=== PATIENT | female | born 1965 | race Caucasian/White ===

== ENCOUNTER → 2016-12-04 | Outpatient (CLI) | payer BC ==
[~2016-12-04] MED LIST: CALCTAB5 PO; CONJ1TAB; METH500T37 PO; MONT1TAB3 PO; OMEP40CA PO; PROC1TAB5 PO; SERT-234 PO; TOPI100T20 PO; TOPI25TA99 PO; [UNRECOGNIZED DRUG - OTHER] INH; midrin
== END | disposition home or self-care (01) ==
LOC: C.PAPS 16:36
PROVIDERS: ATTEND Obstetrics & Gynecology
DX: Z01.419 Encounter for gynecological examination (general) (routine) without abnormal findings (principal); N95.9 Unspecified menopausal and perimenopausal disorder

== ENCOUNTER → 2017-02-06 | Outpatient (CLI) | payer BC | END | disposition home or self-care (01) | LOC: C.MAMM 15:35 | DX: M81.0 Age-related osteoporosis without current pathological fracture (principal) ==

== ENCOUNTER → 2017-08-08 | Outpatient (CLI) | payer OTHER ==
--- NOTE | 2017-08-08 15:10 | MAMMOGRAPHY REPORT ---
BILATERAL DIGITAL SCREENING MAMMOGRAM TOMOSYNTHESIS WITH CAD: 08/08/2017 CLINICAL HISTORY: Routine screening. Patient has no complaints. TECHNIQUE: Breast tomosynthesis in addition to standard 2D mammography was performed. Current study was also evaluated with a Computer Aided Detection (CAD) system. COMPARISON: Comparison is made to exams dated: 08/04/2016 mammogram, 01/18/2016 mammogram, 07/13/2015 mammogram, 07/06/2015 mammogram, 07/03/2014 mammogram, and 05/28/2012 mammogram - [facility]. BREAST COMPOSITION: The tissue of both breasts is heterogeneously dense, which may obscure small mas ses. FINDINGS: No suspicious masses, calcifications, or areas of architectural distortion are noted in ei ther breast. There has been no significant interval change compared to prior exams. Scattered bilater al benign-appearing calcifications are again noted. IMPRESSION: ACR BI-RADS CATEGORY 2: BENIGN There is no mammographic evidence of malignancy. A 1 year screening mammogram is recommended. The pa tient will receive written notification of the results. Approximately 10% of breast cancers are not detected with mammography. A negative mammographic report should not delay biopsy if a clinically suggestive mass is present. Alesha Marie M.D. /:08/08/2017 08:31:29 Latex Thread Machine Operator: Bettye MALAGON)(M), [facility] letter sent: Normal 1/2 BI-RADS Code: ACR BI-RADS Category 2: Benign
== END | disposition home or self-care (01) ==
LOC: C.MAMM 08:05
PROVIDERS: ATTEND Obstetrics & Gynecology
DX: Z12.31 Encounter for screening mammogram for malignant neoplasm of breast (principal)

== ENCOUNTER 2020-05-20 16:03 | Inpatient (IN) ==
[2020-05-20] MEDS ORDERED: LIDO/EPINEPHRINE/SOD BICARB 20 ML VIAL ONE (16:18)
[2020-05-20] MEDS ORDERED: MoRPHine SULFATE 2 MG/ML CARP ONE (17:18)
--- NOTE | 2020-05-20 17:31 | XRay Report ---
SINGLE VIEW CHEST CLINICAL HISTORY: Status post chest tube placement. FINDINGS: An AP, portable, supine chest radiograph is compared to study dated 05/20/2020 and correlat ed with chest CT dated 07/23/2018. A left internal jugular central venous infusion port is unchanged in position. A chest tube has been placed at the left lung base. The left-sided pneumothorax has signif icantly decreased in size. A small residual left apical pneumothorax is seen with approximately 1.5 c m of pleural separation. There is elevation of the left hemidiaphragm with atelectasis at the left parish ng base in a small left pleural effusion. The right lung appears clear. The trachea is midline. No ri ght-sided pneumothorax is seen. The bony thorax is grossly intact. IMPRESSION: A left-sided chest tube has been placed as above. The left pneumothorax has significantly decreased in size. ACT 112: Negative or not required by law. Electronically signed by: Jonathan Leo M.D. 05/20/2020 5:30 PM
--- NOTE | 2020-05-20 17:34 | Operative Report ---
PG Post Operative Report Pre & Post Diagnosis Large left pneumothorax s/p port placement I identified the patient and participated in the time-out.: Yes Procedure Insertion of left chest tube, 20 Fr Surgeon Ilan Vee, Framing Specialist None Estimated Blood Loss 5 Findings Consistent with Post-Op Diagnosis [place] of air upon entrance to thoracic cavity Specimens None Drains 20Fr Chest tube Anesthesia Type Local Complications none Indications 55 yo female with large left pneumothorax s/p mediport placement Description of Procedure Patient was placed in the supine position with her left arm abducted over her head. The left chest was prepped and draped in the usual sterile fashion. A timeout was called, procedure was verified as left chest tube placement. Surgical and nursing teams agreed and the procedure was begun. Using the infra- mammary fold as a landmark, the skin was anesthetized between the 4th and 5th rib space as well as the periosteum of the rib itself. An incision was made using an #11 blade scalpel and the subcutaneous tissue was spread using a Elena clamp. Then the thoracic cavity was entered blunty using a Elena clamp going just over the 5th rib. A gush of air was noted. Finger sweep was performed and no adhesions were noted. A 20Fr chest tube was then placed aimed toward the apex. The 12cm line was at the skin level. The chest tube was then sutured into place using 2-0 silk suture and attached to the Pleuravac with wall suct ion. Vaseline gauze occlusive dressing was applied. The patient tolerated the procedure well and post-procedure X-ray was ordered. I attest to the content of the Intraoperative Record and any orders documented therein. Any exceptions are noted below.
--- NOTE | 2020-05-20 17:39 | History & Physical Report ---
Date of Service May 20, 2020 Assessment & Plan (1) Pneumothorax: Admission and Anticipated Discharge Date Admission Date: This is a 55y F with a PMH of ovarian ca who is s/p mediport placement on 05/17/20 who presented to the [facility] on 05/20/20 with complaints of shortness of breath. She was asked to come in and obtain a CXR which revealed a moderate to large L pneumothorax. Patient was evaluated in the ED and a 20F chest tube was placed by Dr. Vee. Patient tolerated the procedure well. We will plan to admit the patient, keep chest tube to -20 continuous suction, and repeat CXR tomorrow morning. Will place patient on supplemental nasal cannula and continuous pulse ox. Plan will be to keep CT to suction for at least 48 hours. History of Present Illness Primary Care Provider: Jose Prado Jr, DO This is a 55y F with a PMH of ovarian ca who is s/p mediport placement on 05/17/20 who presented to the [facility] on 05/20/20 with complaints of shortness of breath. Patient reports she started to experience some shortness of breath and pain into her L chest starting sunday night after her mediport placement. She stated she eventually could not get comfortable in certain positions and could not lie on her L side. She was able to go to her chemo appointment this week without any issues noted with the port. Today, she called into the office due to progressive symptoms and she was asked to come in to obtain a CXR. CXR subsequently revealed a moderate to large left sided pneumothorax. Results were noted and she was asked to come into the ED for further evaluation. Allergies Allergy/AdvReac Type Severity Reaction Status Date / Time doxycycline Allergy Mild RASH Verified 05/17/20 05:47 Penicillins AdvReac Mild Nausea, Verified 05/17/20 05:47 diarrhea Home Medications Home Medications Medication Instructions Recorded Confirmed Type pantoprazole 40 mg granules 40 mg PO QAM 07/28/19 05/17/20 History delayed-release for susp in packet montelukast 10 mg tablet 10 mg PO QPM tab 11/05/19 05/17/20 History sertraline 100 mg tablet 200 mg PO QPM tab 11/05/19 05/17/20 History dapsone 25 mg PO BID 04/13/20 05/17/20 History famotidine 20 mg PO QAM 04/13/20 05/17/20 History cholecalciferol (vitamin D3) 50 50 mcg PO QAM 05/11/20 05/17/20 History mcg (2,000 unit) capsule fexofenadine 180 mg tablet 180 mg PO HS 05/11/20 05/17/20 History fluticasone propionate 50 1 spray INTRANASAL BID 05/11/20 05/17/20 History mcg/actuation nasal spray,suspension topiramate 100 mg tablet 100 mg PO QPM 05/11/20 05/17/20 History Ajovy Autoinjector 225 mg SUBCUT UD 05/12/20 05/17/20 History Qvar RediHaler 1 inh INHALATION QAM 05/12/20 05/17/20 History Ubrelvy 50 mg PO UD PRN 05/12/20 05/17/20 History prochlorperazine maleate 5 mg PO BID PRN 05/12/20 05/17/20 History [Compazine] Past Med/Surg History Medical History Anxiety and depression Asthma "MILD" Environmental allergies GERD (gastroesophageal reflux disease) History of anorexia nervosa History of ileus S/P HYSTERECTOMY 6 WEEKS AGO Itching REASON FOR DAPSONE Low iron HX IRON INFUSION Migraine Ovarian cancer PRESENT DX Surgical History H/O total hysterectomy + REMOVAL OVARIAN CYSTECTOMY History of esophagogastroduodenoscopy (EGD) History of knee surgery patella repair left Nausea and vomiting after administration of anesthetic agent [place] teeth removed Family History Grandmother (Maternal) Breast cancer Hypertension Grandfather (Maternal) No problems noted. 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 Seatbelt Use: always Sunscreen Use: Yes Assistive Devices: Glasses Review of Systems Review of Systems: All systems reviewed & are unremarkable except as noted in HPI & below Respiratory: + dyspnea Cardiovascular: Additional Comments: L sided chest pain Physical Exam Physical Exam: awake/alert Constitutional: + thin and cooperative; no acute distress and not diaphoretic Eyes: PERRL, conjunctivae normal, anicteric sclerae Neck: trachea midline, no thyromegaly Respiratory: normal respiratory effort; no respiratory distress Cardiovascular: RRR, no murmur, no edema Gastrointestinal (Abdomen): Inspection/Auscultation: abdomen normal to inspection Percussion/Palpation: abdomen soft Musculoskeletal: no cyanosis or clubbing, extremities motor strength 5/5 Skin: no rashes, warm and dry L mediport noted, incisions c/d/i with dermabond overtop, ecchymosis noted michelle-port Psychiatric: A+Ox3, euthymic affect Results & Data Results & Data ([facility]) Vital Signs (Past 12 Hours) Vital Signs Temp Pulse Resp BP Pulse Ox 05/20/20 16:09 36.9 C 92 H 18 119/77 94 XR chest 2V PA/lateral CLINICAL HISTORY: R07.9 - Chest pain, unspecified COMPARISON STUDY: 05/17/2020 FINDINGS: There is a moderate to large left-sided pneumothorax with pleural separation of 8 cm. There is a left-sided Mediport catheter. There are left lower lobe airspace opacities, likely atelectatic.[ IMPRESSION: Moderate to large left-sided pneumothorax with pleural separation of 8 cm. ACT 112: Negative or not required by law. Electronically signed by: Keanu Bowling M.D. 05/20/2020 3:56 PM Code Status & VTE Plan VTE Prophylaxis Plan VTE Prophylaxis will be ordered: Yes Supervising Physician Co-Signing Physician Notes I personally saw and evaluated the patient with Leisa Lim PA-C and agree with the assessment and plan 55 yo female with L PTX s/p mediport placement -Chest tube placed with good re-expansion of lung -Keep to wall suction -Repeat CXR in AM -Pain control PRN -Continuous 2L O2 NC PG Care Time/CCT Total # of Minutes Spent Total Time Spent with Patient: Total time spent is greater than 50% in coordination of care (as documented) at patient's floor/unit and/or counseling patient: Coding Level of Care Code None Diagnoses Pneumothorax J93.9
[2020-05-20] MEDS ORDERED: oxyCODONE HCL IR 5 MG TAB (IMMEDIATE RELEASE) PO PRN (18:51)
[2020-05-20] MEDS ORDERED: PROCHLORPERAZINE MALEATE 5 MG TAB PO PRN (18:51)
[2020-05-20] MEDS: MoRPHine SULFATE 2 MG/ML CARP IV PRN (21:10)
[2020-05-20] MEDS: SERTRALINE HCL 100 MG TABLET PO SCH (21:14)
[2020-05-20] MEDS: MONTELUKAST SODIUM 10 MG TABLET PO SCH (21:14)
[2020-05-20] MEDS: TOPIRAMATE 100 MG TAB PO SCH (21:15)
[2020-05-20] MEDS: FEXOFENADINE HCL 180 MG TAB PO SCH (21:15)
[2020-05-20] MEDS: FLUTICASONE PROPIONATE NA SPR 16 GM BTL SCH (21:27)
[2020-05-20] MEDS: ONDANSETRON 8MG OD TAB PO PRN (21:28)
[2020-05-20] MEDS: OLANZAPINE 2.5 MG TAB PO SCH (21:28)
[2020-05-21] MEDS: MoRPHine SULFATE 2 MG/ML CARP IV PRN (03:59)
[2020-05-21] MEDS: ONDANSETRON 8MG OD TAB PO PRN ×2 (07:44→17:46)
[2020-05-21] MEDS: FAMOTIDINE 20 MG TAB PO SCH (07:45)
[2020-05-21] MEDS: FLUTICASONE PROPIONATE NA SPR 16 GM BTL SCH ×2 (07:45→20:01)
[2020-05-21] MEDS: FLUTICASONE FUROATE 100MCG 14 PUFFS/INHALER INH SCH (07:45)
--- NOTE | 2020-05-21 07:53 | XRay Report ---
XR chest 1V portable HISTORY: L pneumothorax s/p chest tube COMPARISON: Chest 05/20/2020. FINDINGS: Left-sided chest tube terminates in the left midlung zone. Decrease in size in a tiny left apical pneumothorax which demonstrates a maximal pleural gap of 4 mm. Left jugular Port-A-Cath termin ates in the distal SVC. Left basilar subsegmental atelectasis persists. Right lung is clear. No pleur al effusions. IMPRESSION: Decrease in size in a tiny left pneumothorax. Left-sided chest tube appears in good position. ACT 112: Negative or not required by law. Electronically signed by: William Jaimes M.D. 05/21/2020 7:52 AM
--- NOTE | 2020-05-21 08:19 | Surgery Progress Note ---
Date of Service May 21, 2020 Assessment & Plan (1) Pneumothorax: Patient feeling improvement in her symptoms CXR this AM revealed decrease in size in a tiny L pneumothorax; Chest tube in good position For now will continue chest tube to -20 suction, will obtain another AM CXR tomorrow and if looks well consider placing to waterseal vs clamping prior to removal Will remove oxycodone and add tylenol+ codeine if needed, not to exceed more than 3grams of acetaminophen within 24 hours Admission and Anticipated Discharge Date Admission Date: May 20, 2020 Supervising Physician Co-Signing Physician Notes I personally saw and evaluated the patient with Leisa Lim PA-C and agree with the assessment and plan 55 yo female with iatrogenic L PTX s/p mediport placement on 05/17 -PTX nearly resolved on AM CXR -Leave to suction another 24 hours -Repeat CXR in AM Subjective Patient feeling well this AM. States her breathing is improved. Her pain s/p chest tube procedure yesterday is also improving. She states she does not like how oxycodone makes her feel so she may try tylenol today for pain. Physical Exam Physical Exam: awake/alert Respiratory: normal respiratory effort; no respiratory distress Results & Data ([facility]) Vital Signs (Past 12 Hours) Vital Signs Temp Pulse Resp BP Pulse Ox 05/21/20 07:12 36.5 C 76 16 100/67 94 05/21/20 03:34 36.8 C 80 16 106/71 94 05/20/20 21:52 36.5 C 81 16 109/71 96 05/20/20 20:43 36.5 C 106 H 18 105/71 92 PG Care Time/CCT Total # of Minutes Spent Total Time Spent with Patient: Total time spent is greater than 50% in coordination of care (as documented) at patient's floor/unit and/or counseling patient: Coding Level of Care Code None Diagnoses Pneumothorax J93.9
[2020-05-21] MEDS: PANTOprazole 40 MG TAB PO SCH (09:04)
[2020-05-21] MEDS: ACETAMINOPHEN 325 MG TAB PO PRN ×3 (09:05→17:45)
--- NOTE | 2020-05-21 19:12 | Electrocardiogram Report ---
Test Reason : Blood Pressure : / mmHG Vent. Rate : 079 BPM Atrial Rate : 079 BPM P-R Int : 140 ms QRS Dur : 062 ms QT Int : 356 ms P-R-T Axes : 080 059 084 degrees QTc Int : 408 ms Normal sinus rhythm Possible Septal infarct , age undetermined Abnormal ECG When compared with ECG of 11-MAY-2020 10:56, Septal infarct is now Present Confirmed by Bull Reyes ([id number]) on 05/21/2020 7:12:16 PM Referred By: Ilan Vee Confirmed By:Bull Reyes
[2020-05-21] MEDS: SERTRALINE HCL 100 MG TABLET PO SCH (20:01)
[2020-05-21] MEDS: FEXOFENADINE HCL 180 MG TAB PO SCH (20:01)
[2020-05-21] MEDS: OLANZAPINE 2.5 MG TAB PO SCH (20:01)
[2020-05-21] MEDS: TOPIRAMATE 100 MG TAB PO SCH (20:01)
[2020-05-21] MEDS: MONTELUKAST SODIUM 10 MG TABLET PO SCH (20:01)
[2020-05-22] MEDS: ACETAMINOPHEN 325 MG TAB PO PRN ×2 (04:04→08:00)
[2020-05-22] MEDS: ONDANSETRON 8MG OD TAB PO PRN ×3 (04:04→21:10)
--- NOTE | 2020-05-22 07:56 | XRay Report ---
SINGLE VIEW CHEST CLINICAL HISTORY: Follow-up pneumothorax. FINDINGS: An AP, portable, supine chest radiograph is compared to study dated 05/21/2020 and correlat ed with chest CT dated 07/23/2018. A left internal jugular central venous infusion port is unchanged in position a chest tube is again seen projecting over the left mid chest. There is only trace residual left apical pneumothorax with approximately 4 mm of pleural separation. There is elevation of the le ft hemidiaphragm with atelectasis an trace pleural fluid seen at the left lung base. The right lung a ppears clear. The trachea is midline. No right-sided pneumothorax is seen. The bony thorax is grossly intact. Minimal subcutaneous emphysema is seen along the left chest wall. IMPRESSION: 1. A left-sided chest tube remains in place with trace residual left apical pneumothorax. 2. Trace left pleural effusion. ACT 112: Negative or not required by law. Electronically signed by: Jonathan Leo M.D. 05/22/2020 7:55 AM
--- NOTE | 2020-05-22 07:57 | Surgery Progress Note ---
Date of Service May 22, 2020 Assessment & Plan (1) Pneumothorax: -CXR today shows near resolution -no air leak on suction -will place CT on water seal and repeat CXR in am with potential to remove CT and d/c to home tomorrow as above. small apical ptx still. will place on water seal...if cxr tomorrow looks good will d/c CT and consider d/c. Admission and Anticipated Discharge Date Admission Date: May 20, 2020 Subjective pt. doing well. Pain controlled. No SOB. Physical Exam Constitutional: well developed and well nourished; no acute distress Respiratory: normal respiratory effort; no respiratory distress and no labored breathing CT in place; no air leak on suction Results & Data ([facility]) Vital Signs (Past 12 Hours) Vital Signs Temp Pulse Resp BP Pulse Ox 05/22/20 06:15 36.9 C 87 15 112/73 97 05/22/20 03:49 36.8 C 90 15 117/80 96 05/21/20 23:38 36.3 C L 73 14 107/70 98 PG Care Time/CCT Total # of Minutes Spent Total Time Spent with Patient: Total time spent is greater than 50% in coordination of care (as documented) at patient's floor/unit and/or counseling patient: Coding Level of Care Code 53028 Subseq Hosp Care Lvl 1 Diagnoses Pneumothorax J93.9
[2020-05-22] MEDS: FLUTICASONE FUROATE 100MCG 14 PUFFS/INHALER INH SCH (07:59)
[2020-05-22] MEDS: FLUTICASONE PROPIONATE NA SPR 16 GM BTL SCH ×2 (07:59→20:41)
[2020-05-22] MEDS: FAMOTIDINE 20 MG TAB PO SCH (08:00)
[2020-05-22] MEDS: PANTOprazole 40 MG TAB PO SCH (09:03)
[2020-05-22] MEDS: MoRPHine SULFATE 2 MG/ML CARP IV PRN (12:18)
[2020-05-22] MEDS: GLYCERIN ADULT 12 SUPP/BOX SUPP PR PRN (15:36)
[2020-05-22] MEDS: ACETAMINOPHEN W/CODEINE #3 1 TAB PO PRN (17:58)
[2020-05-22] MEDS: TOPIRAMATE 100 MG TAB PO SCH (20:42)
[2020-05-22] MEDS: SERTRALINE HCL 100 MG TABLET PO SCH (20:42)
[2020-05-22] MEDS: MONTELUKAST SODIUM 10 MG TABLET PO SCH (20:42)
[2020-05-22] MEDS: FEXOFENADINE HCL 180 MG TAB PO SCH (20:42)
[2020-05-22] MEDS: OLANZAPINE 2.5 MG TAB PO SCH (20:42)
[2020-05-23] MEDS: ACETAMINOPHEN 325 MG TAB PO PRN ×3 (00:27→20:40)
--- NOTE | 2020-05-23 07:42 | XRay Report ---
XR chest 1V portable HISTORY: 55 years-old Female pneumothorax follow-up study in a patient with left-sided pneumothorax COMPARISON: Chest radiograph 05/22/2020 7:05 AM TECHNIQUE: Portable AP view of the chest FINDINGS: Unchanged positioning of a left IJ Ijufum-e-Bdbs catheter. Left-sided chest tube. Small left apical p neumothorax, apical pleural separation of 12 mm, previously 4 mm. Pneumothorax component at the left lung base is also apparent. Right lung is clear. No overt pulmonary edema or airspace consolidation t ypical for pneumonia. Possible trace left pleural effusion. Bones appear normal. IMPRESSION: Unchanged positioning of the left-sided chest tube with slightly increased size of the sm all left-sided pneumothorax. ACT 112: Negative or not required by law. The above report was generated using voice recognition software. It may contain grammatical, syntax o r spelling errors. Electronically signed by: Mello Calero M.D. 05/23/2020 7:41 AM
[2020-05-23] MEDS: ONDANSETRON 8MG OD TAB PO PRN ×3 (08:11→23:44)
[2020-05-23] MEDS: FLUTICASONE FUROATE 100MCG 14 PUFFS/INHALER INH SCH (08:12)
[2020-05-23] MEDS: FAMOTIDINE 20 MG TAB PO SCH (08:12)
[2020-05-23] MEDS: FLUTICASONE PROPIONATE NA SPR 16 GM BTL SCH ×2 (08:13→20:41)
--- NOTE | 2020-05-23 08:33 | Surgery Progress Note ---
Date of Service May 23, 2020 Assessment & Plan (1) Pneumothorax: clinically doing well cxr today shows slight increase in ptx. will keep on water seal. repeat cxr tomorrow. if same or better will pull CT and d/c tomorrow. Admission and Anticipated Discharge Date Admission Date: May 20, 2020 Subjective pt feeling ok. no new complaints. no sob. Physical Exam Physical Exam: alert. nad CT in place. no air leak on pleurovac Results & Data ([facility]) Vital Signs (Past 12 Hours) Vital Signs Temp Pulse Resp BP Pulse Ox 05/23/20 07:36 37 C 96 H 16 119/83 95 05/23/20 03:06 36.9 C 85 15 109/75 96 05/23/20 00:20 36.9 C 91 H 14 102/71 95 PG Care Time/CCT Total # of Minutes Spent Total Time Spent with Patient: Total time spent is greater than 50% in coordination of care (as documented) at patient's floor/unit and/or counseling patient: Coding Level of Care Code None Diagnoses Pneumothorax J93.9
[2020-05-23] MEDS: PANTOprazole 40 MG TAB PO SCH (10:08)
[2020-05-23] MEDS: ACETAMINOPHEN W/CODEINE #3 1 TAB PO PRN ×2 (11:41→15:47)
[2020-05-23] MEDS: GLYCERIN ADULT 12 SUPP/BOX SUPP PR PRN (16:34)
[2020-05-23] MEDS: FEXOFENADINE HCL 180 MG TAB PO SCH (20:40)
[2020-05-23] MEDS: MONTELUKAST SODIUM 10 MG TABLET PO SCH (20:40)
[2020-05-23] MEDS: OLANZAPINE 2.5 MG TAB PO SCH (20:40)
[2020-05-23] MEDS: TOPIRAMATE 100 MG TAB PO SCH (20:41)
[2020-05-23] MEDS: SERTRALINE HCL 100 MG TABLET PO SCH (20:41)
--- NOTE | 2020-05-24 07:31 | XRay Report ---
SINGLE VIEW CHEST CLINICAL HISTORY: Follow-up pneumothorax. FINDINGS: An AP, portable, supine chest radiograph is compared to study dated 05/23/2020 and correlate d with chest CT dated 07/23/2018. A left internal jugular central venous infusion port is unchanged in position. A chest tube is again seen projecting over the left mid chest. A small residual left apical pneumothorax is unchanged from yesterday with approximately 12 mm of pleural separation. There is el evation of the left hemidiaphragm with atelectasis an trace pleural fluid seen at the left lung base. The right lung appears clear. The trachea is midline. No right-sided pneumothorax is seen. The bony thorax is grossly intact. Minimal subcutaneous emphysema is seen along the left chest wall. IMPRESSION: 1. A left-sided chest tube remains in place. A small residual left apical pneumothorax is unchanged f rom yesterday. 2. Trace left pleural effusion. ACT 112: Negative or not required by law. Electronically signed by: Jonathan Leo M.D. 05/24/2020 7:30 AM
[2020-05-24] MEDS: ACETAMINOPHEN 325 MG TAB PO PRN (08:47)
[2020-05-24] MEDS: FLUTICASONE FUROATE 100MCG 14 PUFFS/INHALER INH SCH (08:47)
[2020-05-24] MEDS: FLUTICASONE PROPIONATE NA SPR 16 GM BTL SCH (08:47)
[2020-05-24] MEDS: ONDANSETRON 8MG OD TAB PO PRN (08:48)
[2020-05-24] MEDS: FAMOTIDINE 20 MG TAB PO SCH (08:48)
[2020-05-24] MEDS: PANTOprazole 40 MG TAB PO SCH (08:48)
--- NOTE | 2020-05-24 09:21 | Surgery Progress Note ---
Date of Service May 24, 2020 Assessment & Plan (1) Pneumothorax: patient here with L sided ptx s/p mediport placement chest tube was initially to suction but when placed on water seal there was noted to be a small increase in ptx; it has since been to water seal >24 hours and CXR this AM reveals a small residual left apical pneumothorax that is unchanged from yesterday patient denies any new chest pain or shortness of breath likely anticipate removing chest tube later today and discharge to home as above. feeling well. xray same as yesterday. CT removed without difficulty. will d/c home today. f/u next week. Admission and Anticipated Discharge Date Admission Date: May 20, 2020 Subjective Patient denies any complaints. She denies any chest pain or shortness of breath. Looking forward to going home. Physical Exam Physical Exam: awake/alert Respiratory: normal respiratory effort; no respiratory distress L sided chest tube [facility]) Vital Signs (Past 12 Hours) Vital Signs Temp Pulse Resp BP Pulse Ox 05/24/20 07:41 36.9 C 97 H 16 124/86 99 05/23/20 23:41 37 C 87 16 142/84 H 95 SINGLE VIEW CHEST CLINICAL HISTORY: Follow-up pneumothorax. FINDINGS: An AP, portable, supine chest radiograph is compared to study dated 05/23/2020 and correlated with chest CT dated 07/23/2018. A left internal jugular central venous infusion port is unchanged in position. A chest tube is again seen projecting over the left mid chest. A small residual left apical pneumo thorax is unchanged from yesterday with approximately 12 mm of pleural separation. There is elevation of the left hemidiaphragm with atelectasis an trace pleural fluid seen at the left lung base. The right lung appears clear. The trachea is midline. No right-sided pneumothorax is seen. The bony thorax is grossly intact. Minimal subcutaneous emphysema is seen along the left chest wall. IMPRESSION: 1. A left-sided chest tube remains in place. A small residual left apical pneumothorax is unchanged from yesterday. 2. Trace left pleural effusion. ACT 112: Negative or not required by law. Electronically signed by: Jonathan Leo M.D. 05/24/2020 7:30 AM PG Care Time/CCT Total # of Minutes Spent Total Time Spent with Patient: Total time spent is greater than 50% in coordination of care (as documented) at patient's floor/unit and/or counseling patient: Coding Level of Care Code None Diagnoses Pneumothorax J93.9
--- NOTE | 2020-05-25 10:22 | Discharge Summary ---
Date of Service May 25, 2020 Admission HPI Per Admitting Provider This is a 55y F with a PMH of ovarian ca who is s/p mediport placement on 05/17/[address] [facility] on 05/20/20 with complaints of shortness of breath. Patient reports she started to experience some shortness of breath and pain into her L chest starting sunday night after her mediport placement. She stated she eventually could not get comfortable in certain positions and could not lie on her L side. She was able to go to her chemo appointment this week without any issues noted with the port. Today, she called into the office due to progressive symptoms and she was asked to come in to obtain a CXR. CXR subsequently revealed a moderate to large left sided pneumothorax. Results were noted and she was asked to come into the ED for further evaluation. Principal Diagnosis left pneumothorax Discharge Exam awake/alert Constitutional + thin and cooperative; no acute distress and not diaphoretic Eyes PERRL, conjunctivae normal, anicteric sclerae Respiratory normal respiratory effort; no respiratory distress and no labored breathing saturating well on room air Discharge Data Allergies Allergy/AdvReac Type Severity Reaction Status Date / Time doxycycline Allergy Mild RASH Verified 05/17/20 05:47 gluten AdvReac Mild Unknown Verified 05/21/20 13:32 lactose AdvReac Mild Abdominal Verified 05/21/20 13:32 Pain Penicillins AdvReac Mild Nausea, Verified 05/17/20 05:47 diarrhea Hospital Course (1) Pneumothorax on left: This is a 55y F with a PMH of ovarian ca who is s/p mediport placement on 05/17/20 who presented [address] the [facility] on 05/20/20 with complaints of shortness of breath. Workup with a CXR revealed a left sided pneumothorax. A chest tube was placed in the ER by Dr. Vee. A post placement CXR revealed lung had re- expanded. Patient was admitted and chest tube was kept to -20 suction for ~48hours. On Tuesday 05/22 AM CXR showed near resolution of ptx & decision was made to trial the chest tube to water seal as patient clinically feeling much better. CXR obtained on 05/23 showed a slightly increased size in L ptx. Plan to keep chest tube to water seal and repeat imaging again in the AM. On 05/24 CXR showed no change in small residual ptx. During patient's admission she denied any chest pain or shortness of breath with chest tube in place. On 05/24 decision was made to remove chest tube which was performed without event. She was deemed stable for discharge to home thereafter in stable condition. She was saturating well on room air and denied any dyspnea. She was asked to follow up in clinic within 1 week. Total Time Total Time Spent Total Time Spent (In Minutes): 15 Discharge Plan Discharge Items Patient Disposition: Home - Self-Care Reason For Visit: PNEUMOTHORAX Discharge Diagnosis: pneumothorax Activity: Per Instructions section Lifting: Gradually increase as tolerated Bathing Comment: may shower 48hours after chest tube removed. no soaking in tubs/pools Exercise/Sports: Gradually increase as tolerated Driving/Machine Use: Resume 1 day after discharge Non-emergency contact: Surgeon Call non-emergency contact if: you have any medication questions, your symptoms worsen, your pain is not controlled, your pain is worsening, your pain is unusual for you, you have a fever, your temperature is above 101.5, your wound has increased redness, your wound has increased drainage and your wound pain has increased Follow-up/Referrals: Ilan Vee DO [Emergency Provider] - 06/01/20 9:45 am (Please call to schedule follow up in clinic within 2 weeks) Jose Prado Jr, DO [Primary Care Provider] - 05/31/20 11:00 am (TELE HEALTH APPT WITH PCP ; PCP WILL CALL YOU ON TELEPHONE) Diet: Regular Addtl Attending Provider Instructions: Addtl Full Stack Developer Provider Instructions: Please change dressing around your chest tube site daily. Cover with vaseline 4x4 gauze, dry 4x4 gauze, and adhere with medical tape. Pending Studies at Discharge: No Stand-Alone Forms: [facility] [employer], Smoking Cessation Medications and DC Order Prescriptions: Continued cholecalciferol (vitamin D3) 50 mcg (2,000 unit) capsule 50 mcg PO QAM RF: 0 fluticasone propionate [Flonase Allergy Relief] 50 mcg/actuation spray,suspension 1 spray intranasal BID RF: 0 fexofenadine [Liana Allergy] 180 mg tablet 180 mg PO HS RF: 0 topiramate [Topamax] 100 mg tablet 100 mg PO QPM RF: 0 Protonix [address] for susp in packet 40 mg PO QAM RF: 0 sertraline 100 mg tablet 200 mg PO QPM RF: 0 montelukast 10 mg tablet 10 mg PO QPM RF: 0 prochlorperazine maleate [Compazine] 5 mg Tablet 5 mg PO BID PRN (Reason: Nausea) RF: 0 Qvar RediHaler 40 mcg/actuation Hfa Aerosol Breath Activated 1 inh INHALATION QAM RF: 0 Ubrelvy 50 mg Tablet 50 mg PO UD PRN (Reason: Migraine Headache) RF: 0 Ajovy Autoinjector 225 mg/1.5 mL Auto-Injector 225 mg SUBCUT UD RF: 0 famotidine 20 mg tablet 20 mg PO QAM RF: 0 dapsone 25 mg tablet 25 mg PO BID RF: 0 Discharge Orders: Discharge Order (Routine); Ordered 05/24/20 Ordered By: Manpreet Owen/Other Patient Handouts: DVT Post Op Prevention, Pneumothorax (Collapsed Lung) Admission Data Admit Date/Time: 05/20/20 17:26 Attending Provider: Ilan Vee Admit Provider: Ilan Vee Primary Care Provider: Jose Prado Jr Other Interventions: Discharge Summary Assessment (RN) Last Done: 05/24/20 13:57 Coding Level of Care Code D/C Day Management <30 mins Diagnoses Pneumothorax on left J93.9
== END 2020-05-24 14:40 | disposition home or self-care (01) | DRG 200 ==
LOC: ED 16:03 → 3E 17:26

== ENCOUNTER 2022-02-26 15:20 | Inpatient (IN) ==
--- NOTE | 2022-02-26 15:51 | ED Triage Note ---
Date of Service February 26, 2022 History of Present Illness This patient was briefly evaluated while in triage. An abbreviated physical exam was performed. This patient is a 57-year-old Female with past medical history of ovarian cancer on chemo who presents to the ED for evaluation of possible blockage of c olostomy. Last normal output was yesterday morning around 6am. Having diffuse abdominal cramping since last night, but focusing around the stoma today. Has not been eating today, just drinking. Reports nausea but no vomiting. Was eating normally prior to today. Had paracentesis 2 days ago. No fevers or chills. Physical Exam CONSTITUTIONAL: No acute distress. Well appearing. RESPIRATORY: Clear to auscultation bilaterally. Equal expansion bilaterally. CARDIOVASCULAR: Regular rate and rhythm with no murmurs, rubs or gallops. Normal peripheral perfusion. GASTROINTESTINAL: Diffuse abdominal distention, mildly tender throughout. Decreased bowel sounds. Ostomy site tenderness, no output in bag. NEUROLOGIC: Alert and oriented X 4 with normal affect. Initial orders for labs and / or imaging were placed and patient was placed in the waiting area until a bed is available. Please see further documentation for the full ED course.
[2022-02-26] MEDS ORDERED: ONDANSETRON INJ 2 MG/ML 2 ML VIAL IV STA ×3 (15:52→20:01)
[2022-02-26 16:32] LABS: Basophils # (auto) 0.03 K/uL (0-0.2); Basophils % (auto) 0.5 %; Eosinophils # (auto) 0.02 K/uL (0-0.50); Eosinophils % (auto) 0.4 %; Hematocrit (blood only) 39.2 % (34.1-44.9); Hemoglobin 12.8 g/dl (12.0-16.0); Immature Granulocytes # (auto) 0.02 K/uL (0.00-0.02); Immature Granulocytes % (auto) 0.4 %; Lymphocytes # (auto) 1.11 K/uL (1.2-3.4); Lymphocytes % (auto) 19.8 %; Mean Corpuscular Hemoglobin 31.6 pg (25.0-34.0); Mean Corpuscular Hgb Conc 32.7 g/dL (32.0-36.0); Mean Corpuscular Volume 96.8 fL (80.0-100.0); Mean Platelet Volume 9.9 fL (9.4-12.3); Monocytes # (auto) 0.61 K/uL (0.24-0.82); Monocytes % (auto) 10.9 %; Neutrophils # (auto) 3.82 K/uL (1.4-6.5); Platelet Count 280 K/uL (130-400); RDW Coefficient of Variation 15.3 % (11.5-14.5); RDW Standard Deviation 54.4 fL (36.4-46.3); Red Blood Count 4.05 M/uL (3.93-5.22); White Blood Count 5.61 K/ul (4.8-10.8)
[2022-02-26 17:13] LABS: Alanine Aminotransferase 13 U/L (7-52); Albumin Globulin Ratio 1.2 (0.9-2); Albumin Level 4.1 gm/dl (3.4-5.0); Alkaline Phosphatase 108 U/L (34-104); Anion Gap 9 (3-11); BUN Creatinine Ratio 12.5 (10-20); Bilirubin,Total 0.6 mg/dl (0.2-1.0); Blood Urea Nitrogen 9 mg/dl (6-23); Calcium 9.2 mg/dl (8.5-10.1); Carbon Dioxide 25 mmol/L (21-32); Chloride 98 mmol/L (98-107); Creatinine Clr Calc Pharmacy 58.3 ml/min; Est GFR (African American) 109.3 ml/min; Est GFR (Non-African American) 94.3 ml/min; Globulin 3.4 gm/dl (2.5-4.0); Glucose 99 mg/dl (70-99(Fasting)); Lipase 3 U/L (11-82); Sodium 132 mmol/L (136-145); Total Protein 7.5 gm/dl (6.0-8.3)
[2022-02-26] MEDS ORDERED: SODIUM CHLORIDE 0.9% 1000ML 1,000 ML IV ONE (17:19)
[2022-02-26] MEDS ORDERED: MoRPHine SULFATE 4 MG/ML 1 ML CARP\\VIAL IV STA (17:19)
--- NOTE | 2022-02-26 17:32 | Emergency Department Note ---
Impression & Plan Diffuse abdominal pain, Ovarian cancer, Abdominal distension, Large bowel obstruction ED Provider Note NAME: NIVIA ASKEW AGE: 57 SEX: F : 1965 ARRIVES VIA: Walk-In INFORMANT: [Patient] ED PROVIDER(S): [Jonathan Bryson MD] CHIEF COMPLAINT: Ostomy problem HISTORY OF PRESENT ILLNESS: The patient is a 57-year-old female who presents to the ED with complaints of difficulty with her ostomy output. She has had 36 hours of no output. She has had some abdominal distention and now some colicky abdominal pain that at times is severe. She feels quite bloated. There has been no fever, no cough or congestion or respiratory complaints. She is concerned about a bowel blockage. REVIEW OF SYSTEMS: See HPI for pertinent positives and negatives. A total of ten systems were reviewed and were otherwise negative. PMHx/PSHx: See Below SOCIAL HISTORY: See Below. PHYSICAL EXAM: GENERAL: Patient is in no acute distress. Thin and frail. HEENT: No acute trauma, normocephalic atraumatic, mucous membranes moist, no nasal congestion, no scleral icterus. NECK: No stridor, no adenopathy, no meningismus, trachea is midline. LUNGS: Clear to auscultation bilaterally, no wheeze, no rhonchi, breath sounds equal. HEART: Without murmurs gallops or rubs, regular rate and rhythm. ABDOMEN: Soft, mildly diffusely tender, there is some abdominal distention. Bowel sounds are hyperactive. There is an ostomy that is beneath an empty ostomy bag. The ostomy is on the left. EXTREMITIES: No cyanosis or edema, full range of motion of all the joints without pain or difficulty, no signs for acute trauma. NEUROLOGIC: Oriented x 3, no acute motor or sensory deficits, no focal weakness. SKIN: No rash, no jaundice, no diaphoresis. Pale. DIFFERENTIAL DIAGNOSIS: Appendicitis, ovarian cyst, ovarian torsion, diverticulitis, UTI, obstruction, mesenteric ischemia, aortic pathology, inflammatory bowel disease, renal colic, PUD, pancreatitis, biliary pathology, hernia, volvulus, constipation, as well as other pathologies. EMERGENCY DEPARTMENT COURSE/PROCEDURES: MEDICAL DECISION MAKING: There is no leukocytosis or concerning anemia. There is a normal platelet count. Potassium was a bit low at 3.2. Sodium somewhat low at 132. No renal failure. Lactic acid level was not elevated making bowel ischemia less likely. No concerning liver enzyme elevation. No evidence for pancreatitis. Urinalysis does not show infection. COVID test was negative. Abdominal and pelvis CT shows a large bowel obstruction thought secondary to adhesions. On exam, the patient's abdomen was distended, her colostomy bag was empty. The patient received IV saline, 1 L. She was given IV potassium, IV Zofran. She received IV morphine. I spoke to general surgery, Dr. Law. For now, acute surgical intervention is not warranted. The patient should be hospitalized for decompression via NG tube. Hopefully, things will open spontaneously. If surgery is required, the patient may need transfer back to [facility] as this is where most of her surgeries have been performed. I spoke with the patient, I talked to the case finisher. The on-call hospitalist was consulted. Past Med/Surg History Medical History Anxiety and depression Asthma LAST USED RESCUE INHALER>BEEN A WHILE Bilateral tinnitus Colostomy present Environmental allergies GERD (gastroesophageal reflux disease) Gluten intolerance History of anorexia nervosa History of ileus S/P HYSTERECTOMY Itching REASON FOR DAPSONE Low iron HX IRON INFUSION Migraine Ovarian cancer PRESENT DX>REASON FOR A-PORT (HAS RECIEVED 6 CYCLES OF CHEMO 1 YEAR AGO) Surgical History H/O abdominal surgery AT [facility] 07/20/21 TO REMOVE CANCER IN ABDOMEN/COLON RESECTION WITH COLOSTOMY & INTRAPERITONEAL CHEMO H/O total hysterectomy + REMOVAL OVARIAN CYSTECTOMY History of colonoscopy History of esophagogastroduodenoscopy (EGD) History of knee surgery LEFT PATELLA REPAIR Nausea and vomiting after administration of anesthetic agent Port-A-Cath in place (08/30/21) Insertion Access Port with Fluoroscopy(Right) - Ilan Vee DO 08/30/2021 Gar[place] teeth removed Family History Grandmother (Maternal) Breast cancer Hypertension Grandfather (Maternal) No problems noted. 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 Seatbelt Use: always Sunscreen Use: Yes Assistive Devices: Glasses Allergies Allergies Allergy/AdvReac Type Severity Reaction Status Date / Time doxycycline Allergy Intermediate RASH Verified 02/26/22 17:42 gluten AdvReac Intermediate Abdominal Verified 02/26/22 17:42 Pain lactose AdvReac Intermediate Abdominal Verified 02/26/22 17:42 Pain Penicillins AdvReac Intermediate Nausea, Verified 02/26/22 17:42 diarrhea Home Meds Home Medications Medication Instructions Recorded Confirmed pantoprazole 40 mg granules 40 mg PO QAM 07/28/19 02/26/22 delayed-release for susp in packet (Protonix) montelukast 10 mg tablet 10 mg PO QPM 11/05/19 02/26/22 sertraline 100 mg tablet 200 mg PO QPM 11/05/19 02/26/22 dapsone 25 mg tablet 25 mg PO BID 04/13/20 02/26/22 famotidine 20 mg tablet 20 mg PO QAM 04/13/20 02/26/22 cholecalciferol (vitamin D3) 50 50 mcg PO QAM 05/11/20 02/26/22 mcg (2,000 unit) capsule fexofenadine 180 mg tablet 180 mg PO HS 05/11/20 02/26/22 (Liana Allergy) fluticasone propionate 50 1 spray intranasal BID 05/11/20 02/26/22 mcg/actuation nasal spray,suspension (Flonase Allergy Relief) topiramate 100 mg tablet (Topamax) 100 mg PO QPM 05/11/20 02/26/22 beclomethasone dipropionate 40 1 inh inhalation QAM 05/12/20 02/26/22 mcg/actuation HFA breath activated aerosol (Qvar RediHaler) fremanezumab-vfrm 225 mg/1.5 mL 225 mg subcut MONTHLY 05/12/20 02/26/22 subcutaneous auto-injector (Ajovy) prochlorperazine maleate 5 mg 5 mg PO BID PRN Nausea 05/12/20 02/26/22 tablet (Compazine) acetaminophen 325 mg tablet 325 mg PO QID PRN Pain 08/13/20 02/26/22 (Tylenol) pvsidzacarqcu-krjvohtfqsngrnhmuo-ujyquioyyfslk 1 cap PO DAILY PRN MIGRAINES 02/26/22 capsule ondansetron HCl 4 mg tablet 4 mg PO Q6H PRN Nausea 08/25/21 02/26/22 oxycodone-acetaminophen 5 mg-325 1 tab PO TID PRN Pain, Mild 01/16/22 02/26/22 mg tablet Results & Data (ED) Vital Signs Vital Signs - 24 hr 02/26/22 15:43 02/26/22 17:30 02/26/22 20:00 Temperature 36.5 C Temperature Source Temporal Artery Scan Pulse Rate 90 Pulse Rate [Radial] 92 H 99 H Pulse Rhythm [Radial] Regular Respiratory Rate 14 18 16 Respiratory Effort / Characteristics Non-Labored Respiratory Depth Normal Normal Respiratory Pattern Regular Blood Pressure 140/92 Blood Pressure [Right Arm] 166/99 H 135/84 Blood Pressure Mean 108 Blood Pressure Mean [Right Arm] 121 101 Pulse Oximetry 95 97 97 Oxygen Delivery Method Room Air Room Air Room Air Sepsis Recent Fever Within 48 Hours No Sepsis New/Unexplained Change in Mental Status No Sepsis Action Taken by Nursing No Action Required 02/26/22 22:00 Temperature Temperature Source Pulse Rate Pulse Rate [Radial] 83 Pulse Rhythm [Radial] Respiratory Rate 16 Respiratory Effort / Characteristics Non-Labored Spontaneous Respiratory Depth Normal Respiratory Pattern Blood Pressure Blood Pressure [Right Arm] 146/79 H Blood Pressure Mean Blood Pressure Mean [Right Arm] 101 Pulse Oximetry 93 Oxygen Delivery Method Room Air Sepsis Recent Fever Within 48 Hours Sepsis New/Unexplained Change in Mental Status Sepsis Action Taken by Prison Medications Current Medication List: was personally reviewed by me Laboratory Data Attestation: I reviewed the patient's lab results. Result diagrams: 02/26/22 16:17 02/26/22 16:42 Lab Results 02/26/22 02/26/22 02/26/22 Range/Units 16:17 16:17 16:41 WBC 5.61 (4.8-10.8) K/ul RBC 4.05 (3.93-5.22) M/uL Hgb 12.8 (12.0-16.0) g/dl Hct 39.2 (34.1-44.9) % MCV 96.8 (80.0-100.0) fL MCH 31.6 (25.0-34.0) pg MCHC 32.7 (32.0-36.0) g/dL RDW Std Deviation 54.4 H (36.4-46.3) fL RDW Coeff of Risa 15.3 H (11.5-14.5) % Plt Count 280 (130-400) K/uL MPV 9.9 (9.4-12.3) fL Immature Gran % (Auto) 0.4 % Neut % (Auto) 68.0 % Lymph % (Auto) 19.8 % Powell % (Auto) 10.9 % Eos % (Auto) 0.4 % Baso % (Auto) 0.5 % Neut # (Auto) 3.82 (1.4-6.5) K/uL Lymph # (Auto) 1.11 L (1.2-3.4) K/uL Powell # (Auto) 0.61 (0.24-0.82) K/uL Eos # (Auto) 0.02 (0-0.50) K/uL Baso # (Auto) 0.03 (0-0.2) K/uL Immature Gran # (Auto) 0.02 (0.00-0.02) K/uL Sodium 132 L (136-145) mmol/L Potassium TNP Chloride 98 (98-107) mmol/L Carbon Dioxide 25 (21-32) mmol/L Anion Gap 9 (3-11) BUN 9 (6-23) mg/dl Creatinine 0.72 (0.6-1.2) mg/dl Est Cr Clr Drug Dosing 58.3 ml/min Est GFR ( Amer) 109.3 ml/min Est GFR (Non-Af Amer) 94.3 ml/min BUN/Creatinine Ratio 12.5 (10-20) Glucose 99 (70-99(Fasting)) mg/dl Lactate 0.9 (0.4-2.0) mmol/L Calcium 9.2 (8.5-10.1) mg/dl Total Bilirubin 0.6 (0.2-1.0) mg/dl AST TNP ALT 13 (7-52) U/L Alkaline Phosphatase 108 H (34-104) U/L Total Protein 7.5 (6.0-8.3) gm/dl Albumin 4.1 (3.4-5.0) gm/dl Globulin 3.4 (2.5-4.0) gm/dl Albumin/Globulin Ratio 1.2 (0.9-2) Lipase 3 L (11-82) U/L Urine Color Urine Appearance (Clear) Urine pH (4.5-7.5) Ur Specific [place] (1.000-1.030) Urine Protein (Negative) Urine Glucose (UA) (Negative) Urine Ketones (Negative) Urine Blood (Negative) Urine Nitrite (Negative) Urine Bilirubin (Negative) Urine Urobilinogen (Negative) Ur Leukocyte Esterase (Negative) SARS-CoV-2, RNA, NAAT (NEGATIVE) 02/26/22 02/26/22 02/26/22 Range/Units 16:42 20:47 22:23 WBC (4.8-10.8) K/ul RBC (3.93-5.22) M/uL Hgb (12.0-16.0) g/dl Hct (34.1-44.9) % MCV (80.0-100.0) fL MCH (25.0-34.0) pg MCHC (32.0-36.0) g/dL RDW Std Deviation (36.4-46.3) fL RDW Coeff of Risa (11.5-14.5) % Plt Count (130-400) K/uL MPV (9.4-12.3) fL Immature Gran % (Auto) % Neut % (Auto) % Lymph % (Auto) % Powell % (Auto) % Eos % (Auto) % Baso % (Auto) % Neut # (Auto) (1.4-6.5) K/uL Lymph # (Auto) (1.2-3.4) K/uL Powell # (Auto) (0.24-0.82) K/uL Eos # (Auto) (0-0.50) K/uL Baso # (Auto) (0-0.2) K/uL Immature Gran # (Auto) (0.00-0.02) K/uL Sodium (136-145) mmol/L Potassium 3.2 L Chloride (98-107) mmol/L Carbon Dioxide (21-32) mmol/L Anion Gap (3-11) BUN (6-23) mg/dl Creatinine (0.6-1.2) mg/dl Est Cr Clr Drug Dosing ml/min Est GFR ( Amer) ml/min Est GFR (Non-Af Amer) ml/min BUN/Creatinine Ratio (10-20) Glucose (70-99(Fasting)) mg/dl Lactate (0.4-2.0) mmol/L Calcium (8.5-10.1) mg/dl Total Bilirubin (0.2-1.0) mg/dl AST 20 ALT (7-52) U/L Alkaline Phosphatase (34-104) U/L Total Protein (6.0-8.3) gm/dl Albumin (3.4-5.0) gm/dl Globulin (2.5-4.0) gm/dl Albumin/Globulin Ratio (0.9-2) Lipase (11-82) U/L Urine Color Yellow Urine Appearance Clear (Clear) Urine pH 6.0 (4.5-7.5) Ur Specific [place] 1.008 (1.000-1.030) Urine Protein Negative (Negative) Urine Glucose (UA) Negative (Negative) Urine Ketones Negative (Negative) Urine Blood Negative (Negative) Urine Nitrite Negative (Negative) Urine Bilirubin Negative (Negative) Urine Urobilinogen Negative (Negative) Ur Leukocyte Esterase Negative (Negative) SARS-CoV-2, RNA, NAAT NEGATIVE (NEGATIVE) Administered Medications Potassium Chloride (K Thiago / Wtr) 10 meq in 100 mls @ 100 mls/hr IV Q1H CRYSTAL Stop: 02/27/22 00:59 Last Admin: 02/26/22 22:02 Dose: 100 mls/hr Documented By: AN Acetaminophen (Ofirmev) 650 mg in 65 mls @ 400 mls/hr IV Q8H CRYSTAL; Protocol Stop: 03/01/22 22:59 Last Admin: 02/26/22 23:15 Dose: 400 mls/hr Documented By: SM Morphine Sulfate (Morphine Sulfate 4 Mg/Ml 1 Ml Carp\Vial) 2 mg IV Q1H PRN PRN Reason: Mild/Mod Pain (1-6) Stop: 03/12/22 17:18 Last Admin: 02/26/22 23:14 Dose: 2 mg Documented By: LISS Discontinued Medications Hydromorphone HCl (Hydromorphone Inj 0.5 Mg/0.5 Ml Syr) 0.25 mg IV NOW STA Stop: 02/26/22 21:34 Last Admin: 02/26/22 22:02 Dose: 0.25 mg Documented By: AN Sodium Chloride (Nss 1000ml) 1,000 mls @ 999 mls/hr IV .Q1H1M ONE Stop: 02/26/22 18:19 Last Infusion: 02/26/22 19:08 Dose: 0 mls/hr Documented By: Admin: 02/26/22 18:00 Dose: 999 mls/hr Documented By: GIL Potassium Chloride (K Thiago / Wtr) 10 meq in 100 mls @ 100 mls/hr IV ONE ONE; Protocol Stop: 02/26/22 18:48 Last Infusion: 02/26/22 19:08 Dose: 0 mls/hr Documented By: Admin: 02/26/22 18:02 Dose: 100 mls/hr Documented By: GIL Morphine Sulfate (Morphine Sulfate 4 Mg/Ml 1 Ml Carp\Vial) 4 mg IV NOW STA Stop: 02/26/22 17:20 Last Admin: 02/26/22 18:00 Dose: 4 mg Documented By: GIL Morphine Sulfate (Morphine Sulfate 4 Mg/Ml 1 Ml Carp\Vial) 4 mg IV Q20M PRN PRN Reason: Pain Stop: 03/12/22 17:18 Last Admin: 02/26/22 19:55 Dose: 4 mg Documented By: Admin: 02/26/22 18:41 Dose: 4 mg Documented By: GIL Ondansetron HCl (Ondansetron Inj 2 Mg/Ml 2 Ml Vial) 4 mg IV NOW STA Stop: 02/26/22 15:53 Last Admin: 02/26/22 16:52 Dose: 4 mg Documented By: GIL Ondansetron HCl (Ondansetron Inj 2 Mg/Ml 2 Ml Vial) 4 mg IV NOW STA Stop: 02/26/22 17:20 Last Admin: 02/26/22 18:00 Dose: 4 mg Documented By: GIL Ondansetron HCl (Ondansetron Inj 2 Mg/Ml 2 Ml Vial) 4 mg IV NOW STA Stop: 02/26/22 20:02 Last Admin: 02/26/22 20:26 Dose: 4 mg Documented By: CHE Prochlorperazine (Prochlorperazine 5 Mg/Ml 2 Ml Vial) 5 mg IV ONE ONE Stop: 02/26/22 21:46 Last Admin: 02/26/22 21:41 Dose: 5 mg Documented By: AN Imaging Data Radiologist's Impression: Abdomen/Pelvis CT 02/26/22 15:[address] WITH ORAL CONTRAST CT DOSE: 255.00 mGy.cm HISTORY: Acute generalized abdominal pain with abdominal distention . History of ovarian carcinoma with omental, mesenteric pelvic metastasis. Abd dist, ?obstruction, no output from ostomy TECHNIQUE: Multiaxial CT images of the abdomen and pelvis were performed following the use of oral contrast. A dose lowering technique was utilized adhering to the principles of ALARA. COMPARISON STUDY: 06/27/2021 FINDINGS: Imaged inferior cardiac chambers are unremarkable. Trace pleural effusions. Clear lung bases. No pneumatosis or pneumoperitoneum. The study is limited without the use of IV contrast. The spleen is mildly enlarged, 14.4 cm in length. Unremarkable pancreas and visualized adrenal glands. Unremarkable gallbladder. Unremarkable liver. Mild bilateral pelvocaliectasis. Mild urinary bladder distention. No abdominal aortic aneurysm. No new or progressive lymphadenopathy identified. The previously described left iliac chain adenopathy appears to have decreased in size from prior. Hysterectomy. Omental and perito james disease is suboptimally evaluated without the use of IV contrast. Small to moderate abdominal pelvic ascites has progressed from the prior study. Cystic structure posterior to the right hepatic lobe measuring 5.5 cm is suggestive of loculated ascites. Distended contrast filled stomach. Postoperative changes of the large and small bowel from partial bowel resection. There are several contrast filled dilated loops of small bowel measuring up to approximately 4.6 cm transversely. Distended fluid and stool-filled loops of large bowel measure up to 7.8 cm. There is high-grade obstruction with focal narrowing just proximal to the left lower quadrant ostomy site on image 232. Unremarkable soft tissues. No acute fracture. IMPRESSION: 1. Partial bowel resection with left lower quadrant colostomy. There is high-gr ave large bowel obstruction just proximal to the colostomy site which may be secondary to adhesions. 2. Limited evaluation of the patient's metastatic disease without the use of IV contrast. Omental and peritoneal lesions are better visualized on the prior studies. 3. Small to moderate likely malignant abdominopelvic ascites has progressed from prior. 4. No new or progressive lymphadenopathy identified. 5. Additional findings as above. ACT 112: Negative or not required by law. The above report was generated using voice recognition software. It may contain grammatical, syntax or spelling errors. Electronically signed by: Harley Calero M.D. 02/26/2022 7:52 PM Discharge Plan Visit Data Chief Complaint: Ostomy Problem Stated Complaint: BLOCKED OSTOMY ED Provider: Jonathan Bryson Discharge Problem: Diffuse abdominal pain, Ovarian cancer, Abdominal distension, Large bowel obstr uction Patient Disposition: Admitted As Inpatient Condition: Fair Forms Stand Alone Forms: [employer] [facility] Prescriptions Prescriptions: No Action cholecalciferol (vitamin D3) 50 mcg (2,000 unit) capsule 50 mcg PO QAM fluticasone propionate [Flonase Allergy Relief] 50 mcg/actuation spray,suspension 1 spray intranasal BID Rx Instructions: administer into each nostril fexofenadine [Liana Allergy] 180 mg tablet 180 mg PO HS topiramate [Topamax] 100 mg tablet 100 mg PO QPM vikvira-skyecyvyh-aukhgcqepmom Capsule 1 cap PO DAILY PRN (Reason: MIGRAINES) Rx Instructions: MIDRIN acetaminophen [Tylenol] 325 mg tablet 325 mg PO QID PRN (Reason: Pain) Protonix [address] for susp in packet 40 mg PO QAM sertraline 100 mg tablet 200 mg PO QPM montelukast 10 mg tablet 10 mg PO QPM prochlorperazine maleate [Compazine] 5 mg Tablet 5 mg PO BID PRN (Reason: Nausea) Qvar RediHaler 40 mcg/actuation Hfa Aerosol Breath Activated 1 inh INHALATION QAM Ajovy Autoinjector 225 mg/1.5 mL Auto-Injector 225 mg SUBCUT MONTHLY Rx Instructions: RECIEVES 1 X MONTHLY famotidine 20 mg tablet 20 mg PO QAM dapsone 25 mg tablet 25 mg PO BID oxycodone-acetaminophen 5-325 mg Tablet 1 tab PO TID PRN (Reason: Pain, Mild) ondansetron HCl 4 mg Tablet 4 mg PO Q6H PRN (Reason: Nausea) Referrals Referrals: Saida Senior MD [Primary Care Provider] -
[2022-02-26 17:46] LABS: Potassium 3.2 mmol/L (3.5-5.1)
[2022-02-26] MEDS ORDERED: POTASSIUM CHLORIDE / WTR 10 MEQ/100 ML PLCT IV ONE (17:49)
[2022-02-26] MEDS: MoRPHine SULFATE 4 MG/ML 1 ML CARP\\VIAL IV PRN ×3 (18:41→23:14)
--- NOTE | 2022-02-26 19:54 | CT Scan Report ---
ABDOMEN AND PELVIS CT WITH ORAL CONTRAST CT DOSE: 255.00 mGy.cm HISTORY: Acute generalized abdominal pain with abdominal distention . History of ovarian carcinoma wi th omental, mesenteric pelvic metastasis. Abd dist, ?obstruction, no output from ostomy TECHNIQUE: Multiaxial CT images of the abdomen and pelvis were performed following the use of oral co ntrast. A dose lowering technique was utilized adhering to the principles of ALARA. COMPARISON STUDY: 06/27/2021 FINDINGS: Imaged inferior cardiac chambers are unremarkable. Trace pleural effusions. Clear lung base s. No pneumatosis or pneumoperitoneum. The study is limited without the use of IV contrast. The splee n is mildly enlarged, 14.4 cm in length. Unremarkable pancreas and visualized adrenal glands. Unremar kable gallbladder. Unremarkable liver. Mild bilateral pelvocaliectasis. Mild urinary bladder distenti on. No abdominal aortic aneurysm. No new or progressive lymphadenopathy identified. The previously de scribed left iliac chain adenopathy appears to have decreased in size from prior. Hysterectomy. Oment al and peritoneal disease is suboptimally evaluated without the use of IV contrast. Small to moderate abdominal pelvic ascites has progressed from the prior study. Cystic structure posterior to the righ t hepatic lobe measuring 5.5 cm is suggestive of loculated ascites. Distended contrast filled stomach. Postoperative changes of the large and small bowel from partial bony wel resection. There are several contrast filled dilated loops of small bowel measuring up to approxi mately 4.6 cm transversely. Distended fluid and stool-filled loops of large bowel measure up to 7.8 c m. There is high-grade obstruction with focal narrowing just proximal to the left lower quadrant osto my site on image 232. Unremarkable soft tissues. No acute fracture. IMPRESSION: 1. Partial bowel resection with left lower quadrant colostomy. There is high-grade large bowel obstru ction just proximal to the colostomy site which may be secondary to adhesions. 2. Limited evaluation of the patient's metastatic disease without the use of IV contrast. Omental and peritoneal lesions are better visualized on the prior studies. 3. Small to moderate likely malignant abdominopelvic ascites has progressed from prior. 4. No new or progressive lymphadenopathy identified. 5. Additional findings as above. ACT 112: Negative or not required by law. The above report was generated using voice recognition software. It may contain grammatical, syntax o r spelling errors. Electronically signed by: Harley Calero M.D. 02/26/2022 7:52 PM
--- NOTE | 2022-02-26 21:15 | History & Physical Report ---
Date of Service February 26, 2022 Assessment & Plan (1) Large bowel obstruction: (2) Small bowel obstruction: Plan: 57yo female with a history of ovarian cancer, colostomy placement, asthma, migraine, KRISTI, and MDD presents with a one-day history of minimal ostomy output, cramping abdominal pain, nausea, and low PO intake, suspected secondary to bowel obstruction. Low ostomy output, abdominal pain, nausea, suspected secondary to bowel obstruction CT abdomen/pelvis notable for high-grade large bowel obstruction just proximal to the colostomy site which may be secondary to adhesions Discussed with night attending who does not feel patient requires NG tube placement at this time Will place NG tube if symptoms worsen or if patient develops vomiting Continue IV fluids, pain control, antiemetics, NPO status Consider general surgery consult in AM Pain control plan: APAP 1000mg IV q8h scheduled Morphine 2mg IV q1h prn moderate pain Dilaudid 0.25mg IV q3h prn severe pain LR @ 80mL/hr (x1 bag ordered) Continue to monitor Hypokalemia Potassium 3.3 on admission, suspected secondary to poor PO intake recently K rider 10mEq IV (x1) given in ED; additional K rider 10mEq IV q1h (x3 doses) ordered Trend daily BMP, magnesium Ovarian cancer Last chemotherapy treatment on (02/23) Follow-up outpatient Asthma: continue home Qvar, home montelukast held while NPO KRISTI, MDD: home sertraline held while NPO GERD: home pantoprazole and famotidine converted to IV while NPO Migraines: home topiramate held while NPO FEN: NPO, LR @ 80mL/hr (x1 bag ordered) Code status: full code DVT ppx: SCDs Dispo: med/surg (3) Ovarian cancer: (4) Port-A-Cath in place: (5) Asthma: History of Present Illness Primary Care Provider: Saida Senior MD 57yo female with a history of ovarian cancer, colostomy placement, asthma, migraine, KRISTI, and MDD presents with a one-day history of minimal ostomy output, cramping abdominal pain, nausea, and low PO intake. Patient's last output from her stoma was about 36 hours prior. Patient has been trying to stay well- hydrated and has continued taking her scheduled percocet. Patient's abdominal pain is constant, cramping, and is centered around her stoma. Patient denies fever, chills, headache, vision changes, CP, palpitations, SOB, edema, vomiting, dysuria, hematochezia, melena, lightheadedness, dizziness, numbness, tingling, weakness, or other symptoms. Denies recent illness and recent travel. Of note, patient's last chemotherapy was last (02/23) and had a paracentesis on Sunday (02/24). Patient's ostomy was placed in June. Upon arrival, vitals were notable for slightly elevated BP. Patient was afebrile, not tachycardic or tachypneic on arrival, and spO2 was adequate on room air. Initial labs were notable for mild hyponatremia (132), mild hypokalemia (3.2), and minimally elevated alk phos (108); CBC unremarkable, no other electrolyte abnormalities, LFTs otherwise normal, lipase normal, lactate not elevated. In the ED, patient required morphine IV 12mg in total (between 17:00 and 20:00), zofran IV 12mg in total, compazine IV 5mg (x1), NSS 1L bolus (x1), and one K rider. CT abdomen/pelvis was notable for: * 1. Partial bowel resection with left lower quadrant colostomy. There is high- grade large bowel obstruction just proximal to the colostomy site which may be secondary to adhesions. * 2. Limited evaluation of the patient's metastatic disease without the use of IV contrast. Omental and peritoneal lesions are better visualized on the prior studies. * 3. Small to moderate likely malignant abdominopelvic ascites has progressed from prior. Surrogate decision-maker in case of an emergency: Tee Schultz (cell: [phone]) Allergies Allergy/AdvReac Type Severity Reaction Status Date / Time doxycycline Allergy Intermediate RASH Verified 02/26/22 17:42 gluten AdvReac Intermediate Abdominal Verified 02/26/22 17:42 Pain lactose AdvReac Intermediate Abdominal Verified 02/26/22 17:42 Pain Penicillins AdvReac Intermediate Nausea, Verified 02/26/22 17:42 diarrhea Home Medications Medication Instructions Recorded Confirmed Type pantoprazole 40 mg granules 40 mg PO QAM 07/28/19 02/26/22 History delayed-release for susp in packet (Protonix) montelukast 10 mg tablet 10 mg PO QPM 11/05/19 02/26/22 History sertraline 100 mg tablet 200 mg PO QPM 11/05/19 02/26/22 History dapsone 25 mg tablet 25 mg PO BID 04/13/20 02/26/22 History famotidine 20 mg tablet 20 mg PO QAM 04/13/20 02/26/22 History cholecalciferol (vitamin D3) 50 50 mcg PO QAM 05/11/20 02/26/22 History mcg (2,000 unit) capsule fexofenadine 180 mg tablet 180 mg PO HS 05/11/20 02/26/22 History (Liana Allergy) fluticasone propionate 50 1 spray intranasal BID 05/11/20 02/26/22 History mcg/actuation nasal spray,suspension (Flonase Allergy Relief) topiramate 100 mg tablet (Topamax) 100 mg PO QPM 05/11/20 02/26/22 History beclomethasone dipropionate 40 1 inh inhalation QAM 05/12/20 02/26/22 History mcg/actuation HFA breath activated aerosol (Qvar RediHaler) fremanezumab-vfrm 225 mg/1.5 mL 225 mg subcut MONTHLY 05/12/20 02/26/22 History subcutaneous auto-injector (Ajovy) prochlorperazine maleate 5 mg 5 mg PO BID PRN Nausea 05/12/20 02/26/22 History tablet (Compazine) acetaminophen 325 mg tablet 325 mg PO QID PRN Pain 08/13/20 02/26/22 History (Tylenol) gwhlllrmbfbuu-lrsnsrrhdinnnufqop-gvizqjxkpxyak 1 cap PO DAILY PRN MIGRAINES 08/13/20 02/26/22 History capsule ondansetron HCl 4 mg tablet 4 mg PO Q6H PRN Nausea 08/25/21 02/26/22 History oxycodone-acetaminophen 5 mg-325 1 tab PO TID PRN Pain, Mild 01/16/22 02/26/22 History mg tablet Past Med/Surg History Medical History Anxiety and depression Asthma LAST USED RESCUE INHALER>BEEN A WHILE Bilateral tinnitus Colostomy present Environmental allergies GERD (gastroesophageal reflux disease) Gluten intolerance History of anorexia nervosa History of ileus S/P HYSTERECTOMY Itching REASON FOR DAPSONE Low iron HX IRON INFUSION Migraine Ovarian cancer PRESENT DX>REASON FOR A-PORT (HAS RECIEVED 6 CYCLES OF CHEMO 1 YEAR AGO) Surgical History H/O abdominal surgery AT [facility] 07/20/21 TO REMOVE CANCER IN ABDOMEN/COLON RESECTION WITH COLOSTOMY & INTRAPERITONEAL CHEMO H/O total hysterectomy + REMOVAL OVARIAN CYSTECTOMY History of colonoscopy History of esophagogastroduodenoscopy (EGD) History of knee surgery LEFT PATELLA REPAIR Nausea and vomiting after administration of anesthetic agent Port-A-Cath in place (08/30/21) Insertion Access Port with Fluoroscopy(Right) - Ilan Vee DO 08/30/2021 [place] teeth removed Family History Grandmother (Maternal) Breast cancer Hypertension Grandfather (Maternal) No problems noted. 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 Seatbelt Use: always Sunscreen Use: Yes Assistive Devices: Glasses Physical Exam Physical Exam: Constitutional: well-appearing, no acute distress HEENT: NCAT, no conjunctival injection, no scleral icterus CV: regular rhythm, no murmur appreciated, extremities well-perfused, no LE edema Resp: CTABL, no wheezes/rales/rhonchi appreciated, no increased work of breathing GI: soft, nondistended, mild/moderate tenderness to palpation of the RUQ, LUQ, and epigastrium; RLQ and LLQ nontender; BS hypoactive MSK: no gross deformities appreciated Skin: abdominal ostomy site noted, no surrounding erythema, edema, exudate, or warmth to touch Neuro: alert, oriented, no focal neurologic deficit appreciated Results & Data Results & Data ([facility]) Vital Signs (Past 12 Hours) Vital Signs Temp Pulse Pulse Resp BP BP Pulse Ox 02/26/22 20:00 99 H 16 135/84 97 02/26/22 17:30 92 H 18 166/99 H 97 02/26/22 15:43 36.5 C 90 14 140/92 95 O2 Del Method 02/26/22 20:00 Room Air 02/26/22 17:30 Room Air 02/26/22 15:43 Room Air Supervising Physician Co-Signing Physician Notes Attending addendum: I have physically seen this patient, have supervised the medical residents activities, and agree with the H&P unless as otherwise noted. Assessment and Plan: Large bowel obstruction, high-grade- Proximal to colostomy, likely secondary to adhesions NPO Acetaminophen 1000 mg IV every 8 hour as needed for mild pain or fever Morphine sulfate 2 mg IV every hour as needed moderate pain Dilaudid 0.25 mg IV every 3 hours as needed for severe pain Lactated Ringer's 80 mils per hour Zofran 4 mg IV every 6 hours as needed Famotidine 20 mg IV every 12 hours NG tube placement only if symptoms not relieved by medication General surgery has been consulted by the ED and are aware, with preference to admit to medical service Remaining orders and notations as noted Resident Activity Tracking Resident Involvement: Resident Care Provided and Data Entry Analyst Coverage Note Care Provided: Adult Hospital Medicine (1) Ovarian cancer Laterality: unspecified laterality Qualified Code(s): C56.9 - Malignant neoplasm of unspecified ovary
[2022-02-26] MEDS ORDERED: PROCHLORPERAZINE 5 MG in SYRINGE 4 ML IV ONE (21:27)
[2022-02-26] MEDS ORDERED: HYDROmorphone INJ 0.5 MG/0.5 ML SYR IV STA (21:33)
[2022-02-26] MEDS ORDERED: PROCHLORPERAZINE 5 MG/ML 2 ML VIAL IV ONE (21:45)
[2022-02-26] MEDS: POTASSIUM CHLORIDE / WTR 10 MEQ/100 ML PLCT IV SCH ×2 (22:02→23:24)
[2022-02-26 22:41] LABS: Appearance Urine Clear (Clear); Bilirubin Urine Negative (Negative); Blood Urine Negative (Negative); Color Urine Yellow; Glucose Urine UA Negative (Negative); Ketones Urine Negative (Negative); Leukocyte Esterase Urine Negative (Negative); Nitrite Urine Negative (Negative); Protein Urine Negative (Negative); Specific Gravity Urine 1.008 (1.000-1.030); Urobilinogen Urine Negative (Negative)
[2022-02-26] MEDS ORDERED: ACETAMINOPHEN 1,000 MG/100 ML VIAL IV SCH (22:45)
[2022-02-26] MEDS: ACETAMINOPHEN 650 MG/65 ML VIAL IV SCH (23:15)
[2022-02-27] MEDS ORDERED: ACETAMINOPHEN 1,000 MG/100 ML VIAL IV SCH (00:43)
[2022-02-27] MEDS ORDERED: MELATONIN 3 MG TAB PO PRN (00:43)
[2022-02-27] MEDS ORDERED: LACTATED RINGER'S 1,000 ML IV SCH (00:43)
[2022-02-27] MEDS: POTASSIUM CHLORIDE / WTR 10 MEQ/100 ML PLCT IV SCH (01:01)
[2022-02-27] MEDS: FAMOTIDINE 20 MG in SYRINGE 3 ML IV SCH ×3 (01:06→20:06)
[2022-02-27] MEDS: PANTOprazole 40 MG in SYRINGE 0 ML IV SCH ×3 (01:06→20:06)
--- NOTE | 2022-02-27 01:42 | Billing Data ---
Date of Service February 27, 2022 Coding Level of Care Code 27417 Initial Inpt Care Lvl 3
[2022-02-27] MEDS: HYDROmorphone INJ 0.5 MG/0.5 ML SYR IV PRN ×2 (03:09→09:58)
[2022-02-27] MEDS: MoRPHine SULFATE 4 MG/ML 1 ML CARP\\VIAL IV PRN ×3 (04:59→11:52)
[2022-02-27] MEDS: ONDANSETRON INJ 2 MG/ML 2 ML VIAL IV PRN ×2 (05:00→09:58)
[2022-02-27] MEDS: ACETAMINOPHEN 650 MG/65 ML VIAL IV SCH ×3 (06:18→22:36)
[2022-02-27 06:59] LABS: Basophils # (auto) 0.03 K/uL (0-0.2); Basophils % (auto) 0.6 %; Eosinophils # (auto) 0.04 K/uL (0-0.50); Eosinophils % (auto) 0.7 %; Hematocrit (blood only) 32.7 % (34.1-44.9); Hemoglobin 10.4 g/dl (12.0-16.0); Immature Granulocytes # (auto) 0.01 K/uL (0.00-0.02); Immature Granulocytes % (auto) 0.2 %; Lymphocytes # (auto) 1.12 K/uL (1.2-3.4); Lymphocytes % (auto) 20.9 %; Mean Corpuscular Hemoglobin 31.5 pg (25.0-34.0); Mean Corpuscular Hgb Conc 31.8 g/dL (32.0-36.0); Mean Corpuscular Volume 99.1 fL (80.0-100.0); Mean Platelet Volume 9.4 fL (9.4-12.3); Monocytes # (auto) 0.63 K/uL (0.24-0.82); Monocytes % (auto) 11.7 %; Neutrophils # (auto) 3.54 K/uL (1.4-6.5); Neutrophils % (auto) 65.9 %; Platelet Count 204 K/uL (130-400); RDW Coefficient of Variation 15.1 % (11.5-14.5); RDW Standard Deviation 55.5 fL (36.4-46.3); White Blood Count 5.37 K/ul (4.8-10.8)
[2022-02-27 07:32] LABS: BUN Creatinine Ratio 12.1 (10-20); Calcium 8.3 mg/dl (8.5-10.1); Creatinine Clr Calc Pharmacy 74.6 ml/min; Est GFR (African American) 120.3 ml/min; Est GFR (Non-African American) 103.8 ml/min
--- NOTE | 2022-02-27 07:45 | Hospitalist Progress Note ---
Date of Service February 27, 2022 Assessment & Plan (1) Large bowel obstruction: Plan: Muriel is a 57 year old female with history of ovarian cancer, colostomy, asthma, migraines, KRISTI and MDD who was admitted 02/27 due to bowel obstruction proximal to her ostomy site. She is currently being managed for pain and nausea and is NPO. Large Bowel Obstruction w/ Low Ostomy Output, Abdominal Pain, and Nausea - CT Abd/Pelvis: indicated high grade Large Bowel Obstruction - NGT not required at this time - Continue LR at 100 ml/hr - Continue pain control at Acetaminophen for 1-6 pain and Morphine 2 mg for 7-10 pain - will modify PRN - Continue Zofran and Compazine PRN - Patient is NPO - General Surgery evaluated patient in AM - currently planning expectant management, no surgery at this time - Hgb 10.4/Hct 32.7 - will monitor via CBC CT Abdomen/Pelvis 02/26/22 1. Partial bowel resection with left lower quadrant colostomy. There is high- grade large bowel obstruction just proximal to the colostomy site which may be secondary to adhesions. 2. Limited evaluation of the patient's metastatic disease without the use of IV contrast. Omental and peritoneal lesions are better visualized on the prior studies. 3. Small to moderate likely malignant abdominopelvic ascites has progressed from prior. 4. No new or progressive lymphadenopathy identified. 5. Additional findings as above. 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 - Most recent Chemotherapy treatment 02/23/22 - Patient is s/p 6 cycles of Carbo/Paclitaxel (09/06-11/08) - Currently managed on Doxil/Mvazi (started 12/01/21) - planned 6 rounds - Dr. Crocker planning debulking surgery w/ intraperitoneal chemotherapy - Most recent f/u with Sravani Katz PA-C - Will notify oncology team if clinical picture necessitates (3) Hypokalemia: Plan: - K 3.3 on admission - Repleted with 40 mEq IV - K 4 on 02/27 - Will monitor K and Mg levels via BMP and Mg Levels (4) Asthma: Plan: - Continue home Qvar Redihaler in AM - Hold home Montelukast while pt. NPO (5) Migraine: Plan: - Hold home Topiramate held while NPO (6) GERD (gastroesophageal reflux disease): Plan: - Home Pantoprazole and Famotidine IV while NPO (7) Anxiety and depression: Plan: - Hold home Sertraline while NPO Plan FEN: NPO, LR @ 100mL/hr Code Status: Full DVT ppx: SCDs Dispo: Med/Surg Admission and Anticipated Discharge Date Admission Date: February 26, 2022 Supervising Physician Co-Signing Physician Notes I also saw the patient and confirmed francis portions of the history and exam. I agree with the impression and plan as noted in the resident documentation. 57 y/o female with history of ovarian CA admitted yesterday following a 24 hours history of minimal ostomy output combined with camping abdominal pain. This morning she notes less cramping and decreased abdominal pressure. She notes some flatus as well. EXAM 69/61, 75, 16, 36.9, 94% RA Pleasant. Cachectic appearing. Heart regular rateauscultated rate mid 70s, rhythm is regular. Respirations are nonlabored with clear lung sounds bilaterally Abdomen with positive bowel sounds; some tenderness around the ostomy site but no rebound or guarding DATA Hgb 10.4 Potassium 4 A/P Large bowel obstruction, high-grade Hypokalemia, resolved High Grade Intraepithelial carcinoma, left ovary Severe protein calorie malnutrition Continue conservative management; continue n.p.o. with IV fluids, increase rate to 100/h Will advise oncology with regards to the patient's admission Appreciate surgical consultation, may need NG tube should symptoms worsen Subjective Muriel is a 57 year old female with history of ovarian cancer, colostomy, asthma, migraines, KRISTI and MDD who was admitted 02/27 due to bowel obstruction proximal to her ostomy site. She is currently being managed for pain and nausea and is NPO. Patient prefers to avoid surgery if possible. Today: - Patient endorses abdominal pressure, but states that she is overall improved from admission - She denies abdominal pain, nausea, emesis and notes that her 'gas sounds' are improved - Ostomy output: None - Denies chest pain, shortness of breath, fevers, sweats, or urinary changes. - Patient denies any hematuria or blood loss. - Muriel expressed strong desire to ambulate when her arrives this afternoon Review of Systems Review of Systems: See HPI. Physical Exam Physical Exam: Gen: NAD, cachectic, interactive HEENT: NC/AT MMM Neck: Supple, No LAD Resp: Non-labored, no wheezing/rhonchi/rales, CTAB CV: RRR, normal S1/S2, no M/R/G Abd: firm, mildly-distended, no TTP, normoactive bowels, no masses, ostomy in LLQ without erythema or edema at stoma site Extr: Cap. Refill <2s, 2+ dp bilaterally, no LE edema Skin: Intact, no rashes/lesions/erythema Results & Data Results & Data ([facility]) Vital Signs (Past 12 Hours) Vital Signs Temp Pulse Pulse Resp BP BP Pulse Ox 02/27/22 07:19 36.9 C 75 16 96/61 L 94 02/27/22 00:40 36.8 C 88 17 154/88 H 98 02/27/22 00:42 18 127/89 02/26/22 22:00 83 16 146/79 H 93 02/26/22 20:00 99 H 16 135/84 97 O2 Del Method 02/27/22 07:19 Room Air 02/27/22 00:40 Room Air 02/27/22 00:42 Room Air 02/26/22 22:00 Room Air 02/26/22 20:00 Room Air Resident Activity Tracking Resident Involvement: Resident Care Provided Care Provided: Adult Hospital Medicine (1) Ovarian cancer Laterality: unspecified laterality Qualified Code(s): C56.9 - Malignant neoplasm of unspecified ovary
[2022-02-27] MEDS: FLUTICASONE FUROATE 100MCG 14 PUFFS/INHALER INH SCH (07:51)
[2022-02-27] MEDS: FLUTICASONE PROPIONATE NA SPR 16 GM BTL SCH ×2 (07:52→20:05)
[2022-02-27] MEDS: LACTATED RINGER'S 1,000 ML IV SCH ×2 (12:51→14:16)
[2022-02-27] MEDS: PROCHLORPERAZINE 5 MG in SYRINGE 4 ML IV PRN (13:22)
--- NOTE | 2022-02-27 13:55 | Surgery Consultation ---
Date of Consultation February 27, 2022 Assessment & Plan (1) Large bowel obstruction: pt is a 57 year-old female who was admitted to hospital for large bowel obstruction, IMP: large bowel obstruction, plan, no emergent surgery indication now, conservative treatment first, npo iv fluid, may need NG tube if pt develops nausea and vomiting, may need transfer to [facility] if failure conservative treatment, pt understood, she agrees with the plan, will F/U, Supervising Physician Co-Signing Physician Notes I also saw the patient and confirmed francis portions of the history and exam. I agree with the impression and plan as noted in the resident documentation. 57 y/o female with history of ovarian CA admitted yesterday following a 24 hours history of minimal ostomy output combined with camping abdominal pain EXAM 69/61, 75, 16, 36.9, 94% RA DATA Hgb 10.4 Potassium 4 A/P Large bowel obstruction, high-grade Hypokalemia, resolved High Grade Intraepithelial carcinoma, left ovary History of Present Illness Reason for Consultation: large bowel obstruction, Requesting Physician: Chilo Serrano DO Attending Physician: Chilo Serrano DO History of Present Illness History of Present Illness Primary Care Provider: Saida Senior MD CC: abdominal pain HPI: 57yo female with a history of ovarian cancer, colostomy placement, asthma, migraine, KRISTI, and MDD presents with a one-day history of minimal ostomy output, cramping abdominal pain, nausea, and low PO intake. Patient's last output from her stoma was about 36 hours prior. Patient has been trying to stay well- hydrated and has continued taking her scheduled percocet. Patient's abdominal pain is constant, cramping, and is centered around her stoma. Patient denies fever, chills, headache, vision changes, CP, palpitations, SOB, edema, vomiting, dysuria, hematochezia, melena, lightheadedness, dizziness, numbness, tingling, weakness, or other symptoms. Denies recent illness and recent travel. Of note, patient's last chemotherapy was last (02/23) and had a paracentesis on Sunday (02/24). Patient's ostomy was placed in June. Upon arrival, vitals were notable for slightly elevated BP. Patient was afebrile, not tachycardic or tachypneic on arrival, and spO2 was adequate on room air. Initial labs were notable for mild hyponatremia (132), mild hypokalemia (3.2), and minimally elevated alk phos (108); CBC unremarkable, no other electrolyte abnormalities, LFTs otherwise normal, lipase normal, lactate not elevated. In the ED, patient required morphine IV 12mg in total (between 17:00 and 20:00), zofran IV 12mg in total, compazine IV 5mg (x1), NSS 1L bolus (x1), and one K rider. CT abdomen/pelvis was notable for: * 1. Partial bowel resection with left lower quadrant colostomy. There is high- grade large bowel obstruction just proximal to the colostomy site which may be secondary to adhesions. * 2. Limited evaluation of the patient's metastatic disease without the use of IV contrast. Omental and peritoneal lesions are better visualized on the prior studies. * 3. Small to moderate likely malignant abdominopelvic ascites has progressed from prior. Surrogate decision-maker in case of an emergency: Tee Schultz (cell: [phone]) I ( Ponce Lu MD ) got a call for consult large bowel obstruction, I reviewed pt's H/P , labs, CT scan with pt, no stool in colostomy bag yet, no nausea and vomiting, Allergies Allergy/AdvReac Type Severity Reaction Status Date / Time doxycycline Allergy Intermediate RASH Verified 02/26/22 17:42 gluten AdvReac Intermediate Abdominal Verified 02/26/22 17:42 Pain lactose AdvReac Intermediate Abdominal Verified 02/26/22 17:42 Pain Penicillins AdvReac Intermediate Nausea, Verified 02/26/22 17:42 diarrhea Home Medications Medication Instructions Recorded Confirmed Type pantoprazole 40 mg granules 40 mg PO QAM 07/28/19 02/26/22 His tory delayed-release for susp in packet (Protonix) montelukast 10 mg tablet 10 mg PO QPM 11/05/19 02/26/22 Histor y sertraline 100 mg tablet 200 mg PO QPM 11/05/19 02/26/22 Histor y dapsone 25 mg tablet 25 mg PO BID 04/13/20 02/26/22 History famotidine 20 mg tablet 20 mg PO QAM 04/13/20 02/26/22 History cholecalciferol (vitamin D3) 50 50 mcg PO QAM 05/11/20 02/26/22 History mcg (2,000 unit) capsule fexofenadine 180 mg tablet 180 mg PO HS 05/11/20 02/26/22 Hist ory (Liana Allergy) fluticasone propionate 50 1 spray intranasal BID 05/11/20 02/26/22 Hi story mcg/actuation nasal spray,suspension (Flonase Allergy Relief) topiramate 100 mg tablet (Topamax) 100 mg PO QPM 05/11/2002/26 History beclomethasone dipropionate 40 1 inh inhalation QAM 05/12/20 02/26/22 History mcg/actuation HFA breath activated aerosol (Qvar RediHaler) fremanezumab-vfrm 225 mg/1.5 mL 225 mg subcut MONTHLY 05/12/20 History subcutaneous auto-injector (Ajovy) prochlorperazine maleate 5 mg 5 mg PO BID PRN Nausea 05/12/20 2 History tablet (Compazine) acetaminophen 325 mg tablet 325 mg PO QID PRN Pain 08/13/20 02/26/22 History (Tylenol) giqyuzcululsn-joojqckushixqbeojj-lufhyucbvoaid 1 cap PO DAILY PRN MIGRAINESA 08/13/20 02/26/22 History capsule ondansetron HCl 4 mg tablet 4 mg PO Q6H PRN Nausea 08/25/21 02/26/22 History oxycodone-acetaminophen 5 mg-325 1 tab PO TID PRN Pain, Mild 01/16/22 02/26/22 History mg tablet Past Med/Surg History Medical History Anxiety and depression Asthma LAST USED RESCUE INHALER>BEEN A WHILEBilateral tinnitus Colostomy present Environmental allergies GERD (gastroesophageal reflux disease) Gluten intolerance History of anorexia nervosa History of ileus S/P HYSTERECTOMYItching REASON FOR DAPSONELow iron HX IRON INFUSIONMigraine Ovarian cancer PRESENT DX>REASON FOR A-PORT (HAS RECIEVED 6 CYCLES OF CHEMO 1 YEAR AGO) Surgical History H/O abdominal surgery AT [facility] 07/20/21 TO REMOVE CANCER IN ABDOMEN/COLON RESECTION WITH COLOSTOMY & INTRAPERITONEAL CHEMOH/O total hysterectomy + REMOVAL OVARIAN CYSTECTOMYHistory of colonoscopy History of esophagogastroduodenoscopy (EGD) History of knee surgery LEFT PATELLA REPAIRNausea and vomiting after administration of anesthetic agent Port-A-Cath in place (08/30/21) Insertion Access Port with Fluoroscopy(Right) - Ilan Vee DO 08/30/2021 [place] teeth removed Family History Grandmother (Maternal) Breast cancer HypertensionGrandfather (Maternal) No problems noted. 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 Seatbelt Use: always Sunscreen Use: Yes Assistive Devices: Glasses Allergies Allergy/AdvReac Type Severity Reaction Status Date / Time doxycycline Allergy Intermediate RASH Verified 02/26/22 17:42 gluten AdvReac Intermediate Abdominal Verified 02/26/22 17:42 Pain lactose AdvReac Intermediate Abdominal Verified 02/26/22 17:42 Pain Penicillins AdvReac Intermediate Nausea, Verified 02/26/22 17:42 diarrhea Home Medications Medication Instructions Recorded Confirmed Type pantoprazole 40 mg granules 40 mg PO QAM 07/28/19 02/26/22 History delayed-release for susp in packet (Protonix) montelukast 10 mg tablet 10 mg PO QPM 11/05/19 02/26/22 History sertraline 100 mg tablet 200 mg PO QPM 11/05/19 02/26/22 History dapsone 25 mg tablet 25 mg PO BID 04/13/20 02/26/22 History famotidine 20 mg tablet 20 mg PO QAM 04/13/20 02/26/22 History cholecalciferol (vitamin D3) 50 50 mcg PO QAM 05/11/20 02/26/22 History mcg (2,000 unit) capsule fexofenadine 180 mg tablet 180 mg PO HS 05/11/20 02/26/22 History (Liana Allergy) fluticasone propionate 50 1 spray intranasal BID 05/11/20 02/26/22 History mcg/actuation nasal spray,suspension (Flonase Allergy Relief) topiramate 100 mg tablet (Topamax) 100 mg PO QPM 05/11/20 02/26/22 History beclomethasone dipropionate 40 1 inh inhalation QAM 05/12/20 02/26/22 History mcg/actuation HFA breath activated aerosol (Qvar RediHaler) fremanezumab-vfrm 225 mg/1.5 mL 225 mg subcut MONTHLY 05/12/20 02/26/22 History subcutaneous auto-injector (Ajovy) prochlorperazine maleate 5 mg 5 mg PO BID PRN Nausea 05/12/20 02/26/22 History tablet (Compazine) acetaminophen 325 mg tablet 325 mg PO QID PRN Pain 08/13/20 02/26/22 History (Tylenol) jgcmjvutwijnr-lplkijctiaplqzcvze-houakuaxuqebc 1 cap PO DAILY PRN MIGRAINES 08/13/20 02/26/22 History capsule ondansetron HCl 4 mg tablet 4 mg PO Q6H PRN Nausea 08/25/21 02/26/22 History oxycodone-acetaminophen 5 mg-325 1 tab PO TID PRN Pain, Mild 01/16/22 02/26/22 History mg tablet Patient History Medical History Anxiety and depression Asthma LAST USED RESCUE INHALER>BEEN A WHILE Bilateral tinnitus Colostomy present Environmental allergies GERD (gastroesophageal reflux disease) Gluten intolerance History of anorexia nervosa History of ileus S/P HYSTERECTOMY Itching REASON FOR DAPSONE Low iron HX IRON INFUSION Migraine Ovarian cancer PRESENT DX>REASON FOR A-PORT (HAS RECIEVED 6 CYCLES OF CHEMO 1 YEAR AGO) Surgical History H/O abdominal surgery AT [facility] 07/20/21 TO REMOVE CANCER IN ABDOMEN/COLON RESECTION WITH COLOSTOMY & INTRAPERITONEAL CHEMO H/O total hysterectomy + REMOVAL OVARIAN CYSTECTOMY History of colonoscopy History of esophagogastroduodenoscopy (EGD) History of knee surgery LEFT PATELLA REPAIR Nausea and vomiting after administration of anesthetic agent Port-A-Cath in place (08/30/21) Insertion Access Port with Fluoroscopy(Right) - Ilan Vee DO 08/30/2021 [place] teeth removed Family History Grandmother (Maternal) Breast cancer Hypertension Grandfather (Maternal) No problems noted. Father Hearing loss Mother Hearing loss Allergies Asthma Sister Allergies Asthma Other No family history of adverse response to anesthesia No family history of bleeding disorder Denies family history of Heart disease Cancer Stroke Social History Smoking Status: Never smoker Second Hand Exposure: No; Do You Dip or Chew Tobacco: No; Hx Alcohol Use: No Hx Substance Use: No Preferred Language: Maori Communication Ability: Effective Visual Impairment: Partially Limited Press Writer Required: No Beliefs That Will Affect Care: None marital status: Current Living Situation: Spouse current occupational status: employed 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 Seatbelt Use: always Sunscreen Use: Yes Assistive Devices: None Review of Systems Constitutional: as per Subjective / HPI Eyes: as per Subjective / HPI Respiratory: as per Subjective / HPI Cardiovascular: as per Subjective / HPI Gastrointestinal: bowel resection colostomy, Genitourinary: ovary cancer surgery, Neurologic: as per Subjective / HPI Psychiatric: as per Subjective / HPI Endocrine: as per Subjective / HPI Hematologic / Lymphatic: as per Subjective / HPI Physical Exam 2 Constitutional: WD/WN, vitals as above Eyes: PERRL, conjunctivae normal, anicteric sclerae Neck: trachea midline, no thyromegaly Respiratory: normal respiratory effort, lungs clear to auscultation Cardiovascular: RRR, no murmur, no edema Gastrointestinal (Abdomen): soft, no distend, no stool in colostomy Bag, BS +, middle line scar, Musculoskeletal: no cyanosis or clubbing, extremities motor strength 5/5 Neurologic: patellar DTR's 2+ bilat, sensation intact Psychiatric: A+Ox3, euthymic affect Results & Data ([facility]) Vital Signs (Past 12 Hours) Vital Signs Temp Pulse Resp BP Pulse Ox O2 Del Method 02/27/22 07:19 36.9 C 75 16 96/61 L 94 Room Air Laboratory Results Abnormal lab results 02/26/22 02/26/22 02/26/22 Range/Units 16:17 16:17 16:42 RBC (3.93-5.22) M/uL Hgb (12.0-16.0) g/dl Hct (34.1-44.9) % MCHC (32.0-36.0) g/dL RDW Std Deviation 54.4 H (36.4-46.3) fL RDW Coeff of Risa 15.3 H (11.5-14.5) % Lymph # (Auto) 1.11 L (1.2-3.4) K/uL Sodium 132 L (136-145) mmol/L Potassium 3.2 L (3.5-5.1) mmol/L Creatinine (0.6-1.2) mg/dl Glucose (70-99(Fasting)) mg/dl Calcium (8.5-10.1) mg/dl Alkaline Phosphatase 108 H (34-104) U/L Lipase 3 L (11-82) U/L 02/27/22 02/27/22 Range/Units 06:50 06:50 RBC 3.30 L (3.93-5.22) M/uL Hgb 10.4 L (12.0-16.0) g/dl Hct 32.7 L (34.1-44.9) % MCHC 31.8 L (32.0-36.0) g/dL RDW Std Deviation 55.5 H (36.4-46.3) fL RDW Coeff of Risa 15.1 H (11.5-14.5) % Lymph # (Auto) 1.12 L (1.2-3.4) K/uL Sodium (136-145) mmol/L Potassium (3.5-5.1) mmol/L Creatinine 0.58 L (0.6-1.2) mg/dl Glucose 100 H (70-99(Fasting)) mg/dl Calcium 8.3 L (8.5-10.1) mg/dl Alkaline Phosphatase (34-104) U/L Lipase (11-82) U/L Diagnostic Findings ABDOMEN AND PELVIS CT WITH ORAL CONTRAST CT DOSE: 255.00 mGy.cm HISTORY: Acute generalized abdominal pain with abdominal distention . History of ovarian carcinoma with omental, mesenteric pelvic metastasis. Abd dist, ?obstruction, no output from ostomy TECHNIQUE: Multiaxial CT images of the abdomen and pelvis were performed following the use of oral contrast. A dose lowering technique was utilized adhering to the principles of ALARA. COMPARISON STUDY: 06/27/2021 FINDINGS: Imaged inferior cardiac chambers are unremarkable. Trace pleural effusions. Clear lung bases. No pneumatosis or pneumoperitoneum. The study is limited without the use of IV contrast. The spleen is mildly enlarged, 14.4 cm in length. Unremarkable pancreas and visualized adrenal glands. Unremarkable gallbladder. Unremarkable liver. Mild bilateral pelvocaliectasis. Mild urinary bladder distention. No abdominal aortic aneurysm. No new or progressive lymphadenopathy identified. The previously described left iliac chain adenopathy appears to have decreased in size from prior. Hysterectomy. Omental and peritoneal disease is suboptimally evaluated without the use of IV contrast. Small to moderate abdominal pelvic ascites has progressed from the prior study. Cystic structure posterior to the right hepatic lobe measuring 5.5 cm is suggestive of loculated ascites. Distended contrast filled stomach. Postoperative changes of the large and small bowel from partial bowel resection. There are several contrast filled dilated loops of small bowel measuring up to approximately 4.6 cm transversely. Distended fluid and stool-filled loops of large bowel measure up to 7.8 cm. There is high-grade obstruction with focal narrowing just proximal to the left lower quadrant ostomy site on image 232. Unremarkable soft tissues. No acute fracture. IMPRESSION: 1. Partial bowel resection with left lower quadrant colostomy. There is high- grade large bowel obstruction just proximal to the colostomy site which may be secondary to adhesions. 2. Limited evaluation of the patient's metastatic disease without the use of IV contrast. Omental and peritoneal lesions are better visualized on the prior studies. 3. Small to moderate likely malignant abdominopelvic ascites has progressed from prior. 4. No new or progressive lymphadenopathy identified. 5. Additional findings as above.
[2022-02-27] MEDS ORDERED: MoRPHine SULFATE 2 MG/ML CARP IV PRN (16:00)
[2022-02-28] MEDS: LACTATED RINGER'S 1,000 ML IV SCH ×3 (00:12→21:11)
[2022-02-28] MEDS: ACETAMINOPHEN 650 MG/65 ML VIAL IV SCH ×2 (06:11→15:00)
[2022-02-28 06:47] LABS: Hematocrit (blood only) 31.2 % (34.1-44.9); Hemoglobin 10.1 g/dl (12.0-16.0); Mean Corpuscular Hgb Conc 32.4 g/dL (32.0-36.0); Mean Corpuscular Volume 98.7 fL (80.0-100.0); Mean Platelet Volume 9.9 fL (9.4-12.3); Platelet Count 193 K/uL (130-400); RDW Coefficient of Variation 14.7 % (11.5-14.5); RDW Standard Deviation 53.7 fL (36.4-46.3); Red Blood Count 3.16 M/uL (3.93-5.22); White Blood Count 3.21 K/ul (4.8-10.8)
[2022-02-28 07:08] LABS: BUN Creatinine Ratio 13.2 (10-20); Calcium 8.5 mg/dl (8.5-10.1); Creatinine Clr Calc Pharmacy 81.6 ml/min; Est GFR (African American) 123.9 ml/min; Est GFR (Non-African American) 106.9 ml/min; Magnesium 1.7 mg/dl (1.7-2.4); Potassium 3.8 mmol/L (3.5-5.1)
[2022-02-28] MEDS: FLUTICASONE PROPIONATE NA SPR 16 GM BTL SCH ×2 (08:49→20:04)
[2022-02-28] MEDS: FAMOTIDINE 20 MG in SYRINGE 3 ML IV SCH ×2 (08:49→20:04)
[2022-02-28] MEDS: FLUTICASONE FUROATE 100MCG 14 PUFFS/INHALER INH SCH (08:49)
[2022-02-28] MEDS: PANTOprazole 40 MG in SYRINGE 0 ML IV SCH ×2 (08:50→20:04)
--- NOTE | 2022-02-28 09:48 | Hospitalist Progress Note ---
Date of Service February 28, 2022 Assessment & Plan (1) Large bowel obstruction: Plan: Muriel is a 57 year old female with history of ovarian cancer, colostomy, asthma, migraines, KRISTI and MDD who was admitted 02/27 due to bowel obstruction proximal to her ostomy site. She is currently being managed for pain and nausea, doing well on clear liquid diet. Large Bowel Obstruction w/ Low Ostomy Output, Abdominal Pain, and Nausea - CT Abd/Pelvis: indicated high grade Large Bowel Obstruction just proximal to ostomy site likely 2/2 adhesions - NGT not required at this time - Decreased LR at 80 ml/hr as patient is drinking liquids. 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 - Most recent Chemotherapy treatment 02/23/22, she has another treatment scheduled next week - Patient is s/p 6 cycles of Carbo/Paclitaxel (09/06-11/08) - Currently managed on Doxil/Mvazi (started 12/01/21) - planned 6 rounds - Dr. Crocker planning debulking surgery w/ intraperitoneal chemotherapy - Most recent f/u with Sravani Katz PA-C - Will notify oncology team if clinical picture necessitates (3) Hypokalemia: Plan: - K 3.3 on admission, repleted to 4 on 02/27, currently 3.8 - Will monitor K and Mg levels via BMP and Mg Levels (4) Asthma: Plan: - Continue home Qvar Redihaler in AM - Hold home Montelukast while pt. advancing diet (5) Migraine: Plan: - Hold home Topiramate held while advancing diet (6) GERD (gastroesophageal reflux disease): Plan: - Home Pantoprazole and Famotidine IV (7) Anxiety and depression: Plan: - Hold home Sertraline while advancing diet Plan Fluids: LR @ 80 mL/hr Code Status: Full Diet: Full Liquid DVT ppx: SCDs/Ambulation Dispo: Med/Surg Admission and Anticipated Discharge Date Admission Date: February 26, 2022 Supervising Physician Co-Signing Physician Notes I also saw the patient and confirmed francis portions of the history and exam. I agree with the impression and plan as noted in the resident documentation. She continues to feel better. She notes increased gas. She has increased stool in her ostomy. She describes fasting a few larger clumps of stool, then returning to her usual liquid stool. EXAM 128/78, 85, 20, 36.8, 90% room air Pleasant. Heart regular Respirations are nonlabored wit Abdomen with positive bowel sounds; Minimal tenderness around the ostomy site but no rebound or guarding DATA Hemoglobin 10.1, platelet count 193, WBC 3.21 BUN 7, creatinine 0.53 Potassium 3.8 A/P Large bowel obstruction, high-grade Hypokalemia, resolved High Grade Intraepithelial carcinoma, left ovary Severe protein calorie malnutrition Slowly improving with conservative management Clear diet for breakfast and lunch, consider full liquids for dinner if continues to improve Subjective Muriel is a 57 year old female with history of ovarian cancer, colostomy, asthma, migraines, KRISTI and MDD who was admitted 02/27 due to bowel obstruction proximal to her ostomy site. She is currently being managed for pain and nausea and has been advanced to full liquid diet. Today 02/28/22: - Today patient states that she is feeling significantly improved, she denies any abdominal pressure. - She denies abdominal pain, nausea, emesis and notes that her 'gas sounds' are increasing - Ostomy output: Episode last evening 1700 of a hard ball followed by loose stool, continued output throughout night into today - Denies chest pain, shortness of breath, fevers, sweats, or urinary changes. - Patient denies any hematuria or blood loss. - Patient enjoyed ambulating with her yesterday afternoon and plans to continue today. Review of Systems Review of Systems: See HPI. Physical Exam Physical Exam: Gen: NAD, cachectic, interactive HEENT: NC/AT MMM Neck: Supple, No LAD Resp: Non-labored, no wheezing/rhonchi/rales, CTAB CV: RRR, normal S1/S2, no M/R/G Abd: softened, mildly-distended, no TTP, normoactive bowels, no masses, ostomy in LLQ without erythema or edema at stoma site, small amount of stool in bag Extr: Cap. Refill <2s, 2+ dp bilaterally, no LE edema Skin: Intact, no rashes/lesions/erythema Results & Data Results & Data ([facility]) Vital Signs (Past 12 Hours) Vital Signs Temp Pulse Resp BP Pulse Ox O2 Del Method 02/28/22 07:30 36.1 C L 76 16 119/79 98 02/28/22 07:28 36.5 C 87 14 117/71 99 Room Air 02/28/22 00:13 37.2 C 82 18 120/79 99 Room Air Resident Activity Tracking Resident Involvement: Resident Care Provided Care Provided: Adult Hospital Medicine (1) Ovarian cancer Laterality: unspecified laterality Qualified Code(s): C56.9 - Malignant neoplasm of unspecified ovary
--- NOTE | 2022-02-28 14:01 | Surgery Progress Note ---
Date of Service February 28, 2022 Assessment & Plan (1) Large bowel obstruction: Plan: pt is a 57 year-old female who was admitted to hospital for large bowel obstruction, IMP: large bowel obstruction, plan, no emergent surgery indication now, conservative treatment first, npo iv fluid, may need NG tube if pt develops nausea and vomiting, may need transfer to [facility] if failure conservative treatment, pt understood, she agrees with the plan, will F/U, 02/28/2022, 1:59PM Dr. Lu F/U SBO, doing better , passed BM, no abdominal pain, clear diet, will F/U, Admission and Anticipated Discharge Date Admission Date: February 26, 2022 Supervising Physician Co-Signing Physician Notes I also saw the patient and confirmed francis portions of the history and exam. I agree with the impression and plan as noted in the resident documentation. 57 y/o female with history of ovarian CA admitted yesterday following a 24 hours history of minimal ostomy output combined with camping abdominal pain. This morning she notes less cramping and decreased abdominal pressure. She notes some flatus as well. EXAM 69/61, 75, 16, 36.9, 94% RA Pleasant. Cachectic appearing. Heart regular rateauscultated rate mid 70s, rhythm is regular. Respirations are nonlabored with clear lung sounds bilaterally Abdomen with positive bowel sounds; some tenderness around the ostomy site but no rebound or guarding DATA Hgb 10.4 Potassium 4 A/P Large bowel obstruction, high-grade Hypokalemia, resolved High Grade Intraepithelial carcinoma, left ovary Severe protein calorie malnutrition Continue conservative management; continue n.p.o. with IV fluids, increase rate to 100/h Will advise oncology with regards to the patient's admission Appreciate surgical consultation, may need NG tube should symptoms worsen Subjective Muriel is a 57 year old female with history of ovarian cancer, colostomy, asthma, migraines, KRISTI and MDD who was admitted 02/27 due to bowel obstruction proximal to her ostomy site. She is currently being managed for pain and nausea and is NPO. Patient prefers to avoid surgery if possible. Today: - Patient endorses abdominal pressure, but states that she is overall improved from admission - She denies abdominal pain, nausea, emesis and notes that her 'gas sounds' are improved - Ostomy output: None - Denies chest pain, shortness of breath, fevers, sweats, or urinary changes. - Patient denies any hematuria or blood loss. - Muriel expressed strong desire to ambulate when her arrives this afternoon 02/28/2022, 1:58PM, Dr. Lu F/U SBO, doing better, passed BM, no abdominal pain, Review of Systems Constitutional: as per Subjective / HPI Eyes: as per Subjective / HPI Respiratory: as per Subjective / HPI Cardiovascular: as per Subjective / HPI Gastrointestinal: bowel resection colostomy, Genitourinary: ovary cancer surgery, Neurologic: as per Subjective / HPI Psychiatric: as per Subjective / HPI Endocrine: as per Subjective / HPI Hematologic / Lymphatic: as per Subjective / HPI Physical Exam Constitutional: WD/WN, vitals as above Eyes: PERRL, conjunctivae normal, anicteric sclerae Neck: trachea midline, no thyromegaly Respiratory: normal respiratory effort, lungs clear to auscultation Cardiovascular: RRR, no murmur, no edema Gastrointestinal (Abdomen): soft, NT, ND, BS + Musculoskeletal: no cyanosis or clubbing, extremities motor strength 5/5 Neurologic: patellar DTR's 2+ bilat, sensation intact Psychiatric: A+Ox3, euthymic affect Results & Data ([facility]) Vital Signs (Past 12 Hours) Vital Signs Temp Pulse Resp BP Pulse Ox O2 Del Method 02/28/22 07:30 36.1 C L 76 16 119/79 98 02/28/22 07:28 36.5 C 87 14 117/71 99 Room Air
[2022-02-28] MEDS: ONDANSETRON INJ 2 MG/ML 2 ML VIAL IV PRN ×2 (14:50→20:04)
[2022-02-28] MEDS ORDERED: ACETAMINOPHEN 325 MG TAB PO PRN (15:29)
[2022-02-28] MEDS: PROCHLORPERAZINE 5 MG in SYRINGE 4 ML IV PRN (21:11)
[2022-02-28] MEDS: MoRPHine SULFATE 2 MG/ML CARP IV PRN (21:15)
[2022-02-28] MEDS: SIMETHICONE 80 MG CHEW PO PRN (21:39)
[2022-02-28] MEDS ORDERED: HYDROmorphone INJ 0.5 MG/0.5 ML SYR IV STA (22:32)
[2022-03-01] MEDS: MoRPHine SULFATE 2 MG/ML CARP IV PRN (01:28)
[2022-03-01] MEDS: ONDANSETRON INJ 2 MG/ML 2 ML VIAL IV PRN ×3 (02:38→20:01)
[2022-03-01] MEDS: SIMETHICONE 80 MG CHEW PO PRN (05:07)
[2022-03-01 06:15] LABS: Hematocrit (blood only) 30.9 % (34.1-44.9); Hemoglobin 9.9 g/dl (12.0-16.0); Mean Corpuscular Hemoglobin 31.2 pg (25.0-34.0); Mean Corpuscular Volume 97.5 fL (80.0-100.0); Mean Platelet Volume 9.4 fL (9.4-12.3); Platelet Count 220 K/uL (130-400); RDW Coefficient of Variation 14.7 % (11.5-14.5); RDW Standard Deviation 53.1 fL (36.4-46.3); Red Blood Count 3.17 M/uL (3.93-5.22); White Blood Count 5.17 K/ul (4.8-10.8)
[2022-03-01 06:37] LABS: BUN Creatinine Ratio 9.6 (10-20); Calcium 8.3 mg/dl (8.5-10.1); Creatinine Clr Calc Pharmacy 83.2 ml/min; Est GFR (African American) 124.7 ml/min; Est GFR (Non-African American) 107.6 ml/min; Magnesium 1.4 mg/dl (1.7-2.4); Potassium 3.5 mmol/L (3.5-5.1)
[2022-03-01] MEDS: FLUTICASONE PROPIONATE NA SPR 16 GM BTL SCH ×2 (08:08→20:04)
[2022-03-01] MEDS: FLUTICASONE FUROATE 100MCG 14 PUFFS/INHALER INH SCH (08:08)
[2022-03-01] MEDS: PANTOprazole 40 MG in SYRINGE 0 ML IV SCH ×2 (08:09→20:00)
[2022-03-01] MEDS: LACTATED RINGER'S 1,000 ML IV SCH (08:19)
--- NOTE | 2022-03-01 08:25 | Hospitalist Progress Note ---
Date of Service March 01, 2022 Assessment & Plan (1) Large bowel obstruction: Plan: Muriel is a 57 year old female with history of ovarian cancer, colostomy, asthma, migraines, KRISTI and MDD who was admitted 02/27 due to bowel obstruction proximal to her ostomy site. She is currently being managed for pain and nausea, doing well on clear liquid diet. Large Bowel Obstruction w/ Low Ostomy Output, Abdominal Pain, and Nausea - Clinical worsening of patient's symptoms and physical exam, KUB performed showing no evidence of bowel obstruction. - Planning NPO through tomorrow AM - if symptoms worsen, will advance to NG Tube placement - Patient is receiving D5 w/ LR @ 100/hr - Continue pain control at Acetaminophen IV for 1-6 pain and Morphine 2 mg IV for 7-10 pain - will modify PRN - Continue Zofran and Compazine PRN for nausea - General Surgery following - Hgb 9.9/Hct 30.9 - will monitor via CBC KUB 03/01/22 - Gaseous distention of the stomach without evidence of bowel obstruction. 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 - Most recent Chemotherapy treatment 02/23/22, she has another treatment scheduled next week - Patient is s/p 6 cycles of Carbo/Paclitaxel (09/06-11/08) - Currently managed on Doxil/Mvazi (started 12/01/21) - planned 6 rounds - Dr. Crocker planning debulking surgery w/ intraperitoneal chemotherapy - Most recent f/u with Sravani Katz PA-C - Will notify oncology team if clinical picture necessitates (3) Hypokalemia: Plan: - K 3.3 on admission, repleted to 4 on 02/27, currently 3.5 03/01 - Mg levels 1.4 on 03/01 repleted with 3g of Magnesium Sulfate over 6 hours (1g every 2 hours) - Will monitor K and Mg levels via BMP and Mg Levels (4) Asthma: Plan: - Continue home Qvar Redihaler in AM - Hold home Montelukast while pt. NPO (5) Migraine: Plan: - Hold home Topiramate held while NPO (6) GERD (gastroesophageal reflux disease): Plan: - Home Pantoprazole and Famotidine IV (7) Anxiety and depression: Plan: - Hold home Sertraline while NPO - Started patient's home dose of Ativan 0.5 mg for anxiety symptoms Plan Fluids: D5 LR @ 100 mL/hr Code Status: Full Diet: NPO DVT ppx: SCDs/Ambulation Dispo: Med/Surg Admission and Anticipated Discharge Date Admission Date: February 26, 2022 Supervising Physician Co-Signing Physician Notes I also saw the patient and confirmed francis portions of the history and exam. I agree with the impression and plan as noted in the resident documentation. Unfortunately she feels worse this morning. Increased upper gastrointestinal gas and pressure; decreased ostomy output. EXAM 122/78, 98, 16, 37 C, 90% room air Pleasant. Heart regular Respirations are nonlabored DATA Hemoglobin 9.9 BUN 5, creatinine 0.52 Potassium 3.5 A/P Large bowel obstruction, high-grade Hypokalemia, resolved High Grade Intraepithelial carcinoma, left ovary Severe protein calorie malnutrition NPO Check KUB this morning NG tube if there is obstruction or if symptoms continue Additional per resident documentation Subjective Muriel is a 57 year old female with history of ovarian cancer, colostomy, asthma, migraines, KRISTI and MDD who was admitted 02/27 due to bowel obstruction proximal to her ostomy site. She is currently being managed for pain and nausea. Today 03/01/22: - Nursing reported worsening of sx overnight - decreased ostomy output and that patient had only been sipping fluid, nursing noted that she had only a few bites of her full liquid dinner, all other input has been clear liquids (pt. was advanced to full liquids 02/28) - Patient notes that around 3 PM yesterday she began to notice increasing abdominal pressures, gaseousness, and burping around 9 PM she noticed that her ostomy output diminished and her abdomen was becoming distended. She notes increased nausea overnight with only small outputs of hard stools since 9PM. - She denies any fevers, changes in urination, worsening back or flank pain, or emesis. - Patient notes a strong aversion to eating d/t her symptoms - Patient has continued to ambulate without difficulty Review of Systems Review of Systems: See HPI. Physical Exam Physical Exam: Gen: NAD, cachectic, uncomfortable HEENT: NC/AT, MMM Neck: Supple, No LAD Resp: Non-labored, no wheezing/rhonchi/rales, CTAB CV: RRR, normal S1/S2, no M/R/G Abd: 0800 firm, moderately distended, moderate TTP, normoactive bowels, no masses, ostomy in LLQ without erythema or edema at stoma site, no amount of stool in bag, 1600 softened, mildly distended, no TTP, normoactive bowels, no masses, ostomy in LLQ without erythema or edema at stoma site, no amount of stool in bag Extr: Cap. Refill <2s, 2+ dp bilaterally, no LE edema Skin: Intact, no rashes/lesions/erythema Results & Data Results & Data ([facility]) Vital Signs (Past 12 Hours) Vital Signs Temp Pulse Resp BP BP Pulse Ox O2 Del Method 03/01/22 06:18 37.0 C 97 H 16 140/90 98 Room Air 02/28/22 22:08 36.7 C 91 H 18 126/76 99 Room Air Resident Activity Tracking Resident Involvement: Resident Care Provided Care Provided: Adult Hospital Medicine (1) Ovarian cancer Laterality: unspecified laterality Qualified Code(s): C56.9 - Malignant neoplasm of unspecified ovary
[2022-03-01] MEDS: FAMOTIDINE 20 MG in SYRINGE 3 ML IV SCH ×2 (09:26→20:01)
[2022-03-01] MEDS ORDERED: ACETAMINOPHEN 1000 MG/100 ML IV IV PRN (09:30)
[2022-03-01] MEDS: LORazepam 0.5 MG in SYRINGE 0.25 ML IV PRN ×2 (11:09→20:03)
--- NOTE | 2022-03-01 11:16 | XRay Report ---
XR KUB/Abdomen 1 view CLINICAL HISTORY: Abdominal Distension/pain TECHNIQUE: 1 view of the abdomen was obtained. Comparison: None available at the time of this dictation. FINDINGS: Lung bases are unremarkable. The osseous structures are grossly unremarkable. Large gas bubble in the bilateral quadrant is favored to represent the stomach. A moderate amount of stool is noted within t he large bowel. IMPRESSION: Gaseous distention of the stomach without evidence of bowel obstruction. ACT 112: Negative or not required by law. Electronically signed by: Jeff Jordan M.D. 03/01/2022 11:14 AM
[2022-03-01] MEDS: D5W AND LACTATED RINGERS 1,000 ML IV SCH ×2 (11:36→20:04)
[2022-03-01] MEDS: PROCHLORPERAZINE 5 MG in SYRINGE 4 ML IV PRN (11:36)
[2022-03-01] MEDS: MAGNESIUM SULFATE / D5W 1 GM/100 ML BAG IV SCH ×3 (12:34→16:51)
--- NOTE | 2022-03-01 19:07 | Surgery Progress Note ---
Date of Service March 01, 2022 Assessment & Plan (1) Large bowel obstruction: Plan: pt is a 57 year-old female who was admitted to hospital for large bowel obstruction, IMP: large bowel obstruction, plan, no emergent surgery indication now, conservative treatment first, npo iv fluid, may need NG tube if pt develops nausea and vomiting, may need transfer to [facility] if failure conservative treatment, pt understood, she agrees with the plan, will F/U, 02/28/2022, 1:59PM Dr. Aly Clark SBO, doing better , passed BM, no abdominal pain, clear diet, will F/U, 03/01/2022 7: 08PM Dr. Aly MCKENNAO, may start clear diet tomorrow, miralax tomorrow, will F/U, Admission and Anticipated Discharge Date Admission Date: February 26, 2022 Supervising Physician Co-Signing Physician Notes I also saw the patient and confirmed francis portions of the history and exam. I agree with the impression and plan as noted in the resident documentation. Unfortunately she feels worse this morning. Increased upper gastrointestinal gas and pressure; decreased ostomy output. EXAM 122/78, 98, 16, 37 C, 90% room air Pleasant. Heart regular Respirations are nonlabored DATA Hemoglobin 9.9 BUN 5, creatinine 0.52 Potassium 3.5 A/P Large bowel obstruction, high-grade Hypokalemia, resolved High Grade Intraepithelial carcinoma, left ovary Severe protein calorie malnutrition NPO Check KUB this morning NG tube if there is obstruction or if symptoms continue Additional per resident documentation Subjective Muriel is a 57 year old female with history of ovarian cancer, colostomy, asthma, migraines, KRISTI and MDD who was admitted 02/27 due to bowel obstruction proximal to her ostomy site. She is currently being managed for pain and nausea. Today 03/01/22: - Nursing reported worsening of sx overnight - decreased ostomy output and that patient had only been sipping fluid, nursing noted that she had only a few bites of her full liquid dinner, all other input has been clear liquids (pt. was advanced to full liquids 02/28) - Patient notes that around 3 PM yesterday she began to notice increasing abdominal pressures, gaseousness, and burping around 9 PM she noticed that her ostomy output diminished and her abdomen was becoming distended. She notes increased nausea overnight with only small outputs of hard stools since 9PM. - She denies any fevers, changes in urination, worsening back or flank pain, or emesis. - Patient notes a strong aversion to eating d/t her symptoms - Patient has continued to ambulate without difficulty 03/01/2022 7: 06PM, Dr. Lu F/U SBO, pt is stable, no nausea, no vomiting,not pass gas or stool , KUB today- XR KUB/Abdomen 1 view CLINICAL HISTORY: Abdominal Distension/pain TECHNIQUE: 1 view of the abdomen was obtained. Comparison: None available at the time of this dictation. FINDINGS: Lung bases are unremarkable. The osseous structures are grossly unremarkable. Large gas bubble in the bilateral quadrant is favored to represent the stomach. A moderate amount of stool is noted within the large bowel. IMPRESSION: Gaseous distention of the stomach without evidence of bowel obstruction. Review of Systems Constitutional: as per Subjective / HPI Eyes: as per Subjective / HPI Respiratory: as per Subjective / HPI Cardiovascular: as per Subjective / HPI Gastrointestinal: bowel resection colostomy, Genitourinary: ovary cancer surgery, Neurologic: as per Subjective / HPI Psychiatric: as per Subjective / HPI Endocrine: as per Subjective / HPI Hematologic / Lymphatic: as per Subjective / HPI Physical Exam Constitutional: WD/WN, vitals as above Eyes: PERRL, conjunctivae normal, anicteric sclerae Neck: trachea midline, no thyromegaly Respiratory: normal respiratory effort, lungs clear to auscultation Cardiovascular: RRR, no murmur, no edema Gastrointestinal (Abdomen): soft, NT, ND, BS + Musculoskeletal: no cyanosis or clubbing, extremities motor strength 5/5 Neurologic: patellar DTR's 2+ bilat, sensation intact Psychiatric: A+Ox3, euthymic affect Results & Data ([facility]) Vital Signs (Past 12 Hours) Vital Signs Temp Pulse Resp BP Pulse Ox O2 Del Method 03/01/22 14:41 37 C 98 H 16 122/78 98 Room Air Laboratory Results Abnormal lab results 03/01/22 03/01/22 Range/Units 05:53 05:53 RBC 3.17 L (3.93-5.22) M/uL Hgb 9.9 L (12.0-16.0) g/dl Hct 30.9 L (34.1-44.9) % RDW Std Deviation 53.1 H (36.4-46.3) fL RDW Coeff of Risa 14.7 H (11.5-14.5) % BUN 5 L (6-23) mg/dl Creatinine 0.52 L (0.6-1.2) mg/dl BUN/Creatinine Ratio 9.6 L (10-20) Calcium 8.3 L (8.5-10.1) mg/dl Magnesium 1.4 L (1.7-2.4) mg/dl
[2022-03-02] MEDS ORDERED: HEPARIN 100 UNIT/ML 5ML FLUSH FLUSH PRN (05:24)
[2022-03-02] MEDS: D5W AND LACTATED RINGERS 1,000 ML IV SCH ×2 (05:43→14:57)
[2022-03-02 06:18] LABS: Hematocrit (blood only) 29.7 % (34.1-44.9); Hemoglobin 9.6 g/dl (12.0-16.0); Mean Corpuscular Hemoglobin 31.3 pg (25.0-34.0); Mean Corpuscular Hgb Conc 32.3 g/dL (32.0-36.0); Mean Corpuscular Volume 96.7 fL (80.0-100.0); Mean Platelet Volume 9.3 fL (9.4-12.3); Platelet Count 228 K/uL (130-400); RDW Coefficient of Variation 14.7 % (11.5-14.5); RDW Standard Deviation 52.2 fL (36.4-46.3); Red Blood Count 3.07 M/uL (3.93-5.22); White Blood Count 3.82 K/ul (4.8-10.8)
[2022-03-02 06:45] LABS: BUN Creatinine Ratio 7.7 (10-20); Calcium 7.9 mg/dl (8.5-10.1); Creatinine Clr Calc Pharmacy 83.2 ml/min; Est GFR (African American) 124.7 ml/min; Est GFR (Non-African American) 107.6 ml/min; Magnesium 1.9 mg/dl (1.7-2.4); Potassium 3.3 mmol/L (3.5-5.1)
[2022-03-02] MEDS: ONDANSETRON INJ 2 MG/ML 2 ML VIAL IV PRN ×2 (07:34→16:04)
[2022-03-02] MEDS: POTASSIUM CHLORIDE / WTR 10 MEQ/100 ML PLCT IV SCH ×4 (07:37→11:32)
--- NOTE | 2022-03-02 08:28 | Hospitalist Progress Note ---
Date of Service March 02, 2022 Assessment & Plan (1) Large bowel obstruction: Plan: Muriel is a 57 year old female with history of ovarian cancer, colostomy, asthma, migraines, KRISTI and MDD who was admitted 02/27 due to bowel obstruction proximal to her ostomy site. She is currently being managed for pain and nausea, doing well on clear liquid diet. Large Bowel Obstruction w/ Low Ostomy Output, Abdominal Pain, and Nausea - Clinical improvement of patient's symptoms and physical exam - Patient to resume clear liquid diet at 1200, will continue full liquids for 24 hours and advance as tollerated. - Patient is receiving D5 w/ LR @ 100/hr - Continue pain control at Acetaminophen IV for 1-6 pain and Morphine 2 mg IV for 7-10 - Continue Zofran and Compazine PRN for nausea - General Surgery following - Hgb 9.6/Hct 29.7 - will monitor via CBC KUB 03/01/22 - Gaseous distention of the stomach without evidence of bowel obstruction. 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 - Most recent Chemotherapy treatment 02/23/22, she has another treatment scheduled next week - Patient is s/p 6 cycles of Carbo/Paclitaxel (09/06-11/08) - Currently managed on Doxil/Mvazi (started 12/01/21) - planned 6 rounds - Dr. Crocker planning debulking surgery w/ intraperitoneal chemotherapy - Most recent f/u with Sravani Katz PA-C - Will notify oncology team if clinical picture necessitates (3) Hypokalemia: Plan: - K 3.3 at 0630 on 03/02, repleted with 10 mEq IV over 1 hr x 4, will recheck in AM - Mg levels 1.4 on 03/01 repleted with 3g of Magnesium Sulfate over 6 hours (1g every 2 hours) - Will monitor K and Mg levels via BMP and Mg Levels (4) Asthma: Plan: - Continue home Qvar Redihaler in AM - Hold home Montelukast (5) Migraine: Plan: - Hold home Topiramate (6) GERD (gastroesophageal reflux disease): Plan: - Home Pantoprazole and Famotidine IV (7) Anxiety and depression: Plan: - Hold home Sertraline - Started patient's home dose of Ativan 0.5 mg for anxiety symptoms, added Rx for 0.25 mg Ativan for mild-moderate anxiety. Plan Fluids: D5 LR @ 100 mL/hr Code Status: Full Diet: Clear Liquids, no gluten, no lactose DVT ppx: SCDs/Ambulation Dispo: Med/Surg Admission and Anticipated Discharge Date Admission Date: February 26, 2022 Supervising Physician Co-Signing Physician Notes I also saw the patient and confirmed francis portions of the history and exam. I agree with the impression and plan as noted in the resident documentation. The patient feels better this morning. She explains that late yesterday and overnight she gradually improved. She is hungry this morning. She denies the abdominal fullness that she had yesterday. She has noted some ostomy output. EXAM 137/89, 96, 16, 37 C, 90% room air Pleasant. Heart regular Respirations are nonlabored Abdomen is soft. There is no tenderness. Bowel sounds are auscultated. DATA Hemoglobin 9.6, platelet count 228 Sodium 138, calcium 3.3, BUN 4, creatinine 0.52 KUB from yesterday shows gaseous distention without evidence of bowel obstruction A/P Large bowel obstruction, high-grade Hypokalemia High Grade Intraepithelial carcinoma, left ovary Severe protein calorie malnutrition Clears, may advance to full liquid later today if still doing well Replace potassium and trend BMP Surgery consultation appreciated Additional per resident documentation Angela Llamas is a 57 year old female with history of ovarian cancer, colostomy, asthma, migraines, KRISTI and MDD who was admitted 02/27 due to bowel obstruction proximal to her ostomy site. She is currently being managed for pain and nausea. Today 03/02/22: - Patient is significantly improved, was resting comfortably this morning. - She noted a large loose bowel movement overnight with continued ostomy output this morning. - She denies any abdominal pain or pressure. She denies any upper abdomen discomfort. - She denies any fevers, changes in urination, worsening back or flank pain, or emesis. - Her appetite has returned and she states she is hungry today. - Patient has continued to ambulate without difficulty Review of Systems Review of Systems: See HPI. Physical Exam Physical Exam: Gen: NAD, cachectic, uncomfortable HEENT: NC/AT, MMM Neck: Supple, No LAD Resp: Non-labored, no wheezing/rhonchi/rales, CTAB CV: RRR, normal S1/S2, no M/R/G Abd: 0900 soft, mildly distended, no TTP, normoactive bowels, no masses, ostomy in LLQ without erythema or edema at stoma site, small amount stool in bag. Stool visualized without evidence of compacted stool or blood. Extr: Cap. Refill <2s, 2+ dp bilaterally, no LE edema Skin: Intact, no rashes/lesions/erythema Results & Data Results & Data ([facility]) Vital Signs (Past 12 Hours) Vital Signs Temp Pulse Resp BP BP Pulse Ox O2 Del Method 03/02/22 08:27 37.0 C 96 H 16 137/89 98 Room Air 03/01/22 21:41 36.9 C 88 14 145/84 H 98 Resident Activity Tracking Resident Involvement: Resident Care Provided Care Provided: Adult Hospital Medicine (1) Ovarian cancer Laterality: unspecified laterality Qualified Code(s): C56.9 - Malignant neoplasm of unspecified ovary
[2022-03-02] MEDS: FLUTICASONE FUROATE 100MCG 14 PUFFS/INHALER INH SCH (08:47)
[2022-03-02] MEDS: FLUTICASONE PROPIONATE NA SPR 16 GM BTL SCH ×2 (08:47→20:46)
[2022-03-02] MEDS: PANTOprazole 40 MG in SYRINGE 0 ML IV SCH ×2 (09:06→20:46)
[2022-03-02] MEDS: FAMOTIDINE 20 MG in SYRINGE 3 ML IV SCH ×2 (09:07→20:46)
[2022-03-02] MEDS ORDERED: LORazepam 0.25 MG in SYRINGE 0.125 ML IV PRN (09:49)
--- NOTE | 2022-03-02 12:18 | Surgery Progress Note ---
Date of Service March 02, 2022 Assessment & Plan (1) Large bowel obstruction: Plan: pt is a 57 year-old female who was admitted to hospital for large bowel obstruction, IMP: large bowel obstruction, plan, no emergent surgery indication now, conservative treatment first, npo iv fluid, may need NG tube if pt develops nausea and vomiting, may need transfer to [facility] if failure conservative treatment, pt understood, she agrees with the plan, will F/U, 02/28/2022, 1:59PM Dr. Lu F/Amina SBO, doing better , passed BM, no abdominal pain, clear diet, will F/U, 03/01/2022 7: 08PM Dr. Aly Gaming/Amina SBO, may start clear diet tomorrow, miralax tomorrow, will F/U, 03/02/2022 12:17PM Dr. Lu passed BM, Clear diet, possible D/C home tomorrow, will F/U Admission and Anticipated Discharge Date Admission Date: February 26, 2022 Supervising Physician Co-Signing Physician Notes I also saw the patient and confirmed francis portions of the history and exam. I agree with the impression and plan as noted in the resident documentation. Unfortunately she feels worse this morning. Increased upper gastrointestinal gas and pressure; decreased ostomy output. EXAM 122/78, 98, 16, 37 C, 90% room air Pleasant. Heart regular Respirations are nonlabored DATA Hemoglobin 9.9 BUN 5, creatinine 0.52 Potassium 3.5 A/P Large bowel obstruction, high-grade Hypokalemia, resolved High Grade Intraepithelial carcinoma, left ovary Severe protein calorie malnutrition NPO Check KUB this morning NG tube if there is obstruction or if symptoms continue Additional per resident documentation Subjective Muriel is a 57 year old female with history of ovarian cancer, colostomy, asthma, migraines, KRISTI and MDD who was admitted 02/27 due to bowel obstruction pr oximal to her ostomy site. She is currently being managed for pain and nausea. Today 03/01/22: - Nursing reported worsening of sx overnight - decreased ostomy output and that patient had only been sipping fluid, nursing noted that she had only a few bites of her full liquid dinner, all other input has been clear liquids (pt. was advanced to full liquids 02/28) - Patient notes that around 3 PM yesterday she began to notice increasing abdominal pressures, gaseousness, and burping around 9 PM she noticed that her ostomy output diminished and her abdomen was becoming distended. She notes increased nausea overnight with only small outputs of hard stools since 9PM. - She denies any fevers, changes in urination, worsening back or flank pain, or emesis. - Patient notes a strong aversion to eating d/t her symptoms - Patient has continued to ambulate without difficulty 03/01/2022 7: 06PM, Dr. Aly Gaming/Amina SBO, pt is stable, no nausea, no vomiting,not pass gas or stool , KUB today- XR KUB/Abdomen 1 view CLINICAL HISTORY: Abdominal Distension/pain TECHNIQUE: 1 view of the abdomen was obtained. Comparison: None available at the time of this dictation. FINDINGS: Lung bases are unremarkable. The osseous structures are grossly unremarkable. Large gas bubble in the bilateral quadrant is favored to represent the stomach. A moderate amount of stool is noted within the large bowel. IMPRESSION: Gaseous distention of the stomach without evidence of bowel obstruction. 03/02/2022 12:[address] Aly Gaming/Amina bowel obstruction, pt doing better, passed BM in colostomy bag, no abdominal pain, no fever, Review of Systems Constitutional: as per Subjective / HPI Eyes: as per Subjective / HPI Respiratory: as per Subjective / HPI Cardiovascular: as per Subjective / HPI Gastrointestinal: bowel resection colostomy, Genitourinary: ovary cancer surgery, Neurologic: as per Subjective / HPI Psychiatric: as per Subjective / HPI Endocrine: as per Subjective / HPI Hematologic / Lymphatic: as per Subjective / HPI Physical Exam Constitutional: WD/WN, vitals as above Eyes: PERRL, conjunctivae normal, anicteric sclerae Neck: trachea midline, no thyromegaly Respiratory: normal respiratory effort, lungs clear to auscultation Cardiovascular: RRR, no murmur, no edema Gastrointestinal (Abdomen): soft, NT, ND, some stool in colostomy bag Musculoskeletal: no cyanosis or clubbing, extremities motor strength 5/5 Neurologic: patellar DTR's 2+ bilat, sensation intact Psychiatric: A+Ox3, euthymic affect Results & Data ([facility]) Vital Signs (Past 12 Hours) Vital Signs Temp Pulse Resp BP Pulse Ox O2 Del Method 03/02/22 08:27 37.0 C 96 H 16 137/89 98 Room Air Laboratory Results Abnormal lab results 03/02/22 03/02/22 Range/Units 06:03 06:03 WBC 3.82 L (4.8-10.8) K/ul RBC 3.07 L (3.93-5.22) M/uL Hgb 9.6 L (12.0-16.0) g/dl Hct 29.7 L (34.1-44.9) % RDW Std Deviation 52.2 H (36.4-46.3) fL RDW Coeff of Risa 14.7 H (11.5-14.5) % MPV 9.3 L (9.4-12.3) fL Potassium 3.3 L (3.5-5.1) mmol/L BUN 4 L (6-23) mg/dl Creatinine 0.52 L (0.6-1.2) mg/dl BUN/Creatinine Ratio 7.7 L (10-20) Glucose 106 H (70-99(Fasting)) mg/dl Calcium 7.9 L (8.5-10.1) mg/dl
[2022-03-02] MEDS: SIMETHICONE 80 MG CHEW PO PRN (16:33)
[2022-03-02] MEDS: PROCHLORPERAZINE 5 MG in SYRINGE 4 ML IV PRN (18:13)
[2022-03-02] MEDS: LORazepam 0.5 MG in SYRINGE 0.25 ML IV PRN (18:13)
[2022-03-03] MEDS: D5W AND LACTATED RINGERS 1,000 ML IV SCH (00:55)
[2022-03-03] MEDS: LORazepam 0.5 MG in SYRINGE 0.25 ML IV PRN (02:49)
[2022-03-03 06:39] LABS: Hematocrit (blood only) 29.5 % (34.1-44.9); Hemoglobin 9.4 g/dl (12.0-16.0); Mean Corpuscular Hemoglobin 31.3 pg (25.0-34.0); Mean Corpuscular Hgb Conc 31.9 g/dL (32.0-36.0); Mean Corpuscular Volume 98.3 fL (80.0-100.0); Mean Platelet Volume 9.5 fL (9.4-12.3); Platelet Count 243 K/uL (130-400); RDW Coefficient of Variation 14.6 % (11.5-14.5); RDW Standard Deviation 52.5 fL (36.4-46.3); White Blood Count 4.16 K/ul (4.8-10.8)
[2022-03-03 07:33] LABS: BUN Creatinine Ratio 5.7 (10-20); Calcium 8.2 mg/dl (8.5-10.1); Creatinine Clr Calc Pharmacy 81.6 ml/min; Est GFR (African American) 123.9 ml/min; Est GFR (Non-African American) 106.9 ml/min; Magnesium 1.6 mg/dl (1.7-2.4); Potassium 3.7 mmol/L (3.5-5.1)
[2022-03-03] MEDS: ONDANSETRON INJ 2 MG/ML 2 ML VIAL IV PRN ×2 (08:22→12:26)
[2022-03-03] MEDS: PANTOprazole 40 MG in SYRINGE 0 ML IV SCH (08:23)
[2022-03-03] MEDS: FAMOTIDINE 20 MG in SYRINGE 3 ML IV SCH (08:23)
[2022-03-03] MEDS: FLUTICASONE PROPIONATE NA SPR 16 GM BTL SCH (08:23)
[2022-03-03] MEDS: FLUTICASONE FUROATE 100MCG 14 PUFFS/INHALER INH SCH (08:24)
[2022-03-03] MEDS ORDERED: MAG SULFATE 50% 1GM/2ML VIAL IV ONE (08:59)
[2022-03-03] MEDS: MAGNESIUM SULFATE / D5W 1 GM/100 ML BAG IV SCH ×4 (10:19→16:42)
[2022-03-03] MEDS: SIMETHICONE 80 MG CHEW PO PRN (11:04)
--- NOTE | 2022-03-03 12:47 | Surgery Progress Note ---
Date of Service March 03, 2022 Assessment & Plan (1) Large bowel obstruction: Plan: pt is a 57 year-old female who was admitted to hospital for large bowel obstruction, IMP: large bowel obstruction, plan, no emergent surgery indication now, conservative treatment first, npo iv fluid, may need NG tube if pt develops nausea and vomiting, may need transfer to [facility] if failure conservative treatment, pt understood, she agrees with the plan, will F/U, 02/28/2022, 1:59PM Dr. Lu F/U SBO, doing better , passed BM, no abdominal pain, clear diet, will F/U, 03/01/2022 7: 08PM Dr. Aly Gaming/Amina SBO, may start clear diet tomorrow, miralax tomorrow, will F/U, 03/02/2022 12:17PM Dr. Lu passed BM, Clear diet, possible D/C home tomorrow, will F/U 03/03/2022 12:46PM SBO resolved, soft diet, insulation engineman surgeon will cover this weekend, Thanks, Admission and Anticipated Discharge Date Admission Date: February 26, 2022 Supervising Physician Co-Signing Physician Notes I also saw the patient and confirmed francis portions of the history and exam. I agree with the impression and plan as noted in the resident documentation. The patient feels better this morning. She explains that late yesterday and overnight she gradually improved. She is hungry this morning. She denies the abdominal fullness that she had yesterday. She has noted some ostomy output. EXAM 137/89, 96, 16, 37 C, 90% room air Pleasant. Heart regular Respirations are nonlabored Abdomen is soft. There is no tenderness. Bowel sounds are auscultated. DATA Hemoglobin 9.6, platelet count 228 Sodium 138, calcium 3.3, BUN 4, creatinine 0.52 KUB from yesterday shows gaseous distention without evidence of bowel obstruction A/P Large bowel obstruction, high-grade Hypokalemia High Grade Intraepithelial carcinoma, left ovary Severe protein calorie malnutrition Clears, may advance to full liquid later today if still doing well Replace potassium and trend BMP Surgery consultation appreciated Additional per resident documentation Subjective Muriel is a 57 year old female with history of ovarian cancer, colostomy, asthma, migraines, KRISTI and MDD who was admitted 02/27 due to bowel obstruction proximal to her ostomy site. She is currently being managed for pain and nausea. Today 03/02/22: - Patient is significantly improved, was resting comfortably this morning. - She noted a large loose bowel movement overnight with continued ostomy output this morning. - She denies any abdominal pain or pressure. She denies any upper abdomen discomfort. - She denies any fevers, changes in urination, worsening back or flank pain, or emesis. - Her appetite has returned and she states she is hungry today. - Patient has continued to ambulate without difficulty 03/03/2022 12:45PM Dr. Lu F/U SBO, doing better, passed BM, no abdominal pain, Review of Systems Constitutional: as per Subjective / HPI Eyes: as per Subjective / HPI Respiratory: as per Subjective / HPI Cardiovascular: as per Subjective / HPI Gastrointestinal: bowel resection colostomy, Genitourinary: ovary cancer surgery, Neurologic: as per Subjective / HPI Psychiatric: as per Subjective / HPI Endocrine: as per Subjective / HPI Hematologic / Lymphatic: as per Subjective / HPI Physical Exam Constitutional: WD/WN, vitals as above Eyes: PERRL, conjunctivae normal, anicteric sclerae Neck: trachea midline, no thyromegaly Respiratory: normal respiratory effort, lungs clear to auscultation Cardiovascular: RRR, no murmur, no edema Gastrointestinal (Abdomen): soft, NT, ND, BS + Musculoskeletal: no cyanosis or clubbing, extremities motor strength 5/5 Neurologic: patellar DTR's 2+ bilat, sensation intact Psychiatric: A+Ox3, euthymic affect Results & Data ([facility]) Vital Signs (Past 12 Hours) Vital Signs Temp Pulse Resp BP Pulse Ox O2 Del Method 03/03/22 07:37 37.2 C 93 H 16 123/86 100 Room Air Laboratory Results Abnormal lab results 03/03/22 03/03/22 Range/Units 06:11 06:11 WBC 4.16 L (4.8-10.8) K/ul RBC 3.00 L (3.93-5.22) M/uL Hgb 9.4 L (12.0-16.0) g/dl Hct 29.5 L (34.1-44.9) % MCHC 31.9 L (32.0-36.0) g/dL RDW Std Deviation 52.5 H (36.4-46.3) fL RDW Coeff of Risa 14.6 H (11.5-14.5) % BUN 3 L (6-23) mg/dl Creatinine 0.53 L (0.6-1.2) mg/dl BUN/Creatinine Ratio 5.7 L (10-20) Glucose 103 H (70-99(Fasting)) mg/dl Calcium 8.2 L (8.5-10.1) mg/dl Magnesium 1.6 L (1.7-2.4) mg/dl
--- NOTE | 2022-03-03 17:12 | Discharge Summary ---
Date of Service March 03, 2022 Admission HPI Per Admitting Provider 57yo female with a history of ovarian cancer, colostomy placement, asthma, migraine, KRISTI, and MDD presents with a one-day history of minimal ostomy output, cramping abdominal pain, nausea, and low PO intake. Patient's last output from her stoma was about 36 hours prior. Patient has been trying to stay well- hydrated and has continued taking her scheduled percocet. Patient's abdominal pain is constant, cramping, and is centered around her stoma. Patient denies fever, chills, headache, vision changes, CP, palpitations, SOB, edema, vomiting, dysuria, hematochezia, melena, lightheadedness, dizziness, numbness, tingling, weakness, or other symptoms. Denies recent illness and recent travel. Of note, patient's last chemotherapy was last (02/23) and had a paracentesis on Sunday (02/24). Patient's ostomy was placed in June. Upon arrival, vitals were notable for slightly elevated BP. Patient was afebrile, not tachycardic or tachypneic on arrival, and spO2 was adequate on room air. Initial labs were notable for mild hyponatremia (132), mild hypokalemia (3.2), and minimally elevated alk phos (108); CBC unremarkable, no other electrolyte abnormalities, LFTs otherwise normal, lipase normal, lactate not elevated. In the ED, patient required morphine IV 12mg in total (between 17:00 and 20:00), zofran IV 12mg in total, compazine IV 5mg (x1), NSS 1L bolus (x1), and one K rider. CT abdomen/pelvis was notable for: * 1. Partial bowel resection with left lower quadrant colostomy. There is high- grade large bowel obstruction just proximal to the colostomy site which may be secondary to adhesions. * 2. Limited evaluation of the patient's metastatic disease without the use of IV contrast. Omental and peritoneal lesions are better visualized on the prior studies. * 3. Small to moderate likely malignant abdominopelvic ascites has progressed from prior. Surrogate decision-maker in case of an emergency: Tee Schultz (cell: [phone]). Admission Exam Per Admitting Provider Constitutional: well-appearing, no acute distress HEENT: NCAT, no conjunctival injection, no scleral icterus CV: regular rhythm, no murmur appreciated, extremities well-perfused, no LE edema Resp: CTABL, no wheezes/rales/rhonchi appreciated, no increased work of breathing GI: soft, nondistended, mild/moderate tenderness to palpation of the RUQ, LUQ, and epigastrium; RLQ and LLQ nontender; BS hypoactive MSK: no gross deformities appreciated Skin: abdominal ostomy site noted, no surrounding erythema, edema, exudate, or warmth to touch Neuro: alert, oriented, no focal neurologic deficit appreciated Principal Diagnosis Large bowel obstruction Discharge Exam General: Gaunt, frail-appearing, alert, interactive, woman in no acute distress. HEENT: Normocephalic, atraumatic. EOM intact. Good conjugate gaze. Nares patent. Moist mucosal membranes. Neck: Supple. No lymphadenopathy. Normal ROM. CV: Regular rate and rhythm. Normal S1 and S2. No murmurs gallops or rubs. Respiratory: Normal respiratory effort. Lungs clear to auscultation bilaterally. No crackles, rhonchi, or wheezes. Abdomen: Soft, nondistended abdomen. No bruits heard on auscultation. No tenderness to deep palpation. Ostomy bag in left lower quadrant. Surrounding skin without redness, swelling or irritation. Extremities: Capillary refill <2 sec. 2+ dp equal bilaterally. No pedal edema. Neuro: Alert and oriented x3. Skin: Clean, dry, and intact. No rashes, bruises, or erythema. Discharge Data Allergies Allergy/AdvReac Type Severity Reaction Status Date / Time doxycycline Allergy Intermediate RASH Verified 02/26/22 17:42 gluten AdvReac Intermediate Abdominal Verified 02/26/22 17:42 Pain lactose AdvReac Intermediate Abdominal Verified 02/26/22 17:42 Pain Penicillins AdvReac Intermediate Nausea, Verified 02/26/22 17:42 diarrhea Consultations 02/26/22 20:40 ED Decision to Admit Stat 02/27/22 09:35 Consult General Surgery Routine Ordered Studies 02/26/22 15:52 CT abd pelvis oral con only Stat Hospital Course (1) Large bowel obstruction: Muriel is a 57 year old female with history of ovarian cancer, colostomy, asthma, migraines, KRISTI and MDD who was admitted 02/27 due to bowel obstruction proximal to her ostomy site. She is currently being managed for pain and nausea, doing well on clear liquid diet. Large Bowel Obstruction w/ Low Ostomy Output, Abdominal Pain, and Nausea - Clinical improvement of patient's symptoms and physical exam - Patient to resume clear liquid diet at 1200, will continue full liquids for 24 hours and advance as tolerated. - Patient is receiving D5 w/ LR @ 100/hr - Continue pain control at Acetaminophen IV for 1-6 pain and Morphine 2 mg IV for 7-10 - Continue Zofran and Compazine PRN for nausea. DC to discharge - General Surgery following: Declined surgical intervention at this time. -Discharged today after successfully tolerating soft diet for lunch. Discharged with instructions to advance diet slowly at home. Holding home Percocet until symptoms resolve, outpatient PCP follow-up. KUB 03/01/22 - Gaseous distention of the stomach without evidence of bowel obstruction. 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 - Most recent Chemotherapy treatment 02/23/22, she has another treatment scheduled next week - Patient is s/p 6 cycles of Carbo/Paclitaxel (09/06-11/08) - Currently managed on Doxil/Mvazi (started 12/01/21) - planned 6 rounds - Dr. Crocker planning debulking surgery w/ intraperitoneal chemotherapy - Most recent f/u with Sravani Katz PA-C - Will notify oncology team if clinical picture necessitates (3) Hypokalemia: - K 3.3 at 0630 on 03/02, repleted with 10 mEq IV over 1 hr x 4, will recheck in AM - Repleted magnesium, potassium via IV, p.o. respectively. (4) Asthma: - Continue home Qvar Redihaler in AM - Hold home Montelukast (5) Migraine: - Hold home Topiramate (6) GERD (gastroesophageal reflux disease): - Home Pantoprazole and Famotidine IV (7) Anxiety and depression: - Hold home Sertraline. Resume on discharge - Started patient's home dose of Ativan 0.5 mg for anxiety symptoms, added Rx for 0.25 mg Ativan for mild-moderate anxiety. Plan Fluids: D5 LR @ 100 mL/hr Code Status: Full Diet: Clear Liquids, no gluten, no lactose DVT ppx: SCDs/Ambulation Dispo: Med/Surg Total Time Total Time Spent Total Time Spent (In Minutes): 15 Discharge Plan Discharge Items Patient Disposition: Home - Self-Care Reason For Visit: SBO Discharge Diagnosis: Large bowel obstruction Condition on Discharge: Fair Activity: Resume your previous activity Non-emergency contact: Primary Care Provider and Circulating Process Inspector Call non-emergency contact if: your symptoms worsen, your pain is not controlled and your pain is worsening Follow-up/Referrals: Saida Senior MD [Primary Care Provider] - Diet: Regular Addtl Attending Provider Instructions: You were admitted to the hospital for x. You were treated with x. A discharge summary will be sent to your primary care physician to ensure continuity of care. Please bring this discharge summary with you to your next office appointment so that your provider can review it at that time. Follow-up appointments: * Make a follow-up appointment with your PCP within the next week. It is very important that you follow up with them shortly after discharge from the hospital. * Keep all your follow-up appointments as already scheduled. If you cannot make an appointment, notify your provider. Medications: Your medication list has been reviewed and reconciled upon discharge to ensure accuracy and continuity of care. * We are stopping your Percocet in light of your bowel obstruction. Continue holding Percocet unless otherwise instructed by your primary care physician. Take your medications as instructed; do not skip a dose of your medicines. Make sure all of your doctors know every medicine you are taking (including aany-sow-bhspxdw medicines, vitamins, and supplements). Call your primary care provider before taking any new medicines (including jany-yev-worqmsl medicines, vitamins, and supplements), because some of these may interact with your current medications, or may make your symptoms worse. Tell your primary care provider if you cannot afford your medications. CONTACT YOUR PRIMARY CARE PROVIDER if you experience any of the following: * Abdominal pain, or vomiting worsened by eating * increased bloating or abdominal distention. * Difficulty following your treatment plan, or difficulty taking medications CALL 911 OR GO TO THE EMERGENCY DEPARTMENT if you experience any of the following: * Sudden, severe abdominal pain or nausea/vomiting * Severe chest pain, or chest pain that radiates (moves) to your jaw or arm * Sudden, severe shortness of breath or difficulty breathing Thank you for allowing us to participate in your care. Pending Studies at Discharge: No Stand-Alone Forms: [facility], Smoking Cessation Medications and DC Order Prescriptions: Continued cholecalciferol (vitamin D3) 50 mcg (2,000 unit) capsule 50 mcg PO QAM fluticasone propionate [Flonase Allergy Relief] 50 mcg/actuation spray,suspension 1 spray intranasal BID Rx Instructions: administer into each nostril fexofenadine [Liana Allergy] 180 mg tablet 180 mg PO HS topiramate [Topamax] 100 mg tablet 100 mg PO QPM pxrnvvt-doyafsvye-dpkrnpnyzysa Capsule 1 cap PO DAILY PRN (Reason: MIGRAINES) Rx Instructions: MIDRIN acetaminophen [Tylenol] 325 mg tablet 325 mg PO QID PRN (Reason: Pain) Protonix [address] tobias susp in packet 40 mg PO QAM sertraline 100 mg tablet 200 mg PO QPM montelukast 10 mg tablet 10 mg PO QPM prochlorperazine maleate [Compazine] 5 mg Tablet 5 mg PO BID PRN (Reason: Nausea) Qvar RediHaler 40 mcg/actuation Hfa Aerosol Breath Activated 1 inh INHALATION QAM Ajovy Autoinjector 225 mg/1.5 mL Auto-Injector 225 mg SUBCUT MONTHLY Rx Instructions: RECIEVES 1 X MONTHLY famotidine 20 mg tablet 20 mg PO QAM dapsone 25 mg tablet 25 mg PO BID ondansetron HCl 4 mg Tablet 4 mg PO Q6H PRN (Reason: Nausea) Discontinued oxycodone-acetaminophen 5-325 mg Tablet 1 tab PO TID PRN (Reason: Pain, Mild) Discharge Orders: Discharge Order (Routine); Ordered 03/03/22 Ordered By: Ye Owen/Other Patient Handouts: Hypokalemia Dc, Hypomagnesemia Dc Admission Data Admit Date/Time: 02/26/22 21:43 Attending Provider: Randy Sellers Admit Provider: Mac Avalos Primary Care Provider: Saida Senior Other Providers: Gelacio Chopra ; Ponce Lu Other Interventions: Discharge Summary Assessment (RN) Last Done: 03/03/22 16:47 Supervising Physician Co-Signing Physician Notes Patient seen and examined with PGY-2 Dr. Haynes. Agree with history, exam findings, assessment and plan of care as outlined. In brief, Muriel is a 57 year old female with history of ovarian cancer, colostomy, asthma, migraines, KRISTI and MDD admitted with bowel obstruction proximal to ostomy site. Today, reports abdominal pain is improving. Ostomy is functioning. Feels that she would like to try soft, bite size foods. Nausea seems to be mostly related to her "rumbling" in her stomach. Minimal nausea. No vomiting. 1. Large bowel obstruction. Improving. On day of discharge was able to tolerate soft foods. D/C IVFs. Has not needed any pain medication in the last 1- 2 days. Zofran and Compazine PRN nausea. 2. Ovarian Cancer. On chemotherapy with plans for debulking surgery with intraperitoneal chemotherapy. 3. Hypokalemia. resolved and expect this will continue to stay in an appropriate range once she is able to take PO. 4. Hypomagnesemia. Repleted with 4g Mg. 5. Anxiety and depression. Holding home sertraline. PRN Ativan 0.5mg for severe anxiety, Ativan 0.25mg for mild to moderate anxiety. Can restart home sertraline on discharge. Dispo: Discharge home today. I personally spent 35 minutes discharge planning for this patient today. Resident Activity Tracking Resident Involvement: Resident Care Provided Care Provided: [facility]
== END 2022-03-03 19:44 | disposition home or self-care (01) | DRG 388 ==
LOC: ED 15:20 → 3E 21:43 → SUATTDRO 21:43 → 3E 02-27 00:42
DX: Z88.0 Allergy status to penicillin; F41.1 Generalized anxiety disorder; F32.9 Major depressive disorder, single episode, unspecified; Z80.3 Family history of malignant neoplasm of breast; E87.1 Hypo-osmolality and hyponatremia; G43.909 Migraine, unspecified, not intractable, without status migrainosus; Z91.018 Allergy to other foods; J45.909 Unspecified asthma, uncomplicated; Z20.822 Contact with and (suspected) exposure to COVID-19; C56.2 Malignant neoplasm of left ovary; E43 Unspecified severe protein-calorie malnutrition; Z79.899 Other long term (current) drug therapy; Z93.3 Colostomy status; K21.9 Gastro-esophageal reflux disease without esophagitis; E83.42 Hypomagnesemia; Z88.1 Allergy status to other antibiotic agents; E87.6 Hypokalemia; C78.6 Secondary malignant neoplasm of retroperitoneum and peritoneum; Z68.1 Body mass index [BMI] 19.9 or less, adult; Z79.51 Long term (current) use of inhaled steroids; Z82.5 Family history of asthma and other chronic lower respiratory diseases; K90.41 Non-celiac gluten sensitivity; K56.50 Intestinal adhesions [bands], unspecified as to partial versus complete obstruction

== ENCOUNTER 2022-03-06 13:21 | Inpatient (IN) ==
[2022-03-06] MEDS ORDERED: HYDROmorphone INJ 0.5 MG/0.5 ML SYR IV STA (14:07)
[2022-03-06] MEDS ORDERED: ONDANSETRON INJ 2 MG/ML 2 ML VIAL IV STA (14:07)
[2022-03-06 14:29] LABS: Hematocrit (blood only) 37.9 % (34.1-44.9); Hemoglobin 12.4 g/dl (12.0-16.0); Mean Corpuscular Hemoglobin 31.4 pg (25.0-34.0); Mean Corpuscular Hgb Conc 32.7 g/dL (32.0-36.0); Mean Corpuscular Volume 95.9 fL (80.0-100.0); Mean Platelet Volume 9.5 fL (9.4-12.3); Platelet Count 298 K/uL (130-400); RDW Coefficient of Variation 14.4 % (11.5-14.5); RDW Standard Deviation 50.4 fL (36.4-46.3); Red Blood Count 3.95 M/uL (3.93-5.22); White Blood Count 9.38 K/ul (4.8-10.8)
--- NOTE | 2022-03-06 14:37 | Emergency Department Note ---
History of Present Illness General Chief complaint: Back Injury/Pain Stated complaint: INTENSIVE PAIN IN LOWER BACK Time Seen by Provider: 03/06/22 13:35 Source: patient Mode of arrival: ambulatory Limitations: no limitations History of Present Illness Maximum Pain Intensity: 10 This patient is a 57-year-old female with past medical history of ovarian cancer who presents to the emergency department for evaluation of back pain, headache and abdominal pressure. Patient was recently discharged after a bowel obstru ction. Since being home, she has had pressure in her upper abdomen associated with nausea. She has not been vomiting. She states that today, she woke up with severe pain in her left low back as well as a severe migraine. Patient does have some chronic back pain and states it is not unusual for her to have pain in the back, but this is worse than usual. She does report a history of migraines and missed her last Ajovy injection due to hospitalization. Pain is located above the right eye which is the typical location of her migraines. Patient does report an increase in her anxiety and depression over the weekend and feels this was because she did not have her usual medications while she was in the hospital. Patient has ovarian cancer and is followed at [facility] [employer] Specialist/onc by Dr. Villagran. She is currently getting chemotherapy, last treatment approximately 11 days ago. She does have an ostomy and has had normal output. Home Medications Medication Instructions Recorded Confirmed Type pantoprazole 40 mg granules 40 mg PO QAM 07/28/19 03/06/22 History delayed-release for susp in packet (Protonix) montelukast 10 mg tablet 10 mg PO QPM 11/05/19 03/06/22 History sertraline 100 mg tablet 200 mg PO QPM 11/05/19 03/06/22 History dapsone 25 mg tablet 25 mg PO BID 04/13/20 03/06/22 History famotidine 20 mg tablet 20 mg PO QAM 04/13/20 03/06/22 History cholecalciferol (vitamin D3) 50 50 mcg PO QAM 05/11/20 03/06/22 History mcg (2,000 unit) capsule fexofenadine 180 mg tablet 180 mg PO HS 05/11/20 03/06/22 History (Liana Allergy) fluticasone propionate 50 1 spray intranasal BID 05/11/20 03/06/22 History mcg/actuation nasal spray,suspension (Flonase Allergy Relief) topiramate 100 mg tablet (Topamax) 100 mg PO QPM 05/11/20 03/06/22 History beclomethasone dipropionate 40 1 inh inhalation QAM 05/12/20 03/06/22 History mcg/actuation HFA breath activated aerosol (Qvar RediHaler) fremanezumab-vfrm 225 mg/1.5 mL 225 mg subcut MONTHLY 05/12/20 03/06/22 History subcutaneous auto-injector (Ajovy) prochlorperazine maleate 5 mg 5 mg PO BID PRN Nausea 05/12/20 03/06/22 History tablet (Compazine) acetaminophen 325 mg tablet 325 mg PO QID PRN Pain 08/13/20 03/06/22 History (Tylenol) yeeiksfsxvxud-zfonzcewedzyoulgwn-pcezeuuogrwxm 1 cap PO DAILY PRN MIGRAINES 08/13/20 03/06/22 History capsule ondansetron HCl 4 mg tablet 4 mg PO Q6H PRN Nausea 08/25/21 03/06/22 History Muscle Relaxant Pill 1 tab PO DIRECTED PRN Muscle 03/06/22 03/06/22 History Pain oxycodone-acetaminophen 5 mg-325 1 tab PO Q4 PRN Pain 03/06/22 03/06/22 History mg tablet Allergies Allergy/AdvReac Type Severity Reaction Status Date / Time doxycycline Allergy Intermediate RASH Verified 03/06/22 17:42 gluten AdvReac Intermediate Abdominal Verified 03/06/22 17:42 Pain lactose AdvReac Intermediate Abdominal Verified 03/06/22 17:42 Pain Penicillins AdvReac Intermediate Nausea, Verified 03/06/22 17:42 diarrhea Past Med/Surg History Medical History Anxiety and depression Asthma LAST USED RESCUE INHALER>BEEN A WHILE Bilateral tinnitus Colostomy present Environmental allergies GERD (gastroesophageal reflux disease) Gluten intolerance History of anorexia nervosa History of ileus S/P HYSTERECTOMY Itching REASON FOR DAPSONE Low iron HX IRON INFUSION Migraine Ovarian cancer PRESENT DX>REASON FOR A-PORT (HAS RECIEVED 6 CYCLES OF CHEMO 1 YEAR AGO) Surgical History H/O abdominal surgery AT [facility] 07/20/21 TO REMOVE CANCER IN ABDOMEN/COLON RESECTION WITH COLOSTOMY & INTRAPERITONEAL CHEMO H/O total hysterectomy + REMOVAL OVARIAN CYSTECTOMY History of colonoscopy History of esophagogastroduodenoscopy (EGD) History of knee surgery LEFT PATELLA REPAIR Nausea and vomiting after administration of anesthetic agent Port-A-Cath in place (08/30/21) Insertion Access Port with Fluoroscopy(Right) - Ilan Vee DO 08/30/2021 [place] teeth removed Family History Grandmother (Maternal) Breast cancer Hypertension Grandfather (Maternal) No problems noted. 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 Seatbelt Use: always Sunscreen Use: Yes Assistive Devices: None Review of Systems A total of 10 systems reviewed and were otherwise negative Physical Exam Vital Signs Vital Signs - 24 hr 03/06/22 13:22 03/06/22 14:13 03/06/22 14:13 Temperature 36.4 C L Temperature Source Temporal Artery Scan Pulse Rate 108 H 91 H Pulse Rate [Finger] 90 Pulse Rhythm Regular Pulse Rhythm [Finger] Regular Pulse Strength [Finger] Normal Respiratory Rate 19 17 17 Respiratory Effort / Characteristics Non-Labored Non-Labored Respiratory Depth Normal Respiratory Pattern Regular Blood Pressure 156/90 H Blood Pressure [Left Arm] 144/83 H Blood Pressure Mean 112 Blood Pressure Mean [Left Arm] 103 Blood Pressure Position [Left Arm] Lying Pulse Oximetry 96 98 98 Oxygen Delivery Method Room Air Room Air Room Air Sepsis Recent Fever Within 48 Hours No Sepsis New/Unexplained Change in Mental Status N/A Sepsis Action Taken by Nursing No Action Required 03/06/22 18:42 Temperature Temperature Source Pulse Rate Pulse Rate [Finger] 88 Pulse Rhythm Pulse Rhythm [Finger] Regular Pulse Strength [Finger] Normal Respiratory Rate 16 Respiratory Effort / Characteristics Non-Labored Respiratory Depth Normal Respiratory Pattern Regular Blood Pressure Blood Pressure [Left Arm] 129/88 Blood Pressure Mean Blood Pressure Mean [Left Arm] 101 Blood Pressure Position [Left Arm] Lying Pulse Oximetry 97 Oxygen Delivery Method Room Air Sepsis Recent Fever Within 48 Hours Sepsis New/Unexplained Change in Mental Status Sepsis Action Taken by Nursing VITALS: Vitals are noted on the nurse's note and reviewed by myself. GENERAL: This patient is a 57-year-old female, cachectic, chronically ill- appearing. SKIN: The skin was without rashes. EARS: External auditory canals clear, tympanic membranes pearly abreu without erythema or effusion bilaterally. EYES: Pupils equal round and reactive to light and accommodation. MOUTH: Mucous membranes moist. Tonsils are not enlarged. Pharynx without erythema or exudate. NECK: Supple without nuchal rigidity. No lymphadenopathy. HEART: Regular rate and rhythm without murmurs gallops or rubs. LUNGS: Clear to auscultation bilaterally without wheezes, rales or rhonchi. ABDOMEN: Positive bowel sounds x 4. Bowel sounds slightly hyperactive. Ostomy in place in the left lower abdomen. Abdomen is nontender to palpation. MUSCULOSKELETAL: There is mild tenderness to palpation of the left lumbar region/left lumbar paraspinous muscles. NEURO: Patient was alert and oriented to person place and time. Course Administered Medications Lactated Ringer's (Lr) 1,000 mls @ 100 mls/hr IV .Q10H CRYSTAL Stop: 04/05/22 19:43 Last Admin: 03/06/22 20:34 Dose: 100 mls/hr Documented By: MICHIW Phenol (Chloraseptic 1.4% Soln 180 Ml Btl) 1 sprays MT Q4H PRN PRN Reason: throat pain Stop: 04/05/22 19:43 Last Admin: 03/06/22 20:34 Dose: 1 sprays Documented By: ASW Discontinued Medications Hydromorphone HCl (Hydromorphone Inj 0.5 Mg/0.5 Ml Syr) 0.25 mg IV NOW STA Stop: 03/06/22 14:08 Last Admin: 03/06/22 14:24 Dose: 0.5 mg Documented By: ELMER Sodium Chloride (Nss 1000ml) 1,000 mls @ 999 mls/hr IV .Q1H1M CRYSTAL Stop: 03/06/22 15:59 Last Infusion: 03/06/22 17:13 Dose: 0 mls/hr Documented By: Admin: 03/06/22 15:03 Dose: 999 mls/hr Documented By: ELMER Ioversol (Optiray 300 100ml) 89 ml IV ONCE ONE Stop: 03/06/22 15:57 Last Admin: 03/06/22 15:56 Dose: 89 ml Documented By: XIAO Ketorolac Tromethamine (Ketorolac Tromethamine 15 Mg/Ml Vial) Confirm Administered Dose 15 mg .ROUTE .STK-MED ONE Stop: 03/06/22 19:56 Last Admin: 03/06/22 20:03 Dose: 15 mg Documented By: WIL Ondansetron HCl (Ondansetron Inj 2 Mg/Ml 2 Ml Vial) 4 mg IV NOW STA Stop: 03/06/22 14:08 Last Admin: 03/06/22 14:24 Dose: 4 mg Documented By: ELMER Medical Decision Making Differential Diagnosis Differential diagnosis includes appendicitis, diverticulitis, bowel obstruction, inflammatory bowel disease, renal colic, PUD, biliary pathology, pancreatitis, mesenteric ischemia, aortic pathology, infection, genitourinary, UTI, perforated viscus, among others. Home Medications Current Medication List: was personally reviewed by me Laboratory Data Attestation: I reviewed the patient's lab results. Result diagrams: 03/06/22 14:20 03/06/22 14:20 Lab Results 03/06/22 03/06/22 03/06/22 Range/Units 14:20 14:20 15:20 WBC 9.38 (4.8-10.8) K/ul RBC 3.95 (3.93-5.22) M/uL Hgb 12.4 (12.0-16.0) g/dl Hct 37.9 (34.1-44.9) % MCV 95.9 (80.0-100.0) fL MCH 31.4 (25.0-34.0) pg MCHC 32.7 (32.0-36.0) g/dL RDW Std Deviation 50.4 H (36.4-46.3) fL RDW Coeff of Risa 14.4 (11.5-14.5) % Plt Count 298 (130-400) K/uL MPV 9.5 (9.4-12.3) fL Immature Gran % (Auto) 0.5 % Neut % (Auto) 90.6 % Lymph % (Auto) 6.1 % [place] % (Auto) 2.3 % Eos % (Auto) 0.1 % Baso % (Auto) 0.4 % Neut # (Auto) 8.49 H (1.4-6.5) K/uL Lymph # (Auto) 0.57 L (1.2-3.4) K/uL [place] # (Auto) 0.22 L (0.24-0.82) K/uL Eos # (Auto) 0.01 (0-0.50) K/uL Baso # (Auto) 0.04 (0-0.2) K/uL Immature Gran # (Auto) 0.05 H (0.00-0.02) K/uL Sodium 133 L (136-145) mmol/L Potassium 3.9 (3.5-5.1) mmol/L Chloride 100 (98-107) mmol/L Carbon Dioxide 23 (21-32) mmol/L Anion Gap 10 (3-11) BUN 5 L (6-23) mg/dl Creatinine 0.62 (0.6-1.2) mg/dl Est Cr Clr Drug Dosing 64.9 ml/min Est GFR ( Amer) 117.7 ml/min Est GFR (Non-Af Amer) 101.5 ml/min BUN/Creatinine Ratio 8.1 L (10-20) Glucose 115 H (70-99(Fasting)) mg/dl Calcium 9.3 (8.5-10.1) mg/dl Total Bilirubin 0.4 (0.2-1.0) mg/dl AST 18 (13-39) U/L ALT 13 (7-52) U/L Alkaline Phosphatase 101 (34-104) U/L Total Protein 7.1 (6.0-8.3) gm/dl Albumin 4.1 (3.4-5.0) gm/dl Globulin 3.0 (2.5-4.0) gm/dl Albumin/Globulin Ratio 1.4 (0.9-2) Lipase 13 (11-82) U/L Urine Color Yellow Urine Appearance Clear (Clear) Urine pH 7.0 (4.5-7.5) Ur Specific [place] 1.018 (1.000-1.030) Urine Protein Negative (Negative) Urine Glucose (UA) Negative (Negative) Urine Ketones 1+ H (Negative) Urine Blood Negative (Negative) Urine Nitrite Negative (Negative) Urine Bilirubin Negative (Negative) Urine Urobilinogen Negative (Negative) Ur Leukocyte Esterase 2+ H (Negative) Urine WBC (Auto) >30 H (0-5) /hpf Urine RBC (Auto) 0-4 (0-4) /hpf U Hyaline Cast (Auto) 10-30 H (0-5) /lpf U Epithel Cells (Auto) >30 H (0-5) /lpf Urine Bacteria (Auto) Negative (Negative) Ur Renal Epithelial Cell Not Reportable SARS-CoV-2, RNA, NAAT (NEGATIVE) 03/06/22 Range/Units 18:00 WBC (4.8-10.8) K/ul RBC (3.93-5.22) M/uL Hgb (12.0-16.0) g/dl Hct (34.1-44.9) % MCV (80.0-100.0) fL MCH (25.0-34.0) pg MCHC (32.0-36.0) g/dL RDW Std Deviation (36.4-46.3) fL RDW Coeff of Risa (11.5-14.5) % Plt Count (130-400) K/uL MPV (9.4-12.3) fL Immature Gran % (Auto) % Neut % (Auto) % Lymph % (Auto) % [place] % (Auto) % Eos % (Auto) % Baso % (Auto) % Neut # (Auto) (1.4-6.5) K/uL Lymph # (Auto) (1.2-3.4) K/uL [place] # (Auto) (0.24-0.82) K/uL Eos # (Auto) (0-0.50) K/uL Baso # (Auto) (0-0.2) K/uL Immature Gran # (Auto) (0.00-0.02) K/uL Sodium (136-145) mmol/L Potassium (3.5-5.1) mmol/L Chloride (98-107) mmol/L Carbon Dioxide (21-32) mmol/L Anion Gap (3-11) BUN (6-23) mg/dl Creatinine (0.6-1.2) mg/dl Est Cr Clr Drug Dosing ml/min Est GFR ( Amer) ml/min Est GFR (Non-Af Amer) ml/min BUN/Creatinine Ratio (10-20) Glucose (70-99(Fasting)) mg/dl Calcium (8.5-10.1) mg/dl Total Bilirubin (0.2-1.0) mg/dl AST (13-39) U/L ALT (7-52) U/L Alkaline Phosphatase (34-104) U/L Total Protein (6.0-8.3) gm/dl Albumin (3.4-5.0) gm/dl Globulin (2.5-4.0) gm/dl Albumin/Globulin Ratio (0.9-2) Lipase (11-82) U/L Urine Color Urine Appearance (Clear) Urine pH (4.5-7.5) Ur Specific [place] (1.000-1.030) Urine Protein (Negative) Urine Glucose (UA) (Negative) Urine Ketones (Negative) Urine Blood (Negative) Urine Nitrite (Negative) Urine Bilirubin (Negative) Urine Urobilinogen (Negative) Ur Leukocyte Esterase (Negative) Urine WBC (Auto) (0-5) /hpf Urine RBC (Auto) (0-4) /hpf U Hyaline Cast (Auto) (0-5) /lpf U Epithel Cells (Auto) (0-5) /lpf Urine Bacteria (Auto) (Negative) Ur Renal Epithelial Cell SARS-CoV-2, RNA, NAAT NEGATIVE (NEGATIVE) Imaging Data Attestation: I personally reviewed and interpreted this imaging study as follows: Radiologist's Impression: Abdomen/Pelvis CT 03/06/22 14:[address] WITH IV CONTRAST CT DOSE: 272.17 mGy.cm HISTORY: recent small bowel obstruction, generalized abdominal pain, left back pain TECHNIQUE: Multiaxial CT images of the abdomen and pelvis were performed following the use of intravenous contrast. A dose lowering technique was utilized adhering to the principles of ALARA. COMPARISON STUDY: Abdomen and pelvis CT 02/26/2022. FINDINGS: The lung bases are clear. No pneumoperitoneum. No pneumatosis. No suspicious lytic or blastic osseous lesions. There is markedly distended and fluid-filled distal esophagus, stomach, and duodenum which has progressed in the interval. There are mild to moderately distended loops of proximal to mid small bowel which taper to normal caliber distally. This has slightly improved compared the prior study. No clear transition point. The colon is now normal in caliber. Partial bowel resection with a left lower quadrant colostomy is again noted. Small amount of ascites with subtle enhancement of the peritoneal lining and an 8 mm peritoneal soft tissue nodule within the left lower quadrant image 331. This likely corresponds the patient's known radial carcinomatosis. The uterus is surgically absent. The bladder is unremarkable. No retroperitoneal or pelvic lymphadenopathy the kidneys enhance normally. No hydronephrosis. The spleen, gallbladder, and pancreas are unremarkable. There are few small hepatic cysts. The main portal vein is patent. There is a left retroaortic renal vein. Normal caliber abdominal aorta. IMPRESSION: 1. Postoperative changes consistent with bowel resection and a left lower quadrant colostomy. The colonic distention has resolved in the interval. 2. Progressive marked distention of the distal esophagus, stomach, and duodenum with slight improvement in the mildly distended proximal to mid small bowel loops. The distal small bowel loops demonstrate a normal caliber. There is no clear transition point. Therefore, this favors a partial small bowel obstruction. An ileus could also have a similar appearance. 3. Redemonstration of the peritoneal carcinomatosis as described above. ACT 112: Negative or not required by law. Electronically signed by: William Jaimes M.D. 03/06/2022 4:[address] 03/06/22 14:22 CT SCAN OF THE BRAIN WITHOUT IV CONTRAST CLINICAL HISTORY: Headache. History of ovarian cancer. COMPARISON STUDY: MRI of the brain dated 11/04/2020. TECHNIQUE: Unenhanced axial CT scan of the brain is performed from the vertex to the skull base. A dose lowering technique was utilized adhering to the principles of ALARA. CT DOSE: 537.48 mGy.cm FINDINGS: Brain parenchyma: The brain parenchyma is normal in appearance. There is no hemorrhage, mass effect, or evidence of acute territorial ischemia by CT criteria. Abreu-white matter differentiation is preserved. No extra-axial fluid collection is seen. Ventricles, sulci, cisterns: Normal in configuration. Intracranial vasculature: The visualized intracranial vasculature at the skull base is normal in appearance. Calvarium: Unremarkable. Sinuses and mastoids: The visualized paranasal sinuses are clear. The mastoid air cells are well pneumatized. Orbits: The bony orbits are grossly intact. IMPRESSION: No acute intracranial abnormality. ACT 112: Negative or not required by law. Electronically signed by: Jonathan Leo M.D. 03/06/2022 4:[address] 03/06/22 14:22 CT SCAN OF THE LUMBAR SPINE WITH IV CONTRAST CLINICAL HISTORY: Low back pain. History of ovarian cancer. COMPARISON STUDY: Abdominal CT dated 02/26/2022. TECHNIQUE: Following the IV administration of 89 cc of Optiray 320, CT scan of the lumbar spine is performed from the lower thoracic spine to the sacrum. Images are reviewed in the axial, sagittal, and coronal planes. IV contrast was administered without complication. A dose lowering technique was utilized adhering to the principles of ALARA. FINDINGS: The skeletal structures are well mineralized. There is no evidence of fracture or malalignment involving the lumbar spine. Vertebral body height and alignment are maintained. The transverse and spinous processes appear intact. There is no spondylolysis. No lytic or blastic lesion is seen. The disc spaces are maintained. There is no CT evidence of large disc herniation or high-grade central canal stenosis. The paraspinous soft tissues are normal in appearance. A 6 cm hepatic cyst is partially visualized. There is marked dilatation of the stomach and duodenum. The abdominal aorta is normal in caliber. Abdominal ascites is noted. IMPRESSION: 1. No acute bony abnormality is seen involving the lumbar spine. 2. There is marked distention of the stomach and duodenum as well as abdominal ascites. See report of abdominal CT performed concurrently for detailed intra- abdominal findings. ACT 112: Negative or not required by law. Electronically signed by: Jonathan Leo M.D. 03/06/2022 4:13 PM KUB X-Ray 03/06/22 18:08 KUB HISTORY: New NG placement COMPARISON: None. FINDINGS: Markedly distended and gas-filled stomach remains unchanged. Contrast within the renal collecting systems from the recent CT examination. The partially visualized right Port-A-Cath which demonstrates at the SVC. Nasogastr ic tube terminates at the proximal stomach. The fenestrated line of the nasogastric tube is not located within the stomach. Therefore, this should be advanced by approximately 5 to 10 cm. No renal calculi. No ureteral calculi. No pneumoperitoneum or pneumatosis. IMPRESSION: 1. Nasogastric tube terminates at the proximal stomach. The fenestrated line of the nasogastric tube is not located within the stomach. Therefore, this should be advanced by approximately 5 to 10 cm. 2. Persistent gaseous distention of the stomach. ACT 112: Negative or not required by law. Electronically signed by: William Jaimes M.D. 03/06/2022 6:34 PM MDM Narrative The patient is a 57-year-old female with past medical history ovarian cancer and peritoneal carcinomatosis who presents today complaining of abdominal discomfort, back pain and headache. Labs revealed no leukocytosis, anemia or concerning electrolyte abnormalities. CT of the abdomen/pelvis reveals a partial small bowel obstruction. NG tube was placed. General surgery was consulted. Case was discussed with the hospitalist service who agreed to evaluate the patient for further care. Impression & Plan Small bowel obstruction Discharge Plan Visit Data Chief Complaint: Back Injury/Pain Stated Complaint: INTENSIVE PAIN IN LOWER BACK ED Provider: Samuel Mock ED Midlevel Provider: Jessica Gordon Discharge Problem: Small bowel obstruction Patient Disposition: Admitted As Inpatient Discharge Instructions Interventions: ED Discharge Assessment Last Done: 03/06/22 19:50
[2022-03-06 14:50] LABS: Albumin Globulin Ratio 1.4 (0.9-2); Albumin Level 4.1 gm/dl (3.4-5.0); BUN Creatinine Ratio 8.1 (10-20); Bilirubin,Total 0.4 mg/dl (0.2-1.0); Calcium 9.3 mg/dl (8.5-10.1); Creatinine Clr Calc Pharmacy 64.9 ml/min; Est GFR (African American) 117.7 ml/min; Est GFR (Non-African American) 101.5 ml/min; Potassium 3.9 mmol/L (3.5-5.1); Total Protein 7.1 gm/dl (6.0-8.3)
[2022-03-06] MEDS ORDERED: SODIUM CHLORIDE 0.9% 1000ML 1,000 ML IV SCH (14:59)
[2022-03-06 15:42] LABS: Appearance Urine Clear (Clear); Bacteria Urine Automated Negative (Negative); Bilirubin Urine Negative (Negative); Blood Urine Negative (Negative); Color Urine Yellow; Epithelial Cell Urine Auto >30 /lpf (0-5); Glucose Urine UA Negative (Negative); Ketones Urine 1+ (Negative); Leukocyte Esterase Urine 2+ (Negative); Nitrite Urine Negative (Negative); Protein Urine Negative (Negative); RBC Urine Automated 0-4 /hpf (0-4); Specific Gravity Urine 1.018 (1.000-1.030); Urobilinogen Urine Negative (Negative); WBC Urine Automated >30 /hpf (0-5)
[2022-03-06] MEDS ORDERED: OPTIRAY 300 100mL IV ONE (15:56)
--- NOTE | 2022-03-06 16:06 | CT Scan Report ---
CT SCAN OF THE BRAIN WITHOUT IV CONTRAST CLINICAL HISTORY: Headache. History of ovarian cancer. COMPARISON STUDY: MRI of the brain dated 11/04/2020. TECHNIQUE: Unenhanced axial CT scan of the brain is performed from the vertex to the skull base. A d ose lowering technique was utilized adhering to the principles of ALARA. CT DOSE: 537.48 mGy.cm FINDINGS: Brain parenchyma: The brain parenchyma is normal in appearance. There is no hemorrhage, mass effect, or evidence of acute territorial ischemia by CT criteria. Abreu-white matter differentiation is preser don. No extra-axial fluid collection is seen. Ventricles, sulci, cisterns: Normal in configuration. Intracranial vasculature: The visualized intracranial vasculature at the skull base is normal in appe arance. Calvarium: Unremarkable. Sinuses and mastoids: The visualized paranasal sinuses are clear. The mastoid air cells are well pneu matized. Orbits: The bony orbits are grossly intact. IMPRESSION: No acute intracranial abnormality. ACT 112: Negative or not required by law. Electronically signed by: Jonathan Leo M.D. 03/06/2022 4:04 PM
--- NOTE | 2022-03-06 16:15 | CT Scan Report ---
CT SCAN OF THE LUMBAR SPINE WITH IV CONTRAST CLINICAL HISTORY: Low back pain. History of ovarian cancer. COMPARISON STUDY: Abdominal CT dated 02/26/2022. TECHNIQUE: Following the IV administration of 89 cc of Optiray 320, CT scan of the lumbar spine is p erformed from the lower thoracic spine to the sacrum. Images are reviewed in the axial, sagittal, and coronal planes. IV contrast was administered without complication. A dose lowering technique was ut ilized adhering to the principles of ALARA. FINDINGS: The skeletal structures are well mineralized. There is no evidence of fracture or malalignm ent involving the lumbar spine. Vertebral body height and alignment are maintained. The transverse an d spinous processes appear intact. There is no spondylolysis. No lytic or blastic lesion is seen. The disc spaces are maintained. There is no CT evidence of large disc herniation or high-grade central c anal stenosis. The paraspinous soft tissues are normal in appearance. A 6 cm hepatic cyst is partiall y visualized. There is marked dilatation of the stomach and duodenum. The abdominal aorta is normal i n caliber. Abdominal ascites is noted. IMPRESSION: 1. No acute bony abnormality is seen involving the lumbar spine. 2. There is marked distention of the stomach and duodenum as well as abdominal ascites. See report of abdominal CT performed concurrently for detailed intra-abdominal findings. ACT 112: Negative or not required by law. Electronically signed by: Jonathan Leo M.D. 03/06/2022 4:13 PM
[2022-03-06 16:16] LABS: Basophils # (auto) 0.04 K/uL (0-0.2); Basophils % (auto) 0.4 %; Eosinophils # (auto) 0.01 K/uL (0-0.50); Eosinophils % (auto) 0.1 %; Immature Granulocytes # (auto) 0.05 K/uL (0.00-0.02); Immature Granulocytes % (auto) 0.5 %; Lymphocytes # (auto) 0.57 K/uL (1.2-3.4); Lymphocytes % (auto) 6.1 %; Monocytes # (auto) 0.22 K/uL (0.24-0.82); Monocytes % (auto) 2.3 %; Neutrophils # (auto) 8.49 K/uL (1.4-6.5); Neutrophils % (auto) 90.6 %
--- NOTE | 2022-03-06 16:23 | CT Scan Report ---
ABDOMEN AND PELVIS CT WITH IV CONTRAST CT DOSE: 272.17 mGy.cm HISTORY: recent small bowel obstruction, generalized abdominal pain, left back pain TECHNIQUE: Multiaxial CT images of the abdomen and pelvis were performed following the use of intrave nous contrast. A dose lowering technique was utilized adhering to the principles of ALARA. COMPARISON STUDY: Abdomen and pelvis CT 02/26/2022. FINDINGS: The lung bases are clear. No pneumoperitoneum. No pneumatosis. No suspicious lytic or blast ic osseous lesions. There is markedly distended and fluid-filled distal esophagus, stomach, and duode num which has progressed in the interval. There are mild to moderately distended loops of proximal to mid small bowel which taper to normal caliber distally. This has slightly improved compared the prio r study. No clear transition point. The colon is now normal in caliber. Partial bowel resection with a left lower quadrant colostomy is again noted. Small amount of ascites with subtle enhancement of th e peritoneal lining and an 8 mm peritoneal soft tissue nodule within the left lower quadrant image 33 1. This likely corresponds the patient's known radial carcinomatosis. The uterus is surgically absent . The bladder is unremarkable. No retroperitoneal or pelvic lymphadenopathy the kidneys enhance henok lly. No hydronephrosis. The spleen, gallbladder, and pancreas are unremarkable. There are few small h epatic cysts. The main portal vein is patent. There is a left retroaortic renal vein. Normal caliber abdominal aorta. IMPRESSION: 1. Postoperative changes consistent with bowel resection and a left lower quadrant colostomy. The col onic distention has resolved in the interval. 2. Progressive marked distention of the distal esophagus, stomach, and duodenum with slight improveme nt in the mildly distended proximal to mid small bowel loops. The distal small bowel loops demonstrat e a normal caliber. There is no clear transition point. Therefore, this favors a partial small bowel obstruction. An ileus could also have a similar appearance. 3. Redemonstration of the peritoneal carcinomatosis as described above. ACT 112: Negative or not required by law. Electronically signed by: William Jaimes M.D. 03/06/2022 4:22 PM
--- NOTE | 2022-03-06 17:47 | Surgery Consultation ---
Date of Consultation March 06, 2022 Assessment & Plan (1) Small bowel obstruction: Patient with at least a partial small bowel obstruction-at the present time most of her discomfort is likely coming from significantly dilated stomach She would benefit very well from an NG tube Her small bowel is very similar to prior CT scan, her colon is less distended- she has been trying MiraLAX She had relatively good stoma output until today is her oncologic surgeon-he is with [facility] She has benefited from paracentesis in the past and her ascites could be causing some of the discomfort It would be unlikely we would pursue surgical intervention here and most likely she would be transferred To Dr. 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 She does have a history of ascites with paracentesis She was in the hospital last week with significant stool in the colon which apparently did resolve Her CT scan now does show significantly dilated stomach as well as small bowel which is similar to before The colon dilation has resolved relatively well She did not have an NG tube last visit-she was discharged on 03/03/2022 Allergies Allergy/AdvReac Type Severity Reaction Status Date / Time doxycycline Allergy Intermediate RASH Verified 03/06/22 17:42 gluten AdvReac Intermediate Abdominal Verified 03/06/22 17:42 Pain lactose AdvReac Intermediate Abdominal Verified 03/06/22 17:42 Pain Penicillins AdvReac Intermediate Nausea, Verified 03/06/22 17:42 diarrhea Home Medications Medication Instructions Recorded Confirmed Type pantoprazole 40 mg granules 40 mg PO QAM 07/28/19 02/26/22 History delayed-release for susp in packet (Protonix) montelukast 10 mg tablet 10 mg PO QPM 11/05/19 02/26/22 History sertraline 100 mg tablet 200 mg PO QPM 11/05/19 02/26/22 History dapsone 25 mg tablet 25 mg PO BID 04/13/20 02/26/22 History famotidine 20 mg tablet 20 mg PO QAM 04/13/20 02/26/22 History cholecalciferol (vitamin D3) 50 50 mcg PO QAM 05/11/20 02/26/22 History mcg (2,000 unit) capsule fexofenadine 180 mg tablet 180 mg PO HS 05/11/20 02/26/22 History (Liana Allergy) fluticasone propionate 50 1 spray intranasal BID 05/11/20 02/26/22 History mcg/actuation nasal spray,suspension (Flonase Allergy Relief) topiramate 100 mg tablet (Topamax) 100 mg PO QPM 05/11/20 02/26/22 History beclomethasone dipropionate 40 1 inh inhalation QAM 05/12/20 02/26/22 History mcg/actuation HFA breath activated aerosol (Qvar RediHaler) fremanezumab-vfrm 225 mg/1.5 mL 225 mg subcut MONTHLY 05/12/20 02/26/22 History subcutaneous auto-injector (Ajovy) prochlorperazine maleate 5 mg 5 mg PO BID PRN Nausea 05/12/20 02/26/22 History tablet (Compazine) acetaminophen 325 mg tablet 325 mg PO QID PRN Pain 08/13/20 02/26/22 History (Tylenol) plwllmbrubfch-uvksfxdkospodkvztl-yfpzsyzlyxtpu 1 cap PO DAILY PRN MIGRAINES 08/13/20 02/26/22 History capsule ondansetron HCl 4 mg tablet 4 mg PO Q6H PRN Nausea 08/25/21 02/26/22 History Muscle Relaxant Pill 1 tab PO DIRECTED PRN Muscle 03/06/22 History Pain oxycodone-acetaminophen 5 mg-325 tab PO Q4 PRN Pain 03/06/22 History mg tablet Patient History Medical History Anxiety and depression Asthma LAST USED RESCUE INHALER>BEEN A WHILE Bilateral tinnitus Colostomy present Environmental allergies GERD (gastroesophageal reflux disease) Gluten intolerance History of anorexia nervosa History of ileus S/P HYSTERECTOMY Itching REASON FOR DAPSONE Low iron HX IRON INFUSION Migraine Ovarian cancer PRESENT DX>REASON FOR A-PORT (HAS RECIEVED 6 CYCLES OF CHEMO 1 YEAR AGO) Surgical History H/O abdominal surgery AT [facility] 07/20/21 TO REMOVE CANCER IN ABDOMEN/COLON RESECTION WITH COLOSTOMY & INTRAPERITONEAL CHEMO H/O total hysterectomy + REMOVAL OVARIAN CYSTECTOMY History of colonoscopy History of esophagogastroduodenoscopy (EGD) History of knee surgery LEFT PATELLA REPAIR Nausea and vomiting after administration of anesthetic agent Port-A-Cath in place (08/30/21) Insertion Access Port with Fluoroscopy(Right) - Ilan Vee DO 08/30/2021 [place] teeth removed Family History Grandmother (Maternal) Breast cancer Hypertension Grandfather (Maternal) No problems noted. 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 Seatbelt Use: always Sunscreen Use: Yes Assistive Devices: None Review of Systems Review of Systems: All systems reviewed & are unremarkable except as noted in HPI & below Physical Exam Physical Exam: Her abdomen is distended but not rigid She does not have significant abdominal tenderness although some discomfort Constitutional: + ill appearing Cachectic Eyes: + anicteric sclerae Respiratory: normal respiratory effort; no respiratory distress Cardiovascular: Rate/Rhythm: regular rate Gastrointestinal (Abdomen): Inspection/Auscultation: + abdomen distended Musculoskeletal: Head/Neck/Chest: head atraumatic Skin: no rashes, warm and dry Neurologic: awake Psychiatric: Orientation: alert Results & Data ([facility]) Vital Signs (Past 12 Hours) Vital Signs Temp Pulse Pulse Resp BP BP Pulse Ox 03/06/22 14:13 91 H 17 98 03/06/22 14:13 90 17 144/83 H 98 03/06/22 13:22 36.4 C L 108 H 19 156/90 H 96 O2 Del Method 03/06/22 14:13 Room Air 03/06/22 14:13 Room Air 03/06/22 13:22 Room Air Laboratory Results I have reviewed her laboratories Diagnostic Findings I have reviewed her CAT scan and compared to her previous CAT scan PG Care Time/CCT Total # of Minutes Spent Total Time Spent with Patient: Total time spent is greater than 50% in coordination of care (as documented) at patient's floor/unit and/or counseling patient: Coding Level of Care Code 71968 Inpt Consult Level 3 Diagnoses Small bowel obstruction K56.609
--- NOTE | 2022-03-06 18:35 | XRay Report ---
KUB HISTORY: New NG placement COMPARISON: None. FINDINGS: Markedly distended and gas-filled stomach remains unchanged. Contrast within the renal karen ecting systems from the recent CT examination. The partially visualized right Port-A-Cath which demon strates at the SVC. Nasogastric tube terminates at the proximal stomach. The fenestrated line of the nasogastric tube is not located within the stomach. Therefore, this should be advanced by approximate ly 5 to 10 cm. No renal calculi. No ureteral calculi. No pneumoperitoneum or pneumatosis. IMPRESSION: 1. Nasogastric tube terminates at the proximal stomach. The fenestrated line of the nasogastric tube is not located within the stomach. Therefore, this should be advanced by approximately 5 to 10 cm. 2. Persistent gaseous distention of the stomach. ACT 112: Negative or not required by law. Electronically signed by: William Jaimes M.D. 03/06/2022 6:34 PM
--- NOTE | 2022-03-06 19:05 | History & Physical Report ---
Date of Service March 06, 2022 Assessment & Plan (1) Small bowel obstruction: Plan: 57 yo F with PMH ovarian cancer currently receiving chemotherapy, carcinomatosis s/p colectomy with ostomy, ascites with previous paracentesis, KRISTI, MDD, migraines, asthma and recent [facility] hospitalization 02/26-03/03 for large bowel obstruction presenting with increased nausea, abdominal pain, back pain. Partial small bowel obstruction -CTAP with evidence of partial SBO without clear transition point -General surgery consulted on admission- recommend conservative management, NG tube placed -Continue NPO, IVF- LR 100 cc/hr -Strict I's and O's including NG tube and ostomy output -Pain PRNs- Toradol, Tylenol- transition to PO medication as tolerated. 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 Villagran at [facility] -I discussed pt's overall prognosis with her /surrogate decision-maker. Not interested in palliative consultation at this time Depression, anxiety -Holding home Zoloft while NPO -Can consider clamping NG tube to administer Zoloft if pt tolerating as not being able to take her medication gives her considerable distress -Ativan 0.5 mg PRN for acute anxiety Hyponatremia -Mild hyponatremia on admission to 133 -Likely due to poor PO intake from recent LBO and active SBO -Continue IVF -Trend BMP Migraines -Holding home Topamax while NPO -No active migraine at this time -Tylenol, Toradol PRN available for pain GERD -Holding home famotidine and pantoprazole while NPO -Continue pantoprazole 40 mg IV daily- transition to PO as tolerated Asthma -Continue home Qvar inhaler daily, Flonase BID -Holding home Montelukast Infected urinalysis -Urinalysis on admission with high WBCs, leukocyte esterase -Pt denying any urinary symptoms at this time -Avoiding antibiotics at this time, continue to monitor for symptom occurrence FENGI: NPO, LR at 100cc/hr IV: IV medication/fluids to be given through pt's chemotherapy port rather than peripheral IV Code status: Full DVT ppx: Lovenox 30 mg daily Isolation: None Dispo: Medical/surgical (2) Anxiety and depression: (3) GERD (gastroesophageal reflux disease): (4) Ovarian cancer: (5) Asthma: History of Present Illness Chief Complaint: Abdominal pain Primary Care Provider: Saida Senior MD 57 yo F with PMH ovarian cancer currently receiving chemotherapy, carcinomatosis s/p colectomy with ostomy, ascites with previous paracentesis, KRISTI, MDD, migraines, asthma and recent [facility] hospitalization 02/26-03/03 for large bowel obstruction presenting with increased nausea, abdominal pain, back pain. Pt discharged from hospital on 03/03 after resolution of LBO with conservative management. Notes since discharge, her upper-central abdominal pain has continued and nausea failed to resolve with PRN Zofran. Has had largely constant nausea but without any episodes of emesis. This morning, pt awoke with severe L lower back pain and migraine. Pt has also experienced significant psychosocial distress but no acute suicidality during this time and feels it may be due to not receiving her Zoloft and Topamax while hospitalized last week. Does not note any changes in ostomy output during this time. She denies any fever, chills, chest pain, dyspnea, diarrhea, constipation. Upon arrival, vitals notable for slightly elevated BP 150s/90s and 140s/80s. Afebrile, HRs 90s-low 100s, no tachypnea or hypoxia. Labs notable for mild hyponatremia to 133, urinalysis with high WBCs, leukocyte esterase. Lipase wnl. Multiple imaging studies performed in ED -Head CT, lumbar spine CT normal -CTAP demonstrating resolution of colonic distention from previous LBO but new marked distention of stomach and duodenum, dilated bowel loops without clear transition point suggestive of partial SBO Pt given 1L NSS bolus in ED, along with Dilaudid 0.25 mg IV for pain, Zofran 4 mg IV for nausea. General surgery consulted with recommendation for NG tube, subsequent KUB demonstrated NG tube not reaching bowel- requiring advancement 5- 10 cm. Allergies Allergy/AdvReac Type Severity Reaction Status Date / Time doxycycline Allergy Intermediate RASH Verified 03/06/22 17:42 gluten AdvReac Intermediate Abdominal Verified 03/06/22 17:42 Pain lactose AdvReac Intermediate Abdominal Verified 03/06/22 17:42 Pain Penicillins AdvReac Intermediate Nausea, Verified 03/06/22 17:42 diarrhea Home Medications Medication Instructions Recorded Confirmed Type pantoprazole 40 mg granules 40 mg PO QAM 07/28/19 03/06/22 History delayed-release for susp in packet (Protonix) montelukast 10 mg tablet 10 mg PO QPM 11/05/19 03/06/22 History sertraline 100 mg tablet 200 mg PO QPM 11/05/19 03/06/22 History dapsone 25 mg tablet 25 mg PO BID 04/13/20 03/06/22 History famotidine 20 mg tablet 20 mg PO QAM 04/13/20 03/06/22 History cholecalciferol (vitamin D3) 50 50 mcg PO QAM 05/11/20 03/06/22 History mcg (2,000 unit) capsule fexofenadine 180 mg tablet 180 mg PO HS 05/11/20 03/06/22 History (Liana Allergy) fluticasone propionate 50 1 spray intranasal BID 05/11/20 03/06/22 History mcg/actuation nasal spray,suspension (Flonase Allergy Relief) topiramate 100 mg tablet (Topamax) 100 mg PO QPM 05/11/20 03/06/22 History beclomethasone dipropionate 40 1 inh inhalation QAM 05/12/20 03/06/22 History mcg/actuation HFA breath activated aerosol (Qvar RediHaler) fremanezumab-vfrm 225 mg/1.5 mL 225 mg subcut MONTHLY 05/12/20 03/06/22 History subcutaneous auto-injector (Ajovy) prochlorperazine maleate 5 mg 5 mg PO BID PRN Nausea 05/12/20 03/06/22 History tablet (Compazine) acetaminophen 325 mg tablet 325 mg PO QID PRN Pain 08/13/20 03/06/22 History (Tylenol) iaawvdsgteuey-ufhuacqdokzwrsjhhp-wqrzgbrzeamco 1 cap PO DAILY PRN MIGRAINES 08/13/20 03/06/22 History capsule ondansetron HCl 4 mg tablet 4 mg PO Q6H PRN Nausea 08/25/21 03/06/22 History Muscle Relaxant Pill 1 tab PO DIRECTED PRN Muscle 03/06/22 03/06/22 History Pain oxycodone-acetaminophen 5 mg-325 1 tab PO Q4 PRN Pain 03/06/22 03/06/22 History mg tablet Past Med/Surg History Medical History Anxiety and depression Asthma LAST USED RESCUE INHALER>BEEN A WHILE Bilateral tinnitus Colostomy present Environmental allergies GERD (gastroesophageal reflux disease) Gluten intolerance History of anorexia nervosa History of ileus S/P HYSTERECTOMY Itching REASON FOR DAPSONE Low iron HX IRON INFUSION Migraine Ovarian cancer PRESENT DX>REASON FOR A-PORT (HAS RECIEVED 6 CYCLES OF CHEMO 1 YEAR AGO) Surgical History H/O abdominal surgery AT [facility] 07/20/21 TO REMOVE CANCER IN ABDOMEN/COLON RESECTION WITH COLOSTOMY & INTRAPERITONEAL CHEMO H/O total hysterectomy + REMOVAL OVARIAN CYSTECTOMY History of colonoscopy History of esophagogastroduodenoscopy (EGD) History of knee surgery LEFT PATELLA REPAIR Nausea and vomiting after administration of anesthetic agent Port-A-Cath in place (08/30/21) Insertion Access Port with Fluoroscopy(Right) - Ilan Vee DO 08/30/2021 [place] teeth removed Family History Grandmother (Maternal) Breast cancer Hypertension Grandfather (Maternal) No problems noted. 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 Seatbelt Use: always Sunscreen Use: Yes Assistive Devices: None Review of Systems Review of Systems: Per HPI Physical Exam Physical Exam: Constitutional: well-appearing, no acute distress HEENT: NCAT, no conjunctival injection, no scleral icterus CV: regular rhythm, no murmur appreciated, extremities well-perfused, no LE edema Resp: CTAB, no wheezes/rales/rhonchi appreciated, no increased work of breathing GI: soft, slight distention with mild firmness diffusely, mild tenderness to palpation of epigastrium without rebound or guarding, higher-pitched bowel sounds in 4x quadrants MSK: no gross deformities appreciated Skin: abdominal ostomy site noted, no surrounding erythema, edema, exudate, or warmth to touch Neuro: alert, oriented, no focal neurologic deficits appreciated Results & Data Results & Data ([facility]) Vital Signs (Past 12 Hours) Vital Signs Temp Pulse Pulse Resp BP BP Pulse Ox 03/06/22 18:42 88 16 129/88 97 03/06/22 14:13 91 H 17 98 03/06/22 14:13 90 17 144/83 H 98 03/06/22 13:22 36.4 C L 108 H 19 156/90 H 96 O2 Del Method 03/06/22 18:42 Room Air 03/06/22 14:13 Room Air 03/06/22 14:13 Room Air 03/06/22 13:22 Room Air Code Status & VTE Plan VTE Prophylaxis Plan VTE Prophylaxis will be ordered: Yes Supervising Physician Co-Signing Physician Notes I supervised Barbie Leung MD on this admission. I interviewed and examined the patient independently of him. The plan is as written in the note except for any following changes/exceptions: None 57yo F w/ hx of ovarian cancer and peritoneal carcinomatosis who presents with partial SBO. Was recently admitted with large bowel obstruction, and patient felt she advanced her diet too quickly. Patient with NG tube in place, but will need to be advanced. Surgery will follow. Presently no acute surgical need. Patient and decline palliative at this time, but I do not see overall improvement in her quality of life. Resident Activity Tracking Resident Involvement: Resident Care Provided Care Provided: Adult Hospital Medicine (1) Ovarian cancer Laterality: unspecified laterality Qualified Code(s): C56.9 - Malignant neoplasm of unspecified ovary
--- NOTE | 2022-03-06 19:32 | XRay Report ---
KUB HISTORY: NG placement COMPARISON: None. FINDINGS: The nasogastric tube is been advanced and now resides at the expected location of the dista l stomach. There is moderate gaseous distention of the stomach which has slightly improved. The lung bases are clear. Partially visualized right Port-A-Cath which terminates at the SVC. No renal calcul i. No ureteral calculi. No pneumoperitoneum or pneumatosis. IMPRESSION: The nasogastric tube has been advanced and now resides at the expected location of the distal stomach . ACT 112: Negative or not required by law. Electronically signed by: William Jaimes M.D. 03/06/2022 7:31 PM
--- NOTE | 2022-03-06 19:38 | XRay Report ---
KUB HISTORY: NG tube placement. COMPARISON: KUB 03/06/2022. FINDINGS: A nasogastric tube terminates in the body the stomach. The fenestrated line is located at t he gastroesophageal junction. Moderate gaseous distention of the stomach persists. The lung bases are clear. Right Port-A-Cath terminates at the SVC. No renal calculi. No ureteral calculi. No pneumoper itoneum or pneumatosis. IMPRESSION: The nasogastric tube terminates at the body the stomach. The fenestrated line is located at the gastr oesophageal junction. This could be advanced by one to 2 cm. ACT 112: Negative or not required by law. Electronically signed by: William Jaimes M.D. 03/06/2022 7:36 PM
[2022-03-06] MEDS ORDERED: LORazepam 2 MG/1 ML VIAL IV PRN (19:44)
[2022-03-06] MEDS ORDERED: ACETAMINOPHEN 1000 MG/100 ML IV IV PRN (19:44)
[2022-03-06] MEDS ORDERED: KETOROLAC TROMETHAMINE 15 MG/ML VIAL ONE (19:55)
--- NOTE | 2022-03-06 20:16 | Billing Data ---
Date of Service March 06, 2022 Coding Level of Care Code 71326 Initial Inpt Care Lvl 3
[2022-03-06] MEDS: LACTATED RINGER'S 1,000 ML IV SCH (20:34)
[2022-03-06] MEDS: CHLORASEPTIC 1.4% SOLN 180 ML BTL MT PRN (20:34)
[2022-03-06] MEDS ORDERED: ACETAMINOPHEN 65 ML IV PRN (20:39)
[2022-03-07] MEDS: ENOXAPARIN INJ 30 MG/0.3 ML SYR SQ SCH ×2 (00:26→20:42)
[2022-03-07] MEDS: FLUTICASONE PROPIONATE NA SPR 16 GM BTL SCH ×3 (00:28→20:42)
[2022-03-07] MEDS ORDERED: LORazepam 1 mg IV INJ IV PRN (01:31)
[2022-03-07] MEDS: LORazepam 1 MG in SYRINGE 0.5 ML IV PRN ×3 (01:40→22:51)
[2022-03-07] MEDS: METOCLOPRAMIDE HCL INJ 5 MG/ML 2 ML VIAL IV PRN (06:33)
[2022-03-07] MEDS: LACTATED RINGER'S 1,000 ML IV SCH ×2 (06:33→17:31)
--- NOTE | 2022-03-07 06:58 | Surgery Progress Note ---
Date of Service March 07, 2022 Assessment & Plan (1) Small bowel obstruction: Plan: Some improvement with NG decompression Would continue the same for now We will possibly add some senna syrup and mineral oil tomorrow Ice as tolerated Supportive care Only additional symptomatic help may be paracentesis Admission and Anticipated Discharge Date Admission Date: March 06, 2022 Subjective Patient is awake and alert no distress Not complaining of significant abdominal pain NG tube in place draining bilious fluid-initially had significant amount Review of Systems Review of Systems: All systems reviewed & are unremarkable except as noted in HPI & below Physical Exam Physical Exam: Her abdomen is distended but not rigid She does not have significant abdominal tenderness although some discomfort Constitutional: + ill appearing Cachectic Eyes: + anicteric sclerae Respiratory: normal respiratory effort; no respiratory distress Cardiovascular: Rate/Rhythm: regular rate Gastrointestinal (Abdomen): Inspection/Auscultation: + abdomen distended Distended but less distended than yesterday Musculoskeletal: Head/Neck/Chest: head atraumatic Skin: no rashes, warm and dry Neurologic: awake Psychiatric: Orientation: alert Results & Data ([facility]) Vital Signs (Past 12 Hours) Vital Signs Temp Pulse Resp BP Pulse Ox O2 Del Method 03/06/22 20:50 Room Air 03/06/22 20:50 Room Air 03/06/22 20:50 36.7 C 78 14 134/81 97 Room Air 03/06/22 21:10 36.7 C 78 14 134/81 97 Room Air 03/06/22 20:40 88 16 137/81 100 Room Air 03/06/22 19:30 84 16 141/88 H 98 PG Care Time/CCT Total # of Minutes Spent Total Time Spent with Patient: Total time spent is greater than 50% in coordination of care (as documented) at patient's floor/unit and/or counseling patient: Coding Level of Care Code 77115 Inpt Consult Level 3 Diagnoses Small bowel obstruction K56.609
--- NOTE | 2022-03-07 07:29 | Hospitalist Progress Note ---
Date of Service March 07, 2022 Assessment & Plan (1) Small bowel obstruction: Plan: Muriel is a 57 year old female with hx of ovarian cancer on chemotherapy, carcinomatosis s/p colectomy with ostomy, ascites requiring previous paracentesis, KRISTI, MDD, migraines, and asthma. Currently admitted for partial SBO and being managed with NGT and NPO. 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 Villagran at [facility] and Dr. Maldonado/Sravani Lemons at [facility] - Implications of small bowel obstruction in the setting of ovarian cancer discussed with patient Depression, anxiety - Holding home Zoloft while NPO (wants to re-initiate as soon as possible) - Ativan 0.5 mg PRN for acute anxiety Hyponatremia (133) - Considered 2/2 poor PO intake a/w recent LBO and current SBO - Continue IVF - Trend BMP Migraines - Holding home Topamax while NPO GERD - Continue pantoprazole 40 mg IV daily- transition to PO as tolerated Asthma - Continue home Qvar inhaler daily, Flonase BID - Holding home Montelukast (2) Anxiety and depression: (3) GERD (gastroesophageal reflux disease): (4) Ovarian cancer: (5) Asthma: Plan FEN: NPO, LR at 100cc/hr IV: IV medication/fluids to be given through pt's chemotherapy port rather than peripheral IV Code status: Full DVT ppx: Lovenox 30 mg daily Isolation: None Dispo: Medical/surgical Admission and Anticipated Discharge Date Admission Date: March 06, 2022 Supervising Physician Co-Signing Physician Notes I personally examined the patient and verified all francis points of history and exam, discussed case, and agree with decision making with Dr Owens pain and nausea better - but NG with significant drainage never really got to able to eat much real food when she got home vitals noted nad heent nc at mmm abd soft nd nt no guarding no rebound no rigidity SBO - recurrent. concern about ?adhesional vs carinomatosis as nidus. continue NGT and supportive care. follow - once able to advance diet will need to follow for tolerability - if can't - then concern on cancer would be higher DVT proph - lovenox Subjective Muriel is a 57 year old female with hx of ovarian cancer on chemotherapy, carcinomatosis s/p colectomy with ostomy, ascites requiring previous paracentesis, KRISTI, MDD, migraines, and asthma. Patient was recently hospitalized at [facility] 02/26-03/03 for large bowel obstruction and presented 03/06 with increased nausea, abdominal pain, back pain. She is admitted presently for a partial small bowel obstruction. Today 03/07/22: - Patient is resting comfortably - NGT in place - patient notes throat soreness 2/2 tube, tube continues to drain bilious fluid - Last ostomy output morning of 03/06 - Denies abdominal pain and bloating, nausea improved, no emesis - Patient denies any fevers, headaches, chest pain, or shortness of breath - Notes NGT continues to consistently drain bilious fluid Patient is tolerating NGT and NPO at this time. Review of Systems Review of Systems: Per HPI Physical Exam Physical Exam: Gen: NAD, alert, interactive, cachectic HEENT: Supple, no LAD, no thyromegaly, no JVD, NGT in right nare Resp:Non-labored, no wheezing/rhonchi/rales, CTAB CV:RRR, normal S1/S2, no M/R/G Abd: Soft, non-distended, no TTP, hypoactive bowels, no masses, no rebound or guarding, ostomy in LLQ Extr: 2+ dp bilaterally, no edema Skin: No rashes lesions or erythema Results & Data Results & Data ([facility]) Vital Signs (Past 12 Hours) Vital Signs Temp Pulse Resp BP Pulse Ox O2 Del Method 03/06/22 20:50 Room Air 03/06/22 20:50 Room Air 03/06/22 20:50 36.7 C 78 14 134/81 97 Room Air 03/06/22 21:10 36.7 C 78 14 134/81 97 Room Air 03/06/22 20:40 88 16 137/81 100 Room Air 03/06/22 19:30 84 16 141/88 H 98 Diagnostic Findings CTAP 03/06/22 1. Post-op changes consistent with bowel resection and a left lower quadrant colostomy. The colonic distention has resolved in the interval. 2. Progressive marked distention of the distal esophagus, stomach, and duodenum with slight improvement in the mildly distended proximal to mid small bowel loops. The distal small bowel loops demonstrate a normal caliber. There is no clear transition point. Therefore, this favors a partial small bowel obstruction. An ileus could also have a similar appearance. 3. Redemonstration of the peritoneal carcinomatosis as described above. Resident Activity Tracking Resident Involvement: Resident Care Provided Care Provided: Adult Hospital Medicine (1) Ovarian cancer Laterality: unspecified laterality Qualified Code(s): C56.9 - Malignant neoplasm of unspecified ovary
[2022-03-07] MEDS: FLUTICASONE FUROATE 100MCG 14 PUFFS/INHALER INH SCH (07:48)
[2022-03-07 08:01] LABS: Basophils # (auto) 0.04 K/uL (0-0.2); Basophils % (auto) 0.6 %; Eosinophils # (auto) 0.01 K/uL (0-0.50); Eosinophils % (auto) 0.2 %; Hematocrit (blood only) 30.3 % (34.1-44.9); Immature Granulocytes # (auto) 0.02 K/uL (0.00-0.02); Immature Granulocytes % (auto) 0.3 %; Lymphocytes # (auto) 0.75 K/uL (1.2-3.4); Lymphocytes % (auto) 12.1 %; Mean Corpuscular Hemoglobin 31.4 pg (25.0-34.0); Mean Corpuscular Volume 95.3 fL (80.0-100.0); Mean Platelet Volume 9.5 fL (9.4-12.3); Monocytes # (auto) 0.17 K/uL (0.24-0.82); Monocytes % (auto) 2.7 %; Neutrophils # (auto) 5.23 K/uL (1.4-6.5); Neutrophils % (auto) 84.1 %; Platelet Count 231 K/uL (130-400); RDW Coefficient of Variation 14.2 % (11.5-14.5); RDW Standard Deviation 48.9 fL (36.4-46.3); Red Blood Count 3.18 M/uL (3.93-5.22); White Blood Count 6.22 K/ul (4.8-10.8)
[2022-03-07 08:34] LABS: Albumin Globulin Ratio 1.5 (0.9-2); Albumin Level 3.2 gm/dl (3.4-5.0); BUN Creatinine Ratio 11.1 (10-20); Bilirubin,Total 0.5 mg/dl (0.2-1.0); Calcium 8.6 mg/dl (8.5-10.1); Creatinine Clr Calc Pharmacy 80.3 ml/min; Est GFR (African American) 123.1 ml/min; Est GFR (Non-African American) 106.2 ml/min; Globulin 2.2 gm/dl (2.5-4.0); Potassium 3.5 mmol/L (3.5-5.1); Total Protein 5.4 gm/dl (6.0-8.3)
[2022-03-07] MEDS: KETOROLAC TROMETHAMINE 15 MG/ML VIAL IV PRN ×2 (10:22→20:43)
[2022-03-07] MEDS ORDERED: PANTOprazole 40 MG in SYRINGE 0 ML IV SCH (11:00)
[2022-03-07] MEDS ORDERED: DEXTROSE 50% 50 ML SYRINGE IV PRN ×2 (14:49→15:00)
[2022-03-07] MEDS ORDERED: DEXTROSE 50% 50 ML SYRINGE IV ONE (14:52)
[2022-03-07] MEDS ORDERED: GLUCOSE 40% GEL 15 GM TUBE PO PRN (15:00)
[2022-03-07] MEDS ORDERED: GLUCAGON FOR INJ 1 MG VIAL IM PRN (15:00)
[2022-03-07] MEDS ORDERED: GLUCOSE 10 TAB/TUBE PO PRN (15:00)
[2022-03-07] MEDS ORDERED: CARBOHYDRATES FOR HYPOGLYCEMIA PO PRN (15:00)
--- NOTE | 2022-03-07 18:56 | Billing Data ---
Date of Service March 07, 2022 Coding Level of Care Code 65568 Subseq Hosp Care Lvl 3
[2022-03-08] MEDS: LACTATED RINGER'S 1,000 ML IV SCH (03:33)
[2022-03-08 06:08] LABS: Basophils # (auto) 0.02 K/uL (0-0.2); Basophils % (auto) 0.6 %; Eosinophils # (auto) 0.04 K/uL (0-0.50); Eosinophils % (auto) 1.2 %; Hematocrit (blood only) 28.3 % (34.1-44.9); Hemoglobin 9.4 g/dl (12.0-16.0); Immature Granulocytes # (auto) 0.01 K/uL (0.00-0.02); Immature Granulocytes % (auto) 0.3 %; Lymphocytes # (auto) 0.93 K/uL (1.2-3.4); Lymphocytes % (auto) 28.1 %; Mean Corpuscular Hemoglobin 32.1 pg (25.0-34.0); Mean Corpuscular Hgb Conc 33.2 g/dL (32.0-36.0); Mean Corpuscular Volume 96.6 fL (80.0-100.0); Mean Platelet Volume 9.8 fL (9.4-12.3); Monocytes # (auto) 0.13 K/uL (0.24-0.82); Monocytes % (auto) 3.9 %; Neutrophils # (auto) 2.18 K/uL (1.4-6.5); Neutrophils % (auto) 65.9 %; Platelet Count 212 K/uL (130-400); RDW Coefficient of Variation 14.4 % (11.5-14.5); RDW Standard Deviation 49.7 fL (36.4-46.3); Red Blood Count 2.93 M/uL (3.93-5.22); White Blood Count 3.31 K/ul (4.8-10.8)
[2022-03-08 06:31] LABS: Albumin Globulin Ratio 1.3 (0.9-2); BUN Creatinine Ratio 18.2 (10-20); Bilirubin,Total 0.4 mg/dl (0.2-1.0); Calcium 8.6 mg/dl (8.5-10.1); Creatinine Clr Calc Pharmacy 78.9 ml/min; Est GFR (African American) 122.4 ml/min; Est GFR (Non-African American) 105.6 ml/min; Globulin 2.3 gm/dl (2.5-4.0); Potassium 3.1 mmol/L (3.5-5.1); Total Protein 5.3 gm/dl (6.0-8.3)
[2022-03-08] MEDS ORDERED: MINERAL OIL 30 ML UDC PO ONE (07:16)
--- NOTE | 2022-03-08 07:16 | Surgery Progress Note ---
Date of Service March 08, 2022 Assessment & Plan (1) Small bowel obstruction: Plan: Patient with significant NG output Less distended-I do not think we should remove her NG tube yet There is no plan for surgical intervention here-May consider discussion with her unk surgeon [facility] She did call their office yesterday and they said they would discussed with him her situation Surgical intervention will likely not improve her overall progress Sometimes a PEG tube for intermittent decompression is possible but aggressive Paracentesis may help in the short-term We will try some senna syrup and mineral oil with NG clamping Also may consider contrast study via CT scan giving the contrast via her NG tube Admission and Anticipated Discharge Date Admission Date: March 06, 2022 Subjective Minimal pain Her NG output is relatively significant at 2200 per 24 hours-some ice chips Review of Systems Review of Systems: All systems reviewed & are unremarkable except as noted in HPI & below Physical Exam Physical Exam: Awake and alert Her abdomen is much less distended-some bowel sounds She does not have significant abdominal tenderness although some discomfort Constitutional: + ill appearing Cachectic Eyes: + anicteric sclerae Respiratory: normal respiratory effort; no respiratory distress Cardiovascular: Rate/Rhythm: regular rate Gastrointestinal (Abdomen): Inspection/Auscultation: + abdomen distended Distended but less distended than yesterday Musculoskeletal: Head/Neck/Chest: head atraumatic Skin: no rashes, warm and dry Neurologic: awake Psychiatric: Orientation: alert Results & Data ([facility]) Vital Signs (Past 12 Hours) Vital Signs Temp Pulse Resp BP Pulse Ox O2 Del Method 03/07/22 22:56 36.7 C 98 H 16 113/72 95 Room Air PG Care Time/CCT Total # of Minutes Spent Total Time Spent with Patient: Total time spent is greater than 50% in coordination of care (as documented) at patient's floor/unit and/or counseling patient: Coding Level of Care Code 00370 Inpt Consult Level 3 Diagnoses Small bowel obstruction K56.609
--- NOTE | 2022-03-08 07:19 | Hospitalist Progress Note ---
Date of Service March 08, 2022 Assessment & Plan (1) Small bowel obstruction: Plan: Muriel is a 57 year old female with hx of ovarian cancer on chemotherapy, carcinomatosis s/p colectomy with ostomy, ascites requiring previous paracentesis, KRISTI, MDD, migraines, and asthma. Currently admitted for partial SBO and being managed with NGT and NPO. Partial SBO - CTAP with evidence of partial SBO and sx consistent with SBO (abdominal pain, bloating, nausea) - General Surgery * Recommended against NGT removal at this time, no surgical intervention planned, gave patient senna syrup and mineral oil, mentioned consideration of contrast CT scan w/ contrast via NGT - Conversed with patient's oncologist who agree with conservative management at this time - Continue NPO, continue D5 1/2 NS at 100 mls/hr, and strict I's and O's (including NG tube and ostomy output) - Hypokalemia (3.1) - repleted, will recheck in AM - PRNs- Toradol, Tylenol, Reglan - Trend CBC, CMP Ovarian Cancer - 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 Villagran at [facility] and Dr. Maldonado/Sravani Lemons at [facility] - Implications of small bowel obstruction in the setting of ovarian cancer discussed with patient Depression, Anxiety - Holding home Zoloft while NPO (wants to re-initiate as soon as possible) - Ativan 0.5 mg PRN for acute anxiety Hyponatremia - Resolved, considered 2/2 poor PO intake a/w recent LBO and current SBO - Continue IVF - Trend CMP Migraines - Holding home Topamax while NPO GERD - Continue pantoprazole 40 mg IV BID - transition to PO as tolerated - Added Pepcid daily PRN Asthma - Continue home Qvar inhaler daily, Flonase BID - Holding home Montelukast (2) Anxiety and depression: (3) GERD (gastroesophageal reflux disease): (4) Ovarian cancer: (5) Asthma: Plan FEN: NPO, LR at 100cc/hr IV: IV medication/fluids to be given through pt's chemotherapy port rather than peripheral IV Code status: Full DVT ppx: Lovenox 30 mg daily Isolation: None Dispo: Medical/surgical Admission and Anticipated Discharge Date Admission Date: March 06, 2022 Supervising Physician Co-Signing Physician Notes I personally examined the patient and verified all francis points of history and exam, discussed case, and agree with decision making with Dr Owens NG tube was displaced earlier today, and disconnected from suction nowwhile it sounds like there was rather significant output when suction was turned back on, she did not notice any significant increase in pain, nausea, or bloating during that time. She is eating about 5 ice chips an hour without difficulty. vitals noted nad heent nc at mmm abd soft nd nt no guarding no rebound no rigidi ty SBO - recurrent. concern about ?adhesional vs carinomatosis as nidus. continue NGT (currently off suctionoutput has been concerning, but the fact that she is not feeling worse when its off suction is a bit reassuring) and supportive care. follow - once able to advance diet will need to follow for tolerability - if can't - then concern on cancer would be higher. Appreciate surgery input, d maddiussed with hematology oncology myself, resident physician discussed with surgical oncologyentire team approaching her situation largely from the same perspective. Recurrent hypoglycemiaindicative of her severe protein calorie malnutritionfor now added dextrose to IV fluidsdepending on her progress and her overall goals of care, if an aggressive approach is to be continued, then may need to consider TPN. DVT proph - lovenox Subjective Muriel is a 57 year old female with hx of ovarian cancer on chemotherapy, carcinomatosis s/p colectomy with ostomy, ascites requiring previous paracentesis, KRISTI, MDD, migraines, and asthma. Patient was recently hospitalized at [facility] 02/26-03/03 for large bowel obstruction and presented 03/06 with increased nausea, abdominal pain, back pain. She is admitted presently for a partial small bowel obstruction. Today 03/08/22: - Patient resting comfortably - Acutely concerned for symptoms of reflux and requesting something to combat it - NGT remains in place, displaced overnight, re-advanced and imaged in AM - Patient did not note worsening of symptoms (abdominal pain/pressure) without NGT active - Last ostomy output 03/06 (morning) - Denies abdominal pain and bloating, minimal nausea, no emesis - Patient denies any fevers, headaches, chest pain, or shortness of breath Patient is tolerating NGT and NPO at this time. Review of Systems Review of Systems: Per HPI Physical Exam Physical Exam: Gen: NAD, alert, interactive, cachectic HEENT: Supple, no LAD, no thyromegaly, no JVD, NGT in right nare Resp:Non-labored, no wheezing/rhonchi/rales, CTAB CV:RRR, normal S1/S2, no M/R/G Abd: Soft, non-distended, no TTP, hypoactive bowels, no masses, no rebound or guarding, ostomy in LLQ Extr: 2+ dp bilaterally, no edema Skin: No rashes lesions or erythema Results & Data Results & Data ([facility]) Vital Signs (Past 12 Hours) Vital Signs Temp Pulse Resp BP Pulse Ox O2 Del Method 03/07/22 22:56 36.7 C 98 H 16 113/72 95 Room Air Resident Activity Tracking Resident Involvement: Resident Care Provided Care Provided: Adult Hospital Medicine (1) Ovarian cancer Laterality: unspecified laterality Qualified Code(s): C56.9 - Malignant neoplasm of unspecified ovary
[2022-03-08] MEDS ORDERED: FAMOTIDINE 20 MG in SYRINGE 3 ML IV PRN (07:38)
[2022-03-08] MEDS: FLUTICASONE FUROATE 100MCG 14 PUFFS/INHALER INH SCH (09:14)
[2022-03-08] MEDS: POTASSIUM CHLORIDE / WTR 10 MEQ/100 ML PLCT IV SCH ×4 (09:14→12:38)
[2022-03-08] MEDS: FLUTICASONE PROPIONATE NA SPR 16 GM BTL SCH ×2 (09:14→21:18)
[2022-03-08] MEDS: PANTOprazole 40 MG in SYRINGE 0 ML IV SCH ×2 (09:15→21:16)
[2022-03-08] MEDS: METOCLOPRAMIDE HCL INJ 5 MG/ML 2 ML VIAL IV PRN (09:15)
--- NOTE | 2022-03-08 10:02 | XRay Report ---
KUB CLINICAL HISTORY: Enteric tube placement. FINDINGS: An AP, portable, supine abdominal radiograph is compared to study abdominal CTA radiographs dated 03/06/2022. An enteric tube is in place. The tip projects over the mid to distal stomach. There is moderate gaseous distention of the stomach. Distended loops of small bowel are similar to previou s. No evidence of intraperitoneal free air is seen on this supine image. There are no abnormal abdomi nal calcifications. Suture material, surgical clips, and focal stenosis of the pelvis. The bony struc tures appear intact. IMPRESSION: 1. An enteric tube is in place as above. 2. There is persistent dilatation of the bowel loops. Obstruction is not excluded. Electronically signed by: Jonathan Leo M.D. 03/08/2022 9:59 AM
[2022-03-08] MEDS: SENNOSIDES 8.8 MG/5 ML UDC PO SCH ×2 (10:46→21:19)
[2022-03-08] MEDS: CHLORASEPTIC 1.4% SOLN 180 ML BTL MT PRN (10:47)
[2022-03-08] MEDS: D5W AND 1/2NSS + 20MEQ KCL 20 MEQ/1,000 ML BAG IV SCH ×2 (11:36→21:14)
[2022-03-08] MEDS: LORazepam 1 MG in SYRINGE 0.5 ML IV PRN ×2 (14:13→21:25)
--- NOTE | 2022-03-08 18:42 | Billing Data ---
Date of Service March 08, 2022 Coding Level of Care Code 85915 Subseq Hosp Care Lvl 3
[2022-03-08] MEDS: KETOROLAC TROMETHAMINE 15 MG/ML VIAL IV PRN (21:14)
[2022-03-08] MEDS: ENOXAPARIN INJ 30 MG/0.3 ML SYR SQ SCH (21:19)
[2022-03-09] MEDS ORDERED: DEXTROSE 10% 1,000 ML IV PRN (07:21)
[2022-03-09] MEDS: D5W AND 1/2NSS + 20MEQ KCL 20 MEQ/1,000 ML BAG IV SCH ×2 (07:22→16:35)
--- NOTE | 2022-03-09 07:22 | Hospitalist Progress Note ---
Date of Service March 09, 2022 Assessment & Plan (1) Small bowel obstruction: Plan: Muriel is a 57 year old female with hx of ovarian cancer on chemotherapy, carcinomatosis s/p colectomy with ostomy, ascites requiring previous paracentesis, KRISTI, MDD, migraines, and asthma. Currently admitted for partial SBO and being managed with NGT and NPO. Partial SBO - CTAP with evidence of partial SBO and sx consistent with SBO (abdominal pain, bloating, nausea) - General Surgery * Plans to progressively clamp NGT for longer periods of time prior to removal * Ordered TPN as patient has not consumed sufficient PO intake for > 1 week - Conversed with patient's oncologist who agree with conservative management at this time - Continue NPO and strict I's and O's (including NG tube and ostomy output) - Hypokalemia - repleted, will monitor - Hypomagnesemia - repleted, will monitor - PRNs- Toradol, Tylenol, Reglan, Lidocaine (throat), Afrin (nares) - Trend CBC, CMP Hypoglycemia - Likely 2/2 severe protein calorie malnutrition - Adjusted fluids to D5 1/2 NS at 80 mls/hr 03/09 - Surgery initiating TPN Ovarian Cancer - 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 Villagran at [facility] and Dr. Maldonado/Sravani Lemons at [facility] - Implications of small bowel obstruction in the setting of ovarian cancer discussed with patient Depression, Anxiety - Holding home Zoloft while NPO (wants to re-initiate as soon as possible) - Ativan 0.5 mg PRN for acute anxiety Hyponatremia - Resolved, considered 2/2 poor PO intake a/w recent LBO and current SBO - Continue IVF - Trend CMP Migraines - Holding home Topamax while NPO GERD - Continue pantoprazole 40 mg IV BID - transition to PO as tolerated - Added Pepcid daily PRN Asthma - Continue home Qvar inhaler daily, Flonase BID - Holding home Montelukast (2) Anxiety and depression: (3) GERD (gastroesophageal reflux disease): (4) Ovarian cancer: (5) Asthma: Plan FEN: NPO, TPN IV: IV meds through port Code status: Full DVT ppx: Lovenox 30 mg daily Isolation: None Dispo: Medical/Surgical Admission and Anticipated Discharge Date Admission Date: March 06, 2022 Supervising Physician Co-Signing Physician Notes I personally examined the patient and verified all francis points of history and exam, discussed case, and agree with decision making with Dr Owens NG clamped for about 6 hoursshe notes that she had no abdominal bloating or pain, no nausea, epigastric burning, reflux type feelings. She does note that the NG tube is a bit bothersome irritating her throat and causing a runny nose. She notes that she feels very hungry. She has had some ostomy throughput today. vitals noted nad heent nc at mmm abd soft nd nt no guarding no rebound no rigidity SBO - recurrent. concern about ?adhesional vs carinomatosis as nidus. Cautiously promising that she was able to tolerate 6 hours off of the NG tube with really no symptoms, and she feels hungry. Whenever NG was turned back on there was about 200 mL in the canister. While it is probably too soon to truly advance her diet, we discussed giving a trial of a small amount of clear liquids later today (roughly something on the order of 1 Jell-O and 1 small cup of teagiven that if she has pain bloating nausea etc.we could put the NG tube right back up, but if she does not it could be a harbinger of improvement). Recurrent hypoglycemiaindicative of her severe protein calorie malnutritionTPN as ordered by surgery DVT proph - lovenox Subjective Muriel is a 57 year old female with hx of ovarian cancer on chemotherapy, carcinomatosis s/p colectomy with ostomy, ascites requiring previous paracentesis, KRISTI, MDD, migraines, and asthma. Patient was recently hospitalized at [facility] 02/26-03/03 for large bowel obstruction and presented 03/06 with increased nausea, abdominal pain, back pain. She is admitted presently for a partial small bowel obstruction. Today 03/09/22: - Patient resting comfortably, anticipating the opportunity to leave her hospital room - NGT remains in place, clamped at visit, patient denies discomfort since clamping of tube - Patient denies worsening reflux, abdominal pain, or abdominal pressure - Patient endorses ostomy output last evening and this morning - Minimal nausea present without emesis - Patient denies any fevers, headaches, chest pain, or shortness of breath - Endorses sore throat 2/2 NGT and discomfort 2/2 rhinorrhea Patient is tolerating NGT and NPO at this time. Review of Systems Review of Systems: Per HPI Physical Exam Physical Exam: Gen: NAD, interactive, cachectic HEENT: Supple, no LAD, no thyromegaly, NGT in right nare Resp:Non-labored, no wheezing/rhonchi/rales, CTAB CV:RRR, normal S1/S2, no M/R/G Abd: Soft, non-distended, no TTP, hypoactive bowels, no masses, no rebound or guarding, ostomy in LLQ (small amount of loose stool in ostomy bag) Extr: 2+ dp bilaterally, no edema Skin: No rashes lesions or erythema Results & Data Results & Data ([facility]) Vital Signs (Past 12 Hours) Vital Signs Temp Pulse Resp BP Pulse Ox O2 Del Method 03/08/22 22:11 36.8 C 79 16 125/79 97 Room Air Resident Activity Tracking Resident Involvement: Resident Care Provided Care Provided: Adult Hospital Medicine (1) Ovarian cancer Laterality: unspecified laterality Qualified Code(s): C56.9 - Malignant neoplasm of unspecified ovary
[2022-03-09] MEDS ORDERED: TPN/PPN CONSULT PHARMACY PRN (07:23)
[2022-03-09] MEDS ORDERED: TPN/PPN CONSULT PHARMACY STA (07:26)
--- NOTE | 2022-03-09 07:26 | Surgery Progress Note ---
Date of Service March 09, 2022 Assessment & Plan (1) Small bowel obstruction: Plan: Patient is stable with NG tube in place We will try clamping NG for longer periods of time before removal Patient has not had much p.o. for over a week with prior hospitalization Will order TPN from pharmacy Check patient's albumin and prealbumin which I am sure are very low Admission and Anticipated Discharge Date Admission Date: March 06, 2022 Subjective Minimal pain Her NG output is somewhat less and she appears to tolerate short-term clamping of NG Review of Systems Review of Systems: All systems reviewed & are unremarkable except as noted in HPI & below Physical Exam Physical Exam: Awake and alert Her abdomen is much less distended-some bowel sounds She does not have significant abdominal tenderness although some discomfort She has some colostomy output Constitutional: + ill appearing Cachectic Eyes: + anicteric sclerae Respiratory: normal respiratory effort; no respiratory distress Cardiovascular: Rate/Rhythm: regular rate Gastrointestinal (Abdomen): Inspection/Auscultation: + abdomen distended Distended but less distended than yesterday Musculoskeletal: Head/Neck/Chest: head atraumatic Skin: no rashes, warm and dry Neurologic: awake Psychiatric: Orientation: alert Results & Data ([facility]) Vital Signs (Past 12 Hours) Vital Signs Temp Pulse Resp BP Pulse Ox O2 Del Method 03/08/22 22:11 36.8 C 79 16 125/79 97 Room Air PG Care Time/CCT Total # of Minutes Spent Total Time Spent with Patient: Total time spent is greater than 50% in coordination of care (as documented) at patient's floor/unit and/or counseling patient: Coding Level of Care Code 75578 Inpt Consult Level 2 Diagnoses Small bowel obstruction K56.609
[2022-03-09 08:02] LABS: Basophils # (auto) 0.02 K/uL (0-0.2); Basophils % (auto) 0.9 %; Eosinophils # (auto) 0.05 K/uL (0-0.50); Eosinophils % (auto) 2.3 %; Hematocrit (blood only) 29.9 % (34.1-44.9); Hemoglobin 9.6 g/dl (12.0-16.0); Lymphocytes # (auto) 0.63 K/uL (1.2-3.4); Mean Corpuscular Hemoglobin 31.6 pg (25.0-34.0); Mean Corpuscular Hgb Conc 32.1 g/dL (32.0-36.0); Mean Corpuscular Volume 98.4 fL (80.0-100.0); Mean Platelet Volume 9.2 fL (9.4-12.3); Monocytes # (auto) 0.11 K/uL (0.24-0.82); Monocytes % (auto) 5.1 %; Neutrophils # (auto) 1.36 K/uL (1.4-6.5); Neutrophils % (auto) 62.7 %; Platelet Count 207 K/uL (130-400); RDW Coefficient of Variation 14.7 % (11.5-14.5); RDW Standard Deviation 51.6 fL (36.4-46.3); Red Blood Count 3.04 M/uL (3.93-5.22); White Blood Count 2.17 K/ul (4.8-10.8)
[2022-03-09 08:27] LABS: Magnesium 1.6 mg/dl (1.7-2.4); Phosphorus 3.4 mg/dl (2.5-4.9); Prealbumin 8.9 mg/dl (20-40)
[2022-03-09] MEDS: SENNOSIDES 8.8 MG/5 ML UDC PO SCH ×2 (08:29→21:21)
[2022-03-09] MEDS: FLUTICASONE FUROATE 100MCG 14 PUFFS/INHALER INH SCH (08:29)
[2022-03-09] MEDS: FLUTICASONE PROPIONATE NA SPR 16 GM BTL SCH ×2 (08:29→21:21)
[2022-03-09] MEDS: PANTOprazole 40 MG in SYRINGE 0 ML IV SCH ×2 (08:29→21:21)
[2022-03-09] MEDS: KETOROLAC TROMETHAMINE 15 MG/ML VIAL IV PRN ×2 (08:30→21:21)
[2022-03-09 08:32] LABS: Albumin Globulin Ratio 1.3 (0.9-2); BUN Creatinine Ratio 8.7 (10-20); Bilirubin,Total 0.4 mg/dl (0.2-1.0); Calcium 8.1 mg/dl (8.5-10.1); Creatinine Clr Calc Pharmacy 88.3 ml/min; Est GFR (African American) 129.8 ml/min; Globulin 2.3 gm/dl (2.5-4.0); Potassium 3.7 mmol/L (3.5-5.1); Total Protein 5.3 gm/dl (6.0-8.3)
[2022-03-09] MEDS: MAGNESIUM SULFATE / D5W 1 GM/100 ML BAG IV SCH ×2 (13:29→15:39)
[2022-03-09] MEDS: LORazepam 1 MG in SYRINGE 0.5 ML IV PRN ×2 (14:18→21:28)
[2022-03-09] MEDS ORDERED: LIDOCAINE VISCOUS 2% 15 ML UDC MT PRN (15:16)
[2022-03-09] MEDS ORDERED: OXYMETAZOLINE 0.05% 30 ML BTL PRN (15:16)
[2022-03-09] MEDS ORDERED: CENTRAL TPN IV SCH ×2 (16:00)
[2022-03-09] MEDS ORDERED: CLINOLIPID 20% IV FAT EMULSION 250 ML IV SCH ×2 (16:00)
[2022-03-09] MEDS ORDERED: [UNRECOGNIZED DRUG - OTHER] IV SCH (16:00)
[2022-03-09] MEDS ORDERED: AMINO ACID 8% IV SCH ×2 (16:00)
[2022-03-09] MEDS ORDERED: [UNRECOGNIZED DRUG - OTHER] IV SCH (16:00)
--- NOTE | 2022-03-09 18:32 | Billing Data ---
Date of Service March 09, 2022 Coding Level of Care Code 60022 Subseq Hosp Care Lvl 3
[2022-03-09] MEDS: ENOXAPARIN INJ 30 MG/0.3 ML SYR SQ SCH (21:21)
[2022-03-09] MEDS ORDERED: STOP CLINOLIPID SCH (22:00)
[2022-03-10] MEDS: D5W AND 1/2NSS + 20MEQ KCL 20 MEQ/1,000 ML BAG IV SCH ×2 (04:34→18:38)
[2022-03-10] MEDS ORDERED: MINERAL OIL 30 ML UDC PO ONE (07:35)
--- NOTE | 2022-03-10 07:42 | Surgery Progress Note ---
Date of Service March 10, 2022 Assessment & Plan (1) Small bowel obstruction: Plan: Patient with history of metastatic ovarian cancer here with SBO Patient tolerated alternating clamping/suction of NGT yesterday. Last put out 100cc after last clamp trial Ostomy is functioning She is denying any abdominal pain, nausea/vomiting and feels improved since admission Biggest complaint is NGT and sore throat. Will order a dose of mineral oil via NGT and remove tube thereafter May start with sips/chips. Continue on peripheral nutrition until she is able to take in enough calories orally No plans for surgical intervention here, is [facility] [place] [facility] this weekend Admission and Anticipated Discharge Date Admission Date: March 06, 2022 Supervising Physician Co-Signing Physician Notes Dr. Bethea will continue her TPN for 1-2 more days and slowly try to advance her diet Dr. Welch will be covering over the weekend Subjective Patient says her abdomen is feeling better. Denies nausea/vomiting. No worsening of symptoms when NGT clamped. Endorses some frustrations with the NGT and has a sore throat. Ostomy is starting to function. Physical Exam Physical Exam: awake/alert Respiratory: normal respiratory effort Gastrointestinal (Abdomen): Percussion/Palpation: abdomen soft; abdomen nontender ostomy with liquid stool in bag Results & Data ([facility]) Vital Signs (Past 12 Hours) Vital Signs Temp Pulse Resp BP BP Pulse Ox O2 Del Method 03/10/22 07:17 36.5 C 93 H 16 128/83 100 Room Air 03/09/22 22:17 36.4 C L 99 H 17 134/91 99 Room Air PG Care Time/CCT Total # of Minutes Spent Total Time Spent with Patient: Total time spent is greater than 50% in coordination of care (as documented) at patient's floor/unit and/or counseling patient: Coding Level of Care Code 59490 Subseq Hosp Care Lvl 1 Diagnoses Small bowel obstruction K56.609
[2022-03-10] MEDS: FLUTICASONE FUROATE 100MCG 14 PUFFS/INHALER INH SCH (08:27)
[2022-03-10] MEDS: FLUTICASONE PROPIONATE NA SPR 16 GM BTL SCH ×2 (08:27→21:21)
[2022-03-10] MEDS: PANTOprazole 40 MG in SYRINGE 0 ML IV SCH ×2 (08:28→21:23)
[2022-03-10] MEDS: SENNOSIDES 8.8 MG/5 ML UDC PO SCH ×2 (08:28→21:21)
[2022-03-10] MEDS: KETOROLAC TROMETHAMINE 15 MG/ML VIAL IV PRN (08:35)
[2022-03-10 09:16] LABS: Basophils # (auto) 0.02 K/uL (0-0.2); Basophils % (auto) 0.8 %; Eosinophils # (auto) 0.06 K/uL (0-0.50); Eosinophils % (auto) 2.4 %; Hematocrit (blood only) 32.7 % (34.1-44.9); Hemoglobin 10.5 g/dl (12.0-16.0); Immature Granulocytes # (auto) 0.01 K/uL (0.00-0.02); Immature Granulocytes % (auto) 0.4 %; Lymphocytes # (auto) 0.41 K/uL (1.2-3.4); Lymphocytes % (auto) 16.1 %; Mean Corpuscular Hemoglobin 31.9 pg (25.0-34.0); Mean Corpuscular Hgb Conc 32.1 g/dL (32.0-36.0); Mean Corpuscular Volume 99.4 fL (80.0-100.0); Mean Platelet Volume 9.5 fL (9.4-12.3); Monocytes # (auto) 0.14 K/uL (0.24-0.82); Monocytes % (auto) 5.5 %; Neutrophils # (auto) 1.91 K/uL (1.4-6.5); Neutrophils % (auto) 74.8 %; Platelet Count 225 K/uL (130-400); RDW Coefficient of Variation 15.1 % (11.5-14.5); RDW Standard Deviation 54.1 fL (36.4-46.3); Red Blood Count 3.29 M/uL (3.93-5.22); White Blood Count 2.55 K/ul (4.8-10.8)
[2022-03-10 09:35] LABS: Albumin Globulin Ratio 1.4 (0.9-2); Albumin Level 3.3 gm/dl (3.4-5.0); BUN Creatinine Ratio 8.5 (10-20); Bilirubin,Total 0.4 mg/dl (0.2-1.0); Calcium 8.2 mg/dl (8.5-10.1); Est GFR (African American) 128.9 ml/min; Est GFR (Non-African American) 111.2 ml/min; Globulin 2.4 gm/dl (2.5-4.0); Magnesium 2.1 mg/dl (1.7-2.4); Phosphorus 3.5 mg/dl (2.5-4.9); Total Protein 5.7 gm/dl (6.0-8.3)
--- NOTE | 2022-03-10 10:28 | Pharmacy Report ---
Pharmacy PN Initial Consult - Date of Service March 10, 2022 - Scope Pharmacy has been consulted to manage parenteral nutrition orders and order appropriate labs. As part of the Nutrition Support Team guidelines, pharmacy will work in conjunction with dietary when determining the patients caloric needs. - Subjective The patient is a 57 year old F admitted on 03/06/22 19:01 for PARTIAL SBO. Patient is to receive parenteral nutrition for continued SBO. Pertinent PMH: low body weight; ovarian cancer - Objective Height: 5 ft 4 in Weight: 40.3 kg Diet: NPO Vascular Access:: port Intake & Output (Last 24Hrs): Intake & Output 03/08/22 03/09/22 03/10/22 03/11/22 06:59 06:59 06:59 06:59 Intake Total 1999 / 1999 2236.666 / 2236.666 3312.000 / 3312.000 Output Total 2600 / 2600 1200 / 1200 4475 / 4475 900 / 900 Balance -600 / -600 1036.666 / 1036.666 -1163.000 / -1163.000 -900 / -900 Weight 43.23 kg 40.3 kg Laboratory Data (Last 24 Hrs):: 03/10/22 08:58 Sodium 139 Potassium 4.0 Chloride 107 Carbon Dioxide 25 BUN 4 L Creatinine 0.47 L Glucose 111 H Calcium 8.2 L Phosphorus 3.5 Magnesium 2.1 Total Bilirubin 0.4 AST 14 ALT 7 Alkaline Phosphatase 70 Albumin 3.3 L Nutrition Assessment:: Please refer to the Notes section of the 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 - Plan For day 2 of PN administration, the following will be ordered: Macronutrients Amino acids 77 grams/day Dextrose 135 grams/day Lipids 40 grams/day Micronutrients Combined electrolytes -- mL - contains 35 mEq Na, 20 meq K, 4.5 mEq Ca, 5 mEq Mg, 35 mEq Cl, 29.5 mEq acetate per 20 mL Sodium phosphate 21 MMol Sodium chloride -- mEq Sodium acetate 70 mEq Potassium phosphate -- mMol Potassium chloride 50 mEq Potassium acetate -- mEq Magnesium sulfate 8.12 mEq Calcium gluconate 4.65 mEq Multivitamins 10 mL Trace Elements 10 mL Additional additives: thiamine + folic acid Total volume 1051 mL to be infused over 24 hrs will provide 1162 kcal/day To run with D51/2 NS + 20 KCL per discussion with hospitalist team. Labs to be ordered per PN order protocol Pharmacy will follow and adjust parenteral nutrition orders on a daily basis. Thank you.
[2022-03-10] MEDS: LORazepam 1 MG in SYRINGE 0.5 ML IV PRN ×2 (12:11→21:23)
--- NOTE | 2022-03-10 12:20 | Hospitalist Progress Note ---
Date of Service March 10, 2022 Assessment & Plan (1) Small bowel obstruction: Plan: Muriel is a 57 year old female with hx of ovarian cancer on chemotherapy, carcinomatosis s/p colectomy with ostomy, ascites requiring previous paracentesis, KRISTI, MDD, migraines, and asthma. Currently admitted for partial SBO. Partial SBO - CTAP with evidence of partial SBO and sx consistent with SBO (abdominal pain, bloating, nausea) - General Surgery * Tolerated alternating clamping/suction of NGT yesterday, removed tube 03/10 AM, recommended sips/chips with continued TPN - Conversed with patient's oncologist who agree with conservative management at this time - Advanced to clear liquid diet w/ strict I's and O's (including NG tube and ostomy output) - Hypokalemia - repleted, will monitor - Hypomagnesemia - repleted, will monitor - PRNs- Toradol, Tylenol, Reglan - Trend CBC, CMP Hypoglycemia - Likely 2/2 severe protein calorie malnutrition - Adjusted fluids to D5 1/2 NS at 60 mls/hr 03/09 - Surgery initiating TPN Ovarian Cancer - 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 Villagran at [facility] and Dr. Maldonado/Sravani Lemons at [facility] - Implications of small bowel obstruction in the setting of ovarian cancer discussed with patient Depression, Anxiety - Holding home Zoloft while NPO (wants to re-initiate as soon as possible) - Ativan 0.5 mg PRN for acute anxiety Hyponatremia - Resolved, considered 2/2 poor PO intake a/w recent LBO and current SBO - Continue IVF - Trend CMP Migraines - Holding home Topamax while NPO GERD - Continue pantoprazole 40 mg IV BID - transition to PO as tolerated - Added Pepcid daily PRN Asthma - Continue home Qvar inhaler daily, Flonase BID - Holding home Montelukast (2) Anxiety and depression: (3) GERD (gastroesophageal reflux disease): (4) Ovarian cancer: (5) Asthma: Plan FEN: clear liquids, TPN IV: IV meds through port Code status: Full DVT ppx: Lovenox 30 mg daily Isolation: None Dispo: Medical/Surgical Admission and Anticipated Discharge Date Admission Date: March 06, 2022 Supervising Physician Co-Signing Physician Notes I personally examined the patient and verified all francis points of history and exam, discussed case, and agree with decision making with Dr Roman hernandez. no pain/bloating/nausae/vomiting. ongoing (+) ostomy output vitals noted nad heent nc at mmm abd soft nd nt no guarding no rebound no rigidity SBO - recurrent. concern about ?adhesional vs carinomatosis as nidus. Cautiously promising - clear liquids, advance slowly as tolerated. Recurrent hypoglycemiaindicative of her severe protein calorie m alnutritioncontinue TPN as ordered by surgery DVT proph - lovenox Subjective Muriel is a 57 year old female with hx of ovarian cancer on chemotherapy, carcinomatosis s/p colectomy with ostomy, ascites requiring previous paracentesis, KRISTI, MDD, migraines, and asthma. Patient was recently hospitalized at [facility] 02/26-03/03 for large bowel obstruction and presented 03/06 with increased nausea, abdominal pain, back pain. She is admitted presently for a partial small bowel obstruction. Today 03/09/22: - Patient resting comfortably, anticipating the opportunity to go home - NGT removed this morning, patient still has sore throat 2/2 tube - Patient denies worsening reflux, abdominal pain, or abdominal pressure - Patient endorses ostomy output last evening and this morning - No nausea or emesis - Patient denies any fevers, headaches, chest pain, or shortness of breath Review of Systems Review of Systems: Per HPI Physical Exam Physical Exam: Gen: NAD, interactive, cachectic HEENT: Supple, no LAD, no thyromegaly, NGT removed Resp:Non-labored, no wheezing/rhonchi/rales, CTAB CV:RRR, normal S1/S2, no M/R/G Abd: Soft, non-distended, no TTP, hypoactive bowels, no masses, no rebound or guarding, ostomy in LLQ (small amount of loose stool in ostomy bag) Extr: 2+ dp bilaterally, no edema Skin: No rashes lesions or erythema Results & Data Results & Data ([facility]) Vital Signs (Past 12 Hours) Vital Signs Temp Pulse Resp BP Pulse Ox O2 Del Method 03/10/22 07:17 36.5 C 93 H 16 128/83 100 Room Air Resident Activity Tracking Resident Involvement: Resident Care Provided Care Provided: Adult Hospital Medicine (1) Ovarian cancer Laterality: unspecified laterality Qualified Code(s): C56.9 - Malignant neoplasm of unspecified ovary
[2022-03-10] MEDS ORDERED: CLINOLIPID 20% IV FAT EMULSION 250 ML IV SCH (16:00)
[2022-03-10] MEDS ORDERED: AMINO ACID 8% IV SCH (16:00)
[2022-03-10] MEDS ORDERED: CENTRAL TPN IV SCH (16:00)
[2022-03-10] MEDS ORDERED: [UNRECOGNIZED DRUG - OTHER] IV SCH (16:00)
--- NOTE | 2022-03-10 19:21 | Billing Data ---
Date of Service March 10, 2022 Coding Level of Care Code 47108 Subseq Hosp Care Lvl 3
[2022-03-10] MEDS: ENOXAPARIN INJ 30 MG/0.3 ML SYR SQ SCH (21:21)
[2022-03-10] MEDS ORDERED: STOP CLINOLIPID SCH (22:00)
[2022-03-11] MEDS: FLUTICASONE FUROATE 100MCG 14 PUFFS/INHALER INH SCH (09:02)
[2022-03-11] MEDS: FLUTICASONE PROPIONATE NA SPR 16 GM BTL SCH ×2 (09:02→21:13)
[2022-03-11] MEDS: SENNOSIDES 8.8 MG/5 ML UDC PO SCH ×2 (09:02→21:14)
[2022-03-11] MEDS: PANTOprazole 40 MG in SYRINGE 0 ML IV SCH ×2 (09:02→21:13)
--- NOTE | 2022-03-11 09:04 | Hospitalist Progress Note ---
Date of Service March 11, 2022 Assessment & Plan (1) Small bowel obstruction: Plan: Muriel is a 57 year old female with hx of ovarian cancer on chemotherapy, carcinomatosis s/p colectomy with ostomy, ascites requiring previous paracentesis, KRISTI, MDD, migraines, and asthma. Currently admitted for partial SBO. Partial SBO - CTAP with evidence of partial SBO and sx consistent with SBO (abdominal pain, bloating, nausea) - General Surgery removed NGT 03/10 AM, tolerating clear liquid diet with continued TPN - Care previously discussed with Patient's oncologist who agree with conservative management at this time - PRNs- Toradol, Tylenol, Reglan - Plan to advance to full liquid diet w/ continued strict I's and O's (including NG tube and ostomy output) Electrolyte Imbalance -Hypokalemia - repleted, will monitor - Hypomagnesemia - repleted, will monitor - Hyponatremia- Resolved, considered 2/2 poor PO intake a/w recent LBO and current SBO Hypoglycemia - Likely 2/2 severe protein calorie malnutrition - Adjusted fluids to D5 1/2 NS at 60 mls/hr - Surgery initiating TPN Ovarian Cancer - 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 Villagran at [facility] and Dr. Maldonado/Sravani Lemons at [facility] - Implications of small bowel obstruction in the setting of ovarian cancer discussed with patient Depression, Anxiety - Will plan to restart Zoloft since she is tolerating liquids. - Ativan 0.5 mg PRN for acute anxiety Migraines - Holding home Topamax while NPO GERD - Continue pantoprazole 40 mg IV BID - transition to PO as tolerated - Added Pepcid daily PRN Asthma - Continue home Qvar inhaler daily, Flonase BID - Holding home Montelukast (2) Anxiety and depression: (3) GERD (gastroesophageal reflux disease): (4) Ovarian cancer: (5) Asthma: Plan FEN: full liquids, TPN IV: IV meds through port Code status: Full DVT ppx: Lovenox 30 mg daily Isolation: None Dispo: Medical/Surgical Admission and Anticipated Discharge Date Admission Date: March 06, 2022 Supervising Physician Co-Signing Physician Notes I personally examined the patient and verified all francis points of history and exam, discussed case, and agree with decision making with Dr Jennings Tolerating full liquids. no nausea. did feel full for a while after yogurt and almond milk vitals noted nad heent nc at mmm abd soft nd nt no guarding no rebound no rigidity SBO - recurrent. concern about ?adhesional vs carinomatosis as nidus. Cautiously promising -advance to full liquids. Continue to follow. Recurrent hypoglycemiaindicative of her severe protein calorie malnutrition. DVT proph - lovenox Subjective Muriel is a 57 year old female with hx of ovarian cancer on chemotherapy, carcinomatosis s/p colectomy with ostomy, ascites requiring previous paracentesis, KRISTI, MDD, migraines, and asthma. Patient was recently hospitalized at [facility] 02/26-03/03 for large bowel obstruction and presented 03/06 with increased nausea, abdominal pain, back pain. She is admitted presently for a partial small bowel obstruction. No events overnight. She is resting comfortably this morning. She states that physically she is feeling at lot better, but struggling with mental health and would like to resume Zoloft as soon as possible. NGT was removed yesterday. Tolerating clear liquids. Denies worsening reflux, abdominal pain/pressure, nausea, vomiting. Endorses green ostomy output this morning. Denies any fevers, headaches, chest pain, or shortness of breath. Physical Exam Physical Exam: Gen: NAD, interactive, cachectic HEENT: Supple, no LAD, no thyromegaly, NGT removed Resp:Non-labored, no wheezing/rhonchi/rales, CTAB CV:RRR, normal S1/S2, no M/R/G Abd: Soft, non-distended, no TTP, hypoactive bowels, no masses, no rebound or guarding, ostomy in LLQ Extr: 2+ dp bilaterally, no edema Skin: No rashes lesions or erythema Results & Data Results & Data ([facility]) Vital Signs (Past 12 Hours) Vital Signs Temp Pulse Resp BP BP Pulse Ox O2 Del Method 03/11/22 07:24 36.6 C 97 H 16 115/84 96 Room Air 03/11/22 00:39 36.6 C 86 14 127/85 100 Laboratory Results 03/11/22 03/11/22 03/10/22 Range/Units 05:57 01:17 18:15 WBC (4.8-10.8) K/ul RBC (3.93-5.22) M/uL Hgb (12.0-16.0) g/dl Hct (34.1-44.9) % MCV (80.0-100.0) fL MCH (25.0-34.0) pg MCHC (32.0-36.0) g/dL RDW Std Deviation (36.4-46.3) fL RDW Coeff of Risa (11.5-14.5) % Plt Count (130-400) K/uL MPV (9.4-12.3) fL Immature Gran % (Auto) % Neut % (Auto) % Lymph % (Auto) % [place] % (Auto) % Eos % (Auto) % Baso % (Auto) % Neut # (Auto) (1.4-6.5) K/uL Lymph # (Auto) (1.2-3.4) K/uL [place] # (Auto) (0.24-0.82) K/uL Eos # (Auto) (0-0.50) K/uL Baso # (Auto) (0-0.2) K/uL Immature Gran # (Auto) (0.00-0.02) K/uL Sodium (136-145) mmol/L Potassium (3.5-5.1) mmol/L Chloride (98-107) mmol/L Carbon Dioxide (21-32) mmol/L Anion Gap (3-11) BUN (6-23) mg/dl Creatinine (0.6-1.2) mg/dl Est Cr Clr Drug Dosing ml/min Est GFR ( Amer) ml/min Est GFR (Non-Af Amer) ml/min BUN/Creatinine Ratio (10-20) Glucose (70-99(Fasting)) mg/dl POC Glucose 102 H 103 H 112 H (70-99) mg/dl Calcium (8.5-10.1) mg/dl Phosphorus (2.5-4.9) mg/dl Magnesium (1.7-2.4) mg/dl Total Bilirubin (0.2-1.0) mg/dl AST (13-39) U/L ALT (7-52) U/L Alkaline Phosphatase (34-104) U/L Total Protein (6.0-8.3) gm/dl Albumin (3.4-5.0) gm/dl Globulin (2.5-4.0) gm/dl Albumin/Globulin Ratio (0.9-2) 03/10/22 03/10/22 03/10/22 Range/Units 11:39 08:58 08:58 WBC 2.55 L (4.8-10.8) K/ul RBC 3.29 L (3.93-5.22) M/uL Hgb 10.5 L (12.0-16.0) g/dl Hct 32.7 L (34.1-44.9) % MCV 99.4 (80.0-100.0) fL MCH 31.9 (25.0-34.0) pg MCHC 32.1 (32.0-36.0) g/dL RDW Std Deviation 54.1 H (36.4-46.3) fL RDW Coeff of Risa 15.1 H (11.5-14.5) % Plt Count 225 (130-400) K/uL MPV 9.5 (9.4-12.3) fL Immature Gran % (Auto) 0.4 % Neut % (Auto) 74.8 % Lymph % (Auto) 16.1 % Williamson % (Auto) 5.5 % Eos % (Auto) 2.4 % Baso % (Auto) 0.8 % Neut # (Auto) 1.91 (1.4-6.5) K/uL Lymph # (Auto) 0.41 L (1.2-3.4) K/uL [place] # (Auto) 0.14 L (0.24-0.82) K/uL Eos # (Auto) 0.06 (0-0.50) K/uL Baso # (Auto) 0.02 (0-0.2) K/uL Immature Gran # (Auto) 0.01 (0.00-0.02) K/uL Sodium 139 (136-145) mmol/L Potassium 4.0 (3.5-5.1) mmol/L Chloride 107 (98-107) mmol/L Carbon Dioxide 25 (21-32) mmol/L Anion Gap 7 (3-11) BUN 4 L (6-23) mg/dl Creatinine 0.47 L (0.6-1.2) mg/dl Est Cr Clr Drug Dosing 86.0 ml/min Est GFR ( Amer) 128.9 ml/min Est GFR (Non-Af Amer) 111.2 ml/min BUN/Creatinine Ratio 8.5 L (10-20) Glucose 111 H (70-99(Fasting)) mg/dl POC Glucose 103 H (70-99) mg/dl Calcium 8.2 L (8.5-10.1) mg/dl Phosphorus 3.5 (2.5-4.9) mg/dl Magnesium 2.1 (1.7-2.4) mg/dl Total Bilirubin 0.4 (0.2-1.0) mg/dl AST 14 (13-39) U/L ALT 7 (7-52) U/L Alkaline Phosphatase 70 (34-104) U/L Total Protein 5.7 L (6.0-8.3) gm/dl Albumin 3.3 L (3.4-5.0) gm/dl Globulin 2.4 L (2.5-4.0) gm/dl Albumin/Globulin Ratio 1.4 (0.9-2) Resident Activity Tracking Resident Involvement: Resident Care Provided Care Provided: Adult [facility] Medicine (1) Ovarian cancer Laterality: unspecified laterality Qualified Code(s): C56.9 - Malignant neoplasm of unspecified ovary
[2022-03-11 09:44] LABS: Basophils # (auto) 0.02 K/uL (0-0.2); Eosinophils # (auto) 0.05 K/uL (0-0.50); Eosinophils % (auto) 2.6 %; Hematocrit (blood only) 35.3 % (34.1-44.9); Hemoglobin 11.1 g/dl (12.0-16.0); Immature Granulocytes # (auto) 0.01 K/uL (0.00-0.02); Immature Granulocytes % (auto) 0.5 %; Lymphocytes # (auto) 0.63 K/uL (1.2-3.4); Lymphocytes % (auto) 32.6 %; Mean Corpuscular Hemoglobin 31.5 pg (25.0-34.0); Mean Corpuscular Hgb Conc 31.4 g/dL (32.0-36.0); Mean Corpuscular Volume 100.3 fL (80.0-100.0); Mean Platelet Volume 9.8 fL (9.4-12.3); Monocytes # (auto) 0.14 K/uL (0.24-0.82); Monocytes % (auto) 7.3 %; Neutrophils # (auto) 1.08 K/uL (1.4-6.5); Platelet Count 294 K/uL (130-400); RDW Coefficient of Variation 15.4 % (11.5-14.5); RDW Standard Deviation 55.1 fL (36.4-46.3); Red Blood Count 3.52 M/uL (3.93-5.22); White Blood Count 1.93 K/ul (4.8-10.8)
[2022-03-11 10:03] LABS: Albumin Globulin Ratio 1.5 (0.9-2); Albumin Level 3.8 gm/dl (3.4-5.0); Bilirubin,Total 0.3 mg/dl (0.2-1.0); Creatinine Clr Calc Pharmacy 80.3 ml/min; Est GFR (African American) 126.3 ml/min; Globulin 2.5 gm/dl (2.5-4.0); Phosphorus 3.7 mg/dl (2.5-4.9); Potassium 3.8 mmol/L (3.5-5.1); Total Protein 6.3 gm/dl (6.0-8.3)
[2022-03-11] MEDS: LORazepam 1 MG in SYRINGE 0.5 ML IV PRN ×2 (10:39→21:14)
[2022-03-11] MEDS: D5W AND 1/2NSS + 20MEQ KCL 20 MEQ/1,000 ML BAG IV SCH (10:40)
--- NOTE | 2022-03-11 11:21 | Surgery Progress Note ---
Date of Service March 11, 2022 Assessment & Plan (1) Small bowel obstruction: Plan: Due to metastatic ovarian cancer. On tpn and clear liquids currently. Was tolerating regular diet prior to this episode. Will advance to full liquids today. May be able to d/c tpn if tolerates. Admission and Anticipated Discharge Date Admission Date: March 06, 2022 Subjective Feeling better. No pain. Does not feel distended. Tolerating clears with ostomy functioning. Bilious material in ostomy bag. Physical Exam Eyes: PERRL, conjunctivae normal, anicteric sclerae Respiratory: normal respiratory effort, lungs clear to auscultation Cardiovascular: RRR, no murmur, no edema Gastrointestinal (Abdomen): Inspection/Auscultation: abdomen normal to inspection and normal bowel sounds; abdomen not distended Percussion/Palpation: abdomen soft; abdomen nontender and no guarding ostomy with liquid bilious material Neurologic: awake; no focal motor deficits Psychiatric: A+Ox3, euthymic affect Results & Data ([facility]) Vital Signs (Past 12 Hours) Vital Signs Temp Pulse Resp BP BP Pulse Ox O2 Del Method 03/11/22 07:24 36.6 C 97 H 16 115/84 96 Room Air 03/11/22 00:39 36.6 C 86 14 127/85 100 Laboratory Results Abnormal lab results 03/10/22 03/10/22 03/11/22 Range/Units 11:39 18:15 01:17 WBC (4.8-10.8) K/ul RBC (3.93-5.22) M/uL Hgb (12.0-16.0) g/dl MCV (80.0-100.0) fL MCHC (32.0-36.0) g/dL RDW Std Deviation (36.4-46.3) fL RDW Coeff of Risa (11.5-14.5) % Neut # (Auto) (1.4-6.5) K/uL Lymph # (Auto) (1.2-3.4) K/uL [place] # (Auto) (0.24-0.82) K/uL Creatinine (0.6-1.2) mg/dl POC Glucose 103 H 112 H 103 H (70-99) mg/dl 08/20/22 08/20/22 08/20/22 Range/Units 05:57 09:06 09:06 WBC 1.93 L (4.8-10.8) K/ul RBC 3.52 L (3.93-5.22) M/uL Hgb 11.1 L (12.0-16.0) g/dl MCV 100.3 H (80.0-100.0) fL MCHC 31.4 L (32.0-36.0) g/dL RDW Std Deviation 55.1 H (36.4-46.3) fL RDW Coeff of Risa 15.4 H (11.5-14.5) % Neut # (Auto) 1.08 L (1.4-6.5) K/uL Lymph # (Auto) 0.63 L (1.2-3.4) K/uL [place] # (Auto) 0.14 L (0.24-0.82) K/uL Creatinine 0.50 L (0.6-1.2) mg/dl POC Glucose 102 H (70-99) mg/dl
--- NOTE | 2022-03-11 19:42 | Billing Data ---
Date of Service March 11, 2022 Coding Level of Care Code 70118 Subseq Hosp Care Lvl 3
[2022-03-11] MEDS: ENOXAPARIN INJ 30 MG/0.3 ML SYR SQ SCH (21:12)
[2022-03-11] MEDS: SERTRALINE HCL 100 MG TABLET PO SCH (21:14)
[2022-03-11] MEDS: METOCLOPRAMIDE HCL INJ 5 MG/ML 2 ML VIAL IV PRN (21:14)
[2022-03-12] MEDS: D5W AND 1/2NSS + 20MEQ KCL 20 MEQ/1,000 ML BAG IV SCH ×2 (03:16→20:05)
[2022-03-12] MEDS: LORazepam 1 MG in SYRINGE 0.5 ML IV PRN ×3 (03:22→21:59)
[2022-03-12] MEDS ORDERED: KETOROLAC TROMETHAMINE 15 MG/ML VIAL IV ONE ×2 (07:27→12:18)
[2022-03-12] MEDS ORDERED: ACETAMINOPHEN 325 MG TAB PO PRN (07:27)
[2022-03-12] MEDS: METOCLOPRAMIDE HCL INJ 5 MG/ML 2 ML VIAL IV PRN (07:53)
[2022-03-12 09:04] LABS: Basophils # (auto) 0.02 K/uL (0-0.2); Basophils % (auto) 0.9 %; Eosinophils # (auto) 0.04 K/uL (0-0.50); Eosinophils % (auto) 1.8 %; Hematocrit (blood only) 32.2 % (34.1-44.9); Hemoglobin 10.3 g/dl (12.0-16.0); Mean Corpuscular Hemoglobin 31.9 pg (25.0-34.0); Mean Corpuscular Volume 99.7 fL (80.0-100.0); Monocytes # (auto) 0.24 K/uL (0.24-0.82); Monocytes % (auto) 10.7 %; Neutrophils # (auto) 1.05 K/uL (1.4-6.5); Neutrophils % (auto) 46.6 %; Platelet Count 294 K/uL (130-400); RDW Coefficient of Variation 15.2 % (11.5-14.5); RDW Standard Deviation 55.8 fL (36.4-46.3); Red Blood Count 3.23 M/uL (3.93-5.22); White Blood Count 2.25 K/ul (4.8-10.8)
[2022-03-12] MEDS: FLUTICASONE PROPIONATE NA SPR 16 GM BTL SCH ×2 (09:50→20:06)
[2022-03-12] MEDS: SENNOSIDES 8.8 MG/5 ML UDC PO SCH ×2 (09:51→20:07)
[2022-03-12] MEDS: PANTOprazole 40 MG in SYRINGE 0 ML IV SCH (09:51)
[2022-03-12] MEDS: FLUTICASONE FUROATE 100MCG 14 PUFFS/INHALER INH SCH (09:51)
[2022-03-12 09:58] LABS: Albumin Globulin Ratio 1.4 (0.9-2); Albumin Level 3.3 gm/dl (3.4-5.0); BUN Creatinine Ratio 8.5 (10-20); Bilirubin,Total 0.3 mg/dl (0.2-1.0); Calcium 8.4 mg/dl (8.5-10.1); Est GFR (African American) 119.6 ml/min; Est GFR (Non-African American) 103.2 ml/min; Globulin 2.3 gm/dl (2.5-4.0); Magnesium 1.7 mg/dl (1.7-2.4); Phosphorus 3.4 mg/dl (2.5-4.9); Potassium 4.7 mmol/L (3.5-5.1); Total Protein 5.6 gm/dl (6.0-8.3)
--- NOTE | 2022-03-12 11:49 | Surgery Progress Note ---
Date of Service March 12, 2022 Assessment & Plan (1) Small bowel obstruction: Plan: Due to metastatic ovarian cancer. PPN discontinued. Tolerated full liquids. Will advance to low fiber diet. If tolerates, stable for discharge from surgical standpoint. Admission and Anticipated Discharge Date Admission Date: March 06, 2022 Subjective Feels OK. Tolerated full liquids yesterday but did feel bloated after dinner. This resolved overnight and she feels well now. Feels that she could eat normal food and would like to try it. Ostomy functioning - starting to see more brown stool. Physical Exam Eyes: PERRL, conjunctivae normal, anicteric sclerae Gastrointestinal (Abdomen): Inspection/Auscultation: abdomen normal to inspection and normal bowel sounds (gas/ stool in ostomy bag); abdomen not distended Percussion/Palpation: abdomen soft; abdomen nontender and no guarding Neurologic: awake; no focal motor deficits Psychiatric: A+Ox3, euthymic affect Results & Data ([facility]) Vital Signs (Past 12 Hours) Vital Signs Temp Pulse Resp BP Pulse Ox O2 Del Method 03/12/22 09:47 36.8 C 83 16 130/87 98 Room Air
[2022-03-12] MEDS ORDERED: PROMETHAZINE HCL 25 MG TAB PO ONE (12:18)
--- NOTE | 2022-03-12 12:23 | Hospitalist Progress Note ---
Date of Service March 12, 2022 Assessment & Plan (1) Small bowel obstruction: Plan: Muriel is a 57 year old female with hx of ovarian cancer on chemotherapy, carcinomatosis s/p colectomy with ostomy, ascites requiring previous paracentesis, KRISTI, MDD, migraines, and asthma. Currently admitted for partial SBO. Partial SBO - CTAP with evidence of partial SBO and sx consistent with SBO (abdominal pain, bloating, nausea) - Cause of SBO could be adhesional due to prior abdominal surgery vs carcinomatosis - General Surgery removed NGT 03/10 AM, tolerating clear liquid diet with continued TPN - Care previously discussed with Patient's oncologist who agree with conservative management at this time - PRNs- Toradol, Tylenol, Reglan - Surgery saw today and advanced diet to low fiber, soft texture. 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 Villagran at [facility] and Dr. Maldonado/Sravani Lemons at [facility] - Implications of small bowel obstruction in the setting of ovarian cancer discussed with patient Depression, Anxiety - She has been having increased anxiety. - Zoloft restarted since she is tolerating liquids. - Ativan 1mg q6 for anxiety. Switch from prn to scheduled due to increased anxiety at request of patient with caution. Age=57 with late stage ovarian cancer and limited other comorbid conditions. Migraines - Holding home Topamax while NPO - Had a migraine this morning- Tylenol, Toradol did not resolve also gave 25 mg phenergan po GERD - Continue pantoprazole 40 mg IV BID - transition to PO as tolerated - Added Pepcid daily PRN Asthma - Continue home Qvar inhaler daily, Flonase BID - Holding home Montelukast (2) Anxiety and depression: (3) GERD (gastroesophageal reflux disease): (4) Ovarian cancer: (5) Asthma: Plan FEN: full liquids, TPN IV: IV meds through port Code status: Full DVT ppx: Lovenox 30 mg daily Isolation: None Dispo: Medical/Surgical Admission and Anticipated Discharge Date Admission Date: March 06, 2022 Supervising Physician Co-Signing Physician Notes I personally examined the patient and verified all francis points of history and exam, discussed case, and agree with decision making with Dr Jennings Tolerated more regular diet. feels full for a while after - maybe ~4hrs - but n o nausea, then things feel better. no bloating/pain/nausea. ongoing ostomy output vitals noted nad heent nc at mmm abd soft nd nt no guarding no rebound no rigidity SBO - recurrent. concern about ?adhesional vs carinomatosis as nidus. Cautiously promising -if tolerates current diet into tomorrowhopefully home with outpatient oncology and surgical oncology follow-up. Seeing a dietitian tomorrow to help guide her on how to meet her calorie/nutrition goals with what sounds to be probably limited windows of being able to eat followed by a long time to allow for gastric emptying. Recurrent hypoglycemiaindicative of her severe protein calorie malnutrition. Fortunately has not recurred DVT proph - lovenox Angela Llamas is a 57 year old female with hx of ovarian cancer on chemotherapy, carcinomatosis s/p colectomy with ostomy, ascites requiring previous paracentesis, KRISTI, MDD, migraines, and asthma. Patient was recently hospitalized at [facility] 02/26-03/03 for large bowel obstruction and presented 03/06 with increased nausea, abdominal pain, back pain. She is admitted presently for a partial small bowel obstruction. This morning she is complaining of a migraine with associated nausea, no emesis. She gets migraines multiple times per month. Pain is frontal B/L. No vision changes. NGT was removed 03/10. Tolerating full liquids, although she states she has been having some abdominal fullness/bloating especially after almond milk yogurt yesterday. Somewhat improved this morning. Denies worsening reflux, abdominal pain/pressure, nausea, vomiting. Endorses green ostomy output this morning. Denies any fevers, chest pain, or dyspnea Physical Exam Physical Exam: Gen: NAD, interactive, cachectic HEENT: Supple, no LAD, no thyromegaly, NGT removed Resp:Non-labored, no wheezing/rhonchi/rales, CTAB CV:RRR, normal S1/S2, no M/R/G Abd: Soft, non-distended, no TTP, hypoactive bowels, no masses, no rebound or guarding, ostomy in LLQ Extr: 2+ dp bilaterally, no edema Skin: No rashes lesions or erythema Results & Data Results & Data ([facility]) Vital Signs (Past 12 Hours) Vital Signs Temp Pulse Resp BP Pulse Ox O2 Del Method 03/11/22 21:15 Room Air 03/11/22 21:15 36.5 C 90 16 125/85 100 Room Air Laboratory Results 03/12/22 03/12/22 03/11/22 Range/Units 08:42 08:42 16:53 WBC 2.25 L (4.8-10.8) K/ul RBC 3.23 L (3.93-5.22) M/uL Hgb 10.3 L (12.0-16.0) g/dl Hct 32.2 L (34.1-44.9) % MCV 99.7 (80.0-100.0) fL MCH 31.9 (25.0-34.0) pg MCHC 32.0 (32.0-36.0) g/dL RDW Std Deviation 55.8 H (36.4-46.3) fL RDW Coeff of Risa 15.2 H (11.5-14.5) % Plt Count 294 (130-400) K/uL MPV 10.0 (9.4-12.3) fL Immature Gran % (Auto) 0.0 % Neut % (Auto) 46.6 % Lymph % (Auto) 40.0 % [place] % (Auto) 10.7 % Eos % (Auto) 1.8 % Baso % (Auto) 0.9 % Neut # (Auto) 1.05 L (1.4-6.5) K/uL Lymph # (Auto) 0.90 L (1.2-3.4) K/uL [place] # (Auto) 0.24 (0.24-0.82) K/uL Eos # (Auto) 0.04 (0-0.50) K/uL Baso # (Auto) 0.02 (0-0.2) K/uL Immature Gran # (Auto) 0.00 (0.00-0.02) K/uL Sodium 135 L (136-145) mmol/L Potassium 4.7 D (3.5-5.1) mmol/L Chloride 105 (98-107) mmol/L Carbon Dioxide 26 (21-32) mmol/L Anion Gap 4 (3-11) BUN 5 L (6-23) mg/dl Creatinine 0.59 L (0.6-1.2) mg/dl Est Cr Clr Drug Dosing 68.0 ml/min Est GFR ( Amer) 119.6 ml/min Est GFR (Non-Af Amer) 103.2 ml/min BUN/Creatinine Ratio 8.5 L (10-20) Glucose 92 (70-99(Fasting)) mg/dl POC Glucose 80 (70-99) mg/dl Calcium 8.4 L (8.5-10.1) mg/dl Phosphorus 3.4 (2.5-4.9) mg/dl Magnesium 1.7 (1.7-2.4) mg/dl Total Bilirubin 0.3 (0.2-1.0) mg/dl AST 20 (13-39) U/L ALT 13 (7-52) U/L Alkaline Phosphatase 68 (34-104) U/L Total Protein 5.6 L (6.0-8.3) gm/dl Albumin 3.3 L (3.4-5.0) gm/dl Globulin 2.3 L (2.5-4.0) gm/dl Albumin/Globulin Ratio 1.4 (0.9-2) Resident Activity Tracking Resident Involvement: Resident Care Provided Care Provided: [facility] Medicine (1) Ovarian cancer Laterality: unspecified laterality Qualified Code(s): C56.9 - Malignant neoplasm of unspecified ovary
--- NOTE | 2022-03-12 18:25 | Billing Data ---
Date of Service March 12, 2022 Coding Level of Care Code 81114 Subseq Hosp Care Lvl 3
[2022-03-12] MEDS: ENOXAPARIN INJ 30 MG/0.3 ML SYR SQ SCH (20:06)
[2022-03-12] MEDS: SERTRALINE HCL 100 MG TABLET PO SCH (20:07)
[2022-03-12] MEDS: PANTOprazole 40 MG TAB PO SCH (20:07)
--- NOTE | 2022-03-13 07:47 | Hospitalist Progress Note ---
Date of Service March 13, 2022 Assessment & Plan (1) Small bowel obstruction: Plan: Pt is a 57 yo female with PMH of ovarian cancer on chemotherapy, carcinomatosis s/p colectomy with ostomy, ascites requiring previous paracentesis, KRISTI, MDD, migraines, and asthma currently admitted for SBO. Partial SBO - CTAP with evidence of partial SBO and sx consistent with SBO (abdominal pain, bloating, nausea) - Cause of SBO could be adhesional due to prior abdominal surgery vs carcinomatosis - General Surgery removed NGT 03/10 AM - Advanced to low fiber diet, tolerating well with some feelings of abdominal fullness - Care previously discussed with pt's oncologist who agrees with conservative management at this time - PRNs- Toradol, Tylenol, Reglan - Pt spoke with nutrition via phone to discuss supplementation and caloric needs Electrolyte Imbalances - Hypokalemia - repleted. Stable at 4.3 - Hypomagnesemia - repleted. Stable at 1.7 as of yesterday - Hyponatremia- 130 today. 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 Villagran at [facility] and Dr. Maldonado/Sravani Lemons at [facility] - Implications of small bowel obstruction in the setting of ovarian cancer discussed with patient Depression, Anxiety - Zoloft 200 mg daily - Ativan 1mg q6 scheduled for anxiety. Switched from prn to scheduled due to increased anxiety at request of patient with caution. Age=57 with late stage ovarian cancer and limited other comorbid conditions. Pt feels this has helped with her anxiety - suggested to pt's PCP (Alex) to consider mirtazapine as antidepressant and appetite stimulant Migraines - Home topamax 100 mg PRN GERD - Continue pantoprazole 40 mg PO BID - Pepcid daily PRN Asthma - Continue home Qvar inhaler daily, Flonase BID - Holding home Montelukast (2) Anxiety and depression: (3) GERD (gastroesophageal reflux disease): (4) Ovarian cancer: (5) Asthma: Plan FEN: low fiber diet Code status: Full DVT ppx: Lovenox 30 mg daily Isolation: None Dispo: d/c home today Admission and Anticipated Discharge Date Admission Date: March 06, 2022 Subjective Pt a 57 yo female with PMH of ovarian cancer on chemotherapy, carcinomatosis s/p colectomy with ostomy, ascites requiring previous paracentesis, KRISTI, MDD, migraines, and asthma. Patient was recently hospitalized at [facility] 02/26-03/03 for large bowel obstruction and presented 03/06 with increased nausea, abdominal pain, back pain. She is currently admitted for a partial small bowel obstruction. 03/13/2022: This morning she is feeling well. She has been able to eat small amounts of food with the low fiber diet. She feels that she becomes full quickly and this fullness can sometimes last for hours. The sensation of fullness seems to build throughout the day and resets itself overnight. She denies fever, chills, chest pain, SOB, and bleeding. Her ostomy output has returned to normal color with no blood (she noted green stool yesterday). She spoke with a plant biology professor yesterday about supplements for her diet and she felt this conversation was helpful. Physical Exam Constitutional: NAD, afebrile, vitals WNL Respiratory: CTA bilaterally. No rhonchi, rales, or crackles. No increased work of breathing. Cardiovascular: RRR. No murmur noted. Normal S1 and S2. No LL edema. Gastrointestinal (Abdomen): Nontender, +BS. No masses noted. Ostomy site looks clean and nonerythematous. Results & Data Results & Data ([facility]) Vital Signs (Past 12 Hours) Vital Signs Temp Pulse Resp BP Pulse Ox O2 Del Method 03/12/22 20:05 Room Air 03/12/22 21:50 36.8 C 70 16 126/74 96 Room Air Resident Activity Tracking Resident Involvement: Resident Care Provided Care Provided: Adult Hospital Medicine (1) Ovarian cancer Laterality: unspecified laterality Qualified Code(s): C56.9 - Malignant neoplasm of unspecified ovary
[2022-03-13] MEDS: SENNOSIDES 8.8 MG/5 ML UDC PO SCH (08:51)
[2022-03-13] MEDS: PANTOprazole 40 MG TAB PO SCH (08:51)
[2022-03-13] MEDS: FLUTICASONE PROPIONATE NA SPR 16 GM BTL SCH (08:53)
[2022-03-13] MEDS: FLUTICASONE FUROATE 100MCG 14 PUFFS/INHALER INH SCH (08:53)
[2022-03-13 09:11] LABS: Basophils # (auto) 0.04 K/uL (0-0.2); Basophils % (auto) 1.7 %; Eosinophils # (auto) 0.04 K/uL (0-0.50); Eosinophils % (auto) 1.7 %; Hematocrit (blood only) 31.1 % (34.1-44.9); Hemoglobin 10.2 g/dl (12.0-16.0); Lymphocytes # (auto) 0.96 K/uL (1.2-3.4); Lymphocytes % (auto) 39.7 %; Mean Corpuscular Hemoglobin 31.9 pg (25.0-34.0); Mean Corpuscular Hgb Conc 32.8 g/dL (32.0-36.0); Mean Corpuscular Volume 97.2 fL (80.0-100.0); Mean Platelet Volume 9.8 fL (9.4-12.3); Monocytes # (auto) 0.21 K/uL (0.24-0.82); Monocytes % (auto) 8.7 %; Neutrophils # (auto) 1.17 K/uL (1.4-6.5); Neutrophils % (auto) 48.2 %; Platelet Count 325 K/uL (130-400); RDW Coefficient of Variation 14.8 % (11.5-14.5); White Blood Count 2.42 K/ul (4.8-10.8)
[2022-03-13 09:31] LABS: Albumin Globulin Ratio 1.5 (0.9-2); Albumin Level 3.5 gm/dl (3.4-5.0); BUN Creatinine Ratio 9.6 (10-20); Bilirubin,Total 0.3 mg/dl (0.2-1.0); Calcium 8.7 mg/dl (8.5-10.1); Creatinine Clr Calc Pharmacy 77.6 ml/min; Est GFR (African American) 124.7 ml/min; Est GFR (Non-African American) 107.6 ml/min; Globulin 2.3 gm/dl (2.5-4.0); Potassium 4.3 mmol/L (3.5-5.1); Total Protein 5.8 gm/dl (6.0-8.3)
--- NOTE | 2022-03-13 09:58 | Surgery Progress Note ---
Date of Service March 13, 2022 Assessment & Plan (1) Small bowel obstruction: Plan: Patient with history of metastatic ovarian cancer here with SBO NGT was removed on 03/10 and diet has been advanced slowly over the wknd Pt notices feeling full after eating, but is tolerating a diet without abdominal pain, vomiting, or worsening nausea Abdomen is soft, non tender, non distended. Reports + stool--ostomy bag was last emptied this AM Instructed pt to continue to go slow with oral intake Dispo planning per medicine Admission and Anticipated Discharge Date Admission Date: March 06, 2022 Supervising Physician Co-Signing Physician Notes Dr. Trotterpatient appears to be stable and much better than the last time she was discharged She currently is getting Senokot liquid and I did give her 2 doses of mineral oil which she may consider taking at home 2-3 times a week Discharge home when okay with medical team For follow-up with her surgical oncologist in [place] and also oncology here at [facility] Subjective Patient feeling okay. No abdominal pain/vomiting. Reports feeling some fullness after eating that takes some time to resolve. Overall feeling better than admission. Is having + stool from ostomy, last emptied this AM. Physical Exam Physical Exam: awake/alert Gastrointestinal (Abdomen): Inspection/Auscultation: abdomen not distended Percussion/Palpation: abdomen soft; abdomen nontender + ostomy Results & Data ([place]) Vital Signs (Past 12 Hours) Vital Signs Temp Pulse Resp BP Pulse Ox O2 Del Method 03/13/22 09:40 Room Air 03/13/22 08:18 36.9 C 79 16 130/79 98 Room Air PG Care Time/CCT Total # of Minutes Spent Total Time Spent with Patient: Total time spent is greater than 50% in coordination of care (as documented) at patient's floor/unit and/or counseling patient: Coding Level of Care Code 47209 Subseq Hosp Care Lvl 1 Diagnoses Small bowel obstruction K56.609
--- NOTE | 2022-03-13 10:09 | History & Physical Report ---
Date of Service March 13, 2022 Assessment & Plan Admission and Anticipated Discharge Date Admission Date: March 06, 2022 History of Present Illness Primary Care Provider: Saida Senior MD Allergies Allergy/AdvReac Type Severity Reaction Status Date / Time doxycycline Allergy Intermediate RASH Verified 03/06/22 17:42 gluten AdvReac Intermediate Abdominal Verified 03/06/22 17:42 Pain lactose AdvReac Intermediate Abdominal Verified 03/06/22 17:42 Pain Penicillins AdvReac Intermediate Nausea, Verified 03/06/22 17:42 diarrhea Home Medications Medication Instructions Recorded Confirmed Type pantoprazole 40 mg granules 40 mg PO QAM 07/28/19 03/06/22 History delayed-release for susp in packet (Protonix) montelukast 10 mg tablet 10 mg PO QPM 11/05/19 03/06/22 History sertraline 100 mg tablet 200 mg PO QPM 11/05/19 03/06/22 History dapsone 25 mg tablet 25 mg PO BID 04/13/20 03/06/22 History famotidine 20 mg tablet 20 mg PO QAM 04/13/20 03/06/22 History cholecalciferol (vitamin D3) 50 50 mcg PO QAM 05/11/20 03/06/22 History mcg (2,000 unit) capsule fexofenadine 180 mg tablet 180 mg PO HS 05/11/20 03/06/22 History (Liana Allergy) fluticasone propionate 50 1 spray intranasal BID 05/11/20 03/06/22 History mcg/actuation nasal spray,suspension (Flonase Allergy Relief) topiramate 100 mg tablet (Topamax) 100 mg PO QPM 05/11/20 03/06/22 History beclomethasone dipropionate 40 1 inh inhalation QAM 05/12/20 03/06/22 History mcg/actuation HFA breath activated aerosol (Qvar RediHaler) fremanezumab-vfrm 225 mg/1.5 mL 225 mg subcut MONTHLY 05/12/20 03/06/22 History subcutaneous auto-injector (Ajovy) prochlorperazine maleate 5 mg 5 mg PO BID PRN Nausea 05/12/20 03/06/22 History tablet (Compazine) acetaminophen 325 mg tablet 325 mg PO QID PRN Pain 08/13/20 03/06/22 History (Tylenol) cueolblhdoxrl-etojpviwoxxuhorloi-epgfwplgjbgng 1 cap PO DAILY PRN MIGRAINES 08/13/20 03/06/22 History capsule ondansetron HCl 4 mg tablet 4 mg PO Q6H PRN Nausea 08/25/21 03/06/22 History Muscle Relaxant Pill 1 tab PO DIRECTED PRN Muscle 03/06/22 03/06/22 History Pain oxycodone-acetaminophen 5 mg-325 1 tab PO Q4 PRN Pain 03/06/22 03/06/22 History mg tablet Past Med/Surg History Medical History Anxiety and depression Asthma LAST USED RESCUE INHALER>BEEN A WHILE Bilateral tinnitus Colostomy present Environmental allergies GERD (gastroesophageal reflux disease) Gluten intolerance History of anorexia nervosa History of ileus S/P HYSTERECTOMY Itching REASON FOR DAPSONE Low iron HX IRON INFUSION Migraine Ovarian cancer PRESENT DX>REASON FOR A-PORT (HAS RECIEVED 6 CYCLES OF CHEMO 1 YEAR AGO) Surgical History H/O abdominal surgery AT [facility] 07/20/21 TO REMOVE CANCER IN ABDOMEN/COLON RESECTION WITH COLOSTOMY & INTRAPERITONEAL CHEMO H/O total hysterectomy + REMOVAL OVARIAN CYSTECTOMY History of colonoscopy History of esophagogastroduodenoscopy (EGD) History of knee surgery LEFT PATELLA REPAIR Nausea and vomiting after administration of anesthetic agent Port-A-Cath in place (08/30/21) Insertion Access Port with Fluoroscopy(Right) - Ilan Vee DO 08/30/2021 Bath teeth removed Family History Grandmother (Maternal) Breast cancer Hypertension Grandfather (Maternal) No problems noted. 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 Seatbelt Use: always Sunscreen Use: Yes Assistive Devices: None Results & Data Results & Data ([facility]) Vital Signs (Past 12 Hours) Vital Signs Temp Pulse Resp BP Pulse Ox O2 Del Method 03/13/22 09:40 Room Air 03/13/22 08:18 36.9 C 79 16 130/79 98 Room Air Code Status & VTE Plan VTE Prophylaxis Plan VTE Prophylaxis will be ordered: Yes
[2022-03-13] MEDS: LORazepam 1 MG in SYRINGE 0.5 ML IV PRN (12:23)
[2022-03-13] MEDS: D5W AND 1/2NSS + 20MEQ KCL 20 MEQ/1,000 ML BAG IV SCH (12:27)
--- NOTE | 2022-03-13 14:33 | Discharge Summary ---
Date of Service March 13, 2022 Admission HPI Per Admitting Provider 57 yo F with PMH ovarian cancer currently receiving chemotherapy, carcinomatosis s/p colectomy with ostomy, ascites with previous paracentesis, KRISTI, MDD, migraines, asthma and recent [facility] hospitalization 02/26-03/03 for large bowel obstruction presenting with increased nausea, abdominal pain, back pain. Pt discharged from hospital on 03/03 after resolution of LBO with conservative management. Notes since discharge, her upper-central abdominal pain has continued and nausea failed to resolve with PRN Zofran. Has had largely constant nausea but without any episodes of emesis. This morning, pt awoke with severe L lower back pain and migraine. Pt has also experienced significant psychosocial distress but no acute suicidality during this time and feels it may be due to not receiving her Zoloft and Topamax while hospitalized last week. Does not note any changes in ostomy output during this time. She denies any fever, chills, chest pain, dyspnea, diarrhea, constipation. Upon arrival, vitals notable for slightly elevated BP 150s/90s and 140s/80s. Afebrile, HRs 90s-low 100s, no tachypnea or hypoxia. Labs notable for mild hyponatremia to 133, urinalysis with high WBCs, leukocyte esterase. Lipase wnl. Multiple imaging studies performed in ED -Head CT, lumbar spine CT normal -CTAP demonstrating resolution of colonic distention from previous LBO but new marked distention of stomach and duodenum, dilated bowel loops without clear transition point suggestive of partial SBO Pt given 1L NSS bolus in ED, along with Dilaudid 0.25 mg IV for pain, Zofran 4 mg IV for nausea. General surgery consulted with recommendation for NG tube, subsequent KUB demonstrated NG tube not reaching bowel- requiring advancement 5- 10 cm. Principal Diagnosis partial SBO Discharge Exam Constitutional NAD, vitals WNL Respiratory CTA bilaterally. No rhonchi, wheezing, or crackles. No increased work of breathing. Cardiovascular RRR. No murmurs noted. S1 and S2 normal. Gastrointestinal (Abdomen) Nontender, + BS. No masses noted. Ostomy site clean and non erythematous. Discharge Data Allergies Allergy/AdvReac Type Severity Reaction Status Date / Time doxycycline Allergy Intermediate RASH Verified 03/06/22 17:42 gluten AdvReac Intermediate Abdominal Verified 03/06/22 17:42 Pain lactose AdvReac Intermediate Abdominal Verified 03/06/22 17:42 Pain Penicillins AdvReac Intermediate Nausea, Verified 03/06/22 17:42 diarrhea Ordered Studies 03/06/22 14:22 CT abd pelvis IV con only Stat CT head/brain wo con Stat CT lumbar spine w con Stat Hospital Course (1) Small bowel obstruction: Pt is a 57 yo female with PMH of ovarian cancer on chemotherapy, carcinomatosis s/p colectomy with ostomy, ascites requiring previous paracentesis, KRISTI, MDD, migraines, and asthma who was admitted for a partial SBO. Partial SBO - On admission, CTAP with evidence of partial SBO and sx consistent with SBO (abdominal pain, bloating, nausea) - Cause of SBO likely adhesional due to prior abdominal surgery vs carcinomatosis - Kept NPO, on IVF and NGT placed. - Care discussed with pt's oncologist who agrees with conservative management - General Surgery removed NGT 03/10 AM - Advanced from NPO, clear fluids + TPN, and finally to low fiber diet - Tolerated low fiber diet well with some abdominal fullness upon d/c Severe Protien/calorie malnutrion - Nutrition consulted. Pt spoke with nutrition via phone to discuss supplementation and caloric needs - PCP could consider adding mirtazepine to help with appetite stimulation in setting of co-existing depression/anxiety Electrolyte Imbalances - Hypokalemia/Hypomagnesemia - repleted. Stable thereafter - Hyponatremia- 130 on day of discharge. should be followed as outpatient. 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 Villagran at [facility] and Dr. Maldonado/Sravani Lemons at [facility] - Implications of small bowel obstruction in the setting of ovarian cancer discussed with patient Depression, Anxiety - Zoloft 200 mg daily - Consider addition of mirtazapine as antidepressant and appetite stimulant - Ativan 1mg q6 scheduled for anxiety. Switched from prn to scheduled due to increased anxiety at request of patient with caution. Age=57 with late stage ovarian cancer and limited other comorbid conditions. Pt feels this has helped with her anxiety - Small rx of lorazepam given on discharge. Close outpatient follow up. Migraines - Continue home topamax 100 mg PRN GERD - Continue pantoprazole 40 mg PO BID - Pepcid daily PRN Asthma - Continue home Qvar inhaler daily, Flonase BID - Continue home Montelukast (2) Anxiety and depression: (3) GERD (gastroesophageal reflux disease): (4) Ovarian cancer: (5) Asthma: Plan FEN: low fiber diet Code status: Full Dispo: d/c home today Total Time Total Time Spent Total Time Spent (In Minutes): See attending attestation Discharge Plan Discharge Items Patient Disposition: Home - Self-Care Reason For Visit: PARTIAL SBO Discharge Diagnosis: same as above Activity: Per Instructions section Non-emergency contact: Primary Care Provider and Oncologist Call non-emergency contact if: you have any medication questions, your symptoms worsen and your pain is not controlled Follow-up/Referrals: Saida Senior MD [Primary Care Provider] - Diet: Low Fiber Addtl Attending Provider Instructions: You were admitted to the hospital for a small bowel obstruction. In the hospital, you were initially placed on NPO status (nothing per mouth) and nasogastric tube (tube through your nose into your stomach) was placed for suctioning of your GI tract contents to avoid further obstruction. As you improved, your diet was progressed to clear fluids with TPN. On discharge from the hospital, you should continue a lower fiber diet at home. As discussed during your stay, your recurrent obstructions may be caused by either adhesions from prior surgeries or may be related to your cancer -- as such, your Surgical Oncologist was contacted and updated on your condition. He recommended that you follow up in his office soon after discharge; please call their office to get scheduled. Please continue to take all your home medications as before your hospital admission. Plan to follow up with your primary care provider within 1 week of discharge. Pending Studies at Discharge: No Stand-Alone Forms: My [employer], Smoking Cessation Medications and DC Order Prescriptions: New lorazepam 0.5 mg tablet 0.5 mg PO DAILY PRN (Reason: anxiety) Qty: 7 0RF Continued cholecalciferol (vitamin D3) 50 mcg (2,000 unit) capsule 50 mcg PO QAM fluticasone propionate [Flonase Allergy Relief] 50 mcg/actuation spray,suspension 1 spray intranasal BID Rx Instructions: administer into each nostril fexofenadine [Liana Allergy] 180 mg tablet 180 mg PO HS topiramate [Topamax] 100 mg tablet 100 mg PO QPM [id number] Capsule 1 cap PO DAILY PRN (Reason: MIGRAINES) Rx Instructions: MIDRIN acetaminophen [Tylenol] 325 mg tablet 325 mg PO QID PRN (Reason: Pain) Protonix [address] for susp in packet 40 mg PO QAM sertraline 100 mg tablet 200 mg PO QPM montelukast 10 mg tablet 10 mg PO QPM prochlorperazine maleate [Compazine] 5 mg Tablet 5 mg PO BID PRN (Reason: Nausea) Qvar RediHaler 40 mcg/actuation Hfa Aerosol Breath Activated 1 inh INHALATION QAM Ajovy Autoinjector 225 mg/1.5 mL Auto-Injector 225 mg SUBCUT MONTHLY Rx Instructions: RECIEVES 1 X MONTHLY famotidine 20 mg tablet 20 mg PO QAM dapsone 25 mg tablet 25 mg PO BID ondansetron HCl 4 mg Tablet 4 mg PO Q6H PRN (Reason: Nausea) oxycodone-acetaminophen 5-325 mg tablet 1 tab PO Q4 PRN (Reason: Pain) Muscle Relaxant Pill 1 tab PO DIRECTED PRN (Reason: Muscle Pain) Discharge Orders: Discharge Order (Routine); Ordered 03/13/22 Ordered By: Charu Delacruz Admission Data Admit Date/Time: 03/06/22 19:01 Attending Provider: Charu Delacruz Admit Provider: Barbie Leung Primary Care Provider: Saida Senior Other Providers: Dg Amaya Supervising Physician Co-Signing Physician Notes Resident Physician Supervision Note: I independently interviewed and examined the patient and verified the francis history and physical, reviewed labs and image studies and agree with resident Dr. Griggs findings and care plan. Resident Activity Tracking Resident Involvement: Resident Care Provided Care Provided: Adult Hospital Medicine
[2022-03-13] MEDS ORDERED: HEPARIN 100 UNIT/ML 5ML FLUSH FLUSH PRN (14:37)
[2022-03-13 15:11] VITALS: BP 128/72; PULSE 92; TEMP 98.8; O2SAT 97
== END 2022-03-13 16:50 | disposition home or self-care (01) | DRG 388 ==
LOC: ED 13:21 → SUATTDRO 19:01 → EDINP 19:01 → 3E 19:50
DX: G43.909 Migraine, unspecified, not intractable, without status migrainosus; F32.9 Major depressive disorder, single episode, unspecified; Z91.018 Allergy to other foods; C56.9 Malignant neoplasm of unspecified ovary; E11.641 Type 2 diabetes mellitus with hypoglycemia with coma; E43 Unspecified severe protein-calorie malnutrition; J45.909 Unspecified asthma, uncomplicated; Z88.0 Allergy status to penicillin; Z93.3 Colostomy status; K56.600 Partial intestinal obstruction, unspecified as to cause; Z80.3 Family history of malignant neoplasm of breast; Z79.51 Long term (current) use of inhaled steroids; Z79.899 Other long term (current) drug therapy; Z82.5 Family history of asthma and other chronic lower respiratory diseases; Z88.1 Allergy status to other antibiotic agents; F41.1 Generalized anxiety disorder; K21.9 Gastro-esophageal reflux disease without esophagitis; E87.1 Hypo-osmolality and hyponatremia

== ENCOUNTER 2022-05-07 19:26 | Inpatient (IN) ==
[2022-05-07] MEDS ORDERED: SODIUM CHLORIDE 0.9% 500 ML IV STA (19:45)
[2022-05-07] MEDS ORDERED: HYDROmorphone INJ 0.5 MG/0.5 ML SYR IV STA ×2 (20:01→21:13)
[2022-05-07] MEDS ORDERED: ONDANSETRON INJ 2 MG/ML 2 ML VIAL IV STA (20:01)
--- NOTE | 2022-05-07 20:02 | Emergency Department Note ---
Impression & Plan SBO (small bowel obstruction), Ovarian cancer, Nausea & vomiting ED Provider Note Provider: Duglas Anderson MD DATE OF SERVICE: 05/07/2022 CHIEF COMPLAINT: Nausea and vomiting, abdominal pain HISTORY OF PRESENT ILLNESS: Patient is an unfortunate 57-year-old female with a history of ovarian cancer status post ostomy with history of bowel obstruction as well as during chemotherapy presenting here today reporting onset over the last 5 days of some nausea particularly worsened last night with firmness and pain in the upper abdomen developing. Little output from the ostomy today. This was placed about 9 months ago. History of lower bowel and then small bowel obstruction in February; she states this feels similar to the small bowel obstruction. Denies any trauma or fevers. Not a lot of intake. Had to take some of her Percocet as well as home Compazine and Zofran today with minimal improvement of symptoms. Some pain in the low back as well which she states has happened before. Given concern for small bowel obstruction came here for further evaluation. REVIEW OF SYSTEMS: A total of 10 review of systems was obtained and negative except as stated above in the HPI. PAST MEDICAL HISTORY: As noted above MEDICATIONS: Reviewed home medications and had chemotherapy infusion 2 days ago SOCIAL HISTORY: Non-smoker, PHYSICAL EXAM: GENERAL: alert and oriented in no acute distress on stretcher although fatigued appearing and cachectic Head: normocephalic and atraumatic EYES: No injection, discharge or icterus. NECK: Trachea midline. LUNGS: Airway patent. No retractions or tachypnea HEART: Regular rate and rhythm. Right upper chest wall port noted subcutaneously. ABDOMEN: Mildly firm with some upper abdominal tenderness. Mid to left mid abdominal ostomy in place with minimal output in bag. SKIN: Acyanotic, warm, dry, without rashes EXTREMITIES: Without swelling, tenderness or deformity NEUROLOGICAL: No focal deficits. No aphasia. No facial droop or slurred speech. . EK bpm normal sinus rhythm. No PVC or PAC. No acute ST segment elevation or depression with QTC of 441. CONTINUOUS CARDIAC MONITORING: was ordered and showed a heart rate of 80s-90s bpm in sinus rhythm Patient's laboratory studies and imaging reviewed. Differential includes Appendicitis, infections, diverticulitis, UTI, obstruction, mesenteric ischemia, aortic pathology, inflammatory bowel disease, renal colic, PUD, pancreatitis, biliary pathology, hernia, volvulus, const ipation, as well as other pathologies. IMPRESSION/MEDICAL DECISION MAKING: Patient symptoms reportedly seem like recurrence of her history of SBO. Will can be a little lower given a CT scan to evaluate for this. Given some symptomatic treatment. Given a small mount of IV fluid. Lower suspicion this is cardiac or related to hepatitis or pancreatitis. Blood work here without significant lipase elevation. No significant LFT abnormalities. Sodium 133 but no severe electrolyte abnormalities with stable renal function. White blood cell count interestingly is significantly elevated at 53,000. Patient recently with leukopenia. Discussed with patient she did recently receive Neulasta and this likely explains this. CT scan report as below. Obvious of obstruction. NG tube will be placed for decompression. Given complaints will bring her to the hospital for further care. DIAGNOSIS: SBO, ovarian cancer and vomiting DISPOSITION: Hospitalist will evaluate Patient was agreeable with this plan. Preliminary Findings Only See Final Report For Complete Findings CT ABDOMEN & PELVIS With Contrast: Impression: There is air distention of the distal thoracic esophagus as well as the entire stomach. There is moderate dilatation of small bowel loops in the abdomen and pelvis which could be due to partial distal small bowel obstruction Moderate ascites Radiologist: Garcia Delacrzu MD Study ready at 21:17 and initial results transmitted at 21:34 Past Med/Surg History Medical History Abdominal distension Anxiety and depression Asthma Asthma LAST USED RESCUE INHALER>BEEN A WHILE Bilateral tinnitus Colostomy present Environmental allergies GERD (gastroesophageal reflux disease) Gluten intolerance History of anorexia nervosa History of ileus S/P HYSTERECTOMY Itching REASON FOR DAPSONE Large bowel obstruction Low iron HX IRON INFUSION Migraine Ovarian cancer PRESENT DX>REASON FOR A-PORT (HAS RECIEVED 6 CYCLES OF CHEMO 1 YEAR AGO) Small bowel obstruction Small bowel obstruction Surgical History H/O abdominal surgery AT [facility] 07/20/21 TO REMOVE CANCER IN ABDOMEN/COLON RESECTION WITH COLOSTOMY & INTRAPERITONEAL CHEMO H/O total hysterectomy + REMOVAL OVARIAN CYSTECTOMY History of colonoscopy History of esophagogastroduodenoscopy (EGD) History of knee surgery LEFT PATELLA REPAIR Nausea and vomiting after administration of anesthetic agent Port-A-Cath in place (08/30/21) Insertion Access Port with Fluoroscopy(Right) - [facility] 08/30/2021 [place] teeth removed Family History Grandmother (Maternal) Breast cancer Hypertension Grandfather (Maternal) No problems noted. Father Hearing loss Mother Hearing loss Allergies Asthma Sister Allergies Asthma Other No family history of adverse response to anesthesia No family history of bleeding disorder Denies family history of Heart disease Cancer Stroke Social History Smoking Status: Never smoker Second Hand Exposure: No; Hx Alcohol Use: No Hx Substance Use: No Preferred Language: Portuguese Communication Ability: Effective Visual Impairment: Limited Hearing Ability: Normal Budget Accountant Required: No Beliefs That Will Affect Care: None marital status: Current Living Situation: Spouse current occupational status: employed and retired 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 Seatbelt Use: always Sunscreen Use: Yes Do you think of yourself as: straight/heterosexual Assistive Devices: Glasses Allergies Allergies Allergy/AdvReac Type Severity Reaction Status Date / Time doxycycline Allergy Intermediate RASH Verified 05/07/22 21:16 gluten AdvReac Intermediate Abdominal Verified 05/07/22 21:16 Pain lactose AdvReac Intermediate Abdominal Verified 05/07/22 21:16 Pain Penicillins AdvReac Intermediate Nausea, Verified 05/07/22 21:16 diarrhea Home Meds Home Medications Medication Instructions Recorded Confirmed pantoprazole 40 mg granules 40 mg PO QAM 07/28/19 05/07/22 delayed-release for susp in packet (Protonix) montelukast 10 mg tablet 10 mg PO QPM 11/05/19 05/07/22 sertraline 100 mg tablet 200 mg PO QPM 11/05/19 05/07/22 dapsone 25 mg tablet 25 mg PO BID 04/13/20 05/07/22 famotidine 20 mg tablet 20 mg PO QAM 04/13/20 05/07/22 cholecalciferol (vitamin D3) 50 50 mcg PO QAM 05/11/20 05/07/22 mcg (2,000 unit) capsule fexofenadine 180 mg tablet 180 mg PO HS 05/11/20 05/07/22 (Liana Allergy) fluticasone propionate 50 1 spray intranasal BID 05/11/20 05/07/22 mcg/actuation nasal spray,suspension (Flonase Allergy Relief) topiramate 100 mg tablet (Topamax) 100 mg PO QPM 05/11/20 05/07/22 beclomethasone dipropionate 40 1 inh inhalation QAM 05/12/20 05/07/22 mcg/actuation HFA breath activated aerosol (Qvar RediHaler) fremanezumab-vfrm 225 mg/1.5 mL 225 mg subcut MONTHLY 05/12/20 05/07/22 subcutaneous auto-injector (Ajovy) prochlorperazine maleate 5 mg 5 mg PO BID PRN Nausea 05/12/20 05/07/22 tablet (Compazine) acetaminophen 325 mg tablet 325 mg PO QID PRN Pain 08/13/20 05/07/22 (Tylenol) xzynbgnjiwynb-hknfeppukosnrypzec-tmhqsynfsckap 1 cap PO DAILY PRN MIGRAINES 08/13/20 05/07/22 capsule ondansetron HCl 4 mg tablet 4 mg PO Q6H PRN Nausea 08/25/21 05/07/22 oxycodone-acetaminophen 5 mg-325 1 tab PO Q4 PRN Pain 03/06/22 05/07/22 mg tablet polyethylene glycol 3350 17 17 g PO DAILY 03/23/22 05/07/22 gram/dose oral powder (Miralax) sennosides 8.6 mg capsule (senna) 8.6 mg PO DAILY 03/23/22 05/07/22 levothyroxine 25 mcg tablet 25 mcg PO DAILY 04/12/22 05/07/22 Previous Rx's Medication Instructions Recorded lorazepam 0.5 mg tablet 0.5 mg PO BID PRN anxiety #30 tabs 03/24/22 nystatin 100,000 unit/gram topical 1 applic topical .COMPLEX #60 grams 05/04/22 powder Results & Data (ED) Vital Signs Vital Signs - 24 hr 05/07/22 19:29 05/07/22 19:26 05/07/22 20:50 Temperature 36.7 C 36.4 C L Temperature Source Temporal Artery Scan Oral Pulse Rate 112 H Pulse Rate [Left Finger] 95 H 88 Pulse Rhythm [Left Finger] Regular Regular Pulse Strength [Left Finger] Normal Normal Respiratory Rate 18 16 16 Respiratory Effort / Characteristics Non-Labored Spontaneous Non-Labored Respiratory Depth Normal Normal Normal Respiratory Pattern Regular Blood Pressure 152/95 H Blood Pressure [Left Arm] 163/99 H 167/97 H Blood Pressure Mean 114 Blood Pressure Mean [Left Arm] 120 120 Blood Pressure Position Sitting Pulse Oximetry 98 95 94 Oxygen Delivery Method Room Air Room Air Room Air Sepsis Recent Fever Within 48 Hours No Sepsis New/Unexplained Change in Mental Status No Sepsis Action Taken by Nursing No Action Required 05/07/22 22:00 05/08/22 00:00 Temperature Temperature Source Pulse Rate Pulse Rate [Left Finger] 93 H 75 Pulse Rhythm [Left Finger] Regular Regular Pulse Strength [Left Finger] Normal Respiratory Rate 14 16 Respiratory Effort / Characteristics Spontaneous Respiratory Depth Normal Normal Respiratory Pattern Blood Pressure Blood Pressure [Left Arm] 127/82 113/67 Blood Pressure Mean Blood Pressure Mean [Left Arm] 97 82 Blood Pressure Position Pulse Oximetry 92 97 Oxygen Delivery Method Room Air Sepsis Recent Fever Within 48 Hours Sepsis New/Unexplained Change in Mental Status Sepsis Action Taken by Nursing Laboratory Data Result diagrams: 05/07/22 20:05 05/07/22 20:05 Lab Results 05/07/22 05/07/22 05/07/22 Range/Units 20:05 20:05 Unknown WBC 53.71 H* (4.8-10.8) K/ul RBC 3.50 L (3.93-5.22) M/uL Hgb 11.9 L (12.0-16.0) g/dl Hct 35.8 (34.1-44.9) % MCV 102.3 H (80.0-100.0) fL MCH 34.0 (25.0-34.0) pg MCHC 33.2 (32.0-36.0) g/dL RDW Std Deviation 62.8 H (36.4-46.3) fL RDW Coeff of Risa 16.8 H (11.5-14.5) % Plt Count 246 (130-400) K/uL MPV 10.1 (9.4-12.3) fL Immature Gran % (Auto) 7.3 % Neut % (Auto) 89.2 % Lymph % (Auto) 0.7 % [place] % (Auto) 2.4 % Eos % (Auto) 0.0 % Baso % (Auto) 0.4 % Neut # (Auto) 47.94 H (1.4-6.5) K/uL Lymph # (Auto) 0.39 L (1.2-3.4) K/uL [place] # (Auto) 1.28 H (0.24-0.82) K/uL Eos # (Auto) 0.01 (0-0.50) K/uL Baso # (Auto) 0.19 (0-0.2) K/uL Immature Gran # (Auto) 3.90 H (0.00-0.02) K/uL Polychromasia 1+ Sodium 133 L (136-145) mmol/L Potassium 3.7 (3.5-5.1) mmol/L Chloride 100 (98-107) mmol/L Carbon Dioxide 22 (21-32) mmol/L Anion Gap 11 (3-11) BUN 11 (6-23) mg/dl Creatinine 0.69 (0.6-1.2) mg/dl Est Cr Clr Drug Dosing 57.7 ml/min Est GFR ( Amer) 113.6 ml/min Est GFR (Non-Af Amer) 98.0 ml/min BUN/Creatinine Ratio 15.9 (10-20) Glucose 148 H (70-99(Fasting)) mg/dl Calcium 9.6 (8.5-10.1) mg/dl Total Bilirubin 0.8 (0.2-1.0) mg/dl AST 23 (13-39) U/L ALT 13 (7-52) U/L Alkaline Phosphatase 135 H (34-104) U/L Troponin I High Sens 9.7 (0-14) pg/ml Total Protein 7.1 (6.0-8.3) gm/dl Albumin 4.5 (3.4-5.0) gm/dl Globulin 2.6 (2.5-4.0) gm/dl Albumin/Globulin Ratio 1.7 (0.9-2) Lipase 91 H (11-82) U/L Urine Color Urine Appearance (Clear) Urine pH (4.5-7.5) Ur Specific [place] (1.000-1.030) Urine Protein (Negative) Urine Glucose (UA) (Negative) Urine Ketones (Negative) Urine Blood (Negative) Urine Nitrite (Negative) Urine Bilirubin (Negative) Urine Urobilinogen (Negative) Ur Leukocyte Esterase (Negative) Urine WBC (Auto) (0-5) /hpf Urine RBC (Auto) (0-4) /hpf U Hyaline Cast (Auto) (0-5) /lpf U Epithel Cells (Auto) (0-5) /lpf Urine Bacteria (Auto) (Negative) SARS-CoV-2, RNA, NAAT NEGATIVE (NEGATIVE) 05/07/22 Range/Units Unknown WBC (4.8-10.8) K/ul RBC (3.93-5.22) M/uL Hgb (12.0-16.0) g/dl Hct (34.1-44.9) % MCV (80.0-100.0) fL MCH (25.0-34.0) pg MCHC (32.0-36.0) g/dL RDW Std Deviation (36.4-46.3) fL RDW Coeff of Risa (11.5-14.5) % Plt Count (130-400) K/uL MPV (9.4-12.3) fL Immature Gran % (Auto) % Neut % (Auto) % Lymph % (Auto) % [place] % (Auto) % Eos % (Auto) % Baso % (Auto) % Neut # (Auto) (1.4-6.5) K/uL Lymph # (Auto) (1.2-3.4) K/uL [place] # (Auto) (0.24-0.82) K/uL Eos # (Auto) (0-0.50) K/uL Baso # (Auto) (0-0.2) K/uL Immature Gran # (Auto) (0.00-0.02) K/uL Polychromasia Sodium (136-145) mmol/L Potassium (3.5-5.1) mmol/L Chloride (98-107) mmol/L Carbon Dioxide (21-32) mmol/L Anion Gap (3-11) BUN (6-23) mg/dl Creatinine (0.6-1.2) mg/dl Est Cr Clr Drug Dosing ml/min Est GFR ( Amer) ml/min Est GFR (Non-Af Amer) ml/min BUN/Creatinine Ratio (10-20) Glucose (70-99(Fasting)) mg/dl Calcium (8.5-10.1) mg/dl Total Bilirubin (0.2-1.0) mg/dl AST (13-39) U/L ALT (7-52) U/L Alkaline Phosphatase (34-104) U/L Troponin I High Sens (0-14) pg/ml Total Protein (6.0-8.3) gm/dl Albumin (3.4-5.0) gm/dl Globulin (2.5-4.0) gm/dl Albumin/Globulin Ratio (0.9-2) Lipase (11-82) U/L Urine Color Dark Yellow Urine Appearance Clear (Clear) Urine pH 5.5 (4.5-7.5) Ur Specific [place] 1.039 H (1.000-1.030) Urine Protein 1+ H (Negative) Urine Glucose (UA) Negative (Negative) Urine Ketones Trace H (Negative) Urine Blood Negative (Negative) Urine Nitrite Negative (Negative) Urine Bilirubin 1+ H (Negative) Urine Urobilinogen Negative (Negative) Ur Leukocyte Esterase Negative (Negative) Urine WBC (Auto) 1-5 (0-5) /hpf Urine RBC (Auto) 0-4 (0-4) /hpf U Hyaline Cast (Auto) 5-10 H (0-5) /lpf U Epithel Cells (Auto) 10-20 H (0-5) /lpf Urine Bacteria (Auto) Negative (Negative) SARS-CoV-2, RNA, NAAT (NEGATIVE) Administered Medications Discontinued Medications Hydromorphone HCl (Hydromorphone Inj 0.5 Mg/0.5 Ml Syr) 0.5 mg IV NOW STA Stop: 05/07/22 20:02 Last Admin: 05/07/22 20:11 Dose: 0.5 mg Documented By: JARRELL Hydromorphone HCl (Hydromorphone Inj 0.5 Mg/0.5 Ml Syr) 0.5 mg IV NOW STA Stop: 05/07/22 21:14 Last Admin: 05/07/22 21:21 Dose: 0.5 mg Documented By: JARRELL Sodium Chloride (Nss) 500 mls @ 999 mls/hr IV .Q31M STA Stop: 05/07/22 20:15 Last Infusion: 05/07/22 20:53 Dose: 0 mls/hr Documented By: Admin: 05/07/22 20:12 Dose: 999 mls/hr Documented By: JARRELL Ioversol (Ioversol 350 Mg 100ml Prefilled Syringe) 87 ml IV ONCE ONE Stop: 05/07/22 21:01 Last Admin: 05/07/22 21:02 Dose: 87 ml Documented By: ALISHA Ondansetron HCl (Ondansetron Inj 2 Mg/Ml 2 Ml Vial) 4 mg IV NOW STA Stop: 05/07/22 20:02 Last Admin: 05/07/22 20:10 Dose: 4 mg Documented By: JARRELL Discharge Plan Visit Data Chief Complaint: Abdominal Pain Stated Complaint: ABDOM PAIN, BLOATING, NAUSEA ED Provider: Duglas Anderson Discharge Problem: SBO (small bowel obstruction), Ovarian cancer, Nausea & vomiting Patient Disposition: Being Evaluated by Hospitalist Discharge Instructions Interventions: ED Discharge Assessment Last Done: 05/08/22 00:05 Forms Stand Alone Forms: [facility] Prescriptions Prescriptions: No Action lorazepam 0.5 mg tablet 0.5 mg PO BID PRN (Reason: anxiety) Qty: 30 0RF cholecalciferol (vitamin D3) 50 mcg (2,000 unit) capsule 50 mcg PO QAM fluticasone propionate [Flonase Allergy Relief] 50 mcg/actuation spray,suspension 1 spray intranasal BID Rx Instructions: administer into each nostril fexofenadine [Liana Allergy] 180 mg tablet 180 mg PO HS topiramate [Topamax] 100 mg tablet 100 mg PO QPM polyethylene glycol 3350 [Miralax] 17 gram/dose powder 17 g PO DAILY senna 8.6 mg capsule 8.6 mg PO DAILY fxazjyz-mizicehwv-axfkbdlsqzfq Capsule 1 cap PO DAILY PRN (Reason: MIGRAINES) Rx Instructions: MIDRIN acetaminophen [Tylenol] 325 mg tablet 325 mg PO QID PRN (Reason: Pain) nystatin 100,000 unit/gram powder 1 applic topical .COMPLEX Qty: 60 0RF Rx Instructions: 1 applic topically with ostomy changes; Protonix [address] for susp in packet 40 mg PO QAM sertraline 100 mg tablet 200 mg PO QPM montelukast 10 mg tablet 10 mg PO QPM prochlorperazine maleate [Compazine] 5 mg Tablet 5 mg PO BID PRN (Reason: Nausea) Qvar RediHaler 40 mcg/actuation Hfa Aerosol Breath Activated 1 inh INHALATION QAM Ajovy Autoinjector 225 mg/1.5 mL Auto-Injector 225 mg SUBCUT MONTHLY Rx Instructions: RECIEVES 1 X MONTHLY famotidine 20 mg tablet 20 mg PO QAM dapsone 25 mg tablet 25 mg PO BID levothyroxine 25 mcg Tablet 25 mcg PO DAILY ondansetron HCl 4 mg Tablet 4 mg PO Q6H PRN (Reason: Nausea) oxycodone-acetaminophen 5-325 mg tablet 1 tab PO Q4 PRN (Reason: Pain) Referrals Referrals: Misbah Mast DO [Primary Care Provider] -
[2022-05-07 20:30] LABS: Albumin Globulin Ratio 1.7 (0.9-2); Albumin Level 4.5 gm/dl (3.4-5.0); BUN Creatinine Ratio 15.9 (10-20); Bilirubin,Total 0.8 mg/dl (0.2-1.0); Calcium 9.6 mg/dl (8.5-10.1); Creatinine Clr Calc Pharmacy 57.7 ml/min; Est GFR (African American) 113.6 ml/min; Globulin 2.6 gm/dl (2.5-4.0); Potassium 3.7 mmol/L (3.5-5.1); Total Protein 7.1 gm/dl (6.0-8.3)
[2022-05-07 20:31] LABS: Hematocrit (blood only) 35.8 % (34.1-44.9); Hemoglobin 11.9 g/dl (12.0-16.0); Mean Corpuscular Hgb Conc 33.2 g/dL (32.0-36.0); Mean Corpuscular Volume 102.3 fL (80.0-100.0); Mean Platelet Volume 10.1 fL (9.4-12.3); Platelet Count 246 K/uL (130-400); RDW Coefficient of Variation 16.8 % (11.5-14.5); RDW Standard Deviation 62.8 fL (36.4-46.3); White Blood Count 53.71 K/ul (4.8-10.8)
[2022-05-07 20:34] LABS: Basophils # (auto) 0.19 K/uL (0-0.2); Basophils % (auto) 0.4 %; Eosinophils # (auto) 0.01 K/uL (0-0.50); Immature Granulocytes % (auto) 7.3 %; Lymphocytes # (auto) 0.39 K/uL (1.2-3.4); Lymphocytes % (auto) 0.7 %; Monocytes # (auto) 1.28 K/uL (0.24-0.82); Monocytes % (auto) 2.4 %; Neutrophils # (auto) 47.94 K/uL (1.4-6.5); Neutrophils % (auto) 89.2 %; Polychromasia 1+
[2022-05-07 20:35] LABS: Troponin I High Sensitivity 9.7 pg/ml (0-14)
[2022-05-07] MEDS ORDERED: IOVERSOL 350 MG 100mL Prefilled Syringe IV ONE (21:00)
--- NOTE | 2022-05-07 21:56 | History & Physical Report ---
Date of Service May 07, 2022 Assessment & Plan (1) SBO (small bowel obstruction): Plan: 57 y/o female w/ PMHx of ovarian cancer s/p ostomy w/ hx of bowel obstruction who presents w/ several days of nausea and upper abd tightness and decreased ostomy output since today. - CT abd suggestive of partial SBO - NPO and NG on low intermittent suction (was low continuous in ED); good initial output - possible contributors: adhesions. also considered narcotic use, though reportedly uses oxycodone rarely - pain control w/ IV tylenol q12h and attempt to minimize narcotic use (2) Abdominal ascites: Plan: - moderate ascites noted on CT abd - receives periodic therapeutic paracentesis as outpatient, has this scheduled for 05/10/22. also has outpatient CT abd w/ IV contrast scheduled for 05/11/22. will f/u w/ oncology team regarding whether to pursue while inpatient, depending on length of stay - considered, but lower suspicion for SBP at this time (3) Leukocytosis: Plan: - significant leukocytosis, could be considered hyperleukocytosis per some criteria. most likely secondary to Neulasta, reportedly administered on 05/05/22 - will check peripheral smear - lower suspicion for infection as per above - consult oncology (4) Ovarian cancer: Plan: - outpatient chemo, last treatment on 05/05/22 - will request outside records from [facility] (5) Failure to thrive: Plan: - in setting of ovarian cancer - TPN carries infection risk; not recommended at this time - nutrition consult (6) Hypothyroidism: Plan: - hold home low dose levothyroxine while NPO (7) Migraine: Plan: - temporarily hold while NPO (8) Anemia: Plan: - chronic, stable. follow cbc (9) Hyponatremia: Plan: - mild, has had intermittently in past. follow BMP (10) Colostomy present: Plan: - routine care (11) Port-A-Cath in place: Plan: - ideally would use only for chemo - while inpatient, use peripheral IVs Plan NPO. Maintenance IV fluids. SQ heparin full code med tele History of Present Illness Chief Complaint: abdominal discomfort Primary Care Provider: Misbah Mast DO 57 y/o female w/ PMHx of ovarian cancer s/p ostomy w/ hx of bowel obstruction who presents w/ several days of nausea and upper abd tightness and decreased ostomy output since today. She describes increased bloating, burping, hiccups, reflux, and tightness in epigastric area. Pain is mainly at low back. She received outpatient chemotherapy and Neulasta 2 day ago. Denies infectious symptoms such as fever/chills, cough, urinary symptoms. She is inquiring about TPN as she is concerned about chronic malnourishment. is present at bedside. ED course: 500mL NSS. Dilaudid 0.5mgx2. Allergies Allergy/AdvReac Type Severity Reaction Status Date / Time doxycycline Allergy Intermediate RASH Verified 05/07/22 21:16 gluten AdvReac Intermediate Abdominal Verified 05/07/22 21:16 Pain lactose AdvReac Intermediate Abdominal Verified 05/07/22 21:16 Pain Penicillins AdvReac Intermediate Nausea, Verified 05/07/22 21:16 diarrhea Home Medications Medication Instructions Recorded Confirmed Type pantoprazole 40 mg granules 40 mg PO QAM 07/28/19 05/07/22 History delayed-release for susp in packet (Protonix) montelukast 10 mg tablet 10 mg PO QPM 11/05/19 05/07/22 History sertraline 100 mg tablet 200 mg PO QPM 11/05/19 05/07/22 History dapsone 25 mg tablet 25 mg PO BID 04/13/20 05/07/22 History famotidine 20 mg tablet 20 mg PO QAM 04/13/20 05/07/22 History cholecalciferol (vitamin D3) 50 50 mcg PO QAM 05/11/20 05/07/22 History mcg (2,000 unit) capsule fexofenadine 180 mg tablet 180 mg PO HS 05/11/20 05/07/22 History (Liana Allergy) fluticasone propionate 50 1 spray intranasal BID 05/11/20 05/07/22 History mcg/actuation nasal spray,suspension (Flonase Allergy Relief) topiramate 100 mg tablet (Topamax) 100 mg PO QPM 05/11/20 05/07/22 History beclomethasone dipropionate 40 1 inh inhalation QAM 05/12/20 05/07/22 History mcg/actuation HFA breath activated aerosol (Qvar RediHaler) fremanezumab-vfrm 225 mg/1.5 mL 225 mg subcut MONTHLY 05/12/20 05/07/22 History subcutaneous auto-injector (Ajovy) prochlorperazine maleate 5 mg 5 mg PO BID PRN Nausea 05/12/20 05/07/22 History tablet (Compazine) acetaminophen 325 mg tablet 325 mg PO QID PRN Pain 08/13/20 05/07/22 History (Tylenol) nmvnaluccknvp-mdiohffzhtnjftzjrs-jufgvbgyyectz 1 cap PO DAILY PRN MIGRAINES 08/13/20 05/07/22 History capsule ondansetron HCl 4 mg tablet 4 mg PO Q6H PRN Nausea 08/25/21 05/07/22 History oxycodone-acetaminophen 5 mg-325 1 tab PO Q4 PRN Pain 03/06/22 05/07/22 History mg tablet polyethylene glycol 3350 17 17 g PO DAILY 03/23/22 05/07/22 History gram/dose oral powder (Miralax) sennosides 8.6 mg capsule (senna) 8.6 mg PO DAILY 03/23/22 05/07/22 History lorazepam 0.5 mg tablet 0.5 mg PO BID PRN anxiety #30 tabs 03/24/22 05/07/22 Rx levothyroxine 25 mcg tablet 25 mcg PO DAILY 04/12/22 05/07/22 History nystatin 100,000 unit/gram topical 1 applic topical .COMPLEX #60 grams 05/04/22 05/07/22 Rx powder Past Med/Surg History Medical History (Updated 05/08/22 @ 00:52 by Tunde Prabhakar MD) Abdominal distension Anxiety and depression Asthma Asthma LAST USED RESCUE INHALER>BEEN A WHILE Bilateral tinnitus Colostomy present Environmental allergies GERD (gastroesophageal reflux disease) Gluten intolerance History of anorexia nervosa History of ileus S/P HYSTERECTOMY Itching REASON FOR DAPSONE Large bowel obstruction Low iron HX IRON INFUSION Migraine Ovarian cancer PRESENT DX>REASON FOR A-PORT (HAS RECIEVED 6 CYCLES OF CHEMO 1 YEAR AGO) Small bowel obstruction Small bowel obstruction Surgical History H/O abdominal surgery AT [facility] 07/20/21 TO REMOVE CANCER IN ABDOMEN/COLON RESECTION WITH COLOSTOMY & INTRAPERITONEAL CHEMO H/O total hysterectomy + REMOVAL OVARIAN CYSTECTOMY History of colonoscopy History of esophagogastroduodenoscopy (EGD) History of knee surgery LEFT PATELLA REPAIR Nausea and vomiting after administration of anesthetic agent Port-A-Cath in place (08/30/21) Insertion Access Port with Fluoroscopy(Right) - Ilan Vee DO 08/30/2021 [place] teeth removed Family History Grandmother (Maternal) Breast cancer Hypertension Grandfather (Maternal) No problems noted. Father Hearing loss Mother Hearing loss Allergies Asthma Sister Allergies Asthma Other No family history of adverse response to anesthesia No family history of bleeding disorder Denies family history of Heart disease Cancer Stroke Social History Smoking Status: Never smoker Second Hand Exposure: No; Do You Dip or Chew Tobacco: No; Tobacco Cessation Education Requested by Patient: No Hx Alcohol Use: No Hx Substance Use: No Preferred Language: Faroese Communication Ability: Effective Visual Impairment: Limited Hearing Ability: Normal [place] Required: No Beliefs That Will Affect Care: None marital status: Current Living Situation: Spouse current occupational status: employed and retired 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 Seatbelt Use: always Sunscreen Use: Yes Do you think of yourself as: straight/heterosexual Assistive Devices: Glasses Review of Systems Review of Systems: All systems reviewed & are unremarkable except as noted in HPI & below Physical Exam Physical Exam: General: Grossly A&O. NAD. Cooperative. Thin habitus. HEENT: Atraumatic, normocephalic. EOMI. NG tube visible. Pulm: CTAB. -wheezes, -rales, -rhonchi. No respiratory distress. Cardiac: RRR, -mrg. No LE edema. Abdominal: Nontender, nondistended, soft. + ostomy. Msk: Moving all extremities. Integ: chemo port w/o surrounding erythema. ostomy site w/o surrounding erythema. Results & Data Results & Data ([facility]) Vital Signs (Past 12 Hours) Vital Signs Temp Pulse Pulse Resp BP BP Pulse Ox 05/07/22 20:50 88 16 167/97 H 94 05/07/22 19:26 36.4 C L 95 H 16 163/99 H 95 05/07/22 19:29 36.7 C 112 H 18 152/95 H 98 O2 Del Method 05/07/22 20:50 Room Air 05/07/22 19:26 Room Air 05/07/22 19:29 Room Air Laboratory Results Cardiac Enzymes 05/07/22 Range/Units 20:05 AST 23 (13-39) U/L Troponin I High Sens 9.7 (0-14) pg/ml CBC 05/07/22 Range/Units 20:05 WBC 53.71 H* (4.8-10.8) K/ul RBC 3.50 L (3.93-5.22) M/uL Hgb 11.9 L (12.0-16.0) g/dl Hct 35.8 (34.1-44.9) % Plt Count 246 (130-400) K/uL Neut # (Auto) 47.94 H (1.4-6.5) K/uL Lymph # (Auto) 0.39 L (1.2-3.4) K/uL Dane # (Auto) 1.28 H (0.24-0.82) K/uL Eos # (Auto) 0.01 (0-0.50) K/uL Baso # (Auto) 0.19 (0-0.2) K/uL Comprehensive Metabolic Panel 05/07/22 Range/Units 20:05 Sodium 133 L (136-145) mmol/L Potassium 3.7 (3.5-5.1) mmol/L Chloride 100 (98-107) mmol/L Carbon Dioxide 22 (21-32) mmol/L BUN 11 (6-23) mg/dl Creatinine 0.69 (0.6-1.2) mg/dl Glucose 148 H (70-99(Fasting)) mg/dl Calcium 9.6 (8.5-10.1) mg/dl AST 23 (13-39) U/L ALT 13 (7-52) U/L Alkaline Phosphatase 135 H (34-104) U/L Total Protein 7.1 (6.0-8.3) gm/dl Albumin 4.5 (3.4-5.0) gm/dl Intake and Output 10/16/22 10/16/22 10/16/22 06:59 14:59 22:59 Intake Total 500 / 500 Balance 500 / 500 Intake: IV 500 / 500 Sodium Chloride 0.9% 500 ml @ 500 / 500 999 mls/hr IV .Q31M STA Rx#: [id number] Other: Weight 39.7 kg Weight Measurement Method Chair Scale Patient Weight 05/08/22 06:59 Weight 39.7 kg Diagnostic Findings Preliminary Findings Only See Final Report For Complete FindingsCT ABDOMEN & PELVIS With Contrast: Impression: There is air distention of the distal thoracic esophagus as well as the entire stomach. There is moderate dilatation of small bowel loops in the abdomen and pelvis which could be due to partial distal small bowel obstruction Moderate ascites Radiologist: Garcia Delacruz MD Study ready at 21:17 and initial results transmitted at 21:34 Code Status & VTE Plan Code Status full VTE Prophylaxis Plan VTE Prophylaxis will be ordered: Yes Supervising Physician Co-Signing Physician Notes Attending addendum: I have physically seen this patient, have supervised the medical residents activities, and agree with the H&P unless as otherwise noted. Assessment and Plan: Recurrent small bowel obstruction- NPO NG tube to low remittent suction Patient rarely uses Percocet. Does have history of adhesions as presumptive cause IV fluids Follow serial CBC with differential and chemistry profile Ovarian cancer/ascites- Moderate ascites noted on CT Patient is due for routine paracentesis on 05/10, and CT abdomen pelvis with contrast on 05/11 Consult oncology Significant leukocytosis- Secondary to bone marrow stimulation with Neulasta Weight loss- Patient reports has not lost any weight since last admission, however, has not been able to put weight on. She does use nutritional supplements at home She has been on a low fiber diet Remaining orders and notations as noted Resident Activity Tracking Resident Involvement: Resident Care Provided Care Provided: Adult [facility] Medicine (1) Ovarian cancer Laterality: unspecified laterality Qualified Code(s): C56.9 - Malignant neoplasm of unspecified ovary
[2022-05-07 22:32] LABS: Appearance Urine Clear (Clear); Bacteria Urine Automated Negative (Negative); Blood Urine Negative (Negative); Color Urine Dark Yellow; Glucose Urine UA Negative (Negative); Ketones Urine Trace (Negative); Leukocyte Esterase Urine Negative (Negative); Nitrite Urine Negative (Negative); Protein Urine 1+ (Negative); RBC Urine Automated 0-4 /hpf (0-4); Specific Gravity Urine 1.039 (1.000-1.030); Urobilinogen Urine Negative (Negative); pH Urine 5.5 (4.5-7.5)
[2022-05-07 22:36] LABS: Bilirubin Urine 1+ (Negative)
[2022-05-07] MEDS ORDERED: CHLORASEPTIC 1.4% SOLN 180 ML BTL MT STA (22:43)
[2022-05-07] MEDS ORDERED: CHLORASEPTIC 1.4% SOLN 180 ML BTL MT PRN (22:43)
[2022-05-08] MEDS ORDERED: ACETAMINOPHEN 10MG/ML Custom 650 MG in EMPTY BAG 0 ML IV PRN (01:07)
[2022-05-08] MEDS ORDERED: SODIUM CHLORIDE 0.9% 1000ML 1,000 ML IV SCH (01:15)
[2022-05-08] MEDS ORDERED: LORazepam 0.25 MG in SYRINGE 0 ML IV ONE (01:30)
[2022-05-08] MEDS ORDERED: ONDANSETRON INJ 2 MG/ML 2 ML VIAL IV PRN (04:00)
--- NOTE | 2022-05-08 04:23 | Billing Data ---
Date of Service May 08, 2022 Coding Level of Care Code 23800 Initial Inpt Care Lvl 3
--- NOTE | 2022-05-08 06:55 | Consultation ---
Date of Consultation May 08, 2022 Assessment & Plan (1) Ovarian cancer: Patient has known persistent ovarian carcinoma currently on bevacizumab, carboplatin which she just received on 05/05/2022. Her CA125 would suggest a good response, CT scan was done 05/07/2022 and shows a picture consistent with small bowel obstgruction, await radiology review for assessment of her radiologic response with respect to the ovarian carcinoma. Even in response, she has a potential combination of persistent disease and/or adhesions which could easily be the cause of current small bowel obstruction. Dliemma is that she just received bevacizumab on 05/05/2022 and that could create issues of bleeding, thrombosis, and poor wound healing for any surgery performed within 4 weeks. In general, it would be preferable to wait at least 4 weeks out from the dose before proceeding with elective or semielective surgery. However if there is an emergent requirement for surgery, there is some precedent for proceeding even prior to that timeframe Tiffany et al. Complications after colorectal anastomosis in a patient with metastatic rectal cancer treated with systemic chemotherapy and bevacizumab Can J Surg. 2008 Adan; 51(3): E52E53. PMCID: [id number] PMID: [id number] The use of bevacizumab is not an absolute contraindication to an emergency procedure, but it is certainly a contraindication for an elective one. If possible, surgery should always be delayed for at least 28 days after the last dose of bevacizumab. Some old paradigms are shifted by modern surgery, but bowel preparation, diverting stomas and drains should probably be used liberally in this fragile population. Moreover, any procedure that is not required to improve the patient's condition in the short-term should not be undertaken. In this case, our enthusiastic installation of an intra-arterial catheter was probably a high- risk manoeuvre. When a surgical operation cannot be delayed, the surgeon must pay particular attention to the patient's preoperative preparation. At first, side effects of bevacizumab should be controlled: measurements of blood pressure, coagulation and platelet count should be normal. Thromboembolic events should be prevented, and antibiotic prophylaxis should generally be used. Intraoperatively, the most conservative approach is probably the best: great care should be paid to hemostasis; resection should be the least extensive possible; and primary anastomosis of large bowel (especially on the left side) should be protected with a stoma. For difficult abdominal wall closure after clean surgery, the use of subfascial resorbable Vicryl mesh should be considered to lower the risk of eventration. Finally, surgeons should keep in mind that a postoperative complication in this population will probably delay the administration of chemotherapy, which is certainly not in the best interest of the patient. Doing so would need to be in shared decision-making with the patient. Depending on the particular surgery anticipated and the comfort of the local surgical team, could also consider transfer back to [facility] who are familiar with patient from her first diagnosis and/or review with Dr. Harley Villagran as to his own comfort with coordinating any surgical intervention required. Beyond the immediate stabilization, we would anticipate potentially continuing with current chemotherapy when she is more completely stabilized given what looks like an early response. If her current SBO can be managed with conservative measures, however, we may still need to consider whether additional semielective surgical intervention after a 4-week interval might be important to forestall future recurrences of this event and as such it may be prudent to hold the bevacizumab for now proceeding with Doxil alone until that assessment can be made more completely. (2) Leukocytosis: Neutrophil count was unremarkable on 05/04/2022, patient did receive a Neulasta dose via OnPro device on 05/06/2022. That can routinely result in an immediate spike in neutrophil counts and the current picture could be consistent with that. Certainly it is extraordinarily unlikely that this represents an autonomous myeloproliferative disorder. While we may explain the numerical rise solely on the basis of the medication received, that could obscure a concomitant response to infection. Patient is afebrile, determination as to the presence of infection and the need for antibiotics will need to be determined based on other clinical criteria. We would expect the neutrophil counts to subside over the next 5 to 10 days as she approaches chemotherapy laura and indeed she could still be prone to at least a very brief period of neutropenia even with the Neulasta administration whose impact is not so much to eliminate neutropenia altogether but to lessen the period of its persistence. Plan 1. As detailed above, surgical intervention should be confined to emergent surgical requirements only at least until 4 weeks out from most recent bevacizumab. If emergent surgery is required, however, that is not absolutely contraindicated but it might be worthwhile pursuing in conjunction with gynecologic/oncology consultation and perhaps even transfer to a center with that more specific capability 2. Neutrophilia is probably a consequence of her Neulasta administration but we should be cognizant of any other potential indicators of infection that might require antibiotics. She may still enter a brief period of neutropenia over the next 5 to 10 days. She does not necessarily need "prophylactic" antibiotic therapy however. 3. Based on short-term determination of the need for surgery versus conservative measures, her speed and degree of recovery, and ultimate interpretation of the pending CT scan we may consider resumption of systemic therapy when next due that we may also consider whether holding bevacizumab for the time being we will leave open a "window" of opportunity for surgery should the SBO recur or persist 4. Again, this analysis and set of recommendations is based solely on chart review. I will plan to see the patient in person on 05/09/2022. If more complete and urgent oncologic review is required Dr. Maldonado should be available later today History of Present Illness Reason for Consultation: Small bowel obstruction in the context of ovarian carcinoma Attending Physician: Gelacio Chopra MD History of Present Illness This is a provisional consultation to give additional guidance in patient management. I have not personally seen the patient and the guidance is based on review of the cancer care [facility] records (see particularly notes from 03/24/2022 and 04/21/2022 from our physicians intellectual property legal assistant) and as well the admission history and physical. If there are more acute concerns, please contact Dr. Maldonado who will be available onsite today for more emergent discussions if they are required. The below guidance is intended to offer initial perspectives on patient management and I will plan to see her tomorrow if there is not an emergent need today. Patient has a high-grade ovarian carcinoma originally diagnosed in March 2020. Her management has been in conjunction with initial surgery and care coordinated through the team at [facility], she has an ongoing relationship with the team at [facility], she is scheduled to see Dr. Harley Villagran on May 23 to coordinate gynecologic oncology care closer to home. She has persistent disease and her most recent treatment was with carboplatinum and liposomal doxorubicin which she received on 05/05/2022 in the [facility] infusion center. She did have a Neulasta OnPro device installed at that time which would have delivered its dose on 04/06/2022. Allergies Allergy/AdvReac Type Severity Reaction Status Date / Time doxycycline Allergy Intermediate RASH Verified 05/07/22 21:16 gluten AdvReac Intermediate Abdominal Verified 05/07/22 21:16 Pain lactose AdvReac Intermediate Abdominal Verified 05/07/22 21:16 Pain Penicillins AdvReac Intermediate Nausea, Verified 05/07/22 21:16 diarrhea Home Medications Medication Instructions Recorded Confirmed Type pantoprazole 40 mg granules 40 mg PO QAM 07/28/19 05/07/22 History delayed-release for susp in packet (Protonix) montelukast 10 mg tablet 10 mg PO QPM 11/05/19 05/07/22 History sertraline 100 mg tablet 200 mg PO QPM 11/05/19 05/07/22 History dapsone 25 mg tablet 25 mg PO BID 04/13/20 05/07/22 History famotidine 20 mg tablet 20 mg PO QAM 04/13/20 05/07/22 History cholecalciferol (vitamin D3) 50 50 mcg PO QAM 05/11/20 05/07/22 History mcg (2,000 unit) capsule fexofenadine 180 mg tablet 180 mg PO HS 05/11/20 05/07/22 History (Liana Allergy) fluticasone propionate 50 1 spray intranasal BID 05/11/20 05/07/22 History mcg/actuation nasal spray,suspension (Flonase Allergy Relief) topiramate 100 mg tablet (Topamax) 100 mg PO QPM 05/11/20 05/07/22 History beclomethasone dipropionate 40 1 inh inhalation QAM 05/12/20 05/07/22 History mcg/actuation HFA breath activated aerosol (Qvar RediHaler) fremanezumab-vfrm 225 mg/1.5 mL 225 mg subcut MONTHLY 05/12/20 05/07/22 History subcutaneous auto-injector (Ajovy) prochlorperazine maleate 5 mg 5 mg PO BID PRN Nausea 05/12/20 05/07/22 History tablet (Compazine) acetaminophen 325 mg tablet 325 mg PO QID PRN Pain 08/13/20 05/07/22 History (Tylenol) kmrghbhzofrxs-lwivwpbnxgaahzkgpx-vvlfwcahdashq 1 cap PO DAILY PRN MIGRAINES 08/13/20 05/07/22 History capsule ondansetron HCl 4 mg tablet 4 mg PO Q6H PRN Nausea 08/25/21 05/07/22 History oxycodone-acetaminophen 5 mg-325 1 tab PO Q4 PRN Pain 03/06/22 05/07/22 History mg tablet polyethylene glycol 3350 17 17 g PO DAILY 03/23/22 05/07/22 History gram/dose oral powder (Miralax) sennosides 8.6 mg capsule (senna) 8.6 mg PO DAILY 03/23/22 05/07/22 History lorazepam 0.5 mg tablet 0.5 mg PO BID PRN anxiety #30 tabs 03/24/22 05/07/22 Rx levothyroxine 25 mcg tablet 25 mcg PO DAILY 04/12/22 05/07/22 History nystatin 100,000 unit/gram topical 1 applic topical .COMPLEX #60 grams 05/04/22 05/07/22 Rx powder Patient History Medical History (Updated 05/08/22 @ 00:52 by Tunde Prabhakar MD) Abdominal distension Anxiety and depression Asthma Asthma LAST USED RESCUE INHALER>BEEN A WHILE Bilateral tinnitus Colostomy present Environmental allergies GERD (gastroesophageal reflux disease) Gluten intolerance History of anorexia nervosa History of ileus S/P HYSTERECTOMY Itching REASON FOR DAPSONE Large bowel obstruction Low iron HX IRON INFUSION Migraine Ovarian cancer PRESENT DX>REASON FOR A-PORT (HAS RECIEVED 6 CYCLES OF CHEMO 1 YEAR AGO) Small bowel obstruction Small bowel obstruction Surgical History H/O abdominal surgery AT [facility] 07/20/21 TO REMOVE CANCER IN ABDOMEN/COLON RESECTION WITH COLOSTOMY & INTRAPERITONEAL CHEMO H/O total hysterectomy + REMOVAL OVARIAN CYSTECTOMY History of colonoscopy History of esophagogastroduodenoscopy (EGD) History of knee surgery LEFT PATELLA REPAIR Nausea and vomiting after administration of anesthetic agent Port-A-Cath in place (08/30/21) Insertion Access Port with Fluoroscopy(Right) - Ilan Vee DO 08/30/2021 Reading teeth removed Family History Grandmother (Maternal) Breast cancer Hypertension Grandfather (Maternal) No problems noted. Father Hearing loss Mother Hearing loss Allergies Asthma Sister Allergies Asthma Other No family history of adverse response to anesthesia No family history of bleeding disorder Denies family history of Heart disease Cancer Stroke Social History Smoking Status: Never smoker Second Hand Exposure: No; Do You Dip or Chew Tobacco: No; Tobacco Cessation Education Requested by Patient: No Hx Alcohol Use: No Hx Substance Use: No Preferred Language: Icelandic Communication Ability: Effective Visual Impairment: Limited Hearing Ability: Normal Interventional Radiology Technologist Required: No Beliefs That Will Affect Care: None marital status: Current Living Situation: Spouse current occupational status: employed and retired 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 Seatbelt Use: always Sunscreen Use: Yes Do you think of yourself as: straight/heterosexual Assistive Devices: Glasses Physical Exam Physical Exam: This is an electronic consultation only and a physical examination was not performed. Please refer to the physical examination as part of the history present illness. Current vital signs are listed as a blood pre ssure of 131/54, pulse of 62, temperature 36.9, respirations 16, and pulse ox 96% on room air Results & Data ([facility]) Vital Signs (Past 12 Hours) Vital Signs Temp Pulse Pulse Resp BP BP Pulse Ox 05/08/22 03:26 36.9 C 62 16 131/54 L 96 05/08/22 01:00 36.4 C L 81 16 148/79 H 97 05/08/22 01:58 77 05/08/22 00:00 75 16 113/67 97 05/07/22 22:00 93 H 14 127/82 92 05/07/22 20:50 88 16 167/97 H 94 05/07/22 19:26 36.4 C L 95 H 16 163/99 H 95 05/07/22 19:29 36.7 C 112 H 18 152/95 H 98 O2 Del Method 05/08/22 03:26 Room Air 05/08/22 01:00 Room Air 05/08/22 01:58 05/08/22 00:00 05/07/22 22:00 Room Air 05/07/22 20:50 Room Air 05/07/22 19:26 Room Air 05/07/22 19:29 Room Air PG Care Time/CCT Total # of Minutes Spent Total Time Spent with Patient: Total time spent is greater than 50% in coordination of care (as documented) at patient's floor/unit and/or counseling patient: Coding Level of Care Code None Diagnoses Ovarian cancer C56.9 Laterality: unspecified laterality Leukocytosis D72.829 (1) Ovarian cancer Laterality: unspecified laterality Qualified Code(s): C56.9 - Malignant neoplasm of unspecified ovary
--- NOTE | 2022-05-08 08:03 | CT Scan Report ---
ABDOMEN AND PELVIS CT WITH IV CONTRAST CT DOSE: 260.78 mGy.cm HISTORY: Acute generalized abdominal pain with bloating poss obstruc TECHNIQUE: Multiaxial CT images of the abdomen and pelvis were performed following the IV administrat ion of 87 cc of Optiray, A dose lowering technique was utilized adhering to the principles of ALARA. COMPARISON STUDY: CT abdomen and pelvis 03/06/2022 FINDINGS: No acute process of the imaged lower chest. No pneumatosis or pneumoperitoneum. The spleen is enlarged measuring up to 15.4 cm in length. Unremarkable pancreas and adrenal glands. Distended ga llbladder. Unremarkable liver. There is patency of the hepatic and portal veins. Unremarkable kidneys. There is no hydronephrosis. Unremarkable urinary bladder. Aorta and IVC appear unremarkable. There is no lymphadenopathy identified. Gaseous distention of the distal esophagus, sto mach, proximal and mid small bowel is redemonstrated and appears similar to the most recent compariso n study. Partial bowel resection with left lower quadrant colostomy again noted. Dilated small bowel within the midabdomen measures up to approximately 5 cm, also unchanged. Several loops of small bowel demonstrate mild wall thickening. There is no clear transition point identified. 8 mm peritoneal sof t tissue nodule within the abdominal left lower quadrant is stable and image 3:15. Small to moderate ascites with mild peritoneal thickening and enhancement. Surgically absent uterus. Unremarkable soft tissues. There is no acute fracture. IMPRESSION: 1. Prior partial bowel resection with left lower quadrant colostomy. 2. Marked gaseous distention of the distal esophagus, stomach and proximal to mid small bowel is rede monstrated and appears similar to the 03/06/2022 study. A partial small bowel obstruction is favored. Follow-up recommended. 3. Ascites with peritoneal carcinomatosis appears stable. 4. Splenomegaly. 5. Additional findings as above. ACT 112: Negative or not required by law. The above report was generated using voice recognition software. It may contain grammatical, syntax o r spelling errors. Electronically signed by: Harley Calero M.D. 05/08/2022 8:01 AM
[2022-05-08 08:11] LABS: Albumin Globulin Ratio 1.8 (0.9-2); Albumin Level 3.5 gm/dl (3.4-5.0); BUN Creatinine Ratio 15.3 (10-20); Bilirubin,Total 0.6 mg/dl (0.2-1.0); Calcium 8.7 mg/dl (8.5-10.1); Creatinine Clr Calc Pharmacy 65.6 ml/min; Est GFR (African American) 119.6 ml/min; Est GFR (Non-African American) 103.2 ml/min; Globulin 1.9 gm/dl (2.5-4.0); Magnesium 1.8 mg/dl (1.7-2.4); Potassium 3.2 mmol/L (3.5-5.1); Total Protein 5.4 gm/dl (6.0-8.3)
--- NOTE | 2022-05-08 08:13 | Electrocardiogram Report ---
Test Reason : Blood Pressure : / mmHG Vent. Rate : 070 BPM Atrial Rate : 070 BPM P-R Int : 142 ms QRS Dur : 074 ms QT Int : 422 ms P-R-T Axes : 079 -26 071 degrees QTc Int : 455 ms Normal sinus rhythm Normal ECG When compared with ECG of 07-MAY-2022 20:43, No significant change was found Confirmed by Kosta Lebron ([id number]) on 05/08/2022 8:12:45 AM Referred By: REFERRED SELF Confirmed By:Kosta Lebron
[2022-05-08 08:14] LABS: Hematocrit (blood only) 29.4 % (34.1-44.9); Hemoglobin 9.4 g/dl (12.0-16.0); Mean Corpuscular Hemoglobin 33.2 pg (25.0-34.0); Mean Corpuscular Volume 103.9 fL (80.0-100.0); Mean Platelet Volume 10.4 fL (9.4-12.3); Platelet Count 175 K/uL (130-400); RDW Coefficient of Variation 16.6 % (11.5-14.5); RDW Standard Deviation 64.1 fL (36.4-46.3); Red Blood Count 2.83 M/uL (3.93-5.22); White Blood Count 34.91 K/ul (4.8-10.8)
--- NOTE | 2022-05-08 08:42 | Electrocardiogram Report ---
Test Reason : Blood Pressure : / mmHG Vent. Rate : 098 BPM Atrial Rate : 098 BPM P-R Int : 136 ms QRS Dur : 074 ms QT Int : 346 ms P-R-T Axes : 077 -28 066 degrees QTc Int : 441 ms Normal sinus rhythm Normal ECG When compared with ECG of 26-AUG-2021 11:23, No significant change was found Confirmed by Kosta Lebron ([id number]) on 05/08/2022 8:41:32 AM Referred By: REFERRED SELF Confirmed By:Kosta Lebron
[2022-05-08 08:59] LABS: ANC (manual) 32.47 K/uL (1.4-6.5); Basophils # (manual) 0.35 K/uL (0-0.2); Basophils % (manual) 1 %; Lymphocytes % (manual) 4 %; Monocytes # (manual) 1.05 K/uL (0.24-0.82); Monocytes % (manual) 3 %; Neutrophils # (manual) 32.47 K/uL (1.4-6.5); Neutrophils % (manual) 93 %
--- NOTE | 2022-05-08 09:10 | XRay Report ---
XR chest 1V portable HISTORY: check ng tube position COMPARISON: Chest 08/30/2021. FINDINGS: The nasogastric tube terminates in the distal stomach. Right jugular Port-A-Cath remains at the SVC. No pneumothorax. No pleural effusions. The heart is normal in size. The lungs are clear. IMPRESSION: Nasogastric tube terminates in the distal stomach. ACT 112: Negative or not required by law. Electronically signed by: William Jaimes M.D. 05/08/2022 9:08 AM
[2022-05-08] MEDS: D5NSS + 20MEQ KCL 20 MEQ/1,000 ML BAG IV SCH ×2 (09:30→20:23)
[2022-05-08] MEDS: PANTOprazole 40 MG in SYRINGE 0 ML IV SCH ×2 (10:23→20:23)
[2022-05-08] MEDS: HEPARIN SOD 5,000 UNIT/0.5 ML VIAL SQ SCH ×2 (10:24→20:23)
--- NOTE | 2022-05-08 14:13 | Hospitalist Progress Note ---
Date of Service May 08, 2022 Assessment & Plan (1) SBO (small bowel obstruction): Plan: 57 y/o female w/ PMHx of ovarian cancer s/p ostomy w/ hx of bowel obstruction who presents w/ several days of nausea and upper abd tightness and decreased ostomy output. CT abd suggestive of partial SBO. Currently NPO and NG on low intermittent suction. Appreciate surgery consultation and recommendations. Nonoperative management at this point. (2) Abdominal ascites: Plan: moderate malignant ascites noted on CT abd. Receives periodic therapeutic paracentesis as outpatient. The next procedure is scheduled for 05/10/22. She also has outpatient CT abd w/ IV contrast scheduled for 05/11/22. She will f/u w/ oncology team regarding whether to pursue CT imaging while inpatient, depending on length of stay (3) Leukocytosis: Plan: significant leukocytosis probably due to recent Neulasta medication. WBC is trending down now. We will follow. Oncology consultation (4) Ovarian cancer: Plan: She is receiving outpatient chemo, last treatment on 05/05/22. Oncology management (5) Failure to thrive: Plan: in setting of ovarian cancer. Supportive care (6) Hypothyroidism: Plan: - hold p.o.levothyroxine while NPO. Resume when able (7) Migraine: Plan: Medication management as needed (8) Anemia: Plan: chronic, stable. Serial labs (9) Hyponatremia: Plan: - mild, has had intermittently in past. Serial labs (10) Colostomy present: Plan: routine care (11) Port-A-Cath in place: Plan: The patient desires that the venous access port be used and peripheral IVs discontinued. Plan Conservative management. Hopefully surgery can be avoided. Eventual discharge to home. Palliative care consultation requested. Admission and Anticipated Discharge Date Admission Date: May 07, 2022 Subjective Alert and oriented. No complaints. NG tube remains in place and she is n.p.o. She states she would rather use the venous access port at all times and have the peripheral IV removed. Potassium is down to 3.2. Parenteral replacement ordered along with daily labs. She recently received Neulasta which would explain the leukocytosis which is trending downward. Surgery consultation noted. No IR intervention unless absolutely necessary. Review of Systems Review of Systems: Constitutional-no fever or chills ENT-no blurred vision, no double vision, no epistaxis, no sore throat Respiratory-no cough, no wheezing, no shortness of breath Cardiac-no palpitations, no chest pain, no syncope GI-NG tube remains in place. She denies abdominal pain. No melena, no hematochezia -no urinary retention, no urinary incontinence, no dysuria, no hematuria Musculoskeletal-no joint pain, no muscle tenderness Skin-no bruising, no rashes, no pruritus Neuro-no isolated weakness, no paresthesia Psych-no depression, no anxiety Physical Exam Physical Exam: General-alert and oriented x3, no fevers, no chills. She appears cachectic HEENT-head atraumatic and normocephalic, pupils equal and reactive to light, extraocular muscles intact. NG tube in place Neck-no lymphadenopathy or thyromegaly, trachea midline Chest-clear to auscultation percussion. No rales wheezing or rhonchi Cardiac-regular rate and rhythm, normal S1 and S2, no murmurs Abdomen-nondistended. Soft. Bowel sounds are active. Extremities-no cyanosis, clubbing, or edema Neuro-cranial nerves II through XII intact, motor and sensory function within normal limits, strength symmetrical with generalized weakness , no focal deficits Psych-depressed affect Results & Data Results & Data ([facility]) Vital Signs (Past 12 Hours) Vital Signs Temp Pulse Pulse Resp BP Pulse Ox O2 Del Method 05/08/22 11:13 36.7 C 79 18 98/66 L 97 Room Air 05/08/22 07:34 36.5 C 80 18 108/68 97 Room Air 05/08/22 07:34 82 05/08/22 03:26 36.9 C 62 16 131/54 L 96 Room Air Laboratory Results 05/08/22 07:26 05/08/22 07:26 PG Care Time/CCT Total # of Minutes Spent Total Time Spent with Patient: Total time spent is greater than 50% in coordination of care (as documented) at patient's floor/unit and/or counseling patient: Coding Level of Care Code 69062 Subseq Hosp Care Lvl 3 Diagnoses SBO (small bowel obstruction) K56.609 Abdominal ascites R18.8 Leukocytosis D72.829 Ovarian cancer C56.9 Laterality: unspecified laterality Failure to thrive Hypothyroidism E03.9 Migraine G43.909 Anemia D64.9 Hyponatremia E87.1 Colostomy present Z93.3 Port-A-Cath in place Z95.828 (1) Ovarian cancer Laterality: unspecified laterality Qualified Code(s): C56.9 - Malignant neoplasm of unspecified ovary
[2022-05-08] MEDS: LORazepam 0.5 MG TAB PO PRN (20:23)
--- NOTE | 2022-05-08 22:16 | Communication Note ---
Date of Service: May 08, 2022 Patient asking if cardiac monitoring could be dc'd. Will defer possible downgrade to med/surg to day hospitalist. 630AM notified patient's NG tube fell out after she bent over. will defer to day hospitalist to assess whether reinsertion is indicated
[2022-05-09] MEDS ORDERED: HEPARIN 100 UNIT/ML 5ML FLUSH FLUSH PRN (00:33)
[2022-05-09] MEDS: D5NSS + 20MEQ KCL 20 MEQ/1,000 ML BAG IV SCH ×2 (06:18→17:53)
[2022-05-09 07:28] LABS: Hematocrit (blood only) 29.5 % (34.1-44.9); Hemoglobin 9.4 g/dl (12.0-16.0); Mean Corpuscular Hemoglobin 34.6 pg (25.0-34.0); Mean Corpuscular Hgb Conc 31.9 g/dL (32.0-36.0); Mean Corpuscular Volume 108.5 fL (80.0-100.0); Mean Platelet Volume 10.7 fL (9.4-12.3); Nucleated RBC # (auto) 0.02 K/uL (0-0); Nucleated RBC % (auto) 0.1 %; Platelet Count 167 K/uL (130-400); RDW Coefficient of Variation 16.9 % (11.5-14.5); RDW Standard Deviation 67.7 fL (36.4-46.3); Red Blood Count 2.72 M/uL (3.93-5.22); White Blood Count 26.27 K/ul (4.8-10.8)
[2022-05-09 07:57] LABS: Calcium 8.2 mg/dl (8.5-10.1); Creatinine Clr Calc Pharmacy 84.3 ml/min; Est GFR (African American) 126.3 ml/min; Potassium 3.5 mmol/L (3.5-5.1)
[2022-05-09 08:23] LABS: ALC (manual) 1.05 K/uL (1.2-3.4); ANC (manual) 24.96 K/uL (1.4-6.5); Dohle Bodies 1+; Lymphocytes # (manual) 1.05 K/uL (1.2-3.4); Lymphocytes % (manual) 4 %; Monocytes # (manual) 0.26 K/uL (0.24-0.82); Monocytes % (manual) 1 %; Neutrophils # (manual) 24.96 K/uL (1.4-6.5); Neutrophils % (manual) 95 %
[2022-05-09] MEDS: PANTOprazole 40 MG in SYRINGE 0 ML IV SCH ×2 (10:00→21:01)
--- NOTE | 2022-05-09 11:41 | XRay Report ---
KUB CLINICAL HISTORY: Small bowel obstruction. FINDINGS: An AP supine abdominal radiograph is compared to study dated 03/08/2022 and correlated with abdominal CT dated 05/07/2022. Surgical clips and suture material project over the lower abdomen. The re is persistent gaseous distention of the small bowel loops, likely representing persistent obstruct ion. No evidence of intraperitoneal free air is seen on this supine image. There are no abnormal abdo cathleen calcifications. Phleboliths are seen in the pelvis. The bony structures appear intact. IMPRESSION: Postsurgical change as above with evidence of persistent bowel obstruction. Electronically signed by: Jonathan Leo M.D. 05/09/2022 11:40 AM
--- NOTE | 2022-05-09 12:37 | Hospitalist Progress Note ---
Date of Service May 09, 2022 Assessment & Plan (1) SBO (small bowel obstruction): Plan: The patient states the NG tube came out by itself. KUB today, May 09, c ontinues to show evidence of bowel obstruction. She does however have some air and liquid in the left lower quadrant ostomy. We will consult general surgery. Continue IV fluids for now. (2) Abdominal ascites: Plan: moderate malignant ascites noted on CT abd. Receives periodic therapeutic paracentesis as outpatient. The next procedure is scheduled for 05/10/22. She also has outpatient CT abd w/ IV contrast scheduled for 05/11/22. She will f/u w/ oncology team regarding whether to pursue CT imaging while inpatient, dep ending on length of stay (3) Leukocytosis: Plan: significant leukocytosis probably due to recent Neulasta medication. WBC is trending down now. We will follow. Oncology consultation appreciated (4) Ovarian cancer: Plan: She is receiving outpatient chemo, last treatment on 05/05/22. Oncology management (5) Failure to thrive: Plan: in setting of ovarian cancer. Supportive care (6) Hypothyroidism: Plan: hold p.o.levothyroxine while NPO. Resume when able (7) Migraine: Plan: Medication management as needed (8) Anemia: Plan: chronic, stable. Serial labs (9) Hyponatremia: Plan: mild. Serial labs (10) Colostomy present: Plan: routine care. The left lower quadrant colostomy bag does contain some air and liquids (11) Port-A-Cath in place: Plan: The patient desires that the venous access port be used and no peripheral IVs. (12) Hypokalemia: Plan: Corrected with intravenous potassium replacement. Serial labs Plan Conservative management. Hopefully surgery can be avoided. Eventual discharge to home. Palliative care consultation requested. Admission and Anticipated Discharge Date Admission Date: May 07, 2022 Subjective Alert and oriented. The patient states the NG tube came out by itself. KUB film today, May 09, continues to show evidence of small bowel obstruction. She is passing some liquid and air however into the ostomy bag. We will ask general surgery to see the patient. She is requesting that her telemetry be discontinued. White blood cell count is trending down. Potassium has improved to 3.5. We will continue IV fluids for now since she is n.p.o. Review of Systems Review of Systems: Constitutional-no fever or chills ENT-no blurred vision, no double vision, no epistaxis, no sore throat Respiratory-no cough, no wheezing, no shortness of breath Cardiac-no palpitations, no chest pain, no syncope GI-no nausea, vomiting, diarrhea, melena, hematochezia -no urinary retention, no urinary incontinence, no dysuria, no hematuria Musculoskeletal-no joint pain, no muscle tenderness Skin-no bruising, no rashes, no pruritus Neuro-no isolated weakness, no paresthesia, no weakness Psych-no depression, no anxiety Physical Exam Physical Exam: General-alert and oriented x3, no fevers, no chills HEENT-head atraumatic and normocephalic, pupils equal and reactive to light, extraocular muscles intact Neck-no lymphadenopathy or thyromegaly, trachea midline Chest-clear to auscultation percussion. No rales wheezing or rhonchi Cardiac-regular rate and rhythm, normal S1 and S2, no murmurs Abdomen-normal bowel sounds, nontender. Nondistended. The left lower quadrant ostomy bag does contain some air and liquid. Extremities-no cyanosis, clubbing, or edema Neuro-cranial nerves II through XII intact, motor and sensory function within normal limits, strength symmetrical , no focal deficits Psych-normal affect, normal mood Results & Data Results & Data ([facility]) Vital Signs (Past 12 Hours) Vital Signs Temp Pulse Pulse Resp BP Pulse Ox O2 Del Method 05/09/22 11:48 36.8 C 85 19 124/76 98 Room Air 05/09/22 07:30 36.8 C 81 20 102/67 97 Room Air 05/09/22 07:01 76 05/09/22 02:53 36.8 C 96 H 16 115/71 97 Room Air Laboratory Results 05/09/22 06:37 05/09/22 06:37 PG Care Time/CCT Total # of Minutes Spent Total Time Spent with Patient: Total time spent is greater than 50% in coordination of care (as documented) at patient's floor/unit and/or counseling patient: Coding Level of Care Code 96747 Subseq Hosp Care Lvl 3 Diagnoses SBO (small bowel obstruction) K56.609 Abdominal ascites R18.8 Leukocytosis D72.829 Ovarian cancer C56.9 Laterality: unspecified laterality Failure to thrive Hypothyroidism E03.9 Migraine G43.909 Anemia D64.9 Hyponatremia E87.1 Colostomy present Z93.3 Port-A-Cath in place Z95.828 Hypokalemia E87.6 (1) Ovarian cancer Laterality: unspecified laterality Qualified Code(s): C56.9 - Malignant neoplasm of unspecified ovary
[2022-05-09] MEDS: HEPARIN SOD 5,000 UNIT/0.5 ML VIAL SQ SCH ×2 (13:16→21:01)
--- NOTE | 2022-05-09 14:18 | Surgery Consultation ---
Date of Consultation May 09, 2022 Assessment & Plan (1) SBO (small bowel obstruction): (2) Ovarian cancer: Plan 57 year-old female with history of metastatic left ovarian cancer s/p total abdominal hysterectomy in 2019 and then cytoreductive surgery and HIPEC in June of 2021 at [place] who presented to [facility] on 05/07/2022 with complaint of abdominal pressure, fullness, hiccups, nausea. CT scan showing evidence of sbo with dilated distal esophagus, stomach and small bowel. SHe was admitted to hospital in February 2022 for large bowel obstruction and then readmit two days later with SBO. She was treated conservatively. Has malignant ascites and gets monthly paracentesis. Leukocytosis elevated significantly upon presentation but improving without any signs of infection and likely secondary to recent Neulasta injection. Abdomen is soft, nontender, nondistended and ostomy had gas and liquid stool this morning. Plan: No acute surgical intervention required at this time. Would continue conservative management Can start sips of clears slowly Defer to medical/oncology team about upcoming paracentesis scheduled for tomorrow and outpatient CT scan of abd/pelvis with oral contrast. She may not tolerate oral contrast at this time given PSBO. If she were to need any surgical intervention she would require transfer to [place] given her metastatic disease and history of HIPEC and cytoreductive surgery at that institution. Discussed with Dr. Benito who has seen and examined pt, please see addendum for further recommendations/plan. Supervising Physician Co-Signing Physician Notes I have seen and examined the patient personally and agree with the above assessment and plan. She appears to have stool and gas in her ostomy bag. We will place her on sips of clears. We will continue serial exams. If she were to need surgical intervention, she would require transfer to [place] given her metastatic disease and history of HIPEC and cytoreductive surgery. History of Present Illness Reason for Consultation: SBO Requesting Physician: Jose Keane MD Attending Physician: Jose Keane MD History of Present Illness Mrs. 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 She has been admitted to [facility] on 2 prior occasions for large bowel obstruction and small bowel obstruction in early February 2022. She was treated conservatively with NG tube placement. She presented to the emergency room 2 days ago with complaint of increased upper abdominal pressure, hiccups, bloating, nausea, and was found to have evidence of a small bowel obstruction with dilated distal esophagus, stomach, and small bowel. She also has a history of malignant ascites requiring paracentesis. She is scheduled for paracentesis tomorrow. She had chemotherapy and Neulasta injection on Sunday. She had a leukocytosis of 53,000 in the emergency room which was felt to be secondary to her recent Neulasta injection. She denies of any fever or chills. She had an NG tube placed in the emergency room which she felt immediately better. However this NG tube dislodged this morning when bending over. Since NG tube dislodged, she has not had any abdominal pain, nausea, vomiting. She was slightly hungry this morning. She states her symptoms/presentation is similar to her prior episode of a bowel obstruction in February. She states she had a colostomy full of gas this morning and a little bit of liquid stool. Overall she is feeling better. Allergies Allergy/AdvReac Type Severity Reaction Status Date / Time doxycycline Allergy Intermediate RASH Verified 05/07/22 21:16 gluten AdvReac Intermediate Abdominal Verified 05/07/22 21:16 Pain lactose AdvReac Intermediate Abdominal Verified 05/07/22 21:16 Pain Penicillins AdvReac Intermediate Nausea, Verified 05/07/22 21:16 diarrhea Home Medications Medication Instructions Recorded Confirmed Type pantoprazole 40 mg granules 40 mg PO QAM 07/28/19 05/07/22 History delayed-release for susp in packet (Protonix) montelukast 10 mg tablet 10 mg PO QPM 11/05/19 05/07/22 History sertraline 100 mg tablet 200 mg PO QPM 11/05/19 05/07/22 History dapsone 25 mg tablet 25 mg PO BID 04/13/20 05/07/22 History famotidine 20 mg tablet 20 mg PO QAM 04/13/20 05/07/22 History cholecalciferol (vitamin D3) 50 50 mcg PO QAM 05/11/20 05/07/22 History mcg (2,000 unit) capsule fexofenadine 180 mg tablet 180 mg PO HS 05/11/20 05/07/22 History (Liana Allergy) fluticasone propionate 50 1 spray intranasal BID 05/11/20 05/07/22 History mcg/actuation nasal spray,suspension (Flonase Allergy Relief) topiramate 100 mg tablet (Topamax) 100 mg PO QPM 05/11/20 05/07/22 History beclomethasone dipropionate 40 1 inh inhalation QAM 05/12/20 05/07/22 History mcg/actuation HFA breath activated aerosol (Qvar RediHaler) fremanezumab-vfrm 225 mg/1.5 mL 225 mg subcut MONTHLY 05/12/20 05/07/22 History subcutaneous auto-injector (Ajovy) prochlorperazine maleate 5 mg 5 mg PO BID PRN Nausea 05/12/20 05/07/22 History tablet (Compazine) acetaminophen 325 mg tablet 325 mg PO QID PRN Pain 08/13/20 05/07/22 History (Tylenol) diphswkywyaox-dxhsbaeofgtilstkoc-nnonhjfimvctt 1 cap PO DAILY PRN MIGRAINES 08/13/20 05/07/22 History capsule ondansetron HCl 4 mg tablet 4 mg PO Q6H PRN Nausea 08/25/21 05/07/22 History oxycodone-acetaminophen 5 mg-325 1 tab PO Q4 PRN Pain 03/06/22 05/07/22 History mg tablet polyethylene glycol 3350 17 17 g PO DAILY 03/23/22 05/07/22 History gram/dose oral powder (Miralax) sennosides 8.6 mg capsule (senna) 8.6 mg PO DAILY 03/23/22 05/07/22 History lorazepam 0.5 mg tablet 0.5 mg PO BID PRN anxiety #30 tabs 03/24/22 05/07/22 Rx levothyroxine 25 mcg tablet 25 mcg PO DAILY 04/12/22 05/07/22 History nystatin 100,000 unit/gram topical 1 applic topical .COMPLEX #60 grams 05/04/22 05/07/22 Rx powder Patient History Medical History (Updated 05/09/22 @ 12:36 by Jose Keane MD) Abdominal distension Anxiety and depression Asthma Asthma LAST USED RESCUE INHALER>BEEN A WHILE Bilateral tinnitus Colostomy present Environmental allergies GERD (gastroesophageal reflux disease) Gluten intolerance History of anorexia nervosa History of ileus S/P HYSTERECTOMY Itching REASON FOR DAPSONE Large bowel obstruction Low iron HX IRON INFUSION Migraine Ovarian cancer PRESENT DX>REASON FOR A-PORT (HAS RECIEVED 6 CYCLES OF CHEMO 1 YEAR AGO) Small bowel obstruction Small bowel obstruction Surgical History H/O abdominal surgery AT [place] 07/20/21 TO REMOVE CANCER IN ABDOMEN/COLON RESECTION WITH COLOSTOMY & INTRAPERITONEAL CHEMO H/O total hysterectomy + REMOVAL OVARIAN CYSTECTOMY History of colonoscopy History of esophagogastroduodenoscopy (EGD) History of knee surgery LEFT PATELLA REPAIR Nausea and vomiting after administration of anesthetic agent Port-A-Cath in place (08/30/21) Insertion Access Port with Fluoroscopy(Right) - Ilan Vee DO 08/30/2021 [place] teeth removed Family History Grandmother (Maternal) Breast cancer Hypertension Grandfather (Maternal) No problems noted. Father Hearing loss Mother Hearing loss Allergies Asthma Sister Allergies Asthma Other No family history of adverse response to anesthesia No family history of bleeding disorder Denies family history of Heart disease Cancer Stroke Social History Smoking Status: Never smoker Second Hand Exposure: No; Hx Alcohol Use: No Hx Substance Use: No Preferred Language: Nicaraguan Communication Ability: Effective Visual Impairment: Limited Hearing Ability: Normal Clinical Trial Data Manager Required: No Beliefs That Will Affect Care: None marital status: Current Living Situation: Spouse current occupational status: employed and retired 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 Seatbelt Use: always Sunscreen Use: Yes Do you think of yourself as: straight/heterosexual Assistive Devices: None Review of Systems Review of Systems: All systems reviewed & are unremarkable except as noted in HPI & below Physical Exam Constitutional: WD/WN, vitals as above + thin, + frail appearing, cooperative and comfortable; no acute distress and not ill appearing Neck: normal visual inspection and trachea midline Respiratory: normal respiratory effort; no respiratory distress and no labored breathing Gastrointestinal (Abdomen): Inspection/Auscultation: abdomen normal to inspection, normal bowel sounds and + abdominal surgical scar (midline laparotomy scar); abdomen not distended Percussion/Palpation: abdomen soft; abdomen nontender, no guarding and abdomen not rigid LLQ ostomy with pink stoma, no output in bag but just changed prior to examination Skin: no rashes, warm and dry Psychiatric: Orientation: alert and oriented x 3 Results & Data ([facility]) Vital Signs (Past 12 Hours) Vital Signs Temp Pulse Pulse Resp BP Pulse Ox O2 Del Method 05/09/22 11:48 36.8 C 85 19 124/76 98 Room Air 05/09/22 07:30 36.8 C 81 20 102/67 97 Room Air 05/09/22 07:01 76 05/09/22 02:53 36.8 C 96 H 16 115/71 97 Room Air Laboratory Results 05/09/22 05/09/22 Range/Units 06:37 06:37 WBC 26.27 H (4.8-10.8) K/ul RBC 2.72 L (3.93-5.22) M/uL Hgb 9.4 L (12.0-16.0) g/dl Hct 29.5 L (34.1-44.9) % MCV 108.5 H (80.0-100.0) fL MCH 34.6 H (25.0-34.0) pg MCHC 31.9 L (32.0-36.0) g/dL RDW Std Deviation 67.7 H (36.4-46.3) fL RDW Coeff of Risa 16.9 H (11.5-14.5) % Plt Count 167 (130-400) K/uL MPV 10.7 (9.4-12.3) fL Absolute Nucleated RBC 0.02 H (0-0) K/uL Nucleated RBC % (auto) 0.1 % Neutrophils % (Manual) 95 % Lymphocytes % (Manual) 4 % Monocytes % (Manual) 1 % Neutrophils # (Manual) 24.96 H (1.4-6.5) K/uL Total Absolute Neuts 24.96 H (1.4-6.5) K/uL Lymphocytes # (Manual) 1.05 L (1.2-3.4) K/uL Total Abs Lymphocytes 1.05 L (1.2-3.4) K/uL Monocytes # (Manual) 0.26 (0.24-0.82) K/uL Dohle Bodies 1+ Sodium 141 (136-145) mmol/L Potassium 3.5 (3.5-5.1) mmol/L Chloride 111 H (98-107) mmol/L Carbon Dioxide 26 (21-32) mmol/L Anion Gap 4 (3-11) BUN 7 (6-23) mg/dl Creatinine 0.50 L (0.6-1.2) mg/dl Est Cr Clr Drug Dosing 84.3 ml/min Est GFR ( Amer) 126.3 ml/min Est GFR (Non-Af Amer) 109.0 ml/min BUN/Creatinine Ratio 14.0 (10-20) Glucose 87 (70-99(Fasting)) mg/dl Calcium 8.2 L (8.5-10.1) mg/dl Diagnostic Findings ABDOMEN AND PELVIS CT WITH IV CONTRAST 05/07/2022 CT DOSE: 260.78 mGy.cm HISTORY: Acute generalized abdominal pain with bloating poss obstruc TECHNIQUE: Multiaxial CT images of the abdomen and pelvis were performed following the IV administration of 87 cc of Optiray, A dose lowering technique was utilized adhering to the principles of ALARA. COMPARISON STUDY: CT abdomen and pelvis 03/06/2022 FINDINGS: No acute process of the imaged lower chest. No pneumatosis or pneumoperitoneum. The spleen is enlarged measuring up to 15.4 cm in length. Unremarkable pancreas and adrenal glands. Distended gallbladder. Unremarkable liver. There is patency of the hepatic and portal veins. Unremarkable kidneys. There is no hydronephrosis. Unremarkable urinary bladder. Aorta and IVC appear unremarkable. There is no lymphadenopathy identified. Gaseous distention of the distal esophagus, stomach, proximal and mid small bowel is redemonstrated and appears similar to the most recent comparison study. Partial bowel resection with left lower quadrant colostomy again noted. Dilated small bowel within the midabdomen measures up to approximately 5 cm, also unchanged. Several loops of small bowel demonstrate mild wall thickening. There is no clear transition point identified. 8 mm peritoneal soft tissue nodule within the abdominal left lower quadrant is stable and image 3:15. Small to moderate ascites with mild peritoneal thickening and enhancement. Surgically absent uterus. Unremarkable soft tissues. There is no acute fracture. IMPRESSION: 1. Prior partial bowel resection with left lower quadrant colostomy. 2. Marked gaseous distention of the distal esophagus, stomach and proximal to mid small bowel is redemonstrated and appears similar to the 03/06/2022 study. A partial small bowel obstruction is favored. Follow-up recommended. 3. Ascites with peritoneal carcinomatosis appears stable. 4. Splenomegaly. 5. Additional findings as above. KUB 05/09/2022 KUB CLINICAL HISTORY: Small bowel obstruction. FINDINGS: An AP supine abdominal radiograph is compared to study dated 03/08/2022 and correlated with abdominal CT dated 05/07/2022. Surgical clips and suture material project over the lower abdomen. There is persistent gaseous distention of the small bowel loops, likely representing persistent obstruction. No evidence of intraperitoneal free air is seen on this supine image. There are no abnormal abdominal calcifications. Phleboliths are seen in the pelvis. The bony structures appear intact. IMPRESSION: Postsurgical change as above with evidence of persistent bowel obstruction. (1) Ovarian cancer Laterality: unspecified laterality Qualified Code(s): C56.9 - Malignant neoplasm of unspecified ovary
[2022-05-09] MEDS: LORazepam 0.5 MG TAB PO PRN (21:01)
[2022-05-10] MEDS: D5NSS + 20MEQ KCL 20 MEQ/1,000 ML BAG IV SCH ×2 (03:11→13:49)
--- NOTE | 2022-05-10 06:11 | Hospitalist Progress Note ---
Date of Service May 09, 2022 Assessment & Plan (1) Ovarian cancer: Plan: Much improved with conservative measures. As per original consultation would prefer to avoid surgery within 4 weeks of bevacizumab administration unless urgent. 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 Guidance largely come from MD Duncan but anticipate that we will be holding her bevacizumab for the next 4 to 6 weeks until we are sure that additional surgical intervention is not going to be required Present on Admission?: Yes Plan Focus on stabilization with respect to small bowel obstruction Admission and Anticipated Discharge Date Admission Date: May 07, 2022 Subjective Feels improved, is passing some flatus and currently not nauseated or vomitting Physical Exam Physical Exam: VSS abdomen is not distended, ostomy site seems stable, lung and cardiac exam seems stable Results & Data Results & Data ([facility]) Vital Signs (Past 12 Hours) Vital Signs Temp Pulse Resp BP Pulse Ox O2 Del Method 05/09/22 23:56 37.1 C 90 18 123/74 98 Room Air 05/09/22 19:49 36.8 C 84 20 118/76 99 Room Air PG Care Time/CCT Total # of Minutes Spent Total Time Spent: 15 Total Time Spent with Patient: Total time spent is greater than 50% in coordination of care (as documented) at patient's floor/unit and/or counseling patient: Coding Level of Care Code 12947 Subseq Hosp Care Lvl 1 History Problem Focused Exam Problem Focused Medical Decision Making Low Complexity Diagnoses Ovarian cancer C56.9 Laterality: unspecified laterality (1) Ovarian cancer Laterality: unspecified laterality Qualified Code(s): C56.9 - Malignant neoplasm of unspecified ovary
[2022-05-10 07:37] LABS: Hematocrit (blood only) 27.6 % (34.1-44.9); Hemoglobin 8.7 g/dl (12.0-16.0); Mean Corpuscular Hemoglobin 33.9 pg (25.0-34.0); Mean Corpuscular Hgb Conc 31.5 g/dL (32.0-36.0); Mean Corpuscular Volume 107.4 fL (80.0-100.0); Mean Platelet Volume 10.6 fL (9.4-12.3); Platelet Count 145 K/uL (130-400); RDW Standard Deviation 63.4 fL (36.4-46.3); Red Blood Count 2.57 M/uL (3.93-5.22); White Blood Count 15.19 K/ul (4.8-10.8)
[2022-05-10 08:05] LABS: BUN Creatinine Ratio 11.1 (10-20); Calcium 8.1 mg/dl (8.5-10.1); Est GFR (African American) 130.7 ml/min; Est GFR (Non-African American) 112.8 ml/min; Potassium 3.7 mmol/L (3.5-5.1)
[2022-05-10 08:17] LABS: Ferritin 416.8 ng/ml (8-388)
[2022-05-10 08:18] LABS: ALC (manual) 0.76 K/uL (1.2-3.4); ANC (manual) 14.13 K/uL (1.4-6.5); Dohle Bodies 1+; Lymphocytes # (manual) 0.76 K/uL (1.2-3.4); Lymphocytes % (manual) 5 %; Monocytes % (manual) 2 %; Neutrophils # (manual) 14.13 K/uL (1.4-6.5); Neutrophils % (manual) 93 %
[2022-05-10] MEDS: HEPARIN SOD 5,000 UNIT/0.5 ML VIAL SQ SCH ×2 (08:58→21:00)
[2022-05-10] MEDS: PANTOprazole 40 MG in SYRINGE 0 ML IV SCH ×2 (08:58→20:59)
--- NOTE | 2022-05-10 10:17 | Surgery Progress Note ---
Date of Service May 10, 2022 Assessment & Plan (1) SBO (small bowel obstruction): Plan Her small bowel obstruction seems to have resolved. She has gas and stool in the bag. We may slowly advance her diet as tolerated. We will continue to follow along. Admission and Anticipated Discharge Date Admission Date: May 07, 2022 Subjective She is doing fairly well. There is gas and stool in her ostomy bag from overnight. She is tolerating sips of clears. She denies nausea or vomiting. Physical Exam Physical Exam: Abdomen: Soft, nontender, mild distention; ostomy is pink and viable, there is gas and liquid stool in the ostomy bag Results & Data ([facility]) Vital Signs (Past 12 Hours) Vital Signs Temp Pulse Resp BP BP Pulse Ox O2 Del Method 05/10/22 07:27 36.9 C 84 16 104/65 97 Room Air 05/09/22 23:56 37.1 C 90 18 123/74 98 Room Air
--- NOTE | 2022-05-10 14:17 | Hospitalist Progress Note ---
Date of Service May 10, 2022 Assessment & Plan (1) SBO (small bowel obstruction): Plan: The patient states the NG tube came out by itself. KUB on May 09 continued to show evidence of bowel obstruction but these may be chronic findings since she has definitely improved. Diet advanced to full liquids.. General surgery consult appreciated. (2) Abdominal ascites: Plan: moderate malignant ascites noted on CT abd. Receives periodic therapeutic paracentesis as outpatient. She does not appear to need paracentesis at this time. Oncology indicates repeat abdominal CT scanning is not necessary at this time. (3) Leukocytosis: Plan: significant leukocytosis probably due to recent Neulasta medication. WBC is tr ending down now. Oncology consultation appreciated (4) Ovarian cancer: Plan: She is receiving outpatient chemo, last treatment on 05/05/22. Oncology management (5) Failure to thrive: Plan: in setting of ovarian cancer. Supportive care (6) Hypothyroidism: Plan: Oral thyroid replacement therapy (7) Migraine: Plan: Medication management as needed (8) Anemia: Plan: chronic, stable. Serial labs (9) Hyponatremia: Plan: mild. Serial labs (10) Colostomy present: Plan: routine care. The left lower quadrant colostomy bag does contain some air and liquids (11) Port-A-Cath in place: Plan: The patient desires that the venous access port be used and no peripheral IVs. (12) Hypokalemia: Plan: Corrected with intravenous potassium replacement. Serial labs Plan Discharge to home soon. Hopefully tomorrow, May 11 Admission and Anticipated Discharge Date Admission Date: May 07, 2022 Subjective Alert and oriented. She is improving. Surgery entry noted. Diet advanced to full liquids. She is requesting to restart her Flonase nasal spray and Zoloft which have been done. Potassium corrected to 3.7. White blood cell count continues to decrease down to 15,000. Hopefully home soon Review of Systems Review of Systems: Constitutional-no fever or chills ENT-no blurred vision, no double vision, no epistaxis, no sore throat Respiratory-no cough, no wheezing, no shortness of breath Cardiac-no palpitations, no chest pain, no syncope GI-no nausea, vomiting, diarrhea, melena, hematochezia -no urinary retention, no urinary incontinence, no dysuria, no hematuria Musculoskeletal-no joint pain, no muscle tenderness Skin-no bruising, no rashes, no pruritus Neuro-no isolated weakness, no paresthesia, no weakness Psych-no depression, no anxiety Physical Exam Physical Exam: General-alert and oriented x3, no fevers, no chills HEENT-head atraumatic and normocephalic, pupils equal and reactive to light, extraocular muscles intact Neck-no lymphadenopathy or thyromegaly, trachea midline Chest-clear to auscultation percussion. No rales wheezing or rhonchi Cardiac-regular rate and rhythm, normal S1 and S2, no murmurs Abdomen-normal bowel sounds, nontender. Nondistended. The left lower quadrant ostomy bag does contain some air and liquid. Extremities-no cyanosis, clubbing, or edema Neuro-cranial nerves II through XII intact, motor and sensory function within normal limits, strength symmetrical , no focal deficits Psych-normal affect, normal mood Results & Data Results & Data ([facility]) Vital Signs (Past 12 Hours) Vital Signs Temp Pulse Resp BP Pulse Ox O2 Del Method 05/10/22 07:27 36.9 C 84 16 104/65 97 Room Air Laboratory Results 05/10/22 06:55 05/10/22 06:55 PG Care Time/CCT Total # of Minutes Spent Total Time Spent with Patient: Total time spent is greater than 50% in coordination of care (as documented) at patient's floor/unit and/or counseling patient: Coding Level of Care Code 52404 Subseq Hosp Care Lvl 3 Diagnoses SBO (small bowel obstruction) K56.609 Abdominal ascites R18.8 Leukocytosis D72.829 Ovarian cancer C56.9 Laterality: unspecified laterality Failure to thrive Hypothyroidism E03.9 Migraine G43.909 Anemia D64.9 Hyponatremia E87.1 Colostomy present Z93.3 Port-A-Cath in place Z95.828 Hypokalemia E87.6 (1) Ovarian cancer Laterality: unspecified laterality Qualified Code(s): C56.9 - Malignant neoplasm of unspecified ovary
[2022-05-10] MEDS: POLYETHYLENE (MIRALAX) 17 GM PACK PO SCH (17:24)
[2022-05-10] MEDS: SENNA 8.6 MG TAB PO SCH (17:24)
[2022-05-10] MEDS: LORazepam 0.5 MG TAB PO PRN (20:57)
[2022-05-10] MEDS ORDERED: SERTRALINE HCL 100 MG TABLET PO SCH (21:00)
[2022-05-10] MEDS ORDERED: FLUTICASONE PROPIONATE NA SPR 16 GM BTL SCH (21:00)
[2022-05-11] MEDS: D5NSS + 20MEQ KCL 20 MEQ/1,000 ML BAG IV SCH (00:33)
[2022-05-11 06:26] LABS: BUN Creatinine Ratio 8.7 (10-20); Calcium 7.9 mg/dl (8.5-10.1); Creatinine Clr Calc Pharmacy 85.7 ml/min; Est GFR (African American) 129.8 ml/min; Potassium 3.6 mmol/L (3.5-5.1)
[2022-05-11 06:47] LABS: Basophils # (auto) 0.03 K/uL (0-0.2); Basophils % (auto) 0.3 %; Dohle Bodies 1+; Eosinophils # (auto) 0.03 K/uL (0-0.50); Eosinophils % (auto) 0.3 %; Hematocrit (blood only) 25.2 % (34.1-44.9); Immature Granulocytes # (auto) 0.17 K/uL (0.00-0.02); Immature Granulocytes % (auto) 1.9 %; Lymphocytes # (auto) 1.43 K/uL (1.2-3.4); Lymphocytes % (auto) 15.9 %; Mean Corpuscular Hgb Conc 31.7 g/dL (32.0-36.0); Mean Corpuscular Volume 107.2 fL (80.0-100.0); Mean Platelet Volume 10.7 fL (9.4-12.3); Monocytes # (auto) 0.27 K/uL (0.24-0.82); Neutrophils # (auto) 7.08 K/uL (1.4-6.5); Neutrophils % (auto) 78.6 %; Platelet Count 132 K/uL (130-400); RDW Coefficient of Variation 15.6 % (11.5-14.5); RDW Standard Deviation 61.3 fL (36.4-46.3); Red Blood Count 2.35 M/uL (3.93-5.22); White Blood Count 9.01 K/ul (4.8-10.8)
[2022-05-11] MEDS: PANTOprazole 40 MG in SYRINGE 0 ML IV SCH (08:43)
[2022-05-11] MEDS: SENNA 8.6 MG TAB PO SCH (08:44)
[2022-05-11] MEDS: HEPARIN SOD 5,000 UNIT/0.5 ML VIAL SQ SCH (08:44)
[2022-05-11] MEDS: POLYETHYLENE (MIRALAX) 17 GM PACK PO SCH (08:44)
[2022-05-11] MEDS ORDERED: SERTRALINE HCL 100 MG TABLET PO SCH (09:00)
[2022-05-11] MEDS ORDERED: FLUTICASONE PROPIONATE NA SPR 16 GM BTL SCH (09:00)
--- NOTE | 2022-05-11 09:48 | Discharge Summary ---
Date of Service May 11, 2022 Admission HPI Per Admitting Provider 57 y/o female w/ PMHx of ovarian cancer s/p ostomy w/ hx of bowel obstruction who presents w/ several days of nausea and upper abd tightness and decreased ostomy output since today. She describes increased bloating, burping, hiccups, reflux, and tightness in epigastric area. Pain is mainly at low back. She received outpatient chemotherapy and Neulasta 2 day ago. Denies infectious symptoms such as fever/chills, cough, urinary symptoms. She is inquiring about TPN as she is concerned about chronic malnourishment. is present at bedside. ED course: 500mL NSS. Dilaudid 0.5mgx2. Principal Diagnosis Recurrent small bowel obstruction, Neulasta induced leukocytosis, hypokalemia Discharge Exam General-alert and oriented x3, no fevers, no chills HEENT-head atraumatic and normocephalic, pupils equal and reactive to light, extraocular muscles intact Neck-no lymphadenopathy or thyromegaly, trachea midline Chest-clear to auscultation percussion. No rales wheezing or rhonchi Cardiac-regular rate and rhythm, normal S1 and S2, no murmurs Abdomen-normal bowel sounds, nontender. Nondistended. The left lower quadrant ostomy bag does contain some air and liquid. Extremities-no cyanosis, clubbing, or edema Neuro-cranial nerves II through XII intact, motor and sensory function within normal limits, strength symmetrical , no focal deficits Psych-normal affect, normal mood Discharge Data Allergies Allergy/AdvReac Type Severity Reaction Status Date / Time doxycycline Allergy Intermediate RASH Verified 05/07/22 21:16 gluten AdvReac Intermediate Abdominal Verified 05/07/22 21:16 Pain lactose AdvReac Intermediate Abdominal Verified 05/07/22 21:16 Pain Penicillins AdvReac Intermediate Nausea, Verified 05/07/22 21:16 diarrhea Consultations 05/07/22 22:05 ED Decision to Admit Stat 05/08/22 07:00 Consult Hematology Routine 05/09/22 12:19 Consult General Surgery Routine Ordered Studies 05/07/22 19:45 CT abd pelvis IV con only Urgent Hospital Course (1) SBO (small bowel obstruction): Appears to have resolved. Diet has been advanced. Surgery consultation appreciated. (2) Abdominal ascites: moderate malignant ascites noted on CT abd. Receives periodic therapeutic paracentesis as outpatient. She does not appear to need paracentesis at this time. Oncology indicates repeat abdominal CT scanning is not necessary at this time. (3) Leukocytosis: significant leukocytosis probably due to recent Neulasta medication. WBC is trending down now. Oncology consultation appreciated (4) Ovarian cancer: She is receiving outpatient chemo, last treatment on 05/05/22. Oncology management (5) Failure to thrive: in setting of ovarian cancer. Supportive care (6) Hypothyroidism: Oral thyroid replacement therapy (7) Migraine: Medication management as needed (8) Anemia: chronic, stable. Serial labs (9) Hyponatremia: mild. Serial labs (10) Colostomy present: routine care. The left lower quadrant colostomy bag does contain some air and liquids (11) Port-A-Cath in place: The patient desires that the venous access port be used and no peripheral IVs. (12) Hypokalemia: Corrected with intravenous potassium replacement. Serial labs (13) Malnutrition: Severe protein calorie malnutrition per [place] criteria Plan Discharge to home todayMay 11 Total Time Total Time Spent Total Time Spent (In Minutes): 35 minutes Discharge Plan Discharge Items Patient Disposition: Home - Self-Care Reason For Visit: PARTIAL SBO Discharge Diagnosis: Recurrent small bowel obstruction, hypokalemia, Neulasta induced leukocytosis Activity: Resume your previous activity Non-emergency contact: Primary Care Provider Call non-emergency contact if: you have any medication questions Follow-up/Referrals: Misbah Mast DO [Primary Care Provider] - Diet: Other - See Diet Comment Diet Comment: Resume diet as before Addtl Attending Provider Instructions: All medications remain the same. Resume diet as before. Pending Studies at Discharge: No Stand-Alone Forms: My [facility] Compufirst, Smoking Cessation Medications and DC Order Prescriptions: Continued lorazepam 0.5 mg tablet 0.5 mg PO BID PRN (Reason: anxiety) Qty: 30 0RF cholecalciferol (vitamin D3) 50 mcg (2,000 unit) capsule 50 mcg PO QAM fluticasone propionate [Flonase Allergy Relief] 50 mcg/actuation spray,suspension 1 spray intranasal BID Rx Instructions: administer into each nostril fexofenadine [Liana Allergy] 180 mg tablet 180 mg PO HS topiramate [Topamax] 100 mg tablet 100 mg PO QPM polyethylene glycol 3350 [Miralax] 17 gram/dose powder 17 g PO DAILY senna 8.6 mg capsule 8.6 mg PO DAILY [id number] Capsule 1 cap PO DAILY PRN (Reason: MIGRAINES) Rx Instructions: MIDRIN acetaminophen [Tylenol] 325 mg tablet 325 mg PO QID PRN (Reason: Pain) nystatin 100,000 unit/gram powder 1 applic topical .COMPLEX Qty: 60 0RF Rx Instructions: 1 applic topically with ostomy changes; Protonix [address] for susp in packet 40 mg PO QAM sertraline 100 mg tablet 200 mg PO QPM montelukast 10 mg tablet 10 mg PO QPM prochlorperazine maleate [Compazine] 5 mg Tablet 5 mg PO BID PRN (Reason: Nausea) Qvar RediHaler 40 mcg/actuation Hfa Aerosol Breath Activated 1 inh INHALATION QAM Ajovy Autoinjector 225 mg/1.5 mL Auto-Injector 225 mg SUBCUT MONTHLY Rx Instructions: RECIEVES 1 X MONTHLY famotidine 20 mg tablet 20 mg PO QAM dapsone 25 mg tablet 25 mg PO BID levothyroxine 25 mcg Tablet 25 mcg PO DAILY ondansetron HCl 4 mg Tablet 4 mg PO Q6H PRN (Reason: Nausea) oxycodone-acetaminophen 5-325 mg tablet 1 tab PO Q4 PRN (Reason: Pain) Discharge Orders: Discharge Order (Routine); Ordered 05/11/22 Ordered By: Jose Keane Admission Data Admit Date/Time: 05/07/22 22:56 Attending Provider: Jose Keane Admit Provider: Tunde Prabhakar Primary Care Provider: Misbah Mast Other Providers: Gelacio Chopra ; Madai Maldonado ; Jose Trotter ; Phan Castañeda ; Jaron Patricio ; Jesus Blackburn Jr ; Manpreet Celeste ; Jeremi Araya ; Leisa Lim ; Ilan Vee ; Rafi Tobar Coding Level of Care Code D/C DAY MANAGEMENT >30 MINS Diagnoses SBO (small bowel obstruction) K56.609 Abdominal ascites R18.8 Leukocytosis D72.829 Ovarian cancer C56.9 Laterality: unspecified laterality Failure to thrive Hypothyroidism E03.9 Migraine G43.909 Anemia D64.9 Hyponatremia E87.1 Colostomy present Z93.3 Port-A-Cath in place Z95.828 Hypokalemia E87.6 Malnutrition E46
--- NOTE | 2022-05-11 11:30 | Surgery Progress Note ---
Date of Service May 11, 2022 Assessment & Plan (1) SBO (small bowel obstruction): Plan Resolved + bowel function with liquid stool in colostomy Plan: advance to low fiber/soft diet for lunch okay from surgical standpoint for discharge Dr. Benito has seen and examined pt, agrees with above. Admission and Anticipated Discharge Date Admission Date: May 07, 2022 Supervising Physician Co-Signing Physician Notes I have seen and examined the patient personally and agree with the above assessment and plan. She has a resolved small bowel obstruction, she has gas and air in her colostomy bag. She is tolerating a diet. We will sign off for now. Call with any questions or concerns. Subjective patient seen this morning feeling well had some bloating/pressure last evening after dinner but states it resolved after her ostomy started functioning. Has not had that sensation as of yet after breakfast of full liquids having some mild RLQ abdominal pain. Physical Exam Constitutional: + thin, + frail appearing and cooperative; no acute distress and not ill appearing Respiratory: normal respiratory effort; no respiratory distress, no labored breathing and no retractions Gastrointestinal (Abdomen): Inspection/Auscultation: abdomen normal to inspection and + abdominal surgical scar (midline laparotomy scar); abdomen not distended Percussion/Palpation: + abdomen tender (mild in RLQ) and abdomen soft; no guarding and abdomen not rigid Left colostomy with liquid stool Skin: no rashes, warm and dry Psychiatric: Orientation: alert and oriented x 3 Results & Data ([facility]) Vital Signs (Past 12 Hours) Vital Signs Temp Pulse Resp BP BP Pulse Ox O2 Del Method 05/11/22 08:00 Room Air 05/11/22 09:50 37.0 C 77 18 121/78 115/63 97 05/11/22 07:18 37.0 C 77 18 115/63 97 Room Air 05/11/22 03:22 36.8 C 88 16 117/70 96 Room Air Laboratory Results 05/11/22 05/11/22 Range/Units 05:29 05:29 WBC 9.01 (4.8-10.8) K/ul RBC 2.35 L (3.93-5.22) M/uL Hgb 8.0 L (12.0-16.0) g/dl Hct 25.2 L (34.1-44.9) % MCV 107.2 H (80.0-100.0) fL MCH 34.0 (25.0-34.0) pg MCHC 31.7 L (32.0-36.0) g/dL RDW Std Deviation 61.3 H (36.4-46.3) fL RDW Coeff of Risa 15.6 H (11.5-14.5) % Plt Count 132 (130-400) K/uL MPV 10.7 (9.4-12.3) fL Immature Gran % (Auto) 1.9 % Neut % (Auto) 78.6 % Lymph % (Auto) 15.9 % Bryan % (Auto) 3.0 % Eos % (Auto) 0.3 % Baso % (Auto) 0.3 % Neut # (Auto) 7.08 H (1.4-6.5) K/uL Lymph # (Auto) 1.43 (1.2-3.4) K/uL Bryan # (Auto) 0.27 (0.24-0.82) K/uL Eos # (Auto) 0.03 (0-0.50) K/uL Baso # (Auto) 0.03 (0-0.2) K/uL Immature Gran # (Auto) 0.17 H (0.00-0.02) K/uL Dohle Bodies 1+ Sodium 140 (136-145) mmol/L Potassium 3.6 (3.5-5.1) mmol/L Chloride 111 H (98-107) mmol/L Carbon Dioxide 25 (21-32) mmol/L Anion Gap 4 (3-11) BUN 4 L (6-23) mg/dl Creatinine 0.46 L (0.6-1.2) mg/dl Est Cr Clr Drug Dosing 85.7 ml/min Est GFR ( Amer) 129.8 ml/min Est GFR (Non-Af Amer) 112.0 ml/min BUN/Creatinine Ratio 8.7 L (10-20) Glucose 93 (70-99(Fasting)) mg/dl Calcium 7.9 L (8.5-10.1) mg/dl
== END 2022-05-11 13:10 | disposition home or self-care (01) | DRG 388 ==
LOC: ED 19:26 → SUATTDRO 22:56 → 2W 22:56
DX: F41.9 Anxiety disorder, unspecified; E03.9 Hypothyroidism, unspecified; D64.9 Anemia, unspecified; E87.1 Hypo-osmolality and hyponatremia; Z88.1 Allergy status to other antibiotic agents; T45.8X5A Adverse effect of other primarily systemic and hematological agents, initial encounter; Z68.1 Body mass index [BMI] 19.9 or less, adult; R62.7 Adult failure to thrive; E43 Unspecified severe protein-calorie malnutrition; Z88.0 Allergy status to penicillin; E87.6 Hypokalemia; C56.9 Malignant neoplasm of unspecified ovary; Z93.3 Colostomy status; Z88.8 Allergy status to other drugs, medicaments and biological substances; Z95.828 Presence of other vascular implants and grafts; R18.0 Malignant ascites; R18.8 Other ascites; G43.909 Migraine, unspecified, not intractable, without status migrainosus; C20 Malignant neoplasm of rectum; K56.600 Partial intestinal obstruction, unspecified as to cause; Y92.009 Unspecified place in unspecified non-institutional (private) residence as the place of occurrence of the external cause; D72.829 Elevated white blood cell count, unspecified

== ENCOUNTER 2022-06-02 19:58 | Inpatient (IN) ==
[2022-06-02 21:48] LABS: Basophils # (auto) 0.04 K/uL (0-0.2); Basophils % (auto) 0.3 %; Hematocrit (blood only) 35.1 % (34.1-44.9); Hemoglobin 11.3 g/dl (12.0-16.0); Immature Granulocytes # (auto) 0.04 K/uL (0.00-0.02); Immature Granulocytes % (auto) 0.3 %; Lymphocytes # (auto) 1.18 K/uL (1.2-3.4); Lymphocytes % (auto) 9.1 %; Mean Corpuscular Hemoglobin 34.3 pg (25.0-34.0); Mean Corpuscular Hgb Conc 32.2 g/dL (32.0-36.0); Mean Corpuscular Volume 106.7 fL (80.0-100.0); Mean Platelet Volume 9.4 fL (9.4-12.3); Monocytes % (auto) 5.4 %; Neutrophils # (auto) 11.02 K/uL (1.4-6.5); Neutrophils % (auto) 84.9 %; Platelet Count 526 K/uL (130-400); RDW Coefficient of Variation 16.8 % (11.5-14.5); Red Blood Count 3.29 M/uL (3.93-5.22); White Blood Count 12.98 K/ul (4.8-10.8)
[2022-06-02 22:09] LABS: Albumin Globulin Ratio 1.5 (0.9-2); Albumin Level 4.5 gm/dl (3.4-5.0); BUN Creatinine Ratio 9.5 (10-20); Bilirubin,Total 0.5 mg/dl (0.2-1.0); Calcium 9.6 mg/dl (8.5-10.1); Creatinine Clr Calc Pharmacy 52.2 ml/min; Est GFR (African American) 105.7 ml/min; Est GFR (Non-African American) 91.2 ml/min; Potassium 3.3 mmol/L (3.5-5.1); Total Protein 7.5 gm/dl (6.0-8.3)
--- NOTE | 2022-06-02 22:27 | XRay Report ---
XR KUB/Abdomen 1 view CLINICAL HISTORY: ?obstruction TECHNIQUE: 1 view of the abdomen was obtained. Comparison: Comparison is made to radiograph 05/15/2022 FINDINGS: Lung bases are unremarkable. The osseous structures are grossly unremarkable. There is prominent dila tion of the stomach and duodenum, with loops measuring up to 15 mm in diameter. The colon is nondiste nded. IMPRESSION: Findings compatible with small bowel obstruction with multiple loops of gas distended bowel and under distended colon. ACT 112: Negative or not required by law. Electronically signed by: Jeff Jordan M.D. 06/02/2022 10:25 PM
[2022-06-02] MEDS ORDERED: ONDANSETRON INJ 2 MG/ML 2 ML VIAL IV STA (23:16)
[2022-06-02] MEDS ORDERED: HYDROmorphone INJ 1 MG/ML SYRINGE IV STA (23:16)
--- NOTE | 2022-06-02 23:27 | Emergency Department Note ---
History of Present Illness General Chief complaint: Constipation Stated complaint: UPPER BOWEL BLOCKAGE X 2 DAYS Time Seen by Provider: 06/02/22 22:49 History of Present Illness Maximum Pain Intensity: 8 57-year-old female presents emergency department with a 2-day history of of abdominal distention and vomiting. The colostomy she has had decreased output. Patient states that she was just discharged recently for a bowel obstruction. Patient did receive chemotherapy treatment today. Patient states that she has increased pain is moderate in nature it is nonradiating. There are no other mitigating or alleviating factors Home Medications Medication Instructions Recorded Confirmed Type montelukast 10 mg tablet 10 mg PO QPM 11/05/19 06/02/22 History sertraline 100 mg tablet 200 mg PO QPM 11/05/19 06/02/22 History dapsone 25 mg tablet 25 mg PO BID 04/13/20 06/02/22 History famotidine 20 mg tablet 20 mg PO QAM 04/13/20 06/02/22 History cholecalciferol (vitamin D3) 50 50 mcg PO QAM 05/11/20 06/02/22 History mcg (2,000 unit) capsule fexofenadine 180 mg tablet 180 mg PO HS 05/11/20 06/02/22 History (Liana Allergy) fluticasone propionate 50 1 spray intranasal BID 05/11/20 06/02/22 History mcg/actuation nasal spray,suspension (Flonase Allergy Relief) topiramate 100 mg tablet (Topamax) 100 mg PO QPM 05/11/20 06/02/22 History beclomethasone dipropionate 40 1 inh inhalation QAM 05/12/20 06/02/22 History mcg/actuation HFA breath activated aerosol (Qvar RediHaler) fremanezumab-vfrm 225 mg/1.5 mL 225 mg subcut MONTHLY 05/12/20 06/02/22 History subcutaneous auto-injector (Ajovy) prochlorperazine maleate 5 mg 5 mg PO BID PRN Nausea 05/12/20 06/02/22 History tablet (Compazine) acetaminophen 325 mg tablet 325 mg PO QID PRN Pain 08/13/20 06/02/22 History (Tylenol) hzpsozlsuuvza-eocqpfrgtyzvnivctm-zcghziqmjwwnh 1 cap PO DAILY PRN MIGRAINES 08/13/20 06/02/22 History capsule oxycodone-acetaminophen 5 mg-325 1 tab PO Q4 PRN Pain 03/06/22 06/02/22 History mg tablet polyethylene glycol 3350 17 17 g PO DAILY 03/23/22 06/02/22 History gram/dose oral powder (Miralax) sennosides 8.6 mg capsule (senna) 8.6 mg PO DAILY 03/23/22 06/02/22 History lorazepam 0.5 mg tablet 0.5 mg PO BID PRN anxiety #30 tabs 03/24/22 06/02/22 Rx levothyroxine 25 mcg tablet 25 mcg PO DAILY 04/12/22 06/02/22 History nystatin 100,000 unit/gram topical 1 applic topical .COMPLEX #60 grams 05/04/22 06/02/22 Rx powder ondansetron 8 mg disintegrating 8 mg PO Q8H 30 days #90 tabs 05/12/22 06/02/22 Rx tablet pantoprazole 40 mg granules 40 mg PO BID 30 days #30 ea 05/23/22 06/02/22 Rx delayed-release for susp in packet (Protonix) Allergies Allergy/AdvReac Type Severity Reaction Status Date / Time doxycycline Allergy Intermediate RASH Verified 06/02/22 23:09 gluten AdvReac Intermediate Abdominal Verified 06/02/22 23:09 Pain lactose AdvReac Intermediate Abdominal Verified 06/02/22 23:09 Pain Penicillins AdvReac Intermediate Nausea, Verified 06/02/22 23:09 diarrhea Past Med/Surg History Medical History Abdominal distension Anxiety and depression Asthma Asthma LAST USED RESCUE INHALER>BEEN A WHILE Bilateral tinnitus Colostomy present Environmental allergies GERD (gastroesophageal reflux disease) Gluten intolerance History of anorexia nervosa History of ileus S/P HYSTERECTOMY Itching REASON FOR DAPSONE Large bowel obstruction Low iron HX IRON INFUSION Migraine Ovarian cancer PRESENT DX>REASON FOR A-PORT (HAS RECIEVED 6 CYCLES OF CHEMO 1 YEAR AGO) Small bowel obstruction Small bowel obstruction Surgical History H/O abdominal surgery AT [facility] 07/20/21 TO REMOVE CANCER IN ABDOMEN/COLON RESECTION WITH COLOSTOMY & INTRAPERITONEAL CHEMO H/O total hysterectomy + REMOVAL OVARIAN CYSTECTOMY History of colonoscopy History of esophagogastroduodenoscopy (EGD) History of knee surgery LEFT PATELLA REPAIR Nausea and vomiting after administration of anesthetic agent Port-A-Cath in place (08/30/21) Insertion Access Port with Fluoroscopy(Right) - Ilan Vee DO 08/30/2021 [place] teeth removed Family History Grandmother (Maternal) Breast cancer Hypertension Grandfather (Maternal) No problems noted. Father Hearing loss Mother Hearing loss Allergies Asthma Sister Allergies Asthma Other No family history of adverse response to anesthesia No family history of bleeding disorder Denies family history of Heart disease Cancer Stroke Social History Smoking Status: Never smoker Second Hand Exposure: No; Hx Alcohol Use: No Hx Substance Use: No Preferred Language: Kittitian Communication Ability: Effective Visual Impairment: Limited Hearing Ability: Normal Air Pollution Control Engineer Required: No Beliefs That Will Affect Care: None marital status: Current Living Situation: Spouse current occupational status: employed and 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 Seatbelt Use: always Sunscreen Use: Yes Do you think of yourself as: straight/heterosexual Assistive Devices: None Review of Systems A total of 10 systems reviewed and were otherwise negative Constitutional: no fever Respiratory: no cough Cardiovascular: no chest pain Gastrointestinal: + abdominal pain, + nausea and + vomiting Physical Exam Vital Signs Vital Signs - 24 hr 06/02/22 20:17 Temperature 36.5 C Temperature Source Temporal Artery Scan Pulse Rate 122 H Respiratory Rate 18 Respiratory Effort / Characteristics Non-Labored Spontaneous Respiratory Depth Normal Blood Pressure 142/93 H Blood Pressure Mean 109 Pulse Oximetry 96 Oxygen Delivery Method Room Air Sepsis Recent Fever Within 48 Hours No Sepsis New/Unexplained Change in Mental Status No Sepsis Action Taken by Nursing No Action Required GENERAL: Patient is awake alert in no acute distress patient is resting comfortably and showing no signs of anxiety EYES: The conjunctivae are clear. The pupils are round and reactive. EARS, NOSE, MOUTH AND THROAT: The nose is without any evidence of any deformity. Mucous membranes are moist. Tongue is midline. NECK: The neck is nontender and supple. RESPIRATORY: Normal respiratory effort is noted there is no evidence of wheezing rhonchi or rales CARDIOVASCULAR: Regular rate and rhythm noted there no murmurs rubs or gallops normal S1 normal S2. GASTROINTESTINAL: The abdomen is soft. Mild distention no bowel sounds present there is liquid in the colostomy bag PELVIS: The Pelvis is stable. No tenderness to palpation is noted. BACK: No midline tenderness or or step-off noted range of motion in flexion extension as well as rotation no signs of muscle spasm noted MUSCULOSKELETAL/EXTREMITIES: There is no evidence of gross deformity full range of motion is noted in the hips and shoulders. SKIN: There is no obvious evidence of any rash. There are no petechiae, pallor or cyanosis noted. NEUROLOGIC: Patient is awake alert and oriented x3 strength is symmetric Course Reevaluation(s) Reevaluation #1: Patient is resting in no distress, patient started on IV fluids, Dilaudid, Z ofran, NG tube Time: 23:29 Consultations Consultation #1: Case was discussed with general surgery for consultation Time: 23:29 Consultation #2: [facility] Time: 23:29 Medical Decision Making Medical Records Attestation: I reviewed the patient's medical records. Home Medications Current Medication List: was personally reviewed by me Laboratory Data Attestation: I reviewed the patient's lab results. Result diagrams: 06/02/22 21:34 06/02/22 21:34 Lab Results 06/02/22 06/02/22 06/02/22 Range/Units 21:34 21:34 21:34 WBC 12.98 H (4.8-10.8) K/ul RBC 3.29 L (3.93-5.22) M/uL Hgb 11.3 L (12.0-16.0) g/dl Hct 35.1 (34.1-44.9) % MCV 106.7 H (80.0-100.0) fL MCH 34.3 H (25.0-34.0) pg MCHC 32.2 (32.0-36.0) g/dL RDW Std Deviation 66.0 H (36.4-46.3) fL RDW Coeff of Risa 16.8 H (11.5-14.5) % Plt Count 526 H (130-400) K/uL MPV 9.4 (9.4-12.3) fL Immature Gran % (Auto) 0.3 % Neut % (Auto) 84.9 % Lymph % (Auto) 9.1 % Loving % (Auto) 5.4 % Eos % (Auto) 0.0 % Baso % (Auto) 0.3 % Neut # (Auto) 11.02 H (1.4-6.5) K/uL Lymph # (Auto) 1.18 L (1.2-3.4) K/uL Loving # (Auto) 0.70 (0.24-0.82) K/uL Eos # (Auto) 0.00 (0-0.50) K/uL Baso # (Auto) 0.04 (0-0.2) K/uL Immature Gran # (Auto) 0.04 H (0.00-0.02) K/uL Sodium 139 (136-145) mmol/L Potassium 3.3 L (3.5-5.1) mmol/L Chloride 103 (98-107) mmol/L Carbon Dioxide 24 (21-32) mmol/L Anion Gap 12 H (3-11) BUN 7 (6-23) mg/dl Creatinine 0.74 (0.6-1.2) mg/dl Est Cr Clr Drug Dosing 52.2 ml/min Est GFR ( Amer) 105.7 ml/min Est GFR (Non-Af Amer) 91.2 ml/min BUN/Creatinine Ratio 9.5 L (10-20) Glucose 116 H (70-99(Fasting)) mg/dl Calcium 9.6 (8.5-10.1) mg/dl Total Bilirubin 0.5 (0.2-1.0) mg/dl AST 23 (13-39) U/L ALT 13 (7-52) U/L Alkaline Phosphatase 90 (34-104) U/L Total Protein 7.5 (6.0-8.3) gm/dl Albumin 4.5 (3.4-5.0) gm/dl Globulin 3.0 (2.5-4.0) gm/dl Albumin/Globulin Ratio 1.5 (0.9-2) Lipase 36 (11-82) U/L SARS-CoV-2, RNA, NAAT NEGATIVE (NEGATIVE) Imaging Data Radiologist's Impression: KUB X-Ray 06/02/22 20:33 XR KUB/Abdomen 1 view CLINICAL HISTORY: ?obstruction TECHNIQUE: 1 view of the abdomen was obtained. Comparison: Comparison is made to radiograph 05/15/2022 FINDINGS: Lung bases are unremarkable. The osseous structures are grossly unremarkable. There is prominent dilation of the stomach and duodenum, with loops measuring up to 15 mm in diameter. The colon is nondistended. IMPRESSION: Findings compatible with small bowel obstruction with multiple loops of gas distended bowel and under distended colon. ACT 112: Negative or not required by law. Electronically signed by: Jeff Jordan M.D. 06/02/2022 10:25 PM [facility] Narrative Medical decision making differential diagnosis partial small bowel obstruction, small bowel obstruction, electrolyte abnormality, chronic pain. Plan is to check labs, abdominal series, patient clearly has a bowel obstruction on exam and x-ray, will place NG tube, give IV fluids give IV Dilaudid give IV Zofran. Case was discussed with Dr. Patricio from surgery Impression & Plan SBO (small bowel obstruction) Discharge Plan Visit Data Chief Complaint: Constipation Stated Complaint: UPPER BOWEL BLOCKAGE X 2 DAYS ED Provider: Jeremi Carrillo Discharge Problem: SBO (small bowel obstruction) Patient Disposition: Being Evaluated by Hospitalist Forms Stand Alone Forms: My [facility] Prescriptions Prescriptions: No Action lorazepam 0.5 mg tablet 0.5 mg PO BID PRN (Reason: anxiety) Qty: 30 0RF ondansetron 8 mg tablet,disintegrating 8 mg PO Q8H 30 Days Qty: 90 2RF pantoprazole [Protonix] 40 mg granules for susp in packet 40 mg PO BID 30 Days Qty: 30 3RF cholecalciferol (vitamin D3) 50 mcg (2,000 unit) capsule 50 mcg PO QAM fluticasone propionate [Flonase Allergy Relief] 50 mcg/actuation spray,suspension 1 spray intranasal BID Rx Instructions: administer into each nostril fexofenadine [Liana Allergy] 180 mg tablet 180 mg PO HS topiramate [Topamax] 100 mg tablet 100 mg PO QPM polyethylene glycol 3350 [Miralax] 17 gram/dose powder 17 g PO DAILY senna 8.6 mg capsule 8.6 mg PO DAILY qvievlb-gsnrhthxc-uqjemdgjjtqe Capsule 1 cap PO DAILY PRN (Reason: MIGRAINES) Rx Instructions: MIDRIN acetaminophen [Tylenol] 325 mg tablet 325 mg PO QID PRN (Reason: Pain) nystatin 100,000 unit/gram powder 1 applic topical .COMPLEX Qty: 60 0RF Rx Instructions: 1 applic topically with ostomy changes; sertraline 100 mg tablet 200 mg PO QPM montelukast 10 mg tablet 10 mg PO QPM prochlorperazine maleate [Compazine] 5 mg Tablet 5 mg PO BID PRN (Reason: Nausea) Qvar RediHaler 40 mcg/actuation Hfa Aerosol Breath Activated 1 inh INHALATION QAM Ajovy Autoinjector 225 mg/1.5 mL Auto-Injector 225 mg SUBCUT MONTHLY Rx Instructions: RECIEVES 1 X MONTHLY famotidine 20 mg tablet 20 mg PO QAM dapsone 25 mg tablet 25 mg PO BID levothyroxine 25 mcg Tablet 25 mcg PO DAILY oxycodone-acetaminophen 5-325 mg tablet 1 tab PO Q4 PRN (Reason: Pain) Referrals Referrals: Misbah Mast DO [Primary Care Provider] -
--- NOTE | 2022-06-03 00:10 | History & Physical Report ---
Date of Service June 03, 2022 Assessment & Plan (1) SBO (small bowel obstruction): Plan: 57 y/o F w/ PMHx of ovarian cancer and recurrent SBO who presents w/ abdominal pressure and bloating since 06/01. KUB suggests SBO. CT abd read pending. - NG tube low intermittent suction, NPO, maintenance fluids - per statrad, ct abd similar to 05/07 ct abd, which was consistent w/ markedly dilated small bowel c/w partial SBO. - per my read of kub, almost coffee-foreman sign appearing which could suggest closed loop sbo, but similar in appearance to 02/2022 kub, reassuring - defer GI and surgical consults at this time - mild leukocytosis 12s noted; most likely reactive. no infectious symptoms, though 2/4 SIRS (tachycardia) noted. follow clinically - minimize use of narcotic medications. prn IV toradol. - nausea control w/ prn zofran and compazine (2) Sinus tachycardia: Plan: - ecg reviewed. qtc 462. sinus tach 104. - replete electrolytes (3) GERD (gastroesophageal reflux disease): Plan: - IV protonix while npo (4) Anxiety and depression: Plan: - minimize use of ativan if possible. can consider benadryl for breakthrough/insomnia, though also try to minimize. hold home lamont (5) Asthma: Plan: - stable, continue home regimen (6) Hypothyroidism: Plan: - continue home levothyroxine (7) Colostomy present: Plan: - routine care as needed (8) Migraine: Plan: - continue home topiramate (9) Ascites: Plan: - per CT abd. stable moderate ascites. per prior CT abd's, likely 2/2 peritoneal carcinomatosis Plan NPO. NSS+kcl 100mL/hr. avoid use of chemoport while inpatient SCDs full code med surg, will request private room History of Present Illness Chief Complaint: abdominal pressure and bloating Primary Care Provider: Misbah Mast, DO 57 y/o F w/ PMHx of ovarian cancer and recurrent SBO who presents w/ abdominal pressure and bloating since 06/01. She has been following clear liquid diet for a day w/o relief. Ostomy output had been normal w/ exception of liquid only today. She had chemo infusion this morning. Neulasta timed to start in 24 hours. She denies fever/chills, cough, dysuria. After had last hospitalization, she had been doing slightly better, regaining some strength and eating slightly more. She has not had emesis. at bedside. ED course: Dilaudid 1mg. IV toradol. mild tachycardia up to 120s at arrival. wbc 12.98. Hb stable at 11.3. mild thrombocytosis 526. K 3.3. CT abd and kub suggestive of partial sbo. Allergies Allergy/AdvReac Type Severity Reaction Status Date / Time doxycycline Allergy Intermediate RASH Verified 06/02/22 23:09 gluten AdvReac Intermediate Abdominal Verified 06/02/22 23:09 Pain lactose AdvReac Intermediate Abdominal Verified 06/02/22 23:09 Pain Penicillins AdvReac Intermediate Nausea, Verified 06/02/22 23:09 diarrhea Home Medications Medication Instructions Recorded Confirmed Type montelukast 10 mg tablet 10 mg PO QPM 11/05/19 06/02/22 History sertraline 100 mg tablet 200 mg PO QPM 11/05/19 06/02/22 History dapsone 25 mg tablet 25 mg PO BID 04/13/20 06/02/22 History famotidine 20 mg tablet 20 mg PO QAM 04/13/20 06/02/22 History cholecalciferol (vitamin D3) 50 50 mcg PO QAM 05/11/20 06/02/22 History mcg (2,000 unit) capsule fexofenadine 180 mg tablet 180 mg PO HS 05/11/20 06/02/22 History (Lamont Allergy) fluticasone propionate 50 1 spray intranasal BID 05/11/20 06/02/22 History mcg/actuation nasal spray,suspension (Flonase Allergy Relief) topiramate 100 mg tablet (Topamax) 100 mg PO QPM 05/11/20 06/02/22 History beclomethasone dipropionate 40 1 inh inhalation QAM 05/12/20 06/02/22 History mcg/actuation HFA breath activated aerosol (Qvar RediHaler) fremanezumab-vfrm 225 mg/1.5 mL 225 mg subcut MONTHLY 05/12/20 06/02/22 History subcutaneous auto-injector (Ajovy) prochlorperazine maleate 5 mg 5 mg PO BID PRN Nausea 05/12/20 06/02/22 History tablet (Compazine) acetaminophen 325 mg tablet 325 mg PO QID PRN Pain 08/13/20 06/02/22 History (Tylenol) hqhwschmzqvml-tbpczmunesqlvxwsba-wpgbfhceaathz 1 cap PO DAILY PRN MIGRAINES 08/13/20 06/02/22 History capsule oxycodone-acetaminophen 5 mg-325 1 tab PO Q4 PRN Pain 03/06/22 06/02/22 History mg tablet polyethylene glycol 3350 17 17 g PO DAILY 03/23/22 06/02/22 History gram/dose oral powder (Miralax) sennosides 8.6 mg capsule (senna) 8.6 mg PO DAILY 03/23/22 06/02/22 History lorazepam 0.5 mg tablet 0.5 mg PO BID PRN anxiety #30 tabs 03/24/22 06/02/22 Rx levothyroxine 25 mcg tablet 25 mcg PO DAILY 04/12/22 06/02/22 History nystatin 100,000 unit/gram topical 1 applic topical .COMPLEX #60 grams 05/04/22 06/02/22 Rx powder ondansetron 8 mg disintegrating 8 mg PO Q8H 30 days #90 tabs 05/12/22 06/02/22 Rx tablet pantoprazole 40 mg granules 40 mg PO BID 30 days #30 ea 05/23/22 06/02/22 Rx delayed-release for susp in packet (Protonix) Past Med/Surg History Medical History Abdominal ascites Abdominal distension Anemia Anxiety and depression Asthma Asthma LAST USED RESCUE INHALER>BEEN A WHILE Bilateral tinnitus Colostomy present Environmental allergies Failure to thrive GERD (gastroesophageal reflux disease) Gluten intolerance History of anorexia nervosa History of ileus S/P HYSTERECTOMY Hypothyroidism Itching REASON FOR DAPSONE Large bowel obstruction Low iron HX IRON INFUSION Migraine Ovarian cancer Ovarian cancer PRESENT DX>REASON FOR A-PORT (HAS RECIEVED 6 CYCLES OF CHEMO 1 YEAR AGO) Ovarian cancer Port-A-Cath in place SBO (small bowel obstruction) Small bowel obstruction Small bowel obstruction Surgical History H/O abdominal surgery AT [place] 07/20/21 TO REMOVE CANCER IN ABDOMEN/COLON RESECTION WITH COLOSTOMY & INTRAPERITONEAL CHEMO H/O total hysterectomy + REMOVAL OVARIAN CYSTECTOMY History of colonoscopy History of esophagogastroduodenoscopy (EGD) History of knee surgery LEFT PATELLA REPAIR Nausea and vomiting after administration of anesthetic agent Port-A-Cath in place (08/30/21) Insertion Access Port with Fluoroscopy(Right) - Ilan Vee DO 08/30/2021 [place] teeth removed Family History Grandmother (Maternal) Breast cancer Hypertension Grandfather (Maternal) No problems noted. Father Hearing loss Mother Hearing loss Allergies Asthma Sister Allergies Asthma Other No family history of adverse response to anesthesia No family history of bleeding disorder Denies family history of Heart disease Cancer Stroke Social History Smoking Status: Never smoker Second Hand Exposure: No; Hx Alcohol Use: No Hx Substance Use: No Preferred Language: Telugu Communication Ability: Effective Visual Impairment: Limited Hearing Ability: Normal Director Shopper Marketing Required: No Beliefs That Will Affect Care: None marital status: Current Living Situation: Spouse current occupational status: employed and retired 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 Seatbelt Use: always Sunscreen Use: Yes Do you think of yourself as: straight/heterosexual Assistive Devices: Glasses Review of Systems Review of Systems: All systems reviewed & are unremarkable except as noted in HPI & below Physical Exam Physical Exam: General: Grossly A&O. NAD. Cooperative. HEENT: Atraumatic, normocephalic. EOMI Pulm: CTAB. -wheezes, -rales, -rhonchi. No respiratory distress. Cardiac: RRR, -mrg. Abdominal: Nontender to light palpation, nondistended, soft. bowel sounds audible, slightly sparse. Integ: No erythema of chemoport or ostomy. Msk: Moving all extrem. Results & Data Results & Data ([facility]) Vital Signs (Past 12 Hours) Vital Signs Temp Pulse Resp BP Pulse Ox O2 Del Method 06/02/22 20:17 36.5 C 122 H 18 142/93 H 96 Room Air Laboratory Results Cardiac Enzymes 06/02/22 Range/Units 21:34 AST 23 (13-39) U/L CBC 06/02/22 Range/Units 21:34 WBC 12.98 H (4.8-10.8) K/ul RBC 3.29 L (3.93-5.22) M/uL Hgb 11.3 L (12.0-16.0) g/dl Hct 35.1 (34.1-44.9) % Plt Count 526 H (130-400) K/uL Neut # (Auto) 11.02 H (1.4-6.5) K/uL Lymph # (Auto) 1.18 L (1.2-3.4) K/uL [place] # (Auto) 0.70 (0.24-0.82) K/uL Eos # (Auto) 0.00 (0-0.50) K/uL Baso # (Auto) 0.04 (0-0.2) K/uL Comprehensive Metabolic Panel 06/02/22 Range/Units 21:34 Sodium 139 (136-145) mmol/L Potassium 3.3 L (3.5-5.1) mmol/L Chloride 103 (98-107) mmol/L Carbon Dioxide 24 (21-32) mmol/L BUN 7 (6-23) mg/dl Creatinine 0.74 (0.6-1.2) mg/dl Glucose 116 H (70-99(Fasting)) mg/dl Calcium 9.6 (8.5-10.1) mg/dl AST 23 (13-39) U/L ALT 13 (7-52) U/L Alkaline Phosphatase 90 (34-104) U/L Total Protein 7.5 (6.0-8.3) gm/dl Albumin 4.5 (3.4-5.0) gm/dl Intake and Output 06/02/22 06/02/22 06/03/22 14:59 22:59 06:59 Other: Weight 38.5 kg Weight Measurement Method Chair Scale Patient Weight 06/03/22 06:59 Weight 38.5 kg Diagnostic Findings KUB X-Ray 06/02/22 20:33 XR KUB/Abdomen 1 view CLINICAL HISTORY: ?obstruction TECHNIQUE: 1 view of the abdomen was obtained. Comparison: Comparison is made to radiograph 05/15/2022 FINDINGS: Lung bases are unremarkable. The osseous structures are grossly unremarkable. There is prominent dilation of the stomach and duodenum, with loops measuring up to 15 mm in diameter. The colon is nondistended. IMPRESSION: Findings compatible with small bowel obstruction with multiple loops of gas distended bowel and under distended colon. ACT 112: Negative or not required by law. Electronically signed by: Jeff Jordan M.D. 06/02/2022 10:25 PM statrad preliminary findings only - see final report for complete findings CT abdomen pelvis w/ contrast: Impression: In comparison to 05/07/22 examination, there is no significant change in extensive gas and fluid distent ion of small and large bowel loops. A left lower quadrant colostomy is in place and is decompressed. There is a stable moderate volume of ascites. Radiologist: Roger Grimes MD. Study ready at 00:59 and initial results trransmitted at 01:02 Code Status & VTE Plan Code Status full VTE Prophylaxis Plan VTE Prophylaxis will be ordered: Yes Supervising Physician Co-Signing Physician Notes Attending addendum: I have physically seen this patient, have supervised the medical residents activities, and agree with the H&P unless as otherwise noted. Assessment and Plan: SBO- Recurrent with repeat of previous symptoms associated with metastatic ovarian cancer NG tube to low intermittent suction N.p.o. IV fluids as noted, NSS + KCl 20 mEq at 100 mils per hour Acetaminophen 1 g IV every 8 hours. Mild pain or fever Toradol 10 mg IV every 6 hours as needed moderate pain Morphine sulfate 2 mg IV every 3 hours as needed severe pain Zofran 4 mg IV every 6 hours as needed Protonix 40 mg IV daily Remaining orders and notations as noted Resident Activity Tracking Resident Involvement: Resident Care Provided Care Provided: Adult Hospital Medicine
[2022-06-03] MEDS ORDERED: OPTIRAY 350 100ml IV ONE (00:35)
[2022-06-03] MEDS ORDERED: KETOROLAC TROMETHAMINE 15 MG/ML VIAL IV STA (00:59)
[2022-06-03] MEDS: NSS + 20MEQ KCL 20 MEQ/1,000 ML BAG IV SCH ×3 (02:10→21:49)
[2022-06-03] MEDS ORDERED: ACETAMINOPHEN 325 MG TAB PO PRN (03:13)
[2022-06-03 05:48] LABS: Basophils # (auto) 0.04 K/uL (0-0.2); Basophils % (auto) 0.2 %; Hemoglobin 8.7 g/dl (12.0-16.0); Immature Granulocytes # (auto) 0.07 K/uL (0.00-0.02); Immature Granulocytes % (auto) 0.4 %; Lymphocytes # (auto) 1.47 K/uL (1.2-3.4); Lymphocytes % (auto) 8.7 %; Mean Corpuscular Hemoglobin 34.3 pg (25.0-34.0); Mean Corpuscular Hgb Conc 32.2 g/dL (32.0-36.0); Mean Corpuscular Volume 106.3 fL (80.0-100.0); Mean Platelet Volume 9.3 fL (9.4-12.3); Monocytes # (auto) 0.98 K/uL (0.24-0.82); Monocytes % (auto) 5.8 %; Neutrophils # (auto) 14.25 K/uL (1.4-6.5); Neutrophils % (auto) 84.9 %; Platelet Count 330 K/uL (130-400); RDW Coefficient of Variation 16.9 % (11.5-14.5); RDW Standard Deviation 64.9 fL (36.4-46.3); Red Blood Count 2.54 M/uL (3.93-5.22); White Blood Count 16.81 K/ul (4.8-10.8)
[2022-06-03 06:27] LABS: Albumin Globulin Ratio 1.6 (0.9-2); Albumin Level 3.5 gm/dl (3.4-5.0); BUN Creatinine Ratio 11.9 (10-20); Bilirubin,Total 0.3 mg/dl (0.2-1.0); Calcium 8.4 mg/dl (8.5-10.1); Creatinine Clr Calc Pharmacy 57.7 ml/min; Est GFR (African American) 114.7 ml/min; Globulin 2.2 gm/dl (2.5-4.0); Magnesium 2.2 mg/dl (1.7-2.4); Potassium 3.4 mmol/L (3.5-5.1); Total Protein 5.7 gm/dl (6.0-8.3)
--- NOTE | 2022-06-03 07:54 | CT Scan Report ---
ABDOMEN AND PELVIS CT WITH IV CONTRAST CT DOSE: 246.64 mGy.cm HISTORY: Severe generalized abdominal pain. TECHNIQUE: Multiaxial CT images of the abdomen and pelvis were performed following the use of intrave nous contrast. A dose lowering technique was utilized adhering to the principles of ALARA. COMPARISON STUDY: Abdomen and pelvis CT 05/07/2022. FINDINGS: No acute process of the imaged lower chest. No pneumatosis or pneumoperitoneum. The spleen is enlarged measuring up to 15.4 cm in length. Unremarkable pancreas and adrenal glands. Distended ga llbladder. Unremarkable liver. There is patency of the hepatic and portal veins. Unremarkable kidneys. There is no hydronephrosis. Unremarkable urinary bladder. Aorta and IVC appear unremarkable. There is no lymphadenopathy identified. Gaseous distention of the distal esophagus, sto mach, proximal and mid small bowel is redemonstrated and appears similar to the most recent compariso n study. Partial bowel resection with left lower quadrant colostomy again noted. Dilated small bowel within the midabdomen measures up to approximately 5 cm, also unchanged. Several loops of small bowel demonstrate mild wall thickening. There is no clear transition point identified. 8 mm peritoneal sof t tissue nodule within the abdominal left lower quadrant is stable and image 291. Small to moderate a scites with mild peritoneal thickening and enhancement. Surgically absent uterus. Unremarkable soft tissues. There is no acute fracture. IMPRESSION: 1. Prior partial bowel resection with left lower quadrant colostomy. 2. Marked gaseous distention of the distal esophagus, stomach and proximal to mid small bowel is rede monstrated and appears similar to the prior studies. A partial small bowel obstruction is favored. Fo llow-up recommended. 3. Ascites with peritoneal carcinomatosis appears stable. 4. Splenomegaly. 5. Additional findings as above. ACT 112: Negative or not required by law. Electronically signed by: William Jaimes M.D. 06/03/2022 7:51 AM
--- NOTE | 2022-06-03 08:11 | Hospitalist Progress Note ---
Date of Service June 03, 2022 Assessment & Plan (1) SBO (small bowel obstruction): Plan: 57 y/o F w/ PMHx of ovarian cancer and recurrent SBO who presents w/ abdominal pressure and bloating since 06/01. KUB and CT abdomen suggests SBO. - NG tube low intermittent suction, NPO, maintenance fluids - defer GI and surgical consults at this time - mild leukocytosis 16s noted; most likely reactive secondary to chemotherapy yesterday. no infectious symptoms - prn IV toradol for pain - nausea control w/ prn Zofran and Compazine (2) Sinus tachycardia: Plan: - ecg reviewed. qtc 462. sinus tach 104. (3) GERD (gastroesophageal reflux disease): Plan: - IV protonix while npo (4) Anxiety and depression: Plan: - will try to put NGT to gravity this evening so that she is able to take sertraline (5) Asthma: Plan: - stable, continue home regimen (6) Hypothyroidism: Plan: - continue home levothyroxine (7) Colostomy present: Plan: - routine care as needed (8) Migraine: Plan: - continue home topiramate (9) Ascites: Plan: - per CT abd. stable moderate ascites. per prior CT abd's, likely 2/2 peritoneal carcinomatosis Plan NPO. NSS+kcl 100mL/hr. avoid use of chemoport while inpatient SCDs full code med surg, will request private room Admission and Anticipated Discharge Date Admission Date: June 03, 2022 Supervising Physician Co-Signing Physician Notes I personally examined the patient and verified all francis points of history and exam, discussed case, and agree with decision making with Dr Jennings with NG feeling a bit better. discussed ?SBFT after SBO improved - but will want to discuss w oncology so as not to order a test without a plan of action SBO - NGT, supportive care, pain control, time Subjective 57 year old female with a past medical history of ovarian cancer and recurrent SBO presents with abdominal bloating/pressure; imaging indicative of SBO. NGT placed in ED. PT states that she is feeling much better since placement on NGT. Improvement in abdominal bloating/pressure. Denies nausea/vomiting, abdominal pain. Review of Systems Review of Systems: As per HPI Physical Exam Physical Exam: Constitutional: well-appearing, no acute distress HEENT: NCAT, no conjunctival injection, NG tube in place CV: regular rhythm, no murmur appreciated, extremities well-perfused, no LE edema Resp: CTABL, no wheezes/rales/rhonchi appreciated, no increased work of breathing GI: soft, nondistended, nontender, BS normoactive, colostomy present without any fluid in bag MSK: no gross deformities appreciated Skin: warm, dry, no rash appreciated Neuro: alert, oriented, no focal neurologic deficit appreciated Results & Data Results & Data ([facility]) Vital Signs (Past 12 Hours) Vital Signs Temp Pulse Pulse Resp BP BP BP 06/03/22 03:30 06/03/22 03:30 36.5 C 80 16 123/77 06/03/22 03:05 36.5 C 80 16 123/77 06/03/22 01:00 97 H 20 152/72 H 06/02/22 20:17 36.5 C 122 H 18 142/93 H Pulse Ox O2 Del Method 06/03/22 03:30 Room Air 06/03/22 03:30 98 Room Air 06/03/22 03:05 98 Room Air 06/03/22 01:00 95 Room Air 06/02/22 20:17 96 Room Air Resident Activity Tracking Resident Involvement: Resident Care Provided Care Provided: Adult Hospital Medicine
--- NOTE | 2022-06-03 08:28 | Electrocardiogram Report ---
Test Reason : Blood Pressure : / mmHG Vent. Rate : 104 BPM Atrial Rate : 104 BPM P-R Int : 136 ms QRS Dur : 072 ms QT Int : 352 ms P-R-T Axes : 075 -26 071 degrees QTc Int : 462 ms Poor data quality, interpretation may be adversely affected Sinus tachycardia Otherwise normal ECG When compared with ECG of 08-MAY-2022 05:23, Vent. rate has increased BY 34 BPM Otherwise no significant change Confirmed by Kosta Lebron ([id number]) on 06/03/2022 8:28:19 AM Referred By: REFERRED SELF Confirmed By:Kosta Lebron
--- NOTE | 2022-06-03 08:43 | XRay Report ---
KUB HISTORY: NG tube placement COMPARISON: Abdomen and pelvis CT 06/03/2022. FINDINGS: Distended stomach and proximal to mid small bowel again noted. There is contrast within the urinary system from the recent CT examination. Nasogastric tube terminates in the stomach. No renal calculi. No ureteral calculi. No pneumoperitoneum or pneumatosis. IMPRESSION: Nasogastric tube terminates in the stomach. Partial small bowel obstruction pattern, unchanged. ACT 112: Negative or not required by law. Electronically signed by: William Jaimes M.D. 06/03/2022 8:41 AM
[2022-06-03] MEDS: PANTOprazole 40 MG in SYRINGE 0 ML IV SCH (10:05)
[2022-06-03] MEDS: ENOXAPARIN INJ 30 MG/0.3 ML SYR SQ SCH (10:05)
[2022-06-03] MEDS: KETOROLAC 30 MG/ML VIAL IV PRN ×3 (12:42→19:18)
[2022-06-03] MEDS: LORazepam 0.5 MG in SYRINGE 0 ML IV PRN (19:27)
--- NOTE | 2022-06-03 19:46 | Billing Data ---
Date of Service June 03, 2022 Coding Level of Care Code 35164 Initial Inpt Care Lvl 3
[2022-06-03] MEDS: SERTRALINE HCL 100 MG TABLET PO SCH (20:53)
[2022-06-03] MEDS: TOPIRAMATE 100 MG TAB PO SCH (22:05)
[2022-06-03] MEDS: MONTELUKAST SODIUM 10 MG TABLET PO SCH (22:05)
[2022-06-03] MEDS ORDERED: ACETAMINOPHEN 10MG/ML Custom 1,000 MG in EMPTY BAG 0 ML IV PRN (22:18)
[2022-06-03] MEDS ORDERED: LORazepam 0.5 MG in SYRINGE 0 ML IV STA (22:32)
[2022-06-03] MEDS ORDERED: HYDROmorphone INJ 0.5 MG/0.5 ML SYR IV STA (22:37)
[2022-06-03] MEDS ORDERED: HYDROmorphone INJ 0.5 MG/0.5 ML SYR ONE (22:45)
[2022-06-03] MEDS ORDERED: ACETAMINOPHEN 1,000 MG/100 ML VIAL IV PRN (22:48)
[2022-06-04] MEDS: NSS + 20MEQ KCL 20 MEQ/1,000 ML BAG IV SCH (06:38)
[2022-06-04] MEDS: KETOROLAC 30 MG/ML VIAL IV PRN ×3 (06:38→19:26)
[2022-06-04] MEDS: ONDANSETRON INJ 2 MG/ML 2 ML VIAL IV PRN ×2 (06:38→16:27)
[2022-06-04 06:48] LABS: Hematocrit (blood only) 30.4 % (34.1-44.9); Hemoglobin 9.4 g/dl (12.0-16.0); Mean Corpuscular Hemoglobin 34.8 pg (25.0-34.0); Mean Corpuscular Hgb Conc 30.9 g/dL (32.0-36.0); Mean Corpuscular Volume 112.6 fL (80.0-100.0); Mean Platelet Volume 9.5 fL (9.4-12.3); Platelet Count 277 K/uL (130-400); RDW Coefficient of Variation 16.8 % (11.5-14.5); RDW Standard Deviation 69.4 fL (36.4-46.3); White Blood Count 36.53 K/ul (4.8-10.8)
[2022-06-04 06:51] LABS: Albumin Globulin Ratio 1.5 (0.9-2); Albumin Level 3.2 gm/dl (3.4-5.0); Bilirubin,Total 0.4 mg/dl (0.2-1.0); Calcium 7.9 mg/dl (8.5-10.1); Creatinine Clr Calc Pharmacy 77.3 ml/min; Est GFR (African American) 126.3 ml/min; Globulin 2.1 gm/dl (2.5-4.0); Magnesium 1.8 mg/dl (1.7-2.4); Potassium 3.7 mmol/L (3.5-5.1); Total Protein 5.3 gm/dl (6.0-8.3)
[2022-06-04 06:55] LABS: Basophils # (auto) 0.11 K/uL (0-0.2); Basophils % (auto) 0.3 %; Immature Granulocytes # (auto) 0.92 K/uL (0.00-0.02); Immature Granulocytes % (auto) 2.5 %; Lymphocytes # (auto) 1.17 K/uL (1.2-3.4); Lymphocytes % (auto) 3.2 %; Monocytes # (auto) 1.07 K/uL (0.24-0.82); Monocytes % (auto) 2.9 %; Neutrophils # (auto) 33.26 K/uL (1.4-6.5); Neutrophils % (auto) 91.1 %; RBC Morphology Unremarkable
--- NOTE | 2022-06-04 07:17 | Hospitalist Progress Note ---
Date of Service June 04, 2022 Assessment & Plan (1) SBO (small bowel obstruction): Plan: 57 y/o F w/ PMHx of ovarian cancer and recurrent SBO who presents w/ abdominal pressure and bloating since 06/01. KUB and CT abdomen suggests SBO. Cause secondary to adhesions vs metastatic ovarian cancer. - NG tube low intermittent suction, NPO, maintenance fluids - defer GI and surgical consults at this time - prn IV toradol for pain - nausea control w/ prn Zofran and Compazine - would consider reaching out to oncologist at [facility] to see if they would consider any sort of surgical intervention for recurrent SBO, hesitant to get any new imaging to help distinguish cause of recurrent SBO prior to discussing case with them (2) Leukocytosis: Plan: - Leukocytosis to 36.53, has had similar reaction with Neulasta in the past, but given weakened immune system infection still on differential - Asymptomatic, vital signs stable, afebrile, CPR=1, negative procal, lactate- 0.7, blood cultures pending (3) Hypoglycemia: Plan: - Hypoglycemic this morning secondary to being NPO with limited ability to compensate due to low BMI - Changed fluids to D5w + 1/2 NSS + 20meq KCl in 1000mL at 100ml/hr (4) Sinus tachycardia: Plan: - ecg reviewed. qtc 462. sinus tach 104. - improved (5) GERD (gastroesophageal reflux disease): Plan: - IV protonix while npo (6) Anxiety and depression: Plan: - will try to put NGT to gravity this evening so that she is able to take sertraline (7) Asthma: Plan: - stable, continue home regimen (8) Hypothyroidism: Plan: - continue home levothyroxine (9) Colostomy present: Plan: - routine care as needed (10) Migraine: Plan: - continue home topiramate (11) Ascites: Plan: - per CT abd. stable moderate ascites. per prior CT abd's, likely 2/2 peritoneal carcinomatosis Plan NPO. NSS+kcl 100mL/hr. avoid use of chemoport while inpatient SCDs full code med surg, will request private room Admission and Anticipated Discharge Date Admission Date: June 03, 2022 Supervising Physician Co-Signing Physician Notes I personally examined the patient and verified all francis points of history and exam, discussed case, and agree with decision making with Dr Jennings Stomach feeling better, some flatus in her ostomy bag, but really feeling a lot of discomfort and distress from NG tube. Moderate amount of output. Vitals noted, in general she is awake and alert pleasant no distress. HEENT normocephalic atraumatic mucous membranes moist. Breathing unlabored no accessory muscle use good effort. Abdomen is soft nondistended nontender no guarding rebound or rigidity SBO -seems to be improvinggiven how much the NG tube is bothering her, will stop suction and if over the next 6 hours or so she has no worsening of symptoms we will DC. Still seems too soon to start a clear liquid diet. While NG is in we will try viscous lidocaine and Chloraseptic to help minimize discomfort. -Given that her small bowel obstructions seem to be happening more frequently and with very little time in betweendiscussed that it might be of benefit to get a small bowel follow-through study after the obstruction has resolved. At the same time, we discussed that this might only yield information without a workable planand therefore we would like to reach out to her oncology team. She noted that Dr. Vern Jacobs with [facility] would be the right person to reach out to, phone #[phone], fax number [phone] therefore, as her bowel obstruction improves, would recommend reaching out to Dr. Jacobs to discuss if small bowel follow-through, or CT with p.o. contrastwhen she is at a baseline state of healthwould yield any workable information for her care Subjective 57 year old female with a past medical history of ovarian cancer and recurrent SBO presents with abdominal bloating/pressure; imaging indicative of SBO. NGT placed in ED. She continues to feel better, has had good symptomatic improvement since insertion of NGT. NGT has been irrating her throat. Denies nausea, abdominal pain/fullness. No fever, chills, dyspnea, urinary symptoms. Review of Systems Review of Systems: As per HPI Physical Exam Physical Exam: Constitutional: well-appearing, no acute distress HEENT: NCAT, no conjunctival injection, NG tube in place CV: regular rhythm, no murmur appreciated, extremities well-perfused, no LE edema Resp: CTABL, no wheezes/rales/rhonchi appreciated, no increased work of breathing GI: soft, nondistended, nontender, BS normoactive, colostomy present without any fluid in bag MSK: no gross deformities appreciated, port site without erythema Skin: warm, dry, no rash appreciated Neuro: alert, oriented, no focal neurologic deficit appreciated Results & Data Results & Data ([facility]) Vital Signs (Past 12 Hours) Vital Signs Temp Pulse Pulse Resp BP BP Pulse Ox 06/04/22 06:53 37 C 91 H 16 113/68 97 06/03/22 20:15 06/03/22 21:22 36.9 C 83 16 113/72 100 O2 Del Method 06/04/22 06:53 Room Air 06/03/22 20:15 Room Air 06/03/22 21:22 Room Air Resident Activity Tracking Resident Involvement: Resident Care Provided Care Provided: Adult Hospital Medicine
[2022-06-04] MEDS ORDERED: DEXTROSE 50% 50 ML SYRINGE IV ONE (07:46)
[2022-06-04] MEDS: ENOXAPARIN INJ 30 MG/0.3 ML SYR SQ SCH ×3 (09:55→10:18)
[2022-06-04] MEDS ORDERED: CHLORASEPTIC 1.4% SOLN 180 ML BTL MT PRN (10:02)
[2022-06-04] MEDS: D5W AND 1/2NSS + 20MEQ KCL 20 MEQ/1,000 ML BAG IV SCH ×2 (12:06→20:27)
[2022-06-04] MEDS: PANTOprazole 40 MG in SYRINGE 0 ML IV SCH (12:07)
[2022-06-04] MEDS ORDERED: LIDOCAINE VISCOUS 2% 15 ML UDC PO ONE (12:15)
--- NOTE | 2022-06-04 15:33 | Billing Data ---
Date of Service June 04, 2022 Coding Level of Care Code 71743 Subseq Hosp Care Lvl 3
[2022-06-04] MEDS: LIDOCAINE VISCOUS 2% 15 ML UDC PO PRN (18:09)
[2022-06-04] MEDS: SERTRALINE HCL 100 MG TABLET PO SCH (20:27)
[2022-06-04] MEDS: LORazepam 0.5 MG in SYRINGE 0 ML IV PRN (20:49)
[2022-06-04] MEDS: PROCHLORPERAZINE 5 MG in SYRINGE 4 ML IV PRN (20:49)
[2022-06-04] MEDS: TOPIRAMATE 100 MG TAB PO SCH (21:36)
[2022-06-04] MEDS: MONTELUKAST SODIUM 10 MG TABLET PO SCH (21:36)
[2022-06-05] MEDS: LIDOCAINE VISCOUS 2% 15 ML UDC PO PRN ×2 (02:33→12:59)
[2022-06-05] MEDS: KETOROLAC 30 MG/ML VIAL IV PRN ×3 (02:33→14:13)
[2022-06-05] MEDS: D5W AND 1/2NSS + 20MEQ KCL 20 MEQ/1,000 ML BAG IV SCH (03:43)
[2022-06-05 06:47] LABS: Hematocrit (blood only) 28.5 % (34.1-44.9); Hemoglobin 9.1 g/dl (12.0-16.0); Mean Corpuscular Hemoglobin 35.5 pg (25.0-34.0); Mean Corpuscular Hgb Conc 31.9 g/dL (32.0-36.0); Mean Corpuscular Volume 111.3 fL (80.0-100.0); Mean Platelet Volume 9.1 fL (9.4-12.3); Platelet Count 244 K/uL (130-400); RDW Coefficient of Variation 16.3 % (11.5-14.5); RDW Standard Deviation 66.4 fL (36.4-46.3); Red Blood Count 2.56 M/uL (3.93-5.22); White Blood Count 54.89 K/ul (4.8-10.8)
[2022-06-05 06:54] LABS: Eosinophils % (manual) 2 %; Lymphocytes # (manual) 1.65 K/uL (1.2-3.4); Lymphocytes % (manual) 3 %; Macrocytosis Present; Monocytes # (manual) 1.65 K/uL (0.24-0.82); Monocytes % (manual) 3 %; Neutrophils % (manual) 92 %; Polychromasia 1+
[2022-06-05 06:55] LABS: Albumin Globulin Ratio 1.5 (0.9-2); Albumin Level 2.9 gm/dl (3.4-5.0); BUN Creatinine Ratio 13.3 (10-20); Bilirubin,Total 0.3 mg/dl (0.2-1.0); Calcium 8.1 mg/dl (8.5-10.1); Creatinine Clr Calc Pharmacy 85.9 ml/min; Est GFR (African American) 130.7 ml/min; Est GFR (Non-African American) 112.8 ml/min; Magnesium 1.6 mg/dl (1.7-2.4); Total Protein 4.9 gm/dl (6.0-8.3)
--- NOTE | 2022-06-05 07:26 | Hospitalist Progress Note ---
Date of Service June 05, 2022 Assessment & Plan (1) SBO (small bowel obstruction): Plan: 57 y/o F w/ PMHx of ovarian cancer and recurrent SBO who presents w/ abdominal pressure and bloating since 06/01. KUB and CT abdomen suggests SBO. Cause secondary to adhesions vs metastatic ovarian cancer. SBO - today NG tube low intermittent suction, NPO, maintenance fluids - defering GI and surgical consults at this time - KUB with resolving SBO. - plan to pull NG and advance to clear liquids - prn IV toradol for pain - nausea control w/ prn Zofran and Compazine - will reach out to oncologist at [facility] to see if they would consider any sort of surgical intervention for recurrent SBO, hesitant to get any new imaging to help distinguish cause of recurrent SBO prior to discussing case with them Leukocytosis - Leukocytosis to 54.89, has had similar reaction with Neulasta in the past, but given weakened immune system infection still on differential - Asymptomatic, vital signs stable, afebrile, CPR=1, negative procal, lactate- 0.7, blood cultures neg at 24 hrs Hypoglycemia - Hypoglycemic yesterday d/t being NPO with limited ability to compensate due to low BMI; fluids changed to D5w + 1/2 NSS + 20meq KCl in 1000mL at 100ml/hr - today, fluids adjusted to D5W NS Sinus tachycardia - EKG showed qtc 462. sinus tach 104. - improved, not present today GERD - IV protonix while npo Anxiety/depression - continue sertraline Asthma - stable, continue home regimen Hypothyroidism - continue home levothyroxine Colostomy - routine care as needed Migraine - continue home topiramate Ascites - per CT abd. stable moderate ascites. per prior CT abd's, likely 2/2 peritoneal carcinomatosis (2) Leukocytosis: (3) Hypoglycemia: (4) Sinus tachycardia: (5) GERD (gastroesophageal reflux disease): (6) Anxiety and depression: (7) Asthma: (8) Hypothyroidism: (9) Colostomy present: (10) Migraine: (11) Ascites: Plan Diet: plan to pull NG tube and advance to clear liquids Electrolytes: Mg repleted w/ 4 grams DVT ppx: SCDs Code: Full Dispo: med surg Admission and Anticipated Discharge Date Admission Date: June 03, 2022 Supervising Physician Co-Signing Physician Notes Resident Physician Supervision Note: I independently interviewed and examined the patient and verified the francis history and physical, reviewed labs and image studies and agree with resident findings and care plan. Subjective Pt is a 57 yo female with PMH of ovarian cancer and recurrent SBO who presents w/ abdominal pressure and bloating since 06/01. KUB and CT abdomen suggests SBO. Cause secondary to adhesions vs metastatic ovarian cancer. Today, pt is feeling better overall. She is still slightly nauseous but she is attributing this to her recent chemotherapy and less to her SBO. She is hoping that her NG tube can be removed because it is severely irritating her throat. Pt denies SOB, chest pain, and leg pain. Physical Exam Constitutional: NAD. Vitals WNL. Eyes: no conjunctival abnormality Respiratory: CTA bilaterally. No rhonchi, wheezing, or crackles. Non labored breathing. Cardiovascular: RRR. No murmur noted. No LL edema. Gastrointestinal (Abdomen): Nontender, +BS. No masses noted. Colostomy in LLQ non erythematous and nontender. Skin: no rashes, warm and dry Psychiatric: Alert. Mood and affect congruent. Results & Data Results & Data ([facility]) Vital Signs (Past 12 Hours) Vital Signs Temp Pulse Resp BP Pulse Ox O2 Del Method 06/05/22 07:18 36.9 C 83 14 114/70 99 Room Air 06/04/22 20:30 Room Air 06/04/22 22:24 36.9 C 77 16 111/67 98 Room Air Resident Activity Tracking Resident Involvement: Resident Care Provided Care Provided: Adult Hospital Medicine
[2022-06-05] MEDS: ONDANSETRON INJ 2 MG/ML 2 ML VIAL IV PRN ×3 (07:35→21:00)
[2022-06-05] MEDS: ENOXAPARIN INJ 30 MG/0.3 ML SYR SQ SCH (10:12)
[2022-06-05] MEDS: PANTOprazole 40 MG in SYRINGE 0 ML IV SCH (10:19)
[2022-06-05] MEDS: D5W AND NSS 1,000 ML IV SCH ×2 (10:19→20:59)
[2022-06-05] MEDS: MAGNESIUM SULFATE / D5W 1 GM/100 ML BAG IV SCH ×4 (10:19→16:13)
--- NOTE | 2022-06-05 11:35 | XRay Report ---
KUB CLINICAL HISTORY: assess sbo COMPARISON STUDY: CT of the abdomen and pelvis and KUB June 03, 2022. FINDINGS: Tip of nasogastric tube is within the gastric antrum. Surgical staple lines are incidentall y noted. Small bowel and gastric distention has resolved. IMPRESSION: Resolution of small bowel and gastric distention. The findings suggest an improving small bowel obstruction. ACT 112: Negative or not required by law. Electronically signed by: Jose Gottlieb M.D. 06/05/2022 11:34 AM
[2022-06-05] MEDS: LORazepam 0.25 MG in SYRINGE 0 ML IV PRN (17:35)
[2022-06-05] MEDS: TOPIRAMATE 100 MG TAB PO SCH (21:01)
[2022-06-05] MEDS: SERTRALINE HCL 100 MG TABLET PO SCH (21:02)
[2022-06-05] MEDS: MONTELUKAST SODIUM 10 MG TABLET PO SCH (21:02)
[2022-06-06] MEDS: KETOROLAC 30 MG/ML VIAL IV PRN ×3 (02:58→19:50)
[2022-06-06] MEDS: LORazepam 0.25 MG in SYRINGE 0 ML IV PRN ×2 (02:59→21:28)
[2022-06-06] MEDS: D5W AND NSS 1,000 ML IV SCH ×2 (07:24→17:35)
[2022-06-06 08:51] LABS: Hematocrit (blood only) 28.3 % (34.1-44.9); Hemoglobin 9.1 g/dl (12.0-16.0); Mean Corpuscular Hemoglobin 35.5 pg (25.0-34.0); Mean Corpuscular Hgb Conc 32.2 g/dL (32.0-36.0); Mean Corpuscular Volume 110.5 fL (80.0-100.0); Mean Platelet Volume 9.4 fL (9.4-12.3); Platelet Count 192 K/uL (130-400); RDW Standard Deviation 64.8 fL (36.4-46.3); Red Blood Count 2.56 M/uL (3.93-5.22)
[2022-06-06 09:06] LABS: Lymphocytes # (manual) 1.67 K/uL (1.2-3.4); Lymphocytes % (manual) 3 %; Macrocytosis Present; Monocytes # (manual) 1.11 K/uL (0.24-0.82); Monocytes % (manual) 2 %; Neutrophils # (manual) 53.28 K/uL (1.4-6.5); Neutrophils % (manual) 96 %; Poikilocytosis Present
[2022-06-06] MEDS: ONDANSETRON INJ 2 MG/ML 2 ML VIAL IV PRN ×2 (09:09→19:49)
[2022-06-06 09:14] LABS: BUN Creatinine Ratio 5.7 (10-20); Calcium 7.7 mg/dl (8.5-10.1); Creatinine Clr Calc Pharmacy 72.9 ml/min; Est GFR (African American) 123.9 ml/min; Est GFR (Non-African American) 106.9 ml/min; Potassium 3.5 mmol/L (3.5-5.1)
[2022-06-06] MEDS: ENOXAPARIN INJ 30 MG/0.3 ML SYR SQ SCH (09:25)
[2022-06-06] MEDS: PANTOprazole 40 MG in SYRINGE 0 ML IV SCH (10:36)
--- NOTE | 2022-06-06 10:39 | Hospitalist Progress Note ---
Date of Service June 06, 2022 Assessment & Plan (1) SBO (small bowel obstruction): Plan: 57 y/o F w/ PMHx of ovarian cancer and recurrent SBO who presents w/ abdominal pressure and bloating since 06/01. KUB and CT abdomen suggests SBO. Cause secondary to adhesions vs metastatic ovarian cancer. SBO - upon admission, NG tube low intermittent suction, NPO, maintenance fluids - KUB with resolving SBO; pulled NG 06/05, advancing diet as tolerated- currently at full liquids - prn IV toradol for pain - nausea control w/ prn Zofran and Compazine - call placed to oncologist at [facility] to discuss her case and determine if further imaging to look for specific causes of the recurrent SBO (and possible treatment)- awaiting call back Leukocytosis - Leukocytosis to 55.50, has had similar reaction with Neulasta in the past, but given weakened immune system infection still on differential - Asymptomatic, vital signs stable, afebrile, CRP=1.09, negative procal, lactate- 0.7, blood cultures neg at 24 hrs - WBC has seemed to have peaked and plateaued - will continue to monitor Hypoglycemia - Hypoglycemic 06/04 most likely d/t being NPO with limited ability to compensate due to low BMI; - IVF - D5NSS at 100ml/hr Sinus tachycardia - EKG showed qtc 462. sinus tach 104. - resolved GERD - switched iv protonix to oral Anxiety/depression - continue sertraline Asthma - stable, continue home regimen Hypothyroidism - continue home levothyroxine Colostomy - routine care as needed Migraine - continue home topiramate Ascites - per CT abd. stable moderate ascites. per prior CT abd's, likely 2/2 peritoneal carcinomatosis (2) Leukocytosis: (3) Hypoglycemia: (4) Sinus tachycardia: (5) GERD (gastroesophageal reflux disease): (6) Anxiety and depression: (7) Asthma: (8) Hypothyroidism: (9) Colostomy present: (10) Migraine: (11) Ascites: Plan Diet: full liquids w/ plan to advance to soft foods, minced and moist DVT ppx: SCDs Code: Full Dispo: med surg Admission and Anticipated Discharge Date Admission Date: June 03, 2022 Supervising Physician Co-Signing Physician Notes Resident Physician Supervision Note: I independently interviewed and examined the patient and verified the francis history and physical, reviewed labs and image studies and agree with resident findings and care plan. Subjective Pt is a 57 yo female with PMH of ovarian cancer and recurrent SBO who presents w/ abdominal pressure and bloating since 06/01. KUB and CT abdomen suggests SBO. Cause secondary to adhesions vs metastatic ovarian cancer. Today, pt symptomatically improving. She experienced some nausea last night after having a popsicle and clear fluids; however, this seemed to resolve overnight. Pt wants to advance diet slowly but does say that she is getting hungry. Good output from her colostomy overnight. Physical Exam Constitutional: NAD. Vitals WNL. Eyes: no conjunctival abnormality Respiratory: CTA bilaterally. No rhonchi, wheezing, or crackles. Non labored breathing. Cardiovascular: RRR. No murmur noted. No LL edema. Gastrointestinal (Abdomen): Nontender, +BS. No masses noted. Nonerythematous and non tender around colostomy bag. Psychiatric: Alert. Mood and affect congruent. Results & Data Results & Data ([facility]) Vital Signs (Past 12 Hours) Vital Signs Temp Pulse Resp BP Pulse Ox O2 Del Method 06/06/22 07:55 36.9 C 79 14 107/67 97 Room Air Resident Activity Tracking Resident Involvement: Resident Care Provided Care Provided: Adult Hospital Medicine
[2022-06-06] MEDS: PROCHLORPERAZINE 5 MG in SYRINGE 4 ML IV PRN (13:19)
[2022-06-06] MEDS: MONTELUKAST SODIUM 10 MG TABLET PO SCH (21:26)
[2022-06-06] MEDS: TOPIRAMATE 100 MG TAB PO SCH (21:26)
[2022-06-06] MEDS: SERTRALINE HCL 100 MG TABLET PO SCH (21:27)
[2022-06-07] MEDS: D5W AND NSS 1,000 ML IV SCH (03:29)
--- NOTE | 2022-06-07 07:38 | Hospitalist Progress Note ---
Date of Service June 07, 2022 Assessment & Plan (1) SBO (small bowel obstruction): Plan: 57 y/o F w/ PMHx of ovarian cancer and recurrent SBO who presents w/ abdominal pressure and bloating since 06/01. KUB and CT abdomen suggests SBO. Cause secondary to adhesions vs metastatic ovarian cancer. SBO - upon admission, NG tube low intermittent suction, NPO, maintenance fluids - KUB with resolving SBO; pulled NG 06/05, advancing diet as tolerated- currently at regular diet, minced and moist texture - prn IV toradol for pain - nausea control w/ prn Zofran and Compazine - call placed to oncologist at [facility] to discuss her case and determine if further imaging to look for specific causes of the recurrent SBO (and possible treatment) - spoke with nurse at [facility]; pt has a f/u with them in a few weeks for further staging scans - awaiting call back from physician - plan to d/c tomorrow after pt tolerates diet for 24 hours Leukocytosis - Leukocytosis peaked at 55.50, has had similar reaction with Neulasta in the past - Asymptomatic, vital signs stable, afebrile, CRP=1.09, negative procal, lactate- 0.7, blood cultures neg at 48 hrs - WBC today downtrending at 29.85 - continue to monitor Hypokalemia - K 3.3 today - given KCl 40 meq PO - recheck tomorrow AM GERD - protonix Anxiety/depression - continue sertraline Asthma - stable, continue home regimen Hypothyroidism - continue home levothyroxine Colostomy - routine care as needed Migraine - continue home topiramate Ascites - per CT abd. stable moderate ascites. per prior CT abd's, likely 2/2 peritoneal carcinomatosis (2) Leukocytosis: (3) Hypoglycemia: (4) Sinus tachycardia: (5) GERD (gastroesophageal reflux disease): (6) Anxiety and depression: (7) Asthma: (8) Hypothyroidism: (9) Colostomy present: (10) Migraine: (11) Ascites: (12) Hypokalemia: Plan Diet: Regular diet, minced and moist texture DVT ppx: SCDs Code: Full Dispo: med surg Admission and Anticipated Discharge Date Admission Date: June 03, 2022 Supervising Physician Co-Signing Physician Notes Resident Physician Supervision Note: I independently interviewed and examined the patient and verified the francis history and physical, reviewed labs and image studies and agree with resident findings and care plan. Subjective Pt is a 57 yo female with PMH of ovarian cancer and recurrent SBO who presents w/ abdominal pressure and bloating since 06/01. KUB and CT abdomen suggests SBO. Cause secondary to adhesions vs metastatic ovarian cancer. Pt continues to improve. She had some mashed potatoes and boost for dinner last night. No nausea that is abnormal for her and no vomiting. She has noticed increasing output in her colostomy bag. She requested that we keep her fluids on overnight as she did not feel that she could adequately hydrate herself through oral intake. However, this morning she feels that her intake has improved and discontinuation of fluids is reasonable. Pt tolerating diet well. Pt also states that she feels her feet are swollen. Physical Exam Constitutional: NAD. Vitals WNL. Eyes: no conjunctival abnormality Respiratory: CTA bilaterally. No rhonchi, wheezing, or crackles. Non labored breathing. Cardiovascular: RRR. No murmur noted. No LL edema. Gastrointestinal (Abdomen): Nontender, +BS. No masses noted. Colostomy bag intake w/o erythema or pain. Skin: no rashes, warm and dry Psychiatric: Alert. Mood and affect congruent. Results & Data Results & Data ([facility]) Vital Signs (Past 12 Hours) Vital Signs Temp Pulse Resp BP Pulse Ox O2 Del Method 06/06/22 21:05 37 C 79 16 115/72 98 Room Air Resident Activity Tracking Resident Involvement: Resident Care Provided Care Provided: Adult [facility] Medicine
[2022-06-07] MEDS: KETOROLAC 30 MG/ML VIAL IV PRN (08:55)
[2022-06-07] MEDS: PANTOprazole 40 MG TAB PO SCH (08:56)
[2022-06-07 08:57] LABS: BUN Creatinine Ratio 7.8 (10-20); Calcium 7.6 mg/dl (8.5-10.1); Creatinine Clr Calc Pharmacy 75.8 ml/min; Est GFR (African American) 125.5 ml/min; Est GFR (Non-African American) 108.3 ml/min; Potassium 3.3 mmol/L (3.5-5.1)
[2022-06-07 08:59] LABS: Hematocrit (blood only) 28.4 % (34.1-44.9); Hemoglobin 8.8 g/dl (12.0-16.0); Mean Corpuscular Hemoglobin 34.4 pg (25.0-34.0); Mean Corpuscular Volume 110.9 fL (80.0-100.0); Mean Platelet Volume 10.1 fL (9.4-12.3); Platelet Count 162 K/uL (130-400); RDW Coefficient of Variation 15.8 % (11.5-14.5); RDW Standard Deviation 64.4 fL (36.4-46.3); Red Blood Count 2.56 M/uL (3.93-5.22); White Blood Count 29.85 K/ul (4.8-10.8)
[2022-06-07] MEDS ORDERED: POTASSIUM CHLORIDE CRTAB 20 MEQ TABCR PO ONE (09:17)
[2022-06-07] MEDS: ENOXAPARIN INJ 30 MG/0.3 ML SYR SQ SCH (10:49)
[2022-06-07] MEDS: ONDANSETRON INJ 2 MG/ML 2 ML VIAL IV PRN (10:52)
[2022-06-07] MEDS: KETOROLAC TROMETHAMINE 15 MG/ML VIAL IV PRN ×2 (15:43→22:30)
[2022-06-07] MEDS: LIDOCAINE VISCOUS 2% 15 ML UDC PO PRN (18:44)
[2022-06-07] MEDS: SERTRALINE HCL 100 MG TABLET PO SCH (20:32)
[2022-06-07] MEDS: MONTELUKAST SODIUM 10 MG TABLET PO SCH (20:33)
[2022-06-07] MEDS: TOPIRAMATE 100 MG TAB PO SCH (20:33)
[2022-06-07] MEDS: LORazepam 0.25 MG in SYRINGE 0 ML IV PRN (22:30)
[2022-06-08 07:57] LABS: Hematocrit (blood only) 27.3 % (34.1-44.9); Hemoglobin 8.6 g/dl (12.0-16.0); Mean Corpuscular Hemoglobin 34.4 pg (25.0-34.0); Mean Corpuscular Hgb Conc 31.5 g/dL (32.0-36.0); Mean Corpuscular Volume 109.2 fL (80.0-100.0); Mean Platelet Volume 10.1 fL (9.4-12.3); Platelet Count 118 K/uL (130-400); RDW Coefficient of Variation 15.2 % (11.5-14.5); RDW Standard Deviation 61.5 fL (36.4-46.3); White Blood Count 9.06 K/ul (4.8-10.8)
[2022-06-08] MEDS: ENOXAPARIN INJ 30 MG/0.3 ML SYR SQ SCH (08:07)
[2022-06-08] MEDS: PANTOprazole 40 MG TAB PO SCH (08:07)
[2022-06-08] MEDS: KETOROLAC TROMETHAMINE 15 MG/ML VIAL IV PRN (08:08)
[2022-06-08 08:26] LABS: Calcium 7.9 mg/dl (8.5-10.1); Creatinine Clr Calc Pharmacy 77.3 ml/min; Est GFR (African American) 126.3 ml/min; Potassium 3.7 mmol/L (3.5-5.1)
--- NOTE | 2022-06-08 10:12 | Discharge Summary ---
Date of Service June 08, 2022 Admission HPI Per Admitting Provider 57 y/o F w/ PMHx of ovarian cancer and recurrent SBO who presents w/ abdominal pressure and bloating since 06/01. She has been following clear liquid diet for a day w/o relief. Ostomy output had been normal w/ exception of liquid only today. She had chemo infusion this morning. Neulasta timed to start in 24 hours. She denies fever/chills, cough, dysuria. After had last hospitalization, she had been doing slightly better, regaining some strength and eating slightly more. She has not had emesis. at bedside. ED course: Dilaudid 1mg. IV toradol. mild tachycardia up to 120s at arrival. wbc 12.98. Hb stable at 11.3. mild thrombocytosis 526. K 3.3. CT abd and kub suggestive of partial sbo. Admission Exam Per Admitting Provider General: Grossly A&O. NAD. Cooperative. HEENT: Atraumatic, normocephalic. EOMI Pulm: CTAB. -wheezes, -rales, -rhonchi. No respiratory distress. Cardiac: RRR, -mrg. Abdominal: Nontender to light palpation, nondistended, soft. bowel sounds audible, slightly sparse. Integ: No erythema of chemoport or ostomy. Msk: Moving all extrem. Principal Diagnosis recurrent small bowel obstruction Discharge Exam Constitutional NAD. Vitals WNL. Respiratory CTA bilaterally. No rhonchi, wheezing, and crackles. Non labored breathing. Cardiovascular RRR. No murmurs noted. No LE edema. Gastrointestinal (Abdomen) +BS, non tender upon palpation. Colostomy bag w/o erythema or tenderness. No masses noted. Psychiatric Alert. Mood and affect congruent. Discharge Data Allergies Allergy/AdvReac Type Severity Reaction Status Date / Time doxycycline Allergy Intermediate RASH Verified 06/02/22 23:09 gluten AdvReac Intermediate Abdominal Verified 06/02/22 23:09 Pain lactose AdvReac Intermediate Abdominal Verified 06/02/22 23:09 Pain Penicillins AdvReac Intermediate Nausea, Verified 06/02/22 23:09 diarrhea Consultations 06/02/22 23:28 ED Decision to Admit Stat Ordered Studies KUB X-Ray 06/02/22 20:33 XR KUB/Abdomen 1 view CLINICAL HISTORY: ?obstruction TECHNIQUE: 1 view of the abdomen was obtained. Comparison: Comparison is made to radiograph 05/15/2022 FINDINGS: Lung bases are unremarkable. The osseous structures are grossly unremarkable. There is prominent dilation of the stomach and duodenum, with loops measuring up to 15 mm in diameter. The colon is nondistended. IMPRESSION: Findings compatible with small bowel obstruction with multiple loops of gas distended bowel and under distended colon. ACT 112: Negative or not required by law. Electronically signed by: Jeff Jordan M.D. 06/02/2022 10:25 PM Abdomen/Pelvis CT 06/02/22 22:[address] WITH IV CONTRAST CT DOSE: 246.64 mGy.cm HISTORY: Severe generalized abdominal pain. TECHNIQUE: Multiaxial CT images of the abdomen and pelvis were performed following the use of intravenous contrast. A dose lowering technique was utilized adhering to the principles of ALARA. COMPARISON STUDY: Abdomen and pelvis CT 05/07/2022. FINDINGS: No acute process of the imaged lower chest. No pneumatosis or pneumoperitoneum. The spleen is enlarged measuring up to 15.4 cm in length. Unremarkable pancreas and adrenal glands. Distended gallbladder. Unremarkable liver. There is patency of the hepatic and portal veins. Unremarkable kidneys. There is no hydronephrosis. Unremarkable urinary bladder. Aorta and IVC appear unremarkable. There is no lymphadenopathy identified. Gaseous distention of the distal esophagus, stomach, proximal and mid small bowel is redemonstrated and appears similar to the most recent comparison study. Partial bowel resection with left lower quadrant colostomy again noted. Dilated small bowel within the midabdomen measures up to approximately 5 cm, also unchanged. Several loops of small bowel demonstrate mild wall thickening. There is no clear transition point identified. 8 mm peritoneal soft tissue nodule within the abdominal left lower quadrant is stable and image 291. Small to moderate ascites with mild peritoneal thickening and enhancement. Surgically absent uterus. Unremarkable soft tissues. There is no acute fracture. IMPRESSION: 1. Prior partial bowel resection with left lower quadrant colostomy. 2. Marked gaseous distention of the distal esophagus, stomach and proximal to mid small bowel is redemonstrated and appears similar to the prior studies. A partial small bowel obstruction is favored. Follow-up recommended. 3. Ascites with peritoneal carcinomatosis appears stable. 4. Splenomegaly. 5. Additional findings as above. ACT 112: Negative or not required by law. Electronically signed by: William Jaimes M.D. 06/03/2022 7:51 AM KUB X-Ray 06/03/22 01:44 KUB HISTORY: NG tube placement COMPARISON: Abdomen and pelvis CT 06/03/2022. FINDINGS: Distended stomach and proximal to mid small bowel again noted. There is contrast within the urinary system from the recent CT examination. N asogastric tube terminates in the stomach. No renal calculi. No ureteral calculi. No pneumoperitoneum or pneumatosis. IMPRESSION: Nasogastric tube terminates in the stomach. Partial small bowel obstruction pattern, unchanged. ACT 112: Negative or not required by law. Electronically signed by: William Jaimes M.D. 06/03/2022 8:41 AM KUB X-Ray 06/05/22 10:49 KUB CLINICAL HISTORY: assess sbo COMPARISON STUDY: CT of the abdomen and pelvis and KUB June 03, 2022. FINDINGS: Tip of nasogastric tube is within the gastric antrum. Surgical staple lines are incidentally noted. Small bowel and gastric distention has resolved. IMPRESSION: Resolution of small bowel and gastric distention. The findings suggest an improving small bowel obstruction. ACT 112: Negative or not required by law. Electronically signed by: Jose Gottlieb M.D. 06/05/2022 11:34 AM Hospital Course (1) SBO (small bowel obstruction): 57 y/o F w/ PMHx of ovarian cancer and recurrent SBO who presents w/ abdominal pressure and bloating since 06/01. KUB and CT abdomen suggests SBO. Cause secondary to adhesions vs metastatic ovarian cancer. SBO - upon admission, NG tube low intermittent suction, NPO, maintenance fluids - KUB on 06/05 showed resolving SBO; pulled NG 06/05, - Diet advanced. Tolerated regular diet, minced and moist texture - call placed to oncologist at [facility] considering recurrent ileus in setting of metastatic ovarian ca. - spoke with nurse at [facility]; pt has a f/u with them in a few weeks for further staging scans Ascites - per CT abd. stable moderate ascites. per prior CT abd's, likely 2/2 peritoneal carcinomatosis GERD - protonix Anxiety/depression - continue sertraline Asthma - continue home regimen Hypothyroidism - continue home levothyroxine Colostomy - routine care as needed Migraine - continue home topiramate (2) Leukocytosis: (3) Hypoglycemia: (4) Sinus tachycardia: (5) GERD (gastroesophageal reflux disease): (6) Anxiety and depression: (7) Asthma: (8) Hypothyroidism: (9) Colostomy present: (10) Migraine: (11) Ascites: (12) Hypokalemia: Plan Diet: Low fiber diet DVT ppx: SCDs while hospitalized Code: Full Dispo: home Total Time Total Time Spent Total Time Spent (In Minutes): as per attending attestation Discharge Plan Discharge Items Patient Disposition: Home - Self-Care Reason For Visit: SBO Discharge Diagnosis: recurrent SBO Activity: Per Instructions section Non-emergency contact: Primary Care Provider and Oncologist Call non-emergency contact if: you have any medication questions and your sympto ms worsen Follow-up/Referrals: Misbah Mast DO [Primary Care Provider] - 06/19/22 11:00 am Diet: Low Fiber Addtl Attending Provider Instructions: You were admitted to the hospital for a small bowel obstruction. You were treated with IV fluids, a nasogastric tube, and nausea medication. Your diet was advanced until you were able to tolerate a low fiber diet with adequate output in your colostomy bag. A discharge summary will be sent to your primary care physician to ensure continuity of care. Please bring this discharge summary with you to your next office appointment so that your provider can review it at that time. Medications: Your medication list has been reviewed and reconciled upon discharge to ensure accuracy and continuity of care. An updated list of all your medications is included with your hospital discharge paperwork. Please review this list closely and make note of any changes to your medications. - Lidocaine was sent to the pharmacy for you to use for your throat pain. This can be used up to four times per day as needed. - Resume your medications as before hospitalization. Follow up appointments: - Make a follow up appointment with your PCP within the next week. It is very important that you follow up with them shortly after discharge from the hospital. - Keep all of your follow up appointments as already scheduled. If you cannot make an appointment, notify your provider. - Your oncologist was contacted during your admission to discuss further management of your recurrent bowel obstructions. You will be contacted with information from your oncologist once he reaches back out. CONTACT YOUR PRIMARY CARE PROVIDER if you experience any of the following: - Difficulty following your treatment plan - Difficulty taking any of your medications CALL 911 OR GO TO THE EMERGENCY DEPARTMENT if you experience any of the following: - Increased nausea and vomiting - Decreased output in your colostomy bag - Sudden, severe abdominal pain or nausea/vomiting - Severe chest pain or chest pain that radiates to your jaw or arm - Sudden, severe shortness of breath or difficulty breathing Pending Studies at Discharge: No Stand-Alone Forms: My [facility], Smoking Cessation Medications and DC Order Prescriptions: New lidocaine HCl [Lidocaine Viscous] 2 % solution 8.75 ml mucous membrane QID 14 Days Qty: 700 1RF Rx Instructions: Gargle and swallow as needed for throat pain Continued lorazepam 0.5 mg tablet 0.5 mg PO BID PRN (Reason: anxiety) Qty: 30 0RF ondansetron 8 mg tablet,disintegrating 8 mg PO Q8H 30 Days Qty: 90 2RF pantoprazole [Protonix] [address] for susp in packet 40 mg PO BID 30 Days Qty: 30 3RF cholecalciferol (vitamin D3) 50 mcg (2,000 unit) capsule 50 mcg PO QAM fluticasone propionate [Flonase Allergy Relief] 50 mcg/actuation spray,suspension 1 spray intranasal BID Rx Instructions: administer into each nostril fexofenadine [Liana Allergy] 180 mg tablet 180 mg PO HS topiramate [Topamax] 100 mg tablet 100 mg PO QPM polyethylene glycol 3350 [Miralax] 17 gram/dose powder 17 g PO DAILY senna 8.6 mg capsule 8.6 mg PO DAILY [id number] Capsule 1 cap PO DAILY PRN (Reason: MIGRAINES) Rx Instructions: MIDRIN acetaminophen [Tylenol] 325 mg tablet 325 mg PO QID PRN (Reason: Pain) nystatin 100,000 unit/gram powder 1 applic topical .COMPLEX Qty: 60 0RF Rx Instructions: 1 applic topically with ostomy changes; sertraline 100 mg tablet 200 mg PO QPM montelukast 10 mg tablet 10 mg PO QPM prochlorperazine maleate [Compazine] 5 mg Tablet 5 mg PO BID PRN (Reason: Nausea) Qvar RediHaler 40 mcg/actuation Hfa Aerosol Breath Activated 1 inh INHALATION QAM Ajovy Autoinjector 225 mg/1.5 mL Auto-Injector 225 mg SUBCUT MONTHLY Rx Instructions: RECIEVES 1 X MONTHLY famotidine 20 mg tablet 20 mg PO QAM dapsone 25 mg tablet 25 mg PO BID levothyroxine 25 mcg Tablet 25 mcg PO DAILY oxycodone-acetaminophen 5-325 mg tablet 1 tab PO Q4 PRN (Reason: Pain) Discharge Orders: Discharge Order (Routine); Ordered 06/08/22 Ordered By: Yaa Griggs Admission Data Admit Date/Time: 06/03/22 01:26 Attending Provider: Charu Delacruz Admit Provider: Tunde Prabhakar Primary Care Provider: Misbah Mast Other Providers: Gelacio Chopra ; Dg Amaya Supervising Physician Co-Signing Physician Notes Resident Physician Supervision Note: I independently interviewed and examined the patient and verified the francis history and physical, reviewed labs and image studies and agree with resident findings and care plan. Resident Activity Tracking Resident Involvement: Resident Care Provided Care Provided: Adult Hospital Medicine
== END 2022-06-08 12:42 | disposition home or self-care (01) | DRG 388 ==
LOC: ED 19:58 → 3E 06-03 01:26 → SUATTDRO 06-03 01:26 → 3E 06-03 02:33

== ENCOUNTER 2022-06-18 06:03 | Inpatient (IN) ==
--- NOTE | 2022-06-18 06:41 | Emergency Department Note ---
Impression & Plan Partial obstruction of small intestine, Ovarian cancer, Anemia ED Provider Note CHIEF COMPLAINT: Abdominal pain, colostomy HISTORY OF PRESENT ILLNESS: This 57-year-old female patient presents to the emergency department with complaints of mid upper abdominal pain. Patient has a history of ovarian cancer and recurrent small bowel obstruction. She does have a colostomy in place. Over the last several days the patient has had clear liquids x48 hours and then last evening did eat a yogurt. She then quickly had abdominal bloating, nausea and belching. states this will be her fourth small bowel obstruction in 6 months. They do typically resolve with bowel rest and G-tube. REVIEW OF SYSTEMS: A review of systems was performed with positives and pertinent negatives listed in the history of present illness. 10 systems were reviewed and are otherwise negative. ALLERGIES: see below MEDICATIONS: see below PMH: see below SOCIAL HISTORY: see below DDx: SBO, viral illness, diverticulitis, PUD, pancreatitis, biliary pathology, hernia, volvulus, constipation, as well as other pathologies. PHYSICAL EXAM: Vital signs reviewed. General: Chronically ill-appearing 57-year-old female, in no significant distress. Thin and frail. HEENT: No scleral icterus, PERRLA, neck supple. Atraumatic. Cardiovascular: Regular rate and rhythm, no extra sounds. Pulmonary: Clear to auscultation bilaterally, normal work of breathing. Abdomen: Soft, thin, mild diffuse tenderness,minimally distended, + tympany to percussion, positive bowel sounds. Colostomy in place Musculoskeletal: Atraumatic, no peripheral edema. Neurologic: Patient awake alert and oriented x 3 Skin: Warm, dry, no rash EMERGENCY DEPARTMENT COURSE/MDM: This patient was evaluated and appeared to be in some discomfort. IV access was obtained and laboratory work was drawn. Patient was medicated with IV Dilaudid and Zofran. Abdominal imaging was performed and reveals a partial small bowel obstruction with a large amount of fluid in the stomach. Cancer findings are redemonstrated. Patient had a great deal of discomfort and an NG tube was placed as requested. Patient was hydrated with normal saline solution and potassium was repleted. Case was discussed with hospital service will evaluate the patient for admission for management. Patient has been aware of the plan and agreed. MONITORING: An order for cardiac monitoring was placed and the patient is noted to be in a sinus tachycardia at 108 beats per minute. RADIOLOGY: See below DISPOSITION: Admission Past Med/Surg History Medical History (Updated 06/26/22 @ 08:30 by Margareth Parnell MD) Abdominal ascites Abdominal distension Anemia Anxiety and depression Ascites Asthma Asthma LAST USED RESCUE INHALER>BEEN A WHILE Bilateral tinnitus Colostomy present Environmental allergies Failure to thrive GERD (gastroesophageal reflux disease) Gluten intolerance History of anorexia nervosa History of ileus S/P HYSTERECTOMY Hypoglycemia Hypokalemia Hypokalemia Hypothyroidism Itching REASON FOR DAPSONE Large bowel obstruction Leukocytosis Low iron HX IRON INFUSION Migraine Ovarian cancer Ovarian cancer PRESENT DX>REASON FOR A-PORT (HAS RECIEVED 6 CYCLES OF CHEMO 1 YEAR AGO) Ovarian cancer Port-A-Cath in place SBO (small bowel obstruction) SBO (small bowel obstruction) Sinus tachycardia Small bowel obstruction Small bowel obstruction Surgical History (Updated 06/21/22 @ 15:15 by Renee Childers RN) H/O abdominal surgery AT [facility] 07/20/21 TO REMOVE CANCER IN ABDOMEN/COLON RESECTION WITH COLOSTOMY & INTRAPERITONEAL CHEMO H/O total hysterectomy + REMOVAL OVARIAN CYSTECTOMY History of colonoscopy History of esophagogastroduodenoscopy (EGD) History of knee surgery LEFT PATELLA REPAIR Nausea and vomiting after administration of anesthetic agent PEG (percutaneous endoscopic gastrostomy) adjustment/replacement/removal (06/21/22) EGD Gastric Tube Placement - Manpreet Celeste DO Port-A-Cath in place (08/30/21) Insertion Access Port with Fluoroscopy(Right) - Ilan Vee DO 08/30/2021 [place] teeth removed Family History Grandmother (Maternal) Breast cancer Hypertension Grandfather (Maternal) No problems noted. Father Hearing loss Mother Hearing loss Allergies Asthma Sister Allergies Asthma Other No family history of adverse response to anesthesia No family history of bleeding disorder Denies family history of Heart disease Cancer Stroke Social History Smoking Status: Never smoker Second Hand Exposure: No; Hx Alcohol Use: No Hx Substance Use: No Preferred Language: Italian Communication Ability: Effective Visual Impairment: Limited Hearing Ability: Normal Carriage Operator Required: No Beliefs That Will Affect Care: None marital status: Current Living Situation: Spouse current occupational status: employed and 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 Seatbelt Use: always Sunscreen Use: Yes Do you think of yourself as: straight/heterosexual Assistive Devices: None Allergies Allergies Allergy/AdvReac Type Severity Reaction Status Date / Time doxycycline Allergy Intermediate RASH Verified 06/12/22 10:36 gluten AdvReac Intermediate Abdominal Verified 06/12/22 10:36 Pain lactose AdvReac Intermediate Abdominal Verified 06/12/22 10:36 Pain Penicillins AdvReac Intermediate Nausea, Verified 06/12/22 10:36 diarrhea Home Meds Home Medications Medication Instructions Recorded Confirmed montelukast 10 mg tablet 10 mg PO QPM 11/05/19 06/12/22 sertraline 100 mg tablet 200 mg PO QPM 11/05/19 06/12/22 dapsone 25 mg tablet 25 mg PO BID 04/13/20 06/12/22 famotidine 20 mg tablet 20 mg PO QAM 04/13/20 06/12/22 cholecalciferol (vitamin D3) 50 50 mcg PO QAM 05/11/20 06/12/22 mcg (2,000 unit) capsule fexofenadine 180 mg tablet 180 mg PO HS 05/11/20 06/12/22 (Liana Allergy) fluticasone propionate 50 1 spray intranasal BID 05/11/20 06/12/22 mcg/actuation nasal spray,suspension (Flonase Allergy Relief) topiramate 100 mg tablet (Topamax) 100 mg PO QPM 05/11/20 06/12/22 beclomethasone dipropionate 40 1 inh inhalation QAM 05/12/20 06/12/22 mcg/actuation HFA breath activated aerosol (Qvar RediHaler) fremanezumab-vfrm 225 mg/1.5 mL 225 mg subcut MONTHLY 05/12/20 06/12/22 subcutaneous auto-injector (Ajovy) prochlorperazine maleate 5 mg 5 mg PO BID PRN Nausea 05/12/20 06/12/22 tablet (Compazine) acetaminophen 325 mg tablet 325 mg PO QID PRN Pain 08/13/20 06/12/22 (Tylenol) rsszonfusivcp-yblbfclvjbssvdcykh-jvmsgbyoxehlt 1 cap PO DAILY PRN MIGRAINES 08/13/20 06/12/22 capsule oxycodone-acetaminophen 5 mg-325 1 tab PO Q4 PRN Pain 03/06/22 06/12/22 mg tablet polyethylene glycol 3350 17 17 g PO DAILY 03/23/22 06/12/22 gram/dose oral powder (Miralax) sennosides 8.6 mg capsule (senna) 8.6 mg PO DAILY 03/23/22 06/12/22 levothyroxine 25 mcg tablet 25 mcg PO DAILY 04/12/22 06/12/22 Previous Rx's Medication Instructions Recorded nystatin 100,000 unit/gram topical 1 applic topical .COMPLEX #60 grams 05/04/22 powder ondansetron 8 mg disintegrating 8 mg PO Q8H 30 days #90 tabs 05/12/22 tablet lidocaine HCl 2 % mucosal solution 8.75 ml mucous membrane QID throat 06/08/22 (Lidocaine Viscous) pain 14 days #700 mL buspirone 5 mg tablet 5 mg PO BID #60 tabs 06/12/22 lorazepam 0.5 mg tablet 0.5 mg PO BID PRN anxiety #45 tabs 06/12/22 pantoprazole 40 mg tablet,delayed 40 mg PO BID 30 days #60 tabs 06/12/22 release Results & Data (ED) Vital Signs Vital Signs - 24 hr 06/18/22 06:07 Temperature 37 C Temperature Source Temporal Artery Scan Pulse Rate 108 H Respiratory Rate 20 Respiratory Effort / Characteristics Non-Labored Spontaneous Respiratory Depth Normal Blood Pressure 125/84 Blood Pressure Mean 97 Pulse Oximetry 97 Oxygen Delivery Method Room Air Sepsis Recent Fever Within 48 Hours No Sepsis New/Unexplained Change in Mental Status No Sepsis Action Taken by Nursing No Action Required Home Medications Current Medication List: was personally reviewed by me Laboratory Data Attestation: I reviewed the patient's lab results. Result diagrams: 06/26/22 05:56 06/26/22 05:56 Lab Results 06/18/22 06/18/22 06/18/22 Range/Units 07:40 07:40 07:50 WBC 4.96 (4.8-10.8) K/ul RBC 2.23 L (3.93-5.22) M/uL Hgb 7.5 L (12.0-16.0) g/dl Hct 22.2 L (34.1-44.9) % MCV 99.6 (80.0-100.0) fL MCH 33.6 (25.0-34.0) pg MCHC 33.8 (32.0-36.0) g/dL RDW Std Deviation 50.2 H (36.4-46.3) fL RDW Coeff of Risa 13.7 (11.5-14.5) % Plt Count 28 L* (130-400) K/uL MPV 12.2 (9.4-12.3) fL Immature Gran % (Auto) 1.4 % Neut % (Auto) 82.9 % Lymph % (Auto) 10.9 % [place] % (Auto) 4.2 % Eos % (Auto) 0.0 % Baso % (Auto) 0.6 % Neut # (Auto) 4.11 (1.4-6.5) K/uL Lymph # (Auto) 0.54 L (1.2-3.4) K/uL [place] # (Auto) 0.21 L (0.24-0.82) K/uL Eos # (Auto) 0.00 (0-0.50) K/uL Baso # (Auto) 0.03 (0-0.2) K/uL Immature Gran # (Auto) 0.07 H (0.00-0.02) K/uL Platelet Estimate Decreased L (Normal) Sodium 135 L (136-145) mmol/L Potassium 3.2 L (3.5-5.1) mmol/L Chloride 97 L (98-107) mmol/L Carbon Dioxide 27 (21-32) mmol/L Anion Gap 11 (3-11) BUN 15 (6-23) mg/dl Creatinine 0.60 (0.6-1.2) mg/dl Est Cr Clr Drug Dosing 60.4 ml/min Est GFR ( Amer) 118.9 ml/min Est GFR (Non-Af Amer) 102.6 ml/min BUN/Creatinine Ratio 25.0 H (10-20) Glucose 111 H (70-99(Fasting)) mg/dl Calcium 9.7 (8.5-10.1) mg/dl Total Bilirubin 0.4 (0.2-1.0) mg/dl AST 15 (13-39) U/L ALT 9 (7-52) U/L Alkaline Phosphatase 104 (34-104) U/L Total Protein 6.9 (6.0-8.3) gm/dl Albumin 4.1 (3.4-5.0) gm/dl Globulin 2.8 (2.5-4.0) gm/dl Albumin/Globulin Ratio 1.5 (0.9-2) Lipase 256 H (11-82) U/L SARS-CoV-2, RNA, NAAT NEGATIVE (NEGATIVE) Administered Medications Acetaminophen (Acetaminophen 325 Mg Tab) 650 mg PO Q6H PRN PRN Reason: Mild Pain or Fever Stop: 07/25/22 09:11 Last Admin: 06/25/22 15:51 Dose: 650 mg Documented By: DERIC Buspirone HCl (Buspirone 5 Mg Tab) 5 mg PO BID CRYSTAL Stop: 07/23/22 20:59 Last Admin: 06/25/22 09:02 Dose: 5 mg Documented By: Admin: 06/24/22 20:33 Dose: 5 mg Documented By: Admin: 06/24/22 08:47 Dose: 5 mg Documented By: Admin: 06/23/22 21:39 Dose: 5 mg Documented By: MALCOMK Fluticasone Furoate (Fluticasone Furoate 100mcg 14 Puffs/Inhaler) 1 puffs INH QAM CRYSTAL Stop: 07/19/22 08:59 Last Admin: 06/25/22 09:02 Dose: 1 puffs Documented By: Admin: 06/24/22 08:48 Dose: Not Given Documented By: Admin: 06/23/22 10:25 Dose: Not Given Documented By: Admin: 06/22/22 08:43 Dose: Not Given Documented By: Admin: 06/21/22 10:19 Dose: Not Given Documented By: Admin: 06/20/22 09:33 Dose: 1 puffs Documented By: SMKimberly Admin: 06/19/22 08:43 Dose: Not Given Documented By: DLP Heparin Sodium (Porcine) (Heparin 100 Unit/Ml 5ml Flush) 5 ml FLUSH PRN PRN PRN Reason: Flush Stop: 07/20/22 00:17 Last Admin: 06/25/22 16:27 Dose: 5 ml Documented By: Admin: 06/25/22 14:38 Dose: 5 ml Documented By: DERIC Heparin Sodium (Porcine) (Heparin Sod 5,000 Unit/0.5 Ml Vial) 5,000 units SQ Q12 CRYSTAL Stop: 07/24/22 20:59 Last Admin: 06/25/22 21:21 Dose: 5,000 units Documented By: Admin: 06/25/22 09:02 Dose: 5,000 units Documented By: Admin: 06/24/22 20:33 Dose: 5,000 units Documented By: MICHI Hydromorphone HCl (Hydromorphone Inj 1 Mg/Ml Syringe) 1 mg IV Q6H PRN PRN Reason: severe Pain Stop: 07/09/22 16:18 Last Admin: 06/26/22 03:36 Dose: 1 mg Documented By: [id number] Admin: 06/25/22 21:20 Dose: 1 mg Documented By: QG Pantoprazole Sodium 40 mg/ (Syringe) 10 mls @ 5 mls/min IV BID CRYSTAL Stop: 07/20/22 20:59 Last Admin: 06/25/22 21:21 Dose: 5 mls/min Documented By: Admin: 06/25/22 09:02 Dose: 5 mls/min Documented By: Admin: 06/24/22 20:29 Dose: 5 mls/min Documented By: Admin: 06/24/22 08:49 Dose: 5 mls/min Documented By: Admin: 06/23/22 21:41 Dose: 5 mls/min Documented By: Admin: 06/23/22 10:25 Dose: 5 mls/min Documented By: Admin: 06/22/22 21:24 Dose: 5 mls/min Documented By: Admin: 06/22/22 08:33 Dose: 5 mls/min Documented By: Admin: 06/21/22 20:40 Dose: 5 mls/min Documented By: Admin: 06/21/22 09:39 Dose: 5 mls/min Documented By: Admin: 06/20/22 20:40 Dose: 5 mls/min Documented By: RADHA Cefepime HCl 2,000 mg/ Syringe 20 mls @ 5 mls/min IV Q8H CRYSTAL; Protocol Stop: 06/27/22 16:59 Last Admin: 06/26/22 02:11 Dose: 5 mls/min Documented By: Admin: 06/25/22 17:28 Dose: 5 mls/min Documented By: DERIC Metronidazole (Flagyl) 500 mg in 100 mls @ 100 mls/hr IV Q8H CRYSTAL Stop: 06/27/22 16:59 Last Infusion: 06/26/22 03:26 Dose: 0 mls/hr Documented By: [id number] Admin: 06/26/22 02:21 Dose: 100 mls/hr Documented By: Infusion: 06/25/22 19:12 Dose: 0 mls/hr Documented By: Admin: 06/25/22 18:02 Dose: 100 mls/hr Documented By: DERIC Ondansetron HCl 8 mg/ Dextrose 54 mls @ 200 mls/hr IV Q6H PRN PRN Reason: Nausea And Vomiting Stop: 07/25/22 18:10 Last Infusion: 06/26/22 04:24 Dose: 0 mls/hr Documented By: Admin: 06/26/22 03:58 Dose: 200 mls/hr Documented By: [id number] Infusion: 06/25/22 20:13 Dose: 0 mls/hr Documented By: Admin: 06/25/22 19:40 Dose: 200 mls/hr Documented By: QG Vancomycin HCl 750 mg/ Sodium (Chloride) 265 mls @ 200 mls/hr IV Q12H CRYSTAL; Protocol Stop: 06/28/22 01:59 Last Infusion: 06/26/22 04:06 Dose: 0 mls/hr Documented By: Admin: 06/26/22 02:27 Dose: 200 mls/hr Documented By: QG Sodium Chloride (Nss 1000ml) 1,000 mls @ 125 mls/hr IV .Q8H CRYSTAL Stop: 06/26/22 09:08 Last Infusion: 06/26/22 05:14 Dose: 125 mls/hr Documented By: Admin: 06/25/22 23:48 Dose: 60 mls/hr Documented By: QG Ketorolac Tromethamine (Ketorolac Tromethamine 15 Mg/Ml Vial) 15 mg IV Q6H PRN PRN Reason: Pain Stop: 06/30/22 10:29 Last Admin: 06/26/22 01:46 Dose: 15 mg Documented By: Admin: 06/25/22 17:40 Dose: 15 mg Documented By: Admin: 06/25/22 11:02 Dose: 15 mg Documented By: DERIC Levothyroxine Sodium (Levothyroxine Sodium 25 Mcg Tablet) 25 mcg PO DAILYBB [facility] Stop: 07/24/22 06:29 Last Admin: 06/26/22 05:49 Dose: Not Given Documented By: Admin: 06/25/22 06:34 Dose: 25 mcg Documented By: Admin: 06/24/22 06:08 Dose: 25 mcg Documented By: BLAISE Lorazepam (Lorazepam 0.5 Mg Tab) 0.5 mg PO BID PRN PRN Reason: Anxiety Stop: 07/25/22 09:07 Last Admin: 06/25/22 11:01 Dose: 0.5 mg Documented By: DERIC Menthol (Cough Drop (Sugar Free) Miguel Angel 24 Miguel Angel/1 Box) 1 miguel angel BUCCAL Q2H PRN PRN Reason: Sore Throat Stop: 07/20/22 08:48 Last Admin: 06/20/22 16:13 Dose: 1 miguel angel Documented By: MACI Methylnaltrexone Sloan (Methylnaltrexone Sloan 12 Mg/0.6 Ml Vial) 12 mg SQ Q2D [facility] Stop: 07/22/22 15:59 Last Admin: 06/24/22 16:18 Dose: 12 mg Documented By: Admin: 06/22/22 16:09 Dose: 12 mg Documented By: ZAYNAB Montelukast Sodium (Montelukast Sodium 10 Mg Tablet) 10 mg PO HS [facility] Stop: 07/23/22 20:59 Last Admin: 06/24/22 20:33 Dose: 10 mg Documented By: Admin: 06/23/22 21:39 Dose: 10 mg Documented By: BLIASE Polyethylene Glycol (Polyethylene (Miralax) 17 Gm Pack) 17 gm PO DAILY [facility] Stop: 07/25/22 09:14 Last Admin: 06/25/22 11:02 Dose: 17 gm Documented By: DERIC Sennosides (Sennosides 8.8 Mg/5 Ml Udc) 8.8 mg PO QAM [facility] Stop: 07/25/22 09:14 Last Admin: 06/25/22 11:01 Dose: 8.8 mg Documented By: DERIC Sertraline HCl (Sertraline Hcl 100 Mg Tablet) 200 mg PO QAM [facility] Stop: 07/22/22 11:14 Last Admin: 06/25/22 09:02 Dose: 200 mg Documented By: Admin: 06/24/22 08:48 Dose: 200 mg Documented By: Admin: 06/23/22 10:25 Dose: 200 mg Documented By: Admin: 06/22/22 13:25 Dose: 200 mg Documented By: ZAYNAB Topiramate (Topiramate 100 Mg Tab) [facility] Stop: 07/25/22 09:14 Last Admin: 06/25/22 11:01 Dose: 100 mg Documented By: DERIC Discontinued Medications Clindamycin Phosphate (Clindamycin 600 Mg/D5w 50 Ml Bag) Confirm Administered Dose 600 mg IV .STK-MED ONE Stop: 06/21/22 13:36 Last Admin: 06/21/22 13:37 Dose: 600 mg Documented By: [id number] Fentanyl Citrate (Fentanyl Citrate 100 Mcg/2 Ml Vial) 25 mcg IV Q5M PRN PRN Reason: PACU Use Only-Pain Stop: 06/21/22 21:29 Last Admin: 06/21/22 15:09 Dose: 25 mcg Documented By: GROVER Hydromorphone HCl (Hydromorphone Inj 0.5 Mg/0.5 Ml Syr) 0.25 mg IV Q30M PRN PRN Reason: Pain Stop: 07/02/22 06:49 Last Admin: 06/18/22 10:17 Dose: 0.25 mg Documented By: Admin: 06/18/22 08:22 Dose: 0.25 mg Documented By: Admin: 06/18/22 07:42 Dose: 0.25 mg Documented By: JOE Hydromorphone HCl (Hydromorphone Inj 1 Mg/Ml Syringe) 1 mg IV Q6H PRN PRN Reason: Severe Pain Stop: 07/04/22 16:05 Last Admin: 06/24/22 19:05 Dose: 1 mg Documented By: Admin: 06/22/22 21:24 Dose: 1 mg Documented By: Admin: 06/22/22 14:00 Dose: 1 mg Documented By: Admin: 06/22/22 00:35 Dose: 1 mg Documented By: Admin: 06/21/22 15:56 Dose: 1 mg Documented By: Admin: 06/21/22 09:39 Dose: 1 mg Documented By: Admin: 06/20/22 16:43 Dose: 1 mg Documented By: SML Hydromorphone HCl (Hydromorphone Inj 1 Mg/Ml Syringe) 1 mg IV Q6H PRN PRN Reason: Pain Stop: 07/09/22 16:18 Last Admin: 06/25/22 16:26 Dose: 1 mg Documented By: DERIC Sodium Chloride (Nss 1000ml) 1,000 mls @ 999 mls/hr IV .Q1H1M STA Stop: 06/18/22 07:42 Last Infusion: 06/18/22 09:40 Dose: 0 mls/hr Documented By: Admin: 06/18/22 07:42 Dose: 999 mls/hr Documented By: JOE Potassium Chloride (K Thiago / Wtr) 10 meq in 100 mls @ 100 mls/hr IV Q1H CRYSTAL; Protocol Stop: 06/18/22 10:44 Last Infusion: 06/18/22 11:18 Dose: 0 mls/hr Documented By: Admin: 06/18/22 10:18 Dose: 100 mls/hr Documented By: Infusion: 06/18/22 09:54 Dose: 100 mls/hr Documented By: Admin: 06/18/22 08:54 Dose: 100 mls/hr Documented By: JOE Sodium Chloride (Nss 1000ml) 1,000 mls @ 125 mls/hr IV .Q8H CR[facility]AL Stop: 07/18/22 09:14 Last Admin: 06/18/22 14:16 Dose: Not Given Documented By: DLP Sodium Chloride (Nss) 500 mls @ 999 mls/hr IV .Q31M ONE Stop: 06/18/22 09:36 Last Infusion: 06/18/22 10:49 Dose: 0 mls/hr Documented By: Admin: 06/18/22 10:18 Dose: 999 mls/hr Documented By: JOE Potassium Chloride/Dextrose/Sod Cl (D5nss + 20meq Kcl) 20 meq in 1,000 mls @ 120 mls/hr IV .Q8H20M [facility] Stop: 06/19/22 15:59 Last Infusion: 06/19/22 16:02 Dose: 0 mls/hr Documented By: Admin: 06/19/22 15:51 Dose: 120 mls/hr Documented By: Infusion: 06/19/22 15:51 Dose: 0 mls/hr Documented By: Infusion: 06/19/22 10:08 Dose: 120 mls/hr Documented By: Infusion: 06/19/22 09:06 Dose: 0 mls/hr Documented By: Admin: 06/19/22 06:16 Dose: 120 mls/hr Documented By: Infusion: 06/19/22 06:16 Dose: 120 mls/hr Documented By: Admin: 06/18/22 22:12 Dose: 120 mls/hr Documented By: Infusion: 06/18/22 22:12 Dose: 120 mls/hr Documented By: Admin: 06/18/22 14:41 Dose: 120 mls/hr Documented By: MIKAYLA Potassium Chloride (K Thiago / Wtr) 10 meq in 100 mls @ 100 mls/hr IV ONE ONE Stop: 06/18/22 15:12 Last Infusion: 06/18/22 15:57 Dose: 0 mls/hr Documented By: Admin: 06/18/22 14:42 Dose: 100 mls/hr Documented By: MIKAYLA Lorazepam 0.5 mg/ Syringe 0.5 mls @ 2 mls/min IV BID PRN PRN Reason: Anxiety Stop: 07/18/22 14:18 Last Admin: 06/24/22 22:06 Dose: 2 mls/min Documented By: Admin: 06/24/22 09:54 Dose: 2 mls/min Documented By: Admin: 06/23/22 21:41 Dose: 2 mls/min Documented By: Admin: 06/23/22 11:14 Dose: 2 mls/min Documented By: Admin: 06/22/22 17:37 Dose: 2 mls/min Documented By: Admin: 06/22/22 08:34 Dose: 2 mls/min Documented By: Admin: 06/21/22 21:26 Dose: 2 mls/min Documented By: Admin: 06/20/22 21:25 Dose: 2 mls/min Documented By: Admin: 06/20/22 10:03 Dose: 2 mls/min Documented By: Admin: 06/19/22 21:28 Dose: 2 mls/min Documented By: Admin: 06/19/22 13:14 Dose: 2 mls/min Documented By: Admin: 06/18/22 20:45 Dose: 2 mls/min Documented By: HENNA Acetaminophen (Ofirmev) 1,000 mg in 100 mls @ 400 mls/hr IV Q8H PRN PRN Reason: mild pain/fever Stop: 06/22/22 11:09 Last Infusion: 06/21/22 15:15 Dose: 0 mls/hr Documented By: Admin: 06/21/22 14:54 Dose: 400 mls/hr Documented By: GROVER Magnesium Sulfate/Dextrose (Magnesium Sulfate / D5w) 1 gm in 100 mls @ 50 mls/h r IV Q2H [facility]YSTAL Stop: 06/19/22 19:14 Last Infusion: 06/19/22 20:50 Dose: 0 mls/hr Documented By: Admin: 06/19/22 17:35 Dose: 50 mls/hr Documented By: Infusion: 06/19/22 17:35 Dose: 0 mls/hr Documented By: Admin: 06/19/22 15:35 Dose: 50 mls/hr Documented By: Infusion: 06/19/22 15:35 Dose: 0 mls/hr Documented By: Admin: 06/19/22 13:31 Dose: 50 mls/hr Documented By: Infusion: 06/19/22 13:31 Dose: 0 mls/hr Documented By: Admin: 06/19/22 11:26 Dose: 50 mls/hr Documented By: MIKAYLA Fat Emulsion-[place] Oil/Soybean Oil (Clinolipid 20% Iv Fat Emulsion) 250 mls @ 41.667 mls/hr IV .Q6H [facility] Stop: 06/19/22 21:59 Last Infusion: 06/19/22 22:13 Dose: 0 mls/hr Documented By: Admin: 06/19/22 15:52 Dose: 41.7 mls/hr Documented By: DLP Amino Acids 1,773 ml/ (Nutrition (Parenteral)) 1,773 mls @ 74 mls/hr IV .[id number] CRYSTAL; Protocol Stop: 06/20/22 15:57 Last Infusion: 06/20/22 15:50 Dose: 0 mls/hr Documented By: Admin: 06/19/22 15:49 Dose: 74 mls/hr Documented By: DLP Famotidine 20 mg/ Syringe 5 mls @ 2.5 mls/min IV NOW ONE Stop: 06/19/22 21:01 Last Admin: 06/19/22 21:28 Dose: 2.5 mls/min Documented By: QG Potassium Chloride (K Thiago / Wtr) 10 meq in 100 mls @ 100 mls/hr IV Q1H [facility]STAL Stop: 06/20/22 13:44 Last Infusion: 06/20/22 14:21 Dose: 0 mls/hr Documented By: Admin: 06/20/22 13:16 Dose: 100 mls/hr Documented By: Infusion: 06/20/22 13:16 Dose: 100 mls/hr Documented By: Admin: 06/20/22 12:19 Dose: 100 mls/hr Documented By: Infusion: 06/20/22 12:19 Dose: 0 mls/hr Documented By: Admin: 06/20/22 10:55 Dose: 100 mls/hr Documented By: Infusion: 06/20/22 10:55 Dose: 0 mls/hr Documented By: Admin: 06/20/22 09:54 Dose: 100 mls/hr Documented By: SML Amino Acids 1,811 ml/ (Nutrition (Parenteral)) 1,811 mls @ 75 mls/hr IV .Q24H CRYSTAL; Protocol Stop: 06/21/22 15:59 Last Infusion: 06/21/22 15:51 Dose: 0 mls/hr Documented By: Infusion: 06/21/22 13:15 Dose: 0 mls/hr Documented By: Admin: 06/20/22 15:46 Dose: 75 mls/hr Documented By: SML Fat Emulsion-[place] Oil/Soybean Oil (Clinolipid 20% Iv Fat Emulsion) 250 mls @ 41.667 mls/hr IV .Q6H CRYSTAL Stop: 06/21/22 21:59 Last Infusion: 06/21/22 22:08 Dose: 0 mls/hr Documented By: Admin: 06/21/22 16:04 Dose: 41.7 mls/hr Documented By: DERIC Amino Acids/Dextrose 1,074 ml/ (Nutrition (Parenteral)) 1,074 mls @ 44.75 mls/hr IV .Q24H CRYSTAL; Protocol Stop: 06/22/22 15:59 Last Infusion: 06/22/22 16:08 Dose: 0 mls/hr Documented By: Admin: 06/21/22 16:04 Dose: 44.8 mls/hr Documented By: DERIC Clindamycin Phosphate (Cleocin/D5w) 900 mg in 50 mls @ 100 mls/hr IV PREOP [facility] Stop: 06/22/22 05:59 Last Admin: 06/21/22 13:55 Dose: Not Given Documented By: DERIC Clindamycin Phosphate (Cleocin/D5w) 600 mg in 50 mls @ 100 mls/hr IV NOW ONE Stop: 06/21/22 14:01 Last Admin: 06/21/22 15:50 Dose: Not Given Documented By: DERIC Magnesium Sulfate/Dextrose (Magnesium Sulfate / D5w) 1 gm in 100 mls @ 50 mls/hr IV Q2H [facility] Stop: 06/22/22 13:29 Last Infusion: 06/22/22 15:26 Dose: 0 mls/hr Documented By: Admin: 06/22/22 12:37 Dose: 50 mls/hr Documented By: Infusion: 06/22/22 12:37 Dose: 50 mls/hr Documented By: Infusion: 06/22/22 10:47 Dose: 50 mls/hr Documented By: Admin: 06/22/22 10:44 Dose: 50 mls/hr Documented By: ZAYNAB Amino Acids/Dextrose 1,084 ml/ (Nutrition (Parenteral)) 1,084 mls @ 45.1 mls/hr IV .Q24H [facility]STAL; Protocol Stop: 06/23/22 15:59 Last Infusion: 06/23/22 15:58 Dose: 0 mls/hr Documented By: Infusion: 06/23/22 14:38 Dose: 45.1 mls/hr Documented By: Infusion: 06/23/22 14:16 Dose: 0 mls/hr Documented By: Admin: 06/22/22 16:08 Dose: 45.1 mls/hr Documented By: ZAYNAB Acetaminophen 550 mg/ EMPTY (BAG) 55 mls @ 220 mls/hr IV Q8 [facility]STAL; Protocol Stop: 06/25/22 21:59 Last Infusion: 06/25/22 06:53 Dose: 0 mls/hr Documented By: Admin: 06/25/22 06:33 Dose: 220 mls/hr Documented By: Infusion: 06/24/22 22:34 Dose: 0 mls/hr Documented By: Admin: 06/24/22 22:05 Dose: 220 mls/hr Documented By: Admin: 06/24/22 15:12 Dose: Not Given Documented By: Infusion: 06/24/22 06:36 Dose: 0 mls/hr Documented By: Infusion: 06/24/22 06:20 Dose: 0 mls/hr Documented By: Admin: 06/24/22 06:08 Dose: 220 mls/hr Documented By: Infusion: 06/23/22 21:56 Dose: 0 mls/hr Documented By: Admin: 06/23/22 21:41 Dose: 220 mls/hr Documented By: Infusion: 06/23/22 14:38 Dose: 0 mls/hr Documented By: Admin: 06/23/22 14:16 Dose: 220 mls/hr Documented By: Infusion: 06/23/22 05:50 Dose: 0 mls/hr Documented By: Admin: 06/23/22 05:35 Dose: 220 mls/hr Documented By: Infusion: 06/22/22 23:05 Dose: 0 mls/hr Documented By: Admin: 06/22/22 22:51 Dose: 220 mls/hr Documented By: BLAISE Amino Acids/Dextrose 1,082 ml/ (Nutrition (Parenteral)) 1,082 mls @ 45.1 mls/hr IV .Q24H CRYSTAL; Protocol Stop: 06/24/22 15:59 Last Infusion: 06/24/22 16:32 Dose: 0 mls/hr Documented By: Admin: 06/23/22 15:47 Dose: 45.1 mls/hr Documented By: ZAYNAB Fat Emulsion-[place] Oil/Soybean Oil (Clinolipid 20% Iv Fat Emulsion) 250 mls @ 41.667 mls/hr IV .Q6H CRYSTAL Stop: 06/23/22 21:59 Last Infusion: 06/23/22 21:55 Dose: 0 mls/hr Documented By: Admin: 06/23/22 15:46 Dose: 41.7 mls/hr Documented By: ZAYNAB Amino Acids/Dextrose 1,101 ml/ (Nutrition (Parenteral)) 1,101 mls @ 45.9 mls/hr IV .Q24H CRYSTAL; Protocol Stop: 06/25/22 15:59 Last Infusion: 06/25/22 14:30 Dose: 0 mls/hr Documented By: Admin: 06/24/22 16:19 Dose: 45.9 mls/hr Documented By: RACHEL Fat Emulsion-[place] Oil/Soybean Oil (Clinolipid 20% Iv Fat Emulsion) 250 mls @ 41.667 mls/hr IV .Q6H CRYSTAL Stop: 06/24/22 21:59 Last Infusion: 06/24/22 22:06 Dose: 0 mls/hr Documented By: Admin: 06/24/22 16:18 Dose: 41.7 mls/hr Documented By: RACHEL Vancomycin HCl 500 mg/ Sodium (Chloride) 510 mls @ 200 mls/hr IV ONE ONE Stop: 06/25/22 19:32 Last Infusion: 06/25/22 20:45 Dose: 0 mls/hr Documented By: Admin: 06/25/22 18:02 Dose: 200 mls/hr Documented By: DERIC Sodium Chloride (Nss 1000ml) 1,000 mls @ 999 mls/hr IV .Q1H1M CRYSTAL Stop: 06/25/22 17:30 Last Infusion: 06/25/22 18:07 Dose: 0 mls/hr Documented By: Admin: 06/25/22 17:11 Dose: 999 mls/hr Documented By: DERIC Magnesium Sulfate/Dextrose (Magnesium Sulfate / D5w) 1 gm in 100 mls @ 50 mls/hr IV Q2H CRYSTAL Stop: 06/25/22 22:14 Last Infusion: 06/26/22 02:45 Dose: 0 mls/hr Documented By: Infusion: 06/26/22 01:15 Dose: 50 mls/hr Documented By: Infusion: 06/25/22 22:54 Dose: 0 mls/hr Documented By: Admin: 06/25/22 22:19 Dose: 50 mls/hr Documented By: Infusion: 06/25/22 21:38 Dose: 50 mls/hr Documented By: Admin: 06/25/22 19:38 Dose: 50 mls/hr Documented By: QG Sodium Chloride (Nss 1000ml) 500 mls @ 500 mls/hr IV .Q1H ONE Stop: 06/25/22 23:24 Last Infusion: 06/26/22 01:09 Dose: 0 mls/hr Documented By: Admin: 06/25/22 22:30 Dose: 500 mls/hr Documented By: QG Albumin Human (Albumin 25% 100 Ml) 25 gm in 100 mls @ 50 mls/hr IV ONE ONE Stop: 06/26/22 00:24 Last Infusion: 06/26/22 01:15 Dose: 0 mls/hr Documented By: Admin: 06/25/22 22:54 Dose: 50 mls/hr Documented By: QG Acetaminophen 550 mg/ EMPTY (BAG) 55 mls @ 220 mls/hr IV NOW ONE Stop: 06/26/22 02:59 Last Infusion: 06/26/22 04:06 Dose: 0 mls/hr Documented By: Admin: 06/26/22 03:03 Dose: 220 mls/hr Documented By: QG Sodium Chloride (Nss 1000ml) 250 mls @ 999 mls/hr IV .Q16M ONE Stop: 06/26/22 06:25 Last Infusion: 06/26/22 06:47 Dose: 0 mls/hr Documented By: Admin: 06/26/22 06:29 Dose: 999 mls/hr Documented By: QG Albumin Human (Albumin 25% 100 Ml) 25 gm in 100 mls @ 50 mls/hr IV ONE ONE Stop: 06/26/22 08:29 Last Admin: 06/26/22 06:30 Dose: 50 mls/hr Documented By: QG Ioversol (Optiray 350 100ml) 88 ml IV ONCE ONE Stop: 06/18/22 08:50 Last Admin: 06/18/22 08:49 Dose: 88 ml Documented By: ALISHA Ioversol (Optiray 350 100ml) 90 ml IV ONCE ONE Stop: 06/25/22 18:33 Last Admin: 06/25/22 18:32 Dose: 90 ml Documented By: KATIE Ketorolac Tromethamine (Ketorolac Tromethamine 15 Mg/Ml Vial) 15 mg IV Q6H PRN PRN Reason: pain not relieved by tylenol Stop: 06/24/22 11:09 Last Admin: 06/24/22 08:47 Dose: 15 mg Documented By: Admin: 06/24/22 02:19 Dose: 15 mg Documented By: Admin: 06/23/22 18:09 Dose: 15 mg Documented By: Admin: 06/23/22 11:14 Dose: 15 mg Documented By: Admin: 06/23/22 05:15 Dose: 15 mg Documented By: Admin: 06/22/22 17:37 Dose: 15 mg Documented By: Admin: 06/22/22 08:33 Dose: 15 mg Documented By: Admin: 06/21/22 20:40 Dose: 15 mg Documented By: Admin: 06/21/22 10:38 Dose: 15 mg Documented By: Admin: 06/21/22 03:29 Dose: 15 mg Documented By: Admin: 06/20/22 19:09 Dose: 15 mg Documented By: Admin: 06/20/22 12:52 Dose: 15 mg Documented By: Admin: 06/20/22 06:39 Dose: 15 mg Documented By: Admin: 06/20/22 00:28 Dose: 15 mg Documented By: Admin: 06/19/22 18:14 Dose: 15 mg Documented By: Admin: 06/19/22 12:12 Dose: 15 mg Documented By: MIKAYLA Ketorolac Tromethamine (Ketorolac Tromethamine 15 Mg/Ml Vial) 15 mg IV Q6H PRN PRN Reason: breakthrough pain Stop: 06/29/22 14:57 Last Admin: 06/25/22 02:43 Dose: 15 mg Documented By: Admin: 06/24/22 15:12 Dose: 15 mg Documented By: RACHEL Miscellaneous (Stop Clinolipid) 1 each N/A @ [facility] Stop: 06/19/22 22:01 Last Admin: 06/19/22 22:13 Dose: 1 each Documented By: SIMIN Miscellaneous (Stop Clinolipid) 1 each N/A @ [facility] Stop: 06/21/22 22:01 Last Admin: 06/21/22 22:07 Dose: 1 each Documented By: RADHA Gonzalez (Stop Clinolipid) 1 each N/A @ [facility] Stop: 06/23/22 22:01 Last Admin: 06/23/22 22:32 Dose: 1 each Documented By: BLAISE Gonzalez (Stop Clinolipid) 1 each N/A @ [facility] Stop: 06/24/22 22:01 Last Admin: 06/24/22 22:06 Dose: 1 each Documented By: MICHI Morphine Sulfate (Morphine Sulfate 2 Mg/Ml Carp) 2 mg IV Q4H PRN PRN Reason: Severe Pain (7,8,9,10) on NRS Stop: 07/02/22 14:12 Last Admin: 06/19/22 20:36 Dose: 2 mg Documented By: Admin: 06/19/22 10:10 Dose: 2 mg Documented By: Admin: 06/18/22 20:44 Dose: 2 mg Documented By: HENNA Ondansetron HCl (Ondansetron Inj 2 Mg/Ml 2 Ml Vial) 4 mg IV NOW STA Stop: 06/18/22 06:43 Last Admin: 06/18/22 07:43 Dose: 4 mg Documented By: JOE Ondansetron HCl (Ondansetron Inj 2 Mg/Ml 2 Ml Vial) 4 mg IV Q6H PRN PRN Reason: Nausea And Vomiting Stop: 07/18/22 14:12 Last Admin: 06/24/22 22:06 Dose: 4 mg Documented By: Admin: 06/24/22 15:11 Dose: 4 mg Documented By: Admin: 06/24/22 08:47 Dose: 4 mg Documented By: Admin: 06/23/22 18:09 Dose: 4 mg Documented By: Admin: 06/23/22 11:14 Dose: 4 mg Documented By: Admin: 06/22/22 17:37 Dose: 4 mg Documented By: Admin: 06/22/22 08:34 Dose: 4 mg Documented By: Admin: 06/21/22 15:55 Dose: 4 mg Documented By: Admin: 06/21/22 09:52 Dose: 4 mg Documented By: Admin: 06/20/22 21:09 Dose: 4 mg Documented By: Admin: 06/20/22 09:51 Dose: 4 mg Documented By: Admin: 06/19/22 20:36 Dose: 4 mg Documented By: Admin: 06/19/22 12:12 Dose: 4 mg Documented By: Admin: 06/18/22 20:44 Dose: 4 mg Documented By: HENNA Ondansetron HCl (Ondansetron 4 Mg Od Tab) 4 mg PO Q8H PRN PRN Reason: Nausea Stop: 07/25/22 08:46 Last Admin: 06/25/22 11:17 Dose: 4 mg Documented By: DERIC Oxycodone/Acetaminophen (Oxycodone/Acetaminophen 5mg/325mg Tab) 1 tab PO Q4H PRN PRN Reason: Severe Pain Stop: 07/09/22 09:03 Last Admin: 06/25/22 14:50 Dose: 1 tab Documented By: DERIC Prochlorperazine (Prochlorperazine 5 Mg/Ml 2 Ml Vial) 10 mg IM ONE ONE Stop: 06/22/22 17:58 Last Admin: 06/22/22 19:36 Dose: 10 mg Documented By: ZAYNAB Imaging Data Radiologist's Impression: Abdomen/Pelvis CT 06/18/22 06:[address] WITH IV CONTRAST CT DOSE: 249.32 mGy.cm HISTORY: Acute generalized abdominal pain with possible small bowel obstruction . Prior partial small bowel resection with left lower quadrant colostomy colostomy, abd pain, SBO? TECHNIQUE: Multiaxial CT images of the abdomen and pelvis were performed following the IV administration of 80 cc of Optiray, A dose lowering technique was utilized adhering to the principles of ALARA. COMPARISON STUDY: CT abdomen and pelvis 06/03/2022 FINDINGS: Trace pleural effusions. Clear lung bases. No pneumatosis or p neumoperitoneum identified. Spleen measures 13.9 cm in length. Unremarkable pancreas and adrenal glands. Distended gallbladder. Unchanged appearance of the liver. Patency of the hepatic and portal veins. Mild bilateral pelvocaliectasis without luz elena hydronephrosis. Symmetric enhancement of the kidneys. Mild nonspecific urinary bladder wall thickening with partial distention. Ascites with peritoneal carcinomatosis redemonstrated. Stable 8 mm nodule within the left hemipelvis on image 294. Peritoneal thickening and enhancement. Small hiatal hernia. Decreased distention of the distal esophagus compared to the prior study. Distention of the stomach, proximal to mid small bowel is redemonstrated and appears similar to the prior exam. Prior partial bowel resection with left lower quadrant colostomy. Unremarkable soft tissues. No acute fracture. IMPRESSION: 1. Prior partial bowel resection with left lower quadrant colostomy. 2. Distention of the stomach, proximal to mid small bowel appears stable compared to the 06/03/2022 exam. Findings are suspicious for a partial small bowel obstruction. 3. Ascites with peritoneal thickening and peritoneal carcinomatosis redemonstrated. 4. Splenomegaly. 5. Additional findings as above. ACT 112: Negative or not required by law. The above report was generated using voice recognition software. It may contain grammatical, syntax or spelling errors. Electronically signed by: Harley Calero M.D. 06/18/2022 9:11 AM Chest X-Ray 06/18/22 10:15 XR chest 1V portable HISTORY: 57 years-old Female NGT placement status post placement of an enteric tube COMPARISON: CT abdomen and pelvis day, chest radiograph 05/13/2022 TECHNIQUE: AP view of the chest FINDINGS: Cardiomediastinal and hilar silhouettes are within normal limits. No pneumothorax, pleural effusion, airspace consolidation or overt pulmonary edema. Right IJ [id number] catheter distal tip is noted in the expected location of the mid SVC. Enteric tube distal tip courses into the stomach with distal tip outside the [id number]. The side-port is present in the gastric cardia. Distended air-filled stomach. Contrast opacified left renal collecting system. Bones appear grossly intact. IMPRESSION: 1. No acute processes of the chest. 2. Status post placement of an enteric tube with distal tip outside the [id number] and side port within the gastric cardia. 3. Distended air-filled stomach. ACT 112: Negative or not required by law. The above report was generated using voice recognition software. It may contain grammatical, syntax or spelling errors. Electronically signed by: Harley Calero M.D. 06/18/2022 10:33 AM Blood Pressure Blood Pressure Findings: Normal blood pressure Blood Pressure Disposition: did not require urgent referral Discharge Plan Visit Data Chief Complaint: Constipation Stated Complaint: CONSTIPATED ED Provider: Margareth Parnell Discharge Problem: Partial obstruction of small intestine, Ovarian cancer, Anemia Patient Disposition: Admitted As Inpatient Discharge Instructions Interventions: ED Discharge Assessment Last Done: 06/18/22 13:47
[2022-06-18] MEDS ORDERED: MoRPHine SULFATE 4 MG/ML 1 ML CARP\\VIAL IV PRN (06:42)
[2022-06-18] MEDS ORDERED: SODIUM CHLORIDE 0.9% 1000ML 1,000 ML IV STA (06:42)
[2022-06-18] MEDS ORDERED: ONDANSETRON INJ 2 MG/ML 2 ML VIAL IV STA (06:42)
[2022-06-18] MEDS: HYDROmorphone INJ 0.5 MG/0.5 ML SYR IV PRN ×3 (07:42→10:17)
[2022-06-18 08:16] LABS: Albumin Globulin Ratio 1.5 (0.9-2); Albumin Level 4.1 gm/dl (3.4-5.0); Bilirubin,Total 0.4 mg/dl (0.2-1.0); Calcium 9.7 mg/dl (8.5-10.1); Creatinine Clr Calc Pharmacy 60.4 ml/min; Est GFR (African American) 118.9 ml/min; Est GFR (Non-African American) 102.6 ml/min; Globulin 2.8 gm/dl (2.5-4.0); Potassium 3.2 mmol/L (3.5-5.1); Total Protein 6.9 gm/dl (6.0-8.3)
[2022-06-18 08:40] LABS: Basophils # (auto) 0.03 K/uL (0-0.2); Basophils % (auto) 0.6 %; Hematocrit (blood only) 22.2 % (34.1-44.9); Hemoglobin 7.5 g/dl (12.0-16.0); Immature Granulocytes # (auto) 0.07 K/uL (0.00-0.02); Immature Granulocytes % (auto) 1.4 %; Lymphocytes # (auto) 0.54 K/uL (1.2-3.4); Lymphocytes % (auto) 10.9 %; Mean Corpuscular Hemoglobin 33.6 pg (25.0-34.0); Mean Corpuscular Hgb Conc 33.8 g/dL (32.0-36.0); Mean Corpuscular Volume 99.6 fL (80.0-100.0); Mean Platelet Volume 12.2 fL (9.4-12.3); Monocytes # (auto) 0.21 K/uL (0.24-0.82); Monocytes % (auto) 4.2 %; Neutrophils # (auto) 4.11 K/uL (1.4-6.5); Neutrophils % (auto) 82.9 %; Platelet Count 28 K/uL (130-400); Platelet Estimate Decreased (Normal); RDW Coefficient of Variation 13.7 % (11.5-14.5); RDW Standard Deviation 50.2 fL (36.4-46.3); Red Blood Count 2.23 M/uL (3.93-5.22); White Blood Count 4.96 K/ul (4.8-10.8)
[2022-06-18] MEDS ORDERED: OPTIRAY 350 100ml IV ONE (08:49)
[2022-06-18] MEDS: POTASSIUM CHLORIDE / WTR 10 MEQ/100 ML PLCT IV SCH ×2 (08:54→10:18)
[2022-06-18] MEDS ORDERED: SODIUM CHLORIDE 0.9% 500 ML IV ONE (09:06)
--- NOTE | 2022-06-18 09:13 | CT Scan Report ---
ABDOMEN AND PELVIS CT WITH IV CONTRAST CT DOSE: 249.32 mGy.cm HISTORY: Acute generalized abdominal pain with possible small bowel obstruction . Prior partial small bowel resection with left lower quadrant colostomy colostomy, abd pain, SBO? TECHNIQUE: Multiaxial CT images of the abdomen and pelvis were performed following the IV administrat ion of 80 cc of Optiray, A dose lowering technique was utilized adhering to the principles of ALARA. COMPARISON STUDY: CT abdomen and pelvis 06/03/2022 FINDINGS: Trace pleural effusions. Clear lung bases. No pneumatosis or pneumoperitoneum identified. S pleen measures 13.9 cm in length. Unremarkable pancreas and adrenal glands. Distended gallbladder. Un changed appearance of the liver. Patency of the hepatic and portal veins. Mild bilateral pelvocaliect asis without luz elena hydronephrosis. Symmetric enhancement of the kidneys. Mild nonspecific urinary jd dder wall thickening with partial distention. Ascites with peritoneal carcinomatosis redemonstrated. Stable 8 mm nodule within the left hemipelvis on image 294. Peritoneal thickening and enhancement. Small hiatal hernia. Decreased distention of the distal esophagus compared to the prior study. Disten tion of the stomach, proximal to mid small bowel is redemonstrated and appears similar to the prior e xam. Prior partial bowel resection with left lower quadrant colostomy. Unremarkable soft tissues. No acute fracture. IMPRESSION: 1. Prior partial bowel resection with left lower quadrant colostomy. 2. Distention of the stomach, proximal to mid small bowel appears stable compared to the 06/03/2022 e xam. Findings are suspicious for a partial small bowel obstruction. 3. Ascites with peritoneal thickening and peritoneal carcinomatosis redemonstrated. 4. Splenomegaly. 5. Additional findings as above. ACT 112: Negative or not required by law. The above report was generated using voice recognition software. It may contain grammatical, syntax o r spelling errors. Electronically signed by: Harley Calero M.D. 06/18/2022 9:11 AM
[2022-06-18] MEDS ORDERED: SODIUM CHLORIDE 0.9% 1000ML 1,000 ML IV SCH (09:15)
--- NOTE | 2022-06-18 10:29 | History & Physical Report ---
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 Patient has had 5 small bowel obstructions in the last 6 months thought to be due to intra-abdominal cancer versus adhesions. Past partial SBO's have resolved with conservative medical management. Recurrent partial small bowel obstruction - Multifactorial. W/ ascites pending therapeutic para, multiple sx, adhesions, and intra-abdominal maligancy - CT-A/P: 1. Prior partial bowel resection with left lower quadrant colostomy. 2. Distention of the stomach, proximal to mid small bowel appears stable compared to the 06/03/2022 exam. Findings are suspicious for a partial small bowel obstruction. 3. Ascites with peritoneal thickening and peritoneal c arcinomatosis redemonstrated. 4. Splenomegaly. History of multiple abdominal surgeries, prior SBO's which resolved medically, intra-abdominal cancer with carcinomatosis NGT ordered/placed N.p.o. may have ice chips for comfort as NGT is in place Given multiple and short recurrence, surgery consulted Lipase is elevated in the setting of SBO. Distended gallbladder is pleasant w ithout evidence of cholecystitis. Transaminases and bilirubin is normal. Trend. - If she fails medical management consult surgery, will likely need transfer to [facility] at that piont Given history of significant depletion, weight loss, and hypoglycemia during admission will initiate PPN early and D5 with fluids pending orders Past surgical intervention deferred as patient had been receiving Avastin, she is now outside of the 4-week window should she fail medical therapy and surgical intervention be recommended Ovarian cancer with malignant ascites and carcinomatosis High-grade ovarian carcinoma diagnosed 03/2020; has received combination of chemotherapy and initial surgery which was performed at [facility]. Has Neulasta Onpro device Avastin given 6 weeks ago Baseline hemoglobin fluctuates from 7.510.0 in the setting of chemotherapy and malignancy, with associated thrombocytopenia to 28 on admission. Last completed chemo carbop/doxil 16 days ago, suspect 2/2 chemo toxic effect Trend hemoglobin, defer platelet transfusion unless active bleeding or plt <10k - Last avastin 6 weeks ago. - Paracentesis q4-6 weeks, scheduled on Sunday. Was pending for sunday. Ordered Hyponatremia, hypokalemia In the setting of malnutrition Potassium riders ordered, IV FM while n.p.o. Hypothyroidism Synthroid held while n.p.o. Chronic anemia, Thrombocytopenia With past gastric occult test positive Hemoglobin 7.5, may drop with reconstitution of fluids Platelets 28. Transfusion threshold 10,000 unless significant bleeding Patient with a low-volume nosebleed which stopped after 5 minutes of pressure with NGT placement. No other bleeding per patient If clinically significant bleeding develops, transfuse platelets.Blood Transfusion threshold 7.0. Blood consent signed Trend CBC every 8 hours x24 hours Colostomy Intact, liquid output for 2 days Routine management Port-A-Cath Intact, no overlying warmth/tenderness Depression/anxiety Hold C[facility] REP BuSpar/sertraline while n.p.o. Continue Ativan 0.5 mg twice daily as needed converted to IV Chronic malnutrition - Weight loss with malignancy, recurrent pSBO - 110lbs prior to malignancy - Has frequently required TPN - hx of blood sugar crashing PPN started early as noted above DVT prophylaxis: Pharmacal prophylaxis deferred in the setting of thrombocytopenia CODE STATUS: Full code Disposition: Medical telemetry due to tachycardia with borderline hemoglobin levels, if clinically stable and improving transfer to [facility] [place] [place] Diet: N.p.o. (2) Ovarian cancer: (3) Hypothyroidism: (4) Colostomy present: (5) GERD (gastroesophageal reflux disease): (6) Hyponatremia: (7) Ascites: (8) Diffuse abdominal pain: (9) Anxiety and depression: (10) Hx of intestinal obstruction: History of Present Illness Primary Care Provider: DO Muriel Moreon is a 57-year-old female with a past medical history of metastatic ovarian cancer with peritoneal carcinomatosis and ascites with recurrent small bowel obstruction, GERD, asthma, anxiety/depression who recently underwent chemotherapy 2 weeks ago with a dose of Neulasta 06/04 and who was recently admitted 06/03-05/2017 for recurrent SBO who presents emergency department with 3 days of worsening abdominal discomfort, minimal clear liquid intake, and a feeling that her bowel obstruction has recurred. Patient has had 5 small bowel obstructions in the last 6 months thought to be due to intra-abdominal cancer versus adhesions. Past partial SBO's have resolved with conservative medical management. Seen at bedside with tan Hampton On Sunday (2 days ago) felt like she might be breweing a blockage. Started a clear liquid diet for conservative management. Was having just thin-liquid output into her ostomy which is normally more thick liquid. No improvement over the next day and a half, last night developed mroe back pain and abdominal p ressure in her lower abdomen and with pressure going up into the upper abdomen. +Nausea, no vomiting. Does tend to have worsened acid reflux with obstructions which has also been present. +hiccuping in the last day. No fevers or chills Gets a little short of breath with pain episodes. Hx of high grade ovarian cancer dx 03/2020. Had surgery to remove large mass which was initially thought to be a cyst. Had a complete hysterectomy. Cyst was just a cyst but other ovary had cancer Had chemo 2020 had 'came back with a vengeance'. Jun 2021 had 2 section of bowel removed, coloscopy place, and debulking of abdomen. Started chemo 08/2020 and has been on chemo since. Current on doxil/carboplatin --> last 16 days ago. Gets neulasta after treatments. Missed a followup tx 2 days ago, was scheduled to go back to [place] next week to [facility] cancer center and was goign to follow with [facility] at that facility. They redid the original [facility] pathology --> originally thought to be mucinous now though tot be clear cell. Pending repeat imaging after doxil/carboplatin. Migraines doing well on Ajovy. Just had on Sunday. Takes dapsone for congenital itching, works well for her. [facility]. Dr. Jacobs. Dr Villagran at [facility] locally. [facility] locally for onc care. Medical History: Reviewed Medications: Reviewed Surgical History: Reviewed Allergies: Reviewed Social History: No tobacco, Etoh use. No Rec drug or current MM use. has tried med marijuana for migraines in the past but exacerbated migraines. Code Status: Full Code, reviewed with pt and . Allergies Allergy/AdvReac Type Severity Reaction Status Date / Time doxycycline Allergy Intermediate RASH Verified 06/12/22 10:36 gluten AdvReac Intermediate Abdominal Verified 06/12/22 10:36 Pain lactose AdvReac Intermediate Abdominal Verified 06/12/22 10:36 Pain Penicillins AdvReac Intermediate Nausea, Verified 06/12/22 10:36 diarrhea Home Medications Medication Instructions Recorded Confirmed Type montelukast 10 mg tablet 10 mg PO QPM 11/05/19 06/12/22 History sertraline 100 mg tablet 200 mg PO QPM 11/05/19 06/12/22 History dapsone 25 mg tablet 25 mg PO BID 04/13/20 06/12/22 History famotidine 20 mg tablet 20 mg PO QAM 04/13/20 06/12/22 History cholecalciferol (vitamin D3) 50 50 mcg PO QAM 05/11/20 06/12/22 History mcg (2,000 unit) capsule fexofenadine 180 mg tablet 180 mg PO HS 05/11/20 06/12/22 History (Liana Allergy) fluticasone propionate 50 1 spray intranasal BID 05/11/20 06/12/22 History mcg/actuation nasal spray,suspension (Flonase Allergy Relief) topiramate 100 mg tablet (Topamax) 100 mg PO QPM 05/11/20 06/12/22 History beclomethasone dipropionate 40 1 inh inhalation QAM 05/12/20 06/12/22 History mcg/actuation HFA breath activated aerosol (Qvar RediHaler) fremanezumab-vfrm 225 mg/1.5 mL 225 mg subcut MONTHLY 05/12/20 06/12/22 History subcutaneous auto-injector (Ajovy) prochlorperazine maleate 5 mg 5 mg PO BID PRN Nausea 05/12/20 06/12/22 History tablet (Compazine) acetaminophen 325 mg tablet 325 mg PO QID PRN Pain 08/13/20 06/12/22 History (Tylenol) uvosxxepurafd-uzbuxuxdjdxsnxngor-ftrkqgeddnery 1 cap PO DAILY PRN MIGRAINES 08/13/20 06/12/22 History capsule oxycodone-acetaminophen 5 mg-325 1 tab PO Q4 PRN Pain 03/06/22 06/12/22 History mg tablet polyethylene glycol 3350 17 17 g PO DAILY 03/23/22 06/12/22 History gram/dose oral powder (Miralax) sennosides 8.6 mg capsule (senna) 8.6 mg PO DAILY 03/23/22 06/12/22 History levothyroxine 25 mcg tablet 25 mcg PO DAILY 04/12/22 06/12/22 History nystatin 100,000 unit/gram topical 1 applic topical .COMPLEX #60 grams 05/04/22 06/12/22 Rx powder ondansetron 8 mg disintegrating 8 mg PO Q8H 30 days #90 tabs 05/12/22 06/12/22 Rx tablet lidocaine HCl 2 % mucosal solution 8.75 ml mucous membrane QID throat 06/08/22 06/12/22 Rx (Lidocaine Viscous) pain 14 days #700 mL buspirone 5 mg tablet 5 mg PO BID #60 tabs 06/12/22 06/12/22 Rx lorazepam 0.5 mg tablet 0.5 mg PO BID PRN anxiety #45 tabs 06/12/22 Rx pantoprazole 40 mg tablet,delayed 40 mg PO BID 30 days #60 tabs 06/12/22 06/12/22 Rx release Past Med/Surg History Medical History Abdominal ascites Abdominal distension Anemia Anxiety and depression Ascites Asthma Asthma LAST USED RESCUE INHALER>BEEN A WHILE Bilateral tinnitus Colostomy present Environmental allergies Failure to thrive GERD (gastroesophageal reflux disease) Gluten intolerance History of anorexia nervosa History of ileus S/P HYSTERECTOMY Hypoglycemia Hypokalemia Hypokalemia Hypothyroidism Itching REASON FOR DAPSONE Large bowel obstruction Leukocytosis Low iron HX IRON INFUSION Migraine Ovarian cancer Ovarian cancer PRESENT DX>REASON FOR A-PORT (HAS RECIEVED 6 CYCLES OF CHEMO 1 YEAR AGO) Ovarian cancer Port-A-Cath in place SBO (small bowel obstruction) SBO (small bowel obstruction) Sinus tachycardia Small bowel obstruction Small bowel obstruction Surgical History H/O abdominal surgery AT [facility] 07/20/21 TO REMOVE CANCER IN ABDOMEN/COLON RESECTION WITH COLOSTOMY & INTRAPERITONEAL CHEMO H/O total hysterectomy + REMOVAL OVARIAN CYSTECTOMY History of colonoscopy History of esophagogastroduodenoscopy (EGD) History of knee surgery LEFT PATELLA REPAIR Nausea and vomiting after administration of anesthetic agent Port-A-Cath in place (08/30/21) Insertion Access Port with Fluoroscopy(Right) - [facility], 08/30/2021 [place] teeth removed Family History Grandmother (Maternal) Breast cancer Hypertension Grandfather (Maternal) No problems noted. Father Hearing loss Mother Hearing loss Allergies Asthma Sister Allergies Asthma Other No family history of adverse response to anesthesia No family history of bleeding disorder Denies family history of Heart disease Cancer Stroke Social History Smoking Status: Never smoker Second Hand Exposure: No; Hx Alcohol Use: No Hx Substance Use: No Preferred Language: Sami Communication Ability: Effective Visual Impairment: Limited Hearing Ability: Normal Processor Solid Propellant Required: No Beliefs That Will Affect Care: None marital status: Current Living Situation: Spouse current occupational status: employed and retired 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 Seatbelt Use: always Sunscreen Use: Yes Do you think of yourself as: straight/heterosexual Assistive Devices: None Review of Systems Review of Systems: All systems reviewed & are unremarkable except as noted in Subjective Physical Exam Physical Exam: General: A&Ox3. NAD. Cooperative. Appears chronically malnourished/chronically HEENT: Atraumatic, normocephalic. Vision/hearing intact. Mucous membranes dry Thorax: Port in place. No overlying warmth/erythema/tenderness Pulm: CTAB A&P. -wheezes, -rales, -rhonchi. Symmetrical chest rise. No increased work of breathing. No respiratory distress. Cardiac: Tachycardic, -mrg. Radial pulses intact and symmetrical. Abdominal: Ostomy in place, draining thin liquid output. Abdomen is nontender to palpation and without rebound/guarding Extremities: Warm, dry. Moves all extremities equally. No edema. Cap refill approximately 2 seconds. Results & Data Results & Data ([facility]) Vital Signs (Past 12 Hours) Vital Signs Temp Pulse Pulse Resp BP BP Pulse Ox 06/18/22 08:21 90 16 143/81 H 98 1127/22 06:07 37 C 108 H 20 125/84 97 O2 Del Method 06/18/22 08:21 Room Air 06/18/22 06:07 Room Air PG Care Time/CCT Total # of Minutes Spent Total Time Spent with Patient: Total time spent is greater than 50% in coordination of care (as documented) at patient's floor/unit and/or counseling patient: Coding Level of Care Code 16491 Initial Inpt Care Lvl 2 Diagnoses SBO (small bowel obstruction) K56.609 Ovarian cancer C56.9 Hypothyroidism E03.9 Colostomy present Z93.3 GERD (gastroesophageal reflux disease) K21.9 Hyponatremia E87.1 Ascites R18.8 Diffuse abdominal pain R10.84 Anxiety and depression F41.9; F32.9 Hx of intestinal obstruction Z87.19
--- NOTE | 2022-06-18 10:54 | XRay Report ---
XR chest 1V portable HISTORY: 57 years-old Female NGT placement status post placement of an enteric tube COMPARISON: CT abdomen and pelvis day, chest radiograph 05/13/2022 TECHNIQUE: AP view of the chest FINDINGS: Cardiomediastinal and hilar silhouettes are within normal limits. No pneumothorax, pleural effusion, airspace consolidation or overt pulmonary edema. Right IJ Zwslmt-n-Mlbu catheter distal tip is noted in the expected location of the mid SVC. Enteric tube distal tip courses into the stomach with distal tip outside the vcdyx-rg-exfa. The side-port is present in the gastric cardia. Distended air-filled stomach. Contrast opacified left renal collecting system. Bones appear grossly intact. IMPRESSION: 1. No acute processes of the chest. 2. Status post placement of an enteric tube with distal tip outside the [id number]-wd-fxsw and side port w ithin the gastric cardia. 3. Distended air-filled stomach. ACT 112: Negative or not required by law. The above report was generated using voice recognition software. It may contain grammatical, syntax o r spelling errors. Electronically signed by: Harley Calero M.D. 06/18/2022 10:33 AM
[2022-06-18] MEDS ORDERED: LORazepam 2 MG/1 ML VIAL IV PRN (14:13)
[2022-06-18] MEDS ORDERED: MoRPHine SULFATE 2 MG/ML CARP IV PRN (14:13)
[2022-06-18] MEDS ORDERED: POTASSIUM CHLORIDE / WTR 10 MEQ/100 ML PLCT IV ONE (14:13)
[2022-06-18] MEDS ORDERED: TPN/PPN CONSULT PHARMACY STA (14:13)
[2022-06-18] MEDS ORDERED: TPN/PPN CONSULT PHARMACY SCH (14:24)
[2022-06-18] MEDS: D5NSS + 20MEQ KCL 20 MEQ/1,000 ML BAG IV SCH ×2 (14:41→22:12)
[2022-06-18 16:08] LABS: Hematocrit (blood only) 20.4 % (34.1-44.9); Hemoglobin 6.9 g/dl (12.0-16.0); Mean Corpuscular Hgb Conc 33.8 g/dL (32.0-36.0); Mean Corpuscular Volume 100.5 fL (80.0-100.0); Mean Platelet Volume 12.7 fL (9.4-12.3); Platelet Count 26 K/uL (130-400); RDW Coefficient of Variation 13.8 % (11.5-14.5); Red Blood Count 2.03 M/uL (3.93-5.22)
[2022-06-18 16:21] LABS: Basophils # (auto) 0.02 K/uL (0-0.2); Basophils % (auto) 0.5 %; Dohle Bodies 1+; Hypochromasia Present; Immature Granulocytes # (auto) 0.03 K/uL (0.00-0.02); Immature Granulocytes % (auto) 0.8 %; Lymphocytes # (auto) 1.14 K/uL (1.2-3.4); Lymphocytes % (auto) 29.2 %; Monocytes # (auto) 0.22 K/uL (0.24-0.82); Monocytes % (auto) 5.6 %; Neutrophils # (auto) 2.49 K/uL (1.4-6.5); Neutrophils % (auto) 63.9 %; Polychromasia 1+; Tear Drop Cells 1+; Toxic Granulation 1+; Toxic Vacuolation 1+
[2022-06-18] MEDS ORDERED: SODIUM CHLORIDE 0.9% 250 ML IV PRN ×2 (16:29→17:50)
[2022-06-18 17:17] LABS: Appearance Urine Clear (Clear); Bacteria Urine Automated Negative (Negative); Bilirubin Urine Negative (Negative); Blood Urine Negative (Negative); Color Urine Yellow; Glucose Urine UA Negative (Negative); Ketones Urine 1+ (Negative); Leukocyte Esterase Urine Negative (Negative); Nitrite Urine Negative (Negative); Protein Urine Trace (Negative); RBC Urine Automated 0-4 /hpf (0-4); Specific Gravity Urine > 1.045 (1.000-1.030); Urobilinogen Urine Negative (Negative); pH Urine 5.5 (4.5-7.5)
[2022-06-18] MEDS: ONDANSETRON INJ 2 MG/ML 2 ML VIAL IV PRN (20:44)
[2022-06-18] MEDS: MoRPHine SULFATE 2 MG/ML CARP IV PRN (20:44)
[2022-06-18] MEDS: LORazepam 0.5 MG in SYRINGE 0 ML IV PRN (20:45)
[2022-06-18 21:43] LABS: Hematocrit (blood only) 25.6 % (34.1-44.9); Hemoglobin 8.5 g/dl (12.0-16.0); Mean Corpuscular Hemoglobin 31.7 pg (25.0-34.0); Mean Corpuscular Hgb Conc 33.2 g/dL (32.0-36.0); Mean Corpuscular Volume 95.5 fL (80.0-100.0); Mean Platelet Volume 12.5 fL (9.4-12.3); Platelet Count 28 K/uL (130-400); RDW Coefficient of Variation 16.3 % (11.5-14.5); Red Blood Count 2.68 M/uL (3.93-5.22); White Blood Count 4.36 K/ul (4.8-10.8)
[2022-06-18 22:13] LABS: Basophils # (auto) 0.02 K/uL (0-0.2); Basophils % (auto) 0.5 %; Immature Granulocytes # (auto) 0.06 K/uL (0.00-0.02); Immature Granulocytes % (auto) 1.4 %; Lymphocytes % (auto) 20.6 %; Monocytes # (auto) 0.26 K/uL (0.24-0.82); Neutrophils # (auto) 3.12 K/uL (1.4-6.5); Neutrophils % (auto) 71.5 %; Toxic Granulation 1+
[2022-06-19] MEDS: D5NSS + 20MEQ KCL 20 MEQ/1,000 ML BAG IV SCH ×2 (06:16→15:51)
[2022-06-19] MEDS: FLUTICASONE FUROATE 100MCG 14 PUFFS/INHALER INH SCH (08:43)
--- NOTE | 2022-06-19 09:12 | Hospitalist Progress Note ---
Date of Service June 19, 2022 Assessment & Plan (1) SBO (small bowel obstruction): Plan: 57-year-old female past medical history metastatic ovarian cancer with peritoneal carcinomatosis and ascites, recurrent SBO, GERD, asthma, anxiety/depression admitted for recurrent SBO. Recurrent partial small bowel obstruction - Multifactorial. W/ ascites now s/p therapeutic paracentesis, hxmultiple abdominal surgeries, adhesions, and intra-abdominal malignancy. Presented with abdominal pain and nausea, with CTAP showing partial small bowel obstruction. Continue conservative measures at this time with general surgery following. NGT placed, n.p.o. with chips/sips for comfort. Given history of significant depletion, weight loss, and hypoglycemia during admission will initiate PPN early and D5 with fluids pending orders Past surgical intervention deferred as patient had been receiving Avastin, she is now outside of the 4-week window should she fail medical therapy and surgical intervention be recommended (2) Ovarian cancer: Plan: High-grade ovarian carcinoma diagnosed 03/2020; has received combination of chemotherapy and initial surgery which was performed at [facility]. Has Neulasta Onpro device. Avastin last given 6 weeks ago. Baseline hemoglobin fluctuates from 7.510.0 in the setting of chemotherapy and malignancy, with associated thrombocytopenia to 28 on admission. Last c ompleted chemo carbop/doxil 16 days ago, suspect thrombocytopenia is 2/2 chemo toxic effect. - Last Avastin 6 weeks ago. - Paracentesis q4-6 weeks, performed today with output of about 1 L. (3) Severe protein-calorie malnutrition: Plan: - History of weight loss ( weighed 110 lbs prior to cancer diagnosis), hypoglycemia, several admissions for small bowel obstruction during which she was n.p.o. and required parenteral nutrition. - Will initiate PPN today with assistance by pharmacy/dietitian for caloric needs. (4) Hypothyroidism: Plan: Synthroid held while n.p.o. (5) Colostomy present: Plan: Intact, minimal liquid output for 2 days. Routine management. (6) GERD (gastroesophageal reflux disease): (7) Hyponatremia: Plan: - Resolved. In the setting of malnutrition. PPN and received IVF as described above. - Can also replete IV as needed. (8) Ascites: Plan: - s/p paracentesis ~1L removed today. - Follow up as needed, was getting q4-6 week paracentesis prior to this. (9) Diffuse abdominal pain: Plan: - Improved with paracentesis and NGT placement. - Toradol/Tylenol/morphine as needed with parameters. (10) Anxiety and depression: Plan: Hold BuSpar/sertraline while n.p.o. Continue Ativan 0.5 mg twice daily as needed converted to IV. (11) Anemia: Plan: - Chronic, present on admission. With past gastric occult test positive. Hemoglobin decreased to 6.9 after receiving IV fluids yesterday, is s/p 1 unit of packed red blood cells this admission with increase in hemoglobin to 9.5. Platelets 33, stable from 28 yesterday. Transfusion threshold of 10,000 unless significant bleeding. If clinically significant bleeding develops, transfuse platelets. Blood Transfusion threshold 7.0. Blood consent signed. CBC in AM. (12) Thrombocytopenia: Plan: see above. Plan DVT prophylaxis: Pharmacal prophylaxis deferred in the setting of thrombocytopenia CODE STATUS: Full code Disposition: Med/Surg as patient's Hgb improved from yesterday Diet: N.p.o. with PPN Admission and Anticipated Discharge Date Admission Date: June 18, 2022 Subjective This morning reports improvement in her abdominal pain following NG tube placement and after her paracentesis today. Complains of fatigue, but this is unchanged from the last several weeks. No acute abnormalities in vital signs overnight. Surgery saw patient and will not perform any interventions at this time. Denies chest pain, SOB, dizziness. Has NGT in place. Review of Systems Review of Systems: All systems reviewed & are unremarkable except as noted in Subjective Physical Exam Constitutional: + ill appearing and + thin; no acute distress Respiratory: normal respiratory effort, lungs clear to auscultation Cardiovascular: RRR, no murmur, no edema Gastrointestinal (Abdomen): Absent bowel sounds, abdomen soft, nondistended, nontender, does have ostomy in left lower quadrant with minimal amount of stool in bag NGT in place Skin: no rashes, warm and dry Psychiatric: A+Ox3, euthymic affect Results & Data Results & Data ([facility]) Vital Signs (Past 12 Hours) Vital Signs Temp Pulse Pulse Resp BP Pulse Ox O2 Del Method 06/19/22 07:47 36.9 C 78 18 102/65 98 Room Air 11/28/22 02:55 36.7 C 72 16 102/64 98 Room Air 06/18/22 22:40 37.2 C 72 16 100/60 96 Room Air 06/18/22 23:19 86 PG Care Time/CCT Total # of Minutes Spent Total Time Spent with Patient: Total time spent is greater than 50% in coordination of care (as documented) at patient's floor/unit and/or counseling patient: Coding Level of Care Code 68145 Subseq Hosp Care Lvl 3 Diagnoses SBO (small bowel obstruction) K56.609 Ovarian cancer C56.9 Severe protein-calorie malnutrition E43 Hypothyroidism E03.9 Colostomy present Z93.3 GERD (gastroesophageal reflux disease) K21.9 Hyponatremia E87.1 Ascites R18.8 Diffuse abdominal pain R10.84 Anxiety and depression F41.9; F32.9 Anemia D64.9 Thrombocytopenia D69.6
--- NOTE | 2022-06-19 09:17 | Surgery Consultation ---
Date of Consultation June 19, 2022 Assessment & Plan (1) SBO (small bowel obstruction): This is a 57yF with a PMH of metastatic L ovarian ca with total hysterectomy in 2019 and cytoreduction surgery and debulking in 07/12 at [place]. She has been admitted multiple times here with SBO, most recently 06/03-06/08 which was managed conservatively with NGT and bowel rest. Unfortunately her symptoms recurred ~2 days ago which brought her back into the hospital. A CT a/p was obtained that revealed distention of the stomach, proximal to mid small bowel appears stable compared to the 06/03/2022 exam. Findings are suspicious for a partial small bowel obstruction. Along with ascites with peritoneal thickening and peritoneal carcinomatosis redemonstrated. Patient did undergo paracentesis today, says ~1L removed. On exam patient's abdomen is soft, non distended, no overtly tender at this time. Has a small amount of stool in her pouch, but it hasn't been emptied in >[address] with some improvement. We have no plans for acute surgical intervention at this time. We will follow and hope she gets through this with conservative measures. Will discuss other options with Dr. Celeste. Patient seen. Already feeling better since NG tube placement. This is been recurring frequently over the last 6 months or so. I had a discussion with her today regarding consideration for a gastrostomy tube. Potentially this could even be used at home for decompression if needed. We discussed potential risks. Her sister is apparently a nurse who could help her at home with this. It would certainly eliminate her need for future NG tube and may decrease or prevent some future admissions or ER visits. They are going to consider it. Certainly surgery is not an option at this point in time and normally her bowel obstructions resolved with conservative management. We will continue to monitor her progress. History of Present Illness Attending Physician: Suzi Burden, DO History of Present Illness This is a 57yF with a PMH of metastatic L ovarian ca with total hysterectomy in 2019 and cytoreduction surgery in 07/12 at [place]. She has been admitted multiple times here with SBO, most recently -06/08 which was managed conservatively. The patient states she was doing okay up until a couple says ago she noted low output from her ostomy. She prophylactically backed herself down to clear liquids. Unfortunately she developed bloating, abdominal pressure, and lower abdominal discomfort which prompted her to come into the ER for further evaluation. A CT a/p was obtained that revealed distention of the stomach, proximal to mid small bowel appears stable compared to the 06/03/2022 exam. Findings are suspicious for a partial small bowel obstruction. Along with ascites with peritoneal thickening and peritoneal carcinomatosis redemonstrated. Patient reports nausea, no emesis. Last chemo was 06/04. States she is suppose to go to [place] in 1.5 weeks for an imaging study with further chemo recs to be made at that time. She is feeling frustrated that they are recurring in short periods of time. Allergies Allergy/AdvReac Type Severity Reaction Status Date / Time doxycycline Allergy Intermediate RASH Verified 06/12/22 10:36 gluten AdvReac Intermediate Abdominal Verified 06/12/22 10:36 Pain lactose AdvReac Intermediate Abdominal Verified 06/12/22 10:36 Pain Penicillins AdvReac Intermediate Nausea, Verified 06/12/22 10:36 diarrhea Home Medications Medication Instructions Recorded Confirmed Type montelukast 10 mg tablet 10 mg PO QPM 11/05/19 06/12/22 History sertraline 100 mg tablet 200 mg PO QPM 11/05/19 06/12/22 History dapsone 25 mg tablet 25 mg PO BID 04/13/20 06/12/22 History famotidine 20 mg tablet 20 mg PO QAM 04/13/20 06/12/22 History cholecalciferol (vitamin D3) 50 50 mcg PO QAM 05/11/20 06/12/22 History mcg (2,000 unit) capsule fexofenadine 180 mg tablet 180 mg PO HS 05/11/20 06/12/22 History (Liana Allergy) fluticasone propionate 50 1 spray intranasal BID 05/11/20 06/12/22 History mcg/actuation nasal spray,suspension (Flonase Allergy Relief) topiramate 100 mg tablet (Topamax) 100 mg PO QPM 05/11/20 06/12/22 History beclomethasone dipropionate 40 1 inh inhalation QAM 05/12/20 06/12/22 History mcg/actuation HFA breath activated aerosol (Qvar RediHaler) fremanezumab-vfrm 225 mg/1.5 mL 225 mg subcut MONTHLY 05/12/20 06/12/22 History subcutaneous auto-injector (Ajovy) prochlorperazine maleate 5 mg 5 mg PO BID PRN Nausea 05/12/20 06/12/22 History tablet (Compazine) acetaminophen 325 mg tablet 325 mg PO QID PRN Pain 08/13/20 06/12/22 History (Tylenol) rhbagqhmmdaqw-ipecnwzlszxjcpelww-rjxijnqerbonq 1 cap PO DAILY PRN MIGRAINES 08/13/20 06/12/22 History capsule oxycodone-acetaminophen 5 mg-325 1 tab PO Q4 PRN Pain 03/06/22 06/12/22 History mg tablet polyethylene glycol 3350 17 17 g PO DAILY 03/23/22 06/12/22 History gram/dose oral powder (Miralax) sennosides 8.6 mg capsule (senna) 8.6 mg PO DAILY 03/23/22 06/12/22 History levothyroxine 25 mcg tablet 25 mcg PO DAILY 04/12/22 06/12/22 History nystatin 100,000 unit/gram topical 1 applic topical .COMPLEX #60 grams 05/04/22 06/12/22 Rx powder ondansetron 8 mg disintegrating 8 mg PO Q8H 30 days #90 tabs 05/12/22 06/12/22 Rx tablet lidocaine HCl 2 % mucosal solution 8.75 ml mucous membrane QID throat 06/08/22 06/12/22 Rx (Lidocaine Viscous) pain 14 days #700 mL buspirone 5 mg tablet 5 mg PO BID #60 tabs 06/12/22 06/12/22 Rx lorazepam 0.5 mg tablet 0.5 mg PO BID PRN anxiety #45 tabs 06/12/22 Rx pantoprazole 40 mg tablet,delayed 40 mg PO BID 30 days #60 tabs 06/12/22 06/12/22 Rx release Patient History Medical History (Updated 06/19/22 @ 17:12 by Suzi Burden DO) Abdominal ascites Abdominal distension Anemia Anxiety and depression Ascites Asthma Asthma LAST USED RESCUE INHALER>BEEN A WHILE Bilateral tinnitus Colostomy present Environmental allergies Failure to thrive GERD (gastroesophageal reflux disease) Gluten intolerance History of anorexia nervosa History of ileus S/P HYSTERECTOMY Hypoglycemia Hypokalemia Hypokalemia Hypothyroidism Itching REASON FOR DAPSONE Large bowel obstruction Leukocytosis Low iron HX IRON INFUSION Migraine Ovarian cancer Ovarian cancer PRESENT DX>REASON FOR A-PORT (HAS RECIEVED 6 CYCLES OF CHEMO 1 YEAR AGO) Ovarian cancer Port-A-Cath in place SBO (small bowel obstruction) SBO (small bowel obstruction) Sinus tachycardia Small bowel obstruction Small bowel obstruction Surgical History H/O abdominal surgery AT [place] 07/20/21 TO REMOVE CANCER IN ABDOMEN/COLON RESECTION WITH COLOSTOMY & INTRAPERITONEAL CHEMO H/O total hysterectomy + REMOVAL OVARIAN CYSTECTOMY History of colonoscopy History of esophagogastroduodenoscopy (EGD) History of knee surgery LEFT PATELLA REPAIR Nausea and vomiting after administration of anesthetic agent Port-A-Cath in place (08/30/21) Insertion Access Port with Fluoroscopy(Right) - Ilan Vee DO 08/30/2021 [place] teeth removed Family History Grandmother (Maternal) Breast cancer Hypertension Grandfather (Maternal) No problems noted. Father Hearing loss Mother Hearing loss Allergies Asthma Sister Allergies Asthma Other No family history of adverse response to anesthesia No family history of bleeding disorder Denies family history of Heart disease Cancer Stroke Social History Smoking Status: Never smoker Second Hand Exposure: No; Do You Dip or Chew Tobacco: No; Tobacco Cessation Education Requested by Patient: No Hx Alcohol Use: No Hx Substance Use: No Preferred Language: [place] Communication Ability: Effective Visual Impairment: Limited Hearing Ability: Normal Dimpling Machine Operator Required: No Beliefs That Will Affect Care: None marital status: Current Living Situation: Spouse current occupational status: employed and retired 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 Seatbelt Use: always Sunscreen Use: Yes Do you think of yourself as: straight/heterosexual Assistive Devices: None Review of Systems Constitutional: no fever and no chills Respiratory: no dyspnea Gastrointestinal: + bloating and + nausea; no vomiting decreased output from ostomy Physical Exam Physical Exam: awake/alert, no acute distress Constitutional: + thin Respiratory: normal respiratory effort Gastrointestinal (Abdomen): Inspection/Auscultation: abdomen not distended Percussion/Palpation: abdomen soft; abdomen nontender + ostomy in LLQ, some stool in bag (but was not emptied over last 24 hours) Results & Data ([facility]) Vital Signs (Past 12 Hours) Vital Signs Temp Pulse Pulse Resp BP Pulse Ox O2 Del Method 06/19/22 07:47 36.9 C 78 18 102/65 98 Room Air 06/19/22 02:55 36.7 C 72 16 102/64 98 Room Air 06/18/22 22:40 37.2 C 72 16 100/60 96 Room Air 06/18/22 23:19 86 Diagnostic Findings ABDOMEN AND PELVIS CT WITH IV CONTRAST CT DOSE: 249.32 mGy.cm HISTORY: Acute generalized abdominal pain with possible small bowel obstruction . Prior partial small bowel resection with left lower quadrant colostomy colostomy, abd pain, SBO? TECHNIQUE: Multiaxial CT images of the abdomen and pelvis were performed following the IV administration of 80 cc of Optiray, A dose lowering technique was utilized adhering to the principles of ALARA. COMPARISON STUDY: CT abdomen and pelvis 06/03/2022 FINDINGS: Trace pleural effusions. Clear lung bases. No pneumatosis or pneumoperitoneum identified. Spleen measures 13.9 cm in length. Unremarkable pancreas and adrenal glands. Distended gallbladder. Unchanged appearance of the liver. Patency of the hepatic and portal veins. Mild bilateral pelvocaliectasis without luz elena hydronephrosis. Symmetric enhancement of the kidneys. Mild nons pecific urinary bladder wall thickening with partial distention. Ascites with peritoneal carcinomatosis redemonstrated. Stable 8 mm nodule within the left hemipelvis on image 294. Peritoneal thickening and enhancement. Small hiatal hernia. Decreased distention of the distal esophagus compared to the prior study. Distention of the stomach, proximal to mid small bowel is redemonstrated and appears similar to the prior exam. Prior partial bowel resection with left lower quadrant colostomy. Unremarkable soft tissues. No acute fracture. IMPRESSION: 1. Prior partial bowel resection with left lower quadrant colostomy. 2. Distention of the stomach, proximal to mid small bowel appears stable compared to the 06/03/2022 exam. Findings are suspicious for a partial small bowel obstruction. 3. Ascites with peritoneal thickening and peritoneal carcinomatosis redemonstrated. 4. Splenomegaly. 5. Additional findings as above. ACT 112: Negative or not required by law. The above report was generated using voice recognition software. It may contain grammatical, syntax or spelling errors. Electronically signed by: Harley Calero M.D. 06/18/2022 9:11 AM PG Care Time/CCT Total # of Minutes Spent Total Time Spent with Patient: Total time spent is greater than 50% in coordination of care (as documented) at patient's floor/unit and/or counseling patient: Coding Level of Care Code 00898 Inpt Consult Level 5 Diagnoses SBO (small bowel obstruction) K56.609
[2022-06-19] MEDS: MoRPHine SULFATE 2 MG/ML CARP IV PRN ×2 (10:10→20:36)
[2022-06-19 10:18] LABS: Hematocrit (blood only) 28.6 % (34.1-44.9); Hemoglobin 9.5 g/dl (12.0-16.0); Mean Platelet Volume 10.9 fL (9.4-12.3); Platelet Count 33 K/uL (130-400); White Blood Count 3.04 K/ul (4.8-10.8)
[2022-06-19 10:29] LABS: Prothrombin Time 11.1 Seconds (9.0-12.0)
--- NOTE | 2022-06-19 10:40 | Ultrasound Report ---
PARACENTESIS UNDER ULTRASOUND GUIDANCE CLINICAL HISTORY: Abdominal ascites COMPARISON STUDY: Abdominal CT dated 06/18/2022. PROCEDURE: The risks, benefits, and alternatives to the procedure were discussed with the patient who voiced understanding. Written informed consent was obtained. Following real-time ultrasound localiza tion of a suitable pocket of fluid in the left lower quadrant, the abdomen was prepped and draped in the usual sterile fashion. The skin and soft tissues were anesthetized with 1% lidocaine. The sheathe d paracentesis needle was inserted and approximately 1 liter of straw-colored ascitic fluid was remov ed by vacuum suction. The procedure was well tolerated and without immediate complication. The patien t left the department in satisfactory condition. IMPRESSION: Successful ultrasound-guided paracentesis with removal of approximately 1 liter of asciti c fluid. ACT 112: Negative or not required by law. Electronically signed by: Jonathan Leo M.D. 06/19/2022 10:39 AM
[2022-06-19 10:42] LABS: Albumin Globulin Ratio 1.5 (0.9-2); Albumin Level 3.5 gm/dl (3.4-5.0); BUN Creatinine Ratio 11.8 (10-20); Bilirubin,Total 0.4 mg/dl (0.2-1.0); Calcium 8.7 mg/dl (8.5-10.1); Est GFR (African American) 125.5 ml/min; Est GFR (Non-African American) 108.3 ml/min; Globulin 2.3 gm/dl (2.5-4.0); Magnesium 1.6 mg/dl (1.7-2.4); Phosphorus 3.1 mg/dl (2.5-4.9); Potassium 3.8 mmol/L (3.5-5.1); Total Protein 5.8 gm/dl (6.0-8.3)
[2022-06-19 10:43] LABS: Mean Corpuscular Hemoglobin 31.7 pg (25.0-34.0); Mean Corpuscular Hgb Conc 33.2 g/dL (32.0-36.0); Mean Corpuscular Volume 95.3 fL (80.0-100.0); RDW Coefficient of Variation 17.5 % (11.5-14.5); RDW Standard Deviation 61.4 fL (36.4-46.3)
[2022-06-19] MEDS ORDERED: ACETAMINOPHEN 1,000 MG/100 ML VIAL IV PRN (11:10)
[2022-06-19] MEDS: MAGNESIUM SULFATE / D5W 1 GM/100 ML BAG IV SCH ×4 (11:26→17:35)
[2022-06-19] MEDS: ONDANSETRON INJ 2 MG/ML 2 ML VIAL IV PRN ×2 (12:12→20:36)
[2022-06-19] MEDS: KETOROLAC TROMETHAMINE 15 MG/ML VIAL IV PRN ×2 (12:12→18:14)
[2022-06-19] MEDS: LORazepam 0.5 MG in SYRINGE 0 ML IV PRN ×2 (13:14→21:28)
--- NOTE | 2022-06-19 15:26 | Pharmacy Report ---
Pharmacy PN Initial Consult - Date of Service June 19, 2022 - Scope Pharmacy has been consulted to manage parenteral nutrition orders and order appropriate labs. As part of the Nutrition Support Team guidelines, pharmacy will work in conjunction with dietary when determining the patients caloric needs. - Subjective The patient is a 57 year old F admitted on 06/18/22 11:28 for RECURRENT SBO, ANEMIA. Patient is to receive parenteral nutrition for severe malnutirtion and SBO. Pertinent PMH: Metastatic ovarian CA with ascites - Objective Height: 5 ft 4 in Weight: 36.1 kg Diet: NPO Intake & Output (Last 24Hrs): Intake & Output 06/17/22 06/18/22 06/19/22 06/20/22 06:59 06:59 06:59 06:59 Intake Total 3670 / 3670 440 / 440 Output Total 2200 / 2200 800 / 800 Balance 1470 / 1470 -360 / -360 Weight 36.1 kg 36.1 kg 36.1 kg Laboratory Data (Last 24 Hrs):: 06/19/22 10:06 Sodium 145 D Potassium 3.8 Chloride 109 H Carbon Dioxide 31 BUN 6 Creatinine 0.51 L Glucose 88 Calcium 8.7 Phosphorus 3.1 Magnesium 1.6 L Total Bilirubin 0.4 AST 16 ALT 8 Alkaline Phosphatase 83 Albumin 3.5 Triglycerides 123 Nutrition Assessment:: Please refer to the Notes section of the EMR for the most 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 - Assessment * Patient with very low body weight. Dietitian recommendations from yesterday reviewed. Discussed with Jorje Michael today and revised slightly - plan is to start using *peripheral* Clinimix form (due to lower dextrose content and risk of refeeding), administer it via a central line, start at 1680 mL of Clinimix (70 mL/hr) and only give lipids every other day (due to low body weight). Risk of refeeding may be high, but given stable electrolytes from yesterday to today despite a dextrose infusion that will have contributed 144 g of CHO over 24 hours, this is not deemed highly likely. May switch to central Clinimix formulation soon, depending on tolerability and electrolyte trends. - Plan For day 1 of PN administration, the following will be ordered: Macronutrients Amino acids 71 grams/day Dextrose 84 grams/day Lipids 50 grams Sunday, Sunday, Sunday only Micronutrients Sodium chloride 30 mEq Sodium acetate 100 mEq Potassium phosphate 21 mMol Magnesium sulfate 8.12 mEq Calcium gluconate 4.65 mEq Multivitamins 10 mL Trace Elements 1 mL Additional additives: thiamine 100 mg Total volume 1773 mL to be infused over 24 hrs will provide 1071 kcal/day Labs to be ordered per PN order protocol Pharmacy will follow and adjust parenteral nutrition orders on a daily basis. Thank you.
[2022-06-19] MEDS ORDERED: PERIPHERAL TPN IV SCH (16:00)
[2022-06-19] MEDS ORDERED: D5W IV SCH (16:00)
[2022-06-19] MEDS ORDERED: AMINO ACIDS 4.25% IV SCH (16:00)
[2022-06-19] MEDS ORDERED: CLINOLIPID 20% IV FAT EMULSION 250 ML IV SCH (16:00)
[2022-06-19] MEDS ORDERED: FAMOTIDINE 20 MG in SYRINGE 3 ML IV ONE (21:00)
[2022-06-19] MEDS ORDERED: STOP CLINOLIPID SCH (22:00)
[2022-06-20] MEDS: KETOROLAC TROMETHAMINE 15 MG/ML VIAL IV PRN ×4 (00:28→19:09)
[2022-06-20 07:10] LABS: Hemoglobin 7.8 g/dl (12.0-16.0); Mean Platelet Volume 11.2 fL (9.4-12.3); Platelet Count 35 K/uL (130-400); White Blood Count 2.65 K/ul (4.8-10.8)
--- NOTE | 2022-06-20 07:16 | Hospitalist Progress Note ---
Date of Service June 20, 2022 Assessment & Plan (1) SBO (small bowel obstruction): Plan: 57-year-old female past medical history metastatic ovarian cancer with peritoneal carcinomatosis and ascites, recurrent SBO, GERD, asthma, anxiety/depression admitted for recurrent SBO. Recurrent partial small bowel obstruction - Multifactorial. W/ ascites now s/p therapeutic paracentesis, hxmultiple abdominal surgeries, adhesions, and intra-abdominal malignancy. - Presented with abdominal pain and nausea, with CTAP showing partial small bowel obstruction. NGT placed, n.p.o. with chips/sips for comfort. - For EGD with PEG tube placement tomorrow by Dr. Celeste. Given history of significant depletion, weight loss, and hypoglycemia during admission will continue parenteral nutrition. (2) Anemia: Plan: - Chronic, present on admission. With past gastric occult test positive. Hemoglobin decreased to 6.9 after receiving IV fluids on 06/18. Hemoglobin is 7.8 today without evidence of active bleeding. Platelets 35, stable from 33 yesterday. Transfusion threshold of 10,000 unless significant bleeding. If clinically significant bleeding develops, transfuse platelets. Blood Transfusion threshold 7.0. Blood consent signed. CBC in AM. (3) Ovarian cancer: Plan: High-grade ovarian carcinoma diagnosed 03/2020; has received combination of chemotherapy and initial surgery which was performed at [facility]. Has Neulasta Onpro device. Avastin last given 6 weeks ago. Baseline hemoglobin fluctuates from 7.510.0 in the setting of chemotherapy and malignancy, with associated thrombocytopenia to 28 on admission. Last completed chemo carbop/doxil 16 days ago, suspect thrombocytopenia is 2/2 chemo toxic effect. - Last Avastin 6 weeks ago. - Therapeutic paracentesis q4-6 weeks, performed 06/19 with output of about 1 L. - Dr. Naylor oncology aware of patient's admission, will follow peripherally unless oncologic needs arise while inpatient. (4) Severe protein-calorie malnutrition: Plan: - History of weight loss ( weighed 110 lbs prior to cancer diagnosis), hypoglycemia, several admissions for small bowel obstruction during which she was n.p.o. and required parenteral nutrition. - Continue parenteral nutrition with assistance by pharmacy/dietitian for caloric needs. (5) Hypokalemia: Plan: - Potassium of 3.3 today from 3.8 yesterday. - Patient is receiving parenteral nutrition, but will also give K riders total of 40 MEQ IV today with repeat BMP in the morning. (6) Hypothyroidism: Plan: Synthroid held while n.p.o. (7) Colostomy present: Plan: Intact, minimal liquid output for 2 days. Routine management. (8) GERD (gastroesophageal reflux disease): Plan: PPI IV twice daily. (9) Hyponatremia: Plan: - Resolved. In the setting of malnutrition. PPN and received IVF as described above. (10) Ascites: Plan: - s/p paracentesis ~1L removed 06/19. - Follow up as needed, was getting q4-6 week paracentesis prior to this. (11) Diffuse abdominal pain: Plan: - Improved with paracentesis and NGT placement. - Toradol/Tylenol/Dilaudid as needed with parameters. (12) Anxiety and depression: Plan: Hold BuSpar/sertraline while n.p.o. Continue Ativan 0.5 mg twice daily as needed converted to IV. (13) Thrombocytopenia: Plan: see above. Plan DVT prophylaxis: Pharmacal prophylaxis deferred in the setting of thrombocytopenia CODE STATUS: Full code Disposition: Med/Surg as patient's Hgb improved from yesterday Diet: N.p.o. with PPN Admission and Anticipated Discharge Date Admission Date: June 18, 2022 Subjective No acute events overnight. Patient with continued fairly severe sore throat due to NG tube. She was seen by surgery who is considering G-tube for venting to be able to remove the NG tube. She is feeling dehydrated today, is currently on parenteral nutrition and n.p.o. due to SBO. No fevers overnight. Review of Systems Review of Systems: All systems reviewed & are unremarkable except as noted in Subjective Physical Exam Constitutional: + ill appearing and + thin; no acute distress Respiratory: normal respiratory effort, lungs clear to auscultation Cardiovascular: RRR, no murmur, no edema Skin: no rashes, warm and dry Psychiatric: A+Ox3, euthymic affect Results & Data Results & Data ([facility]) Vital Signs (Past 12 Hours) Vital Signs Temp Pulse Resp BP Pulse Ox O2 Del Method 06/19/22 23:31 37.1 C 86 18 123/72 96 Room Air PG Care Time/CCT Total # of Minutes Spent Total Time Spent with Patient: Total time spent is greater than 50% in coordination of care (as documented) at patient's floor/unit and/or counseling patient: Coding Level of Care Code 64226 Subseq Hosp Care Lvl 3 Diagnoses SBO (small bowel obstruction) K56.609 Anemia D64.9 Ovarian cancer C56.9 Severe protein-calorie malnutrition E43 Hypokalemia E87.6 Hypothyroidism E03.9 Colostomy present Z93.3 GERD (gastroesophageal reflux disease) K21.9 Hyponatremia E87.1 Ascites R18.8 Diffuse abdominal pain R10.84 Anxiety and depression F41.9; F32.9 Thrombocytopenia D69.6
[2022-06-20 08:16] LABS: Mean Corpuscular Hemoglobin 31.8 pg (25.0-34.0); Mean Corpuscular Hgb Conc 32.5 g/dL (32.0-36.0); Platelet Estimate Decreased (Normal); RDW Coefficient of Variation 16.6 % (11.5-14.5); RDW Standard Deviation 59.3 fL (36.4-46.3); Red Blood Count 2.45 M/uL (3.93-5.22)
[2022-06-20] MEDS ORDERED: COUGH DROP (SUGAR FREE) LOZ 24 LOZ/1 BOX BUCCAL PRN (08:49)
--- NOTE | 2022-06-20 08:49 | Surgery Progress Note ---
Date of Service June 20, 2022 Assessment & Plan (1) SBO (small bowel obstruction): Plan: Pt here with recurrent SBO in the setting of metastatic ovarian ca with peritoneal carcinomatosis KUB this AM is pending Still reports some nausea. No pain. No ostomy fxn yet Cepacol + spray ordered for sore throat Considering g-tube for venting purposes, she wants to speak w/ her oncologist prior to making decision Continue NGT for now until return of bowel function As above. Patient seen. I did offer to place a gastrostomy tube tomorrow or down the road as an outpatient. She is going to talk with her physicians and make a decision. Admission and Anticipated Discharge Date Admission Date: June 18, 2022 Subjective Patient said she didn't sleep well last night. Biggest complaint otherwise is sore throat. Ordered ppi for reflux. Denies pain. Some nausea. No output in colostomy. Wants to think on g-tube and talk it over with her oncologist Physical Exam Physical Exam: awake/alert, no distress Gastrointestinal (Abdomen): Inspection/Auscultation: abdomen not distended Percussion/Palpation: abdomen soft no output in bag Results & Data ([facility]) Vital Signs (Past 12 Hours) Vital Signs Temp Pulse Resp BP BP Pulse Ox O2 Del Method 06/20/22 07:56 37.2 C 93 H 16 101/66 96 Room Air 06/19/22 23:31 37.1 C 86 18 123/72 96 Room Air PG Care Time/CCT Total # of Minutes Spent Total Time Spent with Patient: Total time spent is greater than 50% in coordination of care (as documented) at patient's floor/unit and/or counseling patient: Coding Level of Care Code 65953 Subseq Hosp Care Lvl 2 Diagnoses SBO (small bowel obstruction) K56.609
[2022-06-20 09:12] LABS: BUN Creatinine Ratio 31.8 (10-20); Calcium 7.8 mg/dl (8.5-10.1); Creatinine Clr Calc Pharmacy 82.3 ml/min; Est GFR (African American) 131.7 ml/min; Est GFR (Non-African American) 113.6 ml/min; Magnesium 2.1 mg/dl (1.7-2.4); Phosphorus 3.8 mg/dl (2.5-4.9); Potassium 3.3 mmol/L (3.5-5.1)
[2022-06-20] MEDS: FLUTICASONE FUROATE 100MCG 14 PUFFS/INHALER INH SCH (09:33)
[2022-06-20] MEDS: ONDANSETRON INJ 2 MG/ML 2 ML VIAL IV PRN ×2 (09:51→21:09)
[2022-06-20] MEDS: POTASSIUM CHLORIDE / WTR 10 MEQ/100 ML PLCT IV SCH ×4 (09:54→13:16)
[2022-06-20] MEDS: LORazepam 0.5 MG in SYRINGE 0 ML IV PRN ×2 (10:03→21:25)
--- NOTE | 2022-06-20 10:40 | XRay Report ---
KUB CLINICAL HISTORY: Small bowel obstruction. FINDINGS: An AP, portable, supine abdominal radiograph is compared to study dated 06/05/2022 and belkis elated with abdominal CT dated 06/18/2022. An enteric tube projects below the diaphragm over the stom ach. There is mild gaseous distention of the small bowel loops comment appears improved as compared t o the recent CT scan. No evidence of intraperitoneal free air seen on this supine image. Suture mater ial and surgical clips are noted in the pelvis. There are numerous pelvic phleboliths. The skeletal s tructures are osteopenic and appear intact. IMPRESSION: 1. An enteric tube is in place. 2. There is mild persistent gaseous distention of the small bowel loops. This appears improved as com pared to the 06/18/2022 examination and likely represents resolving bowel obstruction. Clinical corre lation will be required. Electronically signed by: Jonathan Leo M.D. 06/20/2022 10:39 AM
[2022-06-20] MEDS ORDERED: METOCLOPRAMIDE HCL INJ 5 MG/ML 2 ML VIAL IV PRN (15:44)
[2022-06-20] MEDS ORDERED: D5W IV SCH (16:00)
[2022-06-20] MEDS ORDERED: PERIPHERAL TPN IV SCH (16:00)
[2022-06-20] MEDS ORDERED: AMINO ACIDS 4.25% IV SCH (16:00)
[2022-06-20] MEDS ORDERED: FIRST - Mouthwash BLM 119 ML PO PRN (16:02)
[2022-06-20] MEDS: HYDROmorphone INJ 1 MG/ML SYRINGE IV PRN (16:43)
[2022-06-20] MEDS: PANTOprazole 40 MG in SYRINGE 0 ML IV SCH (20:40)
[2022-06-21] MEDS: KETOROLAC TROMETHAMINE 15 MG/ML VIAL IV PRN ×3 (03:29→20:40)
[2022-06-21] MEDS ORDERED: CLINDAMYCIN/D5W 900 MG/50 ML BAG IV SCH (06:00)
--- NOTE | 2022-06-21 07:53 | Hospitalist Progress Note ---
Date of Service June 20, 2022 Assessment & Plan (1) Ovarian cancer: Plan: While there was some initial marker response to the current chemotherapy combination of Doxil and carboplatinum, most recent CA125 does show some rise. Admittedly that may reflect in part chemotherapy interruptions with her recurrent obstructions but she certainly seems to have significant ongoing disease burden in the abdomen, significant morbidity as a result, and overall performance status is declining to 3/4. I have separately more completely detailed current status and cancer center notes and we will try to have 1 of those scanned to the [facility] chart. At this time, I am concerned that further aggressive chemotherapy may cause more harm than good and is significantly compromised patient. We are sending all data to [facility] so that they may comment as well as they have been the primary oncologic resource for care plans up to this point. Muriel herself is acknowledging that she is quite physically and emotionally exhausted and is starting to strongly consider a pure palliative care approach going forward. Certainly agree that venting gastrostomy will be palliative in the immediate and most significant discomfort she has of the recurrent nasogastric tube placement and would proceed with Plan Venting gastrostomy Await further comment from MD [facility] but believe that a pure palliative care approach may be the best option for preserving what we can of short-term quality of life and ironically may stabilize quantity of life and avoiding excessive and potentially life-threatening complications that might result from further aggressive chemotherapy Admission and Anticipated Discharge Date Admission Date: June 18, 2022 Subjective I met unofficially with Muriel and her sister today to review her oncologic situation, prognosis, and treatment options Results & Data Results & Data ([facility]) Vital Signs (Past 12 Hours) Vital Signs Temp Pulse Resp BP Pulse Ox O2 Del Method 06/20/22 23:30 37.2 C 90 18 115/73 98 Room Air 06/20/22 22:37 Room Air PG Care Time/CCT Total # of Minutes Spent Total Time Spent with Patient: Total time spent is greater than 50% in coordination of care (as documented) at patient's floor/unit and/or counseling patient: Coding Level of Care Code None Diagnoses Ovarian cancer C56.9
--- NOTE | 2022-06-21 08:27 | Anesthesiology Consultation ---
Date of Service June 21, 2022 Assessment & Plan (1) Encounter for pre-operative examination: Chart Review Chart Review: Acceptable Risk for Surgery and Patient NOT seen in Pre Admission Testing Consults Requested none History Surgery Operation Date: 06/21/22 07:00 Proposed Procedures p Esophagogastroduodenoscopy with Peg Tube Placement - Manpreet Celeste, DO Height/Weight Height: 5 ft 4 in Weight: 36.1 kg Allergies Allergy/AdvReac Type Severity Reaction Status Date / Time doxycycline Allergy Intermediate RASH Verified 06/12/22 10:36 gluten AdvReac Intermediate Abdominal Verified 06/12/22 10:36 Pain lactose AdvReac Intermediate Abdominal Verified 06/12/22 10:36 Pain Penicillins AdvReac Intermediate Nausea, Verified 06/12/22 10:36 diarrhea Medications Home Medications Medication Instructions Recorded Confirmed Last Taken montelukast 10 mg tablet 10 mg PO QPM 11/05/19 06/12/22 06/01/22 sertraline 100 mg tablet 200 mg PO QPM 11/05/19 06/12/22 06/01/22 dapsone 25 mg tablet 25 mg PO BID 04/13/20 06/12/22 06/02/22 08:00 famotidine 20 mg tablet 20 mg PO QAM 04/13/20 06/12/22 06/02/22 cholecalciferol (vitamin D3) 50 50 mcg PO QAM 05/11/20 06/12/22 06/02/22 mcg (2,000 unit) capsule fexofenadine 180 mg tablet 180 mg PO HS 05/11/20 06/12/22 06/01/22 ([facility]) fluticasone propionate 50 1 spray intranasal BID 05/11/20 06/12/22 06/02/22 08:00 mcg/actuation nasal spray,suspension (Flonase Allergy Relief) topiramate 100 mg tablet (Topamax) 100 mg PO QPM 05/11/20 06/12/22 06/01/22 beclomethasone dipropionate 40 1 inh inhalation QAM 05/12/20 06/12/22 06/02/22 mcg/actuation HFA breath activated aerosol (Qvar RediHaler) fremanezumab-vfrm 225 mg/1.5 mL 225 mg subcut MONTHLY 05/12/20 06/12/22 04/11/22 subcutaneous auto-injector (Ajovy) prochlorperazine maleate 5 mg 5 mg PO BID PRN Nausea 05/12/20 06/12/22 04/11/22 21:00 tablet (Compazine) acetaminophen 325 mg tablet 325 mg PO QID PRN Pain 08/13/20 06/12/22 04/09/22 (Tylenol) vtedcjgnlmefz-gtipjropmojhqgyvxr-qpnjksnhdzndk 1 cap PO DAILY PRN MIGRAINES 08/13/20 06/12/22 04/11/22 21:00 capsule oxycodone-acetaminophen 5 mg-325 1 tab PO Q4 PRN Pain 03/06/22 06/12/22 03/14/22 mg tablet polyethylene glycol 3350 17 17 g PO DAILY 03/23/22 06/12/22 06/02/22 gram/dose oral powder (Miralax) sennosides 8.6 mg capsule (senna) 8.6 mg PO DAILY 03/23/22 06/12/22 06/02/22 levothyroxine 25 mcg tablet 25 mcg PO DAILY 04/12/22 06/12/22 06/02/22 nystatin 100,000 unit/gram topical 1 applic topical .COMPLEX #60 grams 05/04/22 06/12/22 Unknown powder ondansetron 8 mg disintegrating 8 mg PO Q8H 30 days #90 tabs 05/12/22 06/12/22 06/02/22 tablet lidocaine HCl 2 % mucosal solution 8.75 ml mucous membrane QID throat 06/08/22 06/12/22 Unknown (Lidocaine Viscous) pain 14 days #700 mL buspirone 5 mg tablet 5 mg PO BID #60 tabs 06/12/22 06/12/22 Unknown lorazepam 0.5 mg tablet 0.5 mg PO BID PRN anxiety #45 tabs 06/12/22 Unknown pantoprazole 40 mg tablet,delayed 40 mg PO BID 30 days #60 tabs 06/12/22 06/12/22 Unknown release Active Medications Generic Name Dose Route Start Last Admin Trade Name Freq PRN Reason Stop Dose Admin Fluticasone Furoate 1 puffs 06/19/22 09:00 06/20/22 09:33 Fluticasone Furoate 100mcg 14 Puffs/Inhaler INH 07/19/22 08:59 1 puffs QAM CRYSTAL Administration Hydromorphone HCl 1 mg 06/20/22 16:06 06/20/22 16:43 Hydromorphone Inj 1 Mg/Ml Syringe IV 07/04/22 16:05 1 mg Q6H PRN Administration Severe Pain Lorazepam 0.5 mg/ Syringe 0.5 mls @ 2 mls/min 06/18/22 14:19 06/20/22 21:25 IV 07/18/22 14:18 2 mls/min BID PRN Administration Anxiety Amino Acids 1,811 ml/ 1,811 mls @ 75 mls/hr 06/20/22 16:00 06/20/22 15:46 Nutrition (Parenteral) IV 06/21/22 15:59 75 mls/hr .Q24H CRYSTAL Administration Protocol Pantoprazole Sodium 40 mg/ 10 mls @ 5 mls/min 06/20/22 21:00 06/20/22 20:40 Syringe IV 07/20/22 20:59 5 mls/min BID CRYSTAL Administration Ketorolac Tromethamine 15 mg 06/19/22 11:10 06/21/22 03:29 Ketorolac Tromethamine 15 Mg/Ml Vial IV 06/24/22 11:09 15 mg Q6H PRN Administration pain not relieved by tylenol Menthol 1 don 06/20/22 08:49 06/20/22 16:13 Cough Drop (Sugar Free) Don 24 Don/1 Box BUCCAL 07/20/22 08:48 1 don Q2H PRN Administration Sore Throat Ondansetron HCl 4 mg 06/18/22 14:13 06/20/22 21:09 Ondansetron Inj 2 Mg/Ml 2 Ml Vial IV 07/18/22 14:12 4 mg Q6H PRN Administration Nausea And Vomiting Past Medical History Medical History Abdominal ascites Abdominal distension Anemia Anxiety and depression Ascites Asthma Asthma LAST USED RESCUE INHALER>BEEN A WHILE Bilateral tinnitus Colostomy present Environmental allergies Failure to thrive GERD (gastroesophageal reflux disease) Gluten intolerance History of anorexia nervosa History of ileus S/P HYSTERECTOMY Hypoglycemia Hypokalemia Hypokalemia Hypothyroidism Itching REASON FOR DAPSONE Large bowel obstruction Leukocytosis Low iron HX IRON INFUSION Migraine Ovarian cancer Ovarian cancer PRESENT DX>REASON FOR A-PORT (HAS RECIEVED 6 CYCLES OF CHEMO 1 YEAR AGO) Ovarian cancer Port-A-Cath in place SBO (small bowel obstruction) SBO (small bowel obstruction) Sinus tachycardia Small bowel obstruction Small bowel obstruction Past Family History Family History Grandmother (Maternal) Breast cancer Hypertension Grandfather (Maternal) No problems noted. Father Hearing loss Mother Hearing loss Allergies Asthma Sister Allergies Asthma Other No family history of adverse response to anesthesia No family history of bleeding disorder Denies family history of Heart disease Cancer Stroke Past Surgical History Surgical History H/O abdominal surgery AT [place] 07/20/21 TO REMOVE CANCER IN ABDOMEN/COLON RESECTION WITH COLOST SOLO & INTRAPERITONEAL CHEMO H/O total hysterectomy + REMOVAL OVARIAN CYSTECTOMY History of colonoscopy History of esophagogastroduodenoscopy (EGD) History of knee surgery LEFT PATELLA REPAIR Nausea and vomiting after administration of anesthetic agent Port-A-Cath in place (08/30/21) Insertion Access Port with Fluoroscopy(Right) - Ilan Vee DO 08/30/2021 Eunice teeth removed Social History Smoking Status: Never smoker Do You Dip or Chew Tobacco: No Hx Alcohol Use: No Hx Substance Use: No substance use type: does not use Physical Exam Vital Signs Last Vital Signs Temp 98.2 F 06/21/22 08:10 Pulse 96 H 06/21/22 08:10 Resp 16 06/21/22 08:10 BP 109/71 06/21/22 08:10 Pulse Ox 98 06/21/22 08:10 O2 Del Method 06/21/22 08:10 Testing Laboratory Results 06/20/22 06:31 06/20/22 08:10 PT 11.1 Seconds (9.0-12.0) 06/19/22 10:06 INR 1.0 (0.9-1.1) 06/19/22 10:06 Urine Color Yellow 06/18/22 Unknown Urine Appearance Clear (Clear) 06/18/22 Unknown Urine pH 5.5 (4.5-7.5) 06/18/22 Unknown Ur Specific [place] > 1.045 (1.000-1.030) H 06/18/22 Unknown Urine Protein Trace (Negative) H 06/18/22 Unknown Urine Glucose (UA) Negative (Negative) 06/18/22 Unknown Urine Ketones 1+ (Negative) H 06/18/22 Unknown Urine Nitrite Negative (Negative) 06/18/22 Unknown Ur Leukocyte Esterase Negative (Negative) 06/18/22 Unknown Urine WBC (Auto) 1-5 /hpf (0-5) 06/18/22 Unknown Urine RBC (Auto) 0-4 /hpf (0-4) 06/18/22 Unknown U Hyaline Cast (Auto) 5-10 /lpf (0-5) H 06/18/22 Unknown U Epithel Cells (Auto) 5-10 /lpf (0-5) H 06/18/22 Unknown Urine Bacteria (Auto) Negative (Negative) 06/18/22 Unknown Blood Type A Positive 06/18/22 16:48 Antibody Screen NEGATIVE 06/18/22 16:48 06/21/22 06/20/22 06/20/22 06:11 23:30 20:26 POC Glucose 106 H 108 H 95 Electrocardiogram Date: 06/02/22 Findings: + NSR @
--- NOTE | 2022-06-21 09:23 | Hospitalist Progress Note ---
Date of Service June 21, 2022 Assessment & Plan (1) SBO (small bowel obstruction): Plan: 57-year-old female past medical history metastatic ovarian cancer with peritoneal carcinomatosis and ascites, recurrent SBO, GERD, asthma, anxiety/depression admitted for recurrent SBO. Recurrent partial small bowel obstruction - Multifactorial. W/ ascites now s/p therapeutic paracentesis, hxmultiple abdominal surgeries, adhesions, and intra-abdominal malignancy. - Presented with abdominal pain and nausea, with CTAP showing partial small bowel obstruction. NGT placed, n.p.o. with chips/sips for comfort. - S/p EGD with PEG tube placement 06/[address] Celeste. Given history of significant depletion, weight loss, and hypoglycemia during admission will continue parenteral nutrition until able to achieve adequate p.o. intake. (2) Anemia: Plan: - Chronic, present on admission. With past gastric occult test positive. Hemoglobin decreased to 6.9 after receiving IV fluids on 06/18. Hemoglobin is 8.0 today without evidence of active bleeding. Platelets 50, increasing slowly during admission. Transfusion threshold of 10,000 unless significant bleeding. If clinically significant bleeding develops, transfuse platelets. Blood Transfusion threshold 7.0. Blood consent signed. CBC in AM, do anticipate some decrease in hemoglobin postsurgery. (3) Ovarian cancer: Plan: High-grade ovarian carcinoma diagnosed 03/2020; has received combination of chemotherapy and initial surgery which was performed at [facility]. Has Neulasta Onpro device. Avastin last given 6 weeks ago. Baseline hemoglobin fluctuates from 7.510.0 in the setting of chemotherapy and malignancy, with associated thrombocytopenia to 28 on admission. Last completed chemo carbop/doxil 16 days ago, suspect thrombocytopenia is 2/2 chemo toxic effect. - Last Avastin 6 weeks ago. - Therapeutic paracentesis q4-6 weeks, performed 06/19 with output of about 1 L. - Dr. Naylor oncology aware of patient's admission, will follow peripherally unless oncologic needs arise while inpatient. (4) Severe protein-calorie malnutrition: Plan: - History of weight loss (weighed 110 lbs prior to cancer diagnosis), hypoglycemia, several admissions for small bowel obstruction during which she was n.p.o. and required parenteral nutrition. - Continue parenteral nutrition with assistance by pharmacy/dietitian for caloric needs. - Replete electrolytes as necessary. (5) Hypokalemia: Plan: - Potassium stable today at 3.8. - Continue parenteral nutrition. (6) Hypothyroidism: Plan: Synthroid held while n.p.o. (7) Colostomy present: Plan: Intact, minimal liquid output for 2 days. Routine management. (8) GERD (gastroesophageal reflux disease): Plan: PPI IV twice daily. (9) Hyponatremia: Plan: - Resolved. In the setting of malnutrition. Parenteral nutrition as described above. (10) Ascites: Plan: - s/p paracentesis ~1L removed 06/19. - Follow up as needed, was getting q4-6 week paracentesis prior to this. (11) Diffuse abdominal pain: Plan: - Improved with paracentesis and NGT placement. - Toradol/Tylenol/Dilaudid as needed with parameters. (12) Anxiety and depression: Plan: Hold BuSpar/sertraline while n.p.o. Continue Ativan 0.5 mg twice daily as needed converted to IV. (13) Thrombocytopenia: Plan: see above. Platelets 50 on 06/21. Plan DVT prophylaxis: Pharmacologic prophylaxis deferred in the setting of thro mbocytopenia CODE STATUS: Full code Disposition: Med/Surg for now, consider escalation of care if patient's hemoglobin drops and requires transfusion Diet: N.p.o. with PPN Admission and Anticipated Discharge Date Admission Date: June 18, 2022 Subjective No acute events overnight. Continues to have hoarse voice and sore throat, however the Dilaudid is much better at alleviating her pain so she has been under much better pain control overnight. She is going to the OR today for G- tube. She reports more gas overnight but still with low ostomy output. Review of Systems Review of Systems: All systems reviewed & are unremarkable except as noted in Subjective Physical Exam Constitutional: + ill appearing and + thin; no acute distress ENMT: NG tube in place Respiratory: normal respiratory effort, lungs clear to auscultation Cardiovascular: RRR, no murmur, no edema Skin: no rashes, warm and dry Psychiatric: A+Ox3, euthymic affect Results & Data Results & Data ([facility]) Vital Signs (Past 12 Hours) Vital Signs Temp Pulse Resp BP BP Pulse Ox O2 Del Method 06/21/22 08:10 36.8 C 96 H 16 109/71 98 Room Air 06/20/22 23:30 37.2 C 90 18 115/73 98 Room Air 06/20/22 22:37 Room Air PG Care Time/CCT Total # of Minutes Spent Total Time Spent with Patient: Total time spent is greater than 50% in coordination of care (as documented) at patient's floor/unit and/or counseling patient: Coding Level of Care Code 91297 Subseq Hosp Care Lvl 3 Diagnoses SBO (small bowel obstruction) K56.609 Anemia D64.9 Ovarian cancer C56.9 Severe protein-calorie malnutrition E43 Hypokalemia E87.6 Hypothyroidism E03.9 Colostomy present Z93.3 GERD (gastroesophageal reflux disease) K21.9 Hyponatremia E87.1 Ascites R18.8 Diffuse abdominal pain R10.84 Anxiety and depression F41.9; F32.9 Thrombocytopenia D69.6
[2022-06-21 09:35] LABS: Hematocrit (blood only) 23.9 % (34.1-44.9); Mean Platelet Volume 11.2 fL (9.4-12.3); Platelet Count 50 K/uL (130-400); White Blood Count 2.93 K/ul (4.8-10.8)
[2022-06-21] MEDS: PANTOprazole 40 MG in SYRINGE 0 ML IV SCH ×2 (09:39→20:40)
[2022-06-21] MEDS: HYDROmorphone INJ 1 MG/ML SYRINGE IV PRN ×2 (09:39→15:56)
[2022-06-21] MEDS: ONDANSETRON INJ 2 MG/ML 2 ML VIAL IV PRN ×2 (09:52→15:55)
[2022-06-21 10:03] LABS: BUN Creatinine Ratio 34.1 (10-20); Calcium 8.1 mg/dl (8.5-10.1); Creatinine Clr Calc Pharmacy 82.3 ml/min; Est GFR (African American) 131.7 ml/min; Est GFR (Non-African American) 113.6 ml/min; Magnesium 1.7 mg/dl (1.7-2.4); Phosphorus 3.9 mg/dl (2.5-4.9); Potassium 3.8 mmol/L (3.5-5.1)
[2022-06-21 10:06] LABS: Mean Corpuscular Hemoglobin 32.1 pg (25.0-34.0); Mean Corpuscular Hgb Conc 33.5 g/dL (32.0-36.0); RDW Coefficient of Variation 15.9 % (11.5-14.5); RDW Standard Deviation 55.8 fL (36.4-46.3); Red Blood Count 2.49 M/uL (3.93-5.22)
[2022-06-21] MEDS: FLUTICASONE FUROATE 100MCG 14 PUFFS/INHALER INH SCH (10:19)
[2022-06-21] MEDS ORDERED: fentaNYL citrate 100 MCG/2 ML VIAL ONE (13:00)
[2022-06-21] MEDS ORDERED: ONDANSETRON INJ 2 MG/ML 2 ML VIAL ONE (13:01)
[2022-06-21] MEDS ORDERED: SUCCINYLCHOLINE CHLORIDE 20 MG/ML 10 ML VIAL IV ONE (13:01)
[2022-06-21] MEDS ORDERED: LIDOCAINE 2% MPF LOCAL 5 ML VIAL INFIL ONE (13:01)
[2022-06-21] MEDS ORDERED: PROPOFOL IV EMULSION 10 MG/ML 20 ML VIAL IV ONE (13:01)
[2022-06-21] MEDS ORDERED: ATROPINE SULFATE 0.1 MG/ML 10ML SYR IV PRN (13:29)
[2022-06-21] MEDS ORDERED: ONDANSETRON INJ 2 MG/ML 2 ML VIAL IV PRN (13:29)
[2022-06-21] MEDS ORDERED: fentaNYL citrate 100 MCG/2 ML VIAL IV PRN (13:29)
[2022-06-21] MEDS ORDERED: ePHEDrine sulfate 50 MG/ML AMP IV PRN (13:29)
[2022-06-21] MEDS ORDERED: CLINDAMYCIN/D5W 600 MG/50 ML BAG IV ONE (13:32)
[2022-06-21] MEDS ORDERED: CLINDAMYCIN 600 MG/D5W 50 ML BAG IV ONE (13:35)
--- NOTE | 2022-06-21 13:36 | History & Physical Bridge Note ---
Date of Service June 21, 2022 History & Physical Bridge Note I have examined the patient, reviewed the History & Physical and in the interval since the performance of the History & Physical I have noted the following changes of clinical significance: no changes noted Patient seen. She wishes to proceed with the EGD with PEG tube placement so that she can have gastric decompression as needed going forward. We discussed other options as well as risks which include bleeding infection injury to another organ DVT PE VA CVA etc. I have answered all her questions. We will proceed today with EGD/PEG tube placement.
--- NOTE | 2022-06-21 15:02 | Operative Report ---
PG Post Operative Report Pre & Post Diagnosis Operation Date: 06/21/22 07:00 Pre-Op Diagnosis: RECURRENT SBO, ANEMIA Post-Op Diagnosis: need for Gastric Decompression I identified the patient and participated in the time-out.: Yes Procedure Operation Date: 06/21/22 07:00 Actual Procedures p EGD Gastric Tube Placement - Manpreet Celeste DO Surgeon Manpreet Celeste, Machine Packaging Technician marla Lim Estimated Blood Loss 0 Findings Consistent with Post-Op Diagnosis Specimens none Description of Procedure After informed consent was obtained the patient was taken to the operating room and placed in supine position. After successful intubation the abdomen was sterilely prepped and draped in usual fashion. A bite block was placed. The gastroscope was lubricated and inserted in the oropharynx and the proximal esophagus without difficulty. Keeping the lumen in view at all times the scope was passed down into the stomach through the pylorus and the first second and third portions of the duodenum. The scope was then withdrawn back in the distal stomach and retroflexed upon itself to evaluate the proximal stomach. There was some mild gastric irritation presumably from her recent NG-tube. We were able to easily transilluminate through the abdominal wall. A small skin incision was made. A needle with a sheath was advanced into the lumen of the stomach without difficulty. A wire was advanced and grasped using a snare. The gastroscope was pulled back out through the oropharynx bringing the wire with it. This was connected to a 20 Vietnamese feeding gastrostomy tube. This wire was then used to pull the tube down through the esophagus and out through the anterior abdominal wall. The bumper rested at 2 cm. I repeated the EGD to verify position. It was in good position in the distal stomach. The stomach was decompressed and scope withdrawn. The securing button was placed as well as feeding adapter. The patient was awakened extubated and transferred recovery in stable condition. My physician magistrate assistant was present for the entire case was instrumental in helping to place the tube during my endoscopy. I attest to the content of the Intraoperative Record and any orders documented therein. Any exceptions are noted below.
--- NOTE | 2022-06-21 15:21 | Anesthesiology Progress Note ---
Date of Service June 21, 2022 Anesthesia Post Procedure Vital Signs Vital Signs: Temp Pulse Pulse Resp BP BP Pulse Ox 06/21/22 14:55 81 10 L 117/72 98 06/21/22 15:15 85 20 130/74 97 06/21/22 15:05 76 10 L 124/75 98 06/21/22 14:45 80 9 L 117/75 98 06/21/22 14:35 83 13 126/77 100 06/21/22 14:26 37.1 C 86 14 134/84 134/84 100 06/21/22 13:15 36.7 C 75 18 135/79 100 06/21/22 08:00 06/21/22 08:10 36.8 C 96 H 16 109/71 98 06/20/22 23:30 37.2 C 90 18 115/73 98 06/20/22 22:37 06/20/22 15:21 37.0 C 95 H 18 112/76 100 O2 Del Method O2 Flow Rate 06/21/22 14:55 Room Air 06/21/22 15:15 Room Air 06/21/22 15:05 Room Air 06/21/22 14:45 Room Air 06/21/22 14:35 Room Air 06/21/22 14:26 Oxymask 6 06/21/22 13:15 Room Air 06/21/22 08:00 Room Air 06/21/22 08:10 Room Air 06/20/22 23:30 Room Air 06/20/22 22:37 Room Air 06/20/22 15:21 Room Air Pain Intensity Throat: Pain Intensity: 4 Transfer of Care Handoff Completed per policy Notes Mental Status: alert / awake / arousable and participated in evaluation Patient Amnestic to Procedure: Yes Nausea / Vomiting: adequately controlled Pain: adequately controlled Airway Patency, RR, SpO2: stable & adequate BP & HR: stable & adequate Hydration State: stable & adequate Anesthetic Complications: no major complications apparent and Pt Satisfied with anesthetic care
[2022-06-21] MEDS ORDERED: [UNRECOGNIZED DRUG - OTHER] IV SCH (16:00)
[2022-06-21] MEDS ORDERED: CENTRAL TPN IV SCH (16:00)
[2022-06-21] MEDS ORDERED: AMINO ACID 8% IV SCH (16:00)
[2022-06-21] MEDS ORDERED: CLINOLIPID 20% IV FAT EMULSION 250 ML IV SCH ×2 (16:00)
[2022-06-21] MEDS: LORazepam 0.5 MG in SYRINGE 0 ML IV PRN (21:26)
[2022-06-21] MEDS ORDERED: STOP CLINOLIPID SCH (22:00)
[2022-06-22] MEDS: HYDROmorphone INJ 1 MG/ML SYRINGE IV PRN ×3 (00:35→21:24)
[2022-06-22 08:30] LABS: Basophils # (auto) 0.01 K/uL (0-0.2); Basophils % (auto) 0.3 %; Eosinophils # (auto) 0.01 K/uL (0-0.50); Eosinophils % (auto) 0.3 %; Hematocrit (blood only) 24.7 % (34.1-44.9); Hemoglobin 8.1 g/dl (12.0-16.0); Immature Granulocytes # (auto) 0.03 K/uL (0.00-0.02); Immature Granulocytes % (auto) 0.8 %; Lymphocytes # (auto) 0.51 K/uL (1.2-3.4); Lymphocytes % (auto) 14.4 %; Mean Platelet Volume 11.3 fL (9.4-12.3); Monocytes % (auto) 11.3 %; Neutrophils # (auto) 2.58 K/uL (1.4-6.5); Neutrophils % (auto) 72.9 %; Platelet Count 73 K/uL (130-400); White Blood Count 3.54 K/ul (4.8-10.8)
[2022-06-22] MEDS: PANTOprazole 40 MG in SYRINGE 0 ML IV SCH ×2 (08:33→21:24)
[2022-06-22] MEDS: KETOROLAC TROMETHAMINE 15 MG/ML VIAL IV PRN ×2 (08:33→17:37)
[2022-06-22] MEDS: LORazepam 0.5 MG in SYRINGE 0 ML IV PRN ×2 (08:34→17:37)
[2022-06-22] MEDS: FLUTICASONE FUROATE 100MCG 14 PUFFS/INHALER INH SCH ×2 (08:34→08:43)
[2022-06-22] MEDS: ONDANSETRON INJ 2 MG/ML 2 ML VIAL IV PRN ×2 (08:34→17:37)
[2022-06-22 08:52] LABS: Calcium 8.5 mg/dl (8.5-10.1); Creatinine Clr Calc Pharmacy 88.4 ml/min; Est GFR (African American) 134.8 ml/min; Est GFR (Non-African American) 116.3 ml/min; Magnesium 1.6 mg/dl (1.7-2.4); Phosphorus 3.8 mg/dl (2.5-4.9); Potassium 3.6 mmol/L (3.5-5.1)
[2022-06-22 08:55] LABS: Mean Corpuscular Hgb Conc 32.8 g/dL (32.0-36.0); Mean Corpuscular Volume 97.6 fL (80.0-100.0); RDW Coefficient of Variation 16.2 % (11.5-14.5); RDW Standard Deviation 56.2 fL (36.4-46.3); Red Blood Count 2.53 M/uL (3.93-5.22)
--- NOTE | 2022-06-22 09:03 | Hospitalist Progress Note ---
Date of Service June 22, 2022 Assessment & Plan (1) SBO (small bowel obstruction): Plan: 57-year-old female past medical history metastatic ovarian cancer with peritoneal carcinomatosis and ascites, recurrent SBO, GERD, asthma, anxiety/depression admitted for recurrent SBO. Recurrent partial small bowel obstruction - Multifactorial. W/ ascites now s/p therapeutic paracentesis, hx multiple abdominal surgeries, adhesions, and intra-abdominal malignancy. - Presented with abdominal pain and nausea, with CTAP showing partial small bowel obstruction. NGT placed, can begin trials of clamping/unclamping as needed for nausea. - S/p EGD with PEG tube placement 06/[address] Celeste. Given history of significant depletion, weight loss, and hypoglycemia during admission will continue parenteral nutrition until able to achieve adequate p.o. intake. -Continue with scheduled Tylenol, with Dilaudid as needed for breakthrough pain. Did add Relistor to try to offset opiate induced slow transit. (2) Anemia: Plan: - Chronic, present on admission. With past gastric occult test positive. Hemoglobin decreased to 6.9 after receiving IV fluids on 06/18. Hemoglobin is 8.1 today without evidence of active bleeding. Platelets 73, increasing slowly during admission. Transfusion threshold of 10,000 unless significant bleeding. If clinically significant bleeding develops, transfuse platelets. Blood Transfusion threshold 7.0. Blood consent signed. CBC in AM, do anticipate some decrease in hemoglobin postsurgery. (3) Ovarian cancer: Plan: High-grade ovarian carcinoma diagnosed 03/2020; has received combination of chemotherapy and initial surgery which was performed at [facility]. Has Neulasta Onpro device. Avastin last given 6 weeks ago. Baseline hemoglobin fluctuates from 7.510.0 in the setting of chemotherapy and malignancy, with associated thrombocytopenia to 28 on admission. Last completed chemo carbop/doxil 16 days ago, suspect thrombocytopenia is 2/2 chemo toxic effect. - Last Avastin 6 weeks ago. - Therapeutic paracentesis q4-6 weeks, performed 06/19 with output of about 1 L. - Dr. Naylor oncology aware of patient's admission, will follow peripherally unless oncologic needs arise while inpatient. (4) Severe protein-calorie malnutrition: Plan: - History of weight loss (weighed 110 lbs prior to cancer diagnosis), hypoglycemia, several admissions for small bowel obstruction during which she was n.p.o. and required parenteral nutrition. - Continue parenteral nutrition with assistance by pharmacy/dietitian for caloric needs. - Replete electrolytes as necessary. (5) Hypokalemia: Plan: - Potassium stable today at 3.8. - Continue parenteral nutrition. (6) Hypothyroidism: Plan: Synthroid held while n.p.o. (7) Colostomy present: Plan: Intact, minimal liquid output for 2 days. Routine management. (8) GERD (gastroesophageal reflux disease): Plan: PPI IV twice daily. (9) Hyponatremia: Plan: - Resolved. In the setting of malnutrition. Parenteral nutrition as described above. (10) Ascites: Plan: - s/p paracentesis ~1L removed 06/19. - Follow up as needed, was getting q4-6 week paracentesis prior to this. (11) Diffuse abdominal pain: Plan: - Improved with paracentesis and NGT placement. - Toradol/Tylenol/Dilaudid as needed with parameters. (12) Anxiety and depression: Plan: Resume sertraline. Continue Ativan 0.5 mg twice daily as needed converted to IV. (13) Thrombocytopenia: Plan: see above. Plan DVT prophylaxis: Pharmacologic prophylaxis deferred in the setting of thrombocytopenia CODE STATUS: Full code Disposition: Med/Surg for now, consider escalation of care if patient's hemoglobin drops and requires transfusion Diet: N.p.o. with PPN, clamping for some medications orally Admission and Anticipated Discharge Date Admission Date: June 18, 2022 Subjective Overnight: Some pain at G tube site and nausea, otherwise no overnight events. No fevers, mildly tachycardic. Hgb stable at 8.1 today, plts 73, Mg 1.6 Very nervous about continued use of opiates and possible slow transit of gut due to them. However, is in a lot of pain in her abdomen at the G-tube site. States that she "just wants to go home". Does ask for trial of Zoloft with clamping as she reports that when she is off this medication for an extended duration her mood suffers. Review of Systems Review of Systems: All systems reviewed & are unremarkable except as noted in Subjective Physical Exam Constitutional: + ill appearing and + thin; no acute distress Respiratory: normal respiratory effort, lungs clear to auscultation Cardiovascular: RRR, no murmur, no edema Skin: no rashes, warm and dry Psychiatric: Alert and oriented, tearful affect. Results & Data Results & Data ([facility]) Vital Signs (Past 12 Hours) Vital Signs Temp Pulse Resp BP BP Pulse Ox O2 Del Method 06/22/22 08:26 36.4 C L 95 H 18 123/74 97 Room Air 06/22/22 00:27 36.4 C L 76 16 97/65 L 99 Room Air PG Care Time/CCT Total # of Minutes Spent Total Time Spent with Patient: Total time spent is greater than 50% in coordination of care (as documented) at patient's floor/unit and/or counseling patient: Coding Level of Care Code 13658 Subseq Hosp Care Lvl 3 Diagnoses SBO (small bowel obstruction) K56.609 Anemia D64.9 Ovarian cancer C56.9 Severe protein-calorie malnutrition E43 Hypokalemia E87.6 Hypothyroidism E03.9 Colostomy present Z93.3 GERD (gastroesophageal reflux disease) K21.9 Hyponatremia E87.1 Ascites R18.8 Diffuse abdominal pain R10.84 Anxiety and depression F41.9; F32.9 Thrombocytopenia D69.6
--- NOTE | 2022-06-22 09:55 | Pharmacy Report ---
PHA: Parenteral Nutrition Con - Date of Service June 22, 2022 - Scope Pharmacy was consulted on 06/18/22 to manage parenteral nutrition orders for this patient. - Subjective The patient is currently on day 4 of central parenteral nutrition for chronic malnutrition in context of recurrent SBO/ovarian cancer. - Objective Height: 5 ft 4 in Weight: 36.1 kg Diet: NPO Intake & Output (24hrs):: Intake & Output 06/20/22 06/21/22 06/22/22 06/23/22 06:59 06:59 06:59 06:59 Intake Total 1672 / 1672 2168 / 2168 2561.00 / 2561.00 Output Total 800 / 800 350 / 350 0 / 0 Balance 872 / 872 1818 / 1818 2561.00 / 2561.00 Weight 36.1 kg 36.1 kg Laboratory Data (Last 24 Hr):: 06/21/22 06/22/22 08:46 07:33 Sodium 139 140 Potassium 3.8 3.6 Chloride 105 104 Carbon Dioxide 29 31 BUN 15 16 Creatinine 0.44 L 0.41 L Glucose 99 99 Calcium 8.1 L 8.5 Phosphorus 3.9 3.8 Magnesium 1.7 1.6 L Nutrition Assessment:: Please refer to the Notes section of the EMR for the most recent analyst sales note. - Assessment 06/22/22: * POD #1 s/p G-tube placement for gastric decompression * Patient remains NPO with plan to continue current TPN formulation w/ lipids MWF (no lipids today) * Labs largely stable, hypomagnesemia noted today (1.6 mg/dL) - 2 g IV magnesium sulfate ordered for repletion this morning 06/19/22: * Patient with very low body weight. Dietitian recommendations from yesterday reviewed. Discussed with Jorje Michael today and revised slightly - plan is to start using *peripheral* Clinimix form (due to lower dextrose content and risk of refeeding), administer it via a central line, start at 1680 mL of Clinimix (70 mL/hr) and only give lipids every other day (due to low body weight). Risk of refeeding may be high, but given stable electrolytes from yesterday to today despite a dextrose infusion that will have contributed 144 g of CHO over 24 hours, this is not deemed highly likely. May switch to central Clinimix formulation soon, depending on tolerability and electrolyte trends. - Plan For day 4 of PN administration, the following will be ordered: Macronutrients Amino acids 77 grams/day Dextrose 134 grams/day Lipids 50 grams on Sunday, Sunday, and Sunday only Micronutrients Sodium phosphate 15 MMol Sodium chloride 60 mEq Sodium acetate 80 mEq Potassium chloride 60 mEq Magnesium sulfate 12.18 mEq Calcium gluconate 4.65 mEq Multivitamins 10 mL Trace Elements 1 mL Additional additives: thiamine 100 mg Total volume 1084 mL to be infused over 24 hrs will provide 764 kcal/day Labs, as indicated, will be ordered per protocol Pharmacy will continue to follow and adjust parenteral nutrition orders on a daily basis. Thank you for allowing us to participate in the care of this patient.
[2022-06-22] MEDS: MAGNESIUM SULFATE / D5W 1 GM/100 ML BAG IV SCH ×2 (10:44→12:37)
[2022-06-22] MEDS: SERTRALINE HCL 100 MG TABLET PO SCH (13:25)
--- NOTE | 2022-06-22 14:49 | Surgery Progress Note ---
Date of Service June 22, 2022 Assessment & Plan (1) Ovarian cancer: Plan: POD 1 venting PEG can begin clamping and unclamping G-tube prn nausea or bloating Admission and Anticipated Discharge Date Admission Date: June 18, 2022 Subjective hungry, no flatus, no bloating Physical Exam 2 Gastrointestinal (Abdomen): Inspection/Auscultation: abdomen not distended Gastrostomy 400 cc Results & Data ([facility]) Vital Signs (Past 12 Hours) Vital Signs Temp Pulse Resp BP Pulse Ox O2 Del Method 06/22/22 08:30 Room Air 06/22/22 08:26 36.4 C L 95 H 18 123/74 97 Room Air PG Care Time/CCT Total # of Minutes Spent Total Time Spent with Patient: Total time spent is greater than 50% in coordination of care (as documented) at patient's floor/unit and/or counseling patient: Coding Level of Care Code None Diagnoses Ovarian cancer C56.9
[2022-06-22] MEDS ORDERED: AMINO ACID 8% IV SCH (16:00)
[2022-06-22] MEDS ORDERED: [UNRECOGNIZED DRUG - OTHER] IV SCH (16:00)
[2022-06-22] MEDS ORDERED: CENTRAL TPN IV SCH (16:00)
[2022-06-22] MEDS: METHYLNALTREXONE BROMIDE 12 MG/0.6 ML VIAL SQ SCH (16:09)
[2022-06-22] MEDS ORDERED: PROCHLORPERAZINE 5 MG/ML 2 ML VIAL IM ONE (17:57)
[2022-06-22] MEDS ORDERED: ACETAMINOPHEN 1,000 MG/100 ML VIAL IV SCH (21:00)
[2022-06-22] MEDS: ACETAMINOPHEN 10MG/ML Custom 550 MG in EMPTY BAG 0 ML IV SCH (22:51)
[2022-06-23] MEDS: KETOROLAC TROMETHAMINE 15 MG/ML VIAL IV PRN ×3 (05:15→18:09)
[2022-06-23] MEDS: ACETAMINOPHEN 10MG/ML Custom 550 MG in EMPTY BAG 0 ML IV SCH ×3 (05:35→21:41)
[2022-06-23 08:12] LABS: Basophils # (auto) 0.02 K/uL (0-0.2); Basophils % (auto) 0.4 %; Eosinophils # (auto) 0.02 K/uL (0-0.50); Eosinophils % (auto) 0.4 %; Hematocrit (blood only) 22.8 % (34.1-44.9); Hemoglobin 7.5 g/dl (12.0-16.0); Immature Granulocytes # (auto) 0.03 K/uL (0.00-0.02); Immature Granulocytes % (auto) 0.6 %; Lymphocytes # (auto) 0.66 K/uL (1.2-3.4); Mean Corpuscular Hemoglobin 32.1 pg (25.0-34.0); Mean Corpuscular Hgb Conc 32.9 g/dL (32.0-36.0); Mean Corpuscular Volume 97.4 fL (80.0-100.0); Mean Platelet Volume 9.9 fL (9.4-12.3); Monocytes # (auto) 0.65 K/uL (0.24-0.82); Monocytes % (auto) 12.8 %; Neutrophils # (auto) 3.69 K/uL (1.4-6.5); Neutrophils % (auto) 72.8 %; Platelet Count 98 K/uL (130-400); RDW Coefficient of Variation 16.1 % (11.5-14.5); RDW Standard Deviation 56.3 fL (36.4-46.3); Red Blood Count 2.34 M/uL (3.93-5.22); White Blood Count 5.07 K/ul (4.8-10.8)
[2022-06-23 08:47] LABS: RBC Morphology Unremarkable
[2022-06-23 08:52] LABS: BUN Creatinine Ratio 51.2 (10-20); Creatinine Clr Calc Pharmacy 88.4 ml/min; Est GFR (African American) 134.8 ml/min; Est GFR (Non-African American) 116.3 ml/min; Phosphorus 4.3 mg/dl (2.5-4.9); Potassium 3.7 mmol/L (3.5-5.1)
--- NOTE | 2022-06-23 08:56 | Hospitalist Progress Note ---
Date of Service June 23, 2022 Assessment & Plan (1) SBO (small bowel obstruction): Plan: 57-year-old female past medical history metastatic ovarian cancer with peritoneal carcinomatosis and ascites, recurrent SBO, GERD, asthma, anxiety/depression admitted for recurrent SBO. Recurrent partial small bowel obstruction - Multifactorial. W/ ascites now s/p therapeutic paracentesis, hx multiple abdominal surgeries, adhesions, and intra-abdominal malignancy. - Presented with abdominal pain and nausea, with CTAP showing partial small bowel obstruction. - S/p EGD with PEG tube placement 06/[address] Celeste. Given history of significant depletion, weight loss, and hypoglycemia during admission will continue parenteral nutrition until able to achieve adequate p.o. intake. - Advanced to clears with Boost today, continueto advance as tolerated. - Continue with scheduled Tylenol, with Dilaudid as needed for breakthrough pain. Continue Relistor to try to offset opiate induced slow transit. (2) Anemia: Plan: - Chronic, present on admission. With past gastric occult test positive. Hemoglobin decreased to 6.9 after receiving IV fluids on 06/18. Hemoglobin is 7.5 today without evidence of active bleeding. Platelets 98, increasing slowly during admission. Transfusion threshold of 10,000 unless significant bleeding. If clinically significant bleeding develops, transfuse platelets. Blood Transfusion threshold 7.0. Blood consent signed. CBC in AM, transfuse if Hgb <7. (3) Ovarian cancer: Plan: High-grade ovarian carcinoma diagnosed 03/2020; has received combination of chemotherapy and [place] [facility] [place] Has Neulasta Onpro device. Avastin last given 6 weeks ago. Baseline hemoglobin fluctuates from 7.510.0 in the setting of chemotherapy and malignancy, with associated thrombocytopenia to 28 on admission. Last completed chemo carbop/doxil 16 days ago, suspect thrombocytopenia is 2/2 chemo toxic effect. - Last Avastin 6 weeks ago. - Therapeutic paracentesis q4-6 weeks, performed 06/19 with output of about 1 L. - Dr. Naylor oncology aware of patient's admission, will follow peripherally unless oncologic needs arise while inpatient. (4) Severe protein-calorie malnutrition: Plan: - History of weight loss (weighed 110 lbs prior to cancer diagnosis), hypoglycemia, several admissions for small bowel obstruction during which she was n.p.o. and required parenteral nutrition. - Continue parenteral nutrition with assistance by pharmacy/dietitian for caloric needs. - Replete electrolytes as necessary. (5) Hypokalemia: Plan: - Potassium stable today at 3.7. - Continue parenteral nutrition. (6) Hypothyroidism: Plan: Synthroid held while n.p.o. (7) Colostomy present: Plan: Intact, minimal liquid output for 2 days. Routine management. (8) GERD (gastroesophageal reflux disease): Plan: PPI IV twice daily. (9) Hyponatremia: Plan: - Resolved. In the setting of malnutrition. Parenteral nutrition as described above. (10) Ascites: Plan: - s/p paracentesis ~1L removed 06/19. - Follow up as needed, was getting q4-6 week paracentesis prior to this. (11) Diffuse abdominal pain: Plan: - Improved with paracentesis and G tube placement. - Toradol/Tylenol/Dilaudid as needed with parameters. (12) Anxiety and depression: Plan: Resume sertraline. Continue Ativan 0.5 mg twice daily as needed converted to IV. (13) Thrombocytopenia: Plan: see above. Plan DVT prophylaxis: Pharmacologic prophylaxis deferred in the setting of thrombocytopenia/low Hgb, consider Heparin BID tomorrow based on CBC CODE STATUS: Full code Disposition: Med/Surg Diet: clears with Boost, PPN (consider stop tomorrow if relatively good oral intake) Admission and Anticipated Discharge Date Admission Date: June 18, 2022 Subjective No acute events overnight. Pain under much better control today. Throat soreness improved. Feeling hungry and tolerated popsicle with no nausea. Surgery advanced to clears and boost today. No complaints of chest pain, SOB. Had migraine overnight improved with Phenergan. Review of Systems Review of Systems: All systems reviewed & are unremarkable except as noted in Subjective Physical Exam Constitutional: + ill appearing and + thin; no acute distress Respiratory: normal respiratory effort, lungs clear to auscultation Cardiovascular: RRR, no murmur, no edema Gastrointestinal (Abdomen): Soft, nontender, nondistended ostomy with minimal output G-tube in place with minimal bilious output Bowel sounds present (improved from yesterday) Skin: no rashes, warm and dry Psychiatric: A+Ox3, euthymic affect Results & Data Results & Data ([facility]) Vital Signs (Past 12 Hours) Vital Signs Temp Pulse Resp BP Pulse Ox O2 Del Method 06/23/22 08:40 36.6 C 69 16 95/55 L 97 Room Air 06/22/22 23:14 36.6 C 93 H 16 101/65 94 Room Air PG Care Time/CCT Total # of Minutes Spent Total Time Spent with Patient: Total time spent is greater than 50% in coordination of care (as documented) at patient's floor/unit and/or counseling patient: Coding Level of Care Code 78843 Subseq Hosp Care Lvl 3 Diagnoses SBO (small bowel obstruction) K56.609 Anemia D64.9 Ovarian cancer C56.9 Severe protein-calorie malnutrition E43 Hypokalemia E87.6 Hypothyroidism E03.9 Colostomy present Z93.3 GERD (gastroesophageal reflux disease) K21.9 Hyponatremia E87.1 Ascites R18.8 Diffuse abdominal pain R10.84 Anxiety and depression F41.9; F32.9 Thrombocytopenia D69.6
--- NOTE | 2022-06-23 10:13 | Surgery Progress Note ---
Date of Service June 23, 2022 Assessment & Plan (1) SBO (small bowel obstruction): Plan: She is tolerating some clear liquids, will add boost supplement as well Can plan for G-tube while she is taking n.p.o. Continue TPN No plans for surgery (2) Ovarian cancer: (3) Severe protein-calorie malnutrition: Admission and Anticipated Discharge Date Admission Date: June 18, 2022 Subjective Patient seen and examined. Denies any nausea or vomiting. She has very minimal ostomy output. Denies any significant abdominal pain. Afebrile. Review of Systems Constitutional: no fever and no chills Physical Exam Constitutional: + cachectic Gastrointestinal (Abdomen): Soft, nontender, nondistended ostomy without output G-tube in place with minimal bilious output Results & Data ([facility]) Vital Signs (Past 12 Hours) Vital Signs Temp Pulse Resp BP Pulse Ox O2 Del Method 06/23/22 08:40 36.6 C 69 16 95/55 L 97 Room Air 06/22/22 23:14 36.6 C 93 H 16 101/65 94 Room Air PG Care Time/CCT Total # of Minutes Spent Total Time Spent with Patient: Total time spent is greater than 50% in coordination of care (as documented) at patient's floor/unit and/or counseling patient: Coding Level of Care Code 71991 Subseq Hosp Care Lvl 1 Diagnoses SBO (small bowel obstruction) K56.609 Ovarian cancer C56.9 Severe protein-calorie malnutrition E43
[2022-06-23] MEDS: SERTRALINE HCL 100 MG TABLET PO SCH (10:25)
[2022-06-23] MEDS: FLUTICASONE FUROATE 100MCG 14 PUFFS/INHALER INH SCH (10:25)
[2022-06-23] MEDS: PANTOprazole 40 MG in SYRINGE 0 ML IV SCH ×2 (10:25→21:41)
[2022-06-23] MEDS: LORazepam 0.5 MG in SYRINGE 0 ML IV PRN ×2 (11:14→21:41)
[2022-06-23] MEDS: ONDANSETRON INJ 2 MG/ML 2 ML VIAL IV PRN ×2 (11:14→18:09)
[2022-06-23] MEDS ORDERED: CLINOLIPID 20% IV FAT EMULSION 250 ML IV SCH (16:00)
[2022-06-23] MEDS ORDERED: [UNRECOGNIZED DRUG - OTHER] IV SCH (16:00)
[2022-06-23] MEDS ORDERED: AMINO ACID 8% IV SCH (16:00)
[2022-06-23] MEDS ORDERED: CENTRAL TPN IV SCH (16:00)
[2022-06-23] MEDS: MONTELUKAST SODIUM 10 MG TABLET PO SCH (21:39)
[2022-06-23] MEDS: busPIRone 5 MG TAB PO SCH (21:39)
[2022-06-23] MEDS ORDERED: STOP CLINOLIPID SCH (22:00)
[2022-06-24] MEDS: KETOROLAC TROMETHAMINE 15 MG/ML VIAL IV PRN ×3 (02:19→15:12)
[2022-06-24] MEDS: LEVOTHYROXINE SODIUM 25 MCG TABLET PO SCH (06:08)
[2022-06-24] MEDS: ACETAMINOPHEN 10MG/ML Custom 550 MG in EMPTY BAG 0 ML IV SCH ×3 (06:08→22:05)
--- NOTE | 2022-06-24 08:27 | Hospitalist Progress Note ---
Date of Service June 24, 2022 Assessment & Plan (1) SBO (small bowel obstruction): Plan: 57-year-old female past medical history metastatic ovarian cancer with peritoneal carcinomatosis and ascites, recurrent SBO, GERD, asthma, anxiety/depression admitted for recurrent SBO. Recurrent partial small bowel obstruction - Multifactorial. W/ ascites now s/p therapeutic paracentesis, hx multiple abdominal surgeries, adhesions, and intra-abdominal malignancy. - Presented with abdominal pain and nausea, with CTAP showing partial small bowel obstruction. - S/p EGD with PEG tube placement 06/[address] Celeste. Given history of significant depletion, weight loss, and hypoglycemia during admission will continue parenteral nutrition until able to achieve adequate p.o. intake. Suspect maybe d/c tomorrow if tolerating minced diet for dinner today. - Advanced to full liquids with good tolerance -> minced and moist lactose free diet today. - Continue with scheduled Tylenol, with Toradol and Dilaudid as needed for breakthrough pain. Continue Relistor to try to offset opiate induced slow transit while on opiate medication. (2) Anemia: Plan: - Chronic, present on admission. With past gastric occult test positive. Hemoglobin decreased to 6.9 after receiving IV fluids on 06/18. Hemoglobin is 7.6 today without evidence of active bleeding, stable from last several days. Platelets 126, increasing slowly during admission. Transfusion threshold of 10,000 unless significant bleeding. CBC in AM, transfuse if Hgb <7. (3) Ovarian cancer: Plan: High-grade ovarian carcinoma diagnosed 03/2020; has received combination of chemotherapy and initial surgery which was performed at [facility] [place]. Has Neulasta Onpro device. Avastin last given 6 weeks ago. Baseline hemoglobin fluctuates from 7.510.0 in the setting of chemotherapy and malignancy, with associated thrombocytopenia to 28 on admission. Last completed chemo carbop/doxil 16 days ago, suspect thrombocytopenia is 2/2 chemo toxic effect. - Last Avastin 6 weeks ago. - Therapeutic paracentesis q4-6 weeks, performed 06/19 with output of about 1 L. - Dr. Naylor oncology aware of patient's admission, will follow peripherally unless oncologic needs arise while inpatient. (4) Severe protein-calorie malnutrition: Plan: - History of weight loss (weighed 110 lbs prior to cancer diagnosis), hypoglycemia, several admissions for small bowel obstruction during which she was n.p.o. and required parenteral nutrition. - Continue parenteral nutrition with assistance by pharmacy/dietitian for caloric needs, until adequate oral intake. - Replete electrolytes as necessary. (5) Hypokalemia: Plan: - Potassium stable today at 3.7. - Continue parenteral nutrition. (6) Hypothyroidism: Plan: Resume levothyroxine. (7) Colostomy present: Plan: Intact, increase in liquid output today as well as gas. Routine management. (8) GERD (gastroesophageal reflux disease): Plan: PPI IV twice daily, transition to PO 06/25. (9) Hyponatremia: Plan: - Resolved. In the setting of malnutrition. Parenteral nutrition as described above. (10) Ascites: Plan: - s/p paracentesis ~1L removed 06/19. - Follow up as needed, was getting q4-6 week paracentesis prior to this. (11) Diffuse abdominal pain: Plan: - Improved with paracentesis and G tube placement. - Toradol/Tylenol/Dilaudid as needed with parameters. (12) Anxiety and depression: Plan: Continue sertraline. Continue Ativan 0.5 mg twice daily as needed converted to IV. (13) Thrombocytopenia: Plan: see above. Plan DVT prophylaxis: Start Heparin 5000u BID for DVT ppx today, monitor CBC CODE STATUS: Full code Disposition: Med/Surg Diet: minced diet for dinner, PPN (consider stop tomorrow if relatively good oral intake) Admission and Anticipated Discharge Date Admission Date: June 18, 2022 Subjective No overnight events. Muriel reports mild abdominal pain at times overnight at G tube site, relieved with Toradol. She is trying to avoid opiate if she can. Passing gas and some stool through ostomy, was very hungry when she woke up, belly gurgling. Hgb stable 7.6, plts 126 Review of Systems Review of Systems: All systems reviewed & are unremarkable except as noted in Subjective Physical Exam Constitutional: well developed and + thin; no acute distress Respiratory: normal respiratory effort, lungs clear to auscultation Cardiovascular: RRR, no murmur, no edema Gastrointestinal (Abdomen): G tube and ostomy sites without surrounding erythema or purulent drainage ostomy with some liquid stool Bowel sounds present, normal No abdominal tenderness to palpation Skin: no rashes, warm and dry Psychiatric: A+Ox3, euthymic affect Results & Data Results & Data ([facility]) Vital Signs (Past 12 Hours) Vital Signs Temp Pulse Pulse Resp BP Pulse Ox O2 Del Method 06/24/22 08:00 37 C 81 18 107/66 97 Room Air 06/23/22 22:07 36.7 C 96 H 18 118/75 99 Room Air PG Care Time/CCT Total # of Minutes Spent Total Time Spent with Patient: Total time spent is greater than 50% in coordination of care (as documented) at patient's floor/unit and/or counseling patient: Coding Level of Care Code 39175 Subseq Hosp Care Lvl 3 Diagnoses SBO (small bowel obstruction) K56.609 Anemia D64.9 Ovarian cancer C56.9 Severe protein-calorie malnutrition E43 Hypokalemia E87.6 Hypothyroidism E03.9 Colostomy present Z93.3 GERD (gastroesophageal reflux disease) K21.9 Hyponatremia E87.1 Ascites R18.8 Diffuse abdominal pain R10.84 Anxiety and depression F41.9; F32.9 Thrombocytopenia D69.6
[2022-06-24] MEDS: ONDANSETRON INJ 2 MG/ML 2 ML VIAL IV PRN ×3 (08:47→22:06)
[2022-06-24] MEDS: busPIRone 5 MG TAB PO SCH ×2 (08:47→20:33)
[2022-06-24] MEDS: FLUTICASONE FUROATE 100MCG 14 PUFFS/INHALER INH SCH (08:48)
[2022-06-24] MEDS: SERTRALINE HCL 100 MG TABLET PO SCH (08:48)
[2022-06-24] MEDS: PANTOprazole 40 MG in SYRINGE 0 ML IV SCH ×2 (08:49→20:29)
[2022-06-24 09:16] LABS: Basophils # (auto) 0.01 K/uL (0-0.2); Basophils % (auto) 0.2 %; Eosinophils # (auto) 0.01 K/uL (0-0.50); Eosinophils % (auto) 0.2 %; Hematocrit (blood only) 23.1 % (34.1-44.9); Hemoglobin 7.6 g/dl (12.0-16.0); Immature Granulocytes # (auto) 0.04 K/uL (0.00-0.02); Immature Granulocytes % (auto) 0.7 %; Lymphocytes # (auto) 0.86 K/uL (1.2-3.4); Lymphocytes % (auto) 14.2 %; Mean Corpuscular Hemoglobin 31.3 pg (25.0-34.0); Mean Corpuscular Hgb Conc 32.9 g/dL (32.0-36.0); Mean Corpuscular Volume 95.1 fL (80.0-100.0); Mean Platelet Volume 10.9 fL (9.4-12.3); Monocytes # (auto) 0.64 K/uL (0.24-0.82); Monocytes % (auto) 10.5 %; Neutrophils # (auto) 4.51 K/uL (1.4-6.5); Neutrophils % (auto) 74.2 %; Platelet Count 126 K/uL (130-400); RDW Coefficient of Variation 15.9 % (11.5-14.5); RDW Standard Deviation 54.9 fL (36.4-46.3); Red Blood Count 2.43 M/uL (3.93-5.22); White Blood Count 6.07 K/ul (4.8-10.8)
[2022-06-24 09:35] LABS: Calcium 7.9 mg/dl (8.5-10.1); Creatinine Clr Calc Pharmacy 94.5 ml/min; Est GFR (African American) 138.2 ml/min; Est GFR (Non-African American) 119.3 ml/min; Magnesium 1.7 mg/dl (1.7-2.4); Potassium 3.7 mmol/L (3.5-5.1)
[2022-06-24 09:47] LABS: Polychromasia 1+
[2022-06-24] MEDS: LORazepam 0.5 MG in SYRINGE 0 ML IV PRN ×2 (09:54→22:06)
--- NOTE | 2022-06-24 11:31 | Surgery Progress Note ---
Date of Service June 24, 2022 Assessment & Plan (1) Ovarian cancer: Plan: resolving advance diet Present on Admission?: Yes (2) SBO (small bowel obstruction): Admission and Anticipated Discharge Date Admission Date: June 18, 2022 Subjective feels better passing flatus and stool through ostomy Review of Systems Constitutional: no fever, no chills and no anorexia Respiratory: no cough and no dyspnea Cardiovascular: no chest pain Gastrointestinal: + change in bowel habits; no abdominal pain, no nausea and no vomiting Genitourinary: no dysuria Integumentary: no lesions Neurologic: no localized weakness and no generalized weakness Psychiatric: no behavioral changes Physical Exam Constitutional: + thin Neck: trachea midline Respiratory: normal respiratory effort, lungs clear to auscultation Cardiovascular: RRR, no murmur, no edema Gastrointestinal (Abdomen): Inspection/Auscultation: abdomen normal to inspection (ostomy in place ; g-tube ) and normal bowel sounds; abdomen not dis tended Percussion/Palpation: abdomen soft; abdomen nontender, no guarding and abdomen not rigid Skin: no rashes, warm and dry Results & Data ([facility]) Vital Signs (Past 12 Hours) Vital Signs Temp Pulse Resp BP Pulse Ox O2 Del Method 06/24/22 08:00 37 C 81 18 107/66 97 Room Air
[2022-06-24] MEDS ORDERED: CENTRAL TPN IV SCH (16:00)
[2022-06-24] MEDS ORDERED: [UNRECOGNIZED DRUG - OTHER] IV SCH (16:00)
[2022-06-24] MEDS ORDERED: CLINOLIPID 20% IV FAT EMULSION 250 ML IV SCH (16:00)
[2022-06-24] MEDS ORDERED: AMINO ACID 8% IV SCH (16:00)
[2022-06-24] MEDS: METHYLNALTREXONE BROMIDE 12 MG/0.6 ML VIAL SQ SCH (16:18)
[2022-06-24] MEDS: HYDROmorphone INJ 1 MG/ML SYRINGE IV PRN (19:05)
[2022-06-24] MEDS: HEPARIN SOD 5,000 UNIT/0.5 ML VIAL SQ SCH (20:33)
[2022-06-24] MEDS: MONTELUKAST SODIUM 10 MG TABLET PO SCH (20:33)
[2022-06-24] MEDS ORDERED: STOP CLINOLIPID SCH (22:00)
[2022-06-25] MEDS: KETOROLAC TROMETHAMINE 15 MG/ML VIAL IV PRN ×3 (02:43→17:40)
[2022-06-25] MEDS: ACETAMINOPHEN 10MG/ML Custom 550 MG in EMPTY BAG 0 ML IV SCH (06:33)
[2022-06-25] MEDS: LEVOTHYROXINE SODIUM 25 MCG TABLET PO SCH (06:34)
[2022-06-25 08:14] LABS: Basophils # (auto) 0.02 K/uL (0-0.2); Basophils % (auto) 0.3 %; Eosinophils # (auto) 0.02 K/uL (0-0.50); Eosinophils % (auto) 0.3 %; Hematocrit (blood only) 25.8 % (34.1-44.9); Hemoglobin 8.3 g/dl (12.0-16.0); Immature Granulocytes # (auto) 0.05 K/uL (0.00-0.02); Immature Granulocytes % (auto) 0.8 %; Lymphocytes # (auto) 0.94 K/uL (1.2-3.4); Lymphocytes % (auto) 14.4 %; Mean Corpuscular Hemoglobin 31.6 pg (25.0-34.0); Mean Corpuscular Hgb Conc 32.2 g/dL (32.0-36.0); Mean Corpuscular Volume 98.1 fL (80.0-100.0); Mean Platelet Volume 10.7 fL (9.4-12.3); Monocytes # (auto) 0.88 K/uL (0.24-0.82); Monocytes % (auto) 13.5 %; Neutrophils # (auto) 4.63 K/uL (1.4-6.5); Neutrophils % (auto) 70.7 %; Platelet Count 201 K/uL (130-400); RDW Coefficient of Variation 15.9 % (11.5-14.5); RDW Standard Deviation 55.8 fL (36.4-46.3); Red Blood Count 2.63 M/uL (3.93-5.22); White Blood Count 6.54 K/ul (4.8-10.8)
[2022-06-25 08:39] LABS: Albumin Globulin Ratio 1.1 (0.9-2); Albumin Level 2.8 gm/dl (3.4-5.0); BUN Creatinine Ratio 34.8 (10-20); Bilirubin,Total 0.3 mg/dl (0.2-1.0); Calcium 8.4 mg/dl (8.5-10.1); Creatinine Clr Calc Pharmacy 78.1 ml/min; Est GFR (African American) 129.8 ml/min; Globulin 2.5 gm/dl (2.5-4.0); Magnesium 1.7 mg/dl (1.7-2.4); Phosphorus 3.9 mg/dl (2.5-4.9); Total Protein 5.3 gm/dl (6.0-8.3)
--- NOTE | 2022-06-25 08:41 | Surgery Progress Note ---
Date of Service June 25, 2022 Assessment & Plan (1) SBO (small bowel obstruction): Plan: resolving advance diet as tolerated PEG clamped ostomy working Present on Admission?: Yes Admission and Anticipated Discharge Date Admission Date: June 18, 2022 Subjective doing better stool and flatus through ostomy PEG clamped Review of Systems Constitutional: no fever and no chills Respiratory: no dyspnea Cardiovascular: no chest pain Gastrointestinal: no abdominal pain, no nausea and no vomiting Genitourinary: no dysuria Neurologic: + generalized weakness; no localized weakness Psychiatric: no behavioral changes Physical Exam Constitutional: + thin Respiratory: normal respiratory effort, lungs clear to auscultation Cardiovascular: RRR, no murmur, no edema Gastrointestinal (Abdomen): Inspection/Auscultation: normal bowel sounds; abdomen not distended Percussion/Palpation: abdomen soft; abdomen nontender, no guarding and abdomen not rigid Results & Data ([facility]) Vital Signs (Past 12 Hours) Vital Signs Temp Pulse Pulse Resp BP BP Pulse Ox 06/25/22 07:30 37.1 C 87 14 122/75 96 06/24/22 22:35 36.9 C 98 H 16 129/78 95 O2 Del Method 06/25/22 07:30 Room Air 06/24/22 22:35 Room Air
[2022-06-25] MEDS ORDERED: KETOROLAC TROMETHAMINE 10 MG TABLET PO PRN (08:46)
[2022-06-25] MEDS ORDERED: ONDANSETRON 4 MG OD TAB PO PRN ×2 (08:47→08:48)
--- NOTE | 2022-06-25 08:49 | Hospitalist Progress Note ---
Date of Service June 25, 2022 Assessment & Plan (1) SBO (small bowel obstruction): Plan: 57-year-old female past medical history metastatic ovarian cancer with peritoneal carcinomatosis and ascites, recurrent SBO, GERD, asthma, anxiety/depression admitted for recurrent SBO. Recurrent partial small bowel obstruction - Multifactorial. W/ ascites now s/p therapeutic paracentesis, hx multiple abdominal surgeries, adhesions, and intra-abdominal malignancy. - Presented with abdominal pain and nausea, with CTAP showing partial small bowel obstruction. - S/p EGD with PEG tube placement 06/[address] Celeste. Can d/c parenteral nutrition given tolerating minced regular diet. - Continue with scheduled Tylenol, with Toradol and home oxycodone as needed for breakthrough pain. Continue Relistor to try to offset opiate induced slow transit while admitted. (2) Anemia: Plan: - Chronic, present on admission. With past gastric occult test positive. Hemoglobin decreased to 6.9 after receiving IV fluids on 06/18. Hemoglobin is 8.3 today without evidence of active bleeding, stable from last several days. Platelets 201, increasing slowly during admission. Transfusion threshold of 10,000 unless significant bleeding. Daily CBC. (3) Ovarian cancer: Plan: High-grade ovarian carcinoma diagnosed 03/2020; has received combination of chemotherapy and initial surgery which was performed at [facility] [place]. Has Neulasta Onpro device. Avastin last given ~6 weeks ago. Baseline hemoglobin fluctuates from 7.510.0 in the setting of chemotherapy and malignancy, with associated thrombocytopenia to 28 on admission. Last completed chemo carbop/doxil ~20 days ago, suspect thrombocytopenia is 2/2 chemo toxic effect. - Therapeutic paracentesis q4-6 weeks, performed 06/19 with output of about 1 L. - Dr. Naylor oncology aware of patient's admission, will follow peripherally with follow up after discharge unless oncologic needs arise while inpatient. (4) Severe protein-calorie malnutrition: Plan: - History of weight loss (weighed 110 lbs prior to cancer diagnosis), hypoglycemia, several admissions for small bowel obstruction during which she was n.p.o. and required parenteral nutrition. - Continue parenteral nutrition with assistance by pharmacy/dietitian for caloric needs, until adequate oral intake. - Replete electrolytes as necessary. (5) Hypokalemia: Plan: - Potassium stable today at 4.0. (6) Hypothyroidism: Plan: Resume levothyroxine. (7) Colostomy present: Plan: Intact, increase in liquid output today as well as gas. Routine management. (8) GERD (gastroesophageal reflux disease): Plan: - PPI PO BID. (9) Hyponatremia: Plan: - Resolved. In the setting of malnutrition. (10) Ascites: Plan: - s/p paracentesis ~1L removed 06/19. - Follow up as needed, was getting q4-6 week paracentesis prior to this. (11) Diffuse abdominal pain: Plan: - Improved with paracentesis and G tube placement. - Toradol/Tylenol/oxycodone as needed with parameters. (12) Anxiety and depression: Plan: Continue sertraline. Continue Ativan 0.5 mg PO twice daily as needed. (13) Thrombocytopenia: Plan: see above. Plan DVT prophylaxis: Heparin 5000u BID for DVT ppx CODE STATUS: Full code Disposition: Med/Surg Diet: minced lactose intolerant diet Admission and Anticipated Discharge Date Admission Date: June 18, 2022 Subjective No acute events overnight Tolerated minced diet for dinner without issues. She feels like she is having a bit less pain overall, pain is located at site of G tube placement and she notices it most with lots of walking around, and with sitting up. She notes output from her ostomy. She denies chest pain, shortness of breath. Has not gotten Dilaudid since 06/24, and last IV Toradol dose early this morning. Last Zofran late evening 06/24. Hgb 8.3, plts 201, no electrolyte abnormalities. Review of Systems Review of Systems: All systems reviewed & are unremarkable except as noted in Subjective Physical Exam Constitutional: well developed and + thin; no acute distress Respiratory: normal respiratory effort, lungs clear to auscultation Cardiovascular: RRR, no murmur, no edema Gastrointestinal (Abdomen): G tube and ostomy sites without surrounding erythema or purulent drainage ostomy with some liquid stool Bowel sounds present, normal No abdominal tenderness to palpation Skin: no rashes, warm and dry Psychiatric: A+Ox3, euthymic affect Results & Data Results & Data ([facility] [place]) Vital Signs (Past 12 Hours) Vital Signs Temp Pulse Pulse Resp BP BP Pulse Ox 06/25/22 07:30 37.1 C 87 14 122/75 96 06/24/22 22:35 36.9 C 98 H 16 129/78 95 O2 Del Method 06/25/22 07:30 Room Air 06/24/22 22:35 Room Air PG Care Time/CCT Total # of Minutes Spent Total Time Spent with Patient: Total time spent is greater than 50% in coordination of care (as documented) at patient's floor/unit and/or counseling patient: Coding Level of Care Code 33673 Subseq Hosp Care Lvl 3 Diagnoses SBO (small bowel obstruction) K56.609 Anemia D64.9 Ovarian cancer C56.9 Severe protein-calorie malnutrition E43 Hypokalemia E87.6 Hypothyroidism E03.9 Colostomy present Z93.3 GERD (gastroesophageal reflux disease) K21.9 Hyponatremia E87.1 Ascites R18.8 Diffuse abdominal pain R10.84 Anxiety and depression F41.9; F32.9 Thrombocytopenia D69.6
[2022-06-25] MEDS: PANTOprazole 40 MG in SYRINGE 0 ML IV SCH ×2 (09:02→21:21)
[2022-06-25] MEDS: HEPARIN SOD 5,000 UNIT/0.5 ML VIAL SQ SCH ×2 (09:02→21:21)
[2022-06-25] MEDS: SERTRALINE HCL 100 MG TABLET PO SCH (09:02)
[2022-06-25] MEDS: FLUTICASONE FUROATE 100MCG 14 PUFFS/INHALER INH SCH (09:02)
[2022-06-25] MEDS: busPIRone 5 MG TAB PO SCH (09:02)
[2022-06-25] MEDS ORDERED: oxyCODONE/ACETAMINOPHEN 10-325 TAB PO PRN (09:04)
[2022-06-25] MEDS ORDERED: oxyCODONE/ACETAMINOPHEN 5mg/325mg TAB PO PRN ×2 (09:04→10:30)
[2022-06-25] MEDS ORDERED: LORazepam 0.5 MG TAB PO PRN (09:08)
[2022-06-25] MEDS ORDERED: POLYETHYLENE (MIRALAX) 17 GM PACK PO SCH (09:15)
[2022-06-25] MEDS ORDERED: SENNOSIDES 8.8 MG/5 ML UDC PO SCH (09:15)
[2022-06-25] MEDS ORDERED: TOPIRAMATE 100 MG TAB PO SCH (09:15)
[2022-06-25] MEDS: HEPARIN 100 UNIT/ML 5ML FLUSH FLUSH PRN ×2 (14:38→16:27)
[2022-06-25] MEDS: ACETAMINOPHEN 325 MG TAB PO PRN (15:51)
[2022-06-25] MEDS ORDERED: HYDROmorphone INJ 1 MG/ML SYRINGE IV PRN (16:19)
[2022-06-25] MEDS ORDERED: VANCOMYCIN CONSULT ACTIVE PRN (16:22)
[2022-06-25] MEDS ORDERED: SODIUM CHLORIDE 0.9% 1000ML 1,000 ML IV SCH ×2 (16:30→23:00)
[2022-06-25] MEDS ORDERED: VANCOMYCIN HCL 500 MG in SODIUM CHLORIDE 0.9% 500 ML IV ONE (17:00)
[2022-06-25 17:04] LABS: Basophils # (auto) 0.03 K/uL (0-0.2); Basophils % (auto) 0.3 %; Hematocrit (blood only) 26.5 % (34.1-44.9); Hemoglobin 8.6 g/dl (12.0-16.0); Immature Granulocytes # (auto) 0.14 K/uL (0.00-0.02); Immature Granulocytes % (auto) 1.4 %; Lymphocytes # (auto) 0.91 K/uL (1.2-3.4); Lymphocytes % (auto) 9.1 %; Mean Corpuscular Hemoglobin 31.2 pg (25.0-34.0); Mean Corpuscular Hgb Conc 32.5 g/dL (32.0-36.0); Mean Platelet Volume 10.6 fL (9.4-12.3); Monocytes # (auto) 1.09 K/uL (0.24-0.82); Monocytes % (auto) 10.9 %; Neutrophils % (auto) 78.3 %; Platelet Count 242 K/uL (130-400); RDW Coefficient of Variation 15.8 % (11.5-14.5); RDW Standard Deviation 54.8 fL (36.4-46.3); Red Blood Count 2.76 M/uL (3.93-5.22); White Blood Count 9.97 K/ul (4.8-10.8)
[2022-06-25 17:27] LABS: Albumin Level 2.9 gm/dl (3.4-5.0); BUN Creatinine Ratio 26.5 (10-20); Bilirubin,Total 0.3 mg/dl (0.2-1.0); Calcium 8.6 mg/dl (8.5-10.1); Creatinine Clr Calc Pharmacy 73.3 ml/min; Est GFR (African American) 127.1 ml/min; Est GFR (Non-African American) 109.7 ml/min; Magnesium 1.5 mg/dl (1.7-2.4); Potassium 3.9 mmol/L (3.5-5.1); Total Protein 5.6 gm/dl (6.0-8.3)
[2022-06-25] MEDS: CEFEPIME 2,000 MG in SYRINGE 0 ML IV SCH (17:28)
--- NOTE | 2022-06-25 17:28 | XRay Report ---
XR chest 1V portable HISTORY: sepsis COMPARISON: KUB 06/20/2022. Chest 06/18/2022. FINDINGS: No pneumothorax. No pleural effusions. The heart is normal in size. Right jugular Port-A-Ca th terminates at the SVC. The lungs are clear. Suggestion of a feeding tube within the right midabdom en. This is only partially visualized on this study. Possible left-sided pneumoperitoneum. IMPRESSION: 1. No acute process within the chest. 2. Possible left-sided pneumoperitoneum. There appears to be a right mid abdominal feeding tube. Ther efore, this could be due to recent postoperative change. This will be better assessed on the same day abdomen and pelvis CT. ACT 112: Negative or not required by law. Electronically signed by: iWlliam Jaimes M.D. 06/25/2022 5:26 PM
[2022-06-25 17:33] LABS: Troponin I High Sensitivity 6.8 pg/ml (0-14)
[2022-06-25] MEDS: metroNIDAZOLE 500 MG/100 ML BAG IV SCH (18:02)
[2022-06-25] MEDS ORDERED: OPTIRAY 350 100ml IV ONE (18:32)
--- NOTE | 2022-06-25 18:59 | CT Scan Report ---
ABDOMEN AND PELVIS CT WITH IV CONTRAST CT DOSE: 254.92 mGy.cm HISTORY: fever, abd pain, recent G tube TECHNIQUE: Multiaxial CT images of the abdomen and pelvis were performed following the use of intrave nous contrast. A dose lowering technique was utilized adhering to the principles of ALARA. COMPARISON STUDY: Abdomen and pelvis CT 06/18/2022. FINDINGS: Interval development of small bilateral pleural effusions with bibasilar linear densities c onsistent with subsegmental atelectasis. Small amount of pneumoperitoneum is new from the prior study . This is primarily anterior to the stomach and is likely due to the recent percutaneous gastrostomy tube placement. The gastrostomy tube appears in good position. No pneumatosis. No fractures within th e visualized osseous structures. Focal thickening within the anterior abdominal wall at the gastrosto my tube entry site. This favors the recent postoperative change. There is moderate body wall edema wh ich is new from the prior study. There is also edema within the abdominal wall musculature and bilate ral iliopsoas muscles. There is also presacral edema noted. Moderate gastric wall thickening. This is slightly progressed. Small to moderate amount of loculated fluid has slightly improved within the ab domen and pelvis including a right hepatic lobe subcapsular cystic lesion and a small cystic lesion a t the vaginal cuff. There is associated mild thickening of the peritoneal lining. This remains unchan ged and favors the patient's known peritoneal carcinomatosis. Secondary infection would be difficult to exclude but considered less likely given the lack of significant change. Stable peritoneal soft ti ssue deposits within the left deep pelvis on image 290. The bladder is unremarkable. Partial bowel re section with a left lower quadrant colostomy again noted. Multiple mildly dilated, fluid-filled, and thickened loops of large and small bowel are seen throughout the abdomen. Interval improvement in the gastric distention. This is similar to the prior study. The main portal vein is patent. The gallblad carlos, common adrenal glands, and pancreas unremarkable. The spleen remains mildly enlarged. Mild left hydronephrosis persists. Normal right kidney. There is a left retroaortic renal vein. No retroperiton eal lymphadenopathy. Mild thickening of the rectal stump. This has slightly progressed. IMPRESSION: 1. Interval development of small bilateral pleural effusions and moderate body wall edema. 2. Multiple mildly dilated, fluid-filled, and thickened loops of large and small bowel seen throughou t the abdomen. This is similar to the prior study. This raises the possibility of partial small bowel obstruction. 3. Small amount of pneumoperitoneum. This is likely due to the recent placement of the gastrostomy tu be. A bowel perforation is considered less likely but would also be considered in the differential di agnosis. 4. Mild left hydronephrosis, unchanged. This is likely due to the left lower quadrant peritoneal carc inomatosis. 5. Slight improvement in the small amount of ascites seen throughout the abdomen and pelvis with mild enhancement/thickening of the peritoneal lining. This likely corresponds to the patient's known michelle toneal carcinomatosis. Secondary infection would be difficult to exclude but considered less likely g iven the lack of interval change. 6. Moderate gastric wall thickening which has progressed. This could represent a gastritis or seconda ry to the recent postoperative change. 17. Moderate rectal wall thickening has also progressed suggestive of a nonspecific proctitis. ACT 112: Negative or not required by law. Electronically signed by: William Jaimes M.D. 06/25/2022 6:57 PM
--- NOTE | 2022-06-25 19:33 | Pharmacy Report ---
Pharmacy Vanc AUC Short Note - Date of Service June 25, 2022 - Assessment & Plan Assessment 57 year old F receiving vancomycin for empiric treatment. Day #1 of antimicrobial therapy: 06/25/2022 Plan Vancomycin * Load: Vancomycin 500 mg IV once on 06/25/2022 at 1802. * Maintenance: Vancomycin 750 mg IV q12h starting 06/26/2022 at 0200. * AUC/ROBERTO is the preferred PK/PD target for vancomycin * AUC guided dosing is effective and associated with decreased risk of nephrotoxicity compared to traditional trough targets * Trough level of 14 mcg/mL is predicted to achieve target AUC/ROBERTO of 400-600 mg/L.hr and may be associated with a 9 % risk of nephrotoxicity * Trough level ordered for: 06/27/22 at 0130 Pharmacy will continue to follow and will adjust dose/frequency as necessary. Thank you.
[2022-06-25] MEDS: MAGNESIUM SULFATE / D5W 1 GM/100 ML BAG IV SCH ×2 (19:38→22:19)
[2022-06-25] MEDS: ondansetron HCL 8 MG in DEXTROSE 5% 50 ML IV PRN (19:40)
[2022-06-25] MEDS: HYDROmorphone INJ 1 MG/ML SYRINGE IV PRN (21:20)
[2022-06-25] MEDS: SODIUM CHLORIDE 0.9% 1000ML 500 ML IV ONE ×2 (22:25→22:30)
[2022-06-25] MEDS ORDERED: ALBUMIN 25% 100 mL 25 GM/100 ML VIAL IV ONE (22:25)
[2022-06-26] MEDS: KETOROLAC TROMETHAMINE 15 MG/ML VIAL IV PRN ×2 (01:46→08:46)
[2022-06-26] MEDS: CEFEPIME 2,000 MG in SYRINGE 0 ML IV SCH ×3 (02:11→16:05)
[2022-06-26] MEDS: metroNIDAZOLE 500 MG/100 ML BAG IV SCH ×3 (02:21→17:26)
[2022-06-26] MEDS: VANCOMYCIN HCL 750 MG in SODIUM CHLORIDE 0.9% 250 ML IV SCH ×2 (02:27→14:25)
[2022-06-26] MEDS: ACETAMINOPHEN 325 MG TAB PO PRN (02:27)
[2022-06-26] MEDS ORDERED: ACETAMINOPHEN 10MG/ML Custom 550 MG in EMPTY BAG 0 ML IV ONE (02:45)
[2022-06-26] MEDS: HYDROmorphone INJ 1 MG/ML SYRINGE IV PRN ×5 (03:36→21:27)
[2022-06-26] MEDS: ondansetron HCL 8 MG in DEXTROSE 5% 50 ML IV PRN ×3 (03:58→22:12)
[2022-06-26] MEDS: LEVOTHYROXINE SODIUM 25 MCG TABLET PO SCH (05:49)
--- NOTE | 2022-06-26 05:54 | Communication Note ---
Date of Service: June 26, 2022 notified by patient's RN that she was becoming hypotensive into the respiratory therapy aide at the bedside patient is sleeping comfortably. noted she received Dilaudid around 0340 this AM she responds to questions appropriately and tells me she actually feels better compared to prior -- pain is much reduced since Dilaudid she denies any pain to me at this time and reports breathing feels ok she does report rigors overnight, as does her RN BP 84/49, HR 100, RR 18, SpO2 >98% on 2L / general - ill appearing 57yoF who is tired but responds to questions appropriately / abd - mildly distended, TTP in the central abdomen, no rebound/guarding / extremities - capillary refill 3 seconds Stat labs revealing white count 16 (from 10) with left shift, hemoglobin 6.3 (from 8.6), platelets 179 (from 242), sodium 135, creatinine 0.54, CRP 30.7, a.m. cortisol 23, lactate 0.6. [place] pending. Hypotensionpossible that this represents a multifactorial etiology, including sepsis and anemia (? Acute blood loss atop chronic anemia in the setting of recent G-tube placement, on Lovenox prophylaxis) -- however, lactate is reassuringly normal from the sepsis perspective. Fluid ongoing and s/p several bolus. Received 2 x 25g of 25% albumin. Treatments otherwise as below. Maintain MAP > 65. Anemia - While I do suspect at least part of the anemia is dilutional (she is about 4 L positive over the last 24 hours, although output is not completely accurate per nursing) and built up on her chronic anemia, her recent GI surgery and Lovenox prophylaxis are noted. No obvious bleed on CT-A/P yesterday and her belly is currently not demonstrating peritoneal signs. 2 units packed blood cells were ordered. Serial exams. Leukocytosis - Continue broad spectrum ABX, await BCX, procal. Lactate normal. Discussed this case with overnight direct mail coordinator EDGARDO, who will discuss with day team. I discussed this case with Dr. Haynes. Patient's updated over the phone. This documentation was created utilizing dictation software. As such, syntax, grammatical, and word-choice errors may be present. Notes are screened prior to submission in an attempt to reduce these errors. If there are any questions or concerns, please contact the author directly for clarification.
[2022-06-26] MEDS ORDERED: SODIUM CHLORIDE 0.9% 1000ML 250 ML IV ONE (06:10)
[2022-06-26] MEDS ORDERED: ALBUMIN 25% 100 mL 25 GM/100 ML VIAL IV ONE (06:30)
[2022-06-26 06:33] LABS: Hematocrit (blood only) 19.5 % (34.1-44.9); Hemoglobin 6.3 g/dl (12.0-16.0); Mean Corpuscular Hemoglobin 31.7 pg (25.0-34.0); Mean Corpuscular Hgb Conc 32.3 g/dL (32.0-36.0); Mean Platelet Volume 10.4 fL (9.4-12.3); Platelet Count 179 K/uL (130-400); RDW Coefficient of Variation 16.2 % (11.5-14.5); RDW Standard Deviation 57.1 fL (36.4-46.3); Red Blood Count 1.99 M/uL (3.93-5.22); White Blood Count 16.07 K/ul (4.8-10.8)
[2022-06-26 06:34] LABS: Albumin Globulin Ratio 1.3 (0.9-2); Albumin Level 2.7 gm/dl (3.4-5.0); BUN Creatinine Ratio 20.4 (10-20); Bilirubin,Total 0.4 mg/dl (0.2-1.0); Calcium 7.5 mg/dl (8.5-10.1); Creatinine Clr Calc Pharmacy 66.5 ml/min; Est GFR (African American) 123.1 ml/min; Est GFR (Non-African American) 106.2 ml/min; Globulin 2.1 gm/dl (2.5-4.0); Magnesium 1.8 mg/dl (1.7-2.4); Phosphorus 3.5 mg/dl (2.5-4.9); Potassium 3.6 mmol/L (3.5-5.1); Total Protein 4.8 gm/dl (6.0-8.3)
[2022-06-26 06:35] LABS: Basophils # (auto) 0.03 K/uL (0-0.2); Basophils % (auto) 0.2 %; Immature Granulocytes # (auto) 0.09 K/uL (0.00-0.02); Immature Granulocytes % (auto) 0.6 %; Lymphocytes # (auto) 0.44 K/uL (1.2-3.4); Lymphocytes % (auto) 2.7 %; Monocytes # (auto) 1.45 K/uL (0.24-0.82); Neutrophils # (auto) 14.06 K/uL (1.4-6.5); Neutrophils % (auto) 87.5 %; RBC Morphology Unremarkable
[2022-06-26 06:52] LABS: C Reactive Protein 30.73 mg/dl (0-0.5)
[2022-06-26] MEDS ORDERED: SODIUM CHLORIDE 0.9% 250 ML IV PRN ×2 (07:19)
--- NOTE | 2022-06-26 07:55 | Hospitalist Progress Note ---
Date of Service June 26, 2022 Assessment & Plan (1) SBO (small bowel obstruction): Plan: 57-year-old female past medical history metastatic ovarian cancer with peritoneal carcinomatosis and ascites, recurrent SBO, GERD, asthma, anxiety/depression admitted for recurrent SBO. Partial SBO - Multifactorial. W/ ascites now s/p therapeutic paracentesis, hx multiple abdominal surgeries, adhesions, and intra-abdominal malignancy. - Bowel perforation workup pending (CT A/P, IV contrast) - Presented with abdominal pain and nausea, with CTAP showing partial small bowel obstruction. - S/p EGD with PEG tube placement 06/[address] Celeste. NPO - Pain control: IV Dilaudid prn q4h, scheduled IV Tylenol. Holding Toradol. Anemia - Chronic, present on admission. With past gastric occult test positive. Hemoglobin decreased to 6.9 after receiving IV fluids on 06/18. Hemoglobin 6.3, down from 8.6. Now status post transfusion of 2 units packed red blood cells. Trend CBC Ovarian cancer High-grade ovarian carcinoma diagnosed 03/2020; has received combination of chemotherapy and initial surgery which was performed at [facility] [place]. Has Neulasta Onpro device. Avastin last given ~6 weeks ago. Baseline hemoglobin fluctuates from 7.510.0 in the setting of chemotherapy and malignancy, with associated thrombocytopenia to 28 on admission. Last completed chemo carbop/doxil ~20 days ago, suspect thrombocytopenia is 2/2 chemo toxic effect. - Therapeutic paracentesis q4-6 weeks, performed 06/19 with output of about 1 L. - Dr. Naylor oncology aware of patient's admission, will follow peripherally with follow up after discharge unless oncologic needs arise while inpatient. Protein calorie malnutrition - History of weight loss (weighed 110 lbs prior to cancer diagnosis), hypoglycemia, several admissions for small bowel obstruction during which she was n.p.o. and required parenteral nutrition. - Continue parenteral nutrition with assistance by pharmacy/dietitian for caloric needs, until adequate oral intake. - Replete electrolytes as necessary. Hypothyroidism -Continue home levothyroxine Anxiety/depression Continue sertraline. Continue Ativan 0.5 mg PO twice daily as needed. DVT prophylaxis: Stopped SQ heparin CODE STATUS: Full code Disposition: Med/Surg Diet: NPO (2) Anemia: (3) Ovarian cancer: (4) Severe protein-calorie malnutrition: (5) Hypokalemia: (6) Hypothyroidism: (7) Colostomy present: (8) GERD (gastroesophageal reflux disease): (9) Hyponatremia: (10) Ascites: (11) Diffuse abdominal pain: (12) Anxiety and depression: (13) Thrombocytopenia: Admission and Anticipated Discharge Date Admission Date: June 18, 2022 Supervising Physician Co-Signing Physician Notes I personally examined the patient and verified all francis points of history and exam, discussed case, and agree with decision making with Dr Haynes seen twice - worth abdominal pain overnight. later pain much more manageable. vitals noted nad heent nc at mmm breathing unlabored earlier L sided abdominal pain w voluntary guarding later soft. no blood in peg drainage or ostomy blood. no focal neuro deficits. breathing unlabored no accessory muscles good effort skin no rashes no pallor or icterus anemia, presumed sepsis - repeat CT surprisingly reassurring. bili mildly up - ?sepsis w intravascular hemolysis. continue aggressive supportive care. close f/u. otherwise as above Subjective Overnight, patient had 2 episodes of hypotension (see communication note). Today, she reports new neck, shoulder, mild abdominal pain. She also reports mild but progressing headache (patient has history of migraines). She denies shortness of breath, dizziness, vision changes. She is alert and oriented x4. She feels a bit hungry today. Review of Systems Review of Systems: All systems reviewed & are unremarkable except as noted in HPI & below Physical Exam Physical Exam: General: Frail-appearing, but otherwise alert, interactive woman in no acute distress. HEENT: Normocephalic, atraumatic. EOM intact. Good conjugate gaze. Nares patent. Moist mucosal membranes. Neck: Supple. No lymphadenopathy. Normal ROM. CV: Regular rate and rhythm. Normal S1 and S2. No murmurs gallops or rubs. Respiratory: Normal respiratory effort. Lungs clear to auscultation bilaterally. No crackles, rhonchi, or wheezes. Abdomen: Soft, nondistended abdomen. No bruits heard on auscultation. Mild tenderness to deep palpation. No guarding or rebound. Extremities: Capillary refill <2 sec. 2+ dp equal bilaterally. No pedal edema. Neuro: Alert and oriented x4. Skin: Clean, dry, and intact. No rashes, bruises, or erythema. Results & Data Results & Data ([facility]) Vital Signs (Past 12 Hours) Vital Signs Temp Pulse Pulse Pulse Resp BP BP 06/26/22 07:35 36.6 C 95 H 16 97/64 L 06/26/22 07:08 88/58 L 06/26/22 06:35 92/53 L 06/26/22 06:18 85/46 L 06/26/22 06:00 86/56 L 06/26/22 05:47 85/50 L 06/26/22 05:30 37.1 C 100 H 18 84/49 L 06/26/22 04:10 37.2 C 125 H 18 103/61 06/25/22 22:09 109 H 06/26/22 02:06 37.8 C H 135 H 18 120/71 06/26/22 01:39 116/72 06/26/22 00:47 111/75 06/26/22 00:42 06/26/22 00:14 109/70 06/25/22 23:41 130 H 116/73 06/25/22 23:24 100/67 06/25/22 23:07 100/64 06/25/22 22:46 123 H 100/63 06/25/22 22:30 99/66 L 06/25/22 22:00 36.8 C 113 H 18 95/61 L Pulse Ox O2 Del Method O2 Flow Rate 06/26/22 07:35 96 Room Air 06/26/22 07:08 06/26/22 06:35 06/26/22 06:18 06/26/22 06:00 06/26/22 05:47 06/26/22 05:30 98 Nasal Cannula 2 06/26/22 04:10 95 Nasal Cannula 2 06/25/22 22:09 06/26/22 02:06 96 Room Air 06/26/22 01:39 06/26/22 00:47 06/26/22 00:42 Room Air 06/26/22 00:14 06/25/22 23:41 06/25/22 23:24 06/25/22 23:07 06/25/22 22:46 06/25/22 22:30 06/25/22 22:00 97 Room Air Resident Activity Tracking Resident Involvement: Resident Care Provided Care Provided: Adult [facility]
[2022-06-26] MEDS: PANTOprazole 40 MG in SYRINGE 0 ML IV SCH ×2 (08:32→19:43)
[2022-06-26] MEDS: HEPARIN SOD 5,000 UNIT/0.5 ML VIAL SQ SCH ×2 (08:33→19:41)
[2022-06-26] MEDS: FLUTICASONE FUROATE 100MCG 14 PUFFS/INHALER INH SCH (10:02)
[2022-06-26] MEDS: SERTRALINE HCL 100 MG TABLET PO SCH (10:02)
--- NOTE | 2022-06-26 10:05 | Surgery Progress Note ---
Date of Service June 26, 2022 Assessment & Plan (1) Partial obstruction of small intestine: Plan: POD 5 venting PEG urine, blood cultures pending there does not appear to be abdominal source for fever/hypotension continue G tube to LIWS or gravity for next 24 hours Admission and Anticipated Discharge Date Admission Date: June 18, 2022 Subjective was doing ok with liquids, developed fever and malaise yesterday G tube to suction, some liquid stool from ostomy, transfered to PCU this AM for hypotension and received fluid bolus, PRBCs infusing now Physical Exam Constitutional: + frail appearing (unchanged) Gastrointestinal (Abdomen): Inspection/Auscultation: + abdomen distended (minimal) Percussion/Palpation: + abdomen tender (mild) and abdomen soft N G clear light green, no blood Results & Data ([facility]) Vital Signs (Past 12 Hours) Vital Signs Temp Pulse Pulse Pulse Resp BP BP 06/26/22 09:15 36.8 C 92 H 12 89/64 L 06/26/22 09:00 36.8 C 98 H 12 91/68 L 06/26/22 08:49 36.7 C 101 H 16 97/63 L 06/26/22 08:45 36.8 C 109 H 18 91/61 L 06/26/22 07:35 36.6 C 95 H 16 97/64 L 06/26/22 07:08 88/58 L 06/26/22 06:35 92/53 L 06/26/22 06:18 85/46 L 06/26/22 06:00 86/56 L 06/26/22 05:47 06/26/22 05:30 37.1 C 100 H 18 84/49 L 06/26/22 04:10 37.2 C 125 H 18 103/61 06/25/22 22:09 109 H 06/26/22 02:06 37.8 C H 135 H 18 120/71 06/26/22 01:39 06/26/22 00:47 06/26/22 00:42 06/26/22 00:14 109/70 06/25/22 23:41 130 H 06/25/22 23:24 06/25/22 23:07 100/64 06/25/22 22:46 123 H 06/25/22 22:30 BP Pulse Ox O2 Del Method O2 Flow Rate 06/26/22 09:15 96 06/26/22 09:00 95 06/26/22 08:49 06/26/22 08:45 97 06/26/22 07:35 96 Room Air 06/26/22 07:08 06/26/22 06:35 06/26/22 06:18 06/26/22 06:00 06/26/22 05:47 85/50 L 06/26/22 05:30 98 Nasal Cannula 2 06/26/22 04:10 95 Nasal Cannula 2 06/25/22 22:09 06/26/22 02:06 96 Room Air 06/26/22 01:39 116/72 06/26/22 00:47 111/75 06/26/22 00:42 Room Air 06/26/22 00:14 06/25/22 23:41 116/73 06/25/22 23:24 100/67 06/25/22 23:07 06/25/22 22:46 100/63 06/25/22 22:30 99/66 L PG Care Time/CCT Total # of Minutes Spent Total Time Spent with Patient: Total time spent is greater than 50% in coordination of care (as documented) at patient's floor/unit and/or counseling patient: Coding Level of Care Code None Diagnoses Partial obstruction of small intestine K56.600
[2022-06-26] MEDS ORDERED: HYDROmorphone INJ 1 MG/ML SYRINGE IV PRN (11:18)
[2022-06-26] MEDS: ACETAMINOPHEN 1,000 MG/100 ML VIAL IV SCH ×2 (12:00→19:38)
[2022-06-26] MEDS ORDERED: OPTIRAY 350 100ml IV ONE (14:16)
--- NOTE | 2022-06-26 14:44 | CT Scan Report ---
CT OF THE ABDOMEN AND PELVIS WITH CONTRAST CLINICAL HISTORY: Abdominal pain. Recent G-tube placement. Ovarian cancer. Evaluate for bowel perfora tion. COMPARISON STUDY: CT of the abdomen and pelvis June 25, 2022. TECHNIQUE: Following IV administration of 88 mL of Optiray, axial images of the abdomen and pelvis we re obtained from the lung bases to the proximal femurs. Images were reviewed in the axial, sagittal, and coronal planes. IV contrast was administered without complication. Automated exposure control wa s utilized for the study. A dose lowering technique was utilized adhering to the principles of ALARA . Oral contrast was administered. CT DOSE: 262.61 mGycm FINDINGS: Small to moderate bilateral pleural effusions are partially imaged. Subpleural opacities fa vor atelectasis. Interlobular septal thickening represents mild interstitial pulmonary edema. A small amount of pneumoperitoneum has decreased since CT of June 25, 2022. Gastrostomy tube is in place. Small amount of ascites with peritoneal thickening and enhancement is similar to prior exam. Splenom egaly is unchanged. A cystic lesion along the right hepatic lobe is unchanged. There is no biliary or pancreatic ductal dilatation. No right hydronephrosis is present. Mild to moderate left hydrouretero nephrosis is similar to prior exam. The left ureter is dilated to the level of the pelvis. Rectal wal l thickening is again noted with perirectal stranding and fluid is unchanged. There is no adjacent ex traluminal gas. Hyperdense material within the rectal stump is again noted. Oral contrast reaches the terminal ileum. Terminal ileum is relatively decompressed. Left lower quadrant descending colostomy is present. The proximal duodenum is moderately distended. There is decreased aortomesenteric distanc e. However, contrast passed beyond this point. Multiple loops of mildly dilated small bowel are noted . This is similar to prior exam. There is no evidence for a high-grade bowel obstruction. Anasarca is present. Major vasculature is patent. IMPRESSION: 1. Small amount of pneumoperitoneum, decreased since CT of June 25, 2022. Therefore, this is likel y related to gastrostomy tube placement. 2. No significant change in mild small bowel dilatation since prior exam. However, contrast reaches t he terminal ileum. The findings may reflect a partial small bowel obstruction or ileus. 3. No change in a small amount of ascites with peritoneal thickening and enhancement. This enhancemen t is likely related to known peritoneal carcinomatosis. Secondary infection would be difficult to exc lude but is considered less likely. 4. No change in mild to moderate left hydronephrosis. This is likely due to left lower quadrant perit fung carcinomatosis. 5. Small to moderate bilateral pleural effusions. Mild interstitial pulmonary edema. Anasarca. 6. No change in rectal wall thickening with adjacent stranding and fluid which may reflect a nonspeci fic proctitis. ACT 112: Negative or not required by law. Electronically signed by: Jose Gottlieb M.D. 06/26/2022 2:42 PM
[2022-06-26] MEDS: METHYLNALTREXONE BROMIDE 12 MG/0.6 ML VIAL SQ SCH (16:05)
--- NOTE | 2022-06-26 16:51 | Electrocardiogram Report ---
Test Reason : Blood Pressure : / mmHG Vent. Rate : 130 BPM Atrial Rate : 130 BPM P-R Int : 118 ms QRS Dur : 066 ms QT Int : 278 ms P-R-T Axes : 062 032 067 degrees QTc Int : 409 ms Poor data quality, interpretation may be adversely affected Sinus tachycardia Otherwise normal ECG When compared with ECG of 02-JUN-2022 21:24, No significant change was found Confirmed by Samuel Rojas ([id number]) on 06/26/2022 4:50:57 PM Referred By: REFERRED SELF Confirmed By:Samuel Rojas
[2022-06-26 17:17] LABS: Hematocrit (blood only) 32.6 % (34.1-44.9); Hemoglobin 10.7 g/dl (12.0-16.0); Mean Corpuscular Hemoglobin 30.4 pg (25.0-34.0); Mean Corpuscular Hgb Conc 32.8 g/dL (32.0-36.0); Mean Corpuscular Volume 92.6 fL (80.0-100.0); Mean Platelet Volume 10.2 fL (9.4-12.3); Platelet Count 194 K/uL (130-400); RDW Coefficient of Variation 17.9 % (11.5-14.5); RDW Standard Deviation 60.1 fL (36.4-46.3); Red Blood Count 3.52 M/uL (3.93-5.22); White Blood Count 14.45 K/ul (4.8-10.8)
[2022-06-26 17:34] LABS: Basophils # (auto) 0.06 K/uL (0-0.2); Basophils % (auto) 0.4 %; Dohle Bodies 2+; Echinocytes 1+; Immature Granulocytes # (auto) 0.08 K/uL (0.00-0.02); Immature Granulocytes % (auto) 0.6 %; Lymphocytes % (auto) 5.5 %; Monocytes # (auto) 0.84 K/uL (0.24-0.82); Monocytes % (auto) 5.8 %; Neutrophils # (auto) 12.67 K/uL (1.4-6.5); Neutrophils % (auto) 87.7 %; Toxic Granulation 1+
[2022-06-26 18:11] LABS: BUN Creatinine Ratio 19.7 (10-20); Bilirubin,Total 1.2 mg/dl (0.2-1.0); C Reactive Protein 44.4 mg/dl (0-0.5); Creatinine Clr Calc Pharmacy 54.4 ml/min; Est GFR (African American) 115.3 ml/min; Est GFR (Non-African American) 99.4 ml/min; Potassium 3.8 mmol/L (3.5-5.1)
[2022-06-26] MEDS ORDERED: SODIUM CHLORIDE 0.9% 1000ML 1,000 ML IV SCH (19:15)
--- NOTE | 2022-06-26 19:25 | Billing Data ---
Date of Service June 26, 2022 Coding Level of Care Code 45124 Subseq Hosp Care Lvl 3
[2022-06-27] MEDS: DEXTROSE 10% 1,000 ML IV PRN ×2 (00:05→06:01)
[2022-06-27] MEDS: CEFEPIME 2,000 MG in SYRINGE 0 ML IV SCH ×3 (01:21→16:57)
[2022-06-27] MEDS: metroNIDAZOLE 500 MG/100 ML BAG IV SCH ×3 (01:21→16:58)
[2022-06-27] MEDS: HYDROmorphone INJ 1 MG/ML SYRINGE IV PRN ×6 (01:27→21:34)
[2022-06-27] MEDS: LORazepam 0.5 MG in SYRINGE 0 ML IV PRN ×2 (01:58→21:41)
[2022-06-27] MEDS: VANCOMYCIN HCL 750 MG in SODIUM CHLORIDE 0.9% 250 ML IV SCH ×2 (02:00→13:52)
[2022-06-27] MEDS: ACETAMINOPHEN 1,000 MG/100 ML VIAL IV SCH ×3 (03:28→19:53)
[2022-06-27] MEDS: LEVOTHYROXINE SODIUM 25 MCG TABLET PO SCH (03:28)
[2022-06-27] MEDS ORDERED: DEXTROSE 50% 50 ML SYRINGE IV ONE (06:09)
[2022-06-27] MEDS ORDERED: D5W AND 1/2NSS + 20MEQ KCL 20 MEQ/1,000 ML BAG IV SCH (06:30)
[2022-06-27 07:16] LABS: Creatinine Clr Calc Pharmacy 70.4 ml/min
[2022-06-27] MEDS: SERTRALINE HCL 100 MG TABLET PO SCH ×2 (08:27→13:43)
[2022-06-27] MEDS: PANTOprazole 40 MG in SYRINGE 0 ML IV SCH ×2 (08:28→21:37)
[2022-06-27] MEDS: HEPARIN SOD 5,000 UNIT/0.5 ML VIAL SQ SCH ×2 (08:29→21:37)
[2022-06-27] MEDS: FLUTICASONE FUROATE 100MCG 14 PUFFS/INHALER INH SCH (08:29)
[2022-06-27 09:09] LABS: Hematocrit (blood only) 27.7 % (34.1-44.9); Hemoglobin 9.4 g/dl (12.0-16.0); Mean Corpuscular Hemoglobin 30.5 pg (25.0-34.0); Mean Corpuscular Hgb Conc 33.9 g/dL (32.0-36.0); Mean Corpuscular Volume 89.9 fL (80.0-100.0); Mean Platelet Volume 10.3 fL (9.4-12.3); Platelet Count 187 K/uL (130-400); RDW Coefficient of Variation 18.7 % (11.5-14.5); Red Blood Count 3.08 M/uL (3.93-5.22); White Blood Count 17.09 K/ul (4.8-10.8)
[2022-06-27] MEDS: NYSTATIN/TRIAMCIN OINT 15 GM TUBE EXT SCH ×2 (09:18→21:36)
[2022-06-27 09:31] LABS: Albumin Globulin Ratio 1.2 (0.9-2); Albumin Level 2.6 gm/dl (3.4-5.0); BUN Creatinine Ratio 21.7 (10-20); Bilirubin,Total 0.5 mg/dl (0.2-1.0); Calcium 7.5 mg/dl (8.5-10.1); Creatinine Clr Calc Pharmacy 64.3 ml/min; Est GFR (African American) 113.6 ml/min; Globulin 2.2 gm/dl (2.5-4.0); Potassium 3.2 mmol/L (3.5-5.1); Total Protein 4.8 gm/dl (6.0-8.3)
[2022-06-27 09:47] LABS: Basophils # (auto) 0.06 K/uL (0-0.2); Basophils % (auto) 0.4 %; Echinocytes 1+; Eosinophils # (auto) 0.02 K/uL (0-0.50); Eosinophils % (auto) 0.1 %; Immature Granulocytes # (auto) 0.14 K/uL (0.00-0.02); Immature Granulocytes % (auto) 0.8 %; Lymphocytes # (auto) 0.53 K/uL (1.2-3.4); Lymphocytes % (auto) 3.1 %; Monocytes # (auto) 0.78 K/uL (0.24-0.82); Monocytes % (auto) 4.6 %; Neutrophils # (auto) 15.56 K/uL (1.4-6.5)
--- NOTE | 2022-06-27 10:00 | XRay Report ---
KUB CLINICAL HISTORY: Small bowel obstruction. COMPARISON STUDY: CT of the abdomen and pelvis June 26, 2022. FINDINGS: Gastrostomy tube is incidentally noted. Persistent opacification of the left collecting sys tem and ureter is noted with hydroureteronephrosis. This was shown on prior CT. There is contrast wit hin the bladder. Oral contrast has reached the colon. Persistent mild small bowel dilatation is noted . Small bowel loops measure up to 3.4 cm in caliber. IMPRESSION: 1. Persistent mild small bowel dilatation. This may reflect a partial small bowel obstruction or ileu s. However, oral contrast has reached the colon. 2. Redemonstration of left hydroureteronephrosis. ACT 112: Negative or not required by law. Electronically signed by: Jose Gottlieb M.D. 06/27/2022 9:58 AM
--- NOTE | 2022-06-27 10:52 | Pharmacy Report ---
Pharmacy PK ABX Note - Date of Service June 27, 2022 - Assessment and Plan Assessment 57 year old F receiving vancomycin/cefepime/Flagyl for treatment of empiric- febrile. Pertinent microbiologic data includes: N/a. Day # 3/7 of antimicrobial therapy. Plan Vancomycin * Maintenance dose: 750 mg IV every 12 hours * Regimen is predicted to achieve target AUC/ROBERTO of 400-600 mg/L.hr * Repeat level if extended beyond Sunday (06/30/22) Pharmacy will continue to follow and will adjust dose/frequency as necessary. Thank you. Pharmacy has transitioned to AUC monitoring for vancomycin. AUC/ROBERTO is the preferred PK/PD target and is associated with decreased risk of nephrotoxicity compared to traditional trough targets.
--- NOTE | 2022-06-27 10:53 | Surgery Progress Note ---
Date of Service June 27, 2022 Assessment & Plan (1) Partial obstruction of small intestine: Plan: Had been improving however minimal stoma output. We will repeat KUB. If shows improvement I would like to start clears if possible. Will discuss with primary team first. Persistent leukocytosis. No fever overnight and no new symptoms. Questionable etiology. The feeding tube did need tightened. I did this at the bedside and showed the nurse how to do it if she gets leakage in the future. I am going to put some antifungal powder around the PEG tube site as well to treat what is a likely yeast dermatitis. We will continue to follow along closely (2) Anemia: (3) Severe protein-calorie malnutrition: Admission and Anticipated Discharge Date Admission Date: June 18, 2022 Subjective Patient seen. No new complaints today. Continues to have some back and neck pain. Occasional abdominal pain. Physical Exam Physical Exam: Alert and oriented no acute distress Gastrointestinal (Abdomen): Soft. Feeding tube in place with a small amount of bile leakage around it. Also some mild erythema consistent with a yeast infection. Minimal distention and tenderness. Stoma with minimal output Results & Data ([facility]) Vital Signs (Past 12 Hours) Vital Signs Temp Pulse Resp BP Pulse Ox O2 Del Method 06/27/22 07:16 36.3 C L 86 14 96/59 L 92 Room Air 06/27/22 03:12 36.3 C L 84 20 96/61 L 91 Room Air 06/26/22 22:57 36.6 C 80 20 95/57 L 90 Room Air PG Care Time/CCT Total # of Minutes Spent Total Time Spent with Patient: Total time spent is greater than 50% in coordination of care (as documented) at patient's floor/unit and/or counseling patient: Coding Level of Care Code 64388 Subseq Hosp Care Lvl 2 Diagnoses Partial obstruction of small intestine K56.600 Anemia D64.9 Severe protein-calorie malnutrition E43
[2022-06-27] MEDS ORDERED: TPN/PPN CONSULT PHARMACY PRN (12:35)
[2022-06-27] MEDS ORDERED: POTASSIUM CHLORIDE CRTAB 20 MEQ TABCR PO STA (12:54)
[2022-06-27] MEDS ORDERED: DEXTROSE 10% 1,000 ML IV PRN (13:20)
[2022-06-27] MEDS: POTASSIUM CHLORIDE / WTR 10 MEQ/100 ML PLCT IV SCH ×4 (13:52→17:13)
[2022-06-27] MEDS ORDERED: CENTRAL TPN IV SCH (16:00)
[2022-06-27] MEDS ORDERED: AMINO ACID 8% IV SCH (16:00)
[2022-06-27] MEDS ORDERED: CLINOLIPID 20% IV SCH (16:00)
[2022-06-27] MEDS ORDERED: FAT EMULSION IV SCH (16:00)
[2022-06-27] MEDS ORDERED: [UNRECOGNIZED DRUG - OTHER] IV SCH (16:00)
[2022-06-27] MEDS ORDERED: PROMETHAZINE HCL 6.25 MG in SODIUM CHLORIDE 0.9% 50 ML IV STA (16:41)
--- NOTE | 2022-06-27 19:12 | Hospitalist Progress Note ---
Date of Service June 27, 2022 Assessment & Plan (1) SBO (small bowel obstruction): Plan: 57-year-old female past medical history metastatic ovarian cancer with peritoneal carcinomatosis and ascites, recurrent SBO, GERD, asthma, anxiety/depression admitted for recurrent SBO. Partial SBO - Multifactorial. W/ ascites now s/p therapeutic paracentesis, hx multiple abdominal surgeries, adhesions, and intra-abdominal malignancy. - Bowel perforation workup pending (CT A/P, IV contrast) - Presented with abdominal pain and nausea, with CTAP showing partial small bowel obstruction. - S/p EGD with PEG tube placement 06/[address] Celeste. NPO - Pain control: IV Dilaudid prn q4h, scheduled IV Tylenol. Holding Toradol. Anemia - Chronic, present on admission. With past gastric occult test positive. Hemoglobin decreased to 6.9 after receiving IV fluids on 06/18. Hemoglobin 6.3, down from 8.6. Now status post transfusion of 2 units packed red blood cells. Trend CBC Hematology consult placed today to evaluate concern for terminal deterioration secondary to cancer. Appreciate recs. Ovarian cancer High-grade ovarian carcinoma diagnosed 03/2020; has received combination of chemotherapy and initial surgery which was performed at [facility]. Has Neulasta Onpro device. Avastin last given ~6 weeks ago. Baseline hemoglobin fluctuates from 7.510.0 in the setting of chemotherapy and malignancy, with associated thrombocytopenia to 28 on admission. Last completed chemo carbop/doxil ~20 days ago, suspect thrombocytopenia is 2/2 chemo toxic effect. - Therapeutic paracentesis q4-6 weeks, performed 06/19 with output of about 1 L. - Dr. Naylor oncology aware of patient's admission, will follow peripherally with follow up after discharge unless oncologic needs arise while inpatient. Consult placed to Dr. Burch (see above). Protein calorie malnutrition - History of weight loss (weighed 110 lbs prior to cancer diagnosis), hypoglycemia, several admissions for small bowel obstruction during which she was n.p.o. and required parenteral nutrition. - Continue parenteral nutrition with assistance by pharmacy/dietitian for caloric needs, until adequate oral intake. - Replete electrolytes as necessary. Hypothyroidism -Continue home levothyroxine Anxiety/depression Continue sertraline. Continue Ativan 0.5 mg PO twice daily as needed. DVT prophylaxis: Stopped SQ heparin CODE STATUS: Full code Disposition: Med/Surg Diet: NPO (2) Anemia: (3) Ovarian cancer: (4) Severe protein-calorie malnutrition: (5) Hypokalemia: (6) Hypothyroidism: (7) Colostomy present: (8) GERD (gastroesophageal reflux disease): (9) Hyponatremia: (10) Ascites: (11) Diffuse abdominal pain: (12) Anxiety and depression: (13) Thrombocytopenia: Admission and Anticipated Discharge Date Admission Date: June 18, 2022 Supervising Physician Co-Signing Physician Notes I personally examined the patient and verified all francis points of history and exam, discussed case, and agree with decision making with Dr Haynes seen twice -very fatigued but eating clears when I first saw her. Later much more awake and alert, a bit more nauseated, but reasonable control. Has not had Neulasta or chemotherapy in about 4 weeks vitals noted nad heent nc at mmm breathing unlabored no accessory muscle use good effort. Abdomen is soft mildly firm but no guarding rebound or rigidity. Skin shows no rashes no pallor or icterus. anemia, presumed sepsis - repeat CT surprisingly reassurring. Etiology not entirely clear. Situation has stabilized posttransfusion and with initiation of broad antibiotics. Either sepsis of uncertain source or concern on decompensation related to cancerwe will ask hematology for opinion. Doubt chemo/Neulasta related given that its been about 4 weeks. otherwise as above Subjective Overnight, patient had the episode of hypoglycemia that Was resolved with D50. Today, she reports improvement in abdominal pain, and is passing gas and about to have a bowel movement on arrival. She would like to attempt trial of breakfast. Review of Systems Review of Systems: All systems reviewed & are unremarkable except as noted in HPI & below Physical Exam Physical Exam: General: Frail-appearing, but otherwise alert, interactive woman in no acute distress. HEENT: Normocephalic, atraumatic. EOM intact. Good conjugate gaze. Nares patent. Moist mucosal membranes. Neck: Supple. No lymphadenopathy. Normal ROM. CV: Regular rate and rhythm. Normal S1 and S2. No murmurs gallops or rubs. Respiratory: Normal respiratory effort. Lungs clear to auscultation bilaterally. No crackles, rhonchi, or wheezes. Abdomen: Soft, nondistended abdomen. Mild tenderness to deep palpation. Extremities: Capillary refill <2 sec. 2+ dp equal bilaterally. No pedal edema. Neuro: Alert and oriented x4. Skin: Clean, dry, and intact. No rashes, bruises, or erythema. Results & Data Results & Data ([facility]) Vital Signs (Past 12 Hours) Vital Signs Temp Pulse Pulse Resp BP Pulse Ox O2 Del Method 06/27/22 15:31 36.3 C L 95 H 16 116/76 97 Room Air 06/27/22 11:23 36.4 C L 84 18 97/56 L 95 Room Air 06/27/22 07:16 36.3 C L 86 14 96/59 L 92 Room Air Resident Activity Tracking Resident Involvement: Resident Care Provided Care Provided: Adult Hospital Medicine
--- NOTE | 2022-06-27 19:46 | Billing Data ---
Date of Service June 27, 2022 Coding Level of Care Code 90613 Subseq Hosp Care Lvl 3
--- NOTE | 2022-06-27 19:52 | Consultation ---
Date of Consultation June 27, 2022 Assessment & Plan (1) Ovarian cancer: While there had been some tumor marker response to the Doxil/carboplatinum it has not been dramatic and she continues to be plagued by recurrent small bowel obstruction, signs of persistent peritoneal carcinomatosis, and in fact has most recently had a slight secondary rise in the tumor marker. She had already spontaneously started a discussion as to a possible transition towards a more pure palliative care approach but she would like to first get definitive input from [facility] - we have submitted all recent data to them and she will have a televisit next Sunday. Depending on how aggressively they feel she should explore further oncology specific treatment interventions we can determine the need for a comprehensive palliative care discussion to set appropriate parameters of care and perhaps determine the pros and cons of ongoing hyperalimentation and other more aggressive supportive interventions beyond basic symptom management if we are not going to continue to be similarly aggressive with respect to the cancer itself. She has benefited greatly from the venting gastrostomy but the need for that almost certainly indicates that she will have little to no capacity for enteral nutrition absorption going forward (2) Leukocytosis: Cannot completely exclude an infection and in fact there may have been a mild defervescence with the start of antibiotics but there could certainly be an miley ment of a "leukemoid" reaction as a consequence of the noninfectious inflammation within the abdomen. She has been on chemotherapy fairly continuously up until her most recent dose June 02 and may not have had the ability to mount a reactive leukocytosis prior to this. She has adequate platelets and a persistent but not dramatically progressive anemia with overall relatively intact marrow function. Differential does not suggest the evolution of any immature forms. Might want to complete an empiric course of antibiotics but otherwise would continue with observation. CT scan shows some gastric wall thickening which could be a secondary consequence of the recently placed gastrostomy, some long-term SBO/small bowel inflammation changes in a possible inflammatory proctitis though the latter is not associated with specific symptoms there. She has small pleural effusions, ongoing ascites with pneumoperitoneum also possible consequence of the gastrostomy but no traumatic findings to suggest an immediately threatening focal area of infection Plan Other than potentially completing a course of antibiotics empirically, there is no immediately threatening infection apparent. Could consider completing a course of antibiotics but she could easily have a simple leukemoid reaction and for now I think we can simply monitor her CBC She has a pivotal televisit with the [facility] team next Sunday and the specific oncology treatment recommendations that come from that we will importantly color the aggression with which we approach all her other issues particularly those of hyperalimentation and palliative care History of Present Illness Reason for Consultation: Elevated white blood cell count inpatient with peritoneal carcinomatosis related to ovarian cancer Attending Physician: Dg Amaya DO History of Present Illness Muriel has a 2-year history of high-grade intraepithelial carcinoma arising initially as an early stage disease but with subsequent relapse/peritoneal carcinomatosis. She had relapse approximately 1 year ago and has been on successive treatment with carboplatinum/paclitaxel followed by Doxil/Avastin to which was subsequently added carboplatinum. Most recently Avastin has been on hold as a hedge against possible need for surgical intervention in face of recurrent small bowel obstructions and persistent ascites. She was once again admitted with relatively refractory small bowel obstruction and is 1 week status post placement of a venting gastrostomy tube. She has been migrating towards a more conservative overall management plan but awaits a televisit with the [facility] team who have been largely directing her chemotherapy options. That televisit is scheduled for 07/03/2022. She is much more comfortable with a gastrostomy in place than the previous NG tube, continues to have some mild diffuse abdominal discomfort but is not having vomiting or otherwise major new abdominal symptoms. She did appear to have some low-grade temperature but is afebrile now after start of antibiotics. We are specifically asked about the evolving leukocytosis and whether or not that represents infection/sepsis. Allergies Allergy/AdvReac Type Severity Reaction Status Date / Time doxycycline Allergy Intermediate RASH Verified 06/12/22 10:36 gluten AdvReac Intermediate Abdominal Verified 06/12/22 10:36 Pain lactose AdvReac Intermediate Abdominal Verified 06/12/22 10:36 Pain Penicillins AdvReac Intermediate Nausea, Verified 06/12/22 10:36 diarrhea Home Medications Medication Instructions Recorded Confirmed Type montelukast 10 mg tablet 10 mg PO QPM 11/05/19 06/12/22 History sertraline 100 mg tablet 200 mg PO QPM 11/05/19 06/12/22 History dapsone 25 mg tablet 25 mg PO BID 04/13/20 06/12/22 History famotidine 20 mg tablet 20 mg PO QAM 04/13/20 06/12/22 History cholecalciferol (vitamin D3) 50 50 mcg PO QAM 05/11/20 06/12/22 History mcg (2,000 unit) capsule fexofenadine 180 mg tablet 180 mg PO HS 05/11/20 06/12/22 History (Liana Allergy) fluticasone propionate 50 1 spray intranasal BID 05/11/20 06/12/22 History mcg/actuation nasal spray,suspension (Flonase Allergy Relief) topiramate 100 mg tablet (Topamax) 100 mg PO QPM 05/11/20 06/12/22 History beclomethasone dipropionate 40 1 inh inhalation QAM 05/12/20 06/12/22 History mcg/actuation HFA breath activated aerosol (Qvar RediHaler) fremanezumab-vfrm 225 mg/1.5 mL 225 mg subcut MONTHLY 05/12/20 06/12/22 History subcutaneous auto-injector (Ajovy) prochlorperazine maleate 5 mg 5 mg PO BID PRN Nausea 05/12/20 06/12/22 History tablet (Compazine) acetaminophen 325 mg tablet 325 mg PO QID PRN Pain 08/13/20 06/12/22 History (Tylenol) jolheemaxixzt-agaljudhjjegpuwqyr-kazukkfebvfzc 1 cap PO DAILY PRN MIGRAINES 08/13/20 06/12/22 History capsule oxycodone-acetaminophen 5 mg-325 1 tab PO Q4 PRN Pain 03/06/22 06/12/22 History mg tablet polyethylene glycol 3350 17 17 g PO DAILY 03/23/22 06/12/22 History gram/dose oral powder (Miralax) sennosides 8.6 mg capsule (senna) 8.6 mg PO DAILY 03/23/22 06/12/22 History levothyroxine 25 mcg tablet 25 mcg PO DAILY 04/12/22 06/12/22 History nystatin 100,000 unit/gram topical 1 applic topical .COMPLEX #60 grams 05/04/22 06/12/22 Rx powder ondansetron 8 mg disintegrating 8 mg PO Q8H 30 days #90 tabs 05/12/22 06/12/22 Rx tablet lidocaine HCl 2 % mucosal solution 8.75 ml mucous membrane QID throat 06/08/22 06/12/22 Rx (Lidocaine Viscous) pain 14 days #700 mL buspirone 5 mg tablet 5 mg PO BID #60 tabs 06/12/22 06/12/22 Rx lorazepam 0.5 mg tablet 0.5 mg PO BID PRN anxiety #45 tabs 06/12/22 Rx pantoprazole 40 mg tablet,delayed 40 mg PO BID 30 days #60 tabs 06/12/22 06/12/22 Rx release Patient History Medical History (Updated 06/26/22 @ 08:30 by Margareth Parnell MD) Abdominal ascites Abdominal distension Anemia Anxiety and depression Ascites Asthma Asthma LAST USED RESCUE INHALER>BEEN A WHILE Bilateral tinnitus Colostomy present Environmental allergies Failure to thrive GERD (gastroesophageal reflux disease) Gluten intolerance History of anorexia nervosa History of ileus S/P HYSTERECTOMY Hypoglycemia Hypokalemia Hypokalemia Hypothyroidism Itching REASON FOR DAPSONE Large bowel obstruction Leukocytosis Low iron HX IRON INFUSION Migraine Ovarian cancer Ovarian cancer PRESENT DX>REASON FOR A-PORT (HAS RECIEVED 6 CYCLES OF CHEMO 1 YEAR AGO) Ovarian cancer Port-A-Cath in place SBO (small bowel obstruction) SBO (small bowel obstruction) Sinus tachycardia Small bowel obstruction Small bowel obstruction Surgical History (Updated 06/21/22 @ 15:15 by Renee Childers RN) H/O abdominal surgery AT [facility] 07/20/21 TO REMOVE CANCER IN ABDOMEN/COLON RESECTION WITH COLOSTOMY & INTRAPERITONEAL CHEMO H/O total hysterectomy + REMOVAL OVARIAN CYSTECTOMY History of colonoscopy History of esophagogastroduodenoscopy (EGD) History of knee surgery LEFT PATELLA REPAIR Nausea and vomiting after administration of anesthetic agent PEG (percutaneous endoscopic gastrostomy) adjustment/replacement/removal () EGD Gastric Tube Placement - Manpreet Celeste DO Port-A-Cath in place (08/30/21) Insertion Access Port with Fluoroscopy(Right) - Ilan Vee DO 08/30/2021 [place] teeth removed Family History Grandmother (Maternal) Breast cancer Hypertension Grandfather (Maternal) No problems noted. Father Hearing loss Mother Hearing loss Allergies Asthma Sister Allergies Asthma Other No family history of adverse response to anesthesia No family history of bleeding disorder Denies family history of Heart disease Cancer Stroke Social History Smoking Status: Never smoker Second Hand Exposure: No; Hx Alcohol Use: No Hx Substance Use: No Preferred Language: Mongolian Communication Ability: Effective Visual Impairment: Limited Hearing Ability: Normal Life Consultant Required: No Beliefs That Will Affect Care: None marital status: Current Living Situation: Spouse current occupational status: employed and 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 Seatbelt Use: always Sunscreen Use: Yes Do you think of yourself as: straight/heterosexual Assistive Devices: None Physical Exam Physical Exam: Sitting in bed, alert, cachectic, but in no acute distress. Currently afebrile with stable vital signs Lungs seem clear cardiac rhythm is regular without pathological murmur Abdomen shows gastrostomy tube with site looking relatively stable. She also has an ostomy bag in the left lower quadrant which seems to be stable. There is some mild diffuse tenderness but without rigidity or rebound and without clear new mass. Results & Data ([facility]) Vital Signs (Past 12 Hours) Vital Signs Temp Pulse Pulse Resp BP Pulse Ox O2 Del Method 06/27/22 15:31 36.3 C L 95 H 16 116/76 97 Room Air 06/27/22 11:23 36.4 C L 84 18 97/56 L 95 Room Air Laboratory Results Abnormal lab results 06/26/22 06/27/22 06/27/22 Range/Units 23:58 00:16 00:29 WBC (4.8-10.8) K/ul RBC (3.93-5.22) M/uL Hgb (12.0-16.0) g/dl Hct (34.1-44.9) % RDW Std Deviation (36.4-46.3) fL RDW Coeff of Risa (11.5-14.5) % Neut # (Auto) (1.4-6.5) K/uL Lymph # (Auto) (1.2-3.4) K/uL Immature Gran # (Auto) (0.00-0.02) K/uL Sodium (136-145) mmol/L Potassium (3.5-5.1) mmol/L BUN/Creatinine Ratio (10-20) Glucose (70-99(Fasting)) mg/dl POC Glucose 60 L* 56 L* 67 L* (70-99) mg/dl Calcium (8.5-10.1) mg/dl AST (13-39) U/L ALT (7-52) U/L Total Protein (6.0-8.3) gm/dl Albumin (3.4-5.0) gm/dl Globulin (2.5-4.0) gm/dl 06/27/22 06/27/22 06/27/22 Range/Units 00:41 06:01 08:25 WBC (4.8-10.8) K/ul RBC (3.93-5.22) M/uL Hgb (12.0-16.0) g/dl Hct (34.1-44.9) % RDW Std Deviation (36.4-46.3) fL RDW Coeff of Risa (11.5-14.5) % Neut # (Auto) (1.4-6.5) K/uL Lymph # (Auto) (1.2-3.4) K/uL Immature Gran # (Auto) (0.00-0.02) K/uL Sodium (136-145) mmol/L Potassium (3.5-5.1) mmol/L BUN/Creatinine Ratio (10-20) Glucose (70-99(Fasting)) mg/dl POC Glucose 67 L* 56 L* 181 H (70-99) mg/dl Calcium (8.5-10.1) mg/dl AST (13-39) U/L ALT (7-52) U/L Total Protein (6.0-8.3) gm/dl Albumin (3.4-5.0) gm/dl Globulin (2.5-4.0) gm/dl 06/27/22 06/27/22 06/27/22 Range/Units 08:53 08:53 11:20 WBC 17.09 H (4.8-10.8) K/ul RBC 3.08 L (3.93-5.22) M/uL Hgb 9.4 L (12.0-16.0) g/dl Hct 27.7 L (34.1-44.9) % RDW Std Deviation 61.0 H (36.4-46.3) fL RDW Coeff of Risa 18.7 H (11.5-14.5) % Neut # (Auto) 15.56 H (1.4-6.5) K/uL Lymph # (Auto) 0.53 L (1.2-3.4) K/uL Immature Gran # (Auto) 0.14 H (0.00-0.02) K/uL Sodium 134 L (136-145) mmol/L Potassium 3.2 L (3.5-5.1) mmol/L BUN/Creatinine Ratio 21.7 H (10-20) Glucose 153 H (70-99(Fasting)) mg/dl POC Glucose 116 H (70-99) mg/dl Calcium 7.5 L (8.5-10.1) mg/dl AST 11 L (13-39) U/L ALT 6 L (7-52) U/L Total Protein 4.8 L (6.0-8.3) gm/dl Albumin 2.6 L (3.4-5.0) gm/dl Globulin 2.2 L (2.5-4.0) gm/dl Diagnostic Findings Abdomen/Pelvis CT 06/18/22 06:[address] WITH IV CONTRAST CT DOSE: 249.32 mGy.cm HISTORY: Acute generalized abdominal pain with possible small bowel obstruction . Prior partial small bowel resection with left lower quadrant colostomy colostomy, abd pain, SBO? TECHNIQUE: Multiaxial CT images of the abdomen and pelvis were performed fo llowing the IV administration of 80 cc of Optiray, A dose lowering technique was utilized adhering to the principles of ALARA. COMPARISON STUDY: CT abdomen and pelvis 06/03/2022 FINDINGS: Trace pleural effusions. Clear lung bases. No pneumatosis or pneumoperitoneum identified. Spleen measures 13.9 cm in length. Unremarkable pancreas and adrenal glands. Distended gallbladder. Unchanged appearance of the liver. Patency of the hepatic and portal veins. Mild bilateral pelvocaliectasis without luz elena hydronephrosis. Symmetric enhancement of the kidneys. Mild nonspecific urinary bladder wall thickening with partial distention. Ascites with peritoneal carcinomatosis redemonstrated. Stable 8 mm nodule within the left hemipelvis on image 294. Peritoneal thickening and enhancement. Small hiatal hernia. Decreased distention of the distal esophagus compared to the prior study. Distention of the stomach, proximal to mid small bowel is redemonstrated and appears similar to the prior exam. Prior partial bowel resection with left lower quadrant colostomy. Unremarkable soft tissues. No acute fracture. IMPRESSION: 1. Prior partial bowel resection with left lower quadrant colostomy. 2. Distention of the stomach, proximal to mid small bowel appears stable compared to the 06/03/2022 exam. Findings are suspicious for a partial small bowel obstruction. 3. Ascites with peritoneal thickening and peritoneal carcinomatosis redemonstrated. 4. Splenomegaly. 5. Additional findings as above. ACT 112: Negative or not required by law. The above report was generated using voice recognition software. It may contain grammatical, syntax or spelling errors. Electronically signed by: Harley Calero M.D. 06/18/2022 9:11 AM Chest X-Ray 06/18/22 10:15 XR chest 1V portable HISTORY: 57 years-old Female NGT placement status post placement of an enteric tube COMPARISON: CT abdomen and pelvis day, chest radiograph 05/13/2022 TECHNIQUE: AP view of the chest FINDINGS: Cardiomediastinal and hilar silhouettes are within normal limits. No pneumothorax, pleural effusion, airspace consolidation or overt pulmonary edema. Right IJ Augxqf-z-Fmly catheter distal tip is noted in the expected location of the mid SVC. Enteric tube distal tip courses into the stomach with distal tip outside the ekevb-by-sdzo. The side-port is present in the gastric cardia. Distended air-filled stomach. Contrast opacified left renal collecting system. Bones appear grossly intact. IMPRESSION: 1. No acute processes of the chest. 2. Status post placement of an enteric tube with distal tip outside the ugzxx-bx-nrnq and side port within the gastric cardia. 3. Distended air-filled stomach. ACT 112: Negative or not required by law. The above report was generated using voice recognition software. It may contain grammatical, syntax or spelling errors. Electronically signed by: Harley Calero M.D. 06/18/2022 10:33 AM Paracentesis Ultrasound 06/19/22 09:00 PARACENTESIS UNDER ULTRASOUND GUIDANCE CLINICAL HISTORY: Abdominal ascites COMPARISON STUDY: Abdominal CT dated 06/18/2022. PROCEDURE: The risks, benefits, and alternatives to the procedure were discussed with the patient who voiced understanding. Written informed consent was obtained. Following real-time ultrasound localization of a suitable pocket of fluid in the left lower quadrant, the abdomen was prepped and draped in the usual sterile fashion. The skin and soft tissues were anesthetized with 1% lidocaine. The sheathed paracentesis needle was inserted and approximately 1 liter of straw-colored ascitic fluid was removed by vacuum suction. The procedure was well tolerated and without immediate complication. The patient left the department in satisfactory condition. IMPRESSION: Successful ultrasound-guided paracentesis with removal of approximately 1 liter of ascitic fluid. ACT 112: Negative or not required by law. Electronically signed by: Jonathan Leo M.D. 06/19/2022 10:39 AM KUB X-Ray 06/20/22 07:00 KUB CLINICAL HISTORY: Small bowel obstruction. FINDINGS: An AP, portable, supine abdominal radiograph is compared to study dated 06/05/2022 and correlated with abdominal CT dated 06/18/2022. An enteric tube projects below the diaphragm over the stomach. There is mild gaseous dist ention of the small bowel loops comment appears improved as compared to the recent CT scan. No evidence of intraperitoneal free air seen on this supine image. Suture material and surgical clips are noted in the pelvis. There are numerous pelvic phleboliths. The skeletal structures are osteopenic and appear intact. IMPRESSION: 1. An enteric tube is in place. 2. There is mild persistent gaseous distention of the small bowel loops. This appears improved as compared to the 06/18/2022 examination and likely represents resolving bowel obstruction. Clinical correlation will be required. Electronically signed by: Jonathan Leo M.D. 06/20/2022 10:39 AM Abdomen/Pelvis CT 06/25/22 16:[address] WITH IV CONTRAST CT DOSE: 254.92 mGy.cm HISTORY: fever, abd pain, recent G tube TECHNIQUE: Multiaxial CT images of the abdomen and pelvis were performed following the use of intravenous contrast. A dose lowering technique was utilized adhering to the principles of ALARA. COMPARISON STUDY: Abdomen and pelvis CT 06/18/2022. FINDINGS: Interval development of small bilateral pleural effusions with bibasilar linear densities consistent with subsegmental atelectasis. Small amount of pneumoperitoneum is new from the prior study. This is primarily anterior to the stomach and is likely due to the recent percutaneous gastrostomy tube placement. The gastrostomy tube appears in good position. No pneumatosis. No fractures within the visualized osseous structures. Focal thickening within the anterior abdominal wall at the gastrostomy tube entry site. This favors the recent postoperative change. There is moderate body wall edema which is new from the prior study. There is also edema within the abdominal wall musculature and bilateral iliopsoas muscles. There is also presacral edema noted. Moderate gastric wall thickening. This is slightly progressed. Small to moderate amount of loculated fluid has slightly improved within the abdomen and pelvis including a right hepatic lobe subcapsular cystic lesion and a small cystic lesion at the vaginal cuff. There is associated mild thickening of the peritoneal lining. This remains unchanged and favors the patient's known peritoneal carcinomatosis. Secondary infection would be difficult to exclude but considered less likely given the lack of significant change. Stable peritoneal soft tissue deposits within the left deep pelvis on image 290. The bladder is unremarkable. Partial bowel resection with a left lower quadrant colostomy again noted. Multiple mildly dilated, fluid-filled, and thickened loops of large and small bowel are seen throughout the abdomen. Interval improvement in the gastric distention. This is similar to the prior study. The main portal vein is patent. The gallbl adder, common adrenal glands, and pancreas unremarkable. The spleen remains mildly enlarged. Mild left hydronephrosis persists. Normal right kidney. There is a left retroaortic renal vein. No retroperitoneal lymphadenopathy. Mild thickening of the rectal stump. This has slightly progressed. IMPRESSION: 1. Interval development of small bilateral pleural effusions and moderate body wall edema. 2. Multiple mildly dilated, fluid-filled, and thickened loops of large and small bowel seen throughout the abdomen. This is similar to the prior study. This raises the possibility of partial small bowel obstruction. 3. Small amount of pneumoperitoneum. This is likely due to the recent placement of the gastrostomy tube. A bowel perforation is considered less likely but would also be considered in the differential diagnosis. 4. Mild left hydronephrosis, unchanged. This is likely due to the left lower quadrant peritoneal carcinomatosis. 5. Slight improvement in the small amount of ascites seen throughout the abdomen and pelvis with mild enhancement/thickening of the peritoneal lining. This likely corresponds to the patient's known peritoneal carcinomatosis. Secondary infection would be difficult to exclude but considered less likely given the lack of interval change. 6. Moderate gastric wall thickening which has progressed. This could represent a gastritis or secondary to the recent postoperative change. 17. Moderate rectal wall thickening has also progressed suggestive of a nonspecific proctitis. ACT 112: Negative or not required by law. Electronically signed by: William Jaimes M.D. 06/25/2022 6:57 PM Chest X-Ray 06/25/22 16:20 XR chest 1V portable HISTORY: sepsis COMPARISON: KUB 06/20/2022. Chest 06/18/2022. FINDINGS: No pneumothorax. No pleural effusions. The heart is normal in size. Right jugular Port-A-Cath terminates at the SVC. The lungs are clear. Suggestion of a feeding tube within the right midabdomen. This is only partially visualized on this study. Possible left-sided pneumoperitoneum. IMPRESSION: 1. No acute process within the chest. 2. Possible left-sided pneumoperitoneum. There appears to be a right mid a bdominal feeding tube. Therefore, this could be due to recent postoperative change. This will be better assessed on the same day abdomen and pelvis CT. ACT 112: Negative or not required by law. Electronically signed by: William Jaimes M.D. 06/25/2022 5:26 PM Abdomen/Pelvis CT 06/26/22 11:32 CT OF THE ABDOMEN AND PELVIS WITH CONTRAST CLINICAL HISTORY: Abdominal pain. Recent G-tube placement. Ovarian cancer. Evaluate for bowel perforation. COMPARISON STUDY: CT of the abdomen and pelvis June 25, 2022. TECHNIQUE: Following IV administration of 88 mL of Optiray, axial images of the abdomen and pelvis were obtained from the lung bases to the proximal femurs. Images were reviewed in the axial, sagittal, and coronal planes. IV contrast was administered without complication. Automated exposure control was utilized for the study. A dose lowering technique was utilized adhering to the principles of ALARA. Oral contrast was administered. CT DOSE: 262.61 mGycm FINDINGS: Small to moderate bilateral pleural effusions are partially imaged. Subpleural opacities favor atelectasis. Interlobular septal thickening represents mild interstitial pulmonary edema. A small amount of pneumoperitoneum has decreased since CT of June 25, 2022. Gastrostomy tube is in place. Small amount of ascites with peritoneal thickening and enhancement is similar to prior exam. Splenomegaly is unchanged. A cystic lesion along the right hepatic lobe is unchanged. There is no biliary or pancreatic ductal dilatation. No right hydronephrosis is present. Mild to moderate left hydroureteronephrosis is similar to prior exam. The left ureter is dilated to the level of the pelvis. Rectal wall thickening is again noted with perirectal stranding and fluid is unchanged. There is no adjacent extraluminal gas. Hyperdense material within the rectal stump is again noted. Oral contrast reaches the terminal ileum. Terminal ileum is relatively decompressed. Left lower quadrant descending colostomy is present. The proximal duodenum is moderately distended. There is decreased aortomesenteric distance. However, contrast passed beyond this point. Multiple loops of mildly dilated small bowel are noted. This is similar to prior exam. There is no evidence for a high-grade bowel obstruction. Anasarca is present. Major vasculature is patent. IMPRESSION: 1. Small amount of pneumoperitoneum, decreased since CT of June 25, 2022. Therefore, this is likely related to gastrostomy tube placement. 2. No significant change in mild small bowel dilatation since prior exam. However, contrast reaches the terminal ileum. The findings may reflect a partial small bowel obstruction or ileus. 3. No change in a small amount of ascites with peritoneal thickening and enhancement. This enhancement is likely related to known peritoneal carcinomatosis. Secondary infection would be difficult to exclude but is considered less likely. 4. No change in mild to moderate left hydronephrosis. This is likely due to left lower quadrant peritoneal carcinomatosis. 5. Small to moderate bilateral pleural effusions. Mild interstitial pulmonary edema. Anasarca. 6. No change in rectal wall thickening with adjacent stranding and fluid which may reflect a nonspecific proctitis. ACT 112: Negative or not required by law. Electronically signed by: Jose Gottlieb M.D. 06/26/2022 2:42 PM KUB X-Ray 06/27/22 08:32 KUB CLINICAL HISTORY: Small bowel obstruction. COMPARISON STUDY: CT of the abdomen and pelvis June 26, 2022. FINDINGS: Gastrostomy tube is incidentally noted. Persistent opacification of the left collecting system and ureter is noted with hydroureteronephrosis. This was shown on prior CT. There is contrast within the bladder. Oral contrast has reached the colon. Persistent mild small bowel dilatation is noted. Small bowel loops measure up to 3.4 cm in caliber. IMPRESSION: 1. Persistent mild small bowel dilatation. This may reflect a partial small bowel obstruction or ileus. However, oral contrast has reached the colon. 2. Redemonstration of left hydroureteronephrosis. ACT 112: Negative or not required by law. Electronically signed by: Jose Gottlieb M.D. 06/27/2022 9:58 AM PG Care Time/CCT Total # of Minutes Spent Total Time Spent with Patient: Total time spent is greater than 50% in coordination of care (as documented) at patient's floor/unit and/or counseling patient: Coding Level of Care Code 32807 Inpt Consult Level 3 History Expanded Problem Focused Exam Problem Focused Medical Decision Making Moderate Complexity Diagnoses Ovarian cancer C56.9 Leukocytosis D72.829
[2022-06-27] MEDS: ondansetron HCL 8 MG in DEXTROSE 5% 50 ML IV PRN (21:41)
[2022-06-27] MEDS ORDERED: STOP CLINOLIPID SCH (22:00)
[2022-06-28] MEDS: CEFEPIME 2,000 MG in SYRINGE 0 ML IV SCH ×3 (00:28→16:17)
[2022-06-28] MEDS: metroNIDAZOLE 500 MG/100 ML BAG IV SCH ×3 (00:28→17:14)
[2022-06-28] MEDS: HYDROmorphone INJ 1 MG/ML SYRINGE IV PRN ×5 (01:34→21:10)
[2022-06-28] MEDS: VANCOMYCIN HCL 750 MG in SODIUM CHLORIDE 0.9% 250 ML IV SCH ×2 (01:49→13:31)
[2022-06-28] MEDS: LORazepam 0.5 MG in SYRINGE 0 ML IV PRN ×2 (03:12→22:31)
[2022-06-28] MEDS: ACETAMINOPHEN 1,000 MG/100 ML VIAL IV SCH ×3 (03:30→20:43)
[2022-06-28] MEDS: ondansetron HCL 8 MG in DEXTROSE 5% 50 ML IV PRN ×2 (03:51→18:34)
[2022-06-28] MEDS: LEVOTHYROXINE SODIUM 25 MCG TABLET PO SCH (05:49)
[2022-06-28 07:21] LABS: BUN Creatinine Ratio 19.4 (10-20); Creatinine Clr Calc Pharmacy 68.1 ml/min; Est GFR (African American) 114.7 ml/min; Magnesium 2.1 mg/dl (1.7-2.4); Phosphorus 3.6 mg/dl (2.5-4.9); Potassium 5.1 mmol/L (3.5-5.1)
--- NOTE | 2022-06-28 08:44 | Surgery Progress Note ---
Date of Service June 28, 2022 Assessment & Plan (1) Partial obstruction of small intestine: Plan: Difficult scenario. X-rays did reveal contrast getting to the colon so she does not have a complete obstruction. Again I do not believe she is an operative candidate. I believe we would likely do more harm than good. Continue current care with no plans for additional surgical intervention. (2) Severe protein-calorie malnutrition: (3) Colostomy present: (4) Ovarian cancer: Admission and Anticipated Discharge Date Admission Date: June 18, 2022 Subjective Patient seen. She was having some nausea yesterday but this is improved currently this morning. She is tolerating clear liquids although her gastrostomy tube is hooked up to suction. She is not getting much out of her stoma. She currently appears comfortable and is not complaining of pain. Physical Exam Physical Exam: alert. nad abd: soft. PEG in place. functioning. stoma with scant output. Results & Data ([facility]) Vital Signs (Past 12 Hours) Vital Signs Temp Pulse Pulse Pulse Resp BP Pulse Ox 06/28/22 06:59 36.5 C 97 H 14 119/76 94 06/27/22 22:22 99 H 06/28/22 03:25 36.5 C 115 H 18 124/78 95 06/27/22 23:33 37.4 C 103 H 18 111/71 94 O2 Del Method 06/28/22 06:59 Room Air 06/27/22 22:22 06/28/22 03:25 Room Air 06/27/22 23:33 Room Air PG Care Time/CCT Total # of Minutes Spent Total Time Spent with Patient: Total time spent is greater than 50% in coordination of care (as documented) at patient's floor/unit and/or counseling patient: Coding Level of Care Code 60747 Subseq Hosp Care Lvl 3 Diagnoses Partial obstruction of small intestine K56.600 Severe protein-calorie malnutrition E43 Colostomy present Z93.3 Ovarian cancer C56.9
[2022-06-28 08:56] LABS: Hematocrit (blood only) 31.8 % (34.1-44.9); Hemoglobin 10.7 g/dl (12.0-16.0); Mean Corpuscular Hemoglobin 30.6 pg (25.0-34.0); Mean Corpuscular Hgb Conc 33.6 g/dL (32.0-36.0); Mean Corpuscular Volume 90.9 fL (80.0-100.0); Mean Platelet Volume 10.8 fL (9.4-12.3); Platelet Count 233 K/uL (130-400); RDW Coefficient of Variation 17.6 % (11.5-14.5); RDW Standard Deviation 57.9 fL (36.4-46.3)
[2022-06-28] MEDS: FLUTICASONE FUROATE 100MCG 14 PUFFS/INHALER INH SCH (09:12)
[2022-06-28] MEDS: HEPARIN SOD 5,000 UNIT/0.5 ML VIAL SQ SCH ×2 (09:14→20:44)
[2022-06-28] MEDS: PANTOprazole 40 MG in SYRINGE 0 ML IV SCH ×2 (09:17→20:43)
[2022-06-28] MEDS: SERTRALINE HCL 100 MG TABLET PO SCH (09:20)
[2022-06-28] MEDS: NYSTATIN/TRIAMCIN OINT 15 GM TUBE EXT SCH ×2 (09:20→20:44)
[2022-06-28] MEDS ORDERED: PROCHLORPERAZINE 5 MG in SYRINGE 4 ML IV PRN (09:22)
[2022-06-28 09:23] LABS: BUN Creatinine Ratio 21.1 (10-20); Calcium 8.4 mg/dl (8.5-10.1); Creatinine Clr Calc Pharmacy 64.3 ml/min; Est GFR (African American) 111.1 ml/min; Est GFR (Non-African American) 95.9 ml/min; Potassium 3.8 mmol/L (3.5-5.1)
[2022-06-28 09:47] LABS: Basophils # (auto) 0.06 K/uL (0-0.2); Basophils % (auto) 0.3 %; Echinocytes 1+; Eosinophils # (auto) 0.04 K/uL (0-0.50); Eosinophils % (auto) 0.2 %; Immature Granulocytes # (auto) 0.49 K/uL (0.00-0.02); Immature Granulocytes % (auto) 2.2 %; Lymphocytes # (auto) 0.71 K/uL (1.2-3.4); Lymphocytes % (auto) 3.1 %; Monocytes # (auto) 0.85 K/uL (0.24-0.82); Monocytes % (auto) 3.8 %; Neutrophils # (auto) 20.45 K/uL (1.4-6.5); Neutrophils % (auto) 90.4 %; Polychromasia 1+
[2022-06-28] MEDS: PROMETHAZINE HCL 6.25 MG in SODIUM CHLORIDE 0.9% 50 ML IV PRN (10:00)
--- NOTE | 2022-06-28 10:14 | Hospitalist Progress Note ---
Date of Service June 28, 2022 Assessment & Plan (1) SBO (small bowel obstruction): Plan: 57-year-old female past medical history metastatic ovarian cancer with peritoneal carcinomatosis and ascites, recurrent SBO, GERD, asthma, anxiety/depression admitted for recurrent SBO. Partial SBO: improving - Multifactorial. W/ ascites now s/p therapeutic paracentesis, hx multiple abdominal surgeries, adhesions, and intra-abdominal malignancy. - Bowel perforation workup pending (CT A/P, IV contrast) - Presented with abdominal pain and nausea, with CTAP showing partial small bowel obstruction. - S/p EGD with PEG tube placement 06/[address] Celeste. - No evidence of perforation or pneumoperitonitis on latest imaging. -Partial resolution of obstruction on 06/27. * Tolerating clear liquid diet * Pain control: IV Dilaudid prn q4h, scheduled IV Tylenol. Holding Toradol. Anemia: stable, improving - Chronic, present on admission. With past gastric occult test positive. Hemoglobin decreased to 6.9 after receiving IV fluids on 06/18. Hemoglobin 6.3, down from 8.6. Now status post transfusion of 2 units packed red blood cells. Trend CBC Hematology consult placed today to evaluate concern for terminal deterioration secondary to cancer. Appreciate recs. Ovarian cancer High-grade ovarian carcinoma diagnosed 03/2020; has received combination of chemotherapy and initial surgery which was performed at [facility] [place]. Has Neulasta Onpro device. Avastin last given ~6 weeks ago. Baseline hemoglobin fluctuates from 7.510.0 in the setting of chemotherapy and malignancy, with associated thrombocytopenia to 28 on admission. Last completed chemo carbop/doxil ~20 days ago, suspect thrombocytopenia is 2/2 chemo toxic effect. - Therapeutic paracentesis q4-6 weeks, performed 06/19 with output of about 1 L. - Dr. Naylor oncology aware of patient's admission, will follow peripherally with follow up after discharge unless oncologic needs arise while inpatient. Consult placed to Dr. Burch (see above). Protein calorie malnutrition - History of weight loss (weighed 110 lbs prior to cancer diagnosis), hypoglycemia, several admissions for small bowel obstruction during which she was n.p.o. and required parenteral nutrition. - Continue parenteral nutrition with assistance by pharmacy/dietitian for caloric needs, until adequate oral intake. - Replete electrolytes as necessary. Hypothyroidism -Continue home levothyroxine Anxiety/depression Continue sertraline. Continue Ativan 0.5 mg PO twice daily as needed. DVT prophylaxis: Stopped SQ heparin CODE STATUS: Full code Disposition: Med/Surg Diet: CLD (2) Anemia: (3) Ovarian cancer: (4) Severe protein-calorie malnutrition: (5) Hypokalemia: (6) Hypothyroidism: (7) Colostomy present: (8) GERD (gastroesophageal reflux disease): (9) Hyponatremia: (10) Ascites: (11) Diffuse abdominal pain: (12) Anxiety and depression: (13) Thrombocytopenia: Admission and Anticipated Discharge Date Admission Date: June 18, 2022 Supervising Physician Co-Signing Physician Notes I personally examined the patient and verified all francis points of history and exam, discussed case, and agree with decision making with Dr Haynes Ongoing lower abdominal pain and pulling, as well as feeling full/swollen especially whenever she is sitting up. Ongoing nausea, but not quite as severe as before. Still eating but having it sucked back out via her G-tube. vitals noted nad heent nc at mmm breathing unlabored no accessory muscle use good effort. Abdomen is soft mildly firm but no guarding rebound or rigidity. Skin shows no rashes no pallor or icterus. anemia, presumed sepsis - repeat CT surprisingly reassurring. Etiology not entirely clear. Situation has stabilized posttransfusion and with initiation of broad antibiotics. Either sepsis of uncertain source or concern on decompensation related to cancerand given that there is no clear source after 48 hours, more suspicious it is cancer related inflammation. That said, not confident enough in lack of a had an infection to DC empiric antibiotics for nowcontinue, serial exams, serial history. Doubt chemo/Neulasta related given that its been about 4 weeks. otherwise as above Subjective No acute events overnight. Patient reports slightly improved abdominal pain. Patient is tolerating clear liquid diet well, although it continues to drain into PEG tube. She has not had any bowel movements or emptied into her colostomy bag. Review of Systems Review of Systems: All systems reviewed & are unremarkable except as noted in HPI & below Physical Exam Physical Exam: General: Alert, interactive, and oriented woman in no acute distress. HEENT:. Moist mucosal membranes. Neck: Supple. No lymphadenopathy. Normal ROM. CV: Regular rate and rhythm. Normal S1 and S2. No murmurs gallops or rubs. Respiratory: Normal respiratory effort. Lungs clear to auscultation bilaterally. No crackles, rhonchi, or wheezes. Abdomen: Soft, nondistended abdomen. Mild tenderness to deep palpation. Extremities: Capillary refill <2 sec. 2+ dp equal bilaterally. No pedal edema. Neuro: Alert and oriented x4. Skin: Clean, dry, and intact. No rashes, bruises, or erythema. Results & Data Results & Data ([facility]) Vital Signs (Past 12 Hours) Vital Signs Temp Pulse Pulse Pulse Resp BP Pulse Ox 06/28/22 06:59 36.5 C 97 H 14 119/76 94 06/27/22 22:22 99 H 06/28/22 03:25 36.5 C 115 H 18 124/78 95 06/27/22 23:33 37.4 C 103 H 18 111/71 94 O2 Del Method 06/28/22 06:59 Room Air 06/27/22 22:22 06/28/22 03:25 Room Air 06/27/22 23:33 Room Air Resident Activity Tracking Resident Involvement: Resident Care Provided Care Provided: Adult Hospital Medicine
[2022-06-28 10:22] LABS: Magnesium 1.9 mg/dl (1.7-2.4)
[2022-06-28 10:34] LABS: C Reactive Protein 42.28 mg/dl (0-0.5)
[2022-06-28] MEDS ORDERED: [UNRECOGNIZED DRUG - OTHER] IV SCH (16:00)
[2022-06-28] MEDS ORDERED: AMINO ACID 8% IV SCH (16:00)
[2022-06-28] MEDS ORDERED: CENTRAL TPN IV SCH (16:00)
[2022-06-28] MEDS ORDERED: FAT EMULSION IV SCH (16:00)
[2022-06-28] MEDS ORDERED: CLINOLIPID 20% IV SCH (16:00)
[2022-06-28] MEDS: METHYLNALTREXONE BROMIDE 12 MG/0.6 ML VIAL SQ SCH (16:16)
--- NOTE | 2022-06-28 17:48 | Billing Data ---
Date of Service June 28, 2022 Coding Level of Care Code 67352 Subseq Hosp Care Lvl 3
[2022-06-28] MEDS: STOP CLINOLIPID SCH (22:18)
[2022-06-29] MEDS: metroNIDAZOLE 500 MG/100 ML BAG IV SCH ×3 (01:28→16:39)
[2022-06-29] MEDS: CEFEPIME 2,000 MG in SYRINGE 0 ML IV SCH ×3 (01:28→16:40)
[2022-06-29] MEDS: HYDROmorphone INJ 1 MG/ML SYRINGE IV PRN ×4 (01:28→14:05)
[2022-06-29] MEDS: ondansetron HCL 8 MG in DEXTROSE 5% 50 ML IV PRN ×4 (01:32→21:58)
[2022-06-29] MEDS: VANCOMYCIN HCL 750 MG in SODIUM CHLORIDE 0.9% 250 ML IV SCH ×2 (03:01→14:05)
[2022-06-29] MEDS: ACETAMINOPHEN 1,000 MG/100 ML VIAL IV SCH (04:25)
[2022-06-29] MEDS: LEVOTHYROXINE SODIUM 25 MCG TABLET PO SCH (05:55)
--- NOTE | 2022-06-29 07:29 | Surgery Progress Note ---
Date of Service June 29, 2022 Assessment & Plan (1) Partial obstruction of small intestine: Plan: Contrast in the colon. Again she is not likely a surgical candidate. Discomfort likely multifactorial including the cancer itself, immobility, constipation etc. Question if the Duragesic patch may stabilize some of her discomfort better than IV Dilaudid? Otherwise not much to offer surgically. We will continue to follow peripherally while she is in the hospital. (2) Severe protein-calorie malnutrition: (3) Ovarian cancer: Admission and Anticipated Discharge Date Admission Date: June 18, 2022 Subjective Patient seen. No major changes. She has having little more discomfort overall. She has some lower pelvic cramping which she states is similar to menstrual cramps. She also having some pain down her back in front of her legs. She is requiring Dilaudid routinely. She is drinking some clear liquids but the majority of this is being removed via her gastrostomy tube. Physical Exam Physical Exam: Alert. Fatigued. Cachectic. Abdomen is soft. Mild lower pelvic tenderness. No evidence of peritonitis. G- tube in place without leakage. Yeast infection around it dramatically improved. Results & Data ([facility]) Vital Signs (Past 12 Hours) Vital Signs Temp Pulse Pulse Pulse Resp BP Pulse Ox 06/29/22 03:26 36.7 C 88 18 125/80 94 06/28/22 20:00 06/29/22 00:00 85 06/28/22 23:08 36.8 C 82 18 119/73 94 06/28/22 19:40 36.3 C L 92 H 18 125/78 98 O2 Del Method 06/29/22 03:26 Room Air 06/28/22 20:00 Room Air 06/29/22 00:00 06/28/22 23:08 Room Air 06/28/22 19:40 Room Air PG Care Time/CCT Total # of Minutes Spent Total Time Spent with Patient: Total time spent is greater than 50% in coordination of care (as documented) at patient's floor/unit and/or counseling patient: Coding Level of Care Code 38835 Subseq Hosp Care Lvl 3 Diagnoses Partial obstruction of small intestine K56.600 Severe protein-calorie malnutrition E43 Ovarian cancer C56.9
[2022-06-29 08:02] LABS: BUN Creatinine Ratio 28.4 (10-20); Calcium 8.3 mg/dl (8.5-10.1); Creatinine Clr Calc Pharmacy 68.1 ml/min; Est GFR (African American) 114.7 ml/min; Magnesium 1.7 mg/dl (1.7-2.4); Phosphorus 3.1 mg/dl (2.5-4.9); Potassium 3.7 mmol/L (3.5-5.1)
--- NOTE | 2022-06-29 08:42 | Hospitalist Progress Note ---
Date of Service June 29, 2022 Assessment & Plan (1) SBO (small bowel obstruction): Plan: 57-year-old female past medical history metastatic ovarian cancer with peritoneal carcinomatosis and ascites, recurrent SBO, GERD, asthma, anxiety/depression admitted for recurrent SBO. Partial SBO: improving - Multifactorial. W/ ascites now s/p therapeutic paracentesis, hx multiple abdominal surgeries, adhesions, and intra-abdominal malignancy. - Bowel perforation workup pending (CT A/P, IV contrast) - Presented with abdominal pain and nausea, with CTAP showing partial small bowel obstruction. - S/p EGD with PEG tube placement 06/[address] Celeste. - No evidence of perforation or pneumoperitonitis on latest imaging. -Partial resolution of obstruction on 06/27. Given negative intra-abdominal work-ups of her, suspect obstruction due to chronic malignancy. * Tolerating clear liquid diet * Pain control: IV Dilaudid prn q4h, Dilaudid PLUMBING MANAGER ordered. Anemia: stable, improving - Chronic, present on admission. With past gastric occult test positive. Hemoglobin decreased to 6.9 after receiving IV fluids on 06/18. Hemoglobin 6.3, down from 8.6. Now status post transfusion of 2 units packed red blood cells. Trend CBC Hematology consult placed today to evaluate concern for terminal deterioration secondary to cancer. Appreciate recs. Ovarian cancer High-grade ovarian carcinoma diagnosed 03/2020; has received combination of chemotherapy and initial surgery which was performed at [facility] [place]. Has Neulasta Onpro device. Avastin last given ~6 weeks ago. Baseline hemoglobin fluctuates from 7.510.0 in the setting of chemotherapy and malignancy, with associated thrombocytopenia to 28 on admission. Last completed chemo carbop/doxil ~20 days ago, suspect thrombocytopenia is 2/2 chemo toxic effect. - Therapeutic paracentesis q4-6 weeks, performed 06/19 with output of about 1 L. - Dr. Naylor oncology aware of patient's admission, will follow peripherally with follow up after discharge unless oncologic needs arise while inpatient. Consult placed to Dr. Burch (see above). Protein calorie malnutrition - History of weight loss (weighed 110 lbs prior to cancer diagnosis), hypoglycemia, several admissions for small bowel obstruction during which she was n.p.o. and required parenteral nutrition. - Continue parenteral nutrition with assistance by pharmacy/dietitian for caloric needs, until adequate oral intake. - Replete electrolytes as necessary. Hypothyroidism -Continue home levothyroxine Anxiety/depression Continue sertraline. Continue Ativan 0.5 mg PO twice daily as needed. DVT prophylaxis: Stopped SQ heparin CODE STATUS: Full code Disposition: Med/Surg Diet: CLD (2) Anemia: (3) Ovarian cancer: (4) Severe protein-calorie malnutrition: (5) Hypokalemia: (6) Hypothyroidism: (7) Colostomy present: (8) GERD (gastroesophageal reflux disease): (9) Hyponatremia: (10) Ascites: (11) Diffuse abdominal pain: (12) Anxiety and depression: (13) Thrombocytopenia: Admission and Anticipated Discharge Date Admission Date: June 18, 2022 Supervising Physician Co-Signing Physician Notes I personally examined the patient and verified all francis points of history and exam, discussed case, and agree with decision making with Dr Haynes Abdominal pain worse. Feeling more reflux. Having some leaking around her PEG tube site. Lower abdominal pressure. Some degree of pelvic and leg swelling. vitals noted nad heent nc at mmm breathing unlabored no accessory muscle use good effort. Abdomen is abdomen is a little bit more firm than before, no guarding rebound or rigidity but is diffusely tender. A little bit of thin green drainage around her PEG tube site. anemia, presumed sepsis - repeat CT surprisingly reassurring. Etiology not entirely clear. Situation has stabilized posttransfusion and with initiation of broad antibiotics. Either sepsis of uncertain source or concern on decompensation related to cancerand given that there is no clear source after 48 hours, more suspicious it is cancer related inflammation. That said, not confident enough in lack of a had an infection to DC empiric antibiotics for nowcontinue, serial exams, serial history. Doubt chemo/Neulasta related given that its been about 4 weeks. As it relates to her small bowel obstruction and cancerI am growing increasingly concerned that she is crossing into a terminal event. Is now been days with no stool output, her abdomen is getting more firmand she is showing signs of diminished venous return/increased intra- abdominal pressure such as the worsening swelling, worsening reflux, and leaking around her PEG tube site. We discussed this frankly. We discussed any role of repeat imaging, and that I felt like it would probably not be very helpful medically, but would be willing to order if it helped her with closureshe noted that she did not really feel like she needed that at this time. Discussed pain controlshe notes (as did I) that we were trying to dance a fine line between pain control and trying to not slow motility, but she notes she would much prefer better pain control even if she sacrifices any chance of motility at this point. We discussed that she may be reaching a point of considering more of a hospice/palliative mode of care, and that I felt like it would probably be beneficial for her to keep her telehealth appointment with MD Duncan Sunday for closure, but that I would expect after that that she may choose to move more swiftly into a hospice direction. Updated PCP as well. Start Dilaudid PCA1 mg now, 0.25 every 15 minutes as needed, titrate if needed. mom present at the bedside as well. otherwise as above Subjective No acute events overnight. This morning, patient reports increased abdominal pain and nausea. She also reports sensation of abdominal distention and bilateral thigh swelling. Review of Systems Review of Systems: All systems reviewed & are unremarkable except as noted in HPI & below Physical Exam Physical Exam: General: Alert, interactive, and oriented woman in no acute distress. HEENT:. Moist mucosal membranes. Neck: Supple. No lymphadenopathy. Normal ROM. CV: Regular rate and rhythm. Normal S1 and S2. No murmurs gallops or rubs. Respiratory: Normal respiratory effort. Lungs clear to auscultation bilaterally. No crackles, rhonchi, or wheezes. Abdomen: Soft, nondistended abdomen. Ostomy empty. Moderate tenderness to to palpation in upper abdominal quadrants, R >L. Some guarding noted. No rebound Extremities: Capillary refill <2 sec. 2+ dp equal bilaterally. No pedal edema. Neuro: Alert and oriented x4. Skin: Clean, dry, and intact. No rashes, bruises, or erythema. Results & Data Results & Data ([facility]) Vital Signs (Past 12 Hours) Vital Signs Temp Pulse Pulse Resp BP Pulse Ox O2 Del Method 06/29/22 03:26 36.7 C 88 18 125/80 94 Room Air 06/29/22 00:00 85 06/28/22 23:08 36.8 C 82 18 119/73 94 Room Air Resident Activity Tracking Resident Involvement: Resident Care Provided Care Provided: Adult [facility] Medicine
[2022-06-29 08:51] LABS: Basophils # (auto) 0.04 K/uL (0-0.2); Basophils % (auto) 0.2 %; Eosinophils # (auto) 0.03 K/uL (0-0.50); Eosinophils % (auto) 0.2 %; Hematocrit (blood only) 31.2 % (34.1-44.9); Hemoglobin 10.4 g/dl (12.0-16.0); Immature Granulocytes # (auto) 0.14 K/uL (0.00-0.02); Immature Granulocytes % (auto) 0.9 %; Lymphocytes # (auto) 0.65 K/uL (1.2-3.4); Mean Corpuscular Hemoglobin 30.1 pg (25.0-34.0); Mean Corpuscular Hgb Conc 33.3 g/dL (32.0-36.0); Mean Corpuscular Volume 90.2 fL (80.0-100.0); Mean Platelet Volume 11.2 fL (9.4-12.3); Monocytes # (auto) 0.77 K/uL (0.24-0.82); Monocytes % (auto) 4.8 %; Neutrophils # (auto) 14.44 K/uL (1.4-6.5); Neutrophils % (auto) 89.9 %; Platelet Count 216 K/uL (130-400); RDW Coefficient of Variation 18.1 % (11.5-14.5); RDW Standard Deviation 59.4 fL (36.4-46.3); Red Blood Count 3.46 M/uL (3.93-5.22); White Blood Count 16.07 K/ul (4.8-10.8)
[2022-06-29] MEDS: HEPARIN SOD 5,000 UNIT/0.5 ML VIAL SQ SCH ×2 (08:54→20:51)
[2022-06-29] MEDS: FLUTICASONE FUROATE 100MCG 14 PUFFS/INHALER INH SCH (08:54)
[2022-06-29] MEDS: NYSTATIN/TRIAMCIN OINT 15 GM TUBE EXT SCH ×2 (08:55→20:52)
[2022-06-29] MEDS: PANTOprazole 40 MG in SYRINGE 0 ML IV SCH ×2 (08:55→20:51)
[2022-06-29] MEDS: SERTRALINE HCL 100 MG TABLET PO SCH (08:56)
--- NOTE | 2022-06-29 10:23 | Pharmacy Report ---
PHA: Parenteral Nutrition Con - Date of Service June 29, 2022 - Scope Pharmacy was consulted on 06/27 to manage parenteral nutrition orders for this patient. (TPN previously discontinued 06/24) - Subjective The patient is currently on day 3 of central parenteral nutrition due to poor PO intake - Objective Height: 5 ft 4 in Weight: 45.5 kg Diet: NPO Intake & Output (24hrs):: Intake & Output 06/27/22 06/28/22 06/29/22 06/30/22 06:59 06:59 06:59 06:59 Intake Total 6101.75 / 6101.75 2769.917 / 2769.917 4132.983 / 4132.983 100 / 100 Output Total 800 / 800 1200 / 1200 3800 / 3800 Balance 5301.75 / 5301.75 1569.917 / 1569.917 332.983 / 332.983 100 / 100 Weight 44.2 kg 45.5 kg Laboratory Data (Last 24 Hr):: 06/28/22 06/28/22 06/29/22 08:13 08:13 07:23 Sodium 137 Potassium 3.7 Chloride 110 H Carbon Dioxide 21 BUN 19 Creatinine 0.67 Glucose 107 H Calcium 8.3 L Phosphorus 3.0 3.1 Magnesium 1.9 1.7 Triglycerides 88 Nutrition Assessment:: Please refer to the Notes section of the EMR for the most recent appliance installer note. - Plan 06/29/22: * TPN had previously been discontinued 06/24, then restarted again 06/27 due to continued poor PO intake * Per notes, patient drinking some clears. Appears some nausea, have been getting different antiemetics * Continue TPN today, currently at goal with Kcal. Chloride elevated, will decrease in TPN today, Mg trending down therefore will increase in TPN today * Plan to continue with daily lipids for now, TG and LFTs 06/27 and 06/28 within range 06/22/22: * POD #1 s/p G-tube placement for gastric decompression * Patient remains NPO with plan to continue current TPN formulation w/ lipids MWF (no lipids today) * Labs largely stable, hypomagnesemia noted today (1.6 mg/dL) - 2 g IV magnesium sulfate ordered for repletion this morning 06/19/22: * Patient with very low body weight. Dietitian recommendations from yesterday reviewed. Discussed with Jorje Michael today and revised slightly - plan is to start using *peripheral* Clinimix form (due to lower dextrose content and risk of refeeding), administer it via a central line, start at 1680 mL of Clinimix (70 mL/hr) and only give lipids every other day (due to low body weight). Risk of refeeding may be high, but given stable electrolytes from yesterday to today despite a dextrose infusion that will have contributed 144 g of CHO over 24 hours, this is not deemed highly likely. May switch to central Clinimix formulation soon, depending on tolerability and electrolyte trends. - Plan Macronutrients Amino acids 67 grams/day Dextrose 118 grams/day Lipids 45 grams daily Micronutrients Sodium phosphate 12 MMol Sodium acetate 130 mEq Potassium chloride 50 mEq Potassium acetate 10 mEq Magnesium sulfate 16.24 mEq Calcium gluconate 9.3 mEq Multivitamins 10 mL Trace Elements 1 mL Additional additives: thiamine 100 mg, folic acid 1 mg Total volume 975 mL to be infused over 24 hrs will provide 1118 kcal/day Pharmacy will continue to follow and adjust parenteral nutrition orders on a daily basis. Thank you for allowing us to participate in the care of this patient.
[2022-06-29] MEDS ORDERED: VANCOMYCIN LEVEL ONE (13:30)
--- NOTE | 2022-06-29 14:55 | Pharmacy Report ---
Pharmacy Vanc AUC Short Note - Date of Service June 29, 2022 - Assessment & Plan Assessment 57 year old F receiving IV vancomycin empirically due to leukocytosis and immunosuppression from chemotherapy. Pertinent microbiologic data includes: * Blood and urine cultures show no growth to date * Day # 5 of antimicrobial therapy. Patient is also receiving cefepime IV 2g q8h and metronidazole IV 500 mg q8h Plan Vancomycin * Measured trough is 14.9 mcg/mL today * Continue dose of 750 mg IV q12h * AUC guided dosing is effective and associated with decreased risk of nephrotoxicity compared to traditional trough targets * The measured trough is predicted to achieve target AUC/ROBERTO of 493 mg/L.hr and may be associated with a 10 % risk of nephrotoxicity * Trough/random level is not ordered * Provider to clarify if vancomycin is to continue beyond the empiric 48 hour duration Pharmacy will continue to follow and will adjust dose/frequency as necessary. Thank you.
[2022-06-29] MEDS ORDERED: KETOROLAC TROMETHAMINE 15 MG/ML VIAL IV ONE (15:06)
[2022-06-29] MEDS ORDERED: NALOXONE HCL 0.4 MG/1 ML VIAL/CARP IV PRN ×2 (15:08→16:44)
[2022-06-29] MEDS ORDERED: CLINOLIPID 20% IV SCH (16:00)
[2022-06-29] MEDS ORDERED: FAT EMULSION IV SCH (16:00)
[2022-06-29] MEDS ORDERED: CENTRAL TPN IV SCH (16:00)
[2022-06-29] MEDS ORDERED: [UNRECOGNIZED DRUG - OTHER] IV SCH (16:00)
[2022-06-29] MEDS ORDERED: AMINO ACID 8% IV SCH (16:00)
[2022-06-29] MEDS: SUCRALFATE 1 GM/10 ML UDC PO SCH ×2 (16:39→20:52)
[2022-06-29] MEDS ORDERED: HYDROmorphone Bolus from PCA IV STA (16:44)
--- NOTE | 2022-06-29 16:51 | Billing Data ---
Date of Service June 29, 2022 Coding Level of Care Code 68797 Subseq Hosp Care Lvl 3
[2022-06-29] MEDS: SODIUM CHLORIDE 0.9% 1000ML 1,000 ML IV SCH ×2 (17:53→17:54)
[2022-06-29] MEDS: HYDROmorphone PCA 30 MG/30 ML IV PRN ×2 (18:49→19:18)
[2022-06-29] MEDS: FAMOTIDINE 20 MG in SYRINGE 3 ML IV SCH (21:01)
[2022-06-29] MEDS: LORazepam 0.5 MG in SYRINGE 0 ML IV PRN (21:57)
[2022-06-29] MEDS: STOP CLINOLIPID SCH (21:57)
[2022-06-30] MEDS: metroNIDAZOLE 500 MG/100 ML BAG IV SCH ×3 (01:13→17:11)
[2022-06-30] MEDS: KETOROLAC TROMETHAMINE 15 MG/ML VIAL IV PRN (01:18)
[2022-06-30] MEDS: CEFEPIME 2,000 MG in SYRINGE 0 ML IV SCH ×3 (01:18→16:49)
[2022-06-30] MEDS: VANCOMYCIN HCL 750 MG in SODIUM CHLORIDE 0.9% 250 ML IV SCH ×2 (02:25→16:30)
[2022-06-30] MEDS: LEVOTHYROXINE SODIUM 25 MCG TABLET PO SCH (05:42)
[2022-06-30] MEDS: PROMETHAZINE HCL 6.25 MG in SODIUM CHLORIDE 0.9% 50 ML IV PRN ×3 (05:42→23:34)
[2022-06-30] MEDS: HYDROmorphone PCA 30 MG/30 ML IV PRN (07:12)
[2022-06-30 07:59] LABS: BUN Creatinine Ratio 38.7 (10-20); Calcium 8.4 mg/dl (8.5-10.1); Creatinine Clr Calc Pharmacy 73.5 ml/min; Est GFR (African American) 117.7 ml/min; Est GFR (Non-African American) 101.5 ml/min; Phosphorus 3.7 mg/dl (2.5-4.9); Potassium 3.6 mmol/L (3.5-5.1)
[2022-06-30 08:48] LABS: Magnesium 1.8 mg/dl (1.7-2.4)
--- NOTE | 2022-06-30 08:58 | Surgery Progress Note ---
Date of Service June 30, 2022 Assessment & Plan (1) Partial obstruction of small intestine: Plan: I tightened the gastrostomy tube again today. I will also have nursing put it to low continuous suction which may help some of the leakage issue. Dr. Araya is production tool engineer for the weekend if any problems or questions. Admission and Anticipated Discharge Date Admission Date: June 18, 2022 Subjective Patient seen. No major changes. Some increased nausea over the last 2 days. She is getting a small amount of leakage around her gastrostomy tube. No new pain. Physical Exam Physical Exam: Alert. No acute distress Abdomen soft. Stoma with minimal output. Gastrostomy tube with small amount of bilious leakage Results & Data ([facility]) Vital Signs (Past 12 Hours) Vital Signs Temp Pulse Pulse Resp BP Pulse Ox O2 Del Method 06/30/22 07:56 36.4 C L 79 18 122/76 96 Room Air 06/30/22 03:09 36.3 C L 90 18 137/79 94 Room Air 06/30/22 00:00 80 06/29/22 23:09 36.4 C L 88 18 120/72 96 Room Air PG Care Time/CCT Total # of Minutes Spent Total Time Spent with Patient: Total time spent is greater than 50% in coordination of care (as documented) at patient's floor/unit and/or counseling patient: Coding Level of Care Code 77723 Subseq Hosp Care Lvl 2 Diagnoses Partial obstruction of small intestine K56.600
[2022-06-30] MEDS: SERTRALINE HCL 100 MG TABLET PO SCH (09:20)
[2022-06-30] MEDS: SUCRALFATE 1 GM/10 ML UDC PO SCH ×4 (09:20→20:29)
[2022-06-30] MEDS: PANTOprazole 40 MG in SYRINGE 0 ML IV SCH ×2 (09:20→20:28)
[2022-06-30] MEDS: NYSTATIN/TRIAMCIN OINT 15 GM TUBE EXT SCH ×2 (09:21→20:29)
[2022-06-30] MEDS: HEPARIN SOD 5,000 UNIT/0.5 ML VIAL SQ SCH ×2 (09:21→20:29)
[2022-06-30] MEDS: FLUTICASONE FUROATE 100MCG 14 PUFFS/INHALER INH SCH (09:24)
--- NOTE | 2022-06-30 09:37 | Pharmacy Report ---
Pharmacy Vanc AUC Short Note - Date of Service June 30, 2022 - Assessment & Plan Assessment 57 year old F receiving IV vancomycin empirically due to leukocytosis and immunosuppression from chemotherapy. Pertinent microbiologic data includes: * Blood and urine cultures show no growth to date Day # 6 of antimicrobial therapy. Patient is also receiving cefepime IV 2g q8h and metronidazole IV 500 mg q8h Plan Vancomycin * Predicted trough at steady state is 13.4 * Provider extended duration of therapy for an additional 3 days. * Continue dose of 750 mg IV q12h * AUC guided dosing is effective and associated with decreased risk of nephrotoxicity compared to traditional trough targets * The trough at steady state is predicted to achieve target AUC/ROBERTO of 461 mg/L.hr and may be associated with a 9 % risk of nephrotoxicity * No further levels are scheduled at this time. Will obtain level if renal function status changes drastically. Presently, the SCr has remained relatively stable. Pharmacy will continue to follow and will adjust dose/frequency as necessary. Thank you.
[2022-06-30] MEDS: FAMOTIDINE 20 MG in SYRINGE 3 ML IV SCH ×2 (09:48→20:33)
[2022-06-30] MEDS: ondansetron HCL 8 MG in DEXTROSE 5% 50 ML IV SCH ×3 (10:30→20:52)
--- NOTE | 2022-06-30 11:41 | Hospitalist Progress Note ---
Date of Service June 30, 2022 Assessment & Plan (1) SBO (small bowel obstruction): Plan: 57-year-old female past medical history metastatic ovarian cancer with peritoneal carcinomatosis and ascites, recurrent SBO, GERD, asthma, anxiety/depression admitted for recurrent SBO. Partial SBO: improving - Multifactorial. W/ ascites now s/p therapeutic paracentesis, hx multiple abdominal surgeries, adhesions, and intra-abdominal malignancy. - Bowel perforation workup pending (CT A/P, IV contrast) - Presented with abdominal pain and nausea, with CTAP showing partial small bowel obstruction. - S/p EGD with PEG tube placement 06/[address] Celeste. - No evidence of perforation or pneumoperitonitis on latest imaging. Suspect SBO secondary to intra-abdominal tumors. -Partial resolution of obstruction on 06/27. Given negative intra-abdominal work-ups of her, suspect obstruction due to chronic malignancy. * Tolerating clear liquid diet * Pain control: IV Dilaudid prn q4h, Dilaudid CLAIM REVIEW MEDICAL DIRECTOR ordered. * IV Zofran now scheduled. As needed Phenergan. Carafate also ordered. Biotene mouth spray ordered. Anemia: stable, improving - Chronic, present on admission. With past gastric occult test positive. Hemoglobin decreased to 6.9 after receiving IV fluids on 06/18. Hemoglobin 6.3, down from 8.6. Now status post transfusion of 2 units packed red blood cells. Trend CBC Hematology consult to evaluate concern for terminal deterioration secondary to cancer. Appreciate recs. Ovarian cancer High-grade ovarian carcinoma diagnosed 03/2020; has received combination of chemotherapy and initial surgery which was performed at [facility] [place]. Has Neulasta Onpro device. Avastin last given ~6 weeks ago. Baseline hemoglobin fluctuates from 7.510.0 in the setting of chemotherapy and malignancy, with associated thrombocytopenia to 28 on admission. Last completed chemo carbop/doxil ~20 days ago, suspect thrombocytopenia is 2/2 chemo toxic effect. - Therapeutic paracentesis q4-6 weeks, performed 06/19 with output of about 1 L. - Dr. Naylor oncology aware of patient's admission, will follow peripherally with follow up after discharge unless oncologic needs arise while inpatient. Consult placed to Dr. Burch (see above). -Patient scheduled for telehealth visit appointment with MD Duncan. After this appointment, she will decide on whether she wants to initiate hospice care. Protein calorie malnutrition - History of weight loss (weighed 110 lbs prior to cancer diagnosis), hypoglycemia, several admissions for small bowel obstruction during which she wa s n.p.o. and required parenteral nutrition. - Continue parenteral nutrition with assistance by pharmacy/dietitian for caloric needs, until adequate oral intake. - Replete electrolytes as necessary. Hypothyroidism -Continue home levothyroxine Anxiety/depression Continue sertraline. Continue Ativan 0.5 mg PO twice daily as needed. DVT prophylaxis: Stopped SQ heparin CODE STATUS: Full code Disposition: Med/Surg Diet: CLD (2) Anemia: (3) Ovarian cancer: (4) Severe protein-calorie malnutrition: (5) Hypokalemia: (6) Hypothyroidism: (7) Colostomy present: (8) GERD (gastroesophageal reflux disease): (9) Hyponatremia: (10) Ascites: (11) Diffuse abdominal pain: (12) Anxiety and depression: (13) Thrombocytopenia: Admission and Anticipated Discharge Date Admission Date: June 18, 2022 Supervising Physician Co-Signing Physician Notes I personally examined the patient and verified all francis points of history and exam, discussed case, and agree with decision making with Dr Haynes Pain was worse earlier in the day. Started utilizing CLAIM REVIEW MEDICAL DIRECTOR more often pain is now under better controlbut does note that she pretty much needs to collected every 15 minutes. Extensive discussion with patient, , sistershe is aware that she is likely nearing the end of her life, does definitely want to hear from MD Duncan, but she and her then start asked very good, directed, detailed questions about the possibility for home with hospice assuming that she has no further treatment options. vitals noted nad heent nc at mmm breathing unlabored no accessory muscle use good effort. Abdomen is abdomen is again firm, no guarding rebound or rigidity but is diffusely tender. A little bit of thin green drainage around her PEG tube site. anemia, presumed sepsis - repeat CT surprisingly reassurring. Etiology not entirely clear. Situation has stabilized posttransfusion and with initiation of broad antibiotics. Either sepsis of uncertain source or concern on decompensation related to cancerand given that there is no clear source after 48 hours, more suspicious it is cancer related inflammation. That said, not confident enough in lack of a had an infection to DC empiric antibiotics for nowcontinue and follow. Doubt chemo/Neulasta related given that its been about 4 weeks. As it relates to her small bowel obstruction and cancerI am fairly convinced that she is crossing into a terminal event. Is now been days with no stool output, her abdomen is getting more firmand she is showing signs of diminished venous return/increased intra-abdominal pressure such as the worsening swelling, worsening reflux, and leaking around her PEG tube site. We discussed this frankly again today, and she does seem to be showing much more acceptance than before. I was able to update and sister at the bedside extensively today, and answered all questions the best my ability. I still feel like it would probably be beneficial for her to keep her telehealth appointment with MD Duncan Sunday for closure, but that I would expect after that that she may choose to move more swiftly into a hospice direction. Updated PCP as well again, he also stop by to see her personally. Continue PCAif she is truly still needing it every 15 minutes like clockwork to keep up with pain, then I would definitely increase the dose. Also to hopefully have her be able to get some sleep without falling behind in pain control, I added a 1 mg at bedtime scheduled dose. As far as pain control if she does go home on hospice, given that her GI tract will be unreliable at bestwould consider fentanyl patch and sublingual Roxanol (given the potential for erratic absorption with fentanyl patch given her paucity of body fatwould want to follow her for at least a day or so in the hospital before sending home to ensure she is getting adequate pain control), or alternately could search for a hospice agency that can use a CLAIM REVIEW MEDICAL DIRECTOR at home otherwise as above Subjective No acute events overnight. Overnight nursing communication note detailed multiple requests for IV Toradol, as needed antiemetics. This morning, patient reports improved pain control, though reports some heartburn, upper abdominal pain aggravated by movement. She reports 5-6 episodes of nausea without vomiting. Review of Systems Review of Systems: All systems reviewed & are unremarkable except as noted in HPI & below Physical Exam Physical Exam: General: No acute distress HEENT: PERRLA. Normal conjunctiva, anicteric sclera. Oropharynx normal. Respiratory: Normal respiratory effort, CTA BL. Cardiovascular: RRR without murmurs, gallops, or rubs. No edema. GI: Soft abdomen with normal bowel sounds heard on auscultation. Nontender x4 quadrants Neuro: Alert and oriented x3. Results & Data Results & Data ([facility]) Vital Signs (Past 12 Hours) Vital Signs Temp Pulse Pulse Resp BP Pulse Ox O2 Del Method 06/30/22 11:24 36.6 C 91 H 16 148/85 H 97 Room Air 06/30/22 07:56 36.4 C L 79 18 122/76 96 Room Air 06/30/22 03:09 36.3 C L 90 18 137/79 94 Room Air 06/30/22 00:00 80 Resident Activity Tracking Resident Involvement: Resident Care Provided Care Provided: Adult Hospital Medicine
[2022-06-30] MEDS ORDERED: CENTRAL TPN IV SCH (16:00)
[2022-06-30] MEDS ORDERED: [UNRECOGNIZED DRUG - OTHER] IV SCH (16:00)
[2022-06-30] MEDS ORDERED: CLINOLIPID 20% IV SCH (16:00)
[2022-06-30] MEDS ORDERED: AMINO ACID 8% IV SCH (16:00)
[2022-06-30] MEDS ORDERED: FAT EMULSION IV SCH (16:00)
[2022-06-30] MEDS: SODIUM CHLORIDE 0.9% 1000ML 1,000 ML IV SCH ×2 (16:24→17:07)
[2022-06-30] MEDS: METHYLNALTREXONE BROMIDE 12 MG/0.6 ML VIAL SQ SCH (17:10)
[2022-06-30] MEDS ORDERED: LORazepam 0.5 MG in SYRINGE 0 ML IV STA (18:15)
--- NOTE | 2022-06-30 19:05 | Billing Data ---
Date of Service June 30, 2022 Coding Level of Care Code 66602 Subseq Hosp Care Lvl 3
[2022-06-30] MEDS: HYDROmorphone INJ 1 MG/ML SYRINGE IV SCH (20:34)
[2022-06-30] MEDS: STOP CLINOLIPID SCH (23:12)
[2022-07-01] MEDS: VANCOMYCIN HCL 750 MG in SODIUM CHLORIDE 0.9% 250 ML IV SCH ×2 (01:48→14:34)
[2022-07-01] MEDS: LORazepam 0.5 MG in SYRINGE 0 ML IV PRN ×2 (02:45→22:32)
[2022-07-01] MEDS: ondansetron HCL 8 MG in DEXTROSE 5% 50 ML IV SCH ×4 (03:43→22:31)
[2022-07-01] MEDS: LEVOTHYROXINE SODIUM 25 MCG TABLET PO SCH (06:05)
--- NOTE | 2022-07-01 06:57 | Hospitalist Progress Note ---
Date of Service July 01, 2022 Assessment & Plan (1) SBO (small bowel obstruction): Plan: 57-year-old female past medical history metastatic ovarian cancer with peritoneal carcinomatosis and ascites, recurrent SBO, GERD, asthma, anxiety/depression admitted for recurrent SBO. Partial SBO: improving - Multifactorial. W/ ascites now s/p therapeutic paracentesis, hx multiple abdominal surgeries, adhesions, and intra-abdominal malignancy. - Bowel perforation workup pending (CT A/P, IV contrast) - Presented with abdominal pain and nausea, with CTAP showing partial small bowel obstruction. - S/p EGD with PEG tube placement 06/[address] Celeste. - No evidence of perforation or pneumoperitonitis on latest imaging. Suspect SBO secondary to intra-abdominal tumors. -Partial resolution of obstruction on 06/27. Given negative intra-abdominal work-ups of her, suspect obstruction due to chronic malignancy. * Continue with clear liquid diet * Pain control: Now on Dilaudid HAWK MISSILE SYSTEM CREWMEMBER (increased to 0.5 mg Dilaudid per push every 15 minutes), IV Dilaudid 1 mg nightly. Reassess and adjust as needed. * Continue with scheduled IV Zofran. As needed Phenergan, Carafate. * IV Pepcid, IV Protonix for heartburn Leukocytosis: Improving -WBC 4.96 initially on admission. WBC progressively decreased to the level of 2.65, that appeared to stabilize briefly x3 days, before increasing to 16.07 from 9.97 on 06/26/2022, reaching peak of 22.6 on 06/28/2022. -Leukocytosis steadily resolving since. -Due to concern for intra-abdominal infectious process 2/2 SBO, patient was started on Flagyl, IV vancomycin, cefepime on 06/25. -Leukocytosis currently downtrending, resolved at present. Suspect intra- abdominal process. Plan to manage as intra-abdominal process of unknown origin x10 days. May d/c antibiotic therapy earlier if procalcitonin<1.0 * Continue Flagyl, vancomycin, cefepime * Trend CBC * A.m. procalcitonin Anemia: stable - Chronic, present on admission. With past gastric occult test positive. Hemoglobin decreased to 6.9 after receiving IV fluids on 06/18. Hemoglobin 6.3, down from 8.6. Now status post transfusion of 2 units packed red blood cells. * Trend CBC * Hematology consult to evaluate concern for terminal deterioration secondary to cancer. Appreciate recs. Ovarian cancer High-grade ovarian carcinoma diagnosed 03/2020; has received combination of chemotherapy and initial surgery which was performed at [facility] [place]. Has Neulasta Onpro device. Avastin last given ~6 weeks ago. Baseline hemoglobin fluctuates from 7.510.0 in the setting of chemotherapy and malignancy, with associated thrombocytopenia to 28 on admission. Last completed chemo carbop/doxil ~20 days ago, suspect thrombocytopenia is 2/2 chemo toxic effect. - Therapeutic paracentesis q4-6 weeks, performed 06/19 with output of about 1 L. - Dr. Naylor oncology aware of patient's admission, will follow peripherally with follow up after discharge unless oncologic needs arise while inpatient. Consult placed to Dr. Burch (see above). -Patient scheduled for telehealth visit appointment with MD Duncan. After this appointment, she will decide on whether she wants to initiate hospice care. Protein calorie malnutrition - History of weight loss (weighed 110 lbs prior to cancer diagnosis), hypoglycemia, several admissions for small bowel obstruction during which she was n.p.o. and required parenteral nutrition. * Continue parenteral nutrition with assistance by pharmacy/dietitian for caloric needs, until adequate oral intake. * Replete electrolytes as necessary. Hypothyroidism * Continue home levothyroxine Anxiety/depression * Continue sertraline. * Continue Ativan 0.5 mg PO twice daily as needed. DVT prophylaxis: Lovenox 40 mg daily CODE STATUS: Full code Disposition: Med/Surg Diet: CLD (2) Anemia: (3) Ovarian cancer: (4) Severe protein-calorie malnutrition: (5) Hypokalemia: (6) Hypothyroidism: (7) Colostomy present: (8) GERD (gastroesophageal reflux disease): (9) Hyponatremia: (10) Ascites: (11) Diffuse abdominal pain: (12) Anxiety and depression: (13) Thrombocytopenia: Admission and Anticipated Discharge Date Admission Date: June 18, 2022 Supervising Physician Co-Signing Physician Notes The patient was seen and examined by me. Case discussed with resident physician. Agree with assessment and plan. Lungs reveal scattered bilateral rhonchi. No wheezing. Heart rate is regular. Abdomen is slightly distended with functioning PEG tube in place. Subjective No acute events overnight. This morning, she does report that her pain is not well controlled on the HAWK MISSILE SYSTEM CREWMEMBER (patient apparently 0.25 mg Dilaudid pushes every 15 minutes; x6 administrations since yesterday). Her nausea and heartburn have improved since switching the PEG tube to continuous suction. She reports her mouth remains dry despite oral hydration, Biotene etc. She has no other acute concerns at this time. Review of Systems Review of Systems: All systems reviewed & are unremarkable except as noted in HPI & below Physical Exam Physical Exam: General: No acute distress HEENT: PERRLA. Normal conjunctiva, anicteric sclera. Oropharynx normal. Respiratory: Normal respiratory effort, CTA BL. Cardiovascular: RRR without murmurs, gallops, or rubs. No edema. GI: Soft abdomen with normal bowel sounds heard on auscultation. Nontender x4 quadrants Neuro: Alert and oriented x3. Results & Data Results & Data ([facility]) Vital Signs (Past 12 Hours) Vital Signs Temp Pulse Pulse Pulse Resp BP Pulse Ox 07/01/22 04:25 36.8 C 102 H 16 123/80 95 06/30/22 21:59 94 H 06/30/22 20:15 06/30/22 23:05 37.2 C 101 H 18 145/87 H 93 06/30/22 19:22 36.5 C 97 H 18 145/90 H 97 O2 Del Method 07/01/22 04:25 Room Air 06/30/22 21:59 06/30/22 20:15 Room Air 06/30/22 23:05 Room Air 06/30/22 19:22 Room Air Resident Activity Tracking Resident Involvement: Resident Care Provided Care Provided: Adult Hospital Medicine
[2022-07-01] MEDS: PANTOprazole 40 MG in SYRINGE 0 ML IV SCH ×2 (08:05→20:13)
[2022-07-01] MEDS: SUCRALFATE 1 GM/10 ML UDC PO SCH ×4 (08:05→20:13)
[2022-07-01] MEDS: SERTRALINE HCL 100 MG TABLET PO SCH (08:06)
[2022-07-01] MEDS: HEPARIN SOD 5,000 UNIT/0.5 ML VIAL SQ SCH ×2 (08:06→20:13)
[2022-07-01] MEDS: FLUTICASONE FUROATE 100MCG 14 PUFFS/INHALER INH SCH (08:06)
[2022-07-01] MEDS: NYSTATIN/TRIAMCIN OINT 15 GM TUBE EXT SCH ×2 (08:06→20:14)
[2022-07-01] MEDS: FAMOTIDINE 20 MG in SYRINGE 3 ML IV SCH ×2 (08:09→20:12)
[2022-07-01 08:30] LABS: Basophils # (auto) 0.05 K/uL (0-0.2); Basophils % (auto) 0.5 %; Eosinophils # (auto) 0.07 K/uL (0-0.50); Eosinophils % (auto) 0.7 %; Hematocrit (blood only) 29.5 % (34.1-44.9); Hemoglobin 9.6 g/dl (12.0-16.0); Immature Granulocytes # (auto) 0.09 K/uL (0.00-0.02); Immature Granulocytes % (auto) 0.9 %; Lymphocytes # (auto) 0.63 K/uL (1.2-3.4); Lymphocytes % (auto) 6.6 %; Mean Corpuscular Hgb Conc 32.5 g/dL (32.0-36.0); Mean Corpuscular Volume 92.2 fL (80.0-100.0); Monocytes # (auto) 0.77 K/uL (0.24-0.82); Neutrophils # (auto) 7.96 K/uL (1.4-6.5); Neutrophils % (auto) 83.3 %; Platelet Count 180 K/uL (130-400); RDW Coefficient of Variation 17.7 % (11.5-14.5); RDW Standard Deviation 59.1 fL (36.4-46.3); White Blood Count 9.57 K/ul (4.8-10.8)
[2022-07-01] MEDS: PROMETHAZINE HCL 6.25 MG in SODIUM CHLORIDE 0.9% 50 ML IV PRN (08:33)
[2022-07-01 08:48] LABS: BUN Creatinine Ratio 48.9 (10-20); Calcium 8.3 mg/dl (8.5-10.1); Creatinine Clr Calc Pharmacy 96.9 ml/min; Est GFR (African American) 128.9 ml/min; Est GFR (Non-African American) 111.2 ml/min; Magnesium 1.7 mg/dl (1.7-2.4); Phosphorus 3.5 mg/dl (2.5-4.9); Potassium 3.5 mmol/L (3.5-5.1)
[2022-07-01] MEDS: HYDROmorphone PCA 30 MG/30 ML IV PRN ×2 (11:02→22:33)
[2022-07-01] MEDS: metroNIDAZOLE 500 MG/100 ML BAG IV SCH ×2 (11:37→18:04)
[2022-07-01] MEDS: CEFEPIME 2,000 MG in SYRINGE 0 ML IV SCH ×2 (14:30→22:31)
[2022-07-01] MEDS: SODIUM CHLORIDE 0.9% 1000ML 1,000 ML IV SCH ×2 (14:35→16:34)
[2022-07-01] MEDS ORDERED: CENTRAL TPN IV SCH (16:00)
[2022-07-01] MEDS ORDERED: [UNRECOGNIZED DRUG - OTHER] IV SCH (16:00)
[2022-07-01] MEDS ORDERED: CLINOLIPID 20% IV SCH (16:00)
[2022-07-01] MEDS ORDERED: FAT EMULSION IV SCH (16:00)
[2022-07-01] MEDS ORDERED: AMINO ACID 8% IV SCH (16:00)
[2022-07-01] MEDS: HYDROmorphone INJ 1 MG/ML SYRINGE IV SCH (20:26)
[2022-07-01] MEDS: STOP CLINOLIPID SCH (23:05)
[2022-07-02] MEDS: VANCOMYCIN HCL 750 MG in SODIUM CHLORIDE 0.9% 250 ML IV SCH ×2 (02:24→14:31)
[2022-07-02] MEDS: ondansetron HCL 8 MG in DEXTROSE 5% 50 ML IV SCH ×4 (03:50→21:34)
[2022-07-02] MEDS: SODIUM CHLORIDE 0.9% 1000ML 1,000 ML IV SCH (03:50)
[2022-07-02] MEDS: metroNIDAZOLE 500 MG/100 ML BAG IV SCH ×3 (03:56→21:25)
[2022-07-02] MEDS: PROMETHAZINE HCL 6.25 MG in SODIUM CHLORIDE 0.9% 50 ML IV PRN (04:23)
[2022-07-02] MEDS: LEVOTHYROXINE SODIUM 25 MCG TABLET PO SCH (06:11)
[2022-07-02] MEDS: CEFEPIME 2,000 MG in SYRINGE 0 ML IV SCH ×3 (06:11→21:30)
[2022-07-02] MEDS ORDERED: ENOXAPARIN INJ 40 MG/0.4 ML SYR SQ SCH (09:00)
[2022-07-02] MEDS: SERTRALINE HCL 100 MG TABLET PO SCH (09:08)
[2022-07-02] MEDS: PANTOprazole 40 MG in SYRINGE 0 ML IV SCH ×2 (09:08→21:26)
[2022-07-02] MEDS: HEPARIN SOD 5,000 UNIT/0.5 ML VIAL SQ SCH ×2 (09:09→21:26)
[2022-07-02] MEDS: SUCRALFATE 1 GM/10 ML UDC PO SCH ×4 (09:09→21:25)
[2022-07-02] MEDS: NYSTATIN/TRIAMCIN OINT 15 GM TUBE EXT SCH ×2 (09:09→21:25)
[2022-07-02] MEDS: FLUTICASONE FUROATE 100MCG 14 PUFFS/INHALER INH SCH (09:10)
[2022-07-02] MEDS: FAMOTIDINE 20 MG in SYRINGE 3 ML IV SCH ×2 (09:19→21:25)
[2022-07-02 09:34] LABS: Basophils # (auto) 0.03 K/uL (0-0.2); Basophils % (auto) 0.3 %; Eosinophils # (auto) 0.04 K/uL (0-0.50); Eosinophils % (auto) 0.5 %; Hematocrit (blood only) 29.1 % (34.1-44.9); Hemoglobin 9.3 g/dl (12.0-16.0); Immature Granulocytes # (auto) 0.07 K/uL (0.00-0.02); Immature Granulocytes % (auto) 0.8 %; Lymphocytes % (auto) 6.9 %; Mean Corpuscular Hemoglobin 29.6 pg (25.0-34.0); Mean Corpuscular Volume 92.7 fL (80.0-100.0); Mean Platelet Volume 10.9 fL (9.4-12.3); Monocytes # (auto) 0.77 K/uL (0.24-0.82); Monocytes % (auto) 8.9 %; Neutrophils # (auto) 7.19 K/uL (1.4-6.5); Neutrophils % (auto) 82.6 %; Platelet Count 164 K/uL (130-400); RDW Coefficient of Variation 17.7 % (11.5-14.5); RDW Standard Deviation 59.7 fL (36.4-46.3); Red Blood Count 3.14 M/uL (3.93-5.22)
[2022-07-02 09:42] LABS: BUN Creatinine Ratio 52.5 (10-20); Calcium 8.2 mg/dl (8.5-10.1); Creatinine Clr Calc Pharmacy 128.4 ml/min; Est GFR (African American) 135.9 ml/min; Est GFR (Non-African American) 117.3 ml/min; Potassium 4.1 mmol/L (3.5-5.1)
[2022-07-02] MEDS ORDERED: PROMETHAZINE HCL 12.5 MG in SODIUM CHLORIDE 0.9% 50 ML IV STA (13:45)
--- NOTE | 2022-07-02 14:05 | Hospitalist Progress Note ---
Date of Service July 02, 2022 Assessment & Plan (1) SBO (small bowel obstruction): Plan: 57-year-old female past medical history metastatic ovarian cancer with peritoneal carcinomatosis and ascites, recurrent SBO, GERD, asthma, anxiety/depression admitted for recurrent SBO. Partial SBO: - Multifactorial. W/ ascites now s/p therapeutic paracentesis, hx multiple abdominal surgeries, adhesions, and intra-abdominal malignancy. - Bowel perforation workup pending (CT A/P, IV contrast) - Presented with abdominal pain and nausea, with CTAP showing partial small bowel obstruction. - S/p EGD with PEG tube placement 06/[address] Celeste. - No evidence of perforation or pneumoperitonitis on latest imaging. Suspect SBO secondary to intra-abdominal tumors. -Partial resolution of obstruction on 06/27. Given negative intra-abdominal work -ups of her, suspect obstruction due to chronic malignancy. -Started CLINICAL NURSE EDUCATOR with IV Dilaudid. Converted to continuous Dilaudid drip after 24 hours. Patient used 13.5 mg via CLINICAL NURSE EDUCATOR, +1 mg nightly. -Patient complaining of abdominal fullness x2 days. Patient has history of regular paracentesis procedures q. monthly. * Continue with clear liquid diet, parenteral nutrition * Converting CLINICAL NURSE EDUCATOR to continuous hydromorphone drip. Starting at 0.5 mg infusion, titrate up to 0.9 mg/h. Evaluate and titrate as needed. * Continue with scheduled IV Zofran. As needed Phenergan, Carafate. One-time dose of 12 mg IV Phenergan administered today. Will evaluate nausea with patient tomorrow. * IV Pepcid, IV Protonix for heartburn * Abdominal ultrasound r/o ascites. Leukocytosis: Improving -WBC 4.96 initially on admission. WBC progressively decreased to the level of 2.65, that appeared to stabilize briefly x3 days, before increasing to 16.07 from 9.97 on 06/26/2022, reaching peak of 22.6 on 06/28/2022. -Leukocytosis steadily downtrending since. Now resolved x2 days. -Due to concern for intra-abdominal infectious process 2/2 SBO, patient was started on Flagyl, IV vancomycin, cefepime on 06/25. IV vancomycin DC'd after 7 days. -Leukocytosis currently downtrending, resolved at present. Suspect intra- abdominal process. -Plan to manage as intra-abdominal process of unknown origin x10 days (07/05/2022). * Continue Flagyl, cefepime * Trend CBC Anemia: stable - Chronic, present on admission. With past gastric occult test positive. Hemoglobin decreased to 6.9 after receiving IV fluids on 06/18. Hemoglobin 6.3, down from 8.6. Now status post transfusion of 2 units packed red blood cells. * Trend CBC * Hematology consult to evaluate concern for terminal deterioration secondary to cancer. Appreciate recs. Ovarian cancer High-grade ovarian carcinoma diagnosed 03/2020; has received combination of chemotherapy and initial surgery which was performed at [facility] [place]. Has Neulasta Onpro device. Avastin last given ~6 weeks ago. Baseline hemoglobin fluctuates from 7.510.0 in the setting of chemotherapy and malignancy, with associated thrombocytopenia to 28 on admission. Last completed chemo carbop/doxil ~20 days ago, suspect thrombocytopenia is 2/2 chemo toxic effect. - Therapeutic paracentesis q4-6 weeks, performed 06/19 with output of about 1 L. - Dr. Naylor oncology aware of patient's admission, will follow peripherally with follow up after discharge unless oncologic needs arise while inpatient. Consult placed to Dr. Burch (see above). -Patient scheduled for telehealth visit appointment with MD Duncan. After this appointment, she will decide on whether she wants to initiate hospice care. Protein calorie malnutrition - History of weight loss (weighed 110 lbs prior to cancer diagnosis), hypoglycemia, several admissions for small bowel obstruction during which she was n.p.o. and required parenteral nutrition. * Continue parenteral nutrition with assistance by pharmacy/dietitian for caloric needs, until adequate oral intake. * Replete electrolytes as necessary. Hypothyroidism * Continue home levothyroxine Anxiety/depression * Continue sertraline. * Continue Ativan 0.5 mg PO twice daily as needed. DVT prophylaxis: Lovenox 40 mg daily CODE STATUS: Full code Disposition: Med/Surg Diet: CLD (2) Anemia: (3) Ovarian cancer: (4) Severe protein-calorie malnutrition: (5) Hypokalemia: (6) Hypothyroidism: (7) Colostomy present: (8) GERD (gastroesophageal reflux disease): (9) Hyponatremia: (10) Ascites: (11) Diffuse abdominal pain: (12) Anxiety and depression: (13) Thrombocytopenia: Admission and Anticipated Discharge Date Admission Date: June 18, 2022 Supervising Physician Co-Signing Physician Notes The patient was seen and examined by me. Case discussed with resident physician. Agree with assessment and plan. The new PEG tube is functional without incident. Lungs are clear. Heart rhythm is regular. Subjective No acute events overnight. On review of nursing records, patient received 13.5 mg since yesterday on 20 pushes of 0.5 mg IV Dilaudid every 15 minutes via CLINICAL NURSE EDUCATOR (32 attempts). This morning, she reports that the adjusted dose of Dilaudid helped her "catch up" on her pain yesterday. However, this morning, she woke up with pain. She also reports some nausea despite unclamping her PEG tube. She has not had a bowel movement nor is she passing gas into her ostomy. Review of Systems Review of Systems: All systems reviewed & are unremarkable except as noted in HPI & below Physical Exam Physical Exam: General: No acute distress HEENT: PERRLA. Normal conjunctiva, anicteric sclera. Oropharynx normal. Respiratory: Normal respiratory effort, CTA BL. Cardiovascular: RRR without murmurs, gallops, or rubs. No edema. GI: No air in ostomy bag. Skin around PEG tube site clean and dry. Soft abdomen with bowel sounds heard on auscultation. Mildly tender in upper quadrants bilaterally. Neuro: Alert and oriented x3. Results & Data Results & Data ([facility]) Vital Signs (Past 12 Hours) Vital Signs Temp Pulse Pulse Resp BP Pulse Ox O2 Del Method 07/02/22 08:00 Room Air 07/02/22 11:24 36.6 C 86 16 138/80 98 Room Air 07/02/22 08:21 36.3 C L 87 16 131/79 96 Room Air 07/02/22 02:32 36.5 C 106 H 15 131/84 93 Room Air Resident Activity Tracking Resident Involvement: Resident Care Provided Care Provided: Adult Hospital Medicine
[2022-07-02] MEDS ORDERED: HYDROmorphone BOLUS from BAG IV PRN (14:35)
[2022-07-02] MEDS ORDERED: HYDROmorphone/NSS 100 MG/100 ML BAG IV SCH (14:45)
[2022-07-02] MEDS ORDERED: HYDROMORPHONE IV SCH (15:00)
[2022-07-02] MEDS ORDERED: [UNRECOGNIZED DRUG - OTHER] IV SCH (15:00)
[2022-07-02] MEDS ORDERED: NSS IV SCH (15:00)
[2022-07-02] MEDS: LORazepam 0.5 MG in SYRINGE 0 ML IV PRN ×2 (15:03→21:29)
--- NOTE | 2022-07-02 15:34 | Billing Data ---
Date of Service July 02, 2022 Coding Level of Care Code 64730 Subseq Hosp Care Lvl 2
[2022-07-02] MEDS ORDERED: CLINOLIPID 20% IV SCH (16:00)
[2022-07-02] MEDS ORDERED: AMINO ACID 8% IV SCH (16:00)
[2022-07-02] MEDS ORDERED: CENTRAL TPN IV SCH (16:00)
[2022-07-02] MEDS ORDERED: [UNRECOGNIZED DRUG - OTHER] IV SCH (16:00)
[2022-07-02] MEDS ORDERED: FAT EMULSION IV SCH (16:00)
[2022-07-02] MEDS: METHYLNALTREXONE BROMIDE 12 MG/0.6 ML VIAL SQ SCH (17:29)
[2022-07-02] MEDS: HYDROmorphone INJ 1 MG/ML SYRINGE IV SCH (21:26)
[2022-07-02] MEDS: LIDOCAINE 5% 1 PATCH TD SCH (22:38)
[2022-07-03] MEDS: STOP CLINOLIPID SCH (00:12)
[2022-07-03] MEDS: ondansetron HCL 8 MG in DEXTROSE 5% 50 ML IV SCH ×4 (04:09→22:02)
[2022-07-03] MEDS: metroNIDAZOLE 500 MG/100 ML BAG IV SCH ×2 (04:10→12:04)
[2022-07-03] MEDS: CEFEPIME 2,000 MG in SYRINGE 0 ML IV SCH ×2 (05:30→14:51)
[2022-07-03] MEDS: LEVOTHYROXINE SODIUM 25 MCG TABLET PO SCH (05:30)
[2022-07-03 06:45] LABS: Basophils # (auto) 0.04 K/uL (0-0.2); Basophils % (auto) 0.5 %; Eosinophils # (auto) 0.02 K/uL (0-0.50); Eosinophils % (auto) 0.3 %; Hematocrit (blood only) 27.6 % (34.1-44.9); Hemoglobin 8.7 g/dl (12.0-16.0); Immature Granulocytes # (auto) 0.05 K/uL (0.00-0.02); Immature Granulocytes % (auto) 0.7 %; Lymphocytes # (auto) 0.56 K/uL (1.2-3.4); Lymphocytes % (auto) 7.7 %; Mean Corpuscular Hemoglobin 29.7 pg (25.0-34.0); Mean Corpuscular Hgb Conc 31.5 g/dL (32.0-36.0); Mean Corpuscular Volume 94.2 fL (80.0-100.0); Mean Platelet Volume 11.3 fL (9.4-12.3); Monocytes # (auto) 0.72 K/uL (0.24-0.82); Monocytes % (auto) 9.9 %; Neutrophils % (auto) 80.9 %; Platelet Count 143 K/uL (130-400); RDW Coefficient of Variation 17.5 % (11.5-14.5); RDW Standard Deviation 60.1 fL (36.4-46.3); Red Blood Count 2.93 M/uL (3.93-5.22); White Blood Count 7.29 K/ul (4.8-10.8)
[2022-07-03 07:05] LABS: BUN Creatinine Ratio 39.2 (10-20); Calcium 8.2 mg/dl (8.5-10.1); Creatinine Clr Calc Pharmacy 100.3 ml/min; Est GFR (African American) 125.5 ml/min; Est GFR (Non-African American) 108.3 ml/min; Magnesium 1.6 mg/dl (1.7-2.4); Phosphorus 4.1 mg/dl (2.5-4.9); Potassium 4.4 mmol/L (3.5-5.1)
[2022-07-03] MEDS: FAMOTIDINE 20 MG in SYRINGE 3 ML IV SCH ×2 (08:58→22:01)
[2022-07-03] MEDS: HEPARIN SOD 5,000 UNIT/0.5 ML VIAL SQ SCH ×2 (08:59→21:17)
[2022-07-03] MEDS: NYSTATIN/TRIAMCIN OINT 15 GM TUBE EXT SCH ×2 (08:59→21:17)
[2022-07-03] MEDS: FLUTICASONE FUROATE 100MCG 14 PUFFS/INHALER INH SCH (08:59)
[2022-07-03] MEDS: SERTRALINE HCL 100 MG TABLET PO SCH (08:59)
[2022-07-03] MEDS: PANTOprazole 40 MG in SYRINGE 0 ML IV SCH ×2 (08:59→22:02)
[2022-07-03] MEDS: SUCRALFATE 1 GM/10 ML UDC PO SCH ×4 (09:00→22:03)
--- NOTE | 2022-07-03 09:03 | Ultrasound Report ---
US abdomen ltd ascites CLINICAL HISTORY: R/o ascites COMPARISON STUDY: Abdomen and pelvis CT 06/26/2022. FINDINGS: Small amount of multiloculated/multiseptated fluid collection seen within the abdomen and p bryce. This is similar to the prior study and likely corresponds the patient's known peritoneal carci nomatosis. Secondary infection would be impossible to exclude by imaging. Small bilateral pleural eff usions and left-sided hydronephrosis again noted. IMPRESSION: 1. No change in the small amount of multiloculated/multiseptated fluid collections within the abdomen and pelvis. This likely corresponds to the patient's known peritoneal carcinomatosis. Secondary infe ction would be a possible to exclude by imaging. This would not be amenable to percutaneous drainage. 2. Small bilateral pleural effusions and left-sided hydronephrosis persists. ACT 112: Negative or not required by law. Electronically signed by: William Jaimes M.D. 07/03/2022 9:01 AM
[2022-07-03] MEDS: PROMETHAZINE HCL 6.25 MG in SODIUM CHLORIDE 0.9% 50 ML IV PRN (10:15)
[2022-07-03] MEDS: LORazepam 0.5 MG in SYRINGE 0 ML IV PRN ×2 (12:56→19:01)
[2022-07-03] MEDS: PROMETHAZINE HCL 12.5 MG in SODIUM CHLORIDE 0.9% 50 ML IV SCH ×2 (13:00→22:34)
[2022-07-03] MEDS: MAGNESIUM SULFATE / D5W 1 GM/100 ML BAG IV SCH ×4 (13:00→17:59)
[2022-07-03] MEDS ORDERED: CLINOLIPID 20% IV SCH (16:00)
[2022-07-03] MEDS ORDERED: [UNRECOGNIZED DRUG - OTHER] IV SCH (16:00)
[2022-07-03] MEDS ORDERED: FAT EMULSION IV SCH (16:00)
[2022-07-03] MEDS ORDERED: AMINO ACID 8% IV SCH (16:00)
[2022-07-03] MEDS ORDERED: CENTRAL TPN IV SCH (16:00)
[2022-07-03] MEDS: SODIUM CHLORIDE 0.9% 1000ML 1,000 ML IV SCH (17:16)
--- NOTE | 2022-07-03 19:20 | Hospitalist Progress Note ---
Date of Service July 03, 2022 Assessment & Plan (1) SBO (small bowel obstruction): Plan: 57-year-old female past medical history metastatic ovarian cancer with peritoneal carcinomatosis and ascites, recurrent SBO, GERD, asthma, anxiety/depression admitted for recurrent SBO. Partial SBO sec to chronic malignancy: - Multifactorial. W/ ascites now s/p therapeutic paracentesis, hx multiple abdominal surgeries, adhesions, and intra-abdominal malignancy. - Presented with abdominal pain and nausea, with CTAP showing partial small bowel obstruction. No evidence of perforation or pneumoperitonitis. - S/p EGD with PEG tube placement 06/[address] Celeste. -Partial resolution of obstruction on 06/27. -Due to concern for intra-abdominal infectious process / SBO, patient was started on Flagyl, IV vancomycin, cefepime on 06/25. IV vancomycin DC'd after 7 days. -Started [employer] with IV Dilaudid following continue pain requirement despite titrating up as needed. Converted to continuous Dilaudid drip after 24 hours. -Following discussion with consulting oncologist at [facility], patient elected to discontinue medical management and transition to comfort care with the goal to discharge to home hospice. and mother at bedside during discussion. They expressed awareness and understanding of the plan moving forward. -Case management made aware and will begin coordinating home hospice care prior to discharge. * Full liquid diet, stopped parenteral nutrition * On hydromorphone drip. Starting at 0.5 mg infusion, titrate up to 0.9 mg/h. Can increase by 0.1 mg/ 30 minutes as needed. * Continue with scheduled IV Zofran. As needed Phenergan, Carafate. One-time dose of 12 mg IV Phenergan administered today. Will evaluate nausea with patient tomorrow. * IV Pepcid, IV Protonix for heartburn * Stopping antibiotic management (comfort measures as above) Ovarian cancer High-grade ovarian carcinoma diagnosed 03/2020; has received combination of chemotherapy and [place] [facility] [place] + Neulasta Onpro device. Avastin last given ~6 weeks ago. Lower blood counts sec to chemo. - Therapeutic paracentesis q4-6 weeks, performed 06/19 with output of about 1 L. - Oncology was consulted. -Patient now transition to comfort care with goal to discharge to home hospice following telehealth appointment with consulting oncologist from [facility]. Hypothyroidism * Continue home levothyroxine Anxiety/depression * Continue sertraline. * Continue Ativan 0.5 mg PO twice daily as needed. DVT prophylaxis: Lovenox 40 mg daily CODE STATUS: DNR/DNI Disposition: Med/Surg. Discharge to home hospice pending case management care coordination Diet: FLD (2) Anemia: (3) Ovarian cancer: (4) Severe protein-calorie malnutrition: (5) Hypokalemia: (6) Hypothyroidism: (7) Colostomy present: (8) GERD (gastroesophageal reflux disease): (9) Hyponatremia: (10) Ascites: (11) Diffuse abdominal pain: (12) Anxiety and depression: (13) Thrombocytopenia: Admission and Anticipated Discharge Date Admission Date: June 18, 2022 Supervising Physician Co-Signing Physician Notes Resident Physician Supervision Note: I independently interviewed and examined the patient and verified the francis history and physical, reviewed labs and image studies and agree with resident findings and care plan. Subjective No acute events overnight. Patient reportedly slept well. She does report some nausea and increased bilateral lower abdominal discomfort. Patient had goals of care discussion with consulting oncologist at [facility]. Patient is now open to transitioning to comfort care. Antibiotics stopped. TPN stopped. Continue Dilaudid drip for continued pain requirement. Patient diet advanced to full liquids. Patient made DNR/DNI. Review of Systems Review of Systems: All systems reviewed & are unremarkable except as noted in HPI & below Physical Exam Physical Exam: General: No acute distress HEENT: PERRLA. Normal conjunctiva, anicteric sclera. Oropharynx normal. Respiratory: Normal respiratory effort, CTA BL. Cardiovascular: RRR without murmurs, gallops, or rubs. No edema. GI: No air in ostomy bag. Skin around PEG tube site clean and dry. Soft abdomen with bowel sounds heard on auscultation. Mildly tender in upper quadrants bilaterally. Pelvis: Some swelling noted in the pubis, vulva, and labia. Findings consistent with dependent edema. Neuro: Alert and oriented x3. Results & Data Results & Data ([facility] [place]) Vital Signs (Past 12 Hours) Vital Signs Temp Pulse Resp BP Pulse Ox O2 Del Method O2 Del Method 07/03/22 15:32 36.8 C 95 H 18 159/91 H 96 Room Air 07/03/22 14:00 Room Air 07/03/22 11:14 36.6 C 92 H 16 135/80 98 Room Air 07/03/22 07:34 36.6 C 95 H 16 151/90 H 98 Room Air Resident Activity Tracking Resident Involvement: Resident Care Provided Care Provided: Adult Hospital Medicine
[2022-07-03] MEDS: HYDROmorphone INJ 1 MG/ML SYRINGE IV SCH (22:01)
[2022-07-03] MEDS: LIDOCAINE 5% 1 PATCH TD SCH (22:03)
[2022-07-04] MEDS: ondansetron HCL 8 MG in DEXTROSE 5% 50 ML IV SCH ×4 (04:37→21:24)
[2022-07-04] MEDS: LEVOTHYROXINE SODIUM 25 MCG TABLET PO SCH (04:37)
--- NOTE | 2022-07-04 08:00 | Hospitalist Progress Note ---
Date of Service July 04, 2022 Assessment & Plan (1) SBO (small bowel obstruction): Plan: 57-year-old female past medical history metastatic ovarian cancer with peritoneal carcinomatosis and ascites, recurrent SBO, GERD, asthma, anxiety/depression admitted for recurrent SBO. Partial SBO sec to chronic malignancy: - Multifactorial. W/ ascites now s/p therapeutic paracentesis, hx multiple abdominal surgeries, adhesions, and intra-abdominal malignancy. - Presented with abdominal pain and nausea, with CTAP showing partial small bowel obstruction. No evidence of perforation or pneumoperitonitis. - S/p EGD with PEG tube placement 06/[address] Celeste. -Partial resolution of obstruction on 06/27. -Due to concern for intra-abdominal infectious process / SBO, patient was started on Flagyl, IV vancomycin, cefepime on 06/25. IV vancomycin DC'd after 7 days. -Started [employer] with IV Dilaudid following continue pain requirement despite titrating up as needed. Converted to continuous Dilaudid drip after 24 hours. -Following discussion with consulting oncologist at [facility] [place], patient elected to discontinue medical management and transition to comfort care with the goal to discharge to home hospice. and mother at bedside during discussion. They expressed awareness of and agreement with the plan moving forward. -Case management made aware and will begin coordinating home hospice care prior to discharge. * Full liquid diet, stopped parenteral nutrition * On hydromorphone drip. Pain controlled with continuous drip at 0.8mg/hr. Can increase by 0.1 mg/ 30 minutes as needed. * Continue with scheduled IV Zofran. As needed Phenergan, Carafate. One-time dose of 12 mg IV Phenergan administered today. Will evaluate nausea with patient tomorrow. * IV Pepcid, IV Protonix for heartburn * Recommend that adjustments, unilateral elevation to relieve dependent vulvar edema Ovarian cancer High-grade ovarian carcinoma diagnosed 03/2020; has received combination of chemotherapy and initial surgery which was performed at [facility] [place]. + Neulasta Onpro device. Avastin last given ~6 weeks ago. Lower blood counts sec to chemo. - Therapeutic paracentesis q4-6 weeks, performed 06/19 with output of about 1 L. - Oncology was consulted. -Patient now transitioned to comfort care with goal to discharge to home hospice following telehealth appointment with consulting oncologist from [facility]. Hypothyroidism * Continue home levothyroxine Anxiety/depression * Continue sertraline. * Continue Ativan 0.5 mg PO twice daily as needed. DVT prophylaxis: Stopping heparin CODE STATUS: DNR/DNI Disposition: Med/Surg. Discharge to home hospice pending case management care coordination Diet: FLD (2) Anemia: (3) Ovarian cancer: (4) Severe protein-calorie malnutrition: (5) Hypokalemia: (6) Hypothyroidism: (7) Colostomy present: (8) GERD (gastroesophageal reflux disease): (9) Hyponatremia: (10) Ascites: (11) Diffuse abdominal pain: (12) Anxiety and depression: (13) Thrombocytopenia: Admission and Anticipated Discharge Date Admission Date: June 18, 2022 Supervising Physician Co-Signing Physician Notes Resident Physician Supervision Note: I independently interviewed and examined the patient and verified the francis history and physical, reviewed labs and image studies and agree with resident findings and care plan. Subjective No acute events overnight. This morning, patient reports pain is improved. Dilaudid drip has been increased to 0.8 mg/h. She still reports some fatigue and low blood pressure from dependent edema. Patient is back on full diet, which he appears to tolerated well. Per nursing, patient refused Breo and heparin. Review of Systems Review of Systems: All systems reviewed & are unremarkable except as noted in HPI & below Physical Exam Physical Exam: General: No acute distress HEENT: PERRLA. Normal conjunctiva, anicteric sclera. Oropharynx normal. Respiratory: Normal respiratory effort, CTA BL. Cardiovascular: RRR without murmurs, gallops, or rubs. No edema. GI: No air in ostomy bag. Skin around PEG tube site clean and dry. Soft abdomen with diminished bowel sounds heard on auscultation. Unclear if bowel sounds due to continuous suction. Pelvis: Some swelling noted in the pubis, vulva, and labia. Findings consistent with dependent edema. Neuro: Alert and oriented x3. Results & Data Results & Data ([facility]) Vital Signs (Past 12 Hours) Vital Signs Temp Pulse Pulse Resp BP O2 Del Method 07/04/22 07:00 95 H 07/04/22 07:31 36.5 C 108 H 18 137/85 Room Air 07/03/22 20:00 Room Air 07/03/22 23:00 104 H Resident Activity Tracking Resident Involvement: Resident Care Provided Care Provided: Adult Hospital Medicine
[2022-07-04] MEDS: HEPARIN SOD 5,000 UNIT/0.5 ML VIAL SQ SCH (08:19)
[2022-07-04] MEDS: NYSTATIN/TRIAMCIN OINT 15 GM TUBE EXT SCH ×2 (08:19→21:25)
[2022-07-04] MEDS: SERTRALINE HCL 100 MG TABLET PO SCH (08:20)
[2022-07-04] MEDS: SUCRALFATE 1 GM/10 ML UDC PO SCH ×4 (08:20→21:26)
[2022-07-04] MEDS: FLUTICASONE FUROATE 100MCG 14 PUFFS/INHALER INH SCH (08:21)
[2022-07-04] MEDS: PROMETHAZINE HCL 12.5 MG in SODIUM CHLORIDE 0.9% 50 ML IV SCH ×2 (08:21→21:25)
[2022-07-04] MEDS: PANTOprazole 40 MG in SYRINGE 0 ML IV SCH ×2 (08:21→21:26)
[2022-07-04] MEDS: FAMOTIDINE 20 MG in SYRINGE 3 ML IV SCH ×2 (08:24→21:26)
[2022-07-04] MEDS: LORazepam 0.5 MG in SYRINGE 0 ML IV PRN (14:36)
[2022-07-04] MEDS: METHYLNALTREXONE BROMIDE 12 MG/0.6 ML VIAL SQ SCH (17:20)
[2022-07-04] MEDS: SODIUM CHLORIDE 0.9% 1000ML 1,000 ML IV SCH (17:48)
[2022-07-04] MEDS: HYDROmorphone INJ 1 MG/ML SYRINGE IV SCH (21:25)
[2022-07-04] MEDS: LIDOCAINE 5% 1 PATCH TD SCH (21:27)
[2022-07-05] MEDS: ondansetron HCL 8 MG in DEXTROSE 5% 50 ML IV SCH ×2 (04:30→10:56)
[2022-07-05] MEDS: LEVOTHYROXINE SODIUM 25 MCG TABLET PO SCH (05:33)
--- NOTE | 2022-07-05 05:58 | Hospitalist Progress Note ---
Date of Service July 04, 2022 Assessment & Plan (1) Ovarian cancer: Plan: Unfortunately but not unexpectedly [facility] discussion reached similar conclusions overall, that further specific oncologic therapy will cause harm without producing good. At this point patient is essentially without significant ability to absorb oral meds or enteral nutrition but fortunately has options with [facility] hospice for intravenous Dilaudid pain management. I spoke with the patient, her , sister, daughter all of whom are in synchrony regarding priority of getting her home on hospice and a focus on optimal symptom management. They are all very aware of the prognosis Plan Patient will go home on hospice with aggressive symptom management there. I suggested that the hospice team itself will be positioned for day-to-day technical management but I will be available if questions or concerns with which I can help arise. Admission and Anticipated Discharge Date Admission Date: June 18, 2022 Subjective Patient has reasonable control of pain currently with IV Dilaudid. She is at peace with the decision to go home on hospice Results & Data Results & Data ([facility]) Vital Signs (Past 12 Hours) Vital Signs Temp Pulse Pulse Resp BP Pulse Ox O2 Del Method 07/04/22 23:00 111 H 07/04/22 23:12 36.9 C 111 H 18 134/87 91 Room Air PG Care Time/CCT Total # of Minutes Spent Total Time Spent with Patient: Total time spent is greater than 50% in coordination of care (as documented) at patient's floor/unit and/or counseling patient: Coding Level of Care Code 39237 Subseq Hosp Care Lvl 1 Diagnoses Ovarian cancer C56.9
[2022-07-05] MEDS: PANTOprazole 40 MG in SYRINGE 0 ML IV SCH (09:42)
[2022-07-05] MEDS: NYSTATIN/TRIAMCIN OINT 15 GM TUBE EXT SCH (09:42)
[2022-07-05] MEDS: FAMOTIDINE 20 MG in SYRINGE 3 ML IV SCH (09:42)
[2022-07-05] MEDS: SERTRALINE HCL 100 MG TABLET PO SCH (09:43)
[2022-07-05] MEDS: PROMETHAZINE HCL 12.5 MG in SODIUM CHLORIDE 0.9% 50 ML IV SCH (09:43)
[2022-07-05] MEDS: SUCRALFATE 1 GM/10 ML UDC PO SCH ×2 (09:43→12:37)
[2022-07-05] MEDS: LORazepam 0.5 MG in SYRINGE 0 ML IV PRN (10:16)
--- NOTE | 2022-07-05 11:07 | Discharge Summary ---
Date of Service July 05, 2022 Admission HPI Per Admitting Provider Muriel is a 57-year-old female with a past medical history of metastatic ovarian cancer with peritoneal carcinomatosis and ascites with recurrent small bowel obstruction, GERD, asthma, anxiety/depression who recently underwent chemotherapy 2 weeks ago with a dose of Neulasta 06/04 and who was recently admitted 06/03-05/2017 for recurrent SBO who presents emergency department with 3 days of worsening abdominal discomfort, minimal clear liquid intake, and a feeling that her bowel obstruction has recurred. Patient has had 5 small bowel obstructions in the last 6 months thought to be due to intra-abdominal cancer versus adhesions. Past partial SBO's have resolved with conservative medical management. Seen at bedside with tan Hampton On Sunday (2 days ago) felt like she might be breweing a blockage. Started a clear liquid diet for conservative management. Was having just thin-liquid output into her ostomy which is normally more thick liquid. No improvement over the next day and a half, last night developed mroe back pain and abdominal pressure in her lower abdomen and with pressure going up into the upper abdomen. +Nausea, no vomiting. Does tend to have worsened acid reflux with obstructions which has also been present. +hiccuping in the last day. No fevers or chills Gets a little short of breath with pain episodes. Hx of high grade ovarian cancer dx 03/2020. Had surgery to remove large mass which was initially thought to be a cyst. Had a complete hysterectomy. Cyst was just a cyst but other ovary had cancer Had chemo 2020 had 'came back with a vengeance'. Jun 2021 had 2 section of bowel removed, coloscopy place, and debulking of abdomen. Started chemo 08/2020 and has been on chemo since. Current on doxil/carboplatin --> last 16 days ago. Gets neulasta after treatments. Missed a followup tx 2 days ago, was scheduled to go back to [place] next week to [facility] and was goign to follow with GynOnc at that facility. They redid the original [facility] [place] --> originally thought to be mucinous now though tot be clear cell. Pending repeat imaging after doxil/carboplatin. Migraines doing well on Ajovy. Just had on Sunday. Takes dapsone for congenital itching, works well for her. Dr. [facility]. Dr. Jacobs. Dr Villagran at Gynonc locally. [facility] locally for onc care. Medical History: Reviewed Medications: Reviewed Surgical History: Reviewed Allergies: Reviewed Social History: No tobacco, Etoh use. No Rec drug or current MM use. has tried med marijuana for migraines in the past but exacerbated migraines. Code Status: Full Code, reviewed with pt and . Admission Exam Per Admitting Provider General: A&Ox3. NAD. Cooperative. Appears chronically malnourished/chronically HEENT: Atraumatic, normocephalic. Vision/hearing intact. Mucous membranes dry Thorax: Port in place. No overlying warmth/erythema/tenderness Pulm: CTAB A&P. -wheezes, -rales, -rhonchi. Symmetrical chest rise. No increased work of breathing. No respiratory distress. Cardiac: Tachycardic, -mrg. Radial pulses intact and symmetrical. Abdominal: Ostomy in place, draining thin liquid output. Abdomen is nontender to palpation and without rebound/guarding Extremities: Warm, dry. Moves all extremities equally. No edema. Cap refill approximately 2 seconds. Principal Diagnosis Recurrent SBO, peritoneal carcinomatosis Discharge Exam General: No acute distress HEENT: PERRLA. Normal conjunctiva, anicteric sclera. Oropharynx normal. Respiratory: Normal respiratory effort, CTA BL. Cardiovascular: RRR without murmurs, gallops, or rubs. No edema. GI: No air in ostomy bag. Skin around PEG tube site clean and dry. Soft abdomen with diminished bowel sounds heard on auscultation. Unclear if bowel sounds due to continuous suction. Pelvis: Some swelling noted in the pubis, vulva, and labia. Findings consistent with dependent edema. Neuro: Alert and oriented x3. Discharge Data Allergies Allergy/AdvReac Type Severity Reaction Status Date / Time doxycycline Allergy Intermediate RASH Verified 06/12/22 10:36 gluten AdvReac Intermediate Abdominal Verified 06/12/22 10:36 Pain lactose AdvReac Intermediate Abdominal Verified 06/12/22 10:36 Pain Penicillins AdvReac Intermediate Nausea, Verified 06/12/22 10:36 diarrhea Consultations 06/18/22 10:27 ED Decision to Admit Stat 06/19/22 07:47 Consult General Surgery Routine 06/27/22 12:06 Consult Hematology Routine Procedures Performed Operation Date: 06/21/22 07:00 Actual Procedures p EGD Gastric Tube Placement(Not Applicable) - Manpreet Celeste, DO Ordered Studies 06/18/22 06:42 CT abd pelvis IV con only Stat 06/19/22 09:00 US paracentesis abd w/image Routine 06/25/22 16:20 CT Abd and Pelvis [CT abd pelvis IV con only] Stat 06/26/22 11:32 CT abd pelvis oral and IV con Urgent 07/03/22 07:00 US abdomen ltd ascites Routine Hospital Course (1) SBO (small bowel obstruction): 57-year-old female past medical history metastatic ovarian cancer with peritoneal carcinomatosis and ascites, recurrent SBO, GERD, asthma, anxiety/depression admitted for recurrent SBO. Partial SBO sec to chronic malignancy - ovarian: - Multifactorial. W/ ascites now s/p therapeutic paracentesis, hx multiple abdominal surgeries, adhesions, and intra-abdominal malignancy. - Presented with abdominal pain and nausea, with CTAP showing partial small bowel obstruction. No evidence of perforation or pneumoperitonitis. - S/p EGD with PEG tube placement 06/[address] Celeste. -Partial resolution of obstruction on 06/27. -Due to concern for intra-abdominal infectious process 2/2 SBO, patient was started on Flagyl, IV vancomycin, cefepime on 06/25. IV vancomycin DC'd after 7 days. -SBO symptoms truly secondary to peritoneal carcinomatosis from metastatic ovarian cancer. -Started FENCE INSTALLER HELPER with IV Dilaudid following continue pain requirement despite titrating up as needed. Converted to continuous Dilaudid drip after 24 hours. -Following discussion with consulting oncologist at [facility], patient elected to discontinue medical management and transition to comfort care with the goal to discharge to home hospice. and mother at bedside during discussion. They expressed awareness of and agreement with the plan moving forward. -[facility] Home Health Care chosen for hospice agency: * to continue Full liquid diet as comfort feed. stopped parenteral nutrition * On hydromorphone drip. Pain controlled with continuous drip at 0.8mg/hr. Can increase by 0.1 mg/ 30 minutes as needed. * Patient requested IV Pepcid, IV Protonix for heartburn. Spoke with hospice care team, who explained that they do not do IV Pepcid or Protonix but will reassess when the patient is at home and may reconsider. Patient will receive p.o. Pepcid, Protonix (with the tube clamped) Ovarian cancer High-grade ovarian carcinoma diagnosed 03/2020; has received combination of chemotherapy and initial surgery which was performed [place] [facility]. + Neulasta Onpro device. Hypothyroidism * On levothyroxine * to discontinue once admitted to hospice. Anxiety/depression * Continue sertraline. * Continue Ativan 0.5 mg PO twice daily as needed. (2) Anemia: (3) Ovarian cancer: (4) Severe protein-calorie malnutrition: (5) Hypokalemia: (6) Hypothyroidism: (7) Colostomy present: (8) GERD (gastroesophageal reflux disease): (9) Hyponatremia: (10) Ascites: (11) Diffuse abdominal pain: (12) Anxiety and depression: (13) Thrombocytopenia: Total Time Total Time Spent Total Time Spent (In Minutes): 90 Discharge Plan Discharge Items Patient Disposition: Hospice - Home Reason For Visit: RECURRENT SBO, ANEMIA Discharge Diagnosis: Recurrent SBO Activity: Per Instructions section Non-emergency contact: Primary Care Provider Call non-emergency contact if: your symptoms worsen, your pain is not controlled, your pain is worsening and your pain is unusual for you Follow-up/Referrals: Misbah Mast DO [Primary Care Provider] - Diet: Regular Addtl Attending Provider Instructions: Dear Muriel, You were brought to the hospital because of abdominal pain related to small bowel obstruction. You were admitted for continued supervision and management. To relieve the discomfort caused by nasogastric tube placements and multiple prior instances of a small bowel obstruction, our surgical team installed a PEG, or percutaneous endogastric tube to relieve some pressure from the small bowel obstruction. Started you on a course of broad-spectrum antibiotics to cover you for a potential infection. We also gave you pain medicines as needed. Over the course of your stay, we consulted with our oncology service and it was determined that your obstruction symptoms likely stemmed from terminal manifestations of ovarian cancer, a condition known as persistent peritoneal carcinomatosis. They recommended transitioning to palliative care and determining your goals of care moving forward. You also had a visit via teleconference with the oncology service at [facility] and they recommended the same thing. Therefore, with your permission, we began coordinating your transfer home to hospice care. Now that this has been completed, we feel that you are ready to be discharged home. We stopped most of your nonessential medicines. However we are sending you home on an IV Dilaudid FENCE INSTALLER HELPER. Please use as instructed for pain management. Hospice care nurse will be there to help adjust the dose up or down to appropriately manage your pain. If you have any further questions regarding your FENCE INSTALLER HELPER, you may refer them to your hospice care team. We also kept in touch with your primary care physician, Dr. Misbah Mast, so if you have any questions or concerns that you feel your hospice care team has not appropriately answered or is unable to, you may reach out to him as well. It has been our pleasure to care for you here at [facility]. If you have any questions regarding your stay here, you may call us at [phone]. Pending Studies at Discharge: No Stand-Alone Forms: My [facility] Medications and DC Order Prescriptions: Continued ondansetron 8 mg tablet,disintegrating 8 mg PO Q8H 30 Days Qty: 90 2RF lorazepam 0.5 mg tablet 0.5 mg PO BID PRN (Reason: anxiety) Qty: 45 0RF cholecalciferol (vitamin D3) 50 mcg (2,000 unit) capsule 50 mcg PO QAM fluticasone propionate [Flonase Allergy Relief] 50 mcg/actuation spray,suspension 1 spray intranasal BID Rx Instructions: administer into each nostril fexofenadine [Liana Allergy] 180 mg tablet 180 mg PO HS topiramate [Topamax] 100 mg tablet 100 mg PO QPM polyethylene glycol 3350 [Miralax] 17 gram/dose powder 17 g PO DAILY senna 8.6 mg capsule 8.6 mg PO DAILY [id number] Capsule 1 cap PO DAILY PRN (Reason: MIGRAINES) Rx Instructions: MIDRIN acetaminophen [Tylenol] 325 mg tablet 325 mg PO QID PRN (Reason: Pain) nystatin 100,000 unit/gram powder 1 applic topical .COMPLEX Qty: 60 0RF Rx Instructions: 1 applic topically with ostomy changes; sertraline 100 mg tablet 200 mg PO QPM montelukast 10 mg tablet 10 mg PO QPM pantoprazole 40 mg tablet,delayed release (DR/EC) 40 mg PO BID 30 Days Qty: 60 2RF buspirone 5 mg tablet 5 mg PO BID Qty: 60 2RF prochlorperazine maleate [Compazine] 5 mg Tablet 5 mg PO BID PRN (Reason: Nausea) Qvar RediHaler 40 mcg/actuation Hfa Aerosol Breath Activated 1 inh INHALATION QAM Ajovy Autoinjector 225 mg/1.5 mL Auto-Injector 225 mg SUBCUT MONTHLY Rx Instructions: RECIEVES 1 X MONTHLY famotidine 20 mg tablet 20 mg PO QAM dapsone 25 mg tablet 25 mg PO BID levothyroxine 25 mcg Tablet 25 mcg PO DAILY lidocaine HCl [Lidocaine Viscous] 2 % solution 8.75 ml mucous membrane QID 14 Days Qty: 700 1RF Rx Instructions: Gargle and swallow as needed for throat pain oxycodone-acetaminophen 5-325 mg tablet 1 tab PO Q4 PRN (Reason: Pain) Discharge Orders: Discharge Order (Routine); Ordered 07/05/22 Ordered By: Ye Haynes Admission Data Admit Date/Time: 06/18/22 11:28 Attending Provider: Charu Delacruz Admit Provider: Robin Urbina Primary Care Provider: Misbah Mast Other Providers: Robin Urbina ; Manpreet Celeste ; Suzi Burden ; Sravani Katz ; Mikayla Callaway ; Thaddeus Nguyen ; Alysa Sierra ; Shila Pal ; Nathan Mchugh ; Benitez Jalloh ; Madai Maldonado ; Arianne,No Attending ; Dg Amaya ; [facility] Other Interventions: Discharge Summary Assessment (RN) Last Done: 07/05/22 15:46 Supervising Physician Co-Signing Physician Notes Resident Physician Supervision Note: I independently interviewed and examined the patient and verified the francis history and physical, reviewed labs and image studies and agree with resident findings and care plan. Resident Activity Tracking Resident Involvement: Resident Care Provided Care Provided: Adult Hospital Medicine
== END 2022-07-05 16:00 | disposition hospice, home (50) | DRG 374 ==
LOC: ED 06:03 → SUATTDRO 11:28 → 2N 11:28 → 3N 06-20 18:51 → 2N 06-25 18:37 → 2S 06-26 07:24